=== PATIENT | female | born 1975 | race Caucasian/White ===

== ENCOUNTER 2016-06-13 19:23 | Emergency (ER) | payer MEDICAID ==
[~2016-06-13] VITALS: Ht 170.2 cm; Wt 127.0 kg
[~2016-06-13 19:23] MED LIST: ADIPEX-P37.5 M1 PO; ALBUTEROL-200 PUFFS/ IH; AMOXICILLIN 50500 MG PO; BENADRYL 25MG C25 MG PO; BENZONATATE100 M1 PO; BENZONATATE200 MG PO; CIPRO 500MG TA500 MG PO; CYMBALTA30 MG PO; DICYCLOMINE HCL20 MG PO; DILAUDID2 MG PO; ELAVIL GENERIC10 MG PO; ESTRADIOL2 MG PO; FLEXERIL10 MG PO; HYCODAN 1.5 MG480 ML PO; HYDROCODONE1 TABLET PO; KEFLEX 500MG.500 MG PO; LEVAQUIN250 M1 PO; LEVOFLOXACIN 5500 M1 PO; LISINOPRIL10 MG PO; LORTAB 5/500 501 TAB PO; LORTAB 500 MG-11 TAB PO; MEDROL 4MG. DOSE4 MG PO; METFORMIN500 MG PO; NAPROXEN500 MG PO; NOMEDS *; NORCO 325 MG-101 TAB PO; OMEPRAZOLE20 MG PO; PERCOCET1 TAB PO; PHENERGAN 25MG.25 M1 PO; PHENERGAN 25MG.25 MG PR; PREDNISONE50 MG PO; PRENATAL1 TA5 PO; PRILOSEC OTC20 MG PO; PROTONIX 40MG T40 MG PO; RANITIDINE HCL150 MG PO; SILVADENE CR 2020 GM EX; TESSALON PERLE100 M1 PO; TESSALON PERLE200 MG PO; TRIAMTERENE/HCT1 TA1 PO; VENTOLIN H0.09 MG/Ac IH; VICODIN 5/500 T1 TAB PO; VOLTAREN50 MG PO; VOLTAREN75 MG PO; ZANTAC 150150 MG PO; ZANTAC 300300 MG PO; ZESTRIL 10MG TA10 MG PO; ZITHROMAX Z PA250 MG PO; ZITHROMAX Z-PA250 M1 PO; ZITHROMAX Z-PA250 M2 PO; ZOFRAN4 MG PO
--- NOTE | 2016-06-13 20:08 | [facility] Report ---
History of Present Issue Date/Time Seen by Provider 06/13/162003 Visit Reason Pt arrived:Walked Presenting Problem:RIGHT EAR PAIN WITH SORE THROAT Location if Accident: Onset of symptoms date/time:/ or onset unknown for:MEDICAL HX UNKNOWN Have you (or family members/close friends) recently traveled outside the [place]? N If Yes, where/when: Have you had exposure to infectious disease within the past month? TB? Other? Specify: Patient states that she has been having sorethroat and pain in her right ear, states that she has not felt good for several days states that finally today she had to bring her son in to be seen so she registered to be seen also ALLERGIES Coded Allergies: Honey Bee (BEE,HONEY) (Mild, 12/28/14) milk (Mild, 05/03/15) Uncoded Allergies: CONTRAST MEDIA (Mild, 05/03/15) TAPE (S-BLISTERING WELTS 04/13/11) DISHWASHING LIQUID (STATES IT EATS THE SKIN OFF HER HANDS 08/19/12) Home Medications Active Scripts Ranitidine Hcl (Ranitidine 150MG) 150 MG PO DAILY #30 TAB Prov: 11/13/14 Reported Medications Metformin HCL (Metformin) 1,000 MG PO BID #60 TAB Albuterol Sulfate (Ventolin Hfa) 2 PUFFS IH PRN PRN SOA #18 LISINOPRIL (Lisinopril) 10 MG PO DAILY History Medical History General CAD? No Angina: No NE: No Hypertension? Yes Hyperlipidemia? No CHF? No DVT? No PE? No COPD? No Asthma? Yes Anemia? No GERD? Yes Gastric ulcers? No GI Bleed? No Hernia? Yes Thyroid Problems? No Hypothyroidism? No CVA? No Seizures? No Diabetes? Yes Insulin Dependent: No Insulin Pump: No Home FSBS? No Renal Insuffiency? No UTI? No Stones? No BPH? No GB Disease: Yes Nephritic Syndrome? No Asplenia? No Hepatitis? No Sickle Cell Disease? No Arthritis? No Migraines? No Cataracts? No Glaucoma? No MRSA? No HIV? No TB? No Anxiety? No Depression? No Cancer? No More? Yes Additional hx: NEUROPATHY Immunization HX DT/Tetanus UNKNOWN Flu NEVER Pneumonia NEVER Surgical Hx Previous Surgery?Y CHOLECYSTECTOMY 2007 ERCP STENT REPLACEMENT& D & C C- SECTION 06/18/08 D&E Family History Family HX Diabetes Yes CAD No Hypertension Yes Hyperlipidemia Yes Cancer No TB No Social History Smoking Hx Smoker: Current Every Day Smoker Tobacco: Yes Type Cigarettes Packs/day 1 1/2 - 2 Packs Alcohol Alcohol: No Review of Systems All Other Systems Reviewed and Negative ENT ear pain, throat pain. Comment Patient complaining of sorethroat, and pain in her right ear Physical Exam Vital Signs Vital Signs Date Time Temp Pulse Resp B/P Pulse O2 O2 Flow FiO2 Ox Delivery Rate 06/13 2028 98.2 111 16 98 06/13 1945 98.2 111 16 98 General Appearance normal appearance, WD/WN, no apparent distress Ear, Nose, Throat Throat red swollen, irritated, right ear mildly red, TM landmarks easily seen Respiratory Status Yes: trachea midline, chest symmetrical, non tender chest. No: respiratory distress. 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 No Departure Departure Time of Disposition 2027 Disposition DC Home or Self Care(routine) Clinical Impression Primary Impression: Upper respiratory infection Qualifiers: URI type: unspecified URI Qualified Code: J06.9 - Acute upper respiratory infection, unspecified Condition STABLE Patient Instructions DI for Ear Pain-Adult, Sore Throat Additional Instructions * Monitor Temp. Tylenol and/or Ibuprofen as needed. ER if fever is no less than 101 despite alternating Tylenol and Ibuprofen * Encourage fluids, water, Gatorade, powerade, pedialyte if /toddler/or child * Warm salt water gargles for throat irritation *Warm fluids *Sore throat lozenges *Sleep elevated *humidifier or vaporizer Follow up with family doctor Return if needed Discharge Counseling Counseled pt/family regarding diagnosis, medications/RX, home care, follow up needs Prescriptions Current Visit Scripts Azithromycin (Zithromycin (Z-AMANDA) 250MG Tab) 250 MG PO DAILY #6 TAB TAKE TWO (2) TABLETS ON DAY 1, THEN ONE (1) TABLET DAY #2 THRU #5 Methylprednisolone (Medrol Dose Amanda) 4 MG PO UD #1 AMANDA TAKE DIRECTED ON PACKAGING at 2031
[2016-06-13] MEDS ORDERED: MEDROL 4MG. DOSE4 MG PO (20:31)
[2016-06-13] MEDS ORDERED: ZITHROMAX Z PA250 MG PO (20:31)
--- OUTSIDE RECORDS SUMMARY | 2016-06-18 14:06 | External Medical Summary Rpt ---
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 48 20 20 08 WN YL 61 17 17 37 IN 0 64 PH E AR HC MA L CY 10 OF MG CY TA NT B HI AN A ME 68 03 04 30 30 00 HO Ac LO 38 -2 -1 .0 00 ME ti XI 20 3- 4- 00 06 TO ve CA 05 20 20 07 WN M 10 17 17 96 15 5 85 PH AR MG MA CY TA BL OF ET CY NT HI AN A ST 00 08 04 24 30 00 [place] Ac ER 40 -1 -0 .0 00 OF ti IL 97 1- 7- 00 06 ES ve E 99 20 20 25 SI WA 00 14 17 40 ON TE 9 73 AL R FO AR R TS IN JE PH CT AR IO MA N CY CE 68 03 04 40 10 00 HO Ac PH 18 -1 -0 .0 00 ME ti AL 00 6- 7- 00 06 TO ve EX 12 20 20 08 WN IN 20 17 17 33 2 62 PH 50 AR 0 MA MG CY CA OF PS UL CY E NT HI AN A [place] 00 03 04 [address] 71 -1 -0 .0 00 ME ti AT 30 6- 7- 00 06 TO ve IN 67 20 20 08 WN 83 17 17 33 10 1 61 PH 0, AR 00 MA 0 CY UN IT OF /G M CY CR NT EA HI M AN A LI 68 03 03 30 30 00 HO Ac SI 18 -0 -2 .0 00 ME ti NO 00 3- 4- 00 06 TO ve [place] 51 20 20 07 WN IL 40 17 17 84 3 60 PH 10 AR MA MG CY TA OF BL ET CY NT HI AN A RA 53 03 03 60 30 00 HO Ac NI 74 -0 -2 .0 00 ME ti TI 60 3- 4- 00 06 TO ve DI 25 20 20 07 WN NE 31 17 17 79 0 52 PH 15 AR 0 MA MG CY TA OF BL ET CY NT HI AN A FL 68 03 03 3. 3 00 HO Ac UC 46 -0 -2 00 00 ME ti ON 20 3- 4- 0 06 TO ve AZ 10 20 20 08 WN OL 34 17 17 25 E 0 83 PH 15 AR 0 MA MG CY TA OF BL ET CY NT HI AN A FE 00 03 03 30 30 00 HO Ac RR 90 -0 -2 .0 00 ME ti OU 47 3- 4- 00 06 TO ve S 59 20 20 07 WN BUENROSTRO 08 17 17 66 LF 0 31 PH AT AR E MA 32 CY 5 MG OF TA CY BL NT ET HI AN A ME 68 02 03 30 30 00 HO Ac LO 38 -2 -1 .0 00 ME ti XI 20 2- 7- 00 06 TO ve CA 05 20 20 07 WN M 10 17 17 96 15 5 85 PH AR MG MA CY TA BL OF ET CY NT HI AN A ME 68 02 03 60 30 00 HO Ac TF 38 -2 -1 .0 00 ME ti OR 20 2- 7- 00 06 TO ve OK 76 20 20 08 WN N 00 17 17 19 HC 5 32 PH L AR 1, MA 00 CY 0 MG OF TA CY BL NT ET HI AN A LE 68 02 03 10 10 00 HO Ac VO 18 -2 -1 .0 00 ME ti FL 00 2- 7- 00 06 TO ve OX 24 20 20 07 WN AC 10 17 17 92 IN 8 93 PH AR 50 MA 0 CY MG OF TA BL CY ET NT HI AN A FE 00 01 02 30 30 00 HO Ac RR 90 -2 -1 .0 00 ME ti OU 47 5- 7- 00 06 TO ve S 59 20 20 07 WN BUENROSTRO 08 17 17 66 LF 0 31 PH AT AR E MA 32 CY 5 MG OF TA CY BL NT ET HI AN A LI 68 01 02 30 30 00 HO Ac SI 18 -2 -1 .0 00 ME ti NO 00 5- 7- 00 06 TO ve [place] 51 20 20 07 WN IL 40 17 17 84 3 60 PH 10 AR MA MG CY TA OF BL ET CY NT HI AN A RA 53 01 02 60 30 00 HO Ac NI 74 -2 -1 .0 00 ME ti TI 60 5- 7- 00 06 TO ve DI 25 20 20 07 WN NE 31 17 17 79 0 52 PH 15 AR 0 MA MG CY TA OF BL ET CY NT HI AN A ME 68 01 02 30 30 00 HO Ac LO 38 -1 -1 .0 00 ME ti XI 20 7- 0- 00 06 TO ve CA 05 20 20 07 WN M 10 17 17 96 15 5 85 PH AR MG MA CY TA BL OF ET CY NT HI AN A ME 68 01 02 60 30 00 HO Ac TF 38 -1 -1 .0 00 ME ti OR 20 7- 0- 00 06 TO ve OK 76 20 20 07 WN N 00 17 17 34 HC 5 38 PH L AR 1, MA 00 CY 0 MG OF TA CY BL NT ET HI AN A FL 68 01 02 3. 3 00 HO Ac UC 46 -1 -1 00 00 ME ti ON 20 7- 0- 0 06 TO ve AZ 10 20 20 06 WN OL 34 17 17 75 E 0 10 PH 15 AR 0 MA MG CY TA OF BL ET CY NT HI AN A LE 68 01 02 10 10 00 HO Ac VO 18 -1 -1 .0 00 ME ti FL 00 1- 0- 00 06 TO ve OX 24 20 20 07 WN AC 10 17 17 92 IN 8 93 PH AR 50 MA 0 CY MG OF TA BL CY ET NT HI AN A TR 56 01 02 50 25 00 HO Ac UE 15 -1 -1 .0 00 ME ti 11 1- 0- 00 06 TO ve ME 46 20 20 07 WN TR 00 17 17 93 IX 1 03 PH AR GL MA UC CY OS E OF TE ST CY NT ST HI RI AN P A AM 00 01 02 20 10 00 HO Ac OX 78 -0 -0 .0 00 ME ti IC 12 6- 3- 00 06 TO ve IL 61 20 20 07 WN LI 30 17 17 90 N 5 84 PH 50 AR 0 MA MG CY CA OF PS UL CY E NT HI AN A LI 68 12 01 30 30 00 HO Ac SI 18 -2 -2 .0 00 ME ti NO 00 8- 0- 00 06 TO ve [place] 51 20 20 07 WN IL 40 16 17 84 3 60 PH 10 AR MA MG CY TA OF BL ET CY NT HI AN A FE 00 12 01 30 30 00 HO Ac RR 90 -2 -2 .0 00 ME ti OU 47 8- 0- 00 06 TO ve S 59 20 20 07 WN BUENROSTRO 08 16 17 66 LF 0 31 PH AT AR E MA 32 CY 5 MG OF TA CY BL NT ET HI AN A ME 68 12 01 30 30 00 HO Ac LO 38 -1 -1 .0 00 ME ti XI 20 4- 3- 00 06 TO ve CA 05 20 20 05 WN M 10 16 17 61 15 5 40 PH AR MG MA CY TA BL OF ET CY NT HI AN A RA 53 12 01 60 30 00 HO Ac NI 74 -2 -1 .0 00 ME ti TI 60 0- 3- 00 06 TO ve DI 25 20 20 07 WN NE 31 16 17 79 0 52 PH 15 AR 0 MA MG CY TA OF BL ET CY NT HI AN A ME 68 12 01 60 30 00 HO Ac TF 38 -1 -1 .0 00 ME ti OR 20 4- 3- 00 06 TO ve OK 76 20 20 07 WN N 00 16 17 34 HC 5 38 PH L AR 1, MA 00 CY 0 MG OF TA CY BL NT ET HI AN A LE 68 12 01 10 10 00 HO Ac VO 18 -1 -1 .0 00 ME ti FL 00 4- 3- 00 06 TO ve OX 24 20 20 07 WN AC 10 16 17 66 IN 8 28 PH AR 50 MA 0 CY MG OF TA BL CY ET NT HI AN A AM 00 12 01 30 30 00 HO Ac IT 78 -1 -1 .0 00 ME ti RI 11 4- 3- 00 06 TO ve PT 48 20 20 06 WN YL 61 16 17 05 IN 0 85 PH E AR HC MA L CY 10 OF MG CY TA NT B HI AN A Ib 62 12 0 No up 58 -1 ro 40 6- Lo fe 74 20 ng n 60 13 er 40 1 0M Ac G ti Ta ve bl et AC 00 12 0 No ET 40 -1 AM 60 6- Lo IN 48 20 ng OP 46 13 er HE 2 N- Ac CO ti D ve #3 TA BL ET Sa 63 06 0 No li 80 -3 ne 70 0- Lo 10 20 ng Fl 07 13 er us 5 h Ac 10 ti ML ve Sy ri ng e FL 00 10 10 5 2. 7 WA 71 AR Ac UC 17 -1 -1 00 L- 39 NO ti ON 25 5- 5- 0 MA 04 LD ve AZ 41 20 20 RT 5 OL 21 11 11 RI E 1 PH CH 15 AR AR 0 MA D MG CY W # TA BL 10 ET 05 91 00 09 10 0 60 30 WA 44 MA Ac 40 -2 -0 .0 L- 96 LI ti 60 8- 2- 00 MA 63 K ve 35 20 20 RT 2 ROSENBAUM 70 11 11 MM 5 PH AD AR U MA CY # 10 05 91 00 08 09 0 60 30 WA 44 MA Ac 40 -3 -0 .0 L- 96 LI ti 60 1- 2- 00 MA 00 K ve 35 20 20 RT 1 ROSENBAUM 70 11 11 MM 5 PH AD AR U MA CY # 10 05 91 ES 00 05 08 5 60 30 CL 23 CL Ac TR 55 -1 -1 .0 IN 85 AR ti AD 50 6- 7- 00 IC 52 KE ve IO 88 20 20 L 70 11 11 PH DE 2 2 AR RE MG MA K CY J TA BL LL ET C BUENROSTRO 53 07 08 1 20 10 WA 71 AR Ac LF 74 -2 -1 .0 L- 28 NO ti AM 60 8- 6- 00 MA 74 LD ve ET 27 20 20 RT 6 HO 20 11 11 RI XA 5 PH CH ZO AR AR LE MA D -T CY W MP # DS 10 05 TA 91 BL ET ME 00 06 08 99 60 30 WA 71 AR Ac TF 78 -0 -1 .0 L- 21 NO ti OR 15 3- 6- 00 MA 88 LD ve OK 05 20 20 RT 9 N 06 11 11 RI HC 1 PH CH L AR AR 50 MA D 0 CY W MG # TA 10 BL 05 ET 91 BUENROSTRO 53 07 07 1 20 10 WA 71 AR Ac LF 74 -2 -2 .0 L- 28 NO ti AM 60 8- 9- 00 MA 74 LD ve ET 27 20 20 RT 6 HO 20 11 11 RI XA 5 PH CH ZO AR AR LE MA D -T CY W MP # DS 10 05 TA 91 BL ET ES 00 05 07 5 60 30 CL 23 CL Ac TR 55 -1 -1 .0 IN 85 AR ti AD 50 6- 3- 00 IC 52 KE ve IO 88 20 20 L 70 11 11 PH DE 2 2 AR RE MG MA K CY J TA BL LL ET C TR 00 07 07 0 60 30 WA 44 MA Ac AM 37 -0 -0 .0 L- 94 LI ti AD 84 6- 6- 00 MA 79 K ve OL 15 20 20 RT 7 ROSENBAUM 10 11 11 MM HC 1 PH AD L AR U 50 MA CY MG # TA 10 BL 05 ET 91 ES 00 05 06 5 60 30 CL 23 CL Ac TR 55 -1 -1 .0 IN 85 AR ti AD 50 6- 5- 00 IC 52 KE ve IO 88 20 20 L 70 11 11 PH DE 2 2 AR RE MG MA K CY J TA BL LL ET C 00 06 06 0 53 28 WA 71 AR Ac 06 -0 -0 .0 L- 21 NO ti 90 3- 3- 00 MA 89 LD ve 47 20 20 RT 0 19 11 11 RI 7 PH CH AR AR MA D CY W # 10 05 91 ME 00 06 06 99 60 30 WA 71 AR Ac TF 78 -0 -0 .0 L- 21 NO ti OR 15 3- 3- 00 MA 88 LD ve OK 05 20 20 RT 9 N 06 11 11 RI HC 1 PH CH L AR AR 50 MA D 0 CY W MG # TA 10 BL 05 ET 91 BE 68 06 06 1 60 20 WA 71 AR Ac NZ 38 -0 -0 .0 L- 21 NO ti ON 20 3- 3- 00 MA 88 LD ve AT 24 20 20 RT 8 AT 80 11 11 RI E 1 PH CH 20 AR AR 0 MA D MG CY W # CA PS 10 UL 05 E 91 AZ 00 06 06 1 6. 5 WA 71 AR Ac IT 78 -0 -0 00 L- 21 NO ti HR 11 3- 3- 0 MA 88 LD ve OM 49 20 20 RT 7 YC 66 11 11 RI IN 8 PH CH AR AR 25 MA D 0 CY W MG # TA 10 BL 05 ET 91 [place] 00 05 05 0 25 5 CL 23 CH Ac ED 05 -2 -2 .0 IN ES ti NI 40 5- 5- 00 IC 42 TN ve SO 01 20 20 UT NE 72 11 11 PH 5 AR OK 10 MA CH CY AE MG L LL TA C BL ET CI 00 05 05 0 14 7 CL 23 CH Ac [place] 14 -2 -2 .0 IN ES ti OF 32 5- 5- 00 IC 41 TN ve LO 03 20 20 UT XA 70 11 11 PH CI 1 AR OK N MA CH HC CY AE L L 50 LL 0 C MG TA B ES 00 05 05 5 60 30 CL 23 CL Ac TR 55 -1 -1 .0 IN AR ti AD 50 6- 6- 00 IC 52 KE ve IO 88 20 20 L 70 11 11 PH DE 2 2 AR RE MG MA K CY J TA BL LL ET C 00 05 05 0 15 5 71 WE Ac 37 -0 -1 .0 L- 18 HR ti 80 9- 0- 00 MA 65 MA ve 75 20 20 RT 3 N 19 11 11 II 3 PH I AR WI MA LL CY IA # M E 10 05 91 ME 00 05 05 0 21 6 71 WE Ac TH 60 -0 -1 .0 L- 18 HR ti YL 34 9- 0- 00 MA 65 MA ve [place] 59 20 20 RT 2 N ED 31 11 11 II NI 5 PH I SO AR WI LO MA LL NE CY IA 4 # M E MG 10 05 DO 91 SE PK 00 05 05 0 10 2 44 WE Ac 40 -0 -1 .0 L- 93 HR ti 60 9- 0- 00 MA 61 MA ve 35 20 20 RT 1 N 70 11 11 II 5 PH I AR WI MA LL CY IA # M E 10 05 91 AM 00 03 05 1 30 10 71 AR Ac OX 78 -1 -0 .0 L- 10 NO ti IC 12 4- 8- 00 MA 88 LD ve IL 61 20 20 RT 5 LI 33 11 11 RI N 1 PH CH 50 AR AR 0 MA D MG CY W # CA PS 10 UL 05 E 91 FL 00 04 04 2 1. 1 71 CL Ac UC 17 -1 -1 00 L- 15 AR ti ON 25 5- 8- 0 MA 42 KE ve AZ 41 20 20 RT 4 OL 21 11 11 DE E 1 PH RE 15 AR K 0 MA J MG CY # TA BL 10 ET 05 91 ES 00 04 04 0 60 30 SD 71 CL Ac TR 55 -1 -1 .0 L- 15 AR ti AD 50 5- 5- 00 MA 42 KE ve IO 88 20 20 RT 5 L 70 11 11 DE 2 2 PH RE MG AR K MA J TA CY BL # ET 10 05 91 FL 00 04 04 2 1. 1 SD 71 CL Ac UC 17 -1 -1 00 L- 15 AR ti ON 25 5- 5- 0 MA 42 KE ve AZ 41 20 20 RT 4 OL 21 11 11 DE E 1 PH RE 15 AR K 0 MA J MG CY # TA BL 10 ET 91 00 04 04 0 20 3 SD 44 CL Ac 40 -0 -0 .0 L- 92 AR ti 60 1- 1- 00 MA 77 KE ve 35 20 20 RT 4 80 11 11 DE 1 PH RE AR K MA J CY # 10 05 AM 00 03 03 1 30 10 SD 71 AR Ac OX 78 -1 -1 .0 L- 10 NO ti IC 12 4- 4- 00 MA 88 LD ve IL 61 20 20 RT 5 LI 33 11 11 RI N 1 PH CH 50 AR AR 0 MA D MG CY W # CA PS 10 UL 05 E 91 AN 43 03 03 1 15 15 SD 71 AR Ac TI 19 -1 -1 .0 L- 10 NO ti PY 90 4- 4- 00 MA 88 LD ve RI 01 20 20 RT 4 NE 61 11 11 RI -B 5 PH CH EN AR AR ZO MA D CA CY W IN # E EA [address] 91 OP 00 02 02 0 16 5 SD 44 RU Ac 40 -2 -2 .0 L- 91 SH ti 60 1- 1- 00 MA 88 ve 35 20 20 RT 4 NE 70 11 11 IL 5 PH C AR MA CY # 10 05 91 00 02 02 0 16 4 SD 44 RU Ac 40 -1 -1 .0 L- 91 SH ti 60 6- 6- 00 MA 77 ve 35 20 20 RT 5 NE 70 11 11 IL 5 PH C AR MA CY # 10 05 91 AM 00 02 02 0 30 10 SD 71 RU Ac OX 78 -0 -0 .0 L- 05 SH ti IC 12 7- 7- 00 MA 87 ve IL 61 20 20 RT 4 NE LI 33 11 11 IL N 1 PH C 50 AR 0 MA MG CY # CA PS 10 UL 05 E 91 00 04 04 0 12 3 WA 44 WE Ac 40 -0 -0 .0 L- 84 HR ti 60 3- 3- 00 MA 65 MA ve 35 20 20 RT 8 N 70 10 10 II 5 PH I AR WI MA LL CY IA # M E 10 05 91 59 10 06 06 30 30 WA 69 CL Ac 63 -2 -1 .0 L- 92 AR ti 00 4- 8- 00 MA 61 KE ve 41 20 20 RT 1 43 08 09 DE 5 PH RE AR K MA J CY #5 91 00 06 06 00 14 2 WA 44 ROSENBAUM Ac 40 -0 -1 .0 L- 77 MO ti 60 8- 8- 00 MA 28 N ve 36 20 20 RT 3 AN [address] 1 PH EW AR R MA CY #5 91 NA 53 06 06 00 60 30 CL 19 CL Ac [place] 74 -0 -1 .0 IN 52 AR ti OX 60 9- 8- 00 IC 63 KE ve EN 19 20 20 00 09 09 PH DE 50 1 AR RE 0 MA K MG CY J TA BL ET BUENROSTRO 53 05 06 00 20 10 WA 70 CL Ac LF 74 -2 -0 .0 L- 22 AR ti AM 60 8- 4- 00 MA 29 KE ve ET 27 20 20 RT 4 HO 20 09 09 DE XA 5 PH RE ZO AR K LE MA J -T CY MP #5 DS 91 TA BL ET OX 00 05 05 00 30 5 RI 78 CL Ac YC 40 -0 -2 .0 TE 24 AR ti OD 60 1- 1- 00 67 KE ve ON 51 20 20 AI E- 20 09 09 D DE AC 1 PH RE ET AR K AM M J IN #3 OP 93 HE 8 N 5- 32 5 BUENROTSRO 53 05 05 00 14 7 WA 70 CL Ac LF 74 -0 -2 .0 L- 19 AR ti AM 60 8- 1- 00 MA 77 KE ve ET 27 20 20 RT 7 HO 20 09 09 DE XA 5 PH RE ZO AR K LE MA J -T CY MP #5 DS 91 TA BL ET 00 05 05 00 7. 7 WA 70 CL Ac 37 -0 -2 00 L- 19 AR ti 80 8- 1- 0 MA 77 KE ve 20 20 20 RT 8 89 09 09 DE 3 PH RE AR K MA J CY #5 91 IB 53 05 05 00 40 6 RI 78 CL Ac UP 74 -0 -2 .0 TE 24 AR ti RO 60 2- 1- 00 68 KE ve FE 46 20 20 AI N 40 09 09 D DE 40 5 PH RE 0 AR K MG M J #3 TA 93 BL 8 ET RA 00 10 05 04 60 30 WA 69 CL Ac NI 17 -2 -0 .0 L- 92 AR ti TI 24 4- 7- 00 MA 61 KE ve DI 35 20 20 RT 2 NE 77 08 09 DE 0 PH RE 15 AR K 0 MA J MG CY TA #5 BL 91 ET 00 04 05 00 30 2 WA 44 CL Ac 40 -2 -0 .0 L- 76 AR ti 60 1- 7- 00 MA 07 KE ve 35 20 20 RT 3 70 09 09 DE 5 PH RE AR K MA J CY #5 91 00 04 04 01 30 3 WA 44 CL Ac 40 -0 -2 .0 L- 75 AR ti 60 6- 3- 00 MA 69 KE ve 35 20 20 RT 4 70 09 09 DE 5 PH RE AR K MA J CY #5 91 00 04 04 00 30 3 WA 44 CL Ac 40 -0 -2 .0 L- 75 AR ti 60 6- 3- 00 MA 69 KE ve 35 20 20 RT 4 70 09 09 DE 5 PH RE AR K MA J CY #5 91 59 10 04 05 30 30 WA 69 CL Ac 63 -2 -2 .0 L- 92 AR ti 00 4- 3- 00 MA 61 KE ve 41 20 20 RT 1 43 08 09 DE 5 PH RE AR K MA J CY #5 91 59 10 03 04 30 30 WA 69 CL Ac 63 -2 -2 .0 L- 92 AR ti 00 4- 6- 00 MA 61 KE ve 41 20 20 RT 1 43 08 09 DE 5 PH RE AR K MA J CY #5 91 RA 00 10 03 03 60 30 WA 69 CL Ac NI 17 -2 -1 .0 L- 92 AR ti TI 24 4- 2- 00 MA 61 KE ve DI 35 20 20 RT 2 NE 77 08 09 DE 0 PH RE 15 AR K 0 MA J MG CY TA #5 BL 91 ET 59 10 02 03 30 30 WA 69 CL Ac 63 -2 -2 .0 L- 92 AR ti 00 4- 6- 00 MA 61 KE ve 41 20 20 RT 1 43 08 09 DE 5 PH RE AR K MA J CY #5 91 AZ 00 02 02 00 6. 5 WA 70 GA Ac IT 78 -0 -2 00 L- 07 IN ti HR 11 8- 6- 0 MA 21 EY ve OM 49 20 20 RT 7 YC 66 09 09 OK IN 8 PH CH AR AE 25 MA L 0 CY S MG #5 TA 91 BL ET ME 00 02 02 00 21 6 WA 70 GA Ac TH 60 -0 -2 .0 L- 07 IN ti YL 34 8- 6- 00 MA 21 EY ve [place] 59 20 20 RT 8 ED 31 09 09 OK NI 5 PH CH SO AR AE LO MA L NE CY S 4 #5 MG 91 DO SE PK RA 00 10 01 02 60 30 WA 69 CL Ac NI 17 -2 -3 .0 L- 92 AR ti TI 24 4- 0- 00 MA 61 KE ve DI 35 20 20 RT 2 NE 77 08 09 DE 0 PH RE 15 AR K 0 MA J MG CY TA #5 BL 91 ET TE 51 01 01 01 20 3 WA 70 CL Ac RC 67 -0 -3 .0 L- 03 AR ti ON 21 9- 0- 00 MA 17 KE ve AZ 30 20 20 RT 8 OL 20 09 09 DE E 0 PH RE 0. AR K 8% MA J CY CR EA #5 M 91 63 01 01 00 10 2 WA 44 GO Ac 30 -0 -1 .0 L- 73 BL ti 40 3- 5- 00 MA 33 E ve 56 20 20 RT 8 RO 00 09 09 ND 5 PH AL AR E MA CY #5 91 TE 51 01 01 00 20 3 WA 70 CL Ac RC 67 -0 -1 .0 L- 03 AR ti ON 21 9- 5- 00 MA 17 KE ve AZ 30 20 20 RT 8 OL 20 09 09 DE E 0 PH RE 0. AR K 8% MA J CY CR EA #5 M 91 ME 00 01 01 00 21 6 WA 70 GO Ac TH 60 -0 -1 .0 L- 02 BL ti YL 34 3- 5- 00 MA 39 E ve [place] 59 20 20 RT 1 RO ED 31 09 09 ND NI 5 PH AL SO AR E LO MA NE CY 4 #5 MG 91 DO SE PK FE 00 01 01 00 30 30 WA 88 CL Ac RR 67 -0 -1 .0 L- 13 AR ti OU 70 9- 5- 00 MA 33 KE ve S 07 20 20 RT 5 BUENROSTRO 01 09 09 DE LF 0 PH RE AT AR K E MA J 32 CY 5 MG #5 91 TA BL ET CE 00 12 01 00 20 10 WA 70 CA Ac FD 78 -2 -1 .0 L- 01 ST ti IN 12 9- 5- 00 MA 64 IL ve IR 17 20 20 RT 0 LO 66 08 09 30 0 PH JR 0 AR J MG MA V CY CA PS #5 UL 91 E NA 00 12 01 00 17 30 WA 70 CA Ac SO 08 -2 -1 .0 L- 01 ST ti NE 51 9- 5- 00 MA 64 IL ve X 28 20 20 RT 1 LO 50 80 08 09 1 PH JR MC AR J G MA V NA CY SA L #5 SP 91 RA Y LO 00 12 01 00 30 30 WA 88 CA Ac RA 78 -2 -1 .0 L- 13 ST ti TA 15 9- 5- 00 MA 27 IL ve DI 07 20 20 RT 8 LO NE 70 08 09 1 PH JR 10 AR J MA V MG CY TA #5 BL 91 ET 59 10 01 02 30 30 WA 69 CL Ac 63 -2 -1 .0 L- 92 AR ti 00 4- 5- 00 MA 61 KE ve 41 20 20 RT 1 43 08 09 DE 5 PH RE AR K MA J CY #5 91 ME 00 12 01 00 21 6 WA 69 GA Ac TH 60 -1 -0 .0 L- 99 IN ti YL 34 4- 1- 00 MA 82 EY ve [place] 59 20 20 RT 7 ED 31 08 09 OK NI 5 PH CH SO AR AE LO MA L NE CY S 4 #5 MG 91 DO SE PK 00 12 01 00 18 7 WA 88 GA Ac 03 -1 -0 0. L- 13 IN ti 18 4- 1- 00 MA 21 EY ve 68 20 20 0 RT 8 51 08 09 OK 2 PH CH AR AE MA L CY S #5 91 AZ 00 12 01 00 6. 5 WA 69 GA Ac IT 78 -1 -0 00 L- 99 IN ti HR 11 4- 1- 0 MA 82 EY ve OM 49 20 20 RT 8 YC 66 08 09 OK IN 8 PH CH AR AE 25 MA L 0 CY S MG #5 TA 91 BL ET 00 11 12 00 20 5 WA 69 CL Ac 40 -2 -0 .0 L- 97 AR ti 62 6- 4- 00 MA 34 KE ve 04 20 20 RT 8 10 08 08 DE 1 PH RE AR K MA J CY #5 91 RA 00 10 12 01 60 30 WA 69 CL Ac NI 17 -2 -0 .0 L- 92 AR ti TI 24 4- 4- 00 MA 61 KE ve DI 35 20 20 RT 2 NE 77 08 08 DE 0 PH RE 15 AR K 0 MA J MG CY TA #5 BL 91 ET 59 10 12 01 30 30 WA 69 CL Ac 63 -2 -0 .0 L- 92 AR ti 00 4- 4- 00 MA 61 KE ve 41 20 20 RT 1 43 08 08 DE 5 PH RE AR K MA J CY #5 91 59 10 11 00 30 30 WA 69 CL Ac 63 -2 -0 .0 L- 92 AR ti 00 4- 7- 00 MA 61 KE ve 41 20 20 RT 1 43 08 08 DE 5 PH RE AR K MA J CY #5 91 RA 00 10 11 00 60 30 WA 69 CL Ac NI 17 -2 -0 .0 L- 92 AR ti TI 24 4- 7- 00 MA 61 KE ve DI 35 20 20 RT 2 NE 77 08 08 DE 0 PH RE 15 AR K 0 MA J MG CY TA #5 BL 91 ET Vital Signs 02-04-2013 21:04 Name Value Interpretat Reference Comment ion Range BP 84 mm[Hg] Diastolic BP Systolic 118 mm[Hg] Heart 89 /min Rate/Pulse O2% 98 % Respiratory 18 /min Rate 02-04-2013 20:23 Name Value Interpretat Reference Comment ion Range Body 98.8 [degF] Temperature BP 99 mm[Hg] Diastolic BP Systolic 130 mm[Hg] Heart 88 /min Rate/Pulse O2% 98 % Respiratory 21 /min Rate 11-25-2012 23:44 Name Value Interpretat Reference Comment ion Range Body 98.3 [degF] Temperature BP 98 mm[Hg] Diastolic BP Systolic 150 mm[Hg] Heart 102 /min Rate/Pulse O2% 97 % Respiratory 17 /min Rate 11-25-2012 23:43 Name Value Interpretat Reference Comment ion Range Body 98.3 [degF] Temperature 11-25-2012 22:30 Name Value Interpretat Reference Comment ion Range BP 63 mm[Hg] Diastolic BP Systolic 160 mm[Hg] Heart 105 /min Rate/Pulse O2% 95 % Respiratory 18 /min Rate 08-19-2012 15:31 Name Value Interpretat Reference Comment ion Range BP 92 mm[Hg] Diastolic BP Systolic 139 mm[Hg] Heart 96 /min Rate/Pulse O2% 98 % Respiratory 18 /min Rate 08-19-2012 13:05 Name Value Interpretat Reference Comment ion Range Body 98.1 [degF] Temperature BP 97 mm[Hg] Diastolic BP Systolic 148 mm[Hg] Heart 92 /min Rate/Pulse O2% 98 % Respiratory 20 /min Rate Results Labs Lab Lab Date Result Refere Interp Status Commen Order Detail nces retati t Range on COMPREHENSIVE METABOLIC PANEL (11-25-2012 22:25) Glucose 217 74-106 complet 013 mg/dL ed Bld-mCn 22:25 c BUN 14 7-18 complet Bld-mCn 013 mg/dL ed c 22:25 Creat 1.1 0.6-1.0 complet SerPl-m 013 mg/dL ed Cnc 22:25 ESTIMAT 147 50-200 complet ED 013 ML/MIN ed CREATIN 22:25 INE CLEARAN CE GFR 56 59- complet (ESTIMA 013 ML/MIN ed ASUNCION) 22:25 Sodium 138 136-145 complet SerPl-s 013 mmoL/L ed Cnc 22:25 Potassi 3.1 3.5-5.1 complet um 013 mmoL/L ed SerPl-s 22:25 Cnc Chlorid 97 98-107 complet e 013 mmoL/L ed SerPl-s 22:25 Cnc CO2 30 21.0-32 complet SerPl-s 013 mmoL/L .0 ed Cnc 22:25 Calcium 9.6 8.5-10. complet 013 mg/dL 1 ed SerPl-m 22:25 Cnc Prot 7.6 6.4-8.2 complet SerPl-m 013 gm/dL ed Cnc 22:25 Albumin 3.6 3.4-5.0 complet 013 gm/dL ed SerPl-m 22:25 Cnc Globuli 4.0 1.3-3.2 complet n 013 gm/dL ed Ser-mCn 22:25 c Albumin 0.9 UNK 1.1-1.8 complet /Glob 013 ed SerPl-m 22:25 Rto Bilirub 0.3 0.2-1.0 complet 013 mg/dL ed SerPl-m 22:25 Cnc AST 20 U/L 15-37 complet SerPl-c 013 ed Cnc 22:25 ALT 49 U/L 30-65 complet SerPl-c 013 ed Cnc 22:25 ALP 91 U/L 50-136 complet SerPl-c 013 ed Cnc 22:25 Amylase SerPl-cCnc (11-25-2012 22:25) Amylase 57 U/L 25-115 complet 013 ed SerPl-c 22:25 Cnc LIPASE (11-25-2012 22:25) LIPASE 104 U/L 73-393 complet 013 ed 22:25 CBC with AUTO DIFF (11-25-2012 22:25) WBC # 06-2 10.7 4.8-10. complet Bld 013 K/MM3 8 ed Auto 22:25 RBC # 11-25-2 4.89 4.2-5.4 complet Bld 013 M/mm3 ed Auto 22:25 Hgb 11-25-2 14.9 12.2-16 complet Bld-mCn 013 g/dL .2 ed c 22:25 Hct Fr 43.1 % 37.0-47 complet Bld 013 .0 ed 22:25 MCV RBC 11-25- 88.1 fl 82.2-97 complet 013 .8 ed 22:25 MCH RBC 11-25- 30.4 pg 27-31.2 complet Qn 013 ed Auto 22:25 MEAN 11-25- 34.5 31.8-35 complet CORPUSC 013 g/dl .4 ed ULAR 22:25 HGB CONC RDW RBC 11-25-2 14.0 % 11.5-17 complet Auto 013 .5 ed 22:25 Platele 11-25-2 302 142-424 complet t Bld 013 K/mm3 ed Ql 22:25 Manual MEAN 11-25-2 8.0 fl 7.4-10. complet PLATELE 013 4 ed T 22:25 VOLUME Granulo 11-25- 67.1 % 37.0-80 complet cytes 013 .0 ed Fr Bld 22:25 Auto LYMPH % 06-2 25.8 % 10-50.0 complet 013 ed 22:25 Monocyt 10-06-2 4.5 % 1.7-9.3 complet es Fr 013 ed Bld 22:25 Auto Eosinop 10-06-2 2.1 % 0.1-12. complet hil Fr 013 0 ed Bld 22:25 Auto Basophi 10-06-2 0.4 % 0.1-2.0 complet ls Fr 013 ed Bld 22:25 Auto Granulo 10-06-2 7.2 1.8-7.8 complet cytes # 013 K/mm3 ed Bld 22:25 Auto Lymphoc 10-06-2 2.8 0.7-4.5 complet ytes Fr 013 K/mm3 ed Bld 22:25 Auto Monocyt 10-06-2 0.5 0.1-1.0 complet es # 013 K/mm3 ed Bld 22:25 Auto Eosinop 10-06-2 0.2 0.0-0.4 complet hil # 013 K/mm3 ed Bld 22:25 Auto Basophi 1006-2 0.1 0-0.2 complet ls # 013 K/MM3 ed Bld 22:25 Auto B-HCG Ur Ql (11-25-2012 22:00) B-HCG 2 NEGATIV NEG complet Ur Ql 013 E ed 22:00 URINALYSIS/COMPLETE (11-25-2012 22:00) URINE 11-25- YELLOW YELLOW complet COLOR 013 ed 22:00 URINE 11-25-2 CLEAR CLEAR complet APPEARA 013 ed NCE 22:00 URINE 2 2+ NEG complet GLUCOSE 013 ed - 22:00 DIPSTIC K URINE NEGATIV NEG complet BILIRUB 013 E ed IN - 22:00 DIPSTIC K URINE NEGATIV NEG complet KETONE 013 E mg/dL ed 22:00 URINE 11-25-2 1.020 1.005-1 complet SPECIFI 013 UNK .030 ed C 22:00 GRAVITY URINE 2 3+ NEG complet BLOOD 013 ed 22:00 URINE 11-25-2 5.5 UNK 5.0-8.5 complet PH 013 ed 22:00 URINE 11-25-2 NEGATIV NEG complet PROTEIN 013 E mg/dL ed - 22:00 DIPSTIC K URINE 2 0.2 NEG complet UROBILI 013 E.U./dL ed NOGEN - 22:00 DIPSTIC K URINE NEGATIV NEG complet NITRATE 013 E ed - 22:00 DIPSTIC K URINE NEGATIV NEG complet LEUK 013 E ed ESTERAS 22:00 E URINE 3-5 0 complet RBC 013 rbc/hpf ed 22:00 URINE 3-5 O complet WBC 013 wbc/hpf ed 22:00 URINE 20-50 0-5 complet SQUAMOU 013 #/hpf ed S CELLS 22:00 COMPREHENSIVE METABOLIC PANEL (08-19-2012 11:30) Glucose 08-19- 203 74-106 complet 013 mg/dL ed Bld-mCn 11:30 c BUN 6 mg/dL 7-18 complet Bld-mCn 013 ed c 11:30 Creat 0.9 0.6-1.0 complet SerPl-m 013 mg/dL ed Cnc 11:30 ESTIMAT 189 50-200 complet ED 013 ML/MIN ed CREATIN 11:30 INE CLEARAN CE GFR 71 59- complet (ESTIMA 013 ML/MIN ed ASUNCION) 11:30 Sodium 08-19- 137 136-145 complet SerPl-s 013 mmoL/L ed Cnc 11:30 Potassi 3.8 3.5-5.1 complet um 013 mmoL/L ed SerPl-s 11:30 Cnc Chlorid 100 98-107 complet e 013 mmoL/L ed SerPl-s 11:30 Cnc CO2 26 21.0-32 complet SerPl-s 013 mmoL/L .0 ed Cnc 11:30 Calcium 8.9 8.5-10. complet 013 mg/dL 1 ed SerPl-m 11:30 Cnc Prot 08-19- 7.6 6.4-8.2 complet SerPl-m 013 gm/dL ed Cnc 11:30 Albumin 08-19- 3.6 3.4-5.0 complet 013 gm/dL ed SerPl-m 11:30 Cnc Globuli 4.0 1.3-3.2 complet n 013 gm/dL ed Ser-mCn 11:30 c Albumin 30-2 0.9 UNK 1.1-1.8 complet /Glob 013 ed SerPl-m 11:30 Rto Bilirub 30-2 0.3 0.2-1.0 complet 013 mg/dL ed SerPl-m 11:30 Cnc AST 08-19-2 19 U/L 15-37 complet SerPl-c 013 ed Cnc 11:30 ALT 08-19-2 48 U/L 30-65 complet SerPl-c 013 ed Cnc 11:30 ALP 08-19-2 78 U/L 50-136 complet SerPl-c 013 ed Cnc 11:30 B-HCG SerPl EIA 3rd IS-aCnc (08-19-2012 11:30) B-HCG 08-19-2 2676.8 complet SerPl 013 mIU/ML ed EIA 3rd 11:30 IS-aCnc CBC with AUTO DIFF (08-19-2012 11:30) WBC # 30-2 9.2 4.8-10. complet Bld 013 K/MM3 8 ed Auto 11:30 RBC # 08-19-2 5.34 4.2-5.4 complet Bld 013 M/mm3 ed Auto 11:30 Hgb 08-19-2 15.5 12.2-16 complet Bld-mCn 013 g/dL .2 ed c 11:30 Hct Fr 08-19-2 47.0 % 37.0-47 complet Bld 013 .0 ed 11:30 MCV RBC 08-19-2 88.0 fl 82.2-97 complet 013 .8 ed 11:30 MCH RBC 08-19-2 29.0 pg 27-31.2 complet Qn 013 ed Auto 11:30 MEAN 30-2 33.0 31.8-35 complet CORPUSC 013 g/dl .4 ed ULAR 11:30 HGB CONC RDW RBC 08-19-2 14.1 % 11.5-17 complet Auto 013 .5 ed 11:30 Platele 30-2 310 142-424 complet t Bld 013 K/mm3 ed Ql 11:30 Manual MEAN 30-2 8.4 fl 7.4-10. complet PLATELE 013 4 ed T 11:30 VOLUME Granulo 30-2 73.2 % 37.0-80 complet cytes 013 .0 ed Fr Bld 11:30 Auto LYMPH % 06-30-2 20.1 % 10-50.0 complet 013 ed 11:30 Monocyt 06-30-2 4.9 % 1.7-9.3 complet es Fr 013 ed Bld 11:30 Auto Eosinop 06-30-2 1.2 % 0.1-12. complet hil Fr 013 0 ed Bld 11:30 Auto Basophi 06-30-2 0.6 % 0.1-2.0 complet ls Fr 013 ed Bld 11:30 Auto Granulo -30-2 6.7 1.8-7.8 complet cytes # 013 K/mm3 ed Bld 11:30 Auto Lymphoc -30-2 1.9 0.7-4.5 complet ytes Fr 013 K/mm3 ed Bld 11:30 Auto Monocyt -30-2 0.5 0.1-1.0 complet es # 013 K/mm3 ed Bld 11:30 Auto Eosinop -30-2 0.1 0.0-0.4 complet hil # 013 K/mm3 ed Bld 11:30 Auto Basophi -30-2 0.1 0-0.2 complet ls # 013 K/MM3 ed Bld 11:30 Auto B-HCG Ur Ql (08-19-2012 11:30) B-HCG 08-19-2 POSITIV NEG complet Ur Ql 013 E ed 11:30 URINALYSIS/COMPLETE (08-19-2012 11:30) URINE 30-2 DARK YELLOW complet COLOR 013 YELLOW ed 11:30 URINE 08-19-2 Cloudy CLEAR complet APPEARA 013 ed NCE 11:30 URINE 08-19-2 TRACE NEG complet GLUCOSE 013 ed - 11:30 DIPSTIC K URINE 08-19-2 1+ NEG complet BILIRUB 013 ed IN - 11:30 DIPSTIC K URINE 08-19-2 NEGATIV NEG complet KETONE 013 E mg/dL ed 11:30 URINE 08-19-2 Greater 1.005-1 complet SPECIFI 013 than .030 ed C 11:30 or GRAVITY equal to 1.030 URINE 08-19-2 3+ NEG complet BLOOD 013 ed 11:30 URINE 08-19-2 5.5 UNK 5.0-8.5 complet PH 013 ed 11:30 URINE 06-30-2 2+ NEG complet PROTEIN 013 mg/dL ed - 11:30 DIPSTIC K URINE 08-19-2 0.2 NEG complet UROBILI 013 E.U./dL ed NOGEN - 11:30 DIPSTIC K URINE 08-19-2 NEGATIV NEG complet NITRATE 013 E ed - 11:30 DIPSTIC K URINE 08-19-2 NEGATIV NEG complet LEUK 013 E ed ESTERAS 11:30 E URINE 2 50-100 0 complet RBC 013 rbc/hpf ed 11:30 URINE 08-19-2 5-10 O complet WBC 013 wbc/hpf ed 11:30 URINE 08-19-2 OCC 0-5 complet SQUAMOU 013 #/hpf ed S CELLS 11:30 URINE 2 1+ O complet BACTERI 013 ed A 11:30 Procedures Procedure DOS Code Location Performer Comment HEMOGLOBI 04374 MATEO COBIAN N 7 DIABETIC GLYCOSYLA [facility] A1C P CHIROPRAC 47144 JAQUELIN BAKARI TIC 7 N FAMILY MANIPULAT CHIROPRAC ROSS TX T SPINAL 3-4 REGIONS CHIROPRAC 93549 LEODANRoman LONG TIC 7 N FAMILY MANIPULAT CHIROPRAC ROSS [place] T SPINAL 3-4 REGIONS CHIROPRAC 75322 LEODANRoman VILLEGAS TIC 7 N FAMILY MANIPULAT CHIROPRAC ROSS [place] T SPINAL 3-4 REGIONS CHIROPRAC 53548 LEODANRoman BAKARI TIC 7 N FAMILY MANIPULAT CHIROPRAC ROSS [place] T SPINAL 3-4 REGIONS [facility]RAC [address] [facility] FAMILY MANIPULAT CHIROPRAC ROSS TX T SPINAL 3-4 REGIONS CHIROPRAC 77467 [facility] BAKARI TIC 7 N FAMILY MANIPULAT CHIROPRAC ROSS TX T SPINAL 3-4 REGIONS HEMOGLOBI 71774 MATEO COBIAN N 6 DIABETIC GLYCOSYLA [facility] A1C P COMPREHEN 65875 [facility] SIVE 6 [facility] METABOLIC INC INC PANEL BLOOD 14618 HY[facility]IN[facility] COUNT 6 [facility] COMPLETE INC INC AUTO&AUTO DIFRNTL WBC COLLECTIO 84645 HYACINTH HYACINTH N VENOUS 6 [facility] BLOOD INC INC VENIPUNCT URE LIPID 25027 HYACINTH HYACINTH PANEL 6 [facility] INC INC CHIROPRAC 23797 JAQUELIN VILLEGAS TIC 6 N FAMILY RANDY MANIPULAT CHIROPRAC ROSS TX T SPINAL 3-4 REGIONS CHIROPRAC 29798 JAQUELIN VILLEGAS TIC 6 N FAMILY RANDY MANIPULAT CHIROPRAC ROSS TX T SPINAL 3-4 REGIONS HEMOGLOBI 59488 MATEO COBIAN N 6 DIABETIC GLYCOSYLA CENTER, ASUNCION A1C P CHIROPRAC 59496 JAQUELIN VILLEGAS TIC 6 N FAMILY RANDY MANIPULAT CHIROPRAC ROSS TX T SPINAL 3-4 REGIONS CHIROPRAC 84451 JAQUELIN VILLEGAS TIC 6 N FAMILY RANDY MANIPULAT CHIROPRAC ROSS TX T SPINAL 3-4 REGIONS CHIROPRAC 06032 JAQUELIN LONG TIC 6 N FAMILY DARRON MANIPULAT CHIROPRAC ROSS TX T SPINAL 3-4 REGIONS CHIROPRAC 86311 JAQUELIN VILLEGAS TIC 6 N FAMILY RANDY MANIPULAT CHIROPRAC ROSS TX T SPINAL 3-4 REGIONS CHIROPRAC 53406 JAQUELIN LONG TIC 6 N FAMILY DARRON MANIPULAT CHIROPRAC ROSS TX T SPINAL 3-4 REGIONS CHIROPRAC 58789 JAQUELIN LONG TIC 6 N FAMILY DARRON MANIPULAT CHIROPRAC ROSS TX T SPINAL 3-4 REGIONS COMPREHEN 23421 [facility] CL[facility]OS SIVE 6 [facility] METABOLIC INC INC PANEL LIPID 76331 HYACINTH HYACINTH PANEL 6 [facility] INC INC COLLECTIO 82002 HYACINTH GARCIAON N VENOUS 6 [facility] [place] [address] HYACIN[facility] CL[facility] THYROID 6 [facility] STIMULATI INC INC NG HORMONE TSH CHIROPRAC 75165 JAQUELIN VILLEGAS TIC 6 N FAMILY RANDY MANIPULAT CHIROPRAC ROSS TX T SPINAL 3-4 REGIONS CHIROPRAC 27072 JAQUELIN VILLEGAS TIC 6 N FAMILY RANDY MANIPULAT CHIROPRAC ROSS TX T SPINAL 3-4 REGIONS HEMOGLOBI 28302 [place] AMJAD SOB N 6 DIABETIC GLYCOSYLA CENTER, ASUNCION A1C P CHIROPRAC 33841 JAQUELIN VILLEGAS TIC 6 N FAMILY RANDY MANIPULAT CHIROPRAC ROSS TX T SPINAL 3-4 REGIONS CHIROPRAC 96860 JAQUELIN VILLEGAS TIC 6 N FAMILY RANDY MANIPULAT CHIROPRAC ROSS TX T SPINAL 3-4 REGIONS CHIROPRAC 49718 JAQUELIN VILLEGAS TIC 6 N FAMILY RANDY MANIPULAT CHIROPRAC ROSS TX T SPINAL 3-4 REGIONS CHIROPRAC 56989 JAQUELIN LONG TIC 6 N FAMILY DARRON MANIPULAT CHIROPRAC ROSS TX T SPINAL 3-4 REGIONS HEMOGLOBI 44782 [place] AMJAD SOB N 6 DIABETIC GLYCOS[facility]LA CENTER, ASUNCION A1C P CHIROPRAC 18515 JAQUELIN VILLEGAS TIC 6 N FAMILY RANDY MANIPULAT CHIROPRAC ROSS TX T SPINAL 3-4 REGIONS CHIROPRAC 98871 JAQUELIN VILLEGAS TIC 6 N FAMILY RANDY MANIPULAT CHIROPRAC ROSS TX T SPINAL 3-4 REGIONS CHIROPRAC 60089 JAQUELIN VILLEGAS TIC 6 N FAMILY RANDY MANIPULAT CHIROPRAC ROSS TX T SPINAL 3-4 REGIONS CHIROPRAC 56954 JAQUELIN VILLEGAS TIC 6 N FAMILY RANDY MANIPULAT CHIROPRAC ROSS TX T SPINAL 3-4 REGIONS 94145 [facility] LARA TRANSVAGI 6 PHYSICIAN DANIKA NAL S GROUP CHIROPRAC 67110 JAQUELIN LONG TIC 6 N FAMILY DARRON MANIPULAT CHIROPRAC ROSS TX T SPINAL 3-4 REGIONS CHIROPRAC 70163 JAQUELIN VILLEGAS TIC 6 N FAMILY RANDY MANIPULAT CHIROPRAC ROSS TX T SPINAL 3-4 REGIONS CHIROPRAC 08484 JAQUELIN LONG TIC 6 N FAMILY DARRON MANIPULAT CHIROPRAC ROSS TX T SPINAL 3-4 REGIONS CHIROPRAC 27729 JAQUELIN VILLEGAS TIC 6 N FAMILY RANDY MANIPULAT CHIROPRAC ROSS TX T SPINAL 3-4 REGIONS CHIROPRAC 80675 JAQUELIN VILLEGAS TIC 6 N FAMILY RANDY MANIPULAT CHIROPRAC ROSS [place] T SPINAL 3-[place] [address] [facility] LARA TRANSVAGI 6 PHYSICIAN DANIKA NAL S GROUP RADIOLOGI 52850 [place] [facility] EXAM 6 MEDICAL EDIS CHEST 2 IMAGING VIEWS ASS FRONTAL&L ATERAL ECG 12882 HYACINTH MARTINEZ ROUTINE 6 [facility] W/LEAST P 12 LDS I&R ONLY URNLS DIP 92857 [facility] LARA 6 PHYSICIAN DANIKA STICK/TAB S GROUP LET RGNT NON-AUTO W/O MICRSCP HEMOGLOBI 04190 [place] AMJAD SOB N 6 DIABETIC GLYCOSYLA [place], ASUNCION A1C P RADEX 79391 [place] [facility] FOOT 5 MEDICAL ROCIO COMPLETE IMAGING MINIMUM 3 ASS VIEWS SURGICAL L3260 ADV[facility]ED ADVANCED BOOT/SHOE 5 TECHNOLOG TECHNOLOG EACH IES INC IES INC CHIROPRAC 74898 JAQUELIN VILLEGAS TIC 5 N FAMILY RANDY MANIPULAT CHIROPRAC ROSS TX T SPINAL 1-2 REGIONS HEMOGLOBI 33085 [place] AMJAD SOB N 5 DIAB[facility]IC GL[facility] CENTER, ASUNCION A1C P INJECTION J2405 [facility] 5 [facility] ONDANSETR INC INC ON HCL PER 1 MG GLUC BLD 66682 HYAC[facility] GLUC MNTR 5 [facility] DEV INC INC CLEARED FDA SPEC HOME USE ECG 89648 HYACINTH JAVIER JR ROUTINE 5 [facility] W/LEAST P 12 LDS I&[place] [address] [facility], [place] SURG 5 [facility] PATHOLOGY GROSS&ANNA ROSCOPIC EXAM TX MISSED 48202 HYACINTH CLAROS 5 [facility] FIRST INC INC TRIMESTER SURGICAL ANESTHESI 06058 [facility] FERRO MAKENZIE A 5 ANESTH INCOMPLET OF THE E/[place] [address] HYACINTH CLAROS INFUSION 5 [facility] THERAPY INC [place] [address] HYACINTH HYACINTH INFUSION 5 [facility] THERAPY/P INC INC ROPHYLAXI S /DX 1ST TO 1 HR THERAPEUT 52146 HYACINTH CLAROS IC 5 [facility] INJECTION INC INC IV PUSH EACH NEW DRUG ECG 64038 HYACINTH CLAROS ROUTINE 5 [facility] ECG INC INC W/LEAST 12 LDS TRCG ONLY W/O I&R US PREG 10590 [facility] MILES UTERUS 5 MEDICAL EDIS REAL TIME IMAGING W/IMAGE ASS DCMTN TRANSVAG DETERMINA 09731 [facility] 5 GRE GRE REFRACTIV E STATE OPHTH 81496 [facility] 5 GRE GRE XM&EVAL COMPRHNSV ESTAB PT 1/> URNLS DIP 29832 HYACINTH HYACINTH 5 [facility] STICK/TAB INC INC LET REAGENT AUTO MICROSCOP Y BLOOD 40190 HYACIN[facility] CL[facility]OS COUNT 5 [facility] COMPLETE INC INC AUTO&AUTO DIFRNTL WBC COMPREHEN 20460 HYACIN[facility] CLAROS SIVE 5 [facility] METABOLIC INC INC PANEL OBSTETRIC 69854 HYACINTH CLAROS PANEL 5 [facility] INC INC INF AGT G0432 HYACINTH CLAROS AB DETECT 5 [facility] EIA TECH INC INC HIV-1&/HI V-2 SCR COLLECTIO 49406 HYACINTH CLAROS N VENOUS 5 [facility] BLOOD INC INC VENIPUNCT URE US PREG 48670 [facility] LARA UTERUS 5 PHYSICIAN DANIKA REAL TIME S GROUP W/IMAGE DCMTN TRANSVAG IADNA 48226 HYACINTH CLAROS NEISSERIA 5 [facility] INC INC GONORRHOE AE AMPLIFIED PROBE TQ IADNA 44413 HY[facility] CHLAMYDIA 5 [facility] INC INC TRACHOMAT IS AMPLIFIED PROBE TQ RADEX 21446 MATEO HAZELSO FOOT 5 FOOT & N SHABNAM COMPLETE ANKLE CE MINIMUM 3 VIEWS HEMOGLOBI 25363 MATEO CRUZTSINGE N 5 DIABETIC R TAR GLYCOSYLA CENTER ASUNCION A1C RADEX 54328 [facility] MEDICAL ROCIO COMPLETE IMAGING MINIMUM [place] [address] [facility], PICKLESIM SURG 5 LLC ER JR SUMIT PATHOLOGY GROSS&ANNA ROSCOPIC EXAM COLSC FLX 68745 [facility] MIKAYLA 5 PHYSICIAN CAM W/REMOVAL S GROUP LESION BY HOT BX FORCEPS CHIROPRAC 27779 JAQUELIN VILLEGAS TIC 5 N FAMILY RANDY MANIPULAT CHIROPRAC ROSS TX T SPINAL 1-[address] [place] [address] [facility] ABDOMEN & 5 MEDICAL ROCIO PELVIS IMAGING W/O ASS CONTRAST MATERIAL URNLS DIP 47693 [facility] LYNETTE 5 PHYSICIAN MARGOTH STICK/TAB S GROUP LET RGNT NON-AUTO W/O MICRSCP CYTP C/V 54192 [facility], [facility] AUTO THIN 5 LLC ER JR SUMIT LYR PREPJ SCR MNL RESCR PHYS IADNA 73728 [facility], [facility] NEISSERIA 5 LLC ER JR SUMIT GONORRHOE AE AMPLIFIED PROBE TQ IADNA 77408 [facility], [facility] CHLAMYDIA 5 LLC ER JR SUMIT TRACHOMAT IS AMPLIFIED PROBE TQ COLLECTIO 73472 HYACIN[facility] CLAROS N VENOUS 5 [facility] BLOOD INC INC VENIPUNCT URE GONADOTRO 58634 HYACINTH CLAROS PIN 5 [facility] [place] [address] [facility] ABDOMEN & 5 MEDICAL ROCIO PELVIS IMAGING W/O ASS CONTRAST MATERIAL CHIROPRAC 87660 JAQUELIN VILLEGAS TIC 5 N FAMILY RANDY MANIPULAT CHIROPRAC ROSS TX T SPINAL 1-2 REGIONS COLLECTIO 10711 HYACINTH CLAROS N VENOUS 5 [facility] BLOOD INC INC VENIPUNCT URE LIPID 18075 HYACINTH CLAROS PANEL 5 [facility] INC INC FOR DIAB A5512 MATEO AMJAD SOB ONLY MX 5 DIABETIC DNSITY CENTER, INSRT DIR P FORMD PRFAB EA HEMOGLOBI 87504 MATEO AMJAD SOB N 5 DIABETIC GL[facility]COS[facility]LA CENTER, ASUNCION A1C P DIAB ONLY A5500 MATEO COBIAN SOB FIT CSTM 5 DIABETIC PREP&SPL CENTER, SHOE MX P DNSITY INSRT INJECTION J1040 [facility] JEANINE 5 PHYSICIAN ANNA METHYLPRE S GROUP DNISOLONE ACETATE 80 MG THERAPEUT 64957 [facility] JEANINE IC 5 PHYSICIAN ANNA PROPHYLAC S GROUP TIC/DX INJECTION SUBQ/IM COLLECTIO 26254 MATEO COBIAN SOB N VENOUS 5 DIABETIC BLOOD CENTER VENIPUNCT URE CHIROPRAC 32249 JAQUELIN VILLEGAS TIC 5 N FAMILY RANDY MANIPULAT CHIROPRAC ROSS TX T SPINAL 1-2 REGIONS THERAPEUT 10362 JAQUELIN VILLEGAS IC PX 1/> 5 N FAMILY RANDY AREAS CHIROPRAC EACH 15 T MIN EXERCISES CHIROPRAC 00061 JAQUELIN VILLEGAS TIC 5 N FAMILY RANDY MANIPULAT CHIROPRAC ROSS TX T SPINAL 1-2 REGIONS APPL 19875 JAQUELIN VILLEGAS MODALITY 5 N FAMILY RANDY 1/> AREAS CHIROPRAC TRACTION T MECHANICA L CHIROPRAC 95763 JAQUELIN VILLEGAS TIC 5 N FAMILY RANDY MANIPULAT CHIROPRAC RSOS TX T SPINAL 1-2 REGIONS THERAPEUT 65431 JAQUELIN VILLEGAS IC PX 1/> 5 N FAMILY RANDY AREAS CHIROPRAC EACH 15 T MIN EXERCISES COMPUTER- 95853 HYACINTH CL[facility]OS AIDED 5 [facility] DETECTION INC INC SCREENING MAMMOGRAP HY SCREENING G0202 [facility]OS 5 [facility] MAMMOGRAP INC INC HY CHIRAG INCL CAD WHEN PERFORMD APPL 71791 JAQUELIN VILLEGAS MODALITY 5 N FAMILY RANDY 1/> AREAS CHIROPRAC ELEC T STIMJ EA 15 MIN THERAPEUT 22093 JAQUELIN VILLEGAS IC PX 1/> 5 N FAMILY RANDY AREAS CHIROPRAC EACH 15 T MIN EXERCISES CHIROPRAC 48955 JAQUELIN VILLEGAS TIC 5 N FAMILY RANDY MANIPULAT CHIROPRAC ROSS TX T SPINAL 1-2 REGIONS HEMOGLOBI 87826 [facility] N 5 [facility] ASUNCION A1C COMPREHEN 73080 [facility] SIVE 5 [facility] PANEL CHIROPRAC 48222 JAQUELIN VILLEGAS TIC 5 N FAMILY RANDY MANIPULAT CHIROPRAC ROSS TX T SPINAL 1-2 REGIONS THERAPEUT 04282 JAQUELIN VILLEGAS IC PX 1/> 5 N FAMILY RANDY AREAS CHIROPRAC EACH 15 [place] [address] [facility] MARCO TRANSVAGI 4 PHYSICIAN DANIKA [facility] S GROUP NERVE 86698 [facility] CONDUCTIO 4 NEUROLOGY AYAD N STUDIES 11-12 CONSULTAN STUDIES T NEEDLE 08559 [facility] EMG EA 4 NEUROLOGY AYAD EXTREMTY W/PARASPI CONSULTAN NL AREA T COMPLETE SMR PRIM 13251 [facility] MARCO SRC WET [address] [facility] S GROUP NFCT AGT MRI 26218 CENTRAL JONES TRA SPINAL 4 [place] CANAL ORTHOPAED LUMBAR ICS PLC W/O CONTRAST MATERIAL RADIOLOGI 51067 [facility] C EXAM 4 MEDICAL ROCIO CHEST 2 IMAGING VIEWS ASS FRONTAL&L ATERAL RADEX 44048 JONES TRA JONES TRA SPINE 4 LUMBOSACR AL 2/3 VIEWS CHIROPRAC 83099 BAKARI BAKARI TIC 4 RANDY RANDY MANIPULAT ROSS TX SPINAL 3-4 REGIONS THERAPEUT 80028 BAKARI BAKARI IC PX 1/> 4 RANDY RANDY AREAS EACH 15 MIN EXERCISES CHIROPRAC 95923 BAKARI BAKARI TIC 4 RANDY RANDY MANIPULAT ROSS TX SPINAL 3-4 REGIONS APPL 44227 BAKARI BAKARI MODALITY 4 RANDY RANDY 1/> AREAS TRACTION MECHANICA L THERAPEUT 72219 BAKARI BAKARI IC PX 1/> 4 RANDY RANDY AREAS EACH 15 MIN EXERCISES THERAPEUT 86365 BAKARI BAKARI IC PX 1/> 4 RANDY RANDY AREAS EACH 15 MIN EXERCISES CHIROPRAC 57737 BAKARI BAKARI TIC 4 RANDY RANDY MANIPULAT ROSS TX SPINAL 3-4 REGIONS CHIROPRAC 25136 BAKARI BAKARI TIC 4 RANDY RANDY MANIPULAT ROSS TX SPINAL 3-4 REGIONS THERAPEUT 68349 BAKARI BAKARI IC PX 1/> 4 RANDY RANDY AREAS EACH 15 MIN EXERCISES RADEX 48944 [place] RICHARDSO FOOT 4 FOOT & N SHABNAM COMPLETE ANKLE CE MINIMUM 3 VIEWS CHIROPRAC 26307 BAKARI BAKARI TIC 4 RANDY RANDY MANIPULAT ROSS TX SPINAL 3-4 REGIONS THERAPEUT 42029 BAKARI BAKARI IC PX 1/> 4 RANDY RANDY AREAS EACH 15 MIN EXERCISES THERAPEUT 97392 BAKARI BAKARI IC PX 1/> 4 RANDY RANDY AREAS EACH 15 MIN EXERCISES CHIROPRAC 40454 BAKARI BAKRAI TIC 4 RANDY RANDY MANIPULAT ROSS TX SPINAL 3-4 REGIONS CHIROPRAC 41109 BAKARI BAKARI TIC 4 RANDY RANDY MANIPULAT ROSS TX SPINAL 3-4 REGIONS THERAPEUT 71861 BAKARI BAKARI IC PX 1/> 4 RANDY RANDY ARE[place] [address] [place] [address] [facility] ABDOMEN & 4 MEDICAL EDIS PELVIS IMAGING W/O ASS CONTRAST MATERIAL CHIROPRAC 33233 BAKARI BAKARI TIC 4 RANDY RANDY MANIPULAT ROSS TX SPINAL 3-4 REGIONS THERAPEUT 24147 [place]I [place]AK[place] P[place] 1/> 4 RANDY RANDY AREAS EACH 15 MIN EXERCISES THERAPEUT 06808 BAKARI BAKARI IC PX 1/> 4 RANDY RANDY AREAS EACH 15 MIN EXERCISES CHIROPRAC 30561 BAKARI BAKARI TIC 4 RANDY RANDY MANIPULAT ROSS TX SPINAL 3-4 REGIONS CHIROPRAC 86236 BAKARI BAKARI TIC 4 RANDY RANDY MANIPULAT ROSS TX SPINAL 3-4 REGIONS THERAPEUT 24894 BAKARI [place]AKARI [place] PX 1/> 4 RANDY RANDY AREAS EACH 15 MIN EXERCISES THERAPEUT 21893 [place]AKARI [place] P[place] 1/> 4 RANDY RANDY AREAS EACH 15 MIN EXERCISES CHIROPRAC 27646 BAKARI BAKARI TIC 4 RANDY RANDY MANIPULAT ROSS TX SPINAL 3-4 REGIONS CHIROPRAC 39293 BAKARI BAKARI TIC 4 RANDY RANDY MANIPULAT ROSS TX SPINAL 3-4 REGIONS THERAPEUT 60883 BAKARI BAKARI IC PX 1/> 4 RANDY RANDY AREAS EACH 15 MIN EXERCISES THERAPEUT 73701 BAKARI BAKARI [place] PX 1/> 4 RANDY RANDY AREAS EACH 15 MIN EXERCISES CHIROPRAC 64088 BAKARI BAKARI TIC 4 RANDY RANDY MANIPULAT ROSS TX SPINAL 3-4 REGIONS THERAPEUT 10154 BAKARI BAKARI IC PX 1/> 4 RANDY RANDY AREAS EACH 15 MIN EXERCISES CHIROPRAC 99411 BAKARI BAKARI TIC 4 RANDY RANDY MANIPULAT ROSS TX SPINAL 3-4 REGIONS CHIROPRAC 13209 BAKARI BAKARI TIC 4 RANDY RANDY MANIPULAT ROSS TX SPINAL 3-4 REGIONS THERAPEUT 69253 BAKARI BAKARI IC PX 1/> 4 RANDY RANDY AREAS EACH 15 MIN EXERCISES 19086 [facility] TRANSVAGI 4 DANIKA DANIKA NAL THERAPEUT 43181 BAKARI BAKARI [place] PX 1/> 4 RANDY RANDY AREAS EACH 15 MIN EXERCISES CHIROPRAC 62442 BAKARI BAKARI TIC 4 RANDY RANDY MANIPULAT ROSS TX SPINAL 3-4 REGIONS CHIROPRAC 54766 BAKARI BAKARI TIC 4 RANDY RANDY MANIPULAT ROSS TX SPINAL 3-4 REGIONS THERAPEUT 40187 BAKARI BAKARI [place] PX 1/> 4 RANDY RANDY AREAS EACH 15 MIN EXERCISES THERAPEUT 23190 BAKARI BAKARI [place] PX 1/> 4 RANDY RANDY AREAS EACH 15 MIN EXERCISES CHIROPRAC 61120 BAKARI BAKARI TIC 4 RANDY RANDY MANIPULAT ROSS TX SPINAL 3-4 REGIONS APPL 61608 BAKARI BAKARI MODALITY 4 RANDY RANDY 1/> AREAS TRACTION MECHANICA L APPL 43311 BAKARI BAKARI MODALITY 4 RANDY RANDY 1/> AREAS TRACTION MECHANICA L URINE 47275 [facility] LARA 4 DANIKA DANIKA TEST VISUAL COLOR CMPRSN METHS CHIROPRAC 22084 BAKARI BAKARI TIC 4 RANDY RANDY MANIPULAT ROSS [place] SPINAL 3-4 REGIONS GONADOTRO 30335 [facility] PIN 4 [facility] INC QUALITATI VE THERAPEUT 13713 BAKARI BAKARI IC PX 1/> 4 RANDY RANDY AREAS EACH 15 MIN EXERCISES APPL 00017 BAKARI BAKARI MODALITY 4 RANDY RANDY 1/> AREAS TRACTION MECHANICA L THERAPEUT 25917 BAKARI BAKARI IC PX 1/> 4 RANDY RANDY AREAS EACH 15 MIN EXERCISES CHIROPRAC 52286 BAKARI VILLEGAS TIC 4 RANDY RANDY MANIPULAT ROSS TX SPINAL 3-4 REGIONS CHIROPRAC 33110 BAKARI VILLEGAS TIC 4 RANDY RANDY MANIPULAT ROSS [place] SPINAL 3-4 REGIONS APPL 68434 BAKARI VILLEGAS MODALITY 4 RANDY RANDY 1/> AREAS TRACTION MECHANICA L THERAPEUT 81175 BAKARI VILLEGAS IC PX 1/> 4 RANDY RANDY AREAS EACH 15 MIN EXERCISES APPL 51988 BAKARI VILLEGAS MODALITY 4 RANDY RANDY 1/> AREAS TRACTION MECHANICA L CHIROPRAC 88389 BAKARI VILLEGAS TIC 4 RANDY RANDY MANIPULAT ROSS [place] SPINAL 3-4 REGIONS CYANOCOBA 00444 COMBINED COMBINED SCOOTER 4 PHYSICIAN PHYSICIAN VITAMIN S LA S LA B-12 25 37178 COMBINED COMBINED HYDROXY 4 PHYSICIAN PHYSICIAN INCLUDES S LA S LA FRACTIONS IF PERFORMED IRON 03771 COMBINED COMBINED BINDING 4 PHYSICIAN [place] [address] COMBINED COMBINED FREE 4 PHYSICIAN PHYSICIAN THYROXINE S LA S LA BLOOD 52618 COMBINED COMBINED COUNT 4 PHYSICIAN PHYSICIAN RETICULOC S LA S LA YTE AUTOMATED SEDIMENTA 24594 COMBINED COMBINED TION RATE 4 PHYSICIAN PHYSICIAN RBC S LA S LA NON-AUTOM ATED LIPID 30262 COMBINED COMBINED PANEL 4 PHYSICIAN PHYSICIAN S LA S LA GENERAL 95355 COMBINED COMBINED HEALTH 4 PHYSICIAN PHYSICIAN PANEL S LA S LA DETERMINA 83188 SHAUN DUNN TION 4 GRE GRE REFRACTIV E STATE OPHTH 17076 SHAUN SHAUN MEDICAL 4 GRE GRE XM&EVAL COMPRHNSV ESTAB PT 1/> IADNA 94275 PICKLESIM PICKLESIM NEISSERIA 4 ER JR SUMIT ER JR SUMIT GONORRHOE AE AMPLIFIED PROBE TQ IADNA 30870 PICKLESIM PICKLESIM CHLAMYDIA 4 ER JR SUMIT ER JR SUMIT TRACHOMAT IS AMPLIFIED PROBE TQ CYTP C/V 53811 PICKLESIM PICKLESIM AUTO THIN 4 ER JR SUMIT ER JR SUMIT LYR PREPJ SCR MNL RESCR PHYS ADMINISTR G0008 [facility] DOBSON ATION OF 4 [facility] INFLUENZA VIRUS VACCINE INFLUENZA Q2038 [facility] VACC 4 [facility] SPLIT VIRUS 3 YRS & > IM FLUZONE RADEX 55529 GINGER GINGER HAND 3 EDIS EDIS MINIMUM 3 VIEWS WRIST L3908 [facility] HAND 3 [place] [address] GINGER GINGER ABDOMEN & 3 EDIS ED[place]EL[place] [address] [facility] ABDOMINAL 3 [facility] REAL INC INC TIME W/[place] [address] MARCO LARA TRANSVAGI 3 DANIK[place] PREG 91891 [facility] ALRA UTERUS 3 DANIKA DANIKA REAL TIME W/IMAGE DCMTN TRANSVAG URINE 13143 MARCO LARA 3 DANIKA DANIKA TEST VISUAL COLOR CMPRSN METHS GONADOTRO 55299 [facility] PIN 3 [facility] CHORIONIC INC INC QUANTITAT ROSS GONADOTRO 16065 [facility] PIN 3 [facility] CHORIONIC INC INC QUANTITAT ROSS URNLS DIP 84970 [facility] 3 [facility] STICK/TAB INC INC LET REAGENT AUTO MICROSCOP Y BLOOD 02086 [facility] COUNT 3 [facility] COMPLETE INC INC AUTO&AUTO DIFRNTL WBC CULTURE 54961 [facility] RAM BACTERIAL 3 [facility] LIS INC QUANTTATI VE COLONY COUNT URINE URINE 13330 [facility] 3 [facility] TEST INC INC VISUAL COLOR CMPRSN METHS COMPREHEN 78022 [facility] SIVE 3 [facility] METABOLIC INC INC PANEL US PREG 15386 GINGER GINGER UTERUS 3 EDIS EDIS REAL TIME W/IMAGE DCMTN TRANSVAG COMPREHEN 55305 [facility] SIVE 3 [facility] METABOLIC INC INC PANEL HEMOGLOBI 37669 [facility] N 3 [facility] GLYCOSYLA INC INC ASUNCION A1C DETERMINA 09044 SHAUN RAO 3 GRE GRE REFRACTIV E STATE OPHTH 09051 [facility] 3 GRE GRE XM&EVAL COMPRHNSV ESTAB PT 1/> URNLS DIP 56880 [facility] 3 [facility] STICK/TAB INC INC LET REAGENT AUTO MICROSCOP Y URINE 29512 [facility] 3 [facility] TEST INC INC VISUAL COLOR CMPRSN METHS URNLS DIP 74972 LARA LARA 2 DANIKA DANIKA STICK/TAB LET RGNT NON-AUTO W/O MICRSCP CYTP C/V 14923 PICKLESIM PICKLESIM AUTO THIN 2 ER JR SUMIT ER JR SUMIT LYR PREPJ SCR MNL RESCR PHYS APPLICATI 98955 [facility] ON 2 [facility] MODALITY INC INC 1/> AREAS HOT/COLD PACKS THERAPEUT 00307 [facility] IC PX 1/> 2 [facility] AREAS INC INC EACH 15 MIN EXERCISES APPL 50147 [facility] MODALITY 2 [facility] 1/> AREAS INC INC ELEC STIMJ UNATTENDE D APPL 28452 [facility] MODALITY 2 [facility] 1/> AREAS INC INC ELEC STIMJ UNATTENDE D THERAPEUT 59527 [facility] IC PX 1/> 2 [facility] AREAS INC INC EACH 15 MIN EXERCISES APPLICATI 68496 [facility] ON 2 [facility] MODALITY INC INC 1/> AREAS HOT/COLD PACKS APPL 70647 [facility] MODALITY 2 [facility] 1/> AREAS INC INC ELEC STIMJ EA 15 MIN APPLICATI 75446 [facility] ON 2 [facility] MODALITY INC INC 1/> AREAS HOT/COLD PACKS THERAPEUT 55474 [facility] IC PX 1/> 2 [facility] AREAS INC INC EACH 15 MIN EXERCISES APPL 21716 [facility] MODALITY 2 [facility] 1/> AREAS INC INC ELEC STIMJ UNATTENDE D GENERAL 42737 COMBINED COMBINED HEALTH 2 PHYSICIAN PHYSICIAN PANEL S LA S LA LIPID 69450 COMBINED COMBINED PANEL 2 PHYSICIAN PHYSICIAN S LA S LA SEDIMENTA 64038 COMBINED COMBINED TION RATE 2 PHYSICIAN PHYSICIAN RBC S LA S LA [place] [address] COMBINED COMBINED THYROXINE 2 PHYSICIAN PHYSICIAN TOTAL S LA S LA THYROID 13932 COMBINED COMBINED HORM 2 PHYSICIAN PHYSICIAN UPTK/THYR S LA S LA OID HORMONE BINDING RATIO PHYSICAL 44489 [facility] THERAPY 2 [facility] EVALUAT[facility] INC INC N 59841 [place] TRANSVAGI 2 DANIKA DANIKA NAL COLLECTIO 12719 [facility] VENOUS 2 [facility] BLOOD [facility] VENIPUNCT URE GENERAL [address] HEMOGLOBI [address] [facility] 2 [facility] ASUNCION A1C ORGANIC 65881 [facility] ACID 1 2 [facility] ROSS CYANOCOBA 84649 [facility] SCOOTER 2 [facility] B-[place] [address] [facility] HOMOCYSTE [address] [facility] NRV CND 07097 GUILLEN ANTONINO GUILLEN ANTONINO AMPLT&LAT 2 ENCY EA NRV MOTOR W/F-WAVE STD NRV D 60877 GUILLEN ANTONINO GUILLEN ANTONINO AMPLITUDE 2 & LATENCY EACH NERVE SENSORY REMOVAL 13562 [facility] NON-BIODE 2 DANIKA DANIKA GRADABLE DRUG DELIVERY IMPLANT NRV CNDJ 14667 JONES TRA JONES TRA AMPLITUDE 2 & LATENCY EACH NERVE SENSORY NRV CNDJ 27886 JONES TRA JONES TRA AMPLT&LAT 2 ENCY EA NRV MOTOR W/F-WAVE STD NEEDLE 11407 JONES TRA JONES TRA EMG EA 2 EXTREMTY W/PARASPI NL AREA COMPLETE MRI 19030 JONES TRA JONES TRA SPINAL 2 CANAL CERVICAL W/O CONTRAST MATRL RADEX 90739 JONES TRA JONES TRA SPINE 2 CERVICAL 2 OR 3 VIEWS RADEX 17976 JONES TRA JONES TRA SPINE 2 THORACIC 2 VIEWS CUL BACT 68121 [facility] STOOL 2 [facility] AEROBIC INC INC ISOL SALMONELL A&SHIGELL OVA&THUAN 67579 [facility] ITES 2 [facility] DIRECT INC INC SMEARS CONCENTRA TION & [place] [address] [facility] CLOSTRIDI 2 [facility] [place] [address] [facility] GIARDIA 2 [facility] INC INC DRUG SCR G0434 [facility] NOT 2 CHROMATOG RAPHIC; ANY NUMBER PT ENC URNLS DIP 28888 [facility] 2 [facility] STICK/TAB INC INC LET REAGENT AUTO MICROSCOP Y COMPREHEN 09331 [facility] SIVE 2 [facility] METABOLIC INC INC PANEL CUL 71854 [facility] PRSMPTV 2 [facility] PTHGNC INC INC ORGANISMS SCR DNS CHART BLOOD 96947 [facility] COUNT 2 [facility] COMPLETE INC INC AUTO&[place] [address] PATHOLOGY WILFRID PAT SURG 2 & PATHOLOGY CYTOLOGY LAB GROSS&ANNA ROSCOPIC EXAM SPECIAL 54397 PATHOLOGY WILFR[facility] PAT STAIN 2 & GROUP 1 CYTOLOGY MICROORGA LAB NISMT I&R SPCL STN 94673 PATHOLOGY WILFRID PAT 2 I&R 2 & EXCPT CYTOLOGY MICROORG/ LAB ENZYME/[place] [address] [facility] INFUSION 2 [facility] THERAPY/P INC INC ROPHYLAXI S /DX 1ST TO 1 HR COLONOSCO 66411 ADEOLA ANT ADEOLA ANT PY 2 W/BIOPSY SINGLE/MU LTIPLE COLSC FLX 54692 ADEOLA ANT ADEOLA ANT W/RMVL 2 OF [place] [address] [facility] LIPASE 2 [place] [address] [facility] INFUSION 2 [facility] THERAPY INC INC PROPHYLAX IS/DX EA HOUR ANES 51769 [facility] LOWER 2 ANESTH INTESTINE OF THE [place] [address] [facility] AMYLASE 2 [facility] INC INC URINE 03168 [facility] 2 [facility] TEST INC INC VISUAL COLOR CMPRSN METHS EGD 13704 [facility] TRANSORAL 2 [facility] BIOPSY INC INC SINGLE/[place] [address] [facility] ABDOMEN & 2 [facility] PELVIS INC INC W/[place] [address] [facility] ABDOMEN & 2 [facility] PELVIS INC INC W/O CONTRAST MATERIAL URNLS DIP 42850 OAKES OAKES 2 LC LC STICK/TAB LET RGNT NON-AUTO W/O MICRSCP DRUG SCR G0434 [facility] ABDI NOT 1 CHROMATOG RAPHIC; ANY NUMBER PT ENC RADIOLOGI 68886 [facility] C EXAM 1 [facility] CHEST 2 INC INC VIEWS FRONTAL&L ATERAL PRESSURIZ 88209 [facility] ED/NONPRE 1 [facility] SSURIZED INC INC INHALATIO N TREATMENT INJECTION 05958 [facility] BRAVO HAM 1 SINGLE/ML T TRIGGER POINT 3/> MUSCLES FLUOR 54297 [facility] NEEDLE/CA 1 TH SPINE/PAR ASPINAL DX/THER ADDON NJX 17865 [facility] BRAVO HAM DX/THER 1 SBST EPIDURAL/ SUBARACH LUMBAR/SA CRAL OPHTH 22411 JIMMIE SCIFRES MEDICAL 1 VISION ANG XM&EVAL COMPRE NEW PT 1/> VST MRI 64379 NEURODIAG TALANOW SPINAL 1 NOSTICPSC ROL CANAL LUMBAR W/O CONTRAST MATERIAL RADEX 03772 CENTRAL JARVIS SPINE 1 [place] LC LUMBOSACR ORTHOPAED AL 2/3 [facility] VIEWS PRESSURIZ 62149 [facility] ED/NONPRE 1 [facility] SSURIZED INC INC INHALATIO N TREATMENT US BREAST 74882 PAYAL MILES REAL 1 MEDICAL EDIS TIME IMAGING W/[place] [address] [facility] INFUSION 1 [facility] THERAPY INC INC PROPHYLAX IS/DX EA HOUR ANES 25256 [facility] HYSTEROSC 1 ANESTH ADRIANA OPY&/HYST OF THE EROSALPIN BLUE GOGRAP[place] W/[place] [address] CHIPPS KIRK ANNA SURG 1 KIAH & PATHOLOGY DUBILIER GROSS&ANNA ROSCOPIC EXAM HYSTEROSC 01479 [facility] OPY BX 1 [facility]ALTH [facility] ENDOMETRI CLINIC OF UM&/POLYP [place] C W/WO D&C HYSTEROSC 6812 [facility] OPY 1 [facility] INC INC OTHER 6909 [facility] DILATION 1 [facility] AND INC INC CURETTAGE OF UTERUS GONADOTRO 19682 [facility] PIN 1 [facility] CHORIONIC INC INC QUALITATI VE BLOOD 61641 [facility] COUNT 1 [facility] COMPLETE INC INC AUTO&[place] [address] [facility] TRANSVAGI 1 HEALTH D[facility]IKA NAL CLINIC OF [place] IADNA 54688 PATHOLOGY PATHOLOGY NEISSERIA 0 & & CYTOLOGY CYTOLOGY GONORRHOE LAB LAB AE AMPLIFIED PROBE TQ CYTP C/V 51583 PATHOLOGY PATHOLOGY AUTO THIN 0 & & LYR CYTOLOGY CYTOLOGY PREPJ SCR LAB LAB MNL RESCR PHYS IADNA 34889 PATHOLOGY PATHOLOGY CHLAMYDIA 0 & & CYTOLOGY CYTOLOGY TRACHOMAT LAB LAB IS AMPLIFIED PROBE TQ ETONOGEST J7307 [facility] REL 0 [facility] CNTRACPT CLINIC OF IMPL SYS [place] INCL IMPL & SPL INSERTION 37180 [facility] 0 [facility]ALTH DAINKA IMPLANTAB CLINIC OF LE [place] CONTRACEP TIVE CAPSULES URINE 32232 [facility] 0 [facility] TEST CLINIC OF VISUAL [place] COLOR CMPRSN METHS URINE 96307 [facility] 0 [facility] TEST INC INC VISUAL COLOR CMPRSN METHS RADIOLOGI 93164 [facility] C EXAM 0 [facility] CHEST 2 INC INC VIEWS FRONTAL&L ATERAL LEVONORGE J7302 [facility], STREL-RLS 9 [facility] E CLINIC OF INTRAUTER N HÉCTOR CNTRACPT PLLC 52 MG INSERTION 11735 [facility], 9 [facility] INTRAUTER CLINIC OF INE DEVICE [place] IUD PLLC URINE 84615 [facility], 9 [facility] TEST CLINIC OF VISUAL COLOR [place] CMPRSN PLLC METHS COMPREHEN 04969 HYACINTH HYACINTH SIVE 9 MEM [facility] HOSP METABOLIC INC INC PANEL CYTP C/V 37271 PATHOLOGY PATHOLOGY AUTO THIN 9 & & LYR CYTOLOGY CYTOLOGY PREPJ SCR LAB LAB MNL RESCR PHYS BLOOD 86611 HYACINTH HYACINTH COUNT 9 [facility] HOSP COMPLETE INC INC AUTO&AUTO DIFRNTL [facility] 90810 [facility], DISCHARGE 9 [facility] MANAGEMEN S T 30 MIN/< SUBQ [address] PER ASSOCIATE DAY E/M S NORMAL CIRCUMCIS 09243 [facility] 9 [facility] W/CLAMP/O [facility] DEV S W/BLOCK SUBQ [address] PER ASSOCIATE DAY E/M S NORMAL LOW 741 [facility] CERVICAL 9 [facility] HOSP INC INC SECTION 1ST 32646 [facility]JIMBO 9 [facility] [place] [address] KING CARIAS, DELIVERY 9 ARETHA HERNANDEZ ANESTHESI 61328 [facility] MCDANIEL, A 9 ANESTH ABELINO F OF THE DELIVERY [place] ONLY 69438 [facility], DELIVERY 9 [facility] CL[facility] OF W/POSTPAR IVAN CARE [place] [facility] 70163 [facility], BIOPHYSIC 9 [facility] AL CLINIC OF PROFILE W/[place] [address] [facility], 9 [facility] J UTERUS CLINIC OF LIMITED 1/> [place] FETUSES [facility] DOPPLER 01019 [facility], VELOCIMET 9 [facility] J RY CLINIC OF UMBILICAL ARTERY [place] [facility] DOPPLER 19332 [facility], VELOCIMET 9 [facility] UMBILICAL ARTERY [place] PLL[facility] 73113 [facility], BIOPHYSIC 9 [facility] J AL CLINIC OF PROFILE W/O [place] NON-STRES [place] PREG 75561 [facility], UTERUS 9 [facility] J REAL TIME CLINIC OF F/U TRNSABDL [place] PER FETUS PLLC 00174 [facility], BIOPHYSIC 9 [facility] J AL CLINIC OF PROFILE W/[place] [address] [facility], 9 [facility] J UTERUS CLINIC OF LIMITED 1/> [place] FETUSES PLL[facility] DOPPLER 01261 [facility], VELOCIMET 9 [facility] R[facility] OF UMBILICAL ARTERY [place] PLL[facility] DOPPLER 57630 [facility], VELOCIMET 9 [facility] UMBILICAL ARTERY [place] PLLC 20498 [facility], BIOPHYSIC 9 [facility] J AL CLINIC OF PROFILE W/O [place] NON-STRES [place] 57508 [facility], UTERUS 9 [facility] J REAL TIME CLINIC OF F/U TRNSABDL [place] PER FETUS PLLC FIBRIN 01455 [facility] DGRADJ 9 [facility] PRODUCTS INC INC D-DIMER QUAL/SEMI LACI FIBRINOGE 01062 [facility] N 9 [facility] ACTIVITY INC INC PROTHROMB 17014 [facility] IN TIME 9 [facility] INC INC BASIC 81878 [facility] METABOLIC 9 [facility] PANEL INC INC CALCIUM TOTAL BLOOD 36041 [facility] COUNT 9 [facility] COMPLETE INC INC AUTO&[place] [address] [facility] BLOOD/URI 9 [facility] C ACID INC INC THROMBOPL 54847 [facility] ASTIN 9 [facility] TIME INC INC PARTIAL PLASMA/WH OLE BLOOD TRANSFERA 00110 [facility] SE 9 [facility] ASPARTATE INC INC AMINO AST SGOT TRANSFERA 03885 [facility] SE 9 [facility] ALANINE INC INC AMINO ALT SGPT 14886 [facility] NONSTRESS 9 [facility] TEST INC INC URNLS DIP 00422 [facility] 9 [facility] STICK/TAB INC INC LET REAGENT AUTO MICROSCOP Y OBSERVATI 25046 KING CARIAS, ON/INPATI 9 ARETHA [facility] 55 MINUTES BLD GLU A4253 [facility] TEST/REAG 9 PHARMACY PHARMACY T STRIPS #591 #591 HOME BLD GLU MON-50 DOPPLER 02019 [facility], VELOCIMET 9 [facility] J RY CLINIC OF UMBILICAL ARTERY [place] [facility] 02410 [facility], BIOPHYSIC 9 [facility] Lott [place] CLINIC OF PROFILE W/O [place] NON-STRES [facility] [place] P[place] 27563 [facility], UTERUS 9 [facility] J REAL TIME CLINIC OF F/U TRNSABDL [place] PER FETUS [facility] US PREG 97655 [facility], UTERUS 9 [facility] J REAL TIME CLINIC OF F/U TRNSABDL [place] PER FETUS [facility] 11949 [facility], BIOPHYSIC 9 [facility] J AL CLINIC OF PROFILE W/O [place] NON-STRES [facility] S TESTING CUL BACT 73884 COMBINED COMBINED XCPT 9 PHYSICIAN PHYSICIAN URINE S LAB S LAB BLOOD/STO OL AEROBIC ISOL DOPPLER 43397 [facility], VELOCIMET 9 [facility] J R[facility] OF UMBILICAL ARTERY [place] [facility] DOPPLER 43839 [facility], VELOCIMET 9 [facility] J R[facility] OF UMBILICAL ARTERY [place] [facility] US PREG 78620 [facility], UTERUS 9 [facility] J REAL TIME CLINIC OF F/U TRNSABDL [place] PER FETUS [facility] 03649 [facility], BIOPHYSIC 9 [facility] J AL CLINIC OF PROFILE W/O [place] NON-STRES [facility] [place] 25864 KRAFT, UTERUS 9 FADI R REAL TIME DIAGNOSTI F/U CCENTER TRNSABDL PER FETUS CUL BACT 25616 COMBINED COMBINED XCPT 9 PHYSICIAN PHYSICIAN URINE S LAB S LAB BLOOD/STO OL AEROBIC ISOL ANTIBODY 23706 COMBINED COMBINED CHLAMYDIA 9 PHYSICIAN PHYSICIAN S LAB S LAB US PREG 07428 CENTRAL CENTRAL UTERUS 9 EVANGELICAL EVANGELICAL REAL TIME HOSP HOSP F/U TRNSABDL PER FETUS RADIOLOGI 76366 Imer GARNER 9 NATIONAL DANIEL S EXAMINATI CORPORATI ON CHEST ON SINGLE VIEW FRONTAL 99629 [facility], NONSTRESS 9 [facility] J TEST CLINIC OF [place] [facility] 70983 [facility], NONSTRESS 9 [facility] J TEST CLINIC OF [place] [facility] URNLS DIP 68279 [facility] 9 [facility] STICK/TAB INC INC LET REAGENT [place]CROSCOP [place] PREG 26545 CENTRAL CENTRAL UTERUS 9 EVANGELICAL EVANGELICAL REAL TIME HOSP HOSP F/U TRNSABDL PER FETUS BLD GLU A4253 [facility] TEST/REAG 8 PHARMACY PHARMACY T STRIPS #591 #591 HOME BLD GLU MON-50 US PREG 91393 MEET, UTERUS 8 SHANELLE W/DETAIL DIAGNOSTI A CCENTER ANISH 1ST GESTATION DIAB G0109 CENTRAL CENTRAL SELF-MGMT 8 EVANGELICAL EVANGELICAL TRN [facility] HOSP GROUP SESSION PER 30 [place] [address] [facility] OF [facility] OF ESTRIOL 8 [facility] GONADOTRO 51956 [facility] LABONE OF PIN 8 [facility] INC CHORIONIC QUANTITAT ROSS URNLS DIP 21651 DHS/CO HYACIN[facility] [address] [place] [address] HEALTH STICK/TAB CENTRAL CENTER LET RGNT BANK ACCT NON-AUTO W/O MICRSCP ALPHA-FET 96865 LAB[facility] OF LABONE OF OPROTEIN 8 [facility] INC SERUM URNLS DIP 77148 DHS/CO HYAC[facility] [address] [place] [address] STICK/TAB CENTRAL CENTER LET RGNT BANK ACCT NON-AUTO W/O MICRSCP GLUC BLD 95706 [facility] GLUC MNTR [address] [place] [address] DEV [facility] CLEARED BANK ACCT FDA SPEC HOME USE CYTP 49490 DHS/[facility] CERV/VAG [address] [place] [address] AUTO THIN LOWNDES CENTER LAYER BANK ACCT PREP MNL SCREEN ANTIBODY 90684 [facility]ONE OF SCREEN 8 [facility] [place] INC RBC EACH SERUM TECHNIQUE BLOOD 44145 [facility] OF TYPING 8 [facility] INC SEROLOGIC ABO BLOOD 42965 [facility] OF TYPING 8 [facility] INC SEROLOGIC RH (D) ANTIBODY 87054 DHS/LA HY[facility]TH RUBELLA [address] [place] [address] CENTER BANK ACCT IADNA 94146 [facility] NEISSERIA [address] [place] [address] GONORRHOE BANK ACCT AE AMPLIFIED PROBE TQ SYPHILIS 14485 [facility]/LA HYACINTH TEST [address] [place] [address] NON-TREPO [facility] NEMAL BANK ACCT ANTIBODY QUAL COLLECTIO 06448 [facility] N VENOUS [address] [place] [address] BLOOD [facility] [place] B[place] [address] DHS/[facility] HEPATITIS [address] [place] [address] B [facility] SURFACE BANK ACCT ANTIGEN IADNA 67752 [facility] CHLAMYDIA [address] [place] [address] TRACHOMAT BANK ACCT IS AMPLIFIED PROBE TQ GONADOTRO 94294 [facility] PIN 8 [facility] CHORIONIC INC INC QUANTITAT ROSS URNLS DIP 17712 [facility] 8 [facility] STICK/TAB INC INC LET REAGENT AUTO MICROSCOP Y BLOOD 67337 [facility] COUNT 8 [facility] COMPLETE INC INC AUTO&AUTO DIFRNTL WBC CULTURE 85583 [facility] BACTERIAL 8 [facility] INC INC QUANTTATI VE COLONY COUNT URINE US PREG 98259 [facility] UTERUS 8 [facility] REAL TIME INC INC W/IMAGE DCMTN TRANSVAG US PREG 70016 [facility] UTERUS 8 [facility] REAL TIME INC INC W/IMAGE DCMTN TRANSVAG CULTURE 99485 [facility] BACTERIAL 8 [facility] INC INC QUANTTATI VE COLONY COUNT URINE BLOOD 44951 [facility] COUNT 8 [facility] COMPLETE INC INC AUTO&AUTO DIFRNTL WBC URNLS DIP 39659 [facility] 8 [facility] STICK/TAB INC INC LET REAGENT AUTO MICROSCOP Y COMPREHEN 49440 [facility] SIVE 8 [facility] METABOLIC INC INC PANEL URINE 50696 [facility] 8 [facility] TEST INC INC [place] [address] [facility] AMYLASE 8 [place] [address] [facility] LIPASE 8 [facility] INC INC APPLICATI 93.54 Camilla Martin MD SPLINT Encounters Encounter Start End Date Code Location Performer Type Date OFFICE 95099 [facility] CO[facility]PAT[facility] 7 7 DIABETIC T VISIT CENTER, 25 P MINUTES OFFICE 29089 JAQUELIN VILLEGAS OUTPATIEN 7 7 N FAMILY T VISIT CHIROPRAC 10 T MINUTES OFFICE 05328 [facility]PATI[facility] 6 6 DIABETIC T VISIT CENTER, 15 P MINUTES HOSPITAL [facility] - 6 6 [facility] OUTPATIEN INC T OFFICE 65628 [facility]A DOBSON [facility]PATIEN 6 6 [facility] 15 MINUTES OFFICE 22707 [facility] JEANINE OUTPATIEN 6 6 PHYSICIAN T VISIT S GROUP 25 MINUTES OFFICE 10102 OLYA DOBSON OUTPATIEN 6 6 [facility] T VISIT 15 MINUTES OFFICE 26239 MATEO MUHAMMADLeticia OUTPATIEN 6 6 DIABETIC T VISIT CENTER, 25 P MINUTES OFFICE 03782 OLYA DOBSON OUTPATIEN 6 6 [facility] T VISIT 15 MINUTES OFFICE 75349 OLYA DOBSON OUTPATIEN 6 6 [facility] T VISIT 15 MIN[facility]ES HOSPITAL HYACINTH - 6 6 [facility] OUTPATIEN INC T OFFICE 83109 OLYA DOBSON OUTPATIEN 6 6 [facility] T VISIT 15 MINUTES OFFICE 75408 MATEO AMJAD SOB OUTPATIEN 6 6 DIABETIC T VISIT CENTER, 25 P MINUTES OFFICE 54690 MATEO AMJAD SOB OUTPATIEN 6 6 DIABETIC T VISIT 5 CENTER, MINUTES P OFFICE 14733 LEODANSAMRARoman VILLEGAS OUTPATIEN 6 6 N FAMILY RANDY T VISIT CHIROPRAC 10 T MINUTES OFFICE 35798 OLYA DOBSON OUTPATIEN 6 6 [facility] T VISIT 15 MINUTES OFFICE 07814 [facility] LARA OUTPATIEN 6 6 PHYSICIAN DANIKA T VISIT S GROUP 15 MINUTES OFFICE 66504 OLYA DOBSON OUTPATIEN 6 6 [facility] T VISIT 15 MINUTES OFFICE 21591 MATEO AMJAD SOB OUTPATIEN 6 6 DIABETIC T VISIT CENTER, 15 P MINUTES EMERGENCY 60259 JUSTINA SANCHEZ 5 5 PHYSICIAN DEPARTMEN S, PLLC T VISIT HIGH/URGE NT SEVERITY OFFICE 52655 OLYA DOBSON OUTPATIEN 5 5 [facility] T VISIT 15 MINUTES OFFICE 65424 JAQUELIN VILLEGAS OUTPATIEN 5 5 N FAMILY RANDY T VISIT CHIROPRAC 10 T MINUTES OFFICE 22743 MATEO WOLF OUTPATIEN 5 5 DIABETIC T VISIT CENTER, 25 P MINUTES OFFICE 43232 [facility] MARCO OUTPATIEN 5 5 PHYSICIAN DANIKA T VISIT S GROUP 15 MINUTES EMERGENCY 77442 JUSTINA [facility] 5 5 PHYSICIAN [facility]ELA [facility] T VISIT MODERATE SEVERITY HOSPITAL HYACIN[facility] - 5 5 [facility] OUTPATIEN INC T EMERGENCY 42297 [facility] 5 5 [facility] V[facility]/M [facility] HAYCINTH - 5 5 [facility] OUTPATIEN INC T HOSPITAL HYACIN[facility] - 5 5 [facility] OUTPATIEN INC T HOSPITAL HYACINTH - 5 5 [facility] OUTPATIEN INC T EMERGENCY 88429 JUSTINA BOWMAN 5 5 PHYSICIAN ANNA [facility] T VISIT HIGH/URGE NT SEVERITY EMERGENCY 70356 [facility] 5 5 [facility] MODERATE SEVERITY [facility] - 5 5 [facility] OUTPATIEN INC T HOSPITAL HYACINTH - 5 5 [facility] OUTPATIEN INC T OFFICE 84317 MATEO PEDROZA OUTPATIEN 5 5 FOOT & N SHABNAM T VISIT ANKLE CE 15 MINUTES OFFICE 40255 OLYA DOBSON OUTPATIEN 5 5 [facility] T VISIT 15 MINUTES OFFICE 07610 MATEO FOY OUTPATIEN 5 5 DIABETIC R TAR T VISIT CENTER 25 MINUTES EMERGENCY 86663 JUSTINA JEANINE 5 5 PHYSICIAN ANNA DEPARTMEN S, PLLC T VISIT MODERATE SEVERITY OFFICE 89298 [facility] SCHULSTAD OUTPATIEN 5 5 PHYSICIAN CAM T VISIT S GROUP 10 MINUTES HOSPITAL HYACINTH - 5 5 [facility] OUTPATIEN INC T OFFICE 27773 [facility] OJEDA OUTPATIEN 5 5 PHYSICIAN MARGOTH T VISIT S GROUP 15 MINUTES OFFICE 39280 [facility] SCHULSTAD OUTPATIEN 5 5 PHYSICIAN CAM T VISIT S GROUP 15 MINUTES EMERGENCY 01730 JUSTINA JEANINE 5 5 PHYSICIAN ANNA DEPARTMEN S, PLLC T VISIT HIGH/URGE NT SEVERITY OFFICE 49971 [facility] OJEDA OUTPATIEN 5 5 PHYSICIAN MARGOTH T VISIT S GROUP 15 MINUTES OFFICE 29542 [facility] OJEDA OUTPATIEN 5 5 PHYSICIAN MARGOTH T NEW 20 S GROUP MINUTES HOSPITAL [facility]ACINTH - 5 5 [facility] T EMERGENCY 80085 JUSTINA MARKSN 5 5 PHYSICIAN LINARES DEPARTMEN S, PLLC T VISIT HIGH/URGE NT SEVERITY HOSPITAL [facility]ACIN[facility] - 5 5 [facility] T OFFICE 91813 OLYA DOBSON OUTPATIEN 5 5 [facility] T V[facility] 15 MINUTES OFFICE 28488 MATEO MUHAMMADD SOB OUTPATIEN 5 5 DIABETIC T VISIT BRADFORD, 25 P MINUTES OFFICE 49858 [facility] FRYMAN OUTPATIEN 5 5 PHYSICIAN EUG T VISIT S GROUP 10 MINUTES OFFICE 96123 [facility] JEANINE OUTPATIEN 5 5 PHYSICIAN ANNA T VISIT S GROUP 15 MINUTES OFFICE 23231 HYACIN[facility] PAIZ OUTPATIEN 5 5 [facility] 15 MINUTES OFFICE 79525 MATEO WOLF OUTPATIEN 5 5 DIABETIC T VISIT CENTER [address]ES [address] PEDROZA OUTPATIEN 5 5 DANIEL Willams N SHABNAM T VISIT MIRTA 15 DPM PSC MINUTES OFFICE 27871 OLYA DOBSON OUTPATIEN 5 5 [facility]UTES [facility]OSP[facility] HYACINTH - 5 5 [facility] INC T OFFICE 55015 [facility] OUTPATIEN 5 5 HEALTH AYAD T VISIT MEDICAL 40 GROUP MINUTES HOSPITAL CENTRAL - 5 5 [facility] OUTPATIEN HOSP T OFFICE 83956 LEODANRoman BAKARI OUTPATIEN 5 5 N FAMILY RANDY T VISIT CHIROPRAC 10 T MINUTES OFFICE 24881 [facility] LARA OUTPATIEN 4 4 PHYSICIAN DANIKA T VISIT S GROUP 15 MINUTES OFFICE 01736 OLYA PAL 4 4 [facility] T VISIT 15 MINUTES OFFICE 65510 [facility]ENTRAL JONES TRA OUTPATIEN 4 4 [place] T VISIT ORTHOPAED 15 [facility]CS PLC MINUTES OFFICE 31170 [facility] CONSULTAT 4 4 NEUROLOGY AYAD ION NEW/ESTAB CONSULTAN PATIENT T 60 MIN OFFICE 96958 [facility] OUTPATIEN 4 4 PHYSICIAN T VISIT S GROUP 25 MINUTES OFFICE 74581 OLYA PAL 4 4 [facility] T VISIT 15 MINUTES OFFICE 78616 [facility]ENTR[facility] JONES TRA OUTPATIEN 4 4 [place] T VISIT ORTHOPAED 15 [facility] MINUTES OFFICE 04264 OLYA PAL 4 4 [facility] T VISIT 15 MINUTES EMERGENCY 68800 [facility] 4 4 TRUDI DEPARTMEN EMERGENCY T VISIT PHYS HIGH/URGE NT SEVERITY OFFICE 39168 MATEO PEDROZA OUTPATIEN 4 4 FOOT & N SHABNAM T VISIT ANKLE CE 15 MINUTES OFFICE 88013 JONES TRA JONES TRA OUTPATIEN 4 4 T VISIT 15 MINUTES OFFICE 60000 MATEO PEDROZA OUTPATIEN 4 4 FOOT & N SHABNAM T NEW 30 ANKLE CE MINUTES OFFICE 28003 OLYA PAL 4 4 [facility] T VISIT 15 MINUTES OFFICE 62126 BAKARI PAL 4 4 RANDY RANDY T VISIT 10 MINUTES EMERGENCY 12997 JEANINE BOWMAN 4 4 ANNA ANNA DEPARTMEN T VISIT HIGH/URGE NT SEVERITY OFFICE 85498 OLYA PAL 4 4 [facility] T VISIT 15 MINUTES OFFICE 18387 BAKARI PAL 4 4 RANDY RANDY T VISIT 10 MINUTES OFFICE 58985 BAKARI PAL 4 4 RANDY RANDY T VISIT 10 MINUTES OFFICE 37986 MARCO PAL 4 4 DANIKA DANIKA T VISIT 15 MINUTES HOSPITAL HYACINTH - 4 4 [facility] OUTPATIEN INC T OFFICE 94602 BAKARI PAL 4 4 RANDY RANDY T NEW 30 MINUTES OFFICE 12831 OLYA PAL 4 4 [facility] T VISIT 15 MINUTES OFFICE 68593 OLYA PAL 4 4 [facility] T VISIT 15 MINUTES OFFICE 74227 OLYA PAL 4 4 [facility] T VISIT 15 MINUTES PERIODIC 72409 MARCO LARA PREVENTIV 4 4 DANIKA DANIKA E MED EST PATIENT 18-39 YRS OFFICE 80637 OLYA PAL 3 3 [facility] T VISIT 15 MINUTES Emergency LILY Brooks MD (ER) 3 19:56 3 21:05 [facility] EMERGENCY 73249 [facility] NESBITT 3 3 DEPARTMEN T VISIT MODERATE SEVERITY OFFICE 53796 ADEOLA ANT ADEOLA ANT OUTPATIEN 3 3 T VISIT 15 MINUTES OFFICE 41007 OLYA DOBSON OUTPATIEN 3 3 [facility] T VISIT 15 MINUTES Emergency LILY Bowman MD (ER) 3 21:55 3 23:44 [facility] EMERGENCY 48904 JEANINE BOWMAN 3 3 ANNA NANA DEPARTMEN T VISIT HIGH/URGE NT SEVERITY HOSPITAL HYACINTH - 3 3 [facility] T OFFICE 30819 ADEOLA ANT ADEOLA ANT OUTPATIEN 3 3 T VISIT 25 MINUTES OFFICE 08056 WILMER MUÑIZ OUTPATIEN 3 3 T VISIT 25 MINUTES HOSPITAL HYACINTH - 3 3 [facility] OUTPATIEN INC T Emergency LILY Escobar (ER) 3 11:33 3 15:32 [facility] EMERGENCY 59096 LUZ ESCOBAR DEPT 3 3 [facility] FIDE VISIT HIGH SEVERITY& THREAT [facility] HYACINTH - 3 3 [facility] OUTPATIEN INC T EMERGENCY 96196 HYACINTH 3 3 [facility] DEPARTMEN INC T VISIT MODERATE SEVERITY OFFICE 75219 OLYA DOBSON OUTPATIEN 3 3 [facility] T VISIT 15 MINUTES OFFICE 28882 [facility] DOBSON [facility]PATIEN 3 3 [facility] 15 MINUTES OFFICE 02054 WILMER MUÑIZ OUTPATIEN 3 3 T VISIT 15 MINUTES [facility] T OFFICE 52160 [facility] ANT ADEOLA ANT OUTPATIEN 3 3 T VISIT 25 MINUTES [facility] T EMERGENCY 58414 SHAUN RASHID DEPT 3 3 EMERGENCY FIDE VISIT SERVICES HIGH SEVERITY& THREAT FUN EMERGENCY 43874 [facility] 3 3 [facility] T VISIT LOW/MODER SEVERITY OFFICE 10905 [facility] GUILLEN ANTONINO OUTPATIEN 2 2 T VISIT 15 MINUTES OFFICE 42845 [facility]LY[facility] DOBSON OUTPATIEN 2 2 [facility] 15 MINUTES OFFICE 16985 OLYA DOBSON OUTPATIEN 2 2 [facility] T [facility]ISIT 15 MINUTES OFFICE 37614 [facility]DE[facility] MIR ANT OUTPATIEN 2 2 T VISIT 15 MINUTES PERIODIC 70658 [facility] PREVENTIV 2 2 DANIKA DANIKA E MED EST PATIENT 18-39 YRS OFFICE 95196 [facility] 2 2 LTH SLEEP T VISIT AND REHA 10 MINUTES [facility] T OFFICE 18491 OLYA DOBSON OUTPATIEN 2 2 [facility]IS[facility] 15 MINUTES OFFICE 53303 [facility] GUILLEN ANTONINO OUTPATIEN 2 2 T VISIT 25 MINUTES [facility] - [facility] 2 [facility] T OFFICE 59274 [facility]ARA OUTPATIEN 2 2 DANIKA DANIKA T VISIT 15 MINUTES OFFICE 78872 OLYA DOBSON OUTPATIEN 2 2 [facility] T [facility] 15 MINUTES OFFICE 55023 [facility] HILARIO II OUTPATIEN 2 2 LT SLEEP VINCENT T NEW 30 AND REHA MINUTES OFFICE 42894 OLYA DOBSON OUTPATIEN 2 2 [facility] 15 MINUTES OFFICE 03144 [facility] LARA OUTPATIEN 2 2 DANIKA DANIKA T VISIT 25 MINUTES OFFICE 19386 [facility] MUÑIZ OUTPATIEN 2 2 T NEW 45 MINUTES [facility]OSP[facility] - 2 2 [facility] T OFFICE 74729 ADEOLA ANT ADEOLA ANT OUTPATIEN 2 2 T VISIT 25 MINUTES OFFICE 77750 [facility]PATI[facility] 2 2 T NEW [address] [facility] LANI CONSULTAT 2 2 ION NEW/ESTAB PATIENT 40 MIN OFFICE 21738 JONES TRA JONES TRA OUTPATIEN 2 2 T VISIT 15 MINUTES OFFICE 30531 JONES TRA JONES TRA OUTPATIEN 2 2 T VISIT 10 MINUTES OFFICE 03150 JONES TRA JONES TRA OUTPATIEN 2 2 T VISIT 15 MINUTES OFFICE 41190 OLYA DOBSON OUTPATIEN 2 2 [facility] - 2 2 [facility] INC T OFFICE 39779 ADE[facility]A ANT ADEOLA ANT OUTPATIEN 2 2 T VISIT 25 MINUTES OFFICE 21385 [facility] OUTPATIEN 2 2 T VISIT 15 MINUTES OFFICE 79033 [facility] OUTPATIEN 2 2 T VISIT 15 MINUTES EMERGENCY 32468 SHUAN HOLLAND DEPT 2 2 EMERGENCY VISIT SERVICES HIGH SEVERITY& THREAT FUN EMERGENCY 28014 [facility] 2 2 [facility] DE[facility] T VISIT MODERATE SEVERITY [facility]OSP[facility] - 2 2 [facility] T OFFICE 44966 [facility] ANT ADEOLA ANT OUTPATIEN 2 2 T NEW 45 MINUTES OFFICE 56446 JEANINE BOWMAN OUTPATIEN 2 2 ANNA ANNA T NEW 20 MINUTES OFFICE 00391 [facility] ABDI OUTPATIEN 2 2 T VISIT 15 MINUTES [facility]OSP[facility] - [facility] 2 [facility] T OFFICE 98699 [facility] OUTPATIEN [address] [facility] 10 HOSPITAL MINUTES P OFFICE 45934 OLYA DOBSON OUTPATIEN 1 1 [facility] T VISIT 15 MINUTES OFFICE 25985 [facility] OUTPATIEN 1 1 T VISIT 15 MINUTES OFFICE 24323 [facility] OUTPATIEN 1 1 T VISIT 15 MINUTES EMERGENCY 41491 LIANG MARGOTH LIANG MARGOTH 1 1 DEPARTMEN T VISIT HIGH/URGE NT SEVERITY EMERGENCY 25737 [facility] 1 1 [facility] T VISIT MODERATE SEVERITY [facility]OSPITAL [facility] - 1 1 [facility] OUTPAT[facility] INC T OFFICE 22995 [facility] OUTPATIEN 1 1 T VISIT 15 MINUTES OFFICE 54367 [facility] OUTPATIEN 1 1 T VISIT 15 MINUTES OFFICE 88826 [facility] OUTPATIEN 1 1 T VISIT 15 MINUTES OFFICE 85137 [facility] OUTPATIEN 1 1 T VISIT 15 MINUTES OFFICE 06641 OLYA DOBSON OUTPATIEN 1 1 [facility] T VISIT 15 MINUTES OFFICE 87751 [facility] OUTPATI[facility] 1 1 [place] [facility] T VISIT [facility]THOPAED 15 [facility] MINUTES OFFICE 46469 [facility] CONSULTAT 1 1 [place] [facility] ION ORTHOPAED NEW/ESTAB [facility] PATIENT 40 MIN [facility]OSPITAL [facility] - 1 1 [facility] OUTPATIEN [facility] T EMERGENCY 19458 [facility] MODERATE SEVERITY EMERGENCY 81656 SHAUN PEREYRA 1 1 EMERGENCY ANNA DEPARTMEN SERVICES T VISIT HIGH/URGE NT SEVERITY OFFICE 64355 [facility] 1 1 [facility] T VISIT CLINIC OF 15 [facility] MINUTES [facility]OSPITAL [facility] - 1 1 [facility]PAT[facility] HYACINTH [facility] 1 1 [facility] OUTPATIEN [facility] EMERGENCY 00970 [facility] 1 1 [facility] T VISIT LOW/MODER SEVERITY EMERGENCY 74170 SHAUN ESCOBAR 1 1 [facility] HIGH/URGE NT SEVERITY OFFICE 96093 [facility] 1 1 HEALTH DANIKA T VISIT CLINIC OF 15 [place] MINUTES [facility] HYACINTH - 1 1 [facility] HYACINTH - 1 1 [facility] OUTPATIEN [facility] T OFFICE 80882 OLYA DOBSON OUTPATIEN 1 1 [facility] T NEW 30 MINUTES OFFICE 84456 [facility] 1 1 [facility] T VISIT CLINIC OF 15 [place] MINUTES [facility] 40643 [facility] PREVENTIV 0 0 HEALTH DANIKA E MED EST CLINIC OF PATIENT ROLAND 18-39 YRS EMERGENCY 24438 SHAUN ESCOBAR 0 0 EMERGENCY III, DEPARTMEN SERVICES ABELINO T VISIT HIGH/URGE ASSOCIATE NT S SEVERITY EMERGENCY 66751 [facility] 0 0 [facility] T VISIT LOW/MODER SEVERITY HOSPITAL [facility] - 0 0 [facility] OUTPATIEN [facility] T OFFICE 20273 [facility], OUTPATIEN 9 9 HEALTH TASHA J T VISIT CLINIC OF 15 MINUTES [facility] EMERGENCY 23710 SHAUN HERNANDEZ, 9 9 EMERGENCY [facility] T VISIT HIGH/URGE ASSOCIATE NT S [facility]ACINTH - 9 9 [facility] EMERGENCY 45823 [facility] 9 9 [facility] T VISIT LIMITED/M INOR [facility] HYACINTH - 9 9 [facility] OFFICE 88109 [facility] 9 9 [facility] J T VISIT CLINIC OF 25 MINUTES [facility] OFFICE 94112 [facility], OUTPATIEN 9 9 [facility] J T VISIT CLINIC OF 15 MINUTES [facility] HYACINTH - 9 9 [facility] HYACIN[facility] - 9 9 [facility] - 9 9 [facility] - 9 9 [facility] T OFFICE 88832 [facility] OUTPATI[facility] 9 9 [facility] J T VISIT CLINIC OF 15 MINUTES [facility] OFFICE 98630 [facility], OUTPATIEN 9 9 [facility] J T VISIT CLINIC OF 15 MINUTES [facility] OFFICE 47991 MEET, CONSULTAT 9 9 SHANELLE ION DIAGNOSTI A NEW/ESTAB CCENTER PATIENT 15 MIN [facility] - 9 9 [facility] T OFFICE 96260 ARIADNA ROSENTHAL OUTPATIEN 9 9 JR, Kaylie Mariscal JR, Kaylie Mariscal T VISIT 15 MINUTES [facility]OSP[facility] - 9 9 [facility] INC T EMERGENCY 29655 ANGELA BOWMAN, 9 9 [facility]ATIONAL DANIEL S [facility] T VISIT ON MODERATE SEVERITY OFFICE 75735 [facility], OUTPATIEN 9 9 [facility]ALTH [facility]HA Lott T VISIT CLINIC OF 15 MINUTES [facility] HYACIN[facility] - 9 9 [facility] INC T OFFICE 38000 [facility], OUTPATIEN 9 9 [facility] Lott T VISIT CLINIC OF 15 MINUTES [facility] HYACINTH - 9 9 [facility] OUTPATIEN INC T OFFICE 48951 WOMENCoyS MARCO, OUTPATIEN 9 9 [facility] Lott T VISIT CLINIC OF 15 MINUTES [facility] - 9 9 [facility] OUTPATIEN INC T EMERGENCY 81782 [facility] 9 9 [facility] DEPARTMEN INC T VISIT LIMITED/M INOR PROB EMERGENCY 47290 ANGELA RESENDEZ, 9 9 [facility] JYOTI E [facility] T VISIT ON HIGH/URGE NT SEVERITY [facility] - 9 9 [facility] T OFFICE 78398 ARIADNA ROSENTHAL OUTPATIEN 8 8 JR, Kaylie V , J V T VISIT 15 MINUTES HOSPITAL [facility] - 8 8 [facility] T EMERGENCY 23618 [facility] 8 8 [facility] DEPARTMEN INC T VISIT LIMITED/M INOR [facility] - 8 8 [facility] T OFFICE 77508 [facility] OUT[facility] 8 8 [facility] T VISIT [facility] 10 BANK ACCT MINUTES OFFICE 91470 [facility] OUTPATIEN 8 8 [facility] T NEW 30 [facility] MINUTES BANK [facility] HY[facility] - 8 8 [facility] OUTPATIEN INC T EMERGENCY 72310 [facility] 8 8 [facility] DEPARTMEN INC T VISIT MODERATE SEVERITY EMERGENCY 94698 [facility] 8 8 [facility]URGE NT SEVERITY [facility] - 8 8 [facility] OUTPATI[facility] INC T
--- OUTSIDE RECORDS SUMMARY | 2016-06-18 14:06 | External Medical Summary Rpt ---
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 T SPINAL 3-4 REGIONS HEMOGLOBI 11273 [place] AMJAD SOB N 6 DIABETIC GLYCOSYLA CENTER, ASUNCION A1C P CHIROPRAC 90345 JAQUELIN VILLEGAS TIC 6 N FAMILY RANDY MANIPULAT CHIROPRAC ROSS TX T SPINAL 3-4 REGIONS CHIROPRAC 36263 JAQUELIN VILLEGAS TIC 6 N FAMILY RANDY MANIPULAT CHIROPRAC ROSS TX T SPINAL 3-4 REGIONS CHIROPRAC 32093 JAQUELIN VILLEGAS TIC 6 N FAMILY RANDY MANIPULAT CHIROPRAC ROSS TX T SPINAL 3-4 REGIONS CHIROPRAC 27090 JAQUELIN LONG TIC 6 N FAMILY DARRON MANIPULAT CHIROPRAC ROSS TX T SPINAL 3-4 REGIONS HEMOGLOBI 74845 [place] AMJAD SOB N 6 [facility] CENTER, ASUNCION A1C P CHIROPRAC 27762 JAQUELIN VILLEGAS TIC 6 N FAMILY RANDY MANIPULAT CHIROPRAC ROSS TX T SPINAL 3-4 REGIONS CHIROPRAC 95019 JAQUELIN VILLEGAS TIC 6 N FAMILY RANDY MANIPULAT CHIROPRAC ROSS TX T SPINAL 3-4 REGIONS CHIROPRAC 04370 JAQUELIN VILLEGAS TIC 6 N FAMILY RANDY MANIPULAT CHIROPRAC ROSS TX T SPINAL 3-4 REGIONS CHIROPRAC 95893 JAQUELIN VILLEGAS TIC 6 N FAMILY RANDY MANIPULAT CHIROPRAC ROSS TX T SPINAL 3-4 REGIONS 94745 [facility] LARA TRANSVAGI 6 PHYSICIAN DANIKA NAL S GROUP CHIROPRAC 12863 JAQUELIN LONG TIC 6 N FAMILY DARRON MANIPULAT CHIROPRAC ROSS TX T SPINAL 3-4 REGIONS CHIROPRAC 95579 JAQUELIN VILLEGAS TIC 6 N FAMILY RANDY MANIPULAT CHIROPRAC ROSS TX T SPINAL 3-4 REGIONS CHIROPRAC 88543 JAQUELIN LONG TIC 6 N FAMILY DARRON MANIPULAT CHIROPRAC ROSS TX T SPINAL 3-4 REGIONS CHIROPRAC 88121 JAQUELIN VILLEGAS TIC 6 N FAMILY RANDY MANIPULAT CHIROPRAC ROSS TX T SPINAL 3-4 REGIONS CHIROPRAC 08771 JAQUELIN VILLEGAS TIC 6 N FAMILY RANDY MANIPULAT CHIROPRAC ROSS [place] T SPINAL 3-4 [place] [address] [facility] LARA TRANSVAGI 6 PHYSICIAN DANIKA NAL S GROUP RADIOLOGI 64073 [place] [facility] EXAM 6 MEDICAL EDIS CHEST 2 IMAGING VIEWS ASS FRONTAL&L ATERAL ECG 11882 HYACINTH MARTINEZ ROUTINE 6 [facility] W/LEAST P 12 LDS I&R ONLY URNLS DIP 94413 [facility] LARA 6 PHYSICIAN DANIKA STICK/TAB S GROUP LET RGNT NON-AUTO W/O MICRSCP HEMOGLOBI 39030 [place] AMJAD SOB N 6 DIABETIC GLYCOSYLA [place], ASUNCION A1C P RADEX 98476 [place] BEINE[facility] FOOT 5 MEDICAL ROCIO COMPLETE IMAGING MINIMUM 3 ASS VIEWS SURGICAL L3260 ADVANCED ADVANCED BOOT/SHOE 5 TECHNOLOG TECHNOLOG EACH IES INC IES INC CHIROPRAC 67717 JAQUELIN VILLEGAS TIC 5 N FAMILY RANDY MANIPULAT CHIROPRAC ROSS TX T SPINAL 1-2 REGIONS HEMOGLOBI 01398 [place] AMJAD SOB N 5 DIABETIC GLYCOSYLA CENTER, ASUNCION A1C P INJECTION J2405 [facility] 5 [facility] ONDANSETR INC INC ON HCL PER 1 MG GLUC BLD 03793 HYACINTH CLAROS GLUC MNTR 5 [facility] DEV INC INC CLEARED FDA SPEC HOME USE ECG 88849 HYACINTH JAVIER JR ROUTINE 5 [facility] W/LEAST P 12 LDS I&[place] [address] [facility], [place] SURG 5 [facility] PATHOLOGY GROSS&ANNA ROSCOPIC EXAM [place] MISSED 95211 HYACINTH CLAROS 5 [facility] INC INC TRIMESTER SURGICAL ANESTHESI 03712 [facility] FERRO MAKENZIE A 5 ANESTH INCOMPLET OF THE E/[place] [address] HYACINTH CLAROS INFUSION 5 [facility] THERAPY INC [place] [address] HYACINTH HYACINTH INFUSION 5 [facility] THERAPY/P INC INC ROPHYLAXI S /DX 1ST TO 1 HR THERAPEUT 29996 HYACINTH CLAROS IC 5 [facility] INJECTION INC INC IV PUSH EACH NEW DRUG ECG 10317 HYACINTH CLAROS ROUTINE 5 [facility] ECG INC INC W/LEAST 12 LDS TRCG ONLY W/O I&R US PREG 88530 [facility] UTERUS 5 MEDICAL EDIS REAL TIME IMAGING W/IMAGE ASS DCMTN TRANSVAG DETERMINA 23764 SHAUN [facility] 5 GRE GRE REFRACTIV E STATE OPHTH 83191 [facility] 5 GRE GRE XM&EVAL COMPRHNSV ESTAB PT 1/> URNLS DIP 24647 HYACINTH HYACINTH 5 [facility] STICK/TAB INC INC LET REAGENT AUTO MICROSCOP Y BLOOD 94314 HYACINTH CL[facility]OS COUNT 5 [facility] COMPLETE INC INC AUTO&AUTO DIFRNTL WBC COMPREHEN 51595 HYACINTH CL[facility]OS SIVE 5 [facility] METABOLIC INC INC PANEL OBSTETRIC 44868 HYACINTH CLAROS PANEL 5 [facility] INC INC INF AGT G0432 HYACINTH CLAROS AB DETECT 5 [facility] EIA TECH INC INC HIV-1&/HI V-2 SCR COLLECTIO 70053 HYACINTH CLAROS N VENOUS 5 [facility] BLOOD INC INC VENIPUNCT URE US PREG 65479 [facility] LARA UTERUS 5 PHYSICIAN DANIKA REAL TIME S GROUP W/IMAGE DCMTN TRANSVAG IADNA 49920 HYACINTH CLAROS NEISSERIA 5 [facility] INC INC GONORRHOE AE AMPLIFIED PROBE TQ IADNA 23698 HYACINTH CLAROS CHLAMYDIA 5 [facility] INC INC TRACHOMAT IS AMPLIFIED PROBE TQ RADEX 57819 MATEO HAZELSO FOOT 5 FOOT & N SHABNAM COMPLETE ANKLE CE MINIMUM 3 VIEWS HEMOGLOBI 70044 MATEO CRUZTSINGE N 5 DIABETIC R TAR GLYCOSYLA CENTER ASUNCION A1C RADEX 97739 [place] [facility] 5 MEDICAL ROCIO COMPLETE IMAGING MINIMUM [place] [address] [facility], PICKLESIM SURG 5 LLC ER JR SUMIT PATHOLOGY GROSS&ANNA ROSCOPIC EXAM COLSC FLX 45670 [facility] MIKAYLA 5 PHYSICIAN CAM W/REMOVAL S GROUP LESION BY HOT BX FORCEPS CHIROPRAC 11231 JAQUELIN VILLEGAS TIC 5 N FAMILY RANDY MANIPULAT CHIROPRAC ROSS TX T SPINAL 1-[address] [place] [address] [facility] ABDOMEN & 5 MEDICAL ORCIO PELVIS IMAGING W/O ASS CONTRAST MATERIAL URNLS DIP 38243 [facility] LYNETTE 5 PHYSICIAN MARGOTH STICK/TAB S GROUP LET RGNT NON-AUTO W/O MICRSCP CYTP C/V 19368 [facility], [facility] AUTO THIN 5 LLC ER JR SUMIT LYR PREPJ SCR MNL RESCR PHYS IADNA 66712 [facility], [facility] NEISSERIA 5 LLC ER JR SUMIT GONORRHOE AE AMPLIFIED PROBE TQ IADNA 79879 [facility], [facility] CHLAMYDIA 5 LLC ER JR SUMIT TRACHOMAT IS AMPLIFIED PROBE TQ COLLECTIO 92165 HYACINTH CLAROS N VENOUS 5 [facility] BLOOD INC INC VENIPUNCT URE GONADOTRO 29202 HYACINTH CLAROS PIN 5 [facility] [place] [address] [facility] ABDOMEN & 5 MEDICAL ROCIO PELVIS IMAGING W/O ASS CONTRAST MATERIAL CHIROPRAC 27128 JAQUELIN VILLEGAS TIC 5 N FAMILY RANDY MANIPULAT CHIROPRAC ROSS TX T SPINAL 1-2 REGIONS COLLECTIO 94373 HYACINTH CLAROS N VENOUS 5 [facility] BLOOD INC INC VENIPUNCT URE LIPID 21695 HYACINTH CLAROS PANEL 5 [facility] INC INC FOR DIAB A5512 MATEO AMJAD SOB ONLY MX 5 DIABETIC DNSITY CENTER, INSRT DIR P FORMD PRFAB EA HEMOGLOBI 46384 MATEO AMJAD SOB N 5 DIABETIC GLYCOSYLA CENTER, ASUNCION A1C P DIAB ONLY A5500 MATEO COBIAN SOB FIT CSTM 5 DIABETIC PREP&SPL CENTER, SHOE MX P DNSITY INSRT INJECTION J1040 [facility] JEANINE 5 PHYSICIAN ANNA METHYLPRE S GROUP DNISOLONE ACETATE 80 MG THERAPEUT 52253 [facility] JEANINE IC 5 PHYSICIAN ANNA PROPHYLAC S GROUP TIC/DX INJECTION SUBQ/IM COLLECTIO 90914 MATEO COBIAN SOB N VENOUS 5 DIABETIC BLOOD CENTER VENIPUNCT URE CHIROPRAC 02821 JAQUELIN VILLEGAS TIC 5 N FAMILY RANDY MANIPULAT CHIROPRAC ROSS TX T SPINAL 1-2 REGIONS THERAPEUT 64259 JAQUELIN VILLEGAS IC PX 1/> 5 N FAMILY RANDY AREAS CHIROPRAC EACH 15 T MIN EXERCISES CHIROPRAC 99045 JAQUELIN VILLEGAS TIC 5 N FAMILY RANDY MANIPULAT CHIROPRAC ROSS TX T SPINAL 1-2 REGIONS APPL 73253 JAQUELIN VILLEGAS MODALITY 5 N FAMILY RANDY 1/> AREAS CHIROPRAC TRACTION T MECHANICA L CHIROPRAC 60434 JAQUELIN VILLEGAS TIC 5 N FAMILY RANDY MANIPULAT CHIROPRAC ROSS TX T SPINAL 1-2 REGIONS THERAPEUT 68355 JAQUELIN VILLEGAS IC PX 1/> 5 N FAMILY RANDY AREAS CHIROPRAC EACH 15 T MIN EXERCISES COMPUTER- 07334 HYACINTH CLAROS AIDED 5 [facility] DETECTION INC INC SCREENING MAMMOGRAP HY SCREENING G0202 [facility]IN[facility]OS 5 [facility] MAMMOGRAP INC INC HY CHIRAG INCL CAD WHEN PERFORMD APPL 32216 JAQUELIN VILLEGAS MODALITY 5 N FAMILY RANDY 1/> AREAS CHIROPRAC ELEC T STIMJ EA 15 MIN THERAPEUT 15163 JAQUELIN VILLEGAS IC PX 1/> 5 N FAMILY RANDY AREAS CHIROPRAC EACH 15 T MIN EXERCISES CHIROPRAC 61559 JAQUELIN VILLEGAS TIC 5 N FAMILY RANDY MANIPULAT CHIROPRAC ROSS TX T SPINAL 1-2 REGIONS HEMOGLOBI 22065 [facility] N 5 [facility] ASUNCION A1C COMPREHEN 28529 [facility] SIVE 5 [facility] PANEL CHIROPRAC 81167 JAQUELIN VILLEGAS TIC 5 N FAMILY RANDY MANIPULAT CHIROPRAC ROSS TX T SPINAL 1-2 REGIONS THERAPEUT 81574 JAQUELIN VILLEGAS IC PX 1/> 5 N FAMILY RANDY AREAS CHIROPRAC EACH 15 [place] [address] [facility] MARCO TRANSVAGI 4 PHYSICIAN DANIKA [facility] S GROUP NERVE 72687 [facility] CONDUCTIO 4 NEUROLOGY AYAD N STUDIES 11-12 CONSULTAN STUDIES T NEEDLE 33363 [facility] EMG EA 4 NEUROLOGY AYAD EXTREMTY W/PARASPI CONSULTAN NL AREA T COMPLETE SMR PRIM 73163 [facility] MARCO SRC WET 4 PHYSICIAN DANIKA [facility] S GROUP NFCT AGT MRI 96757 CENTR[facility] JONES TRA SPINAL 4 [place] CANAL ORTHOPAED LUMBAR ICS PLC W/O CONTRAST MATERIAL RADIOLOGI 33627 [facility] C EXAM 4 MEDICAL ROCIO CHEST 2 IMAGING VIEWS ASS FRONTAL&L ATERAL RADEX 68776 JONES TRA JONES TRA SPINE 4 LUMBOSACR AL 2/3 VIEWS CHIROPRAC 74098 BAKARI BAKARI TIC 4 RANDY RANDY MANIPULAT ROSS TX SPINAL 3-4 REGIONS THERAPEUT 58479 BAKARI BAKARI IC PX 1/> 4 RANDY RANDY AREAS EACH 15 MIN EXERCISES CHIROPRAC 20926 BAKARI BAKARI TIC 4 RANDY RANDY MANIPULAT ROSS TX SPINAL 3-4 REGIONS APPL 36028 BAKARI BAKARI MODALITY 4 RANDY RANDY 1/> AREAS TRACTION MECHANICA L THERAPEUT 59775 BAKARI BAKARI IC PX 1/> 4 RANDY RANDY AREAS EACH 15 MIN EXERCISES THERAPEUT 80296 BAKARI BAKARI IC PX 1/> 4 RANDY RANDY AREAS EACH 15 MIN EXERCISES CHIROPRAC 08612 BAKARI BAKARI TIC 4 RANDY RANDY MANIPULAT ROSS TX SPINAL 3-4 REGIONS CHIROPRAC 98713 BAKARI BAKARI TIC 4 RANDY RANDY MANIPULAT ROSS TX SPINAL 3-4 REGIONS THERAPEUT 82380 BAKARI BAKARI IC PX 1/> 4 RANDY RANDY AREAS EACH 15 MIN EXERCISES RADEX 97568 [place] [facility] FOOT 4 FOOT & N SHABNAM COMPLETE ANKLE CE MINIMUM 3 VIEWS CHIROPRAC 47835 BAKARI BAKARI TIC 4 RANDY RANDY MANIPULAT ROSS TX SPINAL 3-4 REGIONS THERAPEUT 05926 BAKARI BAKARI IC PX 1/> 4 RANDY RANDY AREAS EACH 15 MIN EXERCISES THERAPEUT 05164 BAKARI BAKARI IC PX 1/> 4 RANDY RANDY AREAS EACH 15 MIN EXERCISES CHIROPRAC 31876 BAKARI BAKARI TIC 4 RANDY RANDY MANIPULAT ROSS TX SPINAL 3-4 REGIONS CHIROPRAC 69025 BAKARI BAKARI TIC 4 RANDY RANDY MANIPULAT ROSS TX SPINAL 3-4 REGIONS THERAPEUT 03490 BAKARI BAKARI IC PX 1/> 4 RANDY RANDY [place] [address] [place] [address] [facility] ABDOMEN & 4 MEDICAL EDIS PELVIS IMAGING W/O ASS CONTRAST MATERIAL CHIROPRAC 89841 BAKARI BAKARI TIC 4 RANDY RANDY MANIPULAT ROSS TX SPINAL 3-4 REGIONS THERAPEUT 76362 BAKARI BAKARI IC PX 1/> 4 RANDY RANDY AREAS EACH 15 MIN EXERCISES THERAPEUT 82140 BAKARI BAKARI IC PX 1/> 4 RANDY RANDY AREAS EACH 15 MIN EXERCISES CHIROPRAC 13216 BAKARI BAKARI TIC 4 RANDY RANDY MANIPULAT ROSS TX SPINAL 3-4 REGIONS CHIROPRAC 13934 BAKARI BAKARI TIC 4 RANDY RANDY MANIPULAT ROSS TX SPINAL 3-4 REGIONS THERAPEUT 27735 BAKARI BAKARI IC PX 1/> 4 RNADY RANDY AREAS EACH 15 MIN EXERCISES THERAPEUT 38982 BAKARI BAKARI IC PX 1/> 4 RANDY RANDY AREAS EACH 15 MIN EXERCISES CHIROPRAC 69121 BAKARI BAKARI TIC 4 RANDY RANDY MANIPULAT ROSS TX SPINAL 3-4 REGIONS CHIROPRAC 47131 BAKARI BAKARI TIC 4 RANDY RANDY MANIPULAT ROSS TX SPINAL 3-4 REGIONS THERAPEUT 11849 BAKARI BAKARI IC PX 1/> 4 RANDY RANDY AREAS EACH 15 MIN EXERCISES THERAPEUT 68585 BAKARI BAKARI IC PX 1/> 4 RANDY RANDY AREAS EACH 15 MIN EXERCISES CHIROPRAC 29880 BAKARI BAKARI TIC 4 RANDY RANDY MANIPULAT ROSS TX SPINAL 3-4 REGIONS THERAPEUT 25661 BAKARI BAKARI IC PX 1/> 4 RANDY RANDY AREAS EACH 15 MIN EXERCISES CHIROPRAC 82026 BAKARI BAKARI TIC 4 RANDY RANDY MANIPULAT ROSS TX SPINAL 3-4 REGIONS CHIROPRAC 35923 BAKARI BAKARI TIC 4 RANDY RANDY MANIPULAT ROSS TX SPINAL 3-4 REGIONS THERAPEUT 65907 BAKARI BAKARI IC PX 1/> 4 RANDY RANDY AREAS EACH 15 MIN EXERCISES 84662 [facility] TRANSVAGI 4 DANIKA DANIKA NAL THERAPEUT 93235 BAKARI BAKARI IC PX 1/> 4 RANDY RANDY AREAS EACH 15 MIN EXERCISES CHIROPRAC 92223 BAKARI BAKARI TIC 4 RANDY RANDY MANIPULAT ROSS TX SPINAL 3-4 REGIONS CHIROPRAC 98092 BAKARI BAKARI TIC 4 RANDY RANDY MANIPULAT ROSS TX SPINAL 3-4 REGIONS THERAPEUT 37805 BAKARI BAKARI IC PX 1/> 4 RANDY RANDY AREAS EACH 15 MIN EXERCISES THERAPEUT 92146 BAKARI BAKARI IC PX 1/> 4 RANDY RANDY AREAS EACH 15 MIN EXERCISES CHIROPRAC 39138 BAKARI BAKARI TIC 4 RANDY RANDY MANIPULAT ROSS TX SPINAL 3-4 REGIONS APPL 69052 BAKARI BAKARI MODALITY 4 RANDY RANDY 1/> AREAS TRACTION MECHANICA L APPL 39037 BAKARI BAKARI MODALITY 4 RANDY RANDY 1/> AREAS TRACTION MECHANICA L URINE 52359 [facility] LARA 4 DANIKA DANIKA TEST VISUAL COLOR CMPRSN METHS CHIROPRAC 76932 BAKARI BAKARI TIC 4 RANDY RANDY MANIPULAT ROSS TX SPINAL 3-4 REGIONS GONADOTRO 01300 HYACINTH CLAROS PIN 4 [facility] CHORIONIC INC INC QUALITATI VE THERAPEUT 52745 BAKARI BAKARI IC PX 1/> 4 RANDY RANDY AREAS EACH 15 MIN EXERCISES APPL 87822 BAKARI BAKARI MODALITY 4 RANDY RANDY 1/> AREAS TRACTION MECHANICA L THERAPEUT 45922 [place]I [place]AKARI [place] PX 1/> 4 RANDY RANDY AREAS EACH 15 MIN EXERCISES CHIROPRAC 78497 BAKARI VILLEGAS TIC 4 RANDY RANDY MANIPULAT ROSS TX SPINAL 3-4 REGIONS CHIROPRAC 87449 BAKARI VILLEGAS TIC 4 RANDY RANDY MANIPULAT ROSS TX SPINAL 3-4 REGIONS APPL 15752 BAKARI VILLEGAS MODALITY 4 RANDY RANDY 1/> AREAS TRACTION MECHANICA L THERAPEUT 26449 BAKARI VILLEGAS IC PX 1/> 4 RANDY RANDY AREAS EACH 15 MIN EXERCISES APPL 77165 BAKARI VILLEGAS MODALITY 4 RANDY RANDY 1/> AREAS TRACTION MECHANICA L CHIROPRAC 53250 BAKARI VILLEGAS TIC 4 RANDY RANDY MANIPULAT ROSS TX SPINAL 3-4 REGIONS CYANOCOBA 31437 COMBINED COMBINED SCOOTER 4 PHYSICIAN PHYSICIAN VITAMIN S LA S LA B-12 25 29353 COMBINED COMBINED HYDROXY 4 PHYSICIAN PHYSICIAN INCLUDES S LA S LA FRACTIONS IF PERFORMED IRON 82169 COMBINED COMBINED BINDING 4 PHYSICIAN [place] [address] COMBINED COMBINED FREE 4 PHYSICIAN PHYSICIAN THYROXINE S LA S LA BLOOD 63333 COMBINED COMBINED COUNT 4 PHYSICIAN PHYSICIAN RETICULOC S LA S LA YTE AUTOMATED SEDIMENTA 80847 COMBINED COMBINED TION RATE 4 PHYSICIAN PHYSICIAN RBC S LA S LA NON-AUTOM ATED LIPID 39577 COMBINED COMBINED PANEL 4 PHYSICIAN PHYSICIAN S LA S LA GENERAL 93873 COMBINED COMBINED HEALTH 4 PHYSICIAN PHYSICIAN PANEL S LA S LA DETERMINA 93357 SHAUN DUNN TION 4 GRE GRE REFRACTIV E STATE OPHTH 08435 SHAUN SHAUN MEDICAL 4 GRE GRE XM&EVAL COMPRHNSV ESTAB PT 1/> IADNA 21346 PICKLESIM PICKLESIM NEISSERIA 4 ER JR SUMIT ER JR SUMIT GONORRHOE AE AMPLIFIED PROBE TQ IADNA 12224 PICKLESIM PICKLESIM CHLAMYDIA 4 ER JR SUMIT ER JR SUMIT TRACHOMAT IS AMPLIFIED PROBE TQ CYTP C/V 12019 PICKLESIM PICKLESIM AUTO THIN 4 ER JR SUMIT ER JR SUMIT LYR PREPJ SCR MNL RESCR PHYS ADMINISTR G0008 OLYA DOBSON ATION OF 4 [facility] INFLUENZA VIRUS VACCINE INFLUENZA Q2038 [facility] DOBSON VACC 4 [facility] SPLIT VIRUS 3 YRS & > IM FLUZONE RADEX 61292 GINGER GINGER HAND 3 EDIS EDIS MINIMUM 3 VIEWS WRIST L3908 [facility] HAND 3 OR[place] [address] GINGER GINGER ABDOMEN & 3 EDIS EDIS [place] [address] [facility]ACIN[facility] ABDOMINAL 3 [facility] REAL [place] TIME W/[place] [address] [facility] TRANSVAGI 3 DANIKA D[place]IK[place] PREG 99793 [facility] UTERUS 3 DANIKA DANIKA REAL TIME W/IMAGE DCMTN TRANSVAG URINE 16102 [facility] LAAR 3 DANIKA DANIKA TEST VISUAL COLOR CMPRSN METHS GONADOTRO 50628 HYACINTH CL[facility]OS PIN 3 [facility] CHORIONIC INC INC QUANTITAT ROSS GONADOTRO 38847 HYACIN[facility] CL[facility] PIN 3 [facility] CHORIONIC INC INC QUANTITAT ROSS URNLS DIP 39102 HYACIN[facility] CL[facility]OS 3 [facility] STICK/TAB INC INC LET REAGENT AUTO MICROSCOP Y BLOOD 56581 [facility] COUNT 3 [facility] COMPLETE INC INC AUTO&AUTO DIFRNTL WBC CULTURE 25455 HYACINTH RAM BACTERIAL 3 [facility] LIS INC QUANTTATI VE COLONY COUNT URINE URINE 73228 [facility] CL[facility]OS 3 [facility] TEST INC INC VISUAL COLOR CMPRSN METHS COMPREHEN 31167 [facility] SIVE 3 [facility] METABOLIC INC INC PANEL US PREG 20264 GINGER GINGER UTERUS 3 EDIS EDIS REAL TIME W/IMAGE DCMTN TRANSVAG COMPREHEN 64036 [facility] SIVE 3 [facility] METABOLIC INC INC PANEL HEMOGLOBI 69718 [facility] N [facility] GLYCOSYLA INC INC ASUNCION A1C DETERMINA 59569 SHAUN RAO 3 GRE GRE REFRACTIV E STATE OPHTH [address]4515 [facility] 3 GRE GRE XM&EVAL COMPRHNSV ESTAB PT 1/> URNLS DIP 71688 [facility] STICK/TAB INC INC LET REAGENT AUTO MICROSCOP Y URINE 10383 [facility] TEST INC INC VISUAL COLOR CMPRSN METHS URNLS DIP 30633 LARA LARA 2 DANIKA DANIKA STICK/TAB LET RGNT NON-AUTO W/O MICRSCP CYTP C/V 88101 PICKLESIM PICKLESIM AUTO THIN 2 ER JR SUMIT ER JR SUMIT LYR PREPJ SCR MNL RESCR PHYS APPLICATI 38496 [facility] ON [facility] MODALITY INC INC 1/> AREAS HOT/COLD PACKS THERAPEUT 46653 [facility] IC PX 1/> 2 [facility] AREAS INC INC EACH 15 MIN EXERCISES APPL 70655 [facility] MODALITY 2 [facility] 1/> AREAS INC INC ELEC STIMJ UNATTENDE D APPL 99923 [facility] MODALITY [facility] 1/> AREAS INC INC ELEC STIMJ UNATTENDE D THERAPEUT 94142 [facility] IC PX 1/> 2 [facility] AREAS INC INC EACH 15 MIN EXERCISES APPLICATI 79736 [facility] ON [facility] MODALITY INC INC 1/> AREAS HOT/COLD PACKS APPL 52693 [facility] MODALITY 2 [facility] 1/> AREAS INC INC ELEC STIMJ EA 15 MIN APPLICATI 92340 [facility] ON [facility] MODALITY INC INC 1/> AREAS HOT/COLD PACKS THERAPEUT 63806 [facility] IC PX 1/> 2 [facility] AREAS INC INC EACH 15 MIN EXERCISES APPL 92769 [facility] MODALITY 2 [facility] 1/> AREAS INC INC ELEC STIMJ UNATTENDE D GENERAL 22180 COMBINED COMBINED HEALTH 2 PHYSICIAN PHYSICIAN PANEL S LA S LA LIPID 86796 COMBINED COMBINED PANEL 2 PHYSICIAN PHYSICIAN S LA S LA SEDIMENTA 95059 COMBINED COMBINED TION RATE 2 PHYSICIAN PHYSICIAN [place] [address] COMBINED COMBINED THYROXINE 2 PHYSICIAN PHYSICIAN TOTAL S LA S LA THYROID 45916 COMBINED COMBINED HORM 2 PHYSICIAN PHYSICIAN UPTK/THYR S LA S LA OID HORMONE BINDING RATIO PHYSICAL 61977 [facility] THERAPY 2 [facility] [place]ALUATIO INC INC N 97080 [facility] TRANSVAGI 2 DANIKA DANIKA NAL COLLECTIO 42369 [facility] VENOUS 2 [facility] BLOOD [facility] VENIPUNCT URE GENERAL [address] HEMOGLOBI 29984 [facility] 2 [facility] ASUNCION A1C ORGANIC 65109 [facility] ACID 1 2 [facility] ROSS CYANOCOBA 81378 [facility] SCOOTER 2 [facility] [address] [place] [address] [facility] HOMOCYSTE 2 [facility] NRV CND 44456 GUILLEN ANTONINO GUILLEN ANTONINO AMPLT&LAT 2 ENCY EA NRV MOTOR W/F-WAVE STD NRV D 08059 GUILLEN ANTONINO GUILLEN ANTONINO AMPLITUDE 2 & LATENCY EACH NERVE SENSORY REMOVAL 30760 [facility] NON-BIODE 2 DANIKA DANIKA GRADABLE DRUG DELIVERY IMPLANT NRV CNDJ 15783 JONES TRA JONES TRA AMPLITUDE 2 & LATENCY EACH NERVE SENSORY NRV CNDJ 09189 JONES TRA JONES TRA AMPLT&LAT 2 ENCY EA NRV MOTOR W/F-WAVE STD NEEDLE 78471 JONES TRA JONES TRA EMG EA 2 EXTREMTY W/PARASPI NL AREA COMPLETE MRI 42127 JONES TRA JONES TRA SPINAL 2 CANAL CERVICAL W/O CONTRAST MATRL RADEX 30777 JONES TRA JONES TRA SPINE 2 CERVICAL 2 OR 3 VIEWS RADEX 90584 JONES TRA JONES TRA SPINE 2 THORACIC 2 VIEWS CUL BACT 74002 [facility] STOOL 2 [facility] AEROBIC INC INC ISOL SALMONELL A&SHIGELL OVA&THUAN 03490 [facility] ITES 2 [facility] DIRECT INC INC SMEARS CONCENTRA TION & [place] [address] [facility] CLOSTRIDI 2 [facility] [place] [address] [facility] GIARDIA [facility] INC INC DRUG SCR G0434 [facility] NOT 2 CHROMATOG RAPHIC; ANY NUMBER PT ENC URNLS DIP 72623 [facility] STICK/TAB INC INC LET REAGENT AUTO MICROSCOP Y COMPREHEN 02354 [facility] SIVE 2 [facility] METABOLIC INC INC PANEL CUL 96393 [facility] PRSMPTV 2 [facility] PTHGNC INC INC ORGANISMS SCR DNS CHART BLOOD 41542 [facility] COUNT 2 [facility] COMPLETE INC INC AUTO&[place] [address] PATHOLOGY WILFRID PAT SURG 2 & PATHOLOGY CYTOLOGY LAB GROSS&ANNA ROSCOPIC EXAM SPECIAL 56426 PATHOLOGY WIFLRID PAT STAIN 2 & GROUP 1 CYTOLOGY MICROORGA LAB NISNJ I&R SPCL STN 60581 PATHOLOGY WILFRID PAT 2 I&R 2 & EXCPT CYTOLOGY MICROORG/ LAB ENZYME/[place] [address] [facility] INFUSION 2 [facility] THERAPY/P INC INC ROPHYLAXI S /DX 1ST TO 1 HR COLONOSCO 99736 ADEOLA ANT ADEOLA ANT PY 2 W/BIOPSY SINGLE/[place] [address] ADEOLA ANT ADEOLA ANT W/RMVL 2 OF [place] [address] [facility] LIPASE 2 [place] [address] [facility] INFUSION 2 [facility] THERAPY INC INC PROPHYLAX IS/DX EA HOUR ANES 05149 [facility] LOWER 2 ANESTH INTESTINE OF THE [place] [address] HYACINTH CLAROS AMYLASE 2 [facility] INC INC URINE 70459 HYACINTH CLAROS 2 [facility] TEST INC INC VISUAL [place] CMPRSN [place] E[place] 90295 HYACINTH CLAROS TRANSORAL 2 [facility] BIOPSY [place] INC SINGLE/[place] [address] HYACINTH CLAROS ABDOMEN & 2 [facility] PELVIS INC INC W/[place] [address] HYACINTH CLAROS ABDOMEN & 2 [facility] PELVIS INC INC W/O CONTRAST MATERIAL URNLS DIP 19612 OAKES OAKES 2 LC LC STICK/TAB LET RGNT NON-AUTO W/O MICRSCP DRUG SCR G0434 [facility] ABDI NOT 1 CHROMATOG RAPHIC; ANY NUMBER PT ENC RADIOLOGI 25796 HYACINTH CLAROS C EXAM 1 [facility] CHEST 2 INC INC VIEWS FRONTAL&L ATERAL PRESSURIZ 70060 HYACINTH CLAROS ED/NONPRE 1 [facility] SSURIZED INC INC INHALATIO N TREATMENT INJECTION 03417 [facility] BRAVO HAM 1 SINGLE/ML T TRIGGER POINT 3/> MUSCLES FLUOR 84081 [facility] BRAVO HAM NEEDLE/CA 1 TH SPINE/PAR ASPINAL DX/THER ADDON NJX 03239 [facility] BRAVO HAM DX/THER 1 SBST EPIDURAL/ SUBARACH LUMBAR/SA CRAL OPHTH 97252 JIMMIE SCIFRES MEDICAL 1 VISION ANG XM&EVAL COMPRE NEW PT 1/> VST MRI 90372 NEURODIAG TALANOW SPINAL 1 NOSTICPSC ROL CANAL LUMBAR W/O CONTRAST MATERIAL RADEX 99144 CENTRAL JARVIS SPINE 1 [place] LC LUMBOSACR ORTHOPAED AL 2/3 ICS PLC VIEWS PRESSURIZ 67171 HYACINTH CLAROS ED/NONPRE 1 [facility] SSURIZED INC INC INHALATIO N TREATMENT US BREAST 00429 PAYAL MILES REAL 1 MEDICAL EDIS TIME IMAGING W/[place] [address] HYACINTH CLAROS INFUSION 1 [facility] THERAPY INC INC PROPHYLAX IS/DX EA HOUR ANES 53284 [facility] HYSTEROSC 1 ANESTH ADRIANA OPY&/HYST OF THE EROSALPIN BLUE [place] [address] CHIPPS KIRK ANNA SURG 1 KIAH & PATHOLOGY DUBILIER GROSS&ANNA ROSCOPIC EXAM HYSTEROSC 58072 [facility] OPY BX 1 [facility] ENDOM[facility]RI CLINIC OF UM&/POLYP [place] C W/WO D&C HYSTEROSC 6812 HYACINTH CLAROS OPY 1 [facility] INC INC OTHER 6909 HYACINTH CLAROS DILATION 1 [facility] AND INC INC CURETTAGE OF UTERUS GONADOTRO 55028 HYACINTH CLAROS PIN 1 [facility] CHORIONIC INC INC QUALITATI VE BLOOD 69632 HYACINTH CLAROS COUNT 1 [facility] COMPLETE INC INC AUTO&[place] [address] [facility] TRANSVAGI 1 [facility] NAL CLINIC OF [place] IADNA 04968 PATHOLOGY PATHOLOGY NEISSERIA 0 & & CYTOLOGY CYTOLOGY GONORRHOE LAB LAB AE AMPLIFIED PROBE TQ CYTP C/V 32593 PATHOLOGY PATHOLOGY AUTO THIN 0 & & LYR CYTOLOGY CYTOLOGY PREPJ SCR LAB LAB MNL RESCR PHYS IADNA 28997 PATHOLOGY PATHOLOGY CHLAMYDIA 0 & & CYTOLOGY CYTOLOGY TRACHOMAT LAB LAB IS AMPLIFIED PROBE TQ ETONOGEST J7307 [facility] REL 0 [facility] CNTRACPT CLINIC OF IMPL SYS [place] INCL IMPL & SPL INSERTION 40584 [facility] 0 [facility] IMPLANTAB CLINIC OF LE [place] CONTRACEP TIVE CAPSULES URINE 75406 [facility] 0 [facility] TEST CLINIC OF VISUAL [place] COLOR CMPRSN METHS URINE 46725 HYACINTH CLAROS 0 [facility] TEST INC INC VISUAL COLOR CMPRSN METHS RADIOLOGI 09616 HYACINTH CLAROS C EXAM 0 MEM [facility] HOSP CHEST 2 INC INC VIEWS FRONTAL&L ATERAL LEVONORGE J7302 [facility], STREL-RLS 9 [facility] E CLINIC OF INTRAUTER N HÉCTOR CNTRACPT PLLC 52 MG INSERTION 16855 [facility], 9 [facility] INTRAUTER CLINIC OF INE DEVICE [place] IUD PLLC URINE 71339 [facility], 9 [facility] TEST CLINIC OF VISUAL COLOR [place] CMPRSN PLLC METHS COMPREHEN 06605 HYACINTH HYACINTH SIVE 9 MEM [facility] HOSP METABOLIC INC INC PANEL CYTP C/V 55301 PATHOLOGY PATHOLOGY AUTO THIN 9 & & LYR CYTOLOGY CYTOLOGY PREPJ SCR LAB LAB MNL RESCR PHYS BLOOD 40732 HYACINTH HYACINTH COUNT 9 MEM [facility] HOSP COMPLETE INC INC AUTO&AUTO DIFRNTL WBC HOSPITAL 99612 [facility], DISCHARGE 9 [facility] MANAGEMEN S T 30 MIN/< SUBQ [address] PER ASSOCIATE DAY E/M S NORMAL CIRCUMCIS 61003 [facility] [place] 9 [facility] W/CLAMP/O [facility] DEV S W/BLOCK SUBQ [address] PER ASSOCIATE DAY E/M S NORMAL LOW 741 HYACINHT CLAROS CERVICAL 9 [facility] HOSP INC INC SECTION 1ST 36772 [facility]JIMBO 9 [facility] [place] [address] KING CARIAS, DELIVERY 9 ARETHA HERNANDEZ ANESTHESI 58174 [facility] MCDANIEL, A 9 ANESTH ABELINO F OF THE DELIVERY [place] ONLY 18995 [facility], DELIVERY 9 [facility] OF W/POSTPAR IVAN [facility]ARE [place] PLL[facility] 00536 [facility], BIOPHYSIC 9 [facility] AL CLINIC OF PROFILE W/[place] [address] [facility], 9 [facility] J UTERUS CLINIC OF LIMITED 1/> [place] FETUSES PLLC DOPPLER 48232 [facility], VELOCIMET 9 [facility] J RY CLINIC OF UMBILICAL ARTERY [place] PLLC DOPPLER 67450 [facility], VELOCIMET 9 [facility] UMBILICAL ARTERY [place] PLLC 92151 [facility], BIOPHYSIC 9 [facility] AL CLINIC OF PROFILE W/O [place] 60912 [facility], UTERUS 9 [facility] J REAL TIME CLINIC OF F/U TRNSABDL [place] PER FETUS PLLC 12530 [facility], BIOPHYSIC 9 [facility] J AL CLINIC OF PROFILE W/[place] [address] [facility], 9 [facility] J UTERUS CLINIC OF LIMITED 1/> [place] FETUSES PLLC DOPPLER 99859 [facility], VELOCIMET 9 [facility] UMBILICAL ARTERY [place] PLLC DOPPLER 04069 [facility], VELOCIMET 9 [facility]MBILICAL [facility] [place] PLLC 86148 [facility], BIOPHYSIC 9 [facility] J AL CLINIC OF PROFILE W/O [place] NON-STRES PLLC [place] P[place] 97563 [facility], UTERUS 9 [facility] J REAL TIME CLINIC OF F/U TRNSABDL [place] PER FETUS PLLC FIBRIN 46293 HYACINTH CLAROS DGRADJ 9 [facility] PRODUCTS INC INC D-DIMER QUAL/SEMI LACI FIBRINOGE 51113 HYACINTH CLAROS N 9 [facility] ACTIVITY INC INC PROTHROMB 52159 HYACINTH CLAROS IN TIME 9 [facility] INC INC BASIC 67343 HYACINTH CLAROS METABOLIC 9 [facility] PANEL INC INC CALCIUM TOTAL BLOOD 55403 HYACINTH CLAROS COUNT 9 [facility] COMPLETE INC INC AUTO&[place] [address] HYACINTH CLAROS BLOOD/URI 9 [facility] C ACID INC INC THROMBOPL 85198 HYACINTH CLAROS ASTIN 9 [facility] TIME INC INC PARTIAL PLASMA/WH OLE BLOOD TRANSFERA 53202 HYACINTH CLAROS SE 9 [facility] ASPARTATE INC INC AMINO AST SGOT TRANSFERA 88347 HYACINTH CLAROS SE 9 [facility] ALANINE INC INC AMINO ALT SGPT 88192 HYACINTH CLAROS NONSTRESS 9 [facility] TEST INC INC URNLS DIP 33209 HYACINTH CLAROS 9 [facility] STICK/TAB INC INC LET REAGENT AUTO MICROSCOP Y OBSERVATI 80615 KING CARIAS, ON/INPATI 9 ARETHA Andrade [facility] CARE 55 MINUTES BLD GLU A4253 [facility] TEST/REAG 9 PHARMACY PHARMACY T STRIPS #591 #591 HOME BLD GLU MON-50 DOPPLER 50950 [facility], VELOCIMET 9 [facility] J RY CL[facility] OF UMBILICAL ARTERY [place] [facility] 97760 [facility] [place], BIOPHYSIC 9 [facility] Lott [place] CLINIC OF PROFILE W/O [place] NON-STRES [facility] [place] [address]98 [facility], UTERUS 9 [facility] J REAL TIME CLINIC OF F/U TRNSABDL [place] PER FETUS [facility] US PREG 40640 [facility], UTERUS 9 [facility] J REAL TIME CLINIC OF F/U TRNSABDL [place] PER FETUS [facility] 69013 [facility], BIOPHYSIC 9 [facility] J AL CLINIC OF PROFILE W/O [place] NON-STRES [facility] S TESTING CUL BACT 30078 COMBINED COMBINED XCPT 9 PHYSICIAN PHYSICIAN URINE S LAB S LAB BLOOD/STO OL AEROBIC ISOL DOPPLER 34616 [facility], VELOCIMET 9 [facility] J [facility]MBILICAL [facility] [place] [facility] DOPPLER 27484 [facility], VELOCIMET 9 [facility] J RY [facility] OF UMBILICAL ARTERY [place] [facility] US PREG 25863 [facility], UTERUS 9 [facility] J REAL TIME CLINIC OF F/U TRNSABDL [place] PER FETUS [facility] 93139 [facility], BIOPHYSIC 9 [facility] J AL CLINIC OF PROFILE W/O [place] NON-STRES [facility] [place] [address]135 KRAFT, UTERUS 9 FADI R REAL TIME DIAGNOSTI F/U CCENTER TRNSABDL PER FETUS CUL BACT 35326 COMBINED COMBINED XCPT 9 PHYSICIAN PHYSICIAN URINE S LAB S LAB BLOOD/STO OL AEROBIC ISOL ANTIBODY 02634 COMBINED COMBINED CHLAMYDIA 9 PHYSICIAN PHYSICIAN S LAB S LAB [place] PREG 70712 [facility] UTERUS 9 [facility] REAL TIME [facility]OSP HOSP F/U TRNSABDL PER FETUS RADIOLOGI 19468 Imer GARNER 9 NATIONAL DANIEL S EXAMINATI CORPORATI ON CHEST ON SINGLE VIEW FRONTAL 96775 [facility], NONSTRESS 9 [facility] J TEST CLINIC OF [place] [facility] 48281 [facility], NONSTRESS 9 [facility] J TEST CLINIC OF [place] [facility] URNLS DIP 25914 HYACINTH CLAROS 9 [facility] STICK/TAB INC INC LET [place] P[place] 32140 [facility] UTERUS 9 [facility] REAL TIME HOSP HOSP F/U TRNSABDL PER FETUS BLD GLU A4253 [facility] TEST/REAG 8 PHARMACY PHARMACY T STRIPS #591 #591 HOME BLD GLU MON-50 [place] PREG 52492 MEET, UTERUS 8 SHANELLE W/DETAIL DIAGNOSTI A CCENTER ANISH 1ST GESTATION DIAB G0109 [facility] SELF-MGMT 8 [facility] GROUP SESSION PER [address] [place] [address] [facility] OF ESTRIOL 8 [facility] INC GONADOTRO 64091 [facility] OF PIN 8 [facility] INC CHORIONIC QUANTITAT ROSS URNLS DIP 45399 DHS/CO HYACINTH [address] [place] [address] HEALTH STICK/TAB [facility]AL CENTER LET RGNT BANK ACCT NON-AUTO W/O MICRSCP ALPHA-FET 53692 LABONE OF LABONE OF OPROTEIN 8 [facility] INC SERUM URNLS DIP 57005 DHS/CO HYACINTH [address] [place] [address] STICK/TAB [facility]ENTRAL CENTER LET RGNT BANK ACCT NON-AUTO W/O MICRSCP GLUC BLD 86950 [facility] GLUC MNTR [address] [place] [address] DEV [facility] CLEARED BANK ACCT FDA SPEC HOME USE CYTP 74936 [facility] CERV/VAG [address] [place] [address] AUTO THIN [facility] LAYER BANK ACCT PREP MNL SCREEN ANTIBODY 89068 [facility] OF SCREEN 8 [facility] [place] INC RBC EACH SERUM TECHNIQUE BLOOD 10944 [facility] TYPING 8 [facility] SEROLOGIC ABO BLOOD 49883 [facility] OF TYPING 8 [facility] INC SEROLOGIC RH (D) ANTIBODY 02804 DHS/AR HYACINTH RUBELLA [address] [place] [address] CENTER BANK ACCT IADNA 20232 [facility] NEISSERIA [address] [place] [address] GONORRHOE BANK ACCT AE AMPLIFIED PROBE TQ SYPHILIS 83508 [facility]/AR HYACINTH TEST [address] [place] [address] NON-TREPO [facility] NEMAL BANK ACCT ANTIBODY QUAL COLLECTIO 35663 [facility] N VENOUS [address] [place] [address] BLOOD [facility] [place] [address] DHS/[facility] HEPATITIS [address] [place] [address] B [facility] SURFACE BANK ACCT ANTIGEN IADNA 27673 [facility] CHLAMYDIA [address] [place] [address] TRACHOMAT BANK ACCT IS AMPLIFIED PROBE TQ GONADOTRO 00806 HYACINTH CLAROS PIN 8 [facility]OS[facility] CHORIONIC INC INC QUANTITAT ROSS URNLS DIP 75702 HYACINTH CLAROS 8 [facility] STICK/TAB INC INC LET REAGENT AUTO MICROSCOP Y BLOOD 34271 HYACINTH CLAROS COUNT 8 [facility] COMPLETE INC INC AUTO&AUTO DIFRNTL WBC CULTURE 67194 HYACINTH CLAROS BACTERIAL 8 [facility] INC INC QUANTTATI [place]ON[place] PREG 93252 HYACINTH CLAROS UTERUS 8 [facility] REAL TIME INC INC W/IMAGE DCMTN TRANSVAG [place] PREG 01320 HYACINTH CLAROS UTERUS 8 [facility] REAL TIME INC INC W/IMAGE DCMTN TRANSVAG CULTURE 43435 HYACINTH CLAROS BACTERIAL 8 [facility] INC INC QUANTTATI VE COLONY COUNT URINE BLOOD 23582 HYACINTH CLAROS COUNT 8 [facility] COMPLETE INC INC AUTO&AUTO DIFRNTL WBC URNLS DIP 79059 HYACINTH CLAROS 8 [facility] STICK/TAB INC INC LET REAGENT AUTO MICROSCOP Y COMPREHEN 11201 HYACINTH CLAROS SIVE 8 [facility] METABOLIC INC INC PANEL URINE 19531 HYACINTH CLAROS 8 [facility] TEST INC INC [place] [address] HYACINTH CLAROS AMYLASE 8 [place] [address] HYACINTH CLAROS LIPASE 8 [facility] INC INC APPLICATI 93.54 Camilla Martin MD SPLINT Encounters Encounter Start End Date Code Location Performer Type Date OFFICE 32045 M[facility] COBIAN OUTPATIEN 7 7 DIABETIC T VISIT CENTER, 25 P MINUTES OFFICE 70718 JAQUELIN VILLEGAS OUTPATIEN 7 7 N FAMILY T VISIT CHIROPRAC 10 T MINUTES OFFICE 03799 [facility] COBIAN OUTPATIEN 6 6 DIABETIC T VISIT CENTER, 15 P MINUTES HOSPITAL HYACINTH - 6 6 [facility] OUTPATIEN INC T OFFICE 96694 OLYA DOBSON OUTPATIEN 6 6 [facility] T VISIT 15 MINUTES OFFICE 44869 [facility] JEANINE OUTPATIEN 6 6 PHYSICIAN T VISIT S GROUP 25 MINUTES OFFICE 81589 OLYA DOBSON OUTPATIEN 6 6 [facility] T VISIT 15 MINUTES OFFICE 93779 MATEO MUHAMMADLeticia OUTPATIEN 6 6 DIABETIC T VISIT CENTER, 25 P MINUTES OFFICE 69489 OLYA DOBSON OUTPATIEN 6 6 [facility] T VISIT 15 MINUTES OFFICE 99088 OLYA DOBSON OUTPATIEN 6 6 [facility] T VISIT 15 MINUTES HOSPITAL HYACINTH - 6 6 [facility] OUTPATIEN INC T OFFICE 07334 OLYA DOBSON OUTPATIEN 6 6 [facility] T VISIT 15 MINUTES OFFICE 35555 MATEO AMJAD SOB OUTPATIEN 6 6 DIABETIC T VISIT CENTER, 25 P MINUTES OFFICE 19580 MATEO AMJAD SOB OUTPATIEN 6 6 DIABETIC T VISIT 5 CENTER, MINUTES P OFFICE 20740 LEODANSAMRARoman VILLEGAS OUTPATIEN 6 6 N FAMILY RANDY T VISIT CHIROPRAC 10 T MINUTES OFFICE 15537 OLYA DOBSON OUTPATIEN 6 6 [facility] T VISIT 15 MINUTES OFFICE 35385 [facility] LARA OUTPATIEN 6 6 PHYSICIAN DANIKA T VISIT S GROUP 15 MINUTES OFFICE 71177 OLYA DOBSON OUTPATIEN 6 6 [facility] T VISIT 15 MINUTES OFFICE 05394 MATEO AMJAD SOB OUTPATIEN 6 6 DIABETIC T VISIT CENTER, 15 P MINUTES EMERGENCY 71603 JUSTINA SANCHEZ 5 5 PHYSICIAN DEPARTMEN S, PLLC T VISIT HIGH/URGE NT SEVERITY OFFICE 35051 OLYA DOBSON OUTPATIEN 5 5 [facility] T VISIT 15 MINUTES OFFICE 77987 JAQUELIN VILLEGAS OUTPATIEN 5 5 N FAMILY RANDY T VISIT CHIROPRAC 10 T MINUTES OFFICE 45486 MATEO WOLF OUTPATIEN 5 5 DIABETIC T VISIT CENTER, 25 P MINUTES OFFICE 83989 [facility] MARCO OUTPATIEN 5 5 PHYSICIAN DANIKA T VISIT S GROUP 15 MINUTES EMERGENCY 43061 JUSTINA M[facility]RISON [facility] 5 5 PHYSICIAN PAMELA S [facility] T VISIT MODERATE SEVERITY HOSPITAL HYACINTH - 5 5 [facility] OUTPATIEN INC T EMERGENCY 62643 HYACINTH 5 5 [facility] V[facility]/M IN[facility]OB H[facility] HYACINTH - 5 5 [facility] OUTPATIEN INC T HOSPITAL HYACINTH - 5 5 [facility] OUTPATIEN INC T HOSPITAL HYACINTH - 5 5 [facility] OUTPATIEN INC T EMERGENCY 20066 JUSTINA BOWMAN 5 5 PHYSICIAN ANNA PAMELA S [facility] T VISIT HIGH/URGE NT SEVERITY EMERGENCY 25344 [facility] 5 5 [facility] MODERATE SEVERITY HOSP[facility] HYACINTH - 5 5 [facility] OUTPATIEN INC T HOSPITAL HYACINTH - 5 5 [facility] OUTPATIEN INC T OFFICE 28386 MATEO PEDROZA OUTPATIEN 5 5 FOOT & N SHABNAM T VISIT ANKLE CE 15 MINUTES OFFICE 49784 OLYA DOBSON OUTPATIEN 5 5 [facility] T VISIT 15 MINUTES OFFICE 97535 MATEO FOY OUTPATIEN 5 5 DIABETIC R TAR T VISIT CENTER 25 MINUTES EMERGENCY 37732 JUSTINA JEANINE 5 5 PHYSICIAN ANNA DEPARTMEN S, PLLC T VISIT MODERATE SEVERITY OFFICE 76599 [facility] SCHULSTAD OUTPATIEN 5 5 PHYSICIAN CAM T VISIT S GROUP 10 MINUTES HOSPITAL HYACINTH - 5 5 [facility] OUTPATIEN INC T OFFICE 40969 [facility] OJEDA OUTPATIEN 5 5 PHYSICIAN MARGOTH T VISIT S GROUP 15 MINUTES OFFICE 42408 [facility] SCHULSTAD OUTPATIEN 5 5 PHYSICIAN CAM T VISIT S GROUP 15 MINUTES EMERGENCY 86655 JUSTINA JEANINE 5 5 PHYSICIAN ANNA DEPARTMEN S, PLLC T VISIT HIGH/URGE NT SEVERITY OFFICE 37184 [facility] OJEDA OUTPATIEN 5 5 PHYSICIAN MARGOTH T VISIT S GROUP 15 MINUTES OFFICE 86383 [facility] OJEDA OUTPATIEN 5 5 PHYSICIAN MARGOTH T NEW 20 S GROUP MINUTES HOSPITAL HYACINTH - 5 5 [facility] OUTPATIEN INC T EMERGENCY 65769 JUSTINA MARKSN 5 5 PHYSICIAN LINARES DEPARTMEN S, PLLC T VISIT HIGH/URGE NT SEVERITY HOSPITAL HYACINTH - 5 5 [facility] OUTPATIEN INC T OFFICE 55013 OLYA DOBSON OUTPATIEN 5 5 [facility] T VISIT 15 MINUTES OFFICE 09605 MATEO MUHAMMADD SOB OUTPATIEN 5 5 DIABETIC T VISIT [place], 25 P MINUTES OFFICE 22007 [facility] FRYMAN OUTPATIEN 5 5 PHYSICIAN EUG T VISIT S GROUP 10 MINUTES OFFICE 49765 [facility] JEANINE OUTPATIEN 5 5 PHYSICIAN ANNA T VISIT S GROUP 15 MINUTES OFFICE 03177 HYACINTH PAIZ OUTPATIEN 5 5 [facility] ANNA T VISIT HOSPITAL 15 MINUTES OFFICE 93178 MATEO WOLF OUTPATIEN 5 5 DIABETIC T VISIT CENTER [address]ES [address] PEDROZA OUTPATIEN 5 5 DANIEL Willams N SHABNAM T VISIT MIRTA 15 DPM PSC MINUTES OFFICE 52273 OLYA DOBSON OUTPATIEN 5 5 [facility] T VISIT 15 MINUTES HOSPITAL HYACINTH - 5 5 [facility] OUTPATIEN INC T OFFICE 11008 [facility] OUT[facility] 5 5 HEALTH AYAD T VISIT MEDICAL 40 GROUP MINUTES HOSPITAL CENTRAL - 5 5 [facility]OSP T OFFICE 74125 LEODANRoman BAKARI OUTPATIEN 5 5 N FAMILY RANDY T VISIT CHIROPRAC 10 T MINUTES OFFICE 19752 [facility] LARA OUTPATIEN 4 4 PHYSICIAN DANIKA T VISIT S GROUP 15 MINUTES OFFICE 38741 OLYA PAL 4 4 [facility] T VISIT 15 MINUTES OFFICE 93724 [facility]ENTR[facility] JONES TRA OUTPATIEN 4 4 [place] T VISIT ORTHOPAED 15 [facility] MINUTES OFFICE 50368 [facility] CONSULTAT 4 4 NEUROLOGY AYAD ION NEW/ESTAB CONSULTAN PATIENT T 60 MIN OFFICE 25128 [facility] OUTPATIEN 4 4 PHYSICIAN T VISIT S GROUP 25 MINUTES OFFICE 72405 OLYA PAL 4 4 [facility] T VISIT 15 MINUTES OFFICE 98696 CENTRAL JONES TRA OUTPATIEN 4 4 [place] T VISIT ORTHOPAED 15 [facility] MINUTES OFFICE 71865 OLYA PAL 4 4 [facility] T VISIT 15 MINUTES EMERGENCY 15956 [facility] 4 4 TRUDI DEPARTMEN EMERGENCY T VISIT PHYS HIGH/URGE NT SEVERITY OFFICE 64942 MATEO PEDROZA OUTPATIEN 4 4 FOOT & N SHABNAM T VISIT ANKLE CE 15 MINUTES OFFICE 51833 JONES TRA JONES TRA OUTPATIEN 4 4 T VISIT 15 MINUTES OFFICE 69247 MATEO PEDROZA OUTPATIEN 4 4 FOOT & N SHABNAM T NEW 30 ANKLE CE MINUTES OFFICE 06559 OLYA PAL 4 4 [facility] T VISIT 15 MINUTES OFFICE 85007 BAKARI PAL 4 4 RANDY RANDY T VISIT 10 MINUTES EMERGENCY 59786 JEANINE BOWMAN 4 4 ANNA ANNA DEPARTMEN T VISIT HIGH/URGE NT SEVERITY OFFICE 60826 OLYA PAL 4 4 [facility] T VISIT 15 MINUTES OFFICE 09683 BAKARI PAL 4 4 RANDY RANDY T VISIT 10 MINUTES OFFICE 48056 BAKARI PAL 4 4 RANDY RANDY T VISIT 10 MINUTES OFFICE 19850 MAROC PAL 4 4 DANIKA DANIKA T VISIT 15 MINUTES HOSPITAL HYACINTH - 4 4 [facility] OUTPATIEN INC T OFFICE 74732 BAKARI PAL 4 4 RANDY RANDY T NEW 30 MINUTES OFFICE 37543 OLYA PAL 4 4 [facility] T VISIT 15 MINUTES OFFICE 02195 OLYA PAL 4 4 [facility] T VISIT 15 MINUTES OFFICE 97221 OLYA PAL 4 4 [facility] T VISIT 15 MINUTES PERIODIC 52112 [facility] LARA PREVENTIV 4 4 DANIKA DANIKA E MED EST PATIENT 18-39 YRS OFFICE 33785 OLYA PAL 3 3 [facility] T VISIT 15 MINUTES Emergency LILY Brooks MD (ER) 3 19:56 3 21:05 [place] EMERGENCY 17711 [facility] NESBITT 3 3 DEPARTMEN T VISIT MODERATE SEVERITY OFFICE 02727 ADEOLA ANT ADEOLA ANT OUTPATIEN 3 3 T VISIT 15 MINUTES OFFICE 89875 OLYA DOBSON OUTPATIEN 3 3 [facility] T VISIT 15 MINUTES Emergency LILY Bowman MD (ER) 3 21:55 3 23:44 [facility] EMERGENCY 27285 JEANINE BOWMAN 3 3 ANNA ANNA DEPARTMEN T VISIT HIGH/URGE NT SEVERITY [facility] - [facility] T OFFICE 12412 ADEOLA ANT ADEOLA ANT OUTPATIEN 3 3 T VISIT 25 MINUTES OFFICE 14887 WILMER MUÑIZ OUTPATIEN 3 3 T VISIT 25 MINUTES [facility]OSPITAL [facility] - 3 3 [facility] T Emergency LILY Escobar (ER) 3 11:33 3 15:32 [facility] EMERGENCY 52784 LUZ ESCOBAR DEPT 3 3 [facility] FIDE VISIT HIGH SEVERITY& THREAT [email or web address] - 3 3 [facility] T EMERGENCY 93947 [facility] 3 3 [facility] DEPARTMEN [facility] T VISIT MODERATE SEVERITY OFFICE 92788 OLYA DOBSON OUTPATIEN 3 3 [facility] T VISIT 15 MINUTES OFFICE 31839 OLYA DOBSON OUTPATIEN 3 3 [facility] T VISIT 15 MINUTES OFFICE 48696 WILMER MUÑIZ OUTPATIEN 3 3 T VISIT 15 MINUTES [facility]OSP[facility] - 3 3 [facility] T OFFICE 09215 ADE[facility]A ANT ADEOLA ANT OUTPATIEN 3 3 T VISIT 25 MINUTES HOSPITAL [facility] - 3 3 [facility] T EMERGENCY 11795 SHAUN RASHID DEPT 3 3 EMERGENCY FIDE VISIT SERVICES HIGH SEVERITY& THREAT FUN EMERGENCY 91303 [facility] 3 3 [facility] DEPARTMEN INC T VISIT LOW/MODER SEVERITY OFFICE 38872 [facility] GUILLEN ANTONINO OUTPATIEN 2 2 T VISIT 15 MINUTES OFFICE 47503 OLYA DOBSON OUTPATIEN 2 2 [facility] T VISIT 15 MINUTES OFFICE 20577 OLYA DOBSON OUTPATIEN 2 2 [facility] T VISIT 15 MINUTES OFFICE 41261 ADEOLA MIR ANT OUTPATIEN 2 2 T VISIT 15 MINUTES PERIODIC 45235 MARCO LARA PREVENTIV 2 2 DANIKA DANIKA E MED EST PATIENT 18-39 YRS OFFICE 32907 [facility] OUTPAT[facility] 2 2 LTH SLEEP T VISIT AND REHA 10 MINUTES [facility]OSP[facility] - 2 2 [facility] T OFFICE 10960 OLYA DOBSON OUTPATIEN 2 2 [facility] T VISIT 15 MINUTES OFFICE 91165 WILMER GUILLEN ANTONINO OUTPATIEN 2 2 T VISIT 25 MINUTES [facility]OSPITAL [facility] - 2 2 [facility] T OFFICE 02692 [facility] LARA OUTPATIEN 2 2 DANIKA DANIKA T VISIT 15 MINUTES OFFICE 14704 OLYA DOBSON OUTPATIEN 2 2 [facility] T VISIT 15 MINUTES OFFICE 58476 [facility] HILARIO II OUTPATIEN 2 2 LT SLEEP VINCENT T NEW 30 AND REHA MINUTES OFFICE 09356 OLYA DOBSON OUTPATIEN 2 2 [facility] T VISIT 15 MINUTES OFFICE 72959 [facility] OUTPATIEN 2 2 DANIKA DANIKA T VISIT 25 MINUTES OFFICE 61589 WILMER MUÑIZ OUTPATIEN 2 2 T NEW 45 MINUTES [facility]OSP[facility] - 2 2 [facility] [place] [place] T OFFICE 53766 ADEOLA ANT ADEOLA ANT OUTPATIEN 2 2 T VISIT 25 MINUTES OFFICE 06720 [facility] 2 T NEW 30 MINUTES OFFICE [address] [facility] LANI CONSULTAT 2 2 ION NEW/ESTAB PATIENT 40 MIN OFFICE 75125 JONES TRA JONES TRA OUTPATIEN 2 2 T VISIT 15 MINUTES OFFICE 13243 JONES TRA JONES TRA OUTPATIEN 2 2 T VISIT 10 MINUTES OFFICE 97312 JONES TRA JONES TRA OUTPATIEN 2 2 T VISIT 15 MINUTES OFFICE 81121 OLYA DOBSON OUTPATIEN 2 2 [facility] T [facility]UTES [facility] - 2 2 [facility] OUTPATIEN INC T OFFICE 22288 ADEOLA ANT ADEOLA ANT OUTPATIEN 2 2 T VISIT 25 MINUTES OFFICE 84996 [facility] OUTPATIEN 2 2 T VISIT 15 MINUTES OFFICE 40558 [facility] OUTPATIEN 2 2 T VISIT 15 MINUTES EMERGENCY 28532 SHAUN HOLLAND DEPT 2 2 EMERGENCY VISIT SERVICES HIGH SEVERITY& THREAT FUN EMERGENCY 39255 [facility] 2 2 [facility] DEPARTMEN INC T VISIT MODERATE SEVERITY [facility]OSPITAL [facility] - 2 2 [facility] T OFFICE 22466 ADEOLA ANT ADEOLA ANT OUTPATIEN 2 2 T NEW 45 MINUTES OFFICE 19520 JEANINE BOWMAN OUTPATIEN 2 2 ANNA ANNA T NEW 20 MINUTES OFFICE 20308 [facility] ABDI OUTPATIEN 2 2 T VISIT 15 MINUTES HOSPITAL [facility] - 2 2 [facility] T OFFICE 01488 [facility] OUTPATIEN 2 2 [facility] MINUTES P OFFICE 22227 OLYA DOBSON OUTPATIEN 1 1 [facility] T VISIT 15 MINUTES OFFICE 31781 [facility] OUTPATIEN 1 1 T VISIT 15 MINUTES OFFICE 16956 [facility]RAVO [facility] OUTPATIEN 1 1 T VISIT 15 MINUTES EMERGENCY 20244 LIANG MARGOTH LIANG MARGOTH 1 1 DEPARTMEN T VISIT HIGH/URGE NT SEVERITY EMERGENCY 56990 [facility] 1 1 [facility] T VISIT MODERATE [facility]VERITY [facility]OSPITAL [facility] - 1 1 [facility] OUT[facility] INC T OFFICE 57053 [facility] OUT[facility] 1 1 T VISIT 15 MINUTES OFFICE 56302 [facility] OUT[facility] 1 1 T VISIT 15 MINUTES OFFICE 44835 [facility] OUTPATI[facility] 1 1 T VISIT 15 MINUTES OFFICE 69614 [facility] 1 1 T VISIT 15 MINUTES OFFICE 37891 OLYA DOBSON OUTPATIEN 1 1 [facility]ES OFF[facility] 27731 [facility] OUT[facility] 1 1 [place] VIS[place] ORTHOPAED 15 [facility] MINUTES OFFICE 48743 [facility] CONSULTAT 1 1 [place] I[place] ORTHOPAED NEW/ESTAB [facility] PATIENT 40 MIN [facility]OSPITAL [facility] - 1 1 [facility] OUTPATIEN [facility] T EMERGENCY 38942 [facility] 1 [facility] MODERATE SEVERITY EMERGENCY 92678 SHAUN PEREYRA 1 1 EMERGENCY ANNA DEPARTMEN SERVICES T VISIT HIGH/URGE NT SEVERITY OFFICE 50433 [facility] 15 [facility] MINUTES HOSPITAL HYACIN[facility] - 1 [address] [facility] HYACINTH [facility] 1 [address] [facility] EMERGENCY 68212 HYACINTH 1 1 [facility] T VISIT LOW/MODER SEVERITY EMERGENCY 00794 SHAUN ESCOBAR 1 1 [facility]URGE NT SEVERITY OFFICE 04326 [facility] 1 1 [facility] T VIS[facility] OF 15 [facility] MINUTES [facility] HYACINTH - 1 [address] [facility] HYACIN[facility] 1 1 [facility] OUTPATIEN [facility] T OFFICE 25431 OLYA DOBSON [facility]PATIEN 1 1 [facility]ES OFFICE 47934 [facility] 1 1 [facility] T VISIT [facility]IN[facility] OF 15 [place] MINUTES [facility] 89712 [facility] L[facility] PREVENTIV 0 0 [facility] E MED EST CLINIC OF PATIENT ROLAND 18-39 YRS EMERGENCY 13549 SHAUN ESCOBAR 0 0 EMERGENCY III, DEPARTMEN SERVICES ABELINO T VISIT HIGH/URGE ASSOCIATE NT S SEVERITY EMERGENCY 83764 HYACINTH 0 0 [facility] T VISIT LOW/MODER SEVERITY HOSPITAL HY[facility] - 0 0 [facility] OUTPATIEN [facility] T OFFICE 68989 [facility], OUTPATIEN 9 9 [facility] J T VISIT CLINIC OF 15 MINUTES [facility] EMERGENC[facility] 35792 SHAUN HERNANDEZ, [address] [facility] T VISIT HIGH/URGE ASSOCIATE NT S [facility] HYACINTH - [address] [facility] EMERGENCY 39839 [facility] 9 9 [facility] T V[facility]IT LIMITED/M INOR [facility] HYACINTH - [address] [facility] OFFICE 68635 [facility] OUTPATI[facility] 9 9 [facility] J T VISIT CLINIC OF 25 MINUTES [facility] OFFICE 17165 [facility], OUTPATIEN 9 9 [facility] J T VISIT CLINIC OF [address] [facility] [place] [place] HYACINTH [facility] 9 9 [facility]IENT [facility] HYACIN[facility] - 9 9 [facility] HYACINTH - 9 9 [facility] 99546 [facility] OUTPATIEN 9 9 [facility] J T VISIT CLINIC OF 15 MINUTES [facility] OFF[facility] 41562 [facility], OUTPATIEN 9 9 [facility] J T VISIT CLINIC OF 15 MINUTES [facility] OFF[facility] 30243 MEET, CONSULTAT 9 9 SHANELEL ION DIAGNOSTI A NEW/ESTAB CCENTER PATIENT 15 MIN [facility] - 9 [facility] 86811 ARIADNA ROSENTHAL OUTPATIEN 9 9 JR, Kaylie Mariscal JR, Kaylie Mariscal T VISIT 15 MINUTES [facility]OSP[facility] - 9 9 [facility] T EMERGENCY 64092 ANGELA BOWMAN, 9 9 NATIONAL DANIEL S [facility] CORPORATI T VISIT ON MODERATE SEVERITY OFFICE 23677 [facility], OUTPATIEN 9 9 [facility] Lott T VISIT CLINIC OF [address] [facility] [place] [place] [facility]ACINTH - 9 9 [facility] OUT[facility]IEN INC T OFFICE 72933 [facility], OUTPATIEN 9 9 [facility] Lott T VISIT CLINIC OF [address] [facility] [place] [place] HYACINTH - 9 9 [facility] OUTPATIEN INC T OFFICE 81889 WOMENCoyS MARCO[facility] OUTPATIEN 9 9 [facility] Lott T VISIT CLINIC OF [address] [facility] [place] [place] [facility]ACINTH - 9 9 [facility] OUTPATIEN INC T EMERGENCY 76958 [facility]ACINTH 9 9 [facility] DEPARTMEN INC T VISIT LIMITED/M INOR PROB EMERGENCY 37619 ANGELA RESENDEZ, 9 9 [facility] JYOTI E [facility] CORPORATI T VISIT ON HIGH/URGE NT SEVERITY [facility]OSP[facility] - [facility] 75922 ARIADNA ROSENTHAL OUTPATIEN 8 8 JR, Kaylie V , J V T VISIT 15 MINUTES HOSPITAL [facility] - 8 8 [facility] T EMERGENCY 55558 [facility] 8 8 [facility] DEPARTMEN INC T VISIT LIMITED/M INOR [facility] 73622 [facility] OUTPATIEN 8 8 [facility] T VISIT [facility] [place] 10 BANK ACCT MINUTES OFFICE 85182 [facility] OUTPATIEN 8 8 [facility] T NEW 30 [facility] [place] MINUTES BANK ACCT HOSPITAL HYACINTH - 8 8 [facility] OUTPATIEN INC T EMERGENCY 44076 HYACINTH 8 8 [facility] DEPARTMEN INC T VISIT MODERATE SEVERITY EMERGENCY 13472 HY[facility]INTH 8 8 [facility]URGE NT SEVERITY [facility]OSPITAL [facility] - 8 8 [facility] OUTPATIEN INC T
--- OUTSIDE RECORDS SUMMARY | 2016-06-18 14:17 | External Medical Summary Rpt ---
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 WA 71 AR Ac LF 74 -2 -1 .0 L- 28 NO ti AM 60 8- 6- 00 MA 74 LD ve ET 27 20 20 RT 6 HO 20 11 11 RI XA 5 PH CH ZO AR AR LE MA D -T CY W MP # DS 10 05 TA 91 BL ET BUENROSTRO 53 07 07 1 20 10 [...] CY J TA BL LL ET C AZ 00 06 06 1 6. 5 71 AR Ac IT 78 -0 -0 [...] CA PS 10 UL 05 E 91 ME 00 06 06 99 60 30 WA 71 AR Ac TF 78 -0 -0 .0 L- 21 NO ti OR 15 3- 3- 00 MA 88 LD ve HI 05 20 20 RT 9 N 06 11 11 RI HC 1 PH CH L AR AR 50 MA D 0 CY W MG # TA 10 BL 05 ET 91 00 06 06 0 53 28 WA 71 AR Ac 06 -0 -0 .0 L- 21 NO ti 90 3- 3- 00 MA 89 LD ve 47 20 20 RT 0 19 11 11 RI 7 PH CH AR AR MA D CY W # 10 05 91 CI 00 05 05 0 14 7 CL 23 CH Ac NJ 14 -2 -2 .0 IN ES ti OF 32 5- 5- 00 IC 41 TN ve LO 03 20 20 UT XA 70 11 11 PH CI 1 AR HI N MA CH HC CY AE L L 50 LL 0 C MG TA B NJ 00 05 05 0 25 5 CL 23 CH Ac ED 05 -2 -2 .0 IN ES ti NI 40 5- 5- 00 IC 42 TN ve SO 01 20 20 UT NE 72 11 11 PH 5 AR HI 10 MA CH CY AE MG L LL TA C BL ET ES 00 05 05 5 60 30 CL 23 CL Ac TR 55 -1 -1 .0 IN AR ti AD 50 6- 6- 00 IC 52 KE ve IO 88 20 20 L 70 11 11 PH DE 2 2 AR RE MG MA K CY J TA BL LL ET C 00 05 05 0 10 2 44 [...] 9- 0- 00 MA 65 MA ve NJ 59 20 20 RT 2 N ED 31 11 11 II NI 5 PH I SO AR WI LO MA LL NE CY IA 4 # M E MG 10 05 DO 91 SE PK 00 05 05 0 15 5 71 [...] # TA BL 10 ET 05 91 FL 00 04 04 2 1. 1 WA 71 CL Ac UC 17 -1 -1 00 L- 15 AR ti ON 25 5- 5- 0 MA 42 KE ve AZ 41 20 20 RT 4 OL 21 11 11 DE E 1 PH RE 15 AR K 0 MA J MG CY # TA BL 10 ET 05 91 ES 00 04 04 0 60 30 WA 71 CL Ac TR 55 -1 -1 .0 L- 15 AR ti AD 50 5- 5- 00 MA 42 KE ve IO 88 20 20 RT 5 L 70 11 11 DE 2 2 PH RE MG AR K MA J TA CY BL # ET 10 05 91 00 04 04 0 20 3 WA 44 CL Ac 40 -0 -0 .0 L- 92 AR ti 60 1- 1- 00 MA 77 KE ve 35 20 20 RT 4 80 11 11 DE 1 PH RE AR K MA J CY # 10 05 91 AN 43 03 03 1 15 15 WA 71 AR Ac TI 19 -1 -1 .0 L- 10 NO ti PY 90 4- 4- 00 MA 88 LD ve RI 01 20 20 RT 4 NE 61 11 11 RI -B 5 PH CH EN AR AR ZO MA D CA CY W IN # E EA [address] 91 OP AM 00 03 03 1 30 10 MT 71 AR Ac OX 78 -1 -1 .0 L- 10 NO ti IC 12 4- 4- 00 MA 88 LD ve IL 61 20 20 RT 5 LI 33 11 11 RI N 1 PH CH 50 AR AR 0 MA D MG CY W # CA PS 10 UL 05 E 91 00 02 02 0 16 5 MT 44 RU Ac 40 -2 -2 .0 L- 91 SH ti 60 1- 1- 00 MA 88 ve 35 20 20 RT 4 NE 70 11 11 IL 5 PH C AR MA CY # 10 05 91 00 02 02 0 16 4 WA 44 RU Ac 40 -1 -1 .0 L- 91 SH ti 60 6- 6- 00 MA 77 ve 35 20 20 RT 5 NE 70 11 11 IL 5 PH C AR MA CY # 10 05 91 AM 00 02 02 0 30 10 WA 71 RU Ac OX 78 -0 -0 [...] IA # M E 10 05 91 00 06 06 00 14 2 MT 44 ROSENBAUM Ac 40 -0 -1 .0 L- 77 MO ti 60 8- 8- 00 MA 28 N ve 36 20 20 RT 3 AN [address] 1 PH EW AR R MA CY #5 91 59 10 06 06 30 30 WA 69 CL Ac 63 -2 -1 .0 L- 92 AR ti 00 4- 8- 00 MA 61 KE ve 41 20 20 RT 1 43 08 09 DE 5 PH RE AR K MA J CY #5 91 NA 53 06 06 00 60 30 CL 19 CL Ac NJ 74 -0 -1 .0 IN 52 AR [...] MP #5 DS 91 TA BL ET IB 53 05 05 00 40 6 RI 78 CL Ac UP 74 -0 -2 .0 TE 24 AR ti RO 60 2- 1- 00 68 KE ve FE 46 20 20 AI N 40 09 09 D DE 40 5 PH RE 0 AR K MG M J #3 TA 93 BL 8 ET 00 05 05 00 7. 7 WA 70 CL Ac 37 -0 -2 00 L- 19 AR ti 80 8- 1- 0 MA 77 KE ve 20 20 20 RT 8 89 09 09 DE 3 PH RE AR K MA J CY #5 91 OX 00 05 05 00 30 5 [...] MP #5 DS 91 TA BL ET RA 00 10 05 04 60 [...] MG CY TA #5 BL 91 ET ME 00 02 02 00 21 6 WA 70 GA Ac TH 60 -0 -2 .0 L- 07 IN ti YL 34 8- 6- 00 MA 21 EY ve NJ 59 20 20 RT 8 ED 31 09 09 HI NI 5 PH CH SO AR AE LO MA L NE CY S 4 #5 MG 91 DO SE PK 59 10 02 03 30 30 WA [...] 20 RT 7 YC 66 09 09 HI IN 8 PH CH AR AE 25 MA L 0 CY S MG #5 TA 91 BL ET RA 00 10 01 02 60 30 [...] J CY CR EA #5 M 91 FE 00 01 01 00 30 30 WA 88 CL Ac RR 67 -0 -1 .0 L- 13 AR ti OU 70 9- 5- 00 MA 33 KE ve S 07 20 20 RT 5 BUENROSTRO 01 09 09 DE LF 0 PH RE AT AR K E MA J 32 CY 5 MG #5 91 TA BL ET TE 51 01 01 00 20 3 [...] AL AR E MA CY #5 91 LO 00 12 01 00 30 30 WA 88 CA Ac RA 78 -2 -1 .0 L- 13 ST ti TA 15 9- 5- 00 MA 27 IL ve DI 07 20 20 RT 8 LO NE 70 08 09 1 PH JR 10 AR J MA V MG CY TA #5 BL 91 ET CE 00 12 01 00 20 10 WA 70 CA Ac FD 78 -2 -1 .0 L- 01 ST ti IN 12 9- 5- 00 MA 64 IL ve IR 17 20 20 RT 0 LO 66 08 09 30 0 PH JR 0 AR J MG MA V CY CA PS #5 UL 91 E 59 10 01 02 30 30 WA 69 CL Ac 63 -2 -1 .0 L- 92 AR ti 00 4- 5- 00 MA 61 KE ve 41 20 20 RT 1 43 08 09 DE 5 PH RE AR K MA J CY #5 91 NA 00 12 01 00 17 30 WA 70 CA Ac SO 08 -2 -1 .0 L- 01 ST ti NE 51 9- 5- 00 MA 64 IL ve X 28 20 20 RT 1 LO 50 80 08 09 1 PH JR MC AR J G MA V NA CY SA L #5 SP 91 RA Y ME 00 01 01 00 21 6 WA 70 GO Ac TH 60 -0 -1 .0 L- 02 BL ti YL 34 3- 5- 00 MA 39 E ve NJ 59 20 20 RT 1 RO ED 31 09 09 ND NI 5 PH AL SO AR E LO MA NE CY 4 #5 MG 91 DO SE PK AZ 00 12 01 00 6. 5 WA 69 GA Ac IT 78 -1 -0 00 L- 99 IN ti HR 11 4- 1- 0 MA 82 EY ve OM 49 20 20 RT 8 YC 66 08 09 HI IN 8 PH CH AR AE 25 MA L 0 CY S MG #5 TA 91 BL ET ME 00 12 01 00 21 6 WA 69 GA Ac TH 60 -1 -0 .0 L- 99 IN ti YL 34 4- 1- 00 MA 82 EY ve NJ 59 20 20 RT 7 ED 31 08 09 HI NI 5 PH CH SO AR AE LO MA L NE CY S 4 #5 MG 91 DO SE PK 00 12 01 00 18 7 WA 88 GA Ac 03 -1 -0 0. L- 13 IN ti 18 4- 1- 00 MA 21 EY ve 68 20 20 0 RT 8 51 08 09 HI 2 PH CH AR AE MA L CY S #5 91 59 10 12 01 30 30 WA 69 CL Ac 63 -2 -0 .0 L- 92 AR ti 00 4- 4- 00 MA 61 KE ve 41 20 20 RT 1 43 08 08 DE 5 PH RE AR K MA J CY #5 91 00 11 12 00 20 5 WA [...] TA #5 BL 91 ET 59 10 11 00 30 30 WA [...] MG CY TA #5 BL 91 ET Procedures Procedure DOS Code Location Performer Comment HEMOGLOBI 37499 [facility] [place] N 7 DIABETIC GLYCOSYLA RAPHINE, ASUNCION A1C P CHIROPRAC 83997 JAQUELIN BAKARI TIC 7 N FAMILY MANIPULAT CHIROPRAC ROSS TX T SPINAL 3-4 [facility] CHIROPRAC 50423 JAQUELIN LONG TIC 7 N FAMILY MANIPULAT CHIROPRAC ROSS TX T SPINAL 3-4 REGIONS CHIROPRAC 63414 LEODANRoman BAKARI TIC 7 N FAMILY MANIPULAT CHIROPRAC ROSS TX T SPINAL 3-4 REGIONS CHIROPRAC 22787 LEODANRoman BAKARI TIC 7 N FAMILY MANIPULAT CHIROPRAC ROSS TX T SPINAL 3-4 [facility] CHIROPRAC 42267 LEODANRoman BAKARI TIC 7 N FAMILY MANIPULAT CHIROPRAC ROSS TX T SPINAL 3-4 [facility] CHIROPRAC 99916 LEODANRoman BAKARI TIC 7 N FAMILY MANIPULAT CHIROPRAC ROSS TX T SPINAL 3-4 [facility] HEMOGLOBI 75915 [place] N 6 DIABETIC GLYCOSYLA RAPHINE, ASUNCION A1C P BLOOD 72480 [facility] COUNT 6 [facility] COMPLETE INC INC AUTO&AUTO DIFRNTL WBC COMPREHEN 88102 [facility] SIVE 6 [facility] METABOLIC INC INC PANEL COLLECTIO 35566 [facility] N VENOUS 6 [facility] BLOOD INC INC VENIPUNCT URE LIPID 52641 [facility] PANEL 6 [facility] INC INC CHIROPRAC 49796 JAQUELIN VILLEGAS TIC 6 N FAMILY RANDY MANIPULAT CHIROPRAC ROSS TX T SPINAL 3-4 REGIONS CHIROPRAC 78598 JAQUELIN VILLEGAS TIC 6 N FAMILY RANDY MANIPULAT CHIROPRAC ROSS TX T SPINAL 3-4 REGIONS HEMOGLOBI 75819 [facility]O [place] N 6 DIABETIC GLYCOSYLA CENTER, ASUNCION A1C P CHIROPRAC 01702 JAQUELIN VILLEGAS TIC 6 N FAMILY RANDY MANIPULAT CHIROPRAC ROSS TX T SPINAL 3-4 REGIONS CHIROPRAC 02901 JAQUELIN VILLEGAS TIC 6 N FAMILY RANDY MANIPULAT CHIROPRAC ROSS TX T SPINAL 3-4 REGIONS CHIROPRAC 08896 JAQUELIN LONG TIC 6 N FAMILY DARRON MANIPULAT CHIROPRAC ROSS TX T SPINAL 3-4 REGIONS CHIROPRAC 63919 JAQUELIN VILLEGAS TIC 6 N FAMILY RANDY MANIPULAT CHIROPRAC ROSS TX T SPINAL 3-4 REGIONS CHIROPRAC 41919 JAQUELIN LONG TIC 6 N FAMILY DARRON MANIPULAT CHIROPRAC ROSS TX T SPINAL 3-4 REGIONS CHIROPRAC 97665 JAQUELIN LONG TIC 6 N FAMILY DARRON MANIPULAT CHIROPRAC ROSS TX T SPINAL 3-4 REGIONS COLLECTIO 53436 [facility] N VENOUS 6 [facility] BLOOD INC INC VENIPUNCT URE COMPREHEN 25032 [facility] SIVE 6 [facility] METABOLIC INC INC PANEL LIPID 61893 [facility] PANEL 6 [place] [address] [facility] THYROID 6 [facility] STIMULATI INC INC NG HORMONE TSH CHIROPRAC 22133 JAQUELIN VILLEGAS TIC 6 N FAMILY RANDY MANIPULAT CHIROPRAC ROSS TX T SPINAL 3-4 REGIONS CHIROPRAC 87733 JAQUELIN VILLEGAS TIC 6 N FAMILY RANDY MANIPULAT CHIROPRAC ROSS TX T SPINAL 3-4 REGIONS HEMOGLOBI 15533 [place] AMJAD SOB N 6 DIABETIC GLYCOSYLA RAPHINE, ASUNCION A1C P CHIROPRAC 55180 JAQUELIN VILLEGAS TIC 6 N FAMILY RANDY MANIPULAT CHIROPRAC ROSS TX T SPINAL 3-4 REGIONS CHIROPRAC 99048 JAQUELIN VILLEGAS TIC 6 N FAMILY RANDY MANIPULAT CHIROPRAC ROSS TX T SPINAL 3-4 REGIONS CHIROPRAC 85671 JAQUELIN VILLEGAS TIC 6 N FAMILY RANDY MANIPULAT CHIROPRAC ROSS TX T SPINAL 3-4 REGIONS CHIROPRAC 36037 JAQUELIN LONG TIC 6 N FAMILY DARRON MANIPULAT CHIROPRAC ROSS TX T SPINAL 3-4 REGIONS HEMOGLOBI 42259 [place] AMJAD SOB N 6 DIABETIC GLYCOSYLA RAPHINE, ASUNCION A1C P CHIROPRAC 50101 JAQUELIN VILLEGAS TIC 6 N FAMILY RANDY MANIPULAT CHIROPRAC ROSS TX T SPINAL 3-4 REGIONS CHIROPRAC 35156 JAQUELIN VILLEGAS TIC 6 N FAMILY RANDY MANIPULAT CHIROPRAC ROSS TX T SPINAL 3-4 REGIONS CHIROPRAC 71935 JAQUELIN VILLEGAS TIC 6 N FAMILY RANDY MANIPULAT CHIROPRAC ROSS TX T SPINAL 3-4 REGIONS CHIROPRAC 46716 JAQUELIN VILLEGAS TIC 6 N FAMILY RANDY MANIPULAT CHIROPRAC ROS[place] T SPINAL 3-[address] [place] [address] [facility] TRANSVAGI 6 PHYSICIAN DANIKA NAL S GROUP CHIROPRAC 62268 JAQUELIN LONG TIC 6 N FAMILY DARRON MANIPULAT CHIROPRAC ROSS TX T SPINAL 3-4 REGIONS CHIROPRAC 29735 JAQUELIN VILLEGAS TIC 6 N FAMILY RANDY MANIPULAT CHIROPRAC ROSS TX T SPINAL 3-4 REGIONS CHIROPRAC 97681 JAQUELIN LONG TIC 6 N FAMILY DARRON MANIPULAT CHIROPRAC ROSS TX T SPINAL 3-4 REGIONS CHIROPRAC 17709 JAQUELIN VILLEGAS TIC 6 N FAMILY RANDY MANIPULAT CHIROPRAC ROSS TX T SPINAL 3-4 REGIONS CHIROPRAC 56750 JAQUELIN VILLEGAS TIC 6 N FAMILY RANDY MANIPULAT CHIROPRAC ROSS [place] T SPINAL 3-[address] [place] [address] [facility]CO TRANSVAGI 6 PHYSICIAN DANIKA NAL S GROUP ECG 55205 HYACINTH MARTINEZ ROUTINE 6 [facility] W/LEAST P 12 LDS I&R ONLY RADIOLOGI 80540 [place] GINGER C EXAM 6 MEDICAL EDIS CHEST 2 IMAGING VIEWS ASS FRONTAL&L ATERAL URNLS DIP 32609 [facility] MARCO 6 PHYSICIAN DANIKA STICK/TAB S GROUP LET RGNT NON-AUTO W/O MICRSCP HEMOGLOBI 85046 [place] AMJAD SOB N 6 DIABETIC GLYCOSYLA RAPHINE, ASUNCION A1C P SURGICAL L3260 [facility]ED ADVANCED BOOT/SHOE 5 TECHNOLOG TECHNOLOG EACH IES INC IES INC RADEX 18060 [place] BEINE FOOT 5 MEDICAL ROCIO COMPLETE IMAGING MINIMUM 3 ASS VIEWS CHIROPRA 30665 JAQUELIN VILLEGAS TIC 5 N FAMILY RANDY MANIPULAT CHIROPRAC ROSS TX T SPINAL 1-2 [facility] HEMOGLOBI 93934 [place] AMJAD SOB N 5 DIABETIC GLYCOSYLA RAPHINE, [facility] A1[place] [address] HY[facility]OS INFUSION 5 [facility] THERAPY/P INC INC ROPHYLAXI S /DX 1ST TO 1 HR THERAPEUT 54867 HYACINTH [facility]AROS IC 5 [facility] INJECTION INC INC [place] [address] [facility] [place] SURG [facility] PATHOLOGY GROSS&ANNA ROSCOPIC EXAM TX MISSED 91399 [facility] MARCO 5 PHYSICIAN DANIKA FIRST S GROUP TRIMESTER SURGICAL ECG 85260 HYACINTH JAVIER JR ROUTINE 5 [facility] W/LEAST P 12 LDS I&[place] [address] [facility] INFUSION 5 [facility] THERAPY INC INC PROPHYLAX IS/DX EA HOUR ECG 86666 [facility] ROUTINE 5 [facility] ECG INC INC W/LEAST 12 LDS TRCG ONLY W/O I&R GLUC BLD 45313 HYACIN[facility] GLUC MNTR 5 [facility] DEV INC INC CLEARED FDA SPEC HOME USE INJECTION J2405 [facility]OS 5 [facility] ONDANSETR INC INC ON HCL PER 1 MG ANESTHESI 06787 [facility] A 5 ANESTH INCOMPLET OF THE E/MISSED BLUE US PREG 67275 [facility] UTERUS 5 MEDICAL EDIS REAL TIME IMAGING W/IMAGE ASS DCMTN TRANSVAG OPHTH 22986 [facility] 5 GRE GRE XM&EVAL COMPRHNSV ESTAB PT 1/> DETERMINA 68626 [facility] TION 5 GRE GRE REFRACTIV E STATE BLOOD 61316 HYACIN[facility] CLAROS COUNT 5 [facility] COMPLETE INC INC AUTO&AUTO DIFRNTL WBC URNLS DIP 91139 HY[facility]TH HYACINTH 5 [facility] STICK/TAB INC INC LET REAGENT AUTO MICROSCOP Y COMPREHEN 82692 [facility] SIVE 5 [facility] METABOLIC INC INC PANEL OBSTETRIC 10571 HYACINTH [facility] PANEL 5 [facility] INC INC COLLECTIO 45660 HYACIN[facility] CLAROS N VENOUS 5 [facility] BLOOD INC INC VENIPUNCT URE INF AGT G0432 HYACINTH CLAROS AB DETECT 5 [facility] EIA TECH INC INC HIV-1&/HI V-2 SCR US PREG 65835 [facility] LARA UTERUS 5 PHYSICIAN DANIKA REAL TIME S GROUP W/IMAGE DCMTN TRANSVAG IADNA 44909 [facility] CL[facility]OS NEISSERIA 5 [facility] INC INC GONORRHOE AE AMPLIFIED PROBE TQ IADNA 70718 [facility] CL[facility] CHLAMYDIA 5 [facility] INC INC TRACHOMAT IS AMPLIFIED PROBE TQ RADEX 02459 MATE[facility] PEDROZA FOOT 5 FOOT & N SHABNAM COMPLETE ANKLE CE MINIMUM 3 VIEWS HEMOGLOBI 61587 MATEO CURTSINGE N 5 DIABETIC R TAR GLYCOSYLA CENTER ASUNCION A1C RADEX 96395 [facility] MIKEY FOOT 5 MEDICAL ROCIO COMPLETE IMAGING MINIMUM 3 [place] [address] [facility], PICKLESIM SURG 5 LLC ER JR SUMIT PATHOLOGY GROSS&ANNA ROSCOPIC EXAM COLSC FLX 21466 [facility] MIKAYLA 5 PHYSICIAN CAM W/REMOVAL S GROUP LESION BY HOT BX FORCEPS CHIROPRAC 60572 JAQUELIN VILLEGAS TIC 5 N FAMILY RANDY MANIPULAT CHIROPRAC ROSS TX T SPINAL 1-[address] [place] [address] [place] & 5 MEDICAL ROCIO PELVIS IMAGING W/O ASS CONTRAST MATERIAL IADNA 99050 [facility] PICKLESIM NEISSERIA 5 [facility] ER JR SUMIT GONORRHOE AE AMPLIFIED PROBE TQ CYTP C/V 70760 [facility], [facility]ICK[facility] AUTO THIN 5 LLC ER JR SUMIT LYR PREPJ SCR MNL RESCR PHYS URNLS DIP 03354 [facility] LYNETTE 5 PHYSICIAN MARGOTH STICK/TAB S GROUP LET RGNT NON-AUTO W/O MICRSCP IADNA 67102 [facility] PICKLESIM CHLAMYDIA 5 [facility] ER JR SUMIT TRACHOMAT IS AMPLIFIED PROBE TQ GONADOTRO 05312 [facility] PIN 5 [facility] CHORIONIC INC INC QUALITATI VE COLLECTIO 51286 HYACIN[facility] CLRAOS N VENOUS 5 [facility] [place] [address] [facility] [place] & 5 MEDICAL ROCIO PELVIS IMAGING W/O ASS CONTRAST MATERIAL CHIROPRAC 10782 JAQUELIN VILLEGAS TIC 5 N FAMILY RANDY MANIPULAT CHIROPRAC ROSS TX T SPINAL 1-2 REGIONS COLLECTIO 13949 HYACINTH CLAROS N VENOUS 5 [facility] BLOOD INC INC VENIPUNCT URE LIPID 30453 HYACIN[facility] CL[facility]OS PANEL 5 [facility] INC INC FOR DIAB A5512 MATEO AMJALeticia SOB ONLY MX 5 DIABETIC DNSITY CENTER, INSRT DIR P FORMD PRFAB EA DIAB ONLY A5500 [facility] COBI[place] SOB FIT CSTM 5 DIABETIC PREP&SPL CENTER, SHOE MX P DNSITY INSRT HEMOGLOBI 48253 [facility] [place] SOB N 5 DIABETIC GLYCOSYLA CENTER, ASUNCION A1C P INJECTION J1040 [facility] JEANINE 5 PHYSICIAN ANNA METHYLPRE S GROUP DNISOLONE ACETATE 80 MG THERAPEUT 18004 [facility] JEANINE IC 5 PHYSICIAN ANNA PROPHYLAC S GROUP TIC/DX INJECTION SUBQ/IM COLLECTIO 10699 [facility] COBIAN SOB N VENOUS 5 DIABETIC BLOOD CENTER VENIPUNCT URE CHIROPRAC 73081 JAQUELIN VILLEGAS TIC 5 N FAMILY RANDY MANIPULAT CHIROPRAC RSOS TX T SPINAL 1-2 REGIONS THERAPEUT 09677 JAQUELIN VILLEGAS IC PX 1/> 5 N FAMILY RANDY AREAS CHIROPRAC EACH 15 T MIN EXERCISES CHIROPRAC 15827 JAQUELIN VILLEGAS TIC 5 N FAMILY RANDY MANIPULAT CHIROPRAC ROSS TX T SPINAL 1-2 REGIONS APPL 92658 JAQUELIN VILLEGAS MODALITY 5 N FAMILY RANDY 1/> AREAS CHIROPRAC TRACTION T MECHANICA L CHIROPRAC 63523 JAQUELIN VILLEGAS TIC 5 N FAMILY RANDY MANIPULAT CHIROPRAC ROSS TX T SPINAL 1-2 REGIONS THERAPEUT 17933 JAQUELIN VILLEGAS IC PX 1/> 5 N FAMILY RANDY AREAS CHIROPRAC EACH 15 T MIN EXERCISES [facility]- 44292 HYACINTH CLAROS AIDED 5 [facility] DETECTION INC INC SCREENING MAMMOGRAP HY SCREENING G0202 [facility] 5 [facility] MAMMOGRAP INC INC HY CHIRAG INCL CAD WHEN PERFORMD APPL 46359 JAQUELIN VILLEGAS MODALITY 5 N FAMILY RANDY 1/> AREAS CHIROPRAC ELEC T STIMJ EA 15 MIN THERAPEUT 29211 JAQUELIN VILLEGAS IC PX 1/> 5 N FAMILY RANDY AREAS CHIROPRAC EACH 15 T MIN EXERCISES CHIROPRAC 69230 JAQUELIN VILLEGAS TIC 5 N FAMILY RANDY MANIPULAT CHIROPRAC ROSS TX T SPINAL 1-2 REGIONS COMPREHEN 50978 [facility] SIVE 5 [facility] PANEL HEMOGLOBI 03132 [facility] N 5 [facility] H[facility] ASUNCION A1C THERAPEUT 83055 JAQUELIN VILLEGAS IC PX 1/> 5 N FAMILY RANDY AREAS CHIROPRAC EACH 15 T MIN EXERCISES CHIROPRAC 62924 JAQUELIN VILLEGAS TIC 5 N FAMILY RANDY MANIPULAT CHIROPRAC ROSS TX T SPINAL 1-2 [place] [address] [facility] TRANSVAGI 4 PHYSICIAN DANIKA NAL S GROUP NERVE 96294 [facility] CONDUCTIO 4 NEUROLOGY AYAD N STUDIES -12 CONSULTAN STUDIES T NEEDLE 46852 [facility] EMG EA 4 NEUROLOGY AYAD EXTREMTY W/PARASPI CONSULTAN NL AREA T COMPLETE SMR PRIM 29671 [facility] SRC WET 4 PHYSICIAN DANIKA [facility] S GROUP NFCT AGT MRI 89610 CENTRAL JONES TRA SPINAL 4 [place] CANAL ORTHOPAED LUMBAR ICS PLC W/O CONTRAST MATERIAL RADIOLOGI 91120 [facility] C EXAM 4 MEDICAL ROCIO CHEST 2 IMAGING VIEWS ASS FRONTAL&L ATERAL RADEX 37330 JONES TRA JONES TRA SPINE 4 LUMBOSACR AL 2/3 VIEWS THERAPEUT 74760 BAKARI VILLEGAS IC PX 1/> 4 RANDY RANDY AREAS EACH 15 MIN EXERCISES CHIROPRAC 32838 BAKAIR BAKARI TIC 4 RANDY RANDY MANIPULAT ROSS TX SPINAL 3-4 REGIONS CHIROPRAC 31267 BAKARI BAKARI TIC 4 RANDY RANDY MANIPULAT ROSS TX SPINAL 3-4 REGIONS APPL 43613 BAKARI BAKARI MODALITY 4 RANDY RANDY 1/> AREAS TRACTION MECHANICA L THERAPEUT 78169 [place]AK[place] IC PX 1/> 4 RANDY RANDY AREAS EACH 15 MIN EXERCISES THERAPEUT 86425 BAKARI BAKARI IC PX 1/> 4 RANDY RANDY AREAS EACH 15 MIN EXERCISES CHIROPRAC 00826 BAKARI BAKARI TIC 4 RANDY RANDY MANIPULAT ROSS TX SPINAL 3-4 REGIONS CHIROPRAC 96515 BAKARI BAAKRI TIC 4 RANDY RANDY MANIPULAT ROSS [place] SPINAL 3-4 REGIONS THERAPEUT 57630 BAKARI BAKARI IC PX 1/> 4 RANDY RANDY AREAS EACH 15 MIN EXERCISES RADEX 57486 [place] RICHARDSO FOOT 4 FOOT & N SHABNAM COMPLETE ANKLE CE MINIMUM 3 VIEWS THERAPEUT 42358 BAKARI BAKARI IC PX 1/> 4 RANDY RANDY AREAS EACH 15 MIN EXERCISES CHIROPRAC 69724 BAKARI BAKARI TIC 4 RANDY RANDY MANIPULAT ROSS TX SPINAL 3-4 REGIONS CHIROPRAC 06640 BAKARI BAKARI TIC 4 RANDY RANDY MANIPULAT ROSS TX SPINAL 3-4 REGIONS THERAPEUT 50581 BAKARI BAKARI IC PX 1/> 4 RANDY RANDY AREAS EACH 15 MIN EXERCISES THERAPEUT 62710 BAKARI BAKARI IC PX 1/> 4 RANDY RANDY AREAS EACH 15 MIN EXERCISES CHIROPRAC 76886 BAKARI BAKARI TIC 4 RANDY RANDY MANIPULAT [place] SPINAL 3-[address] [place] [address] [facility] ABDOMEN & 4 MEDICAL EDIS PELVIS IMAGING W/O ASS CONTRAST MATERIAL THERAPEUT 68863 BAKARI BAKARI IC PX 1/> 4 RANDY RANDY AREAS EACH 15 MIN EXERCISES CHIROPRAC 25583 BAKARI BAKARI TIC 4 RANDY RANDY MANIPULAT ROSS TX SPINAL 3-4 REGIONS CHIROPRAC 73559 BAKARI BAKARI TIC 4 RANDY RANDY MANIPULAT ROSS TX SPINAL 3-4 REGIONS THERAPEUT 34613 BAKARI BAKARI IC PX 1/> 4 RANDY RANDY AREAS EACH 15 MIN EXERCISES THERAPEUT 49059 BAKARI BAKARI IC PX 1/> 4 RANDY RANDY AREAS EACH 15 MIN EXERCISES CHIROPRAC 08010 BAKARI BAKARI TIC 4 RANDY RANDY MANIPULAT ROSS [place] SPINAL 3-4 REGIONS CHIROPRAC 76886 BAKARI BAKARI TIC 4 RANDY RANDY MANIPULAT ROSS TX SPINAL 3-4 REGIONS THERAPEUT 82905 BAKARI BAKARI IC PX 1/> 4 RANDY RANDY AREAS EACH 15 MIN EXERCISES THERAPEUT 48638 BAKARI BAKARI IC PX 1/> 4 RANDY RANDY AREAS EACH 15 MIN EXERCISES CHIROPRAC 78967 BAKARI BAKARI TIC 4 RANDY RANDY MANIPULAT ROSS [place] SPINAL 3-4 REGIONS CHIROPRAC 48288 BAKARI BAKARI TIC 4 RANDY RANDY MANIPULAT ROSS TX SPINAL 3-4 REGIONS THERAPEUT 62808 BAKARI BAKARI IC PX 1/> 4 RANDY RANDY AREAS EACH 15 MIN EXERCISES THERAPEUT 14206 BAKARI BAKARI IC PX 1/> 4 RANDY RANDY AREAS EACH 15 MIN EXERCISES CHIROPRAC 20684 BAKARI BAKARI TIC 4 RANDY RANDY MANIPULAT ROSS TX SPINAL 3-4 REGIONS CHIROPRAC 02037 BAKARI BAKARI TIC 4 RANDY RANDY MANIPULAT ROSS TX SPINAL 3-4 REGIONS THERAPEUT 96529 BAKARI BAKARI IC PX 1/> 4 RANDY RANDY AREAS EACH 15 MIN EXERCISES 88682 [place] TRANSVAGI 4 DANIKA DANIKA NAL THERAPEUT 08533 BAKARI BAKARI IC PX 1/> 4 RANDY RANDY AREAS EACH 15 MIN EXERCISES CHIROPRAC 25732 BAKARI BAKARI TIC 4 RANDY RANDY MANIPULAT ROSS TX SPINAL 3-4 REGIONS CHIROPRAC 16637 BAKARI BAKARI TIC 4 RANDY RANDY MANIPULAT ROSS [place] SPINAL 3-4 REGIONS THERAPEUT 62847 BAKARI BAKARI IC PX 1/> 4 RANDY RANDY AREAS EACH 15 MIN EXERCISES THERAPEUT 70364 BAKARI BAKARI IC PX 1/> 4 RANDY RANDY AREAS EACH 15 MIN EXERCISES CHIROPRAC 53239 BAKARI BAKARI TIC 4 RANDY RANDY MANIPULAT ROSS [place] SPINAL 3-4 REGIONS APPL 77659 BAKARI BAKARI MODALITY 4 RANDY RANDY 1/> AREAS TRACTION MECHANICA L APPL 12366 BAKARI BAKARI MODALITY 4 RANDY RANDY 1/> AREAS TRACTION MECHANICA L CHIROPRAC 45910 BAKARI BAKARI TIC 4 RANDY RANDY MANIPULAT ROSS TX SPINAL 3-4 REGIONS URINE 28610 MARCO LARA 4 DANIKA DANIKA TEST VISUAL COLOR CMPRSN METHS THERAPEUT 21126 BAKARI BAKARI IC PX 1/> 4 RANDY RANDY AREAS EACH 15 MIN EXERCISES GONADOTRO 05555 HYACINTH CL[facility]OS PIN [facility] QUALITATI VE THERAPEUT 09617 BAKARI BAKARI IC PX 1/> 4 RANDY RANDY AREAS EACH 15 MIN EXERCISES CHIROPRAC 92034 BAKARI VILLEGAS TIC 4 RANDY RANDY MANIPULAT ROSS TX SPINAL 3-4 REGIONS APPL 79612 BAKARI VILLEGAS MODALITY 4 RANDY RANDY 1/> AREAS TRACTION MECHANICA L APPL 33131 BAKARI VILLEGAS MODALITY 4 RANDY RANDY 1/> AREAS TRACTION MECHANICA L CHIROPRAC 56855 BAKARI VILLEGAS TIC 4 RANDY RANDY MANIPULAT ROSS [place] SPINAL 3-4 REGIONS THERAPEUT 04594 BAKARI VILLEGAS IC PX 1/> 4 RANDY RANDY AREAS EACH 15 MIN EXERCISES CHIROPRAC 91552 BAKARI VILLEGAS TIC 4 RANDY RANDY MANIPULAT ROSS TX SPINAL 3-4 REGIONS APPL 50722 BAKARI VILLEGAS MODALITY 4 RANDY RANDY 1/> AREAS TRACTION MECHANICA L 25 47637 COMBINED COMBINED HYDROXY 4 PHYSICIAN PHYSICIAN INCLUDES S LA S LA FRACTIONS IF PERFORMED GENERAL 33043 COMBINED COMBINED HEALTH 4 PHYSICIAN PHYSICIAN PANEL S LA S LA CYANOCOBA 73599 COMBINED COMBINED SCOOTER 4 PHYSICIAN PHYSICIAN VITAMIN S LA S LA B-12 LIPID 55278 COMBINED COMBINED PANEL 4 [place] [address] COMBINED COMBINED FREE 4 PHYSICIAN PHYSICIAN THYROXINE S LA S LA SEDIMENTA 67643 COMBINED COMBINED TION RATE 4 PHYSICIAN PHYSICIAN RBC S LA S LA NON-AUTOM ATED BLOOD 10896 COMBINED COMBINED COUNT 4 PHYSICIAN PHYSICIAN RETICULOC S LA S LA YTE AUTOMATED IRON 92046 COMBINED COMBINED BINDING 4 PHYSICIAN PHYSICIAN CAPACITY S LA S LA DETERMINA 10111 SHAUN DUNN TION 4 GRE GRE REFRACTIV E STATE OPHTH 93198 SHAUN DUNN MEDICAL 4 GRE GRE XM&EVAL COMPRHNSV ESTAB PT 1/> IADNA 79808 PICKLESIM PICKLESIM NEISSERIA 4 ER JR SUMIT ER JR SUMIT GONORRHOE AE AMPLIFIED PROBE TQ CYTP C/V 63599 PICKLESIM PICKLESIM AUTO THIN 4 ER JR SUMIT ER JR SUMIT LYR PREPJ SCR MNL RESCR PHYS IADNA 71421 PICKLESIM PICKLESIM CHLAMYDIA 4 ER JR SUMIT ER JR SUMIT TRACHOMAT IS AMPLIFIED PROBE TQ INFLUENZA Q2038 [facility] VACC 4 [facility] SPLIT VIRUS 3 YRS & > IM FLUZONE ADMINISTR G0008 O[facility]A DOBSON ATION OF 4 [facility] INFLUENZA VIRUS VACCINE WRIST L3908 [facility] HAND 3 ORTHOSIS EXT CONTROL COCK-UP PREFAB RADEX 84387 GINGER GINGER HAND 3 EDIS ED[place] MINIM[place] [address] [place] [address] GINGER GINGER ABDOMEN & 3 EDIS EDIS [place]EL[place] [address] [facility] ABDOMINAL 3 [facility] REAL [place] TIME W/[place] [address] [facility] TRANSVAGI 3 DANIKA [place] PREG 56519 [facility] L[facility] UTERUS 3 DANIKA DANIKA REAL TIME W/IMAGE DCMTN TRANSVAG URINE 03490 [facility] LARA 3 DANIKA DANIKA TEST VISUAL COLOR CMPRSN METHS GONADOTRO 01088 [facility] PIN 3 [facility] CHORIONIC INC INC QUANTITAT ROSS GONADOTRO 23103 [facility] PIN 3 [facility] CHORIONIC INC [place]IT[place] PREG 71876 [facility] UTERUS 3 [facility] REAL TIME INC INC W/IMAGE DCMTN TRANSVAG URNLS DIP 50723 [facility] 3 [facility] STICK/TAB INC INC LET REAGENT AUTO MICROSCOP Y URINE 31266 [facility] 3 [facility] TEST INC INC VISUAL COLOR CMPRSN METHS COMPREHEN 67021 [facility] SIVE 3 [facility] METABOLIC INC INC PANEL CULTURE 85479 HYACINTH RAM BACTERIAL 3 [facility] LIS INC QUANTTATI VE COLONY COUNT URINE BLOOD 73468 [facility] COUNT 3 [facility] COMPLETE INC INC AUTO&AUTO DIFRNTL WBC COMPREHEN 47197 [facility] SIVE 3 [facility] METABOLIC INC INC PANEL HEMOGLOBI 05915 [facility] N 3 [facility] GLYCOSYLA INC INC ASUNCION A1C OPHTH 14205 [facility] 3 GRE GRE XM&EVAL COMPRHNSV ESTAB PT 1/> DETERMINA 89327 SHAUN DUNN TION 3 GRE GRE REFRACTIV E STATE URNLS DIP 47361 [facility] 3 [facility] STICK/TAB INC INC LET REAGENT AUTO MICROSCOP Y URINE 07733 [facility] 3 [facility] TEST INC INC VISUAL COLOR CMPRSN METHS URNLS DIP 42300 LARA LARA 2 DANIKA DANIKA STICK/TAB LET RGNT NON-AUTO W/O MICRSCP CYTP C/V 47908 PICKLESIM PICKLESIM AUTO THIN 2 ER JR SUMIT ER JR SUMIT LYR PREPJ SCR MNL RESCR PHYS THERAPEUT 33843 [facility] IC PX 1/> 2 [facility] AREAS INC INC EACH 15 MIN EXERCISES APPL 84448 [facility] MODALITY 2 [facility] 1/> AREAS INC INC ELEC STIMJ UNATTENDE D APPLICATI 41657 [facility] ON 2 [facility] MODALITY INC INC 1/> AREAS HOT/COLD PACKS APPLICATI 20169 [facility] ON 2 [facility] MODALITY INC INC 1/> AREAS HOT/COLD PACKS APPL 91178 [facility] MODALITY 2 [facility] 1/> AREAS INC INC ELEC STIMJ UNATTENDE D THERAPEUT 49105 [facility] IC PX 1/> 2 [facility] AREAS INC INC EACH 15 MIN EXERCISES APPL 87800 [facility] MODALITY 2 [facility] 1/> AREAS INC INC ELEC STIMJ EA 15 MIN THERAPEUT 34329 [facility] IC PX 1/> 2 [facility] AREAS INC INC EACH 15 MIN EXERCISES APPL 74584 [facility] MODALITY 2 [facility] 1/> AREAS INC INC ELEC STIMJ UNATTENDE D APPLICATI 32032 [facility] ON 2 [facility] MODALITY INC INC 1/> AREAS HOT/COLD PACKS GENERAL 20408 COMBINED COMBINED HEALTH 2 PHYSICIAN PHYSICIAN PANEL S LA S LA LIPID 30616 COMBINED COMBINED PANEL 2 PHYSICIAN PHYSICIAN S LA S LA SEDIMENTA 43820 COMBINED COMBINED TION RATE 2 PHYSICIAN PHYSICIAN [place] [address] COMBINED COMBINED THYROXINE 2 PHYSICIAN PHYSICIAN TOTAL S LA S LA THYROID 06352 COMBINED COMBINED HORM 2 PHYSICIAN PHYSICIAN UPTK/THYR S LA S LA OID HORMONE BINDING RATIO PHYSICAL 85137 HYACINTH HYACINTH THERAPY 2 [facility] HOSP EVALUATIO INC INC N 23912 [place] L[place] TRANSVAGI 2 DANIKA DANIKA NAL ORGANIC 04622 [facility] ACID 1 2 [facility] ROSS HEMOGLOBI 92063 [facility] 2 [facility] ASUNCION A1C GENERAL [address] [place] [address] [facility] HOMOCYSTE 2 [facility] NRV [facility] 80382 GUILLEN ANTONINO GUILLEN ANTONINO AMPLT&LAT 2 ENCY EA NRV MOTOR W/F-WAVE STD NRV [facility] 66215 GUILLEN ANTONINO GUILLEN ANTONINO AMPLITUDE 2 & LATENCY EACH NERVE SENSORY COLLECTIO 78209 [facility] VENOUS 2 [facility] VENIPUNCT URE CYANOCOBA 25954 [facility] SCOOTER [address] [place] [address] B-12 REMOVAL 59303 [facility] NON-BIODE 2 DANIKA DANIKA GRADABLE DRUG DELIVERY IMPLANT NEEDLE 69947 JONES TRA JONES TRA EMG EA 2 EXTREMTY W/PARASPI NL AREA COMPLETE NRV CNDJ 72652 JONES TRA JONES TRA AMPLT&LAT 2 ENCY EA NRV MOTOR W/F-WAVE STD NRV D 38284 JONES TRA JONES TRA AMPLITUDE 2 & LATENCY EACH NERVE SENSORY MRI 41706 JONES TRA JONES TRA SPINAL 2 CANAL CERVICAL W/O CONTRAST MATRL RADEX 45213 JONES TRA JONES TRA SPINE 2 CERVICAL 2 OR 3 VIEWS RADEX 13543 JONES TRA JONES TRA SPINE 2 THORACIC 2 VIEWS CUL BACT 41313 [facility] STOOL 2 [facility] AEROBIC INC INC ISOL SALMONELL A&[place] [address] [facility] CLOSTRIDI 2 [facility] [place] [address] [facility] GIARDIA 2 [facility] INC INC OVA&THUAN 38651 [facility] ITES 2 [facility] DIRECT INC INC SMEARS CONCENTRA TION & ID DRUG SCR G0434 [facility] NOT 2 CHROMATOG RAPHIC; ANY NUMBER PT ENC ANES 15277 [facility] LOWER 2 ANESTH INTESTINE OF THE [place] [address] PATHOLOGY WILFRID PAT SURG 2 & PATHOLOGY CYTOLOGY LAB GROSS&[place] [address] [facility] INFUSION 2 [facility] THERAPY/P INC INC ROPHYLAXI S /DX 1ST TO 1 HR BLOOD 64268 [facility] COUNT 2 [facility] COMPLETE INC INC AUTO&AUTO DIFRNTL WBC EGD 85205 ADEOLA ANT ADEOLA ANT TRANSORAL 2 BIOPSY SINGLE/MU LTIPLE CUL 39261 [facility] PRSMPTV 2 [facility] PTHGNC INC INC ORGANISMS SCR DNS CHART SPECIAL 41101 PATHOLOGY WILFRID PAT STAIN 2 & GROUP 1 CYTOLOGY MICROORGA LAB NISMS I&R SPCL STN 97190 PATHOLOGY WILFRID PAT 2 I&R 2 & EXCPT CYTOLOGY MICROORG/ LAB ENZYME/IM CYT COLONOSCO 46783 ADEOLA ANT ADEOLA ANT PY 2 W/BIOPSY SINGLE/MU LTIPLE COLSC FLX 94679 ADEOLA ANT ADEOLA ANT W/RMVL 2 [place] [address] [facility] ABDOMEN & 2 MEDICAL EDIS PELVIS IMAGING W/O ASS CONTRAST MATERIAL URNLS DIP 04037 [facility] 2 [facility] STICK/TAB INC INC LET [place] [address] [facility] LIPASE 2 [place] [address] [facility] AMYLASE 2 [facility] INC INC COMPREHEN 30058 [facility] SIVE 2 [facility] METABOLIC INC INC PANEL URINE 73661 [facility] 2 [facility] TEST INC [place] [address] [facility] INFUSION 2 [facility] THERAPY INC INC PROPHYLAX IS/[place] [address] [facility] ABDOMEN & 2 [facility] PELVIS INC INC W/O CONTRAST MATERIAL URNLS DIP 96000 OAKES OAKES 2 LC LC STICK/TAB LET RGNT NON-AUTO W/O MICRSCP DRUG SCR G0434 [facility] ABDI NOT 1 CHROMATOG RAPHIC; ANY NUMBER PT ENC PRESSURIZ 18771 [facility] ED/NONPRE 1 [facility] SSURIZED INC INC INHALATIO N TREATMENT RADIOLOGI 96971 [facility] C EXAM 1 MEDICAL EDIS CHEST 2 IMAGING VIEWS ASS FRONTAL&L ATERAL INJECTION 58105 [facility] BRAVO HAM 1 SINGLE/ML T TRIGGER POINT 3/> MUSCLES FLUOR 53207 [facility]ENCEKURT BRAVO HAM NEEDLE/CA 1 TH SPINE/PAR ASPINAL DX/THER ADDON NJX 29833 [facility] BRAVO HAM DX/THER 1 SBST EPIDURAL/ SUBARACH LUMBAR/SA CRAL OPHTH 96286 JIMMIE SCIFRES MEDICAL 1 VISION ANG XM&EVAL COMPRE NEW PT 1/> VST MRI 94402 NEURODIAG T[place]OW SPINAL 1 NOSTICPSC ROL CANAL LUMBAR W/O CONTRAST MATERIAL RADEX 40027 [facility] JARVIS SPINE 1 [place] LC LUMBOSACR ORTHOPAED AL 2/3 [facility]CS [facility] VIEWS PRESSURIZ 88222 [facility] ED/NONPRE 1 [facility] SSURIZED INC INC INHALATIO N TREATMENT US BREAST 71085 PAYAL MILES REAL 1 MEDICAL EDIS TIME IMAGING W/[place] [address] CHIPPS KIRK ANNA SURG 1 KIAH & PATHOLOGY DUBILIER GROSS&ANNA ROSCOPIC EXAM HYSTEROSC 35624 [facility] OPY BX 1 [facility] ENDOMETRI INC INC UM&/POLYP C W/WO D&C HYSTEROSC 6812 [facility] OPY 1 [facility] INC INC OTHER 6909 [facility] DILATION 1 [facility] AND INC INC CURETTAGE OF UTERUS ANES 11923 [facility] HYSTEROSC 1 ANESTH ADRIANA OPY&/HYST OF THE EROSALPIN BLUE GOGRAPHY W/[place] [address] [facility] INFUSION 1 [facility] THERAPY INC INC PROPHYLAX IS/DX EA HOUR GONADOTRO 36730 [facility] PIN 1 [facility] CHORIONIC INC INC QUALITATI VE BLOOD 65396 [facility] COUNT 1 [facility] COMPLETE INC INC AUTO&[place] [address] [facility] TRANSVAGI 1 [facility] NAL [facility] CYTP C/V 55581 PATHOLOGY PATHOLOGY AUTO THIN 0 & & LYR CYTOLOGY CYTOLOGY PREPJ SCR LAB LAB MNL RESCR PHYS IADNA 85780 PATHOLOGY PATHOLOGY NEISSERIA 0 & & CYTOLOGY CYTOLOGY GONORRHOE LAB LAB AE AMPLIFIED PROBE TQ IADNA 03821 PATHOLOGY PATHOLOGY CHLAMYDIA 0 & & CYTOLOGY CYTOLOGY TRACHOMAT LAB LAB IS AMPLIFIED PROBE TQ ETONOGEST J7307 [facility] REL 0 [facility] CNTRACPT CLINIC OF IMPL SYS [place] INCL IMPL & SPL INSERTION 18876 [facility] 0 [facility] IMPLANTAB [facility] [place] CONTRACEP TIVE CAPSULES URINE 49644 [facility] 0 [facility] TEST CLINIC OF VISUAL [place] COLOR CMPRSN METHS URINE 47419 [facility] 0 [facility] TEST INC INC VISUAL COLOR CMPRSN METHS RADIOLOGI 70101 Imer MONTAGUE EXAM 0 MEDICAL RANI Pierson CHEST 2 IMAGING VIEWS ASSOCIATE FRONTAL&L S ATERAL LEVONORGE J7302 [facility], STREL-RLS [facility] INTRA[facility]ER N [place] [facility] 52 MG INSERTION 37095 [facility], 9 [facility] J INTRAUTER CLINIC OF INE DEVICE [place] IUD PLLC URINE 57484 [facility], [facility] TEST [facility] OF VISUAL COLOR [place] CMPRSN PLLC METHS COMPREHEN 36809 [facility] SIVE 9 [facility] METABOLIC INC INC PANEL CYTP C/V 41296 PATHOLOGY PATHOLOGY AUTO THIN 9 & & LYR CYTOLOGY CYTOLOGY PREPJ SCR LAB LAB MNL RESCR PHYS BLOOD 08772 [facility] COUNT 9 [facility] COMPLETE INC INC AUTO&AUTO DIFRNTL WBC [facility]OSP[facility] 75686 [facility], DISCHARGE 9 CARE [facility] DAY ASSOCIATE MANAGEMEN S T 30 MIN/< CIRCUMCIS 34957 [facility] 9 [facility] W/CLAMP/O ASSOCIATE TH DEV S W/BLOCK SUBQ [address] PER ASSOCIATE DAY E/M S NORMAL SUBQ 80387 [facility] 9 [facility] CARE PER ASSOCIATE DAY E/M S NORMAL 57687 [facility], DELIVERY 9 [facility] CLINIC OF W/POSTPAR IVAN CARE [place] PLLC LOW 741 [facility] CERVICAL 9 [facility] INC INC SECTION 16159 KING CARIAS, DELIVERY 9 ARETHA HERNANDEZ ANESTHESI 64757 [facility] MCDANIEL 9 ANESTH LESLEY F OF THE DELIVERY [facility] ONLY 1ST 64701 FAMILY NIKITA, HOSP/JIMBO 9 CARE R CHRISTINE MILLARD [facility] [place] [place] [address] [facility], 9 [facility] J UTERUS CLINIC OF LIMITED 1/> [place] FETUSES [facility] DOPPLER 49084 [facility], VELOCIMET 9 [facility] J RY CLINIC OF UMBILICAL ARTERY [place] [facility] 15948 [facility], BIOPHYSIC 9 [facility] J AL CLINIC OF PROFILE W/O [place] NON-STRES [facility] S TESTING 56797 [facility], BIOPHYSIC 9 [facility] J AL CLINIC OF PROFILE W/O [place] NON-STRES [facility] S TESTING DOPPLER 46571 [facility], VELOCIMET 9 [facility] J RY [facility] OF UMBILICAL ARTERY [place] [facility] [place] PREG 81733 [facility], UTERUS 9 [facility] J REAL TIME CLINIC OF F/U TRNSABDL [place] [address] [facility], 9 [facility] J UTERUS CLINIC OF LIMITED 1/> [place] FETUSES [facility] DOPPLER 18085 [facility], VELOCIMET 9 [facility] J RY [facility] UMBILICAL ARTERY [place] [facility] 23099 [facility], BIOPHYSIC 9 [facility] J AL CLINIC OF PROFILE W/O [place] NON-STRES [facility] S TESTING 34029 [facility], BIOPHYSIC 9 [facility] J AL CLINIC OF PROFILE W/O [place] NON-STRES [facility] S TESTING BASIC 54314 [facility] SORIANO 9 [facility] PANEL INC INC CALCIUM TOTAL DOPPLER 84971 [facility], VELOCIMET 9 [facility] J RY CL[facility] OF UMBILICAL ARTERY [facility] [facility] TRANSFERA 06039 [facility] SE 9 [facility] ASPARTATE INC INC AMINO AST SGOT TRANSFERA 60374 [facility] SE 9 [facility] ALANINE INC INC AMINO ALT SGPT FIBRIN 19501 [facility] DGRADJ 9 [facility] PRODUCTS INC INC D-DIMER QUAL/SEMI LACI FIBRINOGE 66193 [facility] N 9 [facility] ACTIVITY INC INC PROTHROMB 46929 [facility] IN TIME 9 [place] [address] [facility] BLOOD/URI 9 [facility] C ACID INC INC THROMBOPL 03572 [facility] ASTIN 9 [facility] TIME INC INC PARTIAL PLASMA/[place] B[place] 07138 [facility], UTERUS 9 [facility] J REAL TIME CLINIC OF F/U TRNSABDL [place] PER FETUS [facility] BLOOD 02570 [facility] COUNT 9 [facility] COMPLETE INC INC AUTO&AUTO DIFRNTL WBC OBSERVATI 50106 KING CARIAS, ON/INPATI 9 ARETHA Andrade [facility] CARE 55 MINUTES 04859 [facility] NONSTRESS 9 [facility] TEST INC INC URNLS DIP 86009 [facility] 9 [facility] STICK/TAB INC INC LET REAGENT AUTO MICROSCOP Y DOPPLER 70032 [facility], VELOCIMET 9 [facility] J RY CLINIC OF UMBILICAL ARTERY [place] [facility] 19757 [facility], BIOPHYSIC 9 [facility] [place] CLINIC OF PROFILE W/O [place] NON-STRES [facility] S TESTING BLD GLU A4253 [facility] TEST/REAG 9 PHARMACY PHARMACY T STRIPS #591 #591 HOME BLD GLU MON-50 [place] PREG 00298 [facility], UTERUS 9 [facility] J REAL TIME CLINIC OF F/U TRNSABDL [place] PER FETUS [facility] US PREG 31332 [facility], UTERUS 9 [facility] J REAL TIME CLINIC OF F/U TRNSABDL [place] PER FETUS [facility] CUL BACT 94957 COMBINED COMBINED XCPT 9 PHYSICIAN PHYSICIAN URINE S LAB S LAB BLOOD/STO OL AEROBIC ISOL 38770 [facility], BIOPHYSIC 9 [facility] J AL CLINIC OF PROFILE W/O [place] NON-STRES [facility] S TESTING DOPPLER 62126 [facility], VELOCIMET 9 [facility] J RY CLINIC OF UMBILICAL ARTERY [place] [facility] DOPPLER 44969 [facility], VELOCIMET 9 [facility] J RY CLINIC OF UMBILICAL ARTERY [place] [facility] 75101 [facility], BIOPHYSIC 9 [facility] J AL CLINIC OF PROFILE W/O [place] NON-STRES [facility] S TEST[place] PREG 79681 [facility], UTERUS 9 [facility] J REAL TIME CLINIC OF F/U TRNSABDL [place] PER FETUS [facility] US PREG 04921 [facility]TRAL UTERUS 9 MUSLIM MUSLIM REAL TIME HOSP HOSP F/U TRNSABDL PER FETUS CUL BACT 22789 COMBINED COMBINED XCPT 9 PHYSICIAN PHYSICIAN URINE S LAB S LAB BLOOD/STO OL AEROBIC ISOL ANTIBODY 86219 COMBINED COMBINED CHLAMYDIA 9 PHYSICIAN PHYSICIAN S LAB [place] P[place] 63804 [facility] UTERUS 9 MUSLIM MUSLIM REAL TIME HOSP HOSP F/U TRNSABDL PER FETUS RADIOLOGI 67640 [place] Imer TRIPLETT 9 MEDICAL RANI Pierson EXAMINATI IMAGING ON CHEST ASSOCIATE SINGLE S VIEW FRONTAL 30458 [facility], NONSTRESS 9 [facility] J TEST CLINIC OF [place] [facility] 43621 [facility], NONSTRESS 9 [facility] J TEST CLINIC OF [place] [facility] URNLS DIP 83906 [facility] CLAROS 9 [facility] STICK/TAB INC INC LET REAGENT AUTO [place]CROSCOP [place] P[place] 93411 [facility] UTERUS 9 MUSLIM MUSLIM REAL TIME HOSP HOSP F/U TRNSABDL PER FETUS BLD GLU A4253 [facility] TEST/REAG 8 PHARMACY PHARMACY T STRIPS #591 #591 HOME BLD GLU MON-50 US PREG 28509 [facility] UTERUS 8 MUSLIM MUSLIM W/DETAIL HOSP HOSP ANISH 1ST GESTATION DIAB G0109 [facility]EN[facility]AL [facility]TRAL SELF-MGMT 8 MUSLIM MUSLIM TRN [facility]VC HOSP HOSP GROUP SESSION PER 30 MIN URNLS DIP 87103 [facility]/CO HYACINTH [address] [place] [address] HEALTH STICK/TAB [facility]EN[facility]AL CENTER LET RGNT BANK ACCT NON-AUTO W/O MICRSCP ALPHA-FET 13302 [facility] OPROTEIN 8 [facility] [place] [address] [facility] ESTRIOL 8 [facility] GONADOTRO 19560 [facility] OF PIN 8 [facility] CHORIONIC QUANTITAT ROSS GLUC BLD 29975 [facility] GLUC MNTR [address] [place] [address] DEV [facility] CLEARED BANK ACCT FDA SPEC HOME USE URNLS DIP 61181 [facility]/CO HYACINTH [address] [place] [address] HEALTH STICK/TAB [facility]EN[facility]AL CENTER LET RGNT BANK ACCT NON-AUTO W/O MICRSCP CYTP 57844 [facility] CERV/VAG [address] [place] [address] AUTO THIN [facility] LAYER BANK ACCT PREP MNL SCREEN BLOOD 23894 [facility] TYPING 8 [facility] INC SEROLOGIC RH (D) ANTIBODY 16219 [facility] OF SCREEN [address] [place] [address] RBC EACH SERUM TECHNIQUE BLOOD 83739 [facility] TYPING [address] [place] [address] INC SEROLOGIC ABO IADNA 26814 [facility] NEISSERIA [address] [place] [address] CENTER GONORRHOE BANK ACCT [place] AM[place] [address] [facility] HEPATITIS [address] [place] [address] B CENTRAL CENTER SURFACE BANK ACCT ANTIGEN SYPHILIS 03047 [facility] TEST [address] [place] [address] NON-TREPO [facility] NEMAL BANK ACCT ANTIBODY QUAL COLLECTIO 14254 [facility] N VENOUS [address] [place] [address] BLOOD [facility] VENIPUNCT BANK ACCT URE IADNA 27202 [facility] CHLAMYDIA 8 [facility] TRACHOMAT BANK ACCT IS AMPLIFIED PROBE TQ ANTIBODY 54216 [facility] HY[facility] RUBELLA 8 [facility] BANK ACCT BLOOD 38168 [facility] COUNT 8 [facility] COMPLETE INC INC AUTO&AUTO DIFRNTL WBC CULTURE 03302 [facility] BACTERIAL 8 [facility] INC INC QUANTTATI [place] P[place] 79578 PAYAL UZIEL, UTERUS 8 MEDICAL RANI P REAL TIME IMAGING W/IMAGE ASSOCIATE DCMTN S TRANSVAG GONADOTRO 57340 [facility] PIN 8 [facility] CHORIONIC INC INC QUANTITAT ROSS URNLS DIP 97422 [facility] CL[facility] 8 [facility] STICK/TAB INC INC LET REAGENT AUTO MICROSCOP Y URNLS DIP 87136 [facility]OS 8 [facility] STICK/TAB INC INC [place] [address] [facility] LIPASE 8 [facility] INC INC [place] PREG 92018 [facility] UTERUS 8 [facility] REAL TIME INC INC W/IMAGE DCMTN TRANSVAG COMPREHEN 40282 [facility] SIVE 8 [facility] [place] [address] [facility] AMYLASE 8 [facility] INC INC URINE 22499 HYACINTH CLAROS 8 [facility] TEST INC INC VISUAL COLOR CMPRSN METHS CULTURE 94227 [facility] GARCIA[facility] BACTERIAL 8 [facility] QUANTTATI VE COLONY COUNT URINE BLOOD 44192 [facility] COUNT 8 [facility] COMPLETE INC INC AUTO&AUTO DIFRNTL WBC Encounters Encounter Start End Date Code Location Performer Type Date OFFICE 00353 [facility], 25 P MINUTES OFFICE 50002 JAQUELIN VILLEGAS OUTPATIEN 7 7 N FAMILY T VISIT CHIROPRAC 10 T MINUTES OFFICE 48675 [facility], 15 P MINUTES [facility] - 6 6 [facility] T OFFICE 86364 [facility] 6 [facility]ES [facility] 52514 [facility] JEANINE OUTPATIEN 6 6 PHYSICIAN T VISIT S GROUP 25 MINUTES OFFICE 70588 [facility]PATIEN 6 6 [facility] OFFICE 92941 [facility] ARANZA OUTPATIEN 6 6 [facility], 25 P MINUTES OFFICE 81791 [facility] 6 6 [facility]ES OFFICE 82832 [facility] DOBS[facility]PATIEN 6 6 [facility] - 6 6 [facility] T OFFICE 65644 [facility] DO[facility]PATIEN 6 6 [facility] 15 [facility]ES OFFICE 32766 [facility] SOB OUTPATIEN 6 6 [facility], 25 P MINUTES OFFICE 88206 WILLIEGORDON ARANZA WOLF OUTPATIEN 6 6 DIABETIC T VISIT 5 CENTER, MINUTES P OFFICE 48799 JAQUELIN VILLEGAS OUTPATIEN 6 6 N FAMILY RANDY T VISIT CHIROPRAC 10 T MINUTES OFFICE 52757 [facility] DOBSON [facility]PATIEN 6 6 [facility] 15 MINUTES OFFICE 98967 [facility] MARCO OUTPATIEN 6 6 PHYSICIAN DANIKA T VISIT S GROUP 15 MINUTES OFFICE 52801 [facility] DOBSON OUTPATIEN 6 6 [facility] 15 MINUTES OFFICE 09053 [facility] SOB OUTPATIEN 6 6 [facility], 15 P MINUTES EMERGENCY 24450 JUSTINA SANCHEZ 5 5 [facility] DEPARTMEN [facility], PLLC T VISIT HIGH/URGE NT SEVERITY OFFICE 33138 [facility] DBOSON [facility] 5 5 [facility] 15 MINUTES OFFICE 41855 JAQUELIN VILLEGAS OUTPATIEN 5 5 N FAMILY RANDY T VISIT CHIROPRAC 10 T MINUTES OFFICE 27515 [facility] WOLF OUTPATIEN 5 5 DI[facility] T VISIT CENTER, 25 P MINUTES OFFICE 77693 [facility] LARA OUTPATIEN 5 5 PHYSICIAN DANIKA T VISIT S GROUP 15 MINUTES EMERGENCY 44014 JUSTINA TELLEZ 5 5 [facility] MODERATE SEVERITY EMERGENCY 58843 [facility] 5 5 [facility] DEPART[facility] INC T VISIT LIMITED/M [facility] - 5 5 [facility] T [facility] - 5 5 [facility] - 5 5 [facility] - 5 5 [facility] OUTPATIEN INC T EMERGENCY 43263 [facility] 5 5 [facility] DEPARTMEN INC T VISIT MODERATE SEVERITY EMERGENCY 13329 JUSTINA SOLORZANO 5 5 PHYSICIAN ANNA [facility]/URGE NT SEVERITY [facility]OSPITAL [facility] - 5 5 [facility] T [facility] - 5 5 [facility] OUT[facility] INC T OFFICE 39490 [facility] PEDROZA OUTPATIEN 5 5 FOOT & N SHABNAM T VISIT ANKLE CE 15 MINUTES OFFICE 54779 [facility] DOBSON [facility]PATIEN 5 5 [facility] T [facility] 15 [facility]UTES OFFICE 50013 [place] [facility] OUTPATIEN 5 5 DIABETIC R TAR T VISIT CENTER 25 MINUTES EMERGENCY 05023 JUSTINA SOLORZANO 5 5 PHYSICIAN ANNA DEPARTMEN S, PLLC T VISIT MODERATE SEVERITY OFFICE 66525 [facility] SCHULSTAD OUTPATIEN 5 5 PHYSICIAN CAM T VISIT S GROUP 10 MINUTES HOSPITAL HYACINTH - 5 5 [facility] OUTPATIEN INC T OFFICE 72198 [facility] OJEDA OUTPATIEN 5 5 PHYSICIAN MARGOTH T VISIT S GROUP 15 MINUTES OFFICE 65489 [facility] SCHULSTAD OUTPATIEN 5 5 PHYSICIAN CAM T VISIT S GROUP 15 MINUTES EMERGENCY 46613 JUSTINA SOLORZANO 5 5 PHYSICIAN ANNA DEPARTMEN S, PLLC T VISIT HIGH/URGE NT SEVERITY OFFICE 79875 [facility] OJEDA OUTPATIEN 5 5 PHYSICIAN MARGOTH T VISIT S GROUP 15 MINUTES OFFICE 80934 [facility] OJEDA OUTPATIEN 5 5 PHYSICIAN MARGOTH T NEW 20 S GROUP MINUTES HOSPITAL HYACIN[facility] - 5 5 [facility] OUTPATIEN INC T EMERGENCY 36291 JUSTINA ULLOA 5 5 PHYSICIAN LINARES DEPARTMEN S, PLLC T VISIT HIGH/URGE NT SEVERITY OFFICE 76761 [facility]PAT[facility]EN 5 5 [facility] - 5 5 [facility] OUTPATIEN INC T OFFICE 51835 [facility] SOB OUTPATIEN 5 5 DIABET[facility] T VISIT CENTER, 25 P MINUTES OFFICE 37151 [facility] YMAN OUTPATIEN 5 5 PHYSICIAN EUG T VISIT S GROUP 10 MINUTES OFFICE 41993 [facility] JEANINE OUTPATIEN 5 5 PHYSICIAN ANNA T VISIT S GROUP 15 MINUTES OFFICE 74409 [facility] PAIZ OUTPATIEN 5 5 [facility] 15 MINUTES OFFICE 05277 MATEO FRANCOSTUARTLeticia WOLF OUTPATIEN 5 5 [facility] [address]ES [address] PEDROZA OUTPATINICHOLAS 5 5 DANIEL Leon SHABNAM T VISIT MIRTA 15 DPM PSC MINUTES OFFICE 92834 OLYA DOBSON [facility]PATIEN 5 5 [facility] - 5 5 [facility] - 5 5 [facility] T OFFICE 28893 [facility] OUTPATIEN 5 5 HEALTH AYAD T VISIT MEDICAL 40 GROUP MINUTES OFFICE 90825 JAQUELIN VILLEGAS OUTPATIEN 5 5 N FAMILY RANDY T VISIT CHIROPRAC 10 T MINUTES OFFICE 03192 [facility] MARCO OUTPATIEN 4 4 PHYSICIAN DANIKA T VISIT S GROUP 15 MINUTES OFFICE 82744 OLYA DOBSON OUTPATIEN 4 4 [facility] T VISIT 15 MINUTES OFFICE 18528 [facility] JONES TRA OUTPATIEN 4 4 [place] V[facility]OP[facility]ED [facility] MINUTES OFFICE 73576 [facility] CONSULTAT 4 4 NEUROLOGY AYAD ION NEW/ESTAB CONSULTAN PATIENT T 60 MIN OFFICE 18456 [facility] SHANEPATIEN 4 4 PHYSICIAN T VISIT S GROUP 25 MINUTES OFFICE 35299 OLYA DOBSON OUTNATALIE 4 4 [facility] T VISIT 15 MINUTES OFFICE 25962 [facility] JONES TRA OUTPATIEN 4 4 [place] VISIT [facility]OP[facility]ED [facility] MINUTES OFFICE 79765 OLYA PAL 4 4 [facility] T VISIT 15 MINUTES EMERGENCY 46839 [facility] 4 4 TRUDI DEPARTMEN EMERGENCY T VISIT PHYS HIGH/URGE NT SEVERITY OFFICE 83995 MATEO PEDROZA OUTPATIEN 4 4 FOOT & N SHABNAM T VISIT ANKLE CE 15 MINUTES OFFICE 02007 JONES TRA JONES TRA OUTPATIEN 4 4 T VISIT 15 MINUTES OFFICE 46477 MATEO HAZELSO OUTPATIEN 4 4 FOOT & N SHABNAM T NEW 30 ANKLE CE MINUTES OFFICE 70770 OLYA LYNNPATIEN 4 4 [facility] T VISIT 15 MINUTES OFFICE 13390 BAKARI VILLEGAS OUTPATIEN 4 4 RANDY RANDY T VISIT 10 MINUTES EMERGENCY 09686 JEANINE SOLORZANO 4 4 ANNA ANNA DEPARTMEN T VISIT HIGH/URGE NT SEVERITY OFFICE 92907 OLYA DOBSON OUTPATIEN 4 4 [facility] T [facility]IS[facility] 15 MINUTES OFFICE 96241 BAKARI VILLEGAS OUTPATIEN 4 4 RANDY RANDY T VISIT 10 MINUTES OFFICE 06387 BAKARI VILLEGAS OUTPATIEN 4 4 RANDY RANDY T VISIT 10 MINUTES OFFICE 07368 [facility] OUTPATI[facility] 4 4 DANIKA DANIKA T VISIT 15 MINUTES HOSPITAL HYACINTH - 4 4 [facility] T OFFICE 40341 BAKARI VILLEGAS OUTPATIEN 4 4 RANDY RANDY T NEW 30 MINUTES OFFICE 65407 OLYA PAL 4 4 [facility] T VISIT 15 MINUTES OFFICE 59840 OLYA DOBSON OUTPATIEN 4 4 [facility] T VISIT 15 MINUTES OFFICE 60509 OLYA DOBSON OUTPATINICHOLAS 4 4 [facility] T VISIT 15 MINUTES PERIODIC 28398 [facility] PREVENTIV 4 4 DANIKA DANIKA E MED EST PATIENT 18-39 YRS OFFICE 54755 OLYA DOBSON OUTPATIEN 3 3 [facility] T VISIT 15 MINUTES EMERGENCY 25302 [facility] N[facility]T 3 3 DEPARTMEN T VISIT MODERATE SEVERITY OFFICE 11-27-201 11-27-201 00537 ADEOLA VILLALTA ADEOLA ANT OUTPATIEN 3 3 T VISIT 15 MINUTES OFFICE 16621 OLYA DOBSON OUTPATIEN 3 3 [facility] T VISIT 15 MINUTES EMERGENCY 35738 JEANINE SOLORZANO 3 3 ANNA ANNA DEPARTMEN T VISIT HIGH/URGE NT SEVERITY [facility]OSPITAL [facility] - 3 3 [facility] T OFFICE 80785 ADEOLA ANT ADEOLA ANT OUTPATIEN 3 3 T VISIT 25 MINUTES OFFICE 67141 WILMER MUÑIZ OUTPATIEN 3 3 T VISIT 25 MINUTES HOSPITAL HAYCINTH - 3 3 [facility] OUTPATIEN INC T EMERGENCY 79594 LUZ ESCOBAR DEPT 3 3 III FIDE III FIDE VISIT HIGH SEVERITY& THREAT [facility] EMERGENCY 64475 HYACINTH 3 3 [facility] DEPARTMEN INC T VISIT MODERATE SEVERITY HOSPITAL HYACINTH - 3 3 [facility] OUTPATIEN INC T OFFICE 81386 NITESHVICKEY OLYA REIDEN 3 3 [facility] T VISIT 15 MINUTES OFFICE 03599 NITESHVICKEY OLYA PAL 3 3 [facility] T VISIT 15 MINUTES OFFICE 81830 GUILLEN ANTONINO MUÑIZ OUTPATIEN 3 3 T VISIT 15 MINUTES HOSPITAL HYACINTH - 3 3 [facility]PATIEN INC T OFFICE 28622 ADEOLA ANT ADEOLA ANT OUTPATIEN 3 3 T VISIT 25 MINUTES EMERGENCY 30433 SHAUN RASHID DEPT 3 3 EMERGENCY FIDE VISIT SERVICES HIGH SEVERITY& THREAT [facility] HOSPITAL HYACINTH - 3 3 [facility] OUTPATIEN INC T EMERGENCY 67575 [facility]ACIN[facility] 3 3 [facility] DEPARTMEN INC T VISIT LOW/MODER SEVERITY OFFICE 68810 WILMER GUILLEN ANTONINO OUTPATIEN 2 2 T VISIT 15 MINUTES OFFICE 88340 OLYA DOBSON OUTPATIEN 2 2 [facility] T VISIT 15 MINUTES OFFICE 64204 OLYA DOBSON OUTPATIEN 2 2 [facility] T VISIT 15 MINUTES OFFICE 72827 ADEOLA ANT ADEOLA ANT OUTPATIEN 2 2 T VISIT 15 MINUTES PERIODIC 56010 [facility] PREVENTIV 2 2 DANIKA DANIKA E MED EST PATIENT 18-39 YRS OFFICE 34379 [facility] OUTPATIEN 2 2 [facility] SLEEP T VISIT AND REHA 10 MINUTES HOSPITAL HYACINTH - 2 2 [facility] T OFF[facility] 37873 WILMER MUÑIZ WILMER MUÑIZ OUTPATIEN 2 2 T VISIT 25 MINUTES OFFICE 95786 OLYA OLYA OUTPATIEN 2 2 [facility] T [facility]ES [facility] HYACINTH - 2 2 [facility] T OFF[facility] 94808 [facility] OUTPATIEN 2 2 DANIKA DANIKA T VISIT 15 MINUTES OFFICE 86309 OLYA DOBSON OUTPATIEN 2 2 [facility] T VISIT 15 MINUTES OFFICE 19445 COMMONWEA HILARIO II OUTPATIEN 2 2 [facility] SLEEP VINCENT T NEW 30 AND REHA MINUTES OFFICE 44319 OLYA DOBSON OUTPATIEN 2 2 [facility] T VISIT 15 MINUTES OFFICE 92417 [facility] OUTPATIEN 2 2 DANIKA DANIKA T VISIT 25 MINUTES HOSPITAL BOURBON - 2 2 [facility] T OFFICE 81072 GUILLEN ANTONINO MUÑIZ OUTPATIEN 2 2 T NEW 45 MINUTES OFFICE 34017 ADEOLA ANT ADEOLA ANT OUTPATIEN 2 2 T VISIT 25 MINUTES OFFICE 54492 SAMARIA MERA LANI OUTPATIEN 2 2 T NEW 30 MINUTES OFFICE 33173 SAMARIA MERA LANI CONSULTAT 2 2 ION NEW/ESTAB PATIENT 40 MIN OFFICE 55073 JONES TRA JONES TRA OUTPATIEN 2 2 T VISIT 15 MINUTES OFFICE 36855 JONES TRA JONES TRA OUTPATIEN 2 2 T VISIT 10 MINUTES OFFICE 01602 JONES TRA JONES TRA OUTPATIEN 2 2 T VISIT 15 MINUTES OFFICE 45250 OLYA DOBSON OUTPATIEN 2 2 [facility] T VISIT 15 MINUTES [facility] HYAC[facility] - 2 2 [facility] T OFFICE 40612 [facility] OUTPATIEN 2 2 T VISIT 15 MINUTES OFFICE 22496 ADEOLA ANT ADEOLA ANT OUTPATIEN 2 2 T VISIT 25 MINUTES OFFICE 70862 [facility] OUTPATIEN 2 2 T VISIT 15 MINUTES EMERGENCY 20882 [facility]AC[facility] 2 2 [facility] DEPARTMEN INC T VISIT MODERATE SEVERITY EMERGENCY 33844 SHAUN HOLLAND DEPT 2 2 EMERGENCY VISIT SERVICES HIGH SEVERITY& THREAT [facility] HYACINTH - 2 2 [facility] OUTPATIEN INC T OFFICE 92037 ADEOLA ANT ADEOLA ANT OUTPATIEN 2 2 T NEW 45 MINUTES OFFICE 49713 JEANINE SOLORZANO OUTPATIEN 2 2 ANNA ANNA T NEW 20 MINUTES OFFICE 24581 [facility] 2 2 T VISIT 15 MINUTES HOSPITAL [facility]ACIN[facility] - 2 2 [facility]PATI[facility] INC T OFFICE 00690 [facility]ACIN[facility] OUTPATIEN 2 2 [facility] 10 HOSPITAL MINUTES P OFFICE 25222 OLYA DOBSON OUTPATIEN 1 1 [facility] T VISIT 15 MINUTES OFFICE 53444 [facility] 1 1 T VISIT 15 MINUTES OFFICE 01944 [facility] OUTPAT[facility] 1 1 T VISIT 15 MINUTES EMERGENCY 30426 [facility] 1 1 [facility] DEPARTMEN INC T VISIT MODERATE SEVERITY EMERGENCY 64240 LIANG MARGOTH LIANG MARGOTH 1 1 DEPARTMEN T VISIT HIGH/URGE NT SEVERITY HOSPITAL HYACINTH - 1 1 [facility] T OFFICE 44455 [facility] 1 1 T VISIT 15 MINUTES OFFICE 40685 [facility] OUTPATI[facility] 1 1 T VISIT 15 MINUTES OFFICE 26915 [facility] OUTPATIEN 1 1 T VISIT 15 MINUTES OFFICE 19211 [facility] OUTPATIEN 1 1 T VISIT 15 MINUTES OFFICE 69690 OLYA DOBSON OUTPATIEN 1 1 [facility] T VISIT 15 MINUTES OFFICE 38336 [facility] J[facility]VIS OUTPATIEN 1 1 [place] T VISIT ORTHOPAED 15 [facility] MINUTES OFFICE 33462 [facility] CONSULTAT 1 1 [place] ION ORTHOPAED NEW/ESTAB [facility]CS PLC PATIENT 40 MIN EMERGENCY 97052 SHAUN PEREYRA 1 1 EMERGENCY [facility] DEPARTMEN SERVICES T VISIT HIGH/URGE NT SEVERITY EMERGENCY 43725 [facility] 1 1 [facility] DEPARTMEN INC T VISIT MODERATE SEVERITY HOSPITAL [facility]ACIN[facility] - 1 1 [facility]PAT[facility] T HOSPITAL HYACINTH - 1 1 [facility] 50173 [facility] OUTPAT[facility] 1 1 HEALTH DANIKA T VISIT CLINIC OF 15 ROLAND MINUTES EMERGENCY 33127 SHAUN ESCOBAR 1 1 EMERGENCY III FIDE [facility] SERVICES T VISIT HIGH/URGE NT SEVERITY EMERGENCY 46508 HYACINTH 1 1 [facility] T VISIT LOW/MODER SEVERITY HOSPITAL HYACINTH - 1 1 [facility] OFFICE 10256 [facility] OUT[facility] 1 1 HEALTH DANIKA T VISIT CLINIC OF 15 ROLAND MINUTES [facility] HY[facility] 1 1 [facility] - 1 1 [facility] OFFICE 14151 OLYA DOBSON OUTPATIEN 1 1 [facility] T NEW 30 MINUTES OFFICE 42508 [facility] OUTPATI[facility] 1 1 HEALTH DANIKA T VISIT CLINIC OF 15 ROLAND MINUTES [facility] 57374 W[facility] PREVENTIV 0 0 HEALTH DANIKA E MED EST CLINIC OF PATIENT ROLAND 18-39 YRS [facility] HYAC[facility] - 0 0 [facility] EMERGENCY 63166 SHAUN ESCOBAR 0 0 EMERGENCY III, DEPARTMEN SERVICES LESLEY T VISIT HIGH/URGE ASSOCIATE NT S SEVERITY EMERGENCY 33109 HYACIN[facility] 0 0 [facility] T VISIT LOW/MODER SEVERITY OFFICE 28714 [facility], OUTPATIEN 9 9 HEALTH TASHA J T VISIT CLINIC OF 15 MINUTES [facility] EMERGENCY 10743 HYACINTH 9 9 [facility] T VISIT LIMITED/M INOR PROB EMERGENCY 98036 SHAUN HERNANDEZ, 9 9 EMERGENCY GOSIA R DEPARTMEN SERVICES T VISIT HIGH/URGE ASSOCIATE NT S SEVERITY [facility] HY[facility] - 9 9 [facility] HYACIN[facility] - 9 9 [facility] OFFICE 20869 [facility] OUTPATIEN 9 9 HEALTH TASHA J T VISIT CLINIC OF 25 MINUTES [facility] OFFICE 34994 [facility], OUTPATIEN 9 9 HEALTH TASHA J T VISIT CLINIC OF 15 MINUTES [facility] HYACINTH - 9 9 [facility] INPATIENT [facility] HYACINTH [facility] 9 9 [facility] HY[facility] 9 9 [facility] C[facility]AL - 9 9 [facility] T OFFICE 11573 [facility] OUTPATIEN 9 9 HEALTH TASHA J T VISIT CLINIC OF 15 MINUTES [facility] OFFICE 40788 [facility], OUTPATIEN 9 9 [facility] J T VISIT CLINIC OF 15 MINUTES [facility] OFFICE 18947 MEET, CONSULTDONA 9 9 SHANELLE ION DIAGNOSTI A NEW/ESTAB CCENTER PATIENT 15 MIN [facility] CENTRAL - 9 9 [facility] T OFFICE 70337 ROSENTHAL ROSENTHAL OUTPATIEN 9 9 JR, J V JR, J V T VISIT 15 MINUTES EMERGENCY 81296 HYACINTH 9 9 [facility] T VISIT MODERATE SEVERITY [facility] HYAC[facility] - 9 9 [facility] OUTPATIEN [facility] T OFFICE 46950 [facility], OUTPATIEN 9 9 HEALTH [facility] J T VISIT CLINIC OF 15 MINUTES [facility] HYACINTH - 9 9 [facility] OUTPATIEN INC T OFFICE 67104 [facility] OUTPATIEN 9 9 HEALTH TASHA Lott T VISIT CLINIC OF 15 MINUTES [facility] OFFICE 44266 [facility] OUTPATIEN 9 9 [facility] TASHA Lott VISIT CLINIC OF 15 MINUTES [facility] HYACINTH - 9 9 [facility] OUTPATIEN INC T EMERGENCY 39453 [facility]ACINTH 9 9 [facility] DEPARTMEN INC T VISIT LIMITED/M INOR PROB EMERGENCY 89695 ANGELA RESENDEZ, 9 9 [facility] T VISIT ON HIGH/URGE NT SEVERITY HOSPITAL HYACINTH - 9 9 [facility] OUTPATIEN [facility] T HOSPITAL CENTRAL - 9 9 [facility] T OFFICE 45388 ARIADNA BAILEYILLO OUTPATIEN 8 8 JR, J V JR, J V T VISIT 15 MINUTES EMERGENCY 78358 HYACINTH 8 8 [facility] DEPARTMEN INC T VISIT LIMITED/M INOR PROB HOSPITAL HYACINTH - 8 8 [facility] T HOSPITAL CENTRAL - 8 8 [facility] T OFFICE 91073 [facility] 8 [facility] T [facility]ISIT [facility] 10 BANK ACCT MINUTES OFFICE 26862 [facility]PATIEN 8 8 [facility] T NEW 30 [facility] MINUTES BANK ACCT EMERGENCY 03863 HYACINTH 8 8 [facility] DEPARTMEN INC T VISIT MODERATE SEVERITY HOSPITAL HYACINTH - 8 8 [facility] OUT[facility]EN INC T EMERGENCY 38234 [facility]ACIN[facility] 8 8 [facility] DEPARTMEN INC T VISIT HIGH/URGE NT SEVERITY HOSPITAL HYACINTH - 8 8 [facility] T
--- OUTSIDE RECORDS SUMMARY | 2016-06-18 14:17 | External Medical Summary Rpt ---
Author Author , Organization [employer] Address Unknown Phone Unavailable Care Team Providers Care Director Of Agriculture Name Role Phone OAKES LC, OAKES Unavailable Unavailable LC [employer] Unavailable Unavailable INC, [employer] AMJAD, AMJAD Unavailable Unavailable AMJAD SOB, AMJAD SOB Unavailable Unavailable ARNOLD MERCY, ARNOLD Unavailable Unavailable MERCY ARNOLD MERCY, ARNOLD Unavailable Unavailable MERCY DELGADO LAURA, DELGADO LAURA Unavailable Unavailable [facility] Unavailable Unavailable MEDICAL GROUP, [facility] FADI KRAFT, Unavailable Unavailable FADI KRAFT, DEX Unavailable Unavailable ROCIO BESSON MELINDA, BESSON Unavailable Unavailable MELINDA ADEOLA ANT, ADEOLA ANT Unavailable Unavailable ADEOLA ANT, ADEOLA ANT Unavailable Unavailable [facility] Unavailable Unavailable [facility] Kaylie ROSENTHAL JR, V, Unavailable Unavailable Kaylie ROSENTHAL JR, V [facility], Unavailable Unavailable [facility] Unavailable [facility] RODDY ANNA, RODDY Unavailable Unavailable ANNA CHIPPS KIAH & Unavailable Unavailable DUBILIER, CHIPPS KIAH & DUBILIER MARCO DANIKA, LARA Unavailable Unavailable DANIKA LARA DANIKA, ALRA Unavailable Unavailable TASHA MARRERO, Unavailable Unavailable TASHA LARA [facility], Unavailable [facility]available [facility] Unavailable Unavailable [facility], [facility] Unavailable Unavailable [facility], [facility]available Unavailable LAB, [facility] Unavailable Unavailable AND REHA, [facility] OF Unavailable Unavailable THE BLUE, [facility] THE BLUE WILFRID PAT, [...] DANIEL S, Unavailable Unavailable JEANINE, DANIEL S [facility] Unavailable Unavailable CHIROP[facility]CT, [facility] MAL, RONDAL E, Unavailable Unavailable MAL, RONDAL E KIRK ANNA, KIRK ANNA Unavailable Unavailable LIANG MARGOTH, LIANG MARGOTH Unavailable Unavailable LIANG MARGOTH, LIANG MARGOTH Unavailable Unavailable KAITLIN ADRIANA, KAITLIN Unavailable Unavailable ADRIANA GOSIA HERNANDEZ, Unavailable Unavailable GOSIA HERNANDEZ GERALD R, Unavailable Unavailable [facility] Unavailable Unavailable CENTER, [facility] Unavailable Unavailable INC, [facility] Unavailable Unavailable HOSPITAL, [facility] Unavailable Unavailable HOSPITAL P, [facility], Unavailable Unavailable [facility] ETHAN LONG Unavailable Unavailable ETHAN DARRON, ETHAN Unavailable Unavailable DARRON JONES TRA, JONES TRA Unavailable Unavailable JONES TRA, JONES TRA Unavailable Unavailable HILARIO II VINCENT, HILARIO Unavailable Unavailable II VINCENT [facility] Unavailable Unavailable IMAGING [facility], [facility], Unavailable Unavailable [facility], Unavailable Unavailable [facility] CONCEPCION JR DWI, CONCEPCION Unavailable Unavailable JR DWI [facility] Unavailable Unavailable CENTER, [facility] Unavailable Unavailable CENTER, P, [facility], P [facility] Unavailable Unavailable [facility], [facility] SANABRIA MERCY, SANABRIA Unavailable Unavailable [facility] LAWRENCE HAM, LAWRENCE HAM Unavailable Unavailable LAWRENCE HAM, LAWRENCE HAM Unavailable Unavailable [facility], Unavailable Unavailable [facility] GRE [facility], Unavailable Unavailable [facility] Unavailable Unavailable SERVICES, [facility] RAM GRACE, RAM Unavailable Unavailable LIS SHANELLE DSOUZA, Unavailable Unavailable SHANELLE DSOUZA EMMETT P, Unavailable Unavailable RANI TRIPLETT FIDE, JONAS FIDE Unavailable Unavailable LESLEY MCDANIEL, Unavailable Unavailable LESLEY MCDANIEL [facility] Un[facility] Raymond SHELTON, Unavailable Unavailable Raymond SHELTON GUILLEN ANTONINO, GUILLEN ANTONINO Unavailable Unavailable GUILLEN [...] [facility]ACY [id number] # Unavailable Unavailable [id number], [facility] # [id number] WEHRMAN III FIDE, Unavailable Unavailable WEHRMAN III FIDE WEHRMAN IIILESLEY, Unavailable Unavailable WEHRMAN IIILESLEY, PARISH NESBITT Unavailable Unavailable PARISH NESBITT, PARISH NESBITT Unavailable Unavailable WHANG LANI, WHANG LANI Unavailable Unavailable WHANG LANI, WHANG LANI Unavailable Unavailable JARVIS PLATT, JARVIS Unavailable Unavailable [facility] Unavailable Unavailable OF [place], [facility] [place] Purpose Continuity of Care Document - 11-24-2007 through 2016 Problems Code Diagnosis DOS Provider Status E119 TYPE 2 05-06-2016 [facility], P WITHOUT COMPLICATIO NS E669 OBESITY 05-06-2016 [facility], P R000 TACHYCARDIA 05-06-2016 [facility], P M5117 INTERVERTEB 05-02-2016 [facility] RAL DISC FAMILY D/O CHIROPRACT W/RADICULOP ATHY LS RGN M5137 OTH 05-02-2016 [facility] INTERVERTEB FAMILY RAL DISC CHIROPRACT DEGEN LUMBOSACRAL REGION M5387 OTHER 05-02-2016 [facility] SPECIFIED FAMILY DORSOPATHIE CHIROPRACT S LUMBOSACRAL REGION C54648 MUSCLE 05-02-2016 [facility] SPASM OF FAMILY BACK CHIROPRACT M9902 SEGMENTAL & 05-02-2016 [facility] SOMATIC FAMILY DYSFUNCTION CHIROPRACT THORACIC REGION M9903 SEGMENTAL & 05-02-2016 [facility] SOMATIC FAMILY DYSFUNCTION CHIROPRACT OF LUMBAR REGION M9904 SEGMENTAL & 05-02-2016 [facility] SOMATIC FAMILY DYSFUNCTION CHIROPRACT OF SACRAL REGION J069 ACUTE UPPER 01-21-2016 ARNVICKEY MERCY RESPIRATORY INFECTION UNSPECIFIED M9901 SEGMENTAL & 01-11-2016 [facility] SOMATIC FAMILY DYSFUNCTION CHIROPRACT CERVICAL REGION B370 CANDIDAL 12-31-2015 [facility] STOMATITIS PHYSICIANS GROUP B3781 CANDIDAL 12-31-2015 [facility] ESOPHAGITIS PHYSICIANS GROUP B9789 OT VIRAL 12-31-2015 [facility] AGENT CAUSE PHYSICIANS DISEASES GROUP CLASSIFIED ELSW J0190 ACUTE 12-19-2015 [facility]OLD [facility] SINUSITIS UNSPECIFIED J209 ACUTE 10-31-2015 ARNOLD MRECY BRONCHITIS UNSPECIFIED H8109 MENIERES 08-04-2015 [facility] DISEASE UNSPECIFIED EAR N830 FOLLICULAR 06-10-2015 [facility] CYST OF PHYSICIANS OVARY GROUP R102 PELVIC AND 06-10-2015 [facility] PERINEAL PHYSICIANS PAIN GROUP Z6843 BODY MASS 06-10-2015 [facility] INDEX BMI PHYSICIANS 50-59.9 GROUP ADULT N926 IRREGULAR 05-11-2015 [facility] MENSTRUATIO PHYSICIANS N GROUP UNSPECIFIED G4700 INSOMNIA 2015 ARNOLD MER[facility] UNSPECIFIED E1121 TYPE 2 05-03-2015 [facility] P W/DIABETIC NEPHROPATHY E1165 TYPE 2 05-03-2015 [facility] [place] R0602 SHORTNESS 05-03-2015 [facility] Z720 TOBACCO USE 05-03-2015 [facility] P J329 CHRONIC 04-06-2015 ARNOLD MERCY SINUSITIS UNSPECIFIED S01658 PAIN IN 02-07-2015 [facility] LEFT ANKLE PHYSICIANS, [facility] D24552 PAIN IN 02-07-2015 [facility] LEFT FOOT MEDICAL IMAGING ASS X28791H UNSPECIFIED 02-07-2015 [facility] SPRAIN UNS PHYSICIANS, TOES PLL INITIAL ENCOUNTER B379 CANDIDIASIS 02-05-2015 [facility] MER[facility] UNSPECIFIED M9985 OTHER 01-08-2015 [facility] BIOMECHANIC FAMILY AL LESIONS CHIROPRACT OF PELVIC REGION Z09 ENC F/U 12-30-2014 [facility] EXAM AFTR PHYSICIANS CMPL TX OTH GROUP THAN IZABELLA NEOPLSM Z3009 ENCOUNTER 12-30-2014 [facility] OT GENERAL PHYSICIANS GROUP SCISSORS SHARPENER&ADV ICE CONTRACEPT Z6842 BODY MASS 12-30-2014 [facility] INDEX BMI PHYSICIANS 45.0-49.9 GROUP ADULT E089 DIABETES 12-28-2014 [facility] MELLITUS PHYSICIANS, D/T PLLC UNDERLYING COND W/O COMP U62392 UNSPECIFIED 12-28-2014 [facility] ASTHMA PHYSICIANS, WITH ACUTE PLLC EXACERBATIO N R05 COUGH 12-28-2014 [facility] INC O021 MISSED 12-16-2014 [facility] PHYSICIANS GROUP O034 INCOMPLETE 12-16-2014 [facility] SPONT[facility] W/O COMPLICATIO N Z3A00 WEEKS OF 12-16-2014 [facility] GESTATION ANESTH OF OF THE BLUE NOT SPECIFIED Z3A12 12 WEEKS 12-16-2014 [facility] GESTATION PHYSICIANS OF GROUP O200 THREATENED 12-15-2014 [facility] INC Z3A13 13 WEEKS 12-15-2014 [facility]ATION [facility] OF INC Z0100 ENCOUNTER 12-13-2014 [facility] EXAM EYES & GRE VISION W/O ABNORMAL FIND I10 ESSENTIAL 12-09-2014 [facility] PRIMARY [facility] HYPERTENSIO INC N O000 ABDOMINAL 12-09-2014 [facility] INC Q50375 OTHER SPEC 12-09-2014 [facility] PHYSICIANS, RELATED PLLC COND 1ST TRIMESTER Z3480 ENC 11-25-2014 [facility] SUPERVISION [facility] OT NORMAL INC PREG UNS TRIMESTER O0941 SUPERVISION 11-21-2014 [facility] PREG PHYSICIANS W/GRAND GROUP MULTIPARITY FIRST TRI M49190 SUPERVISION 11-21-2014 [facility] ELDERLY PHYSICIANS MULTIGRAVID GROUP A FIRST TRIMESTER O2611 LOW WEIGHT 11-21-2014 [facility] GAIN IN PHYSICIANS GROUP FIRST TRIMESTER 07628 DIAB 10-10-2014 [facility] W/NEURO FOOT & MANIFESTS ANKLE CE TYPE II/UNS TYPE UNCNTRL 7295 PAIN IN 10-10-2014 [facility] SOFT FOOT & TISSUES OF ANKLE CE LIMB 7823 EDEMA 10-10-2014 [place] [address] SPRAIN AND 10-10-2014 [place] STRAIN OF FOOT & UNSPECIFIED ANKLE CE SITE OF FOOT 4619 ACUTE 10-09-2014 O[facility]A [facility] SINUSITIS, UNSPECIFIED 4659 ACUTE URIS 10-09-2014 [facility]CY OF UNSPECIFIED SITE 4739 UNSPECIFIED 10-09-2014 ARNVICKEY MERCY SINUSITIS 48861 MORBID 10-03-2014 [facility] V7791 SCREENING 10-03-2014 [facility]IP[facility] DISORDERS [facility] 8260 CLOSED 09-24-2014 [facility] FRACTURE OF PHYSICIANS, ONE OR PLLC MORE PHALANGES OF FOOT 2113 BENIGN 09-18-2014 [facility] NEOPLASM OF PHYSICIANS COLON GROUP 73524 ABDOMINAL 09-11-2014 [facility] PAIN, LEFT PHYSICIANS LOWER GROUP QUADRANT 6259 UNSPEC 09-01-2014 [facility] SYMPTOM PHYSICIANS ASSOC GROUP W/FEMALE GENITAL ORGANS 38731 ABDOMINAL 09-01-2014 [facility] PAIN, PHYSICIANS UNSPECIFIED GROUP SITE 7202 SACROILIITI 08-28-2014 [facility] S NOT FAMILY ELSEWHERE CHIROPRACT CLASSIFIED 87700 DEGEN 08-28-2014 [facility] LUMBAR/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 CHIROPRACT INTERVERTEB RAL DISC 7243 SCIATICA 08-28-2014 [facility] CHIROPRACT 7393 NONALLOPATH 08-28-2014 [facility] IC LESION FAMILY OF LUMBAR CHIROPRACT REGION NEC 7394 NONALLOPATH 08-28-2014 [facility] IC LESION FAMILY OF SACRAL CHIROPRACT REGION NEC 50450 ABDOMINAL 08-26-2014 [facility] PAIN, PHYSICIANS GENERALIZED GROUP V7651 SPECIAL 08-26-2014 [facility] SCREENING PHYSICIANS FOR GROUP MALIGNANT NEOPLASMS COLON 60441 ABDOMINAL 08-23-2014 [facility] PAIN RIGHT PHYSICIANS, LOWER PLLC QUADRANT 4590 UNSPECIFIED 08-18-2014 [facility] HEMORRHAGE PHYSICIANS GROUP 63370 ABDOMINAL 08-18-2014 [facility] PAIN, PHYSICIANS EPIGASTRIC GROUP V7231 ROUTINE 08-13-2014 [facility] AL EXAMINATION V745 SCREENING 08-13-2014 [facility] EXAMINATION LLC FOR VENEREAL DISEASE V221 SUPERVISION 08-12-2014 [facility] OF OTHER [facility] NORMAL INC 5718 OTHER 08-10-2014 [facility] CHRONIC MEDICAL NONALCOHOLI IMAGING ASS C LIVER DISEASE 28894 ABDOMINAL 08-10-2014 [facility] PAIN OTHER PHYSICIANS, SPECIFIED PLLC SITE 57957 DIAB W/O 07-05-2014 [facility] COMP TYPE [facility] II/UNS NOT INC STATED UNCNTRL 4660 ACUTE 07-05-2014 [facility] MADRID BRONCHITIS 1120 CANDIDIASIS 05-22-2014 [facility] OF MOUTH PHYSICIANS GROUP 5278 OTHER 05-15-2014 [facility] SPECIFIED PHYSICIANS DISEASES OF GROUP THE SALIVARY GLANDS 4610 ACUTE 05-06-2014 [facility] 71882 DIAB 03-28-2014 DR DANIEL Owens/JOSE KIRBY DPM MANIFESTS PSC TYPE II/UNS NOT UNCNTRL 73321 DIAB W/O 03-27-2014 [facility] MENTION DIABETIC COMP TYPE CENTER II/UNS TYPE UNCNTRL 62479 OBESITY, 03-27-2014 [facility] U[facility]PECIFIED [facility]ETIC CENTER V770 SCREENING 03-27-2014 [facility] THY[facility]ID [facility] DISORDER [facility] 3829 UNSPECIFIED 03-07-2014 [facility] MADR[facility] OTITIS MEDIA V7612 OTHER 03-06-2014 [facility] SCREENING [facility] MAMMOGRAM INC 2774 DISORDERS 03-03-2014 [facility] BILIRUBIN [facility]OSP EXCRETION 79258 CAUSALGIA 03-03-2014 [facility] 3569 UNSPEC 03-03-2014 [facility] HEREDIT&IDI [facility] OPATHIC HOSP PERIPHERAL NEUROPATHY 7242 LUMBAGO 03-03-2014 [facility] 7820 DISTURBANCE 03-03-2014 [facility] SKIN [facility] SENSATION [facility]OSP 87500 OTHER 03-03-2014 [facility] ABNORMAL [facility] GLUCOSE HOSP 7906 OTHER 03-03-2014 [facility] ABNORMAL [facility] BLOOD HOSP CHEMISTRY 6101 DIFFUSE 02-19-2014 [facility] CYSTIC PHYSICIANS MASTOPATHY GROUP 29013 MASTODYNIA 02-19-2014 [facility] PHYSICIANS GROUP 3574 POLYNEUROPA 01-02-2014 [facility] [place] THY OTHER ORTHOPAEDIC DISEASES S PLC CLASSIFIED ELSW 8293 DYSMENORRHE 12-31-2013 [facility] A PHYSICIANS GROUP 85396 UNSPECIFIED 12-25-2013 [facility] VAGINITIS PHYSICIANS AND GROUP VULVOVAGINI TIS 7881 DYSURIA 12-25-2013 [facility] PHYSICIANS GROUP 5110 PLEURISY 11-28-2013 [facility] MADR[facility] WITHOUT MENTION EFFUS/CURRE NT TB 8460 SPRAIN AND 11-03-2013 [facility] OF N EMERGENCY LUMBOSACRAL PHYS E9288 OTHER 11-03-2013 [facility] ACCIDENT N EMERGENCY PHYS 7862 COUGH 11-02-2013 [facility] IMAGING ASS 7391 NONALLOPATH 10-14-2013 BAKARI WEBB LESION OF CERVICAL REGION NEC 7392 NONALLOPATH 10-14-2013 BAKARI RANDY IC LESION OF THORACIC REGION NEC 3559 MONONEURITI 09-19-2013 [facility] MADRID S OF UNSPECIFIED SITE 5789 UNSPECIFIED 09-10-2013 JEANINE ANNA HEMORRHAGE OF GASTROINTES TINAL TRACT 6202 OTHER AND 09-10-2013 [facility] UNSPECIF[facility] MEDICAL OVARIAN IMAGING ASS CYST 462 [...] 05-01-2013 [facility] OF EYES GRE AND VISION 15023 OTHER 04-23-2013 [facility] MADRID MALAISE AND FATIGUE V0481 NEED 03-18-2013 [facility] MADRID PROPHYLACTI C VACCINATION &INOCULATIO N FLU 9248 CONTUSION 02-05-2013 [facility] MADRID OF MULTIPLE SITES NEC 98723 SWELLING OF 02-04-2013 [facility] LIMB EDIS 31297 SPRAIN AND 02-04-2013 [facility] STRAIN OF UNSPECIFIED SITE OF WRIST 98363 CONTUSION 02-04-2013 [facility] LAZ OF HAND E9179 OTHER 02-04-2013 [facility] STRIKING EDIS AGAINST W/WO SUBSEQUENT FALL 5758 OTHER 01-16-2013 [facility] ANT SPECIFIED DISORDER OF GALLBLADDER 04094 ABDOMINAL 01-16-2013 [facility] ANT PAIN RIGHT UPPER QUADRANT 73878 UNS 11-29-2012 [facility] MADRID GASTRITIS&G ASTRODUODIT IS W/O MENTION HEMORR 5759 UNSPECIFIED 11-29-2012 [facility] MADRID DISORDER OF GALLBLADDER 632 MISSED 08-31-2012 LARA DANIKA 75424 NAUSEA 08-31-2012 GUILLEN ANTONINO ALONE 85674 UNSPEC 08-21-2012 [facility] HEMORRHAGE [facility] EARLY INC ANTEPARTUM 97048 OTH ABN 08-19-2012 [facility] SHAPE/POSIT EDIS ION GRAVID UTERUS ANTEPARTUM 7871 HEARTBURN 04-18-2012 [facility] ANT 78790 ASTHMA, 03-18-2012 [facility] UNSPECIFIED MEM HOS[facility] , INC UNSPECIFIED STATUS 38774 ABDOMINAL 03-18-2012 [facility] PAIN, LEFT [facility] UPPER INC QUADRANT 9195 OT 01-05-2012 [facility] MX&UNSPEC SITES INSECT BITE NONVENOMOUS INF 51544 DIARRHEA 12-21-2011 [facility] ANT 7213 LUMBOSACRAL 12-14-2011 [facility] SLEEP AND SPONDYLOSIS REHA WITHOUT MYELOPATHY 7231 CERVICALGIA 12-14-2011 [facility] SLEEP AND REHA 8472 LUMBAR 12-14-2011 [facility] SPRAIN AND H SLEEP AND STRAIN REHA 7831 ABNORMAL 11-02-2011 [facility] GARNICA WEIGHT GAIN V2509 OT GENERAL 10-04-2011 [facility] DANIKA CNSL&ADVICE CONTRACEPT MANAGEMENT V2543 SURVEILLANC 09-06-2011 [facility] GARNICA E PREV PRSC IMPL SUBDERMAL CONTRACEPT 40424 PAIN IN 08-09-2011 WHANG LANI JOINT, ANKLE AND FOOT 7234 BRACHIAL 07-08-2011 JONES TRA NEURITIS OR RADICULITIS NOS 7294 UNSPECIFIED 07-08-2011 JONES TRA FASCIITIS 84091 UNSPECIFIED 04-13-2011 [facility] ANT ESOPHAGITIS 21146 REFLUX 04-13-2011 PATHOLOGY & ESOPHAGITIS CYTOLOGY LAB 65297 ATROPHIC 04-13-2011 PATHOLOGY & GASTRITIS CYTOLOGY WITHOUT LAB MENTION OF HEMORRHAGE 51485 OTHER SPEC 04-13-2011 [facility] ANT GASTRITIS WITHOUT MENTION HEMORRHAGE 5559 REGIONAL 04-13-2011 [facility] ANT ENTERITIS OF UNSPECIFIED SITE 73819 ULCERATION 04-13-2011 [facility] OF [facility] INTESTINE INC 88205 OTHER 04-13-2011 PATHOLOGY & SPECIFIED CYTOLOGY DISORDER OF LAB INTESTINES 5781 BLOOD IN 04-13-2011 [facility] EMERGENC[facility] 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[facility] ANOMALIES MEDICAL OF SPLEEN IMAGING ASS 5693 HEMORRHAGE 03-30-2011 A[facility] ANT OF RECTUM AND ANUS 86615 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 33635 HEMATURIA 02-28-2011 [facility] UNSPECIFIED MEM HOS[facility] INC 95645 GROSS 02-22-2011 [facility] P 5060 BRONCHITIS& 12-24-2010 LIANG MARGOTH PNEUMONITIS DUE TO FUMES&VAPOR S 5082 RESPIRATORY 12-24-2010 [facility] CONDITIONS MEDICAL DUE TO IMAGING ASS SMOKE INHALATION 04826 SHORTNESS 12-24-2010 LIANG MARGOTH OF BREATH 75064 OTHER 12-24-2010 [facility] NONSPECIFIC MEDICAL ABNORMAL IMAGING ASS FINDING OF LUNG FIELD 54687 BLISTERS 12-24-2010 [facility] W/EPID [facility] LOSS-BURN-S INC SHRAVAN DIGIT NOT THUMB 73886 BLISTERS 12-24-2010 [facility] WITH [facility]OS[facility] EPIDERMAL [...] JIMMIE VISION 7226 DEGENERATIO 08-06-2010 NEURODIAGNO N [facility] INTERVERTEB RAL DISC SITE UNSPEC 49000 LUMP OR 07-05-2010 [facility] MASS IN MEDICAL BREAST IMAGING ASS 6210 [...] IMPLANTABLE [place] [address] CHEST PAIN 05-23-2009 [facility] UNSPECIFIED MEDICAL IMAGING ASSOCIATES 80577 PAINFUL 05-23-2009 [facility] 41740 SPRAIN AND 05-23-2009 [facility] STRAIN OF MEM HOS[facility] CHONDROSTER INC NAL 8489 UNSPECIFIED 05-23-2009 [facility] SITE OF EMERGENCY SPRAIN AND SERVICES STRAIN ASSOCIATES V251 ENCOUNTER 08-05-2008 [facility] INSERT/[facility] IU CLINIC OF CONTRACEPTI [place] VE DEVICE [facility] 26660 NON-HEALING 07-29-2008 [facility] SURGICAL HEALTH WOUND NEC CLINIC OF HÉCTOR [facility] 09576 CHRONIC 07-17-2008 [facility] FATIGUE [facility] HOS[facility] SYNDROME INC V242 ROUTINE 07-17-2008 [facility] FOLLOW-UP CLINIC OF HÉCTOR PLLC 605 REDUNDANT 06-18-2008 [facility] CARE PREPUCE AND ASSOCIATES PHIMOSIS 94521 ABNORMAL 06-18-2008 [facility] MATERNAL HEALTH GLUCOSE CLINIC OF [place] ANTEPARTUM PLLC 09659 HIGH 06-18-2008 [facility] HEAD AT ANESTH OF TERM, THE DELIVERED MANOHAR 37579 FETOPELVIC 06-18-2008 [facility] ON, CLINIC OF DELIVERED HÉCTOR [facility] V270 OUTCOME OF 06-18-2008 [facility]OMEN'S DELIVERY HEALTH SINGLE CLINIC OF LIVEBORN CYNANY [facility] V3001 SINGLE 06-18-2008 [facility] LIVEBORN [facility] [place] [address] ABNORMAL 06-17-2008 [facility] MATERNAL [facility] GLUCOSE INC [place] W/DELIVERY 84661 OBESITY 06-17-2008 [facility] COMP PG MEM HOS[facility] CHILDBIRTH/ INC THE PP DELIVERED 25955 EXCESS 06-13-2008 [facility] CLINIC OF AFFECT MGMT HÉCTOR MOTH PLLC ANTPRTM 32257 TRANSIENT 06-03-2008 [facility] HYPERTENSIO MEM HOS[facility] N OF INC ANTEPARTUM 36259 POLYHYDRAMN 06-03-2008 [facility] ANTEPARTUM CLINIC OF COMPLICATIO HÉCTOR N [facility] 52786 THREATENED 05-29-2008 [facility] PREMATURE [facility] LABOR INC ANTEPARTUM 59900 OTHER 05-29-2008 KING CARIAS MD LABOR, ANTEPARTUM V220 SUPERVISION 05-20-2008 [facility] OF NORMAL PHYSICIANS FIRST LAB 03333 ABN MAT 04-30-2008 GLUCOSE DIAGNOSTICC [place]ANCE ENTER COMPL PG CB/PP UNS EOC 07612 OBES COMP 04-30-2008 [facility] /THE HOS[facility] PP ANTEPARTUM COND/COMP 81178 MATERNAL 04-03-2008 DI[facility] DIAGNOSTICC MELLITUS ENTER ANTEPARTUM 490 BRONCHITIS 04-02-2008 ARIADNA STONE JR J V SPECIFIED ACUTE OR CHRONIC 93750 OTHER 03-29-2008 ANGELA SPECIFED NATIONAL COMPLICATIO Ondore N ANTEPARTUM V222 03-29-2008 [facility] STATE, [facility] INCIDENTAL INC 55635 LATE 03-17-2008 [facility] VOMITING OF MEM HOSP INC ANTEPARTUM 8483 SPRAIN AND 02-23-2008 ANGELA STRAIN OF [employer] 82542 OTH 02-22-2008 KNOWN/SUSPE DIAGNOSTICC CTED ENTER ABNORMALITY -NEC-APC/C 4720 CHRONIC 02-18-2008 ARIADNA RHINITIS , J V 7840 HEADACHE 02-18-2008 ARIADNA DOMINGUEZ J V 02014 OTH SPEC 01-24-2008 COMP DIAGNOSTICC ENTER UNSPEC EPISODE CARE 47792 POOR 01-24-2008 [facility] MGMT [facility] HOSP ANTPRTM COND/COMP 43352 THREATENED 11-30-2007 [facility] , MEDICAL ANTEPARTUM IMAGING ASSOC[facility]ATES 5990 URINARY 11-24-2007 [facility] INFECTION INC SITE NOT SPECIFIED 90720 INFECTIONS 11-24-2007 [facility] OF [facility] GENITOURINA INC RY TRACT ANTEPARTUM Medications [...] 20 3- 4- 00 06 TO ve AL 76 20 20 08 WN N 00 [...] ST 00 08 04 24 30 00 MA Ac ER 40 -1 -0 .0 00 [...] 00 3- 4- 00 06 TO ve MA 51 20 20 07 WN IL 40 [...] 20 2- 7- 00 06 TO ve AL 76 20 20 08 WN N 00 [...] 00 5- 7- 00 06 TO ve MA 51 20 20 07 WN IL 40 [...] 20 7- 0- 00 06 TO ve AL 76 20 20 07 WN N 00 [...] 00 8- 0- 00 06 TO ve MA 51 20 20 07 WN IL 40 [...] 20 4- 3- 00 06 TO ve AL 76 20 20 07 WN N 00 [...] 3- 6- 00 MA 88 LD ve AL 05 20 20 RT 9 N 06 [...] 3- 3- 00 MA 88 LD ve AL 05 20 20 RT 9 N 06 [...] 0 14 7 CL 23 CH Ac MA 14 -2 -2 .0 IN ES ti OF 32 5- 5- 00 IC 41 TN ve LO 03 20 20 UT XA 70 11 11 PH CI 1 AR AL N MA CH HC CY AE L L 50 LL 0 C MG TA B MA 00 05 05 0 25 5 CL 23 CH Ac ED 05 -2 -2 .0 IN ES ti NI 40 5- 5- 00 IC 42 TN ve SO 01 20 20 UT NE 72 11 11 PH 5 AR AL 10 MA CH CY AE MG L [...] 9- 0- 00 MA 65 MA ve MA 59 20 20 RT 2 N ED [...] AM 00 03 03 1 30 10 IN 71 AR Ac OX 78 -1 -1 .0 L- 10 NO ti IC 12 4- 4- 00 MA 88 LD ve IL 61 20 20 RT 5 LI 33 11 11 RI N 1 PH CH 50 AR AR 0 MA D MG CY W # CA PS 10 UL 05 E 91 00 02 02 0 16 5 IN 44 RU Ac 40 -2 -2 .0 [...] 91 00 06 06 00 14 2 IN 44 ROSENBAUM Ac 40 -0 -1 .0 [...] 00 60 30 CL 19 CL Ac MA 74 -0 -1 .0 IN 52 AR [...] 8- 6- 00 MA 21 EY ve MA 59 20 20 RT 8 ED 31 09 09 AL NI 5 PH CH SO AR AE [...] 20 RT 7 YC 66 09 09 AL IN 8 PH CH AR AE 25 [...] 3- 5- 00 MA 39 E ve MA 59 20 20 RT 1 RO ED [...] 20 RT 8 YC 66 08 09 AL IN 8 PH CH AR AE 25 MA L 0 CY S MG #5 TA 91 BL ET ME 00 12 01 00 21 6 WA 69 GA Ac TH 60 -1 -0 .0 L- 99 IN ti YL 34 4- 1- 00 MA 82 EY ve MA 59 20 20 RT 7 ED 31 08 09 AL NI 5 PH CH SO AR AE LO MA L NE CY S 4 #5 MG 91 DO SE PK 00 12 01 00 18 7 WA 88 GA Ac 03 -1 -0 0. L- 13 IN ti 18 4- 1- 00 MA 21 EY ve 68 20 20 0 RT 8 51 08 09 AL 2 PH CH AR AE MA L [...] Procedure DOS Code Location Performer Comment HEMOGLOBI 24790 MATEO COBIAN N 7 DIABETIC GLYCOSYLA CATHERINE, ASUNCION A1C P CHIROPRAC 58724 JAQUELIN BAKARI TIC 7 N FAMILY MANIPULAT CHIROPRAC ROSS TX T SPINAL 3-4 REGIONS CHIROPRAC 53223 JAQUELIN LONG TIC 7 N FAMILY MANIPULAT CHIROPRAC ROSS TX T SPINAL 3-4 REGIONS CHIROPRAC 38087 LEODANRoman BAKARI TIC 7 N FAMILY MANIPULAT CHIROPRAC ROSS TX T SPINAL 3-4 REGIONS CHIROPRAC 18981 LEODANRoman BAKARI TIC 7 N FAMILY MANIPULAT CHIROPRAC ROSS TX T SPINAL 3-4 REGIONS CHIROPRAC 63378 LEODANRoman BAKARI TIC 7 N FAMILY MANIPULAT CHIROPRAC ROSS TX T SPINAL 3-4 REGIONS CHIROPRAC 32036 LEODANRoman BAKARI TIC 7 N FAMILY MANIPULAT CHIROPRAC ROSS TX T SPINAL 3-4 REGIONS HEMOGLOBI 65398 MATEO COBIAN N 6 DIABETIC GLYCOSYLA CATHERINE, ASUNCION A1C P BLOOD 74510 [facility] COUNT 6 [facility] COMPLETE INC INC AUTO&AUTO DIFRNTL WBC COMPREHEN 10314 [facility] SIVE 6 [facility] METABOLIC INC INC PANEL COLLECTIO 98421 [facility] N VENOUS 6 [facility] BLOOD INC INC VENIPUNCT URE LIPID 84673 [facility]EL 6 [facility] INC CHIROPRAC 31501 JAQUELIN VILLEGAS TIC 6 N FAMILY RANDY MANIPULAT CHIROPRAC ROSS TX T SPINAL 3-4 REGIONS CHIROPRAC 11596 JAQUELIN VILLEGAS TIC 6 N FAMILY RANDY MANIPULAT CHIROPRAC ROSS TX T SPINAL 3-4 REGIONS HEMOGLOBI 04431 MATEO COBIAN N 6 DIABETIC GLYCOSYLA CENTER, ASUNCION A1C P CHIROPRAC 70223 JAQUELIN VILLEGAS TIC 6 N FAMILY RANDY MANIPULAT CHIROPRAC ROSS TX T SPINAL 3-4 REGIONS CHIROPRAC 85628 JAQUELIN VILLEGAS TIC 6 N FAMILY RANDY MANIPULAT CHIROPRAC ROSS TX T SPINAL 3-4 REGIONS CHIROPRAC 34650 JAQUELIN LONG TIC 6 N FAMILY DARRON MANIPULAT CHIROPRAC ROSS TX T SPINAL 3-4 REGIONS CHIROPRAC 26708 JAQUELIN VILLEGAS TIC 6 N FAMILY RANDY MANIPULAT CHIROPRAC ROSS TX T SPINAL 3-4 REGIONS CHIROPRAC 60665 JAQUELIN LONG TIC 6 N FAMILY DARRON MANIPULAT CHIROPRAC ROSS TX T SPINAL 3-4 REGIONS CHIROPRAC 71121 JAQUELIN LONG TIC 6 N FAMILY DARRON MANIPULAT CHIROPRAC ROSS TX T SPINAL 3-4 REGIONS COLLECTIO 74596 HYACINTH CLAROS N VENOUS 6 [facility] BLOOD INC INC VENIPUNCT URE COMPREHEN 65489 HYACIN[facility] SIVE 6 [facility] METABOLIC INC INC PANEL LIPID 23707 HYACINTH CL[facility]OS PANEL 6 [place] [address] HYACIN[facility] CL[facility] THYROID 6 [facility] STIMULATI INC INC NG HORMONE TSH CHIROPRAC 42789 JAQUELIN VILLEGAS TIC 6 N FAMILY RANDY MANIPULAT CHIROPRAC ROSS TX T SPINAL 3-4 REGIONS CHIROPRAC 41315 JAQUELIN VILLEGAS TIC 6 N FAMILY RANDY MANIPULAT CHIROPRAC ROSS TX T SPINAL 3-4 REGIONS HEMOGLOBI 49554 [place] AMJAD SOB N 6 DIABETIC GLYCOSYLA CATHERINE, ASUNCION A1C P CHIROPRAC 06087 JAQUELIN VILLEGAS TIC 6 N FAMILY RANDY MANIPULAT CHIROPRAC ROSS TX T SPINAL 3-4 REGIONS CHIROPRAC 92607 JAQUELIN VILLEGAS TIC 6 N FAMILY RANDY MANIPULAT CHIROPRAC ROSS TX T SPINAL 3-4 REGIONS CHIROPRAC 78963 JAQUELIN VILLEGAS TIC 6 N FAMILY RANDY MANIPULAT CHIROPRAC ROSS TX T SPINAL 3-4 REGIONS CHIROPRAC 31358 JAQUELIN LONG TIC 6 N FAMILY DARRON MANIPULAT CHIROPRAC ROSS TX T SPINAL 3-4 REGIONS HEMOGLOBI 03042 [place] AMJAD SOB N 6 DIABETIC GLYCOSYLA CATHERINE, ASUNCION A1C P CHIROPRAC 13469 JAQUELIN VILLEGAS TIC 6 N FAMILY RANDY MANIPULAT CHIROPRAC ROSS TX T SPINAL 3-4 REGIONS CHIROPRAC 85006 JAQUELIN VILLEGAS TIC 6 N FAMILY RANDY MANIPULAT CHIROPRAC ROSS TX T SPINAL 3-4 REGIONS CHIROPRAC 25479 JAQUELIN VILLEGAS TIC 6 N FAMILY RANDY MANIPULAT CHIROPRAC ROSS TX T SPINAL 3-4 REGIONS CHIROPRAC 32375 JAQUELIN VILLEGAS TIC 6 N FAMILY RANDY MANIPULAT CHIROPRAC ROSS [place] T SPINAL 3-4 [place] [address] [facility] TRANSVAGI 6 PHYSICIAN DANIKA NAL S GROUP CHIROPRAC 60851 JAQUELIN LONG TIC 6 N FAMILY DARRON MANIPULAT CHIROPRAC ROSS TX T SPINAL 3-4 REGIONS CHIROPRAC 15224 JAQUELIN VILLEGAS TIC 6 N FAMILY RANDY MANIPULAT CHIROPRAC ROSS TX T SPINAL 3-4 REGIONS CHIROPRAC 31565 JAQUELIN LONG TIC 6 N FAMILY DARRON MANIPULAT CHIROPRAC ROSS TX T SPINAL 3-4 REGIONS CHIROPRAC 91230 JAQUELIN VILLEGAS TIC 6 N FAMILY RANDY MANIPULAT CHIROPRAC ROSS TX T SPINAL 3-4 REGIONS CHIROPRAC 10524 JAQUELIN VILLEGAS TIC 6 N FAMILY RANDY MANIPULAT CHIROPRAC ROSS TX T SPINAL 3-4 [place] [address] [facility] TRANSVAGI 6 PHYSICIAN DANIKA NAL S GROUP ECG 19258 HYACINTH MARTINEZ ROUTINE 6 [facility] W/LEAST P 12 LDS I&R ONLY RADIOLOGI 17963 [place] [facility] C EXAM 6 MEDICAL EDIS CHEST 2 IMAGING VIEWS ASS FRONTAL&L ATERAL URNLS DIP 98586 [facility] MARCO 6 PHYSICIAN DANIKA STICK/TAB S GROUP LET RGNT NON-AUTO W/O MICRSCP HEMOGLOBI 55970 [place] AMJAD SOB N 6 DIABETIC GLYCOSYLA CATHERINE, ASUNCION A1C P SURGICAL L3260 ADVANCED ADVANCED BOOT/SHOE 5 TECHNOLOG TECHNOLOG EACH IES INC IES INC RADEX 89947 [place] [facility] FOOT 5 MEDICAL ROICO COMPLETE IMAGING MINIMUM 3 ASS VIEWS CHIROPRA 62374 JAQUELIN VILLEGAS TIC 5 N FAMILY RANDY MANIPULAT CHIROPRAC ROSS TX T SPINAL 1-2 REGIONS HEMOGLOBI 48378 [place] AMJAD SOB N 5 DIABETIC GLYCOSYLA CATHERINE, [facility] [place] A1[place] [address] HYACINTH CLAROS INFUSION 5 [facility] THERAPY/P INC INC ROPHYLAXI S /DX 1ST TO 1 HR THERAPEUT 61094 HYACINTH CLAROS IC 5 [facility] INJECTION INC [place] [address] [facility], [place]NA[place] SURG 5 [facility] PATHOLOGY GROSS&ANNA ROSCOPIC EXAM TX MISSED 95453 [facility] MARCO 5 PHYSICIAN DANIKA FIRST S GROUP TRIMESTER SURGICAL ECG 93393 HYACINTH JAVIER JR ROUTINE 5 [facility] W/LEAST P 12 LDS I&[place] [address] HYACIN[facility] CLAROS INFUSION 5 [facility] THERAPY INC INC PROPHYLAX IS/DX EA HOUR ECG 37031 HYACINTH CL[facility]OS ROUTINE 5 [facility] ECG INC INC W/LEAST 12 LDS TRCG ONLY W/O I&R GLUC BLD 82009 HYACINTH CLAROS GLUC MNTR 5 [facility] DEV INC INC CLEARED FDA SPEC HOME USE INJECTION J2405 HYACINTH CL[facility]OS 5 [facility] ONDANSETR INC INC ON HCL PER 1 MG ANESTHESI 03690 [facility] FERRO MAKENZIE A 5 ANESTH INCOMPLET OF THE E/MISSED BLUE US PREG 21249 [facility] UTERUS 5 MEDICAL EDIS REAL TIME IMAGING W/IMAGE ASS DCMTN TRANSVAG OPHTH 76058 [facility] 5 GRE GRE XM&EVAL COMPRHNSV ESTAB PT 1/> DETERMINA 46474 [facility] TION 5 GRE GRE REFRACTIV E STATE BLOOD 80132 HYACINTH CLAROS COUNT 5 [facility] COMPLETE INC INC AUTO&AUTO DIFRNTL WBC URNLS DIP 67742 HYACINTH HYACINTH 5 [facility] STICK/TAB INC INC LET REAGENT AUTO MICROSCOP Y COMPREHEN 05465 HYACINTH CLAROS SIVE 5 [facility] METABOLIC INC INC PANEL OBSTETRIC 64683 HYACINTH CLAROS PANEL 5 [facility] INC INC COLLECTIO 42632 HYACINTH CLAROS N VENOUS 5 [facility] BLOOD INC INC VENIPUNCT URE INF AGT G0432 HYACINTH CLAR[facility] AB DETECT 5 [facility] EIA TECH INC INC HIV-1&/HI V-2 SCR US PREG 79594 [facility] LARA UTERUS 5 PHYSICIAN DANIKA REAL TIME S GROUP W/IMAGE DCMTN TRANSVAG IADNA 61974 HYACINTH CLAROS NEISSERIA 5 [facility] INC INC GONORRHOE AE AMPLIFIED PROBE TQ IADNA 24146 HYACINTH CLAROS CHLAMYDIA 5 [facility] INC INC TRACHOMAT IS AMPLIFIED PROBE TQ RADEX 99533 MATEO PEDROZA FOOT 5 FOOT & N SHABNAM COMPLETE ANKLE CE MINIMUM 3 VIEWS HEMOGLOBI 89219 MATEO CURTSINGE N 5 DIABETIC R TAR GLYCOSYLA CENTER ASUNCION A1C RADEX 20280 [facility] MIKEY FOOT 5 MEDICAL ROCIO COMPLETE IMAGING MINIMUM 3 [place] [address] [facility], PICKLESIM SURG 5 [facility] ER JR SUMIT PATHOLOGY GROSS&ANNA ROSCOPIC EXAM COLSC FLX 23641 [facility] MIKAYLA 5 PHYSICIAN CAM W/REMOVAL S GROUP LESION BY HOT BX FORCEPS CHIROPRAC 13620 JAQUELIN VILLEGAS TIC 5 N FAMILY RANDY MANIPULAT CHIROPRAC ROSS TX T SPINAL 1-[address] [place] [address] [facility] ABDOMEN & 5 MEDICAL ROCIO PELVIS IMAGING W/O ASS CONTRAST MATERIAL IADNA 80214 [facility], [facility] NEISSERIA 5 [facility] ER JR SUMIT GONORRHOE AE AMPLIFIED PROBE TQ CYTP C/V 33170 [facility], [facility] AUTO THIN 5 LLC ER JR SUMIT LYR PREPJ SCR MNL RESCR PHYS URNLS DIP 68187 [facility] LYNETTE 5 PHYSICIAN MARGOTH STICK/TAB S GROUP LET RGNT NON-AUTO W/O MICRSCP IADNA 20366 [facility], PICK[facility] CHLAMYDIA 5 [facility] ER JR SUMIT TRACHOMAT IS AMPLIFIED PROBE TQ GONADOTRO 76529 HYACINTH CLAROS PIN 5 [facility] CHORIONIC INC INC QUALITATI VE COLLECTIO 61218 HYACINTH CLAROS N VENOUS 5 [facility] [place] [address] [facility] ABDOMEN & 5 MEDICAL ROCIO PELVIS IMAGING W/O ASS CONTRAST MATERIAL CHIROPRAC 09253 JAQUELIN VILLEGAS TIC 5 N FAMILY RANDY MANIPULAT CHIROPRAC ROSS TX T SPINAL 1-2 REGIONS COLLECTIO 74507 HYACINTH CLAROS N VENOUS 5 [facility] BLOOD INC INC VENIPUNCT URE LIPID 47677 HYACINTH CLAROS PANEL 5 [facility] INC INC FOR DIAB A5512 MATEO AMJALeticia SOB ONLY MX 5 DIABETIC DNSITY CENTER, INSRT DIR P FORMD PRFAB EA DIAB ONLY A5500 MATEO COBIAN SOB FIT CSTM 5 DIABETIC PREP&SPL CENTER, SHOE MX P DNSITY INSRT HEMOGLOBI 10183 MATEO COBIAN SOB N 5 DIABETIC GLYCOSYLA CENTER, ASUNCION A1C P INJECTION J1040 [facility] JEANINE 5 PHYSICIAN ANNA METHYLPRE S GROUP DNISOLONE ACETATE 80 MG THERAPEUT 96040 [facility] JEANINE IC 5 PHYSICIAN ANNA PROPHYLAC S GROUP TIC/DX INJECTION SUBQ/IM COLLECTIO 27636 MATEO COBIAN SOB N VENOUS 5 DIABETIC BLOOD CENTER VENIPUNCT URE CHIROPRAC 85773 JAQUELIN VILLEGAS TIC 5 N FAMILY RANDY MANIPULAT CHIROPRAC ROSS TX T SPINAL 1-2 REGIONS THERAPEUT 48671 JAQUELIN VILLEGAS IC PX 1/> 5 N FAMILY RANDY AREAS CHIROPRAC EACH 15 T MIN EXERCISES CHIROPRAC 00602 JAQUELIN VILLEGAS TIC 5 N FAMILY RANDY MANIPULAT CHIROPRAC ROSS TX T SPINAL 1-2 REGIONS APPL 12155 JAQUELIN VILLEGAS MODALITY 5 N FAMILY RANDY 1/> AREAS CHIROPRAC TRACTION T MECHANICA L CHIROPRAC 09303 JAQUELIN VILLEGAS TIC 5 N FAMILY RANDY MANIPULAT CHIROPRAC ROSS TX T SPINAL 1-2 REGIONS THERAPEUT 63180 JAQUELIN VILLEGAS IC PX 1/> 5 N FAMILY RANDY AREAS CHIROPRAC EACH 15 T MIN EXERCISES [facility]- 62192 HYACINTH CLAROS AIDED 5 [facility] DETECTION INC INC SCREENING MAMMOGRAP HY SCREENING G0202 HYACIN[facility] CLAROS 5 [facility] MAMMOGRAP INC INC HY CHIRAG INCL CAD WHEN PERFORMD APPL 02074 JAQUELIN VILLEGAS MODALITY 5 N FAMILY RANDY 1/> AREAS CHIROPRAC ELEC T STIMJ EA 15 MIN THERAPEUT 24881 JAQUELIN VILLEGAS IC PX 1/> 5 N FAMILY RANDY AREAS CHIROPRAC EACH 15 T MIN EXERCISES CHIROPRAC 34392 JAQUELIN VILLEGAS TIC 5 N FAMILY RANDY MANIPULAT CHIROPRAC ROSS TX T SPINAL 1-2 REGIONS COMPREHEN 51328 [facility] SIVE 5 [facility] PANEL HEMOGLOBI 31868 [facility]ENTRAL N 5 [facility] GLYCOSYLA H[facility]P HOSP ASUNCION A1C THERAPEUT 71134 JAQUELIN VILLEGAS IC PX 1/> 5 N FAMILY RANDY AREAS CHIROPRAC EACH 15 T MIN EXERCISES CHIROPRAC 80253 JAQUELIN VILLEGAS TIC 5 N FAMILY RANDY MANIPULAT CHIROPRAC ROSS TX T SPINAL 1-2 [place] [address] [facility] TRANSVAGI 4 PHYSICIAN DANIKA NAL S GROUP NERVE 74061 [facility] CONDUCTIO 4 NEUROLOGY AYAD N STUDIES -12 CONSULTAN STUDIES T NEEDLE 56059 [facility] EMG EA 4 NEUROLOGY AYAD EXTREMTY W/PARASPI CONSULTAN NL AREA T COMPLETE SMR PRIM 36189 [facility] SRC WET 4 PHYSICIAN DANIKA [facility] S GROUP NFCT AGT MRI 45757 CENTRAL JONES TRA SPINAL 4 [place] CANAL ORTHOPAED LUMBAR ICS PLC W/O CONTRAST MATERIAL RADIOLOGI 11835 [facility] C EXAM 4 MEDICAL ROCIO CHEST 2 IMAGING VIEWS ASS FRONTAL&L ATERAL RADEX 14628 JONES TRA JONES TRA SPINE 4 LUMBOSACR AL 2/3 VIEWS THERAPEUT 99771 BAKARI VILLEGAS IC PX 1/> 4 RANDY RANDY AREAS EACH 15 MIN EXERCISES CHIROPRAC 56155 BAKARI BAKARI TIC 4 RANDY RANDY MANIPULAT ROSS TX SPINAL 3-4 REGIONS CHIROPRAC 20681 BAKARI BAKARI TIC 4 RANDY RANDY MANIPULAT ROSS TX SPINAL 3-4 REGIONS APPL 23882 BAKARI BAKARI MODALITY 4 RANDY RANDY 1/> AREAS TRACTION MECHANICA L THERAPEUT 58591 BAKARI BAKARI IC PX 1/> 4 RANDY RANDY AREAS EACH 15 MIN EXERCISES THERAPEUT 00901 BAKARI BAKARI IC PX 1/> 4 RANDY RANDY AREAS EACH 15 MIN EXERCISES CHIROPRAC 55998 BAKARI BAKARI TIC 4 RANDY RANDY MANIPULAT ROSS TX SPINAL 3-4 REGIONS CHIROPRAC 29376 BAKARI BAKARI TIC 4 RANDY RANDY MANIPULAT ROSS TX SPINAL 3-4 REGIONS THERAPEUT 45849 BAKARI BAKARI IC PX 1/> 4 RANDY RANDY AREAS EACH 15 MIN EXERCISES RADEX 83699 [place] RICHARDSO FOOT 4 FOOT & N SHABNAM COMPLETE ANKLE CE MINIMUM 3 VIEWS THERAPEUT 80609 BAKARI BAKARI IC PX 1/> 4 RANDY RANDY AREAS EACH 15 MIN EXERCISES CHIROPRAC 89625 BAKARI BAKARI TIC 4 RANDY RANDY MANIPULAT ROSS TX SPINAL 3-4 REGIONS CHIROPRAC 82355 BAKARI BAKARI TIC 4 RANDY RANDY MANIPULAT ROSS TX SPINAL 3-4 REGIONS THERAPEUT 51131 BAKARI BAKARI IC PX 1/> 4 RANDY RANDY AREAS EACH 15 MIN EXERCISES THERAPEUT 93035 BAKARI ABKARI IC PX 1/> 4 RANDY RANDY AREAS EACH 15 MIN EXERCISES CHIROPRAC 77580 BAKARI BAKARI TIC 4 RANDY RANDY MANIPULAT ROSS [place] SPINAL 3-[address] [place] [address] [facility] ABDOMEN & 4 MEDICAL EDIS PELVIS IMAGING W/O ASS CONTRAST MATERIAL THERAPEUT 47691 BAKARI BAKARI IC PX 1/> 4 RANDY RANDY AREAS EACH 15 MIN EXERCISES CHIROPRAC 02807 BAKARI BAKARI TIC 4 RANDY RANDY MANIPULAT ROSS TX SPINAL 3-4 REGIONS CHIROPRAC 81952 BAKARI BAKARI TIC 4 RANDY RANDY MANIPULAT ROSS TX SPINAL 3-4 REGIONS THERAPEUT 27509 BAKARI BAKARI IC PX 1/> 4 RANDY RANDY AREAS EACH 15 MIN EXERCISES THERAPEUT 60320 BAKARI BAKARI IC PX 1/> 4 RANDY RANDY AREAS EACH 15 MIN EXERCISES CHIROPRAC 27962 BAKARI BAKARI TIC 4 RANDY RANDY MANIPULAT ROSS TX SPINAL 3-4 REGIONS CHIROPRAC 02138 BAKARI BAKARI TIC 4 RANDY RANDY MANIPULAT ROSS TX SPINAL 3-4 REGIONS THERAPEUT 72370 BAKARI BAKARI IC PX 1/> 4 RANDY RANDY AREAS EACH 15 MIN EXERCISES THERAPEUT 07327 BAKARI BAKARI IC PX 1/> 4 RANDY RANDY AREAS EACH 15 MIN EXERCISES CHIROPRAC 98765 BAKARI BAKARI TIC 4 RANDY RANDY MANIPULAT ROSS TX SPINAL 3-4 REGIONS CHIROPRAC 49938 BAKARI BAKARI TIC 4 RANDY RANDY MANIPULAT ROSS TX SPINAL 3-4 REGIONS THERAPEUT 46218 BAKARI BAKARI IC PX 1/> 4 RANDY RANDY AREAS EACH 15 MIN EXERCISES THERAPEUT 90635 BAKARI BAKARI IC PX 1/> 4 RANDY RANDY AREAS EACH 15 MIN EXERCISES CHIROPRAC 84174 BAKARI BAKARI TIC 4 RANDY RANDY MANIPULAT ROSS TX SPINAL 3-4 REGIONS CHIROPRAC 34837 BAKARI BAKARI TIC 4 RANDY RANDY MANIPULAT ROSS TX SPINAL 3-4 REGIONS THERAPEUT 30166 BAKARI BAKARI IC PX 1/> 4 RANDY RANDY AREAS EACH 15 MIN EXERCISES 40225 [facility] TRANSVAGI 4 DANIKA DANIKA NAL THERAPEUT 34711 BAKARI BAKARI IC PX 1/> 4 RANDY RANDY AREAS EACH 15 MIN EXERCISES CHIROPRAC 64864 BAKARI BAKARI TIC 4 RANDY RANDY MANIPULAT ROSS TX SPINAL 3-4 REGIONS CHIROPRAC 31983 BAKARI BAKARI TIC 4 RANDY RANDY MANIPULAT ROSS TX SPINAL 3-4 REGIONS THERAPEUT 49595 BAKARI BAKARI IC PX 1/> 4 RANDY RANDY AREAS EACH 15 MIN EXERCISES THERAPEUT 78597 BAKARI BAKARI IC PX 1/> 4 RANDY RANDY AREAS EACH 15 MIN EXERCISES CHIROPRAC 76288 BAKARI BAKARI TIC 4 RANDY RANDY MANIPULAT ROSS TX SPINAL 3-4 REGIONS APPL 12307 BAKARI BAKARI MODALITY 4 RANDY RANDY 1/> AREAS TRACTION MECHANICA L APPL 24047 BKAARI BAKARI MODALITY 4 RANDY RANDY 1/> AREAS TRACTION MECHANICA L CHIROPRAC 40011 BAKARI BAKARI TIC 4 RANDY RANDY MANIPULAT ROSS TX SPINAL 3-4 REGIONS URINE 05247 [facility]ARA 4 DANIKA DANIKA TEST VISUAL COLOR CMPRSN METHS THERAPEUT 67016 BAKARI BAKARI IC PX 1/> 4 RANDY RANDY AREAS EACH 15 MIN EXERCISES GONADOTRO 04638 HYACINTH CLAROS PIN 4 [facility] CHORIONIC INC INC QUALITATI VE THERAPEUT 63091 BAKARI BAKARI IC PX 1/> 4 RANDY RANDY AREAS EACH 15 MIN EXERCISES CHIROPRAC 55847 BAKARI VILLEGAS TIC 4 RANDY RANDY MANIPULAT ROSS TX SPINAL 3-4 REGIONS APPL 13198 BAKARI VILLEGAS MODALITY 4 RANDY RANDY 1/> AREAS TRACTION MECHANICA L APPL 47095 BAKARI VILLEGAS MODALITY 4 RANDY RANDY 1/> AREAS TRACTION MECHANICA L CHIROPRAC 94506 BAKARI VILLEGAS TIC 4 RANDY RANDY MANIPULAT ROSS TX SPINAL 3-4 REGIONS THERAPEUT 27376 BAKARI VILLEGAS IC PX 1/> 4 RANDY RANDY AREAS EACH 15 MIN EXERCISES CHIROPRAC 82796 BAKARI VILLEGAS TIC 4 RANDY RANDY MANIPULAT ROSS TX SPINAL 3-4 REGIONS APPL 45573 BAKARI VILLEGAS MODALITY 4 RANDY RANDY 1/> AREAS TRACTION MECHANICA L 25 15668 COMBINED COMBINED HYDROXY 4 PHYSICIAN PHYSICIAN INCLUDES S LA S LA FRACTIONS IF PERFORMED GENERAL 80266 COMBINED COMBINED HEALTH 4 PHYSICIAN PHYSICIAN PANEL S LA S LA CYANOCOBA 76952 COMBINED COMBINED SCOOTER 4 PHYSICIAN PHYSICIAN VITAMIN S LA S LA B-12 LIPID 44606 COMBINED COMBINED PANEL 4 PHYSIC[place] [address] COMBINED COMBINED FREE 4 PHYSICIAN PHYSICIAN THYROXINE S LA S LA SEDIMENTA 91276 COMBINED COMBINED TION RATE 4 PHYSICIAN PHYSICIAN RBC S LA S LA NON-AUTOM ATED BLOOD 77442 COMBINED COMBINED COUNT 4 PHYSICIAN PHYSICIAN RETICULOC S LA S LA YTE AUTOMATED IRON 98024 COMBINED COMBINED BINDING 4 PHYSICIAN PHYSICIAN CAPACITY S LA S LA DETERMINA 42675 [facility] TION 4 GRE GRE REFRACTIV E STATE OPHTH 02627 [facility] MEDICAL 4 GRE GRE XM&EVAL COMPRHNSV ESTAB PT 1/> IADNA 79025 PICKLESIM PICKLESIM NEISSERIA 4 ER JR SUMIT ER JR SUMIT GONORRHOE AE AMPLIFIED PROBE TQ CYTP C/V 43114 PICKLESIM PICKLESIM AUTO THIN 4 ER JR SUMIT ER JR SUMIT LYR PREPJ SCR MNL RESCR PHYS IADNA 83371 PICKLESIM PICKLESIM CHLAMYDIA 4 ER JR SUMIT ER JR SUMIT TRACHOMAT IS AMPLIFIED PROBE TQ INFLUENZA Q2038 [facility] VACC 4 [facility] SPLIT VIRUS 3 YRS & > IM FLUZONE ADMINISTR G0008 [facility] DOBSON ATION OF 4 [facility] INFLUENZA VIRUS VACCINE WRIST L3908 [facility] HAND 3 ORTHOSIS EXT CONTROL COCK-UP PREFAB RADEX 56814 [facility] HAND 3 EDIS ED[place] MIN[address] [address] [place] [address] [facility] ABDOMEN & 3 EDIS EDIS [place]EL[place] [address] HYACIN[facility] CL[facility]OS ABDOMINAL 3 [facility] REAL [place] TIME W/[place] [address] [facility] TRANSVAGI 3 DANIKA DANIKA NAL [place] PREG 67072 [facility] UTERUS 3 DANIKA DANIKA REAL TIME W/IMAGE DCMTN TRANSVAG URINE 88086 [facility] 3 DANIKA DANIKA TEST VISUAL COLOR CMPRSN METHS GONADOTRO 93790 HYACIN[facility] CL[facility]OS PIN 3 [facility] CHORIONIC INC INC QUANTITAT ROSS GONADOTRO 51254 HYACIN[facility] CLAROS PIN 3 [facility] CHORIONIC INC INC QUANTITAT ROSS US PREG 26535 HYACIN[facility]OS UTERUS 3 [facility] REAL TIME INC INC W/IMAGE DCMTN TRANSVAG URNLS DIP 28589 [facility] 3 [facility] STICK/TAB INC INC LET REAGENT AUTO MICROSCOP Y URINE 53852 [facility] CL[facility]OS 3 [facility] TEST INC INC VISUAL COLOR CMPRSN METHS COMPREHEN 28777 HYACIN[facility] CL[facility]OS SIVE 3 [facility] METABOLIC INC INC PANEL CULTURE 57254 HYACINTH RAM BACTERIAL 3 [facility] LIS INC QUANTTATI VE COLONY COUNT URINE BLOOD 86301 HYACINTH CLAROS COUNT 3 [facility] COMPLETE INC INC AUTO&AUTO DIFRNTL WBC COMPREHEN 39872 [facility] SIVE 3 [facility] METABOLIC INC INC PANEL HEMOGLOBI 71407 HYACINTH CLAROS N 3 [facility] HOSP GLYCOSYLA INC INC ASUNCION A1C OPHTH 45217 [facility] 3 GRE GRE XM&EVAL COMPRHNSV ESTAB PT 1/> DETERMINA 02860 [facility]UN DUNN TION 3 GRE GRE REFRACTIV E STATE URNLS DIP 16728 HYACIN[facility] CL[facility]OS 3 [facility] STICK/TAB INC INC LET REAGENT AUTO MICROSCOP Y URINE 52751 HY[facility]IN[facility] CL[facility]OS 3 [facility] TEST INC INC VISUAL COLOR CMPRSN METHS URNLS DIP 10414 L[facility] LARA 2 DANIKA DANIKA STICK/TAB LET RGNT NON-AUTO W/O MICRSCP CYTP C/V 43818 PICKLESIM PICKLESIM AUTO THIN 2 ER JR SUMIT ER JR SUMIT LYR PREPJ SCR MNL RESCR PHYS THERAPEUT 47412 HYACINTH CLAROS IC PX 1/> 2 [facility] AREAS INC INC EACH 15 MIN EXERCISES APPL 06239 [facility]ACIN[facility] MODALITY 2 [facility] 1/> AREAS INC INC ELEC STIMJ UNATTENDE D APPLICATI 52508 HYAC[facility] ON 2 [facility] MODALITY INC INC 1/> AREAS HOT/COLD PACKS APPLICATI 96417 HYAC[facility] CL[facility] ON 2 [facility]OS[facility] MODALITY INC INC 1/> AREAS HOT/COLD PACKS APPL 45032 HYACIN[facility] MODALITY 2 [facility]OSP 1/> AREAS INC INC ELEC STIMJ UNATTENDE D THERAPEUT 87467 HYACINTH CLAROS IC PX 1/> 2 [facility] AREAS INC INC EACH 15 MIN EXERCISES APPL 83018 HYAC[facility] MODALITY 2 [facility] 1/> AREAS INC INC ELEC STIMJ EA 15 MIN THERAPEUT 71522 HYACINTH CLAROS IC PX 1/> 2 [facility] AREAS INC INC EACH 15 MIN EXERCISES APPL 34923 [facility] MODALITY 2 [facility] 1/> AREAS INC INC ELEC STIMJ UNATTENDE D APPLICATI 28147 [facility] ON 2 [facility] MODALITY INC INC 1/> AREAS HOT/COLD PACKS GENERAL 76808 COMBINED COMBINED HEALTH 2 PHYSICIAN PHYSICIAN PANEL S LA S LA LIPID 89991 COMBINED COMBINED PANEL 2 PHYSICIAN PHYSICIAN S LA S LA SEDIMENTA 74084 COMBINED COMBINED TION RATE 2 PHYSICIAN PHYSICIAN [place] [address] COMBINED COMBINED THYROXINE 2 PHYSICIAN PHYSICIAN TOTAL S LA S LA THYROID 65309 COMBINED COMBINED HORM 2 PHYSICIAN PHYSICIAN UPTK/THYR S LA S LA OID HORMONE BINDING RATIO PHYSICAL 58499 [facility] THERAPY 2 [facility] [place] N [address] [place] TRANSVAGI 2 DANIKA DANIKA NAL ORGANIC 07421 [facility] ACID 1 2 [facility] ROSS HEMOGLOBI 14227 [facility] 2 [facility] ASUNCION A1C GENERAL [address] [place] [address] [facility] HOMOCYSTE 2 [facility] NRV [facility] 88409 GUILLEN ANTONINO GUILLEN ANTONINO AMPLT&LAT 2 ENCY EA NRV MOTOR W/F-WAVE STD NRV [facility] 11214 GUILLEN ANTONINO GUILLEN ANTONINO AMPLITUDE 2 & LATENCY EACH NERVE SENSORY COLLECTIO 74706 [facility] VENOUS [address] [facility] VENIPUNCT URE CYANOCOBA 17068 [facility] SCOOTER [address] [place] [address] B-12 REMOVAL 76958 [facility] NON-BIODE 2 DANIKA DANIKA GRADABLE DRUG DELIVERY IMPLANT NEEDLE 42446 JONES TRA JONES TRA EMG EA 2 EXTREMTY W/PARASPI NL AREA COMPLETE NRV CNDJ 12536 JONES TRA JONES TRA AMPLT&LAT 2 ENCY EA NRV MOTOR W/F-WAVE STD NRV D 39966 JONES TRA JONES TRA AMPLITUDE 2 & LATENCY EACH NERVE SENSORY MRI 40933 JONES TRA JONES TRA SPINAL 2 CANAL CERVICAL W/O CONTRAST MATRL RADEX 54585 JONES TRA JONES TRA SPINE 2 CERVICAL 2 OR 3 VIEWS RADEX 34368 JONES TRA JONES TRA SPINE 2 THORACIC 2 VIEWS CUL BACT 09323 [facility] STOOL 2 [facility] AEROBIC INC INC ISOL SALMONELL A&[place] [address] [facility] CLOSTRIDI 2 [facility] [place] [address] [facility] GIARDIA 2 [facility] INC INC OVA&THUAN 60059 [facility] ITES 2 [facility] DIRECT INC INC SMEARS CONCENTRA TION & ID DRUG SCR G0434 [facility] NOT 2 CHROMATOG RAPHIC; ANY NUMBER PT ENC ANES 95834 [facility] LOWER 2 ANESTH INTESTINE OF THE [place] [address] PATHOLOGY [facility] PAT SURG 2 & PATHOLOGY CYTOLOGY LAB GROSS&[place] [address] [facility] INFUSION 2 [facility] THERAPY/P INC INC ROPHYLAXI S /DX 1ST TO 1 HR BLOOD 64781 [facility] COUNT 2 [facility] COMPLETE INC INC AUTO&AUTO DIFRNTL WBC EGD 62000 [facility] ANT [facility] ANT TRANSORAL 2 BIOPSY SINGLE/MU LTIPLE CUL 17504 [facility] PRSMPTV 2 [facility] PTHGNC INC INC ORGANISMS SCR DNS CHART SPECIAL 41411 PATHOLOGY [facility] PAT STAIN 2 & GROUP 1 CYTOLOGY MICROORGA LAB NISMS I&R SPCL STN 90007 PATHOLOGY [facility] PAT 2 I&R 2 & EXCPT CYTOLOGY MICROORG/ LAB ENZYME/IM CYT COLONOSCO 48323 A[facility] ANT ADEOLA ANT PY 2 W/BIOPSY SINGLE/[place] FLX 57020 [facility] ANT ADEOLA ANT W/RMVL 2 [place] [address] [facility] ABDOMEN & 2 MEDICAL EDIS PELVIS IMAGING W/O ASS CONTRAST MATERIAL URNLS DIP 20665 [facility] 2 [facility] STICK/TAB INC INC [place] [address] [facility] LIPASE 2 [place] [address] [facility] AMYLASE 2 [facility] INC INC COMPREHEN 74810 [facility] SIVE 2 [facility] METABOLIC INC INC PANEL URINE 94392 [facility] 2 [facility] TEST INC [place] [address] [facility] INFUSION 2 [facility] THERAPY INC INC PROPHYLAX IS/[place] [address] [facility] ABDOMEN & 2 [facility] PELVIS INC INC W/O CONTRAST MATERIAL URNLS DIP 89792 OAKES OAKES 2 LC LC STICK/TAB LET RGNT NON-AUTO W/O MICRSCP DRUG SCR G0434 [facility]BDI NOT 1 CHROMATOG RAPHIC; ANY NUMBER PT ENC PRESSURIZ 03367 [facility] ED/NONPRE 1 [facility] SSURIZED INC INC INHALATIO N TREATMENT RADIOLOGI 14015 [facility] C EXAM 1 MEDICAL EDIS CHEST 2 IMAGING VIEWS ASS FRONTAL&L ATERAL INJECTION 28905 [facility] BRAVO [facility]AM 1 SINGLE/ML T TRIGGER POINT 3/> MUSCLES FLUOR 74590 [facility] NEEDLE/CA 1 TH SPINE/PAR ASPINAL DX/[place]X [address] [facility] B[facility]VO [facility] DX/THER 1 SBST EPIDURAL/ SUBARACH LUMBAR/SA CRAL OPHTH 15845 JIMMIE SCIFRES MEDICAL 1 VISION ANG XM&EVAL COMPRE NEW PT 1/> VST MRI 17155 [facility]UR[facility] [place] SPINAL 1 NOSTICPSC ROL CANAL LUMBAR W/O CONTRAST MATERIAL RADEX 53823 CENTRAL JARVIS SPINE 1 [place] LC LUMBOSACR ORTHOPAED AL 2/3 [facility] VIEWS PRESSURIZ 00742 [facility] ED/NONPRE 1 [facility] SSURIZED INC INC INHALATIO N TREATMENT US BREAST 34434 PAYAL MILES REAL 1 MEDICAL EDIS TIME IMAGING W/[place] L[place] [address] CHIPPS KIRK ANNA SURG 1 KIAH & PATHOLOGY DUBILIER GROSS&ANNA ROSCOPIC EXAM HYSTEROSC 03300 [facility]ACIN[facility] CL[facility]OS OPY BX 1 [facility] ENDOMETRI INC INC UM&/POLYP C W/WO D&C HYSTEROSC 6812 [facility] OPY 1 [facility] INC INC OTHER 6909 HYACINTH CLAROS DILATION 1 [facility] AND INC INC CURETTAGE OF UTERUS ANES 26485 [facility] HYSTEROSC 1 ANESTH ADRIANA OPY&/HYST OF THE EROSALPIN BLUE GOGRAPHY W/[place] [address] HYACIN[facility] INFUSION 1 [facility] THERAPY INC INC PROPHYLAX IS/DX EA HOUR GONADOTRO 08769 [facility] PIN 1 [facility] CHORIONIC INC INC QUALITATI VE BLOOD 02081 [facility] COUNT 1 [facility] COMPLETE INC INC AUTO&[place] [address] [facility] TRANSVAGI 1 [facility] CYTP C/V 96051 PATHOLOGY PATHOLOGY AUTO THIN 0 & & LYR CYTOLOGY CYTOLOGY PREPJ SCR LAB LAB MNL RESCR PHYS IADNA 48406 PATHOLOGY PATHOLOGY NEISSERIA 0 & & CYTOLOGY CYTOLOGY GONORRHOE LAB LAB AE AMPLIFIED PROBE TQ IADNA 55007 PATHOLOGY PATHOLOGY CHLAMYDIA 0 & & CYTOLOGY CYTOLOGY TRACHOMAT LAB LAB IS AMPLIFIED PROBE TQ ETONOGEST J7307 [facility] REL 0 [facility] ADNIKA CNTRACPT CLINIC OF IMPL SYS [place] INCL IMPL & SPL INSERTION 07228 [facility] 0 [facility] IMPLANTAB [facility] [place] CONTRACEP TIVE CAPSULES URINE 52600 [facility] 0 [facility] TEST [facility] VISUAL [place] COLOR CMPRSN METHS URINE 91301 [facility]ACIN[facility] CLAROS 0 [facility] TEST INC INC VISUAL COLOR CMPRSN METHS RADIOLOGI 07492 Imer MONTAGUE EXAM 0 MEDICAL RANI Pierson CHEST 2 IMAGING VIEWS ASSOCIATE FRONTAL&L S ATERAL LEVONORGE J7302 [facility], STREL-RLS 9 [facility] ACCESS HOSPITALK J E CLINIC OF INTRAUTER N [place] [facility] 52 MG INSERTION 39873 [facility], 9 [facility] J INTRAUTER CLINIC OF INE DEVICE [place] IUD PLLC URINE 25850 [facility], 9 [facility] HOSPIT[facility] J TEST CLINIC OF VISUAL COLOR [place] CMPRSN PLL[facility] METHS COMPREHEN 48850 [facility]IN[facility] SIVE 9 [facility] METABOLIC INC INC PANEL CYTP C/V 25974 PATHOLOGY PATHOLOGY AUTO THIN 9 & & LYR CYTOLOGY CYTOLOGY PREPJ SCR LAB LAB MNL RESCR PHYS BLOOD 06354 HYACIN[facility]OS COUNT 9 [facility] COMPLETE INC INC AUTO&AUTO DIFRNTL [facility]BC [facility] 56698 [facility], DISCHARGE 9 CARE [facility] DAY ASSOCIATE MANAGEMEN S T 30 MIN/< CIRCUMCIS 77821 [facility] 9 [facility] W/CLAMP/O ASSOCIATE TH DEV S W/BLOCK SUBQ [address] PER ASSOCIATE DAY E/M S NORMAL SUBQ 14518 [facility] 9 [facility] CARE PER ASSOCIATE DAY E/M S NORMAL 66481 [facility], DELIVERY 9 [facility] ONLY CLINIC OF W/POSTPAR IVAN CARE [place] PLL[facility] LOW 741 HYACINTH CLAROS CERVICAL 9 [facility] INC INC SECTION 43678 KING CARIAS, DELIVERY 9 ARETHA HERNANDEZ ANESTHESI 52043 [facility] Tato MCDANIEL 9 ANESTH LESLEY F OF THE DELIVERY [place] ONLY 1ST 42851 FAMILY NIKITA, HOSP/JIMBO 9 CARE R CHRISTINE MILLARD [facility] [place] [address] [facility], 9 [facility] J UTERUS CLINIC OF LIMITED 1/> [place] [facility] DOPPLER 33508 [facility], VELOCIMET 9 [facility] J RY CLINIC OF UMBILICAL ARTERY [place] [facility] 61651 [facility], BIOPHYSIC 9 [facility] J AL CLINIC OF PROFILE W/O [place] NON-STRES [facility] S TESTING 83656 [facility], BIOPHYSIC 9 [facility] J AL CLINIC OF PROFILE W/O [place] NON[facility] S TESTING DOPPLER 21237 [facility], VELOCIMET 9 [facility] J RY [facility] [place] [facility] [place] PREG 07150 [facility], UTERUS 9 [facility] J REAL TIME CLINIC OF F/U TRNSABDL [place] [facility] [place] [address] [facility], 9 [facility] J UTERUS CLINIC OF LIMITED 1/> [place] [facility] DOPPLER 84777 [facility], VELOCIMET 9 [facility] J RY [facility] [place] [facility] 53510 [facility], BIOPHYSIC 9 [facility] J AL CLINIC OF PROFILE W/O [place] NON[facility] S TESTING 34521 [facility], BIOPHYSIC 9 [facility] J AL CLINIC OF PROFILE W/O [place] NON[facility] S TESTING BASIC 94747 HYACINTH SORIANO 9 [facility] PANEL INC INC CALCIUM TOTAL DOPPLER 61455 [facility], VELOCIMET 9 [facility] J RY [facility] [place] [facility] TRANSFERA 12534 HYACINTH CLAROS SE 9 [facility] ASPARTATE INC INC AMINO AST SGOT TRANSFERA 40816 HYACINTH CLAROS SE 9 [facility] ALANINE INC INC AMINO ALT SGPT FIBRIN 94133 HYACINTH CLAROS DGRADJ 9 [facility] PRODUCTS INC INC D-DIMER QUAL/SEMI LACI FIBRINOGE 88561 [facility]IN[facility] N 9 [facility] ACTIVITY INC INC PROTHROMB 88645 HYACINTH CLAROS IN TIME 9 [place] [address] HYACINTH CLAROS BLOOD/URI 9 [facility] C ACID INC INC THROMBOPL 21847 [facility]IN[facility] CL[facility]OS ASTIN 9 [facility] TIME INC INC PARTIAL PLASMA/[place] PREG 96312 [facility], UTERUS 9 [facility] J REAL TIME CLINIC OF F/U TRNSABDL [place] [facility] BLOOD 31368 HYACINTH CLAROS COUNT 9 [facility] COMPLETE INC INC AUTO&AUTO DIFRNTL WBC OBSERVATI 37392 KING CARIAS, ON/INPATI 9 ARETHA [facility] HOSPITAL CARE 55 MINUTES 40414 HYACINTH CLAROS NONSTRESS 9 [facility] TEST INC INC URNLS DIP 82415 HYACINTH CLAROS 9 [facility] STICK/TAB INC INC LET REAGENT AUTO MICROSCOP Y DOPPLER 21895 [facility], VELOCIMET 9 [facility] J RY [facility] [place] [facility] 07488 [facility], BIOPHYSIC 9 [facility]ALTH [facility] Lott AL CLINIC OF PROFILE W/O [place] NON[facility] S TESTING BLD GLU A4253 [facility] TEST/REAG 9 PHARMACY PHARMACY T STRIPS #591 #591 HOME BLD GLU MON-50 [place] PREG 42752 [facility], UTERUS 9 [facility] J REAL TIME CLINIC OF F/U TRNSABDL [place] PER [facility] [place] 87207 [facility], UTERUS 9 [facility] J REAL TIME CLINIC OF F/U TRNSABDL [place] PER [facility] CUL BACT 16646 COMBINED COMBINED XCPT 9 PHYSICIAN PHYSICIAN URINE S LAB S LAB BLOOD/STO OL AEROBIC ISOL 31823 [facility], BIOPHYSIC 9 [facility] J AL CLINIC OF PROFILE W/O [place] NON[facility] S TESTING DOPPLER 13255 [facility], VELOCIMET 9 [facility] J RY [facility] [place] [facility] DOPPLER 31334 [facility], VELOCIMET 9 [facility] J RY [facility] [place] [facility] 16203 [facility], BIOPHYSIC 9 [facility]ALTH [facility] J AL CLINIC OF PROFILE W/O [place] NON[place] [place] 91782 [facility], UTERUS 9 [facility] J REAL TIME CLINIC OF F/U TRNSABDL [place] PER [facility] [place] 13824 [facility] UTERUS 9 [facility] REAL TIME HOSP HOSP F/U TRNSABDL PER FETUS CUL BACT 42281 COMBINED COMBINED XCPT 9 PHYSICIAN PHYSICIAN URINE S LAB S LAB BLOOD/STO OL AEROBIC ISOL ANTIBODY 97952 COMBINED COMBINED CHLAMYDIA 9 PHYSICIAN [place]YSIC[place] P[place] 47920 [facility] UTERUS 9 [facility] REAL TIME HOSP HOSP F/U TRNSABDL PER FETUS RADIOLOGI 65390 [place] Imer TRIPLETT 9 MEDICAL RANI Pierson EXAMINATI IMAGING ON CHEST ASSOCIATE SINGLE S VIEW FRONTAL 01547 [facility], NONSTRESS 9 [facility] J TEST CLIN[facility] OF [place] [facility] 80830 [facility], NONSTRESS 9 [facility] J TEST [facility] OF [place] [facility] URNLS DIP 89622 HYACINTH CLAROS 9 [facility] STICK/TAB INC INC LET [place]AG[place] P[place] 96125 [facility] UTERUS 9 [facility] REAL TIME HOSP HOSP F/U TRNSABDL PER FETUS BLD GLU A4253 [facility] TEST/REAG 8 PHARMACY PHARMACY T STRIPS #591 #591 HOME BLD GLU MON-50 US PREG 21939 [facility] UTERUS 8 [facility] W/DETAIL HOSP HOSP ANISH 1ST GESTATION DIAB G0109 [facility] SELF-MGMT 8 [facility] TRN [facility] HOSP GROUP SESSION PER 30 MIN URNLS DIP 11778 DHS/CO HYACINTH [address] [place] [address] HEALTH STICK/TAB [facility]AL CENTER LET RGNT BANK ACCT NON-AUTO W/O MICRSCP ALPHA-FET 30165 [facility] OF [facility] OF OPROTEIN 8 [facility] [place] [address] [facility] OF [facility] OF ESTRIOL 8 [facility] GONADOTRO 24524 [facility] OF [facility] OF PIN 8 [facility] CHORIONIC QUANTITAT ROSS GLUC BLD 36575 [facility] GLUC MNTR [address] [place] [address] DEV [facility] CLEARED BANK ACCT FDA SPEC HOME USE URNLS DIP 52827 [facility]/CO HYACINTH [address] [place] [address] HEALTH STICK/TAB [facility]ENTRAL CENTER LET RGNT BANK ACCT NON-AUTO W/O MICRSCP CYTP 48769 [facility] CERV/VAG [address] [place] [address] AUTO THIN [facility] LAYER BANK ACCT PREP MNL SCREEN BLOOD 89567 [facility] TYPING 8 [facility] INC SEROLOGIC RH (D) ANTIBODY 39314 [facility] OF [facility] OF SCREEN [address] [place] [address] RBC EACH SERUM TECHNIQUE BLOOD 57378 [facility] OF TYPING [address] [place] [address] INC SEROLOGIC ABO IADNA 36737 [facility] NEISSERIA [address] [place] [address] CENTER GONORRHOE BANK AC[place] AM[place] [address] [facility] HEPATITIS [address] [place] [address] B CENTRAL CENTER SURFACE BANK ACCT ANTIGEN SYPHILIS 34167 [facility] TEST [address] [place] [address] NON-TREPO [facility] NEMAL BANK ACCT ANTIBODY QUAL COLLECTIO 76342 [facility] N VENOUS [address] [place] [address] BLOOD [facility] VENIPUNCT BANK ACCT URE IADNA 42440 [facility] CHLAMYDIA [address] [facility] TRACHOMAT BANK ACCT IS AMPLIFIED PROBE TQ ANTIBODY 99376 [facility]/CO HYACINTH RUBELLA [address] [facility] BANK ACCT BLOOD 45825 HYACINTH CLAROS COUNT 8 [facility] COMPLETE INC INC AUTO&AUTO DIFRNTL WBC CULTURE 89128 HYACINTH CLAROS BACTERIAL 8 [facility] INC INC QUANTTATI [place] [address]2798 PAYAL UZIEL, UTERUS 8 MEDICAL RANI P REAL TIME IMAGING W/IMAGE ASSOCIATE DCMTN S TRANSVAG GONADOTRO 61937 HYACINTH CLAROS PIN 8 [facility] CHORIONIC INC INC QUANTITAT ROSS URNLS DIP 02753 HYACINTH CLAROS 8 [facility] STICK/TAB INC INC LET REAGENT AUTO MICROSCOP Y URNLS DIP 58361 HYACINTH CLAROS 8 [facility] STICK/TAB INC INC [place] [address] HYACINTH CLAROS LIPASE 8 [facility] INC INC [place] P[place] 73944 HYACINTH CLAROS UTERUS 8 [facility] REAL TIME INC INC W/IMAGE DCMTN TRANSVAG COMPREHEN 45064 HYACINTH CLAROS SIVE 8 [facility] [place] [address] HYACINTH CLAROS AMYLASE 8 [facility] INC INC URINE 91808 HYACINTH CLAROS 8 [facility] TEST INC INC VISUAL COLOR CMPRSN METHS CULTURE 54320 HYACINTH GARCIAON BACTERIAL 8 [facility] INC INC QUANTTATI VE COLONY COUNT URINE BLOOD 43584 HYACINTH GARCIAON COUNT 8 [facility] COMPLETE INC INC AUTO&AUTO DIFRNTL WBC Encounters Encounter Start End Date Code Location Performer Type Date OFFICE 21104 M[facility] COBIAN OUTPATIEN 7 7 DIABETIC T VISIT CENTER, 25 P MINUTES OFFICE 83959 JAQUELIN VILLEGAS OUTPATIEN 7 7 N FAMILY T VISIT CHIROPRAC 10 T MINUTES OFFICE 18757 [facility] COBIAN OUTPATIEN 6 6 DIABETIC T VISIT CENTER, 15 P MINUTES HOSPITAL HYACINTH - 6 6 [facility] OUTPATIEN INC T OFFICE 74926 OLYA DOBSON OUTPATIEN 6 6 [facility] E[facility] T VISIT 15 MINUTES OFFICE 54933 [facility] JEANINE OUTPATIEN 6 6 PHYSICIAN T VISIT S GROUP 25 MINUTES OFFICE 29558 OLYA DOBSON OUTPATIEN 6 6 [facility] T VISIT 15 MINUTES OFFICE 71522 MATE[facility] ARANZA OUTPATIEN 6 6 DIABETIC T VISIT CENTER, 25 P MINUTES OFFICE 05426 OLYA DOBSON OUTPATIEN 6 6 [facility] T VISIT 15 MINUTES OFFICE 85243 OLYA DOBSON OUTPATIEN 6 6 [facility] T VISIT 15 MINUTES HOSPITAL HYACINTH - 6 6 [facility] OUTPATIEN INC T OFFICE 19416 OLYA DOBSON OUTPATIEN 6 6 [facility] T VISIT 15 MINUTES OFFICE 91493 MATEO COBIAN SOB OUTPATIEN 6 6 DIABETIC T VISIT CENTER, 25 P MINUTES OFFICE 64493 WILLIEGORDON ARANZA WOLF OUTPATIEN 6 6 DIABETIC T VISIT 5 CENTER, MINUTES P OFFICE 26646 JAQUELIN VILLEGAS OUTPATIEN 6 6 N FAMILY RANDY T VISIT CHIROPRAC 10 T MINUTES OFFICE 25099 OLYA DOBSON OUTPATIEN 6 6 [facility] T VISIT 15 MINUTES OFFICE 22219 [facility] MARCO OUTPATIEN 6 6 PHYSICIAN DANIKA T VISIT S GROUP 15 MINUTES OFFICE 00917 OLYA DOBSON OUTPATIEN 6 6 [facility] T VISIT 15 MINUTES OFFICE 36171 MATEO COBIAN SOB OUTPATIEN 6 6 DIABETIC T VISIT CENTER, 15 P MINUTES EMERGENCY 10400 JUSTINA SANCHEZ 5 5 PHYSICIAN DEPARTMEN S, PLLC T VISIT HIGH/URGE NT SEVERITY OFFICE 18580 OLYA DOBSON OUTPATIEN 5 5 [facility] T VISIT 15 MINUTES OFFICE 60262 JAQUELIN VILLEGAS OUTPATIEN 5 5 N FAMILY RANDY T VISIT CHIROPRAC 10 T MINUTES OFFICE 88786 MATEO WOLF OUTPATIEN 5 5 DIABETIC T VISIT CENTER, 25 P MINUTES OFFICE 77000 [facility] LARA OUTPATIEN 5 5 PHYSICIAN DANIKA T VISIT S GROUP 15 MINUTES EMERGENCY 94943 JUSTINA TELLEZ 5 5 PHYSICIAN DEPARTMEN S, [facility] T VISIT MODERATE SEVERITY EMERGENCY 95766 [facility] 5 5 [facility] DEPARTMEN INC T VISIT LIMITED/M INOR PROB HOSPITAL HYACINTH - 5 5 [facility] OUTPATIEN INC T HOSPITAL HYACINTH - 5 5 [facility] OUTPATIEN INC T HOSPITAL HYACINTH - 5 5 [facility] OUTPATIEN INC T HOSPITAL HYACINTH - 5 5 [facility] OUTPATIEN INC T EMERGENCY 07327 [facility] 5 5 [facility] DEPARTMEN INC T VISIT MODERATE SEVERITY EMERGENCY 13879 JUSTINA SOLORZANO 5 5 PHYSICIAN ANNA DEPARTMEN S, [facility] T VISIT HIGH/URGE NT SEVERITY HOSPITAL HYACINTH - 5 5 [facility] OUTPATIEN INC T HOSPITAL HYACINTH - 5 5 [facility] OUTPATIEN INC T OFFICE 36492 MATEO PEDROZA OUTPATIEN 5 5 FOOT & N SHABNAM T VISIT ANKLE CE 15 MINUTES OFFICE 85937 OLYA DOBSON OUTPATIEN 5 5 [facility] T VISIT 15 MINUTES OFFICE 15179 [place] [facility]TS[facility]E OUTPATIEN 5 5 DIABETIC R TAR T VISIT CENTER 25 MINUTES EMERGENCY 61610 JUSTINA SOLORZANO 5 5 PHYSICIAN ANNA DEPARTMEN S, PLLC T VISIT MODERATE SEVERITY OFFICE 00301 [facility] SCHULSTAD OUTPATIEN 5 5 PHYSICIAN CAM T VISIT S GROUP 10 MINUTES HOSPITAL HYACINTH - 5 5 [facility] OUTPATIEN INC T OFFICE 31935 [facility] OJEDA OUTPATIEN 5 5 PHYSICIAN MARGOTH T VISIT S GROUP 15 MINUTES OFFICE 57172 [facility] SCHULSTAD OUTPATIEN 5 5 PHYSICIAN CAM T VISIT S GROUP 15 MINUTES EMERGENCY 84205 JUSTINA SOLORZANO 5 5 PHYSICIAN ANNA DEPARTMEN S, PLLC T VISIT HIGH/URGE NT SEVERITY OFFICE 33847 [facility] OJEDA OUTPATIEN 5 5 PHYSICIAN MARGOTH T VISIT S GROUP 15 MINUTES OFFICE 54457 [facility] OJEDA OUTPATIEN 5 5 PHYSICIAN MARGOTH T NEW 20 S GROUP MINUTES HOSPITAL HYACINTH - 5 5 [facility] OUTPATIEN INC T EMERGENCY 36907 JUSTINA ULLOA 5 5 PHYSICIAN LINARES DEPARTMEN S, PLLC T VISIT HIGH/URGE NT SEVERITY OFFICE 20867 OLYA DOBSON OUTPATIEN 5 5 [facility] T VISIT 15 MINUTES HOSPITAL HYACINTH - 5 5 [facility] OUTPATIEN INC T OFFICE 91469 MATEO COBIAN SOB OUTPATIEN 5 5 DIABETIC T VISIT CENTER, 25 P MINUTES OFFICE 34631 [facility] YMAN OUTPATIEN 5 5 PHYSICIAN EUG T VISIT S GROUP 10 MINUTES OFFICE 96215 [facility] JEANINE OUTPATIEN 5 5 PHYSICIAN ANNA T VISIT S GROUP 15 MINUTES OFFICE 72954 HYACINTH PAIZ OUTPATIEN 5 5 [facility]IAL ANNA T VISIT HOSPITAL 15 MINUTES OFFICE 34927 MATEO FRANCOSTURATLeticia WOLF OUTPATIEN 5 5 DIABETIC T VISIT CENTER [address] PEDROZA OUTPATINICHOLAS 5 5 DANIEL Leon SHABNAM T VISIT MIRTA 15 DPM PSC MINUTES OFFICE 59109 OLYA DOBSON OUTPATIEN 5 5 [facility] T VISIT 15 MINUTES HOSPITAL HYACINTH - 5 5 [facility] OUTPATIEN INC T HOSPITAL CENTRAL - 5 5 [facility] OUTPATIEN HOSP T OFFICE 09504 [facility] OUTPATIEN 5 5 HEALTH AYAD T VISIT MEDICAL 40 GROUP MINUTES OFFICE 60406 JAQUELIN VILLEGAS OUTPATIEN 5 5 N FAMILY RANDY T VISIT CHIROPRAC 10 T MINUTES OFFICE 95849 [facility] MARCO OUTPATIEN 4 4 PHYSICIAN DANIKA T VISIT S GROUP 15 MINUTES OFFICE 64237 OLYA DOBSON OUTPATIEN 4 4 [facility] T VISIT 15 MINUTES OFFICE 65629 CENTRAL JONES TRA OUTPATIEN 4 4 [place] T VISIT ORTHOPAED 15 [facility] MINUTES OFFICE 36619 [facility] CONSULTAT 4 4 NEUROLOGY AYAD ION NEW/ESTAB CONSULTAN PATIENT T 60 MIN OFFICE 86428 [facility] SHANEPATIEN 4 4 PHYSICIAN T VISIT S GROUP 25 MINUTES OFFICE 58030 OLYA DOBSON OUTNATALIE 4 4 MECRY [facility] T VISIT 15 MINUTES OFFICE 77105 CENTRAL JONES TRA OUTPATIEN 4 4 [place] T VISIT ORTHOPAED 15 [facility] MINUTES OFFICE 83683 OLYA PAL 4 4 [facility] T VISIT 15 MINUTES EMERGENCY 54504 [facility] 4 4 TRUDI DEPARTMEN EMERGENCY T VISIT PHYS HIGH/URGE NT SEVERITY OFFICE 89337 MATEO PEDROZA OUTPATIEN 4 4 FOOT & N SHABNAM T VISIT ANKLE CE 15 MINUTES OFFICE 75378 JONES TRA JONES TRA OUTPATIEN 4 4 T VISIT 15 MINUTES OFFICE 04670 MATEO HAZELSO OUTPATIEN 4 4 FOOT & N SHABNAM T NEW 30 ANKLE CE MINUTES OFFICE 64699 OLYA LYNNPATIEN 4 4 [facility] T VISIT 15 MINUTES OFFICE 10113 BAKARI VILLEGAS OUTPATIEN 4 4 RANDY RANDY T VISIT 10 MINUTES EMERGENCY 22158 JEANINE SOLORZANO 4 4 ANNA ANNA DEPARTMEN T VISIT HIGH/URGE NT SEVERITY OFFICE 89530 OLYA DOBSON OUTPATIEN 4 4 [facility] T VISIT 15 MINUTES OFFICE 90001 BAKARI VILLEGAS OUTPATIEN 4 4 RANDY RANDY T VISIT 10 MINUTES OFFICE 09412 BAKARI VILLEGAS OUTPATIEN 4 4 RANDY RANDY T VISIT 10 MINUTES OFFICE 86820 [facility] OUTPATIEN 4 4 DANIKA DANIKA T VISIT 15 MINUTES HOSPITAL HYACINTH - 4 4 [facility] OUTPATIEN INC T OFFICE 52201 BAKARI VILLEGAS OUTPATIEN 4 4 RANDY RANDY T NEW 30 MINUTES OFFICE 48989 OLYA PAL 4 4 [facility] T VISIT 15 MINUTES OFFICE 58341 OLYA DOBSON OUTPATIEN 4 4 [facility] T VISIT 15 MINUTES OFFICE 37258 OLYA DOBSON OUTPATINICHOLAS 4 4 [facility] T VISIT 15 MINUTES PERIODIC 71910 [facility] PREVENTIV 4 4 DANIKA DANIKA E MED EST PATIENT 18-39 YRS OFFICE 60681 OLYA DOBSON OUTPATIEN 3 3 [facility] T VISIT 15 MINUTES EMERGENCY 26250 [facility] N[facility] 3 3 DEPARTMEN T VISIT MODERATE SEVERITY OFFICE 11-27-201 11-27-201 09614 ADEOLA VILLALTA ADEOLA ANT OUTPATIEN 3 3 T VISIT 15 MINUTES OFFICE 70708 OLYA DOBSON OUTPATIEN 3 3 [facility] T VISIT 15 MINUTES EMERGENCY 04569 JEANINE SOLORZANO 3 3 ANNA ANNA DEPARTMEN T VISIT HIGH/URGE NT SEVERITY HOSPITAL HYACINTH - 3 3 [facility] OUTPATIEN INC T OFFICE 23704 ADEOLA ANT ADEOLA ANT OUTPATIEN 3 3 T VISIT 25 MINUTES OFFICE 85613 WILMER MUÑIZ OUTPATIEN 3 3 T VISIT 25 MINUTES HOSPITAL HYACINTH - 3 3 [facility] OUTPATIEN INC T EMERGENCY 56198 LUZ ESCOBAR DEPT 3 3 III FIDE III FIDE VISIT HIGH SEVERITY& THREAT [facility] EMERGENCY 81431 HYACINTH 3 3 [facility] DEPARTMEN INC T VISIT MODERATE SEVERITY HOSPITAL HYACINTH - 3 3 [facility] OUTPATIEN INC T OFFICE 52806 NITESHVICKEY OLYA REIDEN 3 3 [facility] T VISIT 15 MINUTES OFFICE 84827 NITESHVICKEY OLYA PAL 3 3 [facility] T VISIT 15 MINUTES OFFICE 31450 GUILLEN ANTONINO MUÑIZ OUTPATIEN 3 3 T VISIT 15 MINUTES HOSP[facility] - 3 3 [facility] T OFFICE 30188 ADEOLA ANT ADEOLA ANT OUTPATIEN 3 3 T VISIT 25 MINUTES EMERGENCY 51467 SHAUN RASHID DEPT 3 3 EMERGENCY FIDE VISIT SERVICES HIGH SEVERITY& THREAT [facility]ACIN[facility] - 3 3 [facility] T EMERGENCY 00139 [facility] 3 3 [facility] T VISIT LOW/MODER SEVERITY OFFICE 41634 WILMER GUILLEN ANTONINO OUTPATIEN 2 2 T VISIT 15 MINUTES OFFICE 95185 OLYA DOBSON OUTPATIEN 2 2 [facility] 15 MINUTES OFFICE 19085 OLYA DOBSON OUTPATIEN 2 2 [facility] T VISIT 15 MINUTES OFFICE 43147 ADEOLA ANT ADEOLA ANT OUTPATIEN 2 2 T VISIT 15 MINUTES PERIODIC 88949 [facility] PREVENTIV 2 2 DANIKA DANIKA E MED EST PATIENT 18-39 YRS OFFICE 70943 [facility] OUTPATIEN 2 2 [facility] SLEEP T VISIT AND [facility]HA 10 MINUTES HOSPITAL [facility]ACIN[facility] 2 2 [facility] 73983 WILMER MUÑIZ WILMER MUÑIZ OUTPATIEN 2 2 T VISIT 25 MINUTES OFFICE 14205 OLYA OLYA OUTPATIEN 2 2 [facility] - 2 2 [facility] 19662 [facility] OUTPATIEN 2 2 DANIKA DANIKA T VISIT 15 MINUTES OFFICE 42108 OLYA DOBSON OUTPATIEN 2 2 [facility] T VISIT 15 MINUTES OFFICE 04445 [facility] HILARIO II OUTPATIEN 2 2 [facility] SLEEP VINCENT T NEW 30 AND REHA MINUTES OFFICE 83507 OLYA DOBSON OUTPATIEN 2 2 [facility] T VISIT 15 MINUTES OFFICE 77040 [facility] OUTPATIEN 2 2 DANIKA DANIKA T VISIT 25 MINUTES HOSPITAL [facility] - 2 2 [facility] T OFFICE 03472 GUILLEN ANTONINO MUÑIZ OUTPATIEN 2 2 T NEW 45 MINUTES OFFICE 72540 ADEOLA ANT ADEOLA ANT OUTPATIEN 2 2 T VISIT 25 MINUTES OFFICE 42032 SAMARIA MERA LANI OUTPATIEN 2 2 T NEW 30 MINUTES OFFICE 07165 SAMARIA MERA LANI CONSULTAT 2 2 ION NEW/ESTAB PATIENT 40 MIN OFFICE 75353 JONES TRA JONES TRA OUTPATIEN 2 2 T VISIT 15 MINUTES OFFICE 12357 JONES TRA JONES TRA OUTPATIEN 2 2 T VISIT 10 MINUTES OFFICE 76304 JONES TRA JONES TRA OUTPATIEN 2 2 T VISIT 15 MINUTES OFFICE 88421 OLYA DOBSON OUTPATIEN 2 2 [facility] T VISIT 15 MINUTES [facility] - 2 2 [facility] T OFFICE 28767 [facility] 2 2 T VISIT 15 MINUTES OFFICE 97435 ADEOLA ANT ADEOLA ANT OUTPATIEN 2 2 T VISIT 25 MINUTES OFFICE 79517 [facility] 2 2 T VISIT 15 MINUTES EMERGENCY 32451 [facility] 2 2 [facility] T VISIT MODERATE SEVERITY EMERGENCY 20514 SHAUN HOLLAND DEPT 2 2 EMERGENCY VISIT SERVICES HIGH SEVERITY& THREAT [facility]AC[facility] - 2 2 [facility] T OFFICE 39186 ADEOLA ANT ADEOLA ANT OUTPATIEN 2 2 T NEW 45 MINUTES OFFICE 32131 JEANINE SOLORZANO OUTPATIEN 2 2 ANNA ANNA T NEW 20 MINUTES OFFICE 20680 [facility] 2 2 T VISIT 15 MINUTES [facility] - 2 2 [facility] T OFFICE 46753 [facility] OUTPATIEN 2 2 [facility] 10 HOSPITAL MINUTES P OFFICE 80267 OLYA DOBSON OUTPATIEN 1 1 [facility] T VISIT 15 MINUTES OFFICE 63512 [facility] 1 1 T VISIT 15 MINUTES OFFICE 70674 [facility] 1 1 T VISIT 15 MINUTES EMERGENCY 01550 [facility] 1 1 [facility] T VISIT MODERATE SEVERITY EMERGENCY 51618 LIANG MARGOTH LIANG MARGOTH 1 1 DEPARTMEN T VISIT HIGH/URGE NT SEVERITY HOSPITAL [facility] - 1 1 [facility] INC T OFFICE 45814 [facility] 1 1 T VISIT 15 MINUTES OFFICE 11463 [facility] 1 1 T VISIT 15 MINUTES OFFICE 10969 [facility] 1 1 T VISIT 15 MINUTES OFFICE 28880 [facility] 1 1 T VISIT 15 MINUTES OFFICE 60386 OLYA DOBSON OUTPATIEN 1 1 [facility] T [facility]ISIT 15 MINUTES OFFICE 98328 [facility] OUTPATIEN 1 1 [place] [facility] 15 [facility] MINUTES OFFICE 49427 [facility] CONSULTAT 1 1 [place] [facility] NEW/ESTAB [facility] PATIENT 40 MIN EMERGENCY 02431 SHAUN PEREYRA 1 1 [facility] T VISIT HIGH/URGE NT SEVERITY EMERGENCY 11527 [facility] 1 1 [facility] T VISIT MODERATE SEVERITY [facility] - 1 1 [facility] T [facility] - 1 1 [facility] [facility] OFF[facility] [id number] [facility] OUT[facility] 1 1 [facility] T VISIT CLINIC OF 15 [place] MINUTES EMERGENCY 23589 SHAUN ESCOBAR 1 1 EMERGENCY III [facility] SERVICES T VISIT HIGH/URGE NT SEVERITY EMERGENCY 78327 HYACINTH 1 1 [facility] T VISIT LOW/MODER SEVERITY HOSPITAL HYACINTH - 1 1 [facility] [id number] [facility] 1 1 [facility] T VISIT CLIN[facility] OF 15 [place] MINUTES [facility] HYACINTH - 1 1 [facility] 1 1 [facility] OFF[facility] 33652 OLYA DOBSON OUTPATIEN 1 1 [facility]ES OFFICE 78829 [facility]PATIEN 1 1 [facility] T VISIT CLINIC OF 15 [place] MINUTES [facility] 12529 [facility] PREVENTIV 0 0 [facility] E MED EST CLINIC OF PATIENT ROLAND 18-39 YRS [facility] HYACINTH - 0 0 [facility] EMERGENCY 62967 SHAUN ESCOBAR 0 0 EMERGENCY III, DEPARTMEN SERVICES [facility]LEY T VISIT HIGH/URGE ASSOCIATE NT S SEVERITY EMERGENCY 56879 HYACINTH 0 0 [facility] T VISIT LOW/MODER SEVERITY OFFICE 69118 [facility], OUTPATIEN 9 9 [facility] J T VISIT CLINIC OF [address] [facility] EMERGENCY 33817 HYACINTH 9 9 [facility] T VISIT LIMITED/M INOR PROB EMERGENCY 46370 SHAUN HERNANDEZ, 9 9 EMERGENCY GOSIA R DEPARTMEN SERVICES T VISIT HIGH/URGE ASSOCIATE NT S SEVERITY [facility] HYACINTH - 9 9 [facility] HYACINTH [facility] 9 9 [facility] OFFICE 62728 [facility] OUTPATIEN 9 9 [facility] J T VISIT CLINIC OF 25 MINUTES [facility] OFFICE 84682 [facility] OUTPATIEN 9 9 [facility] J T VISIT CLINIC OF 15 MINUTES [facility] HYACINTH - 9 9 [facility] INPATIENT [facility] HYACINTH [facility] 9 9 [facility] 9 [facility] 9 [facility] T OFFICE [address]85 [facility] OUTPATIEN 9 9 [facility] J T VISIT CLINIC OF 15 MINUTES [facility] OFFICE 23231 [facility], OUTPATIEN 9 9 [facility] J T VISIT CLINIC OF 15 MINUTES [facility] OFFICE 17457 MEET, CONSULTDONA 9 9 SHANELLE ION DIAGNOSTI A NEW/ESTAB CCENTER PATIENT 15 MIN [facility] - 9 9 [facility] OUTPATIEN [facility] T OFFICE 99541 ROSENTHAL ROSENTHAL OUTPATIEN 9 9 JR, J V JR, J V T VISIT 15 MINUTES EMERGENCY 81259 HYACINTH 9 9 [facility] T VISIT MODERATE SEVERITY [facility] HYACINTH - 9 9 [facility] OUTPATIEN [facility] T OFFICE 97974 [facility] OUTPATIEN 9 9 [facility]ALTH [facility] J T VISIT CLINIC OF 15 MINUTES [facility] HYACINTH - 9 9 [facility] OUT[facility] INC T OFFICE 49725 [facility] OUTPATIEN 9 9 HEALTH T[facility] Lott T VISIT CLINIC OF 15 MINUTES [facility] OFFICE 81456 [facility] OUTPATIEN 9 9 [facility] T[facility] VISIT CLINIC OF 15 MINUTES [facility] HYACINTH - 9 9 [facility] OUTPATIEN INC T EMERGENCY 55286 HYACINTH 9 9 [facility] DEPARTMEN INC T VISIT LIMITED/M INOR PROB EMERGENCY 79212 ANGELA RESENDEZ, 9 9 [facility] T VISIT ON HIGH/URGE NT SEVERITY HOSPITAL HYACINTH - 9 9 [facility] OUTPATIEN [facility] - 9 9 [facility] T OFFICE 96827 ARIADNA BAILEYILLO OUTPATIEN 8 8 JR, J V JR, J V T VISIT 15 MINUTES EMERGENCY 82339 HYACINTH 8 8 [facility] DEPARTMEN INC T VISIT LIMITED/M INOR PROB HOSPITAL HYACINTH - 8 8 [facility] T [facility] CENTRAL - 8 8 [facility] T OFFICE 96388 [facility] OUTPATIEN 8 8 [facility] T [facility] 10 BANK ACCT MINUTES OFFICE 49897 [facility] OUTPATIEN 8 8 [facility] T NEW 30 [facility] MINUTES BANK ACCT EMERGENCY 81674 HYACINTH 8 8 [facility] DEPARTMEN INC T VISIT MODERATE SEVERITY HOSPITAL HYACINTH - 8 8 [facility] OUTPATIEN INC T EMERGENCY 95240 HYACINTH 8 8 [facility] DEPARTMEN INC T VISIT HIGH/URGE NT SEVERITY HOSPITAL HYACINTH - 8 8 [facility]
--- OUTSIDE RECORDS SUMMARY | 2016-06-18 14:19 | External Medical Summary Rpt ---
Demographics Preferred Language Burkinan Marital Status Unknown Episcopalian Affiliation Unknown Race Unknown Ethnic Group Unknown Author Author , Organization [employer] Address Unknown Phone Unavailable Purpose Continuity of Care Document - through 2016 Immunization No patient found.
--- OUTSIDE RECORDS SUMMARY | 2016-06-18 14:19 | External Medical Summary Rpt ---
Demographics Preferred Language Burkinan Marital Status Unknown Yarsani Affiliation Unknown Race Unknown Ethnic Group Unknown Author Author , Organization [employer] Address Unknown Phone Unavailable Purpose Continuity of Care Document - through 2016 Immunization No patient found.
--- OUTSIDE RECORDS SUMMARY | 2016-06-18 14:19 | External Medical Summary Rpt ---
Author Author [employer] Organization [employer] Address Unknown Phone Unavailable
--- OUTSIDE RECORDS SUMMARY | 2016-06-18 14:28 | External Medical Summary Rpt ---
Author Author , Organization [employer] Address Unknown Phone Unavailable Care Team Providers Care Rattan Worker Name Role Phone [facility], OAKES Unavailable Unavailable LC [employer] Unavailable Unavailable INC, [employer] AMJAD, AMJAD Unavailable Unavailable AMJAD SOB, AMJAD SOB Unavailable Unavailable ARNOLD MERCY, ARNOLD Unavailable Unavailable MERCY ARNOLD MERCY, ARNOLD Unavailable Unavailable MERCY DELGADO LAURA, DELGADO LAURA Unavailable Unavailable [facility] Unavailable Unavailable MEDICAL GROUP, [facility] FADI KRAFT, Unavailable Unavailable FADI KRAFT, DEX Unavailable Unavailable ROCIO BESSON MELINDA, BESSON Unavailable Unavailable MELINDA ADEOLA ANT, ADEOLA ANT Unavailable Unavailable ADEOLA ANT, ADEOLA ANT Unavailable Unavailable [facility] Unavailable Unavailable [facility], [facility] Kaylie ROSENTHAL JR, V, Unavailable Unavailable Kaylie ROSENTHAL JR, V [facility], Unavailable Unavailable [facility] [place] Unavailable Unavailable [facility] [...] PHYSICIANS Unavailable Unavailable LAB, [facility]EP Unavailable Unavailable AND REHA, [facility] SLEEP AND REHA COMMUNITY ANESTH OF Unavailable Unavailable THE BLUE, [facility] ANESTH OF THE BLUE WILFRID PAT, [...] DANIEL S, Unavailable Unavailable JEANINE, DANIEL S [facility] Unavailable Unavailable [facility], [facility] MAL, RONDAL E, Unavailable Unavailable MAL, RONDAL E KIRK ANNA, KIRK ANNA Unavailable Unavailable LIANG MARGOTH, LIANG MARGOTH Unavailable Unavailable LIANG MARGOTH, LIANG MARGOTH Unavailable Unavailable KAITLIN ADRIANA, KAITLIN Unavailable Unavailable ADRIANA GOSIA HERNANDEZ, Unavailable Unavailable GOSIA HERNANDEZ GERALD R, Unavailable Unavailable [facility] Unavailable Unavailable CENTER, [facility] Unavailable Unavailable INC, [facility] Unavailable Unavailable HOSPITAL, [facility] Unavailable Unavailable HOSPITAL P, [facility] P [facility], Unavailable Unavailable [facility] ETHAN LONG Unavailable Unavailable ETHAN DARRON, ETHAN Unavailable Unavailable DARRON JONES TRA, JONES TRA Unavailable Unavailable JONES TRA, JONES TRA Unavailable Unavailable HILARIO II VINCENT, HILARIO Unavailable Unavailable II VINCENT [facility] Unavailable Unavailable IM[facility]ING [facility], [facility], Unavailable Unavailable [facility], Unavailable Unavailable [facility] CONCEPCION JR DWI, CONCEPCION Unavailable Unavailable JR DWI [facility] Unavailable Unavailable CENTER, [facility] Unavailable Unavailable CENTER, P, [facility], [facility] Unavailable [facility]available [facility], [facility] SANABRIA MERCY, SANABRIA Unavailable Unavailable MERCY LAWRENCE HAM, LAWRENCE HAM Unavailable Unavailable LAWRENCE HAM, LAWRENCE HAM Unavailable Unavailable [facility], Unavailable Unavailable [facility], Unavailable Unavailable [facility] Unavailable Unavailable SERVICES, [facility] RAM GRACE, RAM Unavailable Unavailable [...] Unavailable Unavailable GAY FIDE, GAY Unavailable Unavailable FDIE [facility]UL[facility] CAM, Unavailable Unavailable [facility] SCIFRES ANG, SCIFRES Unavailable Unavailable ANG SOKAN BAB, SOKAN BAB Unavailable Unavailable [facility] TALANOW ROL, TALANOW Unavailable Unavailable ROL BAKARI, BAKARI Unavailable Unavailable ABKARI RANDY, BAKARI Unavailable Unavailable RANDY BAKARI PADILLA, BAKARI Unavailable Unavailable RANDY [facility] Unavailable Unavailable #591, [facility] Unavailable [facility]available [facility], [facility] # Unavailable Unavailable [id number], [facility] # [id number] WEHRMAN III FIDE, Unavailable Unavailable WEHRMAN III FIDE WEHRMAN IIILESLEY, Unavailable Unavailable WEHRMAN IIILESLEY, PARISH NESBITT Unavailable Unavailable PARISH NESBITT, PARISH NESBITT Unavailable Unavailable WHANG LANI, WHANG LANI Unavailable Unavailable WHANG LANI, WHANG LANI Unavailable Unavailable JARVIS PLATT, JARVIS Unavailable Unavailable LC [facility] Unavailable Unavailable OF [place], [facility] [place] Purpose Continuity of Care Document - 11-24-2007 through 2016 Problems Code Diagnosis DOS Provider Status E119 TYPE 2 05-06-2016 [facility], P WITHOUT COMPLICATIO NS E669 OBESITY 05-06-2016 [facility], P R000 TACHYCARDIA 05-06-2016 [facility] UNS[facility], P M5117 INTERVERTEB 05-02-2016 [place] RAL DISC FAMILY D/O CHIROPRACT W/RADICULOP ATHY LS RGN M5137 OTH 05-02-2016 [place] INTERVERTEB FAMILY RAL DISC CHIROPRACT DEGEN LUMBOSACRAL REGION M5387 OTHER 05-02-2016 [place] SPECIFIED FAMILY DORSOPATHIE CHIROPRACT S LUMBOSACRAL REGION D37388 MUSCLE 05-02-2016 [place] SPASM OF FAMILY BACK CHIROPRACT M9902 SEGMENTAL & 05-02-2016 [place] SOMATIC FAMILY DYSFUNCTION CHIROPRACT THORACIC REGION M9903 SEGMENTAL & 05-02-2016 [place] SOMATIC FAMILY DYSFUNCTION CHIROPRACT OF LUMBAR REGION M9904 SEGMENTAL & 05-02-2016 [place] SOMATIC FAMILY DYSFUNCTION CHIROPRACT OF SACRAL REGION J069 ACUTE UPPER 01-21-2016 ARNVICKEY MERCY RESPIRATORY INFECTION UNSPECIFIED M9901 SEGMENTAL & 01-11-2016 [place] SOMATIC FAMILY DYSFUNCTION CHIROPRACT CERVICAL REGION B370 CANDIDAL 12-31-2015 [facility] STOMATITIS PHYSICIANS GROUP B3781 CANDIDAL 12-31-2015 [facility] ESOPHAGITIS PHYSICIANS GROUP B9789 OT VIRAL 12-31-2015 [facility] AGENT CAUSE PHYSICIANS DISEASES GROUP CLASSIFIED ELSW J0190 ACUTE 12-19-2015 [facility]NOLD MERCY SINUSITIS UNSPECIFIED J209 ACUTE 10-31-2015 [facility] BRONCHITIS UNSPECIFIED H8109 MENIERES 08-04-2015 [facility] MER[facility] DISEASE UNSPECIFIED EAR N830 FOLLICULAR 06-10-2015 [facility] CYST OF PHYSICIANS OVARY GROUP R102 PELVIC AND 06-10-2015 [facility] PERINEAL PHYSICIANS PAIN GROUP Z6843 BODY MASS 06-10-2015 [facility] INDEX BMI PHYSICIANS 50-59.9 GROUP ADULT N926 IRREGULAR 05-11-2015 [facility] MENSTRUATIO PHYSICIANS N GROUP UNSPECIFIED G4700 INSOMNIA 2015 ARNOLD MERCY UNSPECIFIED E1121 TYPE 2 05-03-2015 [facility] P W/DIABETIC NEPHROPATHY E1165 TYPE 2 05-03-2015 [facility] [place] R0602 SHORTNESS 05-03-2015 [facility] [facility] MEDICAL IMAGING ASS Z720 TOBACCO USE 05-03-2015 [facility] P J329 CHRONIC 04-06-2015 ARNOLD MERCY SINUSITIS UNSPECIFIED P39361 PAIN IN 02-07-2015 [facility] LEFT ANKLE [facility]IC[facility], [facility] R52739 PAIN IN 02-07-2015 [facility] LEFT FOOT MEDICAL IMAGING ASS N08324K UNSPECIFIED 02-07-2015 [facility] SPRAIN UNS PHYSICIANS, TOES PLL INITIAL ENCOUNTER B379 CANDIDIASIS 02-05-2015 ARNOLD MERCY UNSPECIFIED M9985 OTHER 01-08-2015 [place] BIOMECHANIC FAMILY AL LESIONS CHIROPRACT OF PELVIC REGION Z09 ENC F/U 12-30-2014 [facility] EXAM AFTR PHYSICIANS CMPL TX OTH GROUP THAN IZABELLA NEOPLSM Z3009 ENCOUNTER 12-30-2014 [facility] OT GENERAL PHYSICIANS GROUP MANAGER SUPPORT SERVICES&ADV ICE CONTRACEPT Z6842 BODY MASS 12-30-2014 [facility] INDEX BMI PHYSICIANS 45.0-49.9 GROUP ADULT E089 DIABETES 12-28-2014 [facility] MELLITUS PHYSICIANS, D/T PLLC UNDERLYING COND W/O COMP F84090 UNSPECIFIED 12-28-2014 [facility] ASTHMA PHYSICIANS, WITH ACUTE PLLC EXACERBATIO N R05 COUGH 12-28-2014 [facility] INC O021 MISSED 12-16-2014 [facility] PHYSICIANS GROUP O034 INCOMPLETE 12-16-2014 [facility] SPONT[facility]OUS [facility] W/O COMPLICATIO N Z3A00 WEEKS OF 12-16-2014 [facility] GESTATION ANESTH OF OF THE BLUE NOT SPECIFIED Z3A12 12 WEEKS 12-16-2014 [facility] GESTATION PHYSICIANS OF GROUP O200 THREATENED 12-15-2014 [facility] INC Z3A13 13 WEEKS 12-15-2014 [facility]ATION [facility] OF INC Z0100 ENCOUNTER 12-13-2014 [facility] EXAM EYES & GRE VISION W/O ABNORMAL FIND I10 ESSENTIAL 12-09-2014 [facility]IMARY [facility] HYPERTENSIO INC N O000 ABDOMINAL 12-09-2014 [facility] INC A55896 OTHER SPEC 12-09-2014 [facility] PHYSICIANS, RELATED PLLC COND 1ST TRIMESTER Z3480 ENC 11-25-2014 [facility] SUPERVISION [facility] OT NORMAL INC PREG UNS TRIMESTER O0941 SUPERVISION 11-21-2014 [facility] PREG PHYSICIANS W/GRAND GROUP MULTIPARITY FIRST TRI V40098 SUPERVISION 11-21-2014 [facility] ELDERLY PHYSICIANS MULTIGRAVID GROUP A FIRST TRIMESTER O2611 LOW WEIGHT 11-21-2014 [facility] GAIN IN PHYSICIANS GROUP FIRST TRIMESTER 79714 DIAB 10-10-2014 [facility] W/NEURO FOOT & MANIFESTS ANKLE CE TYPE II/UNS TYPE UNCNTRL 7295 PAIN IN 10-10-2014 [facility] SOFT FOOT & TISSUES OF ANKLE CE LIMB 7823 EDEMA 10-10-2014 [place] [address] SPRAIN AND 10-10-2014 [facility] STRAIN OF FOOT & UNSPECIFIED ANKLE CE SITE OF FOOT 4619 ACUTE 10-09-2014 OLYA MERCY SINUSITIS, UNSPECIFIED 4659 ACUTE URIS 10-09-2014 ARNOLD MERCY OF UNSPECIFIED SITE 4739 UNSPECIFIED 10-09-2014 ARNVICKEY MERCY SINUSITIS 66466 MORBID 10-03-2014 [facility] V7791 SCREENING 10-03-2014 [facility] FOR LIPOID [facility]ABETIC DISORDERS CENTER 8260 CLOSED 09-24-2014 [facility] FRACTURE OF PHYSICIANS, ONE OR PLLC MORE PHALANGES OF FOOT 2113 BENIGN 09-18-2014 [facility] NEOPLASM OF PHYSICIANS COLON GROUP 22194 ABDOMINAL 09-11-2014 [facility] PAIN, LEFT PHYSICIANS LOWER GROUP QUADRANT 6259 UNSPEC 09-01-2014 [facility] SYMPTOM PHYSICIANS ASSOC GROUP W/FEMALE GENITAL ORGANS 34721 ABDOMINAL 09-01-2014 [facility] PAIN, PHYSICIANS UNSPECIFIED GROUP SITE 7202 SACROILIITI 08-28-2014 [place] S NOT FAMILY ELSEWHERE CHIROPRACT CLASSIFIED 85116 DEGEN 08-28-2014 [place] LUMBAR/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 CHIROPRACT INTERVERTEB RAL DISC 7243 SCIATICA 08-28-2014 [facility] CHIROPRACT 7393 NONALLOPATH 08-28-2014 [place] IC LESION FAMILY OF LUMBAR CHIROPRACT REGION NEC 7394 NONALLOPATH 08-28-2014 [place] IC LESION FAMILY OF SACRAL CHIROPRACT REGION NEC 67391 ABDOMINAL 08-26-2014 [facility] PAIN, PHYSICIANS GENERALIZED GROUP V7651 SPECIAL 08-26-2014 [facility] SCREENING PHYSICIANS FOR GROUP MALIGNANT NEOPLASMS COLON 36461 ABDOMINAL 08-23-2014 [facility] PAIN RIGHT PHYSICIANS, LOWER PLLC QUADRANT 4590 UNSPECIFIED 08-18-2014 [facility] HEMORRHAGE PHYSICIANS GROUP 83164 ABDOMINAL 08-18-2014 [facility] PAIN, PHYSICIANS EPIGASTRIC GROUP V7231 ROUTINE 08-13-2014 [facility] GYNECOLOGIC [facility] AL EXAMINATION V745 SCREENING 08-13-2014 [facility] EXAMINATION LLC FOR VENEREAL DISEASE V221 SUPERVISION 08-12-2014 [facility] OF OTHER [facility] NORMAL INC 5718 OTHER 08-10-2014 [place] CHRONIC MEDICAL NONALCOHOLI IMAGING ASS C LIVER DISEASE 77952 ABDOMINAL 08-10-2014 [facility] PAIN OTHER PHYSICIANS, SPECIFIED PLLC SITE 17030 DIAB W/O 07-05-2014 [facility] COMP TYPE [facility] II/UNS NOT INC STATED UNCNTRL 4660 ACUTE 07-05-2014 O[facility] MADRID BRONCHITIS 1120 CANDIDIASIS 05-22-2014 [facility] OF MOUTH PHYSICIANS GROUP 5278 OTHER 05-15-2014 [facility] SPECIFIED PHYSICIANS DISEASES OF GROUP THE SALIVARY GLANDS 4610 ACUTE 05-06-2014 [facility] 15502 DIAB 03-28-2014 DR DANIEL Owens/JOSE KIRBY DPM MANIFESTS PSC TYPE II/UNS NOT UNCNTRL 88155 DIAB W/O 03-27-2014 [facility] M[facility] DIABETIC COMP TYPE CENTER II/UNS TYPE UNCNTRL 44489 OBESITY, 03-27-2014 [facility]PECIFIED [facility]IC CENTER V770 SCREENING 03-27-2014 [facility] FOR THYROID DIABETIC DISORDER CENTER 3829 UNSPECIFIED 03-07-2014 [facility] MADRID OTITIS MEDIA V7612 OTHER 03-06-2014 [facility] SCREENING [facility] HOSP MAMMOGRAM INC 2774 DISORDERS 03-03-2014 [facility] BILIRUBIN HOSP EXCRETION 00924 CAUSALGIA 03-03-2014 [facility] GROUP 3569 UNSPEC 03-03-2014 [facility] HEREDIT&IDI [facility] OPATHIC HOSP PERIPHERAL NEUROPATHY 7242 LUMBAGO 03-03-2014 [facility] 7820 DISTURBANCE 03-03-2014 [facility] OF SKIN [facility] SENSATION HOSP 93076 OTHER 03-03-2014 [facility] ABNORMAL [facility] GLUCOSE HOSP 7906 OTHER 03-03-2014 [facility] ABNORMAL [facility] BLOOD HOSP CHEMISTRY 6101 DIFFUSE 02-19-2014 [facility] CYSTIC PHYSICIANS MASTOPATHY GROUP 40178 MASTODYNIA 02-19-2014 [facility] PHYSICIANS GROUP 3574 POLYNEUROPA 01-02-2014 [facility] [place] THY OTHER ORTHOPAEDIC DISEASES S PLC CLASSIFIED ELSW 0463 DYSMENORRHE 12-31-2013 [facility] A PHYSICIANS GROUP 66490 UNSPECIFIED 12-25-2013 [facility] VAGINITIS PHYSICIANS AND GROUP VULVOVAGINI TIS 7881 DYSURIA 12-25-2013 [facility] PHYSICIANS GROUP 5110 PLEURISY 11-28-2013 [facility] MADRID WITHOUT MENTION EFFUS/CURRE NT TB 8460 SPRAIN AND 11-03-2013 [facility] OF N EMERGENCY LUMBOSACRAL PHYS E9288 OTHER 11-03-2013 [facility] ACCIDENT N EMERGENCY PHYS 7862 COUGH 11-02-2013 [facility] IMAGING ASS 7391 NONALLOPATH 10-14-2013 BAKARI WEBB LESION OF CERVICAL REGION NEC 7392 NONALLOPATH 10-14-2013 BAKARI RANDY IC LESION OF THORACIC REGION NEC 3559 MONONEURITI 09-19-2013 [facility] MADRID S OF UNSPECIFIED SITE 5789 UNSPECIFIED 09-10-2013 JEANINE ANNA HEMORRHAGE OF GASTROINTES TINAL TRACT 6202 OTHER AND 09-10-2013 [facility] UNSPECIFIED MEDICAL OVARIAN IMAGING ASS CYST 462 [...] 05-01-2013 [facility] OF EYES GRE AND VISION 14606 OTHER 04-23-2013 [facility] MADRID MALAISE AND FATIGUE V0481 NEED 03-18-2013 [facility] MADRID PROPHYLACTI C VACCINATION &INOCULATIO N FLU 9248 CONTUSION 02-05-2013 [facility] MADRID OF MULTIPLE SITES NEC 81372 SWELLING OF 02-04-2013 [facility] LIMB EDIS 58291 SPRAIN AND 02-04-2013 [facility] STRAIN OF UNSPECIFIED SITE OF WRIST 58986 CONTUSION 02-04-2013 [facility] LAZ OF HAND E9179 OTHER 02-04-2013 [facility] STRIKING EDIS AGAINST W/WO SUBSEQUENT FALL 5758 OTHER 01-16-2013 [facility] ANT SPECIFIED DISORDER OF GALLBLADDER 29787 ABDOMINAL 01-16-2013 [facility] ANT PAIN RIGHT UPPER QUADRANT 08188 UNS 11-29-2012 [facility] MADRID GASTRITIS&G ASTRODUODIT IS W/O MENTION HEMORR 5759 UNSPECIFIED 11-29-2012 [facility] MADRID DISORDER OF GALLBLADDER 632 MISSED 08-31-2012 LARA DANIKA 16661 NAUSEA 08-31-2012 GUILLEN ANTONINO ALONE 67455 UNSPEC 08-21-2012 [facility] HEMORRHAGE [facility] EARLY INC ANTEPARTUM 16341 OTH ABN 08-19-2012 [facility] SHAPE/POSIT EDIS ION GRAVID UTERUS ANTEPARTUM 7871 HEARTBURN 04-18-2012 [facility] ANT 04413 ASTHMA, 03-18-2012 [facility] UNSPECIFIED [facility] , INC UNSPECIFIED STATUS 44962 ABDOMINAL 03-18-2012 [facility] PAIN, LEFT [facility] UPPER INC QUADRANT 9195 OT 01-05-2012 [facility] EMRCY MX&UNSPEC SITES INSECT BITE NONVENOMOUS INF 07868 DIARRHEA 12-21-2011 [facility] ANT 7213 LUMBOSACRAL 12-14-2011 [facility] SLEEP AND SPONDYLOSIS REHA WITHOUT MYELOPATHY 7231 CERVICALGIA 12-14-2011 [facility] SLEEP AND REHA 8472 LUMBAR 12-14-2011 [facility] SPRAIN AND H SLEEP AND STRAIN REHA 7831 ABNORMAL 11-02-2011 [facility] GARNICA WEIGHT GAIN V2509 OT GENERAL 10-04-2011 [facility] DANIKA CNSL&ADVICE CONTRACEPT MANAGEMENT V2543 SURVEILLANC 09-06-2011 [facility] GARNICA E PREV PRSC IMPL SUBDERMAL CONTRACEPT 43661 PAIN IN 08-09-2011 WHANG LANI JOINT, ANKLE AND FOOT 7234 BRACHIAL 07-08-2011 JONES TRA NEURITIS OR RADICULITIS NOS 7294 UNSPECIFIED 07-08-2011 JONES TRA FASCIITIS 39951 UNSPECIFIED 04-13-2011 [facility] ANT ESOPHAGITIS 34868 REFLUX 04-13-2011 PATHOLOGY & ESOPHAGITIS CYTOLOGY LAB 19123 ATROPHIC 04-13-2011 PATHOLOGY & GASTRITIS CYTOLOGY WITHOUT LAB MENTION OF HEMORRHAGE 41101 OTHER SPEC 04-13-2011 [facility] ANT GASTRITIS WITHOUT MENTION HEMORRHAGE 5559 REGIONAL 04-13-2011 A[facility]A ANT ENTERITIS OF UNSPECIFIED SITE 98078 ULCERATION 04-13-2011 [facility] HOSP INTESTINE INC 13842 OTHER 04-13-2011 PATHOLOGY & SPECIFIED CYTOLOGY DISORDER OF LAB INTESTINES 5781 BLOOD IN 04-13-2011 [facility] 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[place] ANOMALIES MEDICAL OF SPLEEN IMAGING ASS 5693 HEMORRHAGE 03-30-2011 A[facility] ANT OF RECTUM AND ANUS 97312 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 00704 HEMATURIA 02-28-2011 [facility] UNSPECIFIED [facility] HOS[facility] INC 18068 GROSS 02-22-2011 [facility] P 5060 BRONCHITIS& 12-24-2010 LIANG MARGOTH PNEUMONITIS DUE TO FUMES&VAPOR S 5082 RESPIRATORY 12-24-2010 [place] CONDITIONS MEDICAL DUE TO IMAGING ASS SMOKE INHALATION 58148 SHORTNESS 12-24-2010 LIANG MARGOTH OF BREATH 14494 OTHER 12-24-2010 [place] NONSPECIFIC MEDICAL ABNORMAL IMAGING ASS FINDING OF LUNG FIELD 27053 BLISTERS 12-24-2010 [facility] W/EPID [facility] LOSS-BURN-S INC SHRAVAN DIGIT NOT THUMB 12803 BLISTERS 12-24-2010 [facility] WITH MEM [facility] EPIDERMAL [...] JIMMIE VISION 7226 DEGENERATIO 08-06-2010 NEURODIAGNO N [facility] INTERVERTEB RAL DISC SITE UNSPEC 55119 LUMP OR 07-05-2010 [place] MASS IN MEDICAL BREAST IMAGING ASS 6210 [...] IMPLANTABLE [place] [address] CHEST PAIN 05-23-2009 [place] UNSPECIFIED MEDICAL IMAGING ASSOCIATES 34745 PAINFUL 05-23-2009 [place] [facility] SERVICES [facility]OC[facility]ATES 79135 SPRAIN AND 05-23-2009 [facility] STRAIN OF MEM HOS[facility] CHONDROSTER INC NAL 8489 UNSPECIFIED 05-23-2009 [place] SITE OF EMERGENCY SPRAIN AND SERVICES STRAIN ASSOCIATES V251 ENCOUNTER 08-05-2008 [facility] INSERT/[facility] IU CLINIC OF CONTRACEPTI [place] VE DEVICE [facility] 40816 NON-HEALING 07-29-2008 [facility] SURGICAL HEALTH WOUND NEC CLINIC OF HÉCTOR [facility] 93352 CHRONIC 07-17-2008 [facility] FATIGUE [facility] SYNDROME INC V242 ROUTINE 07-17-2008 [facility] HE[facility] FOLLOW-UP CLINIC OF HÉCTOR PLLC 605 REDUNDANT 06-18-2008 [facility] CARE PREPUCE AND ASSOCIATES PHIMOSIS 19054 ABNORMAL 06-18-2008 WOMEN'S MATERNAL HEALTH GLUCOSE CLINIC OF [place] ANTEPARTUM PLLC 46916 HIGH 06-18-2008 [facility] HEAD AT ANESTH OF TERM, THE DELIVERED MANOHAR 88389 FETOPELVIC 06-18-2008 [facility] ON, CLINIC OF DELIVERED HÉCTOR [facility] V270 OUTCOME OF 06-18-2008 WOMEN'S DELIVERY HEALTH SINGLE CLINIC OF LIVEBORN [place] [facility] V3001 SINGLE 06-18-2008 [facility] [place] [address] ABNORMAL 06-17-2008 [facility] MATERNAL [facility] GLUCOSE INC TOLERANCE W/DELIVERY 66455 OBESITY 06-17-2008 [facility] COMP PG MEM HOS[facility] CHILDBIRTH/ INC THE PP DELIVERED 98071 EXCESS 06-13-2008 [facility] GR[facility] CLINIC OF AFFECT MGMT HÉCTOR MOTH PLLC ANTPRTM 73554 TRANSIENT 06-03-2008 [facility] HYPERTENSIO MEM HOSP N OF INC ANTEPARTUM 01930 POLYHYDRAMN 06-03-2008 [facility] ANTEPARTUM CLINIC OF COMPLICATIO HÉCTOR N [facility] 43845 THREATENED 05-29-2008 [facility] PREMATURE [facility] LABOR INC ANTEPARTUM 69690 OTHER 05-29-2008 KING CARIAS MD LABOR, ANTEPARTUM V220 SUPERVISION 05-20-2008 [facility] OF NORMAL PHYSICIANS FIRST LAB 73291 ABN MAT 04-30-2008 GLUCOSE DIAGNOSTICC T[place]ANCE ENTER COMPL PG CB/PP UNS EOC 50798 OBES COMP 04-30-2008 [facility] PG [facility] /THE HOSP PP ANTEPARTUM COND/COMP 13030 MATERNAL 04-03-2008 DI[facility] DIAGNOSTICC MELLITUS ENTER ANTEPARTUM 490 BRONCHITIS 04-02-2008 ARIADNA STONE JR J V SPECIFIED ACUTE OR CHRONIC 32654 OTHER 03-29-2008 ANGELA SPECIFED NATIONAL COMPLICATIO eGym N ANTEPARTUM V222 03-29-2008 [facility] STATE, [facility] INCIDENTAL INC 67695 LATE 03-17-2008 [facility] VOMITING OF MEM HOSP INC ANTEPARTUM 8483 SPRAIN AND 02-23-2008 ANGELA STRAIN OF Proposify 30567 OTH 02-22-2008 KNOWN/SUSPE DIAGNOSTICC CTED ENTER ABNORMALITY -NEC-APC/C 4720 CHRONIC 02-18-2008 ARIADNA RHINITIS , J V 7840 HEADACHE 02-18-2008 [place] [address] OTH SPEC 01-24-2008 COMP DIAGNOSTICC ENTER UNSPEC EPISODE CARE 65046 POOR 01-24-2008 [facility] MGMT [facility] HOSP ANTPRTM COND/COMP 95591 THREATENED 11-30-2007 [place] , MEDICAL ANTEPARTUM IMAGING ASSOC[facility]ATES 5990 URINARY 11-24-2007 [facility] TRACT [facility] HOSP INFECTION INC SITE NOT SPECIFIED 59053 INFECTIONS 11-24-2007 [facility] OF [facility] [place] GENITOURINA INC RY TRACT ANTEPARTUM Medications [...] 20 3- 4- 00 06 TO ve IN 76 20 20 08 WN N 00 [...] ST 00 08 04 24 30 00 NE Ac ER 40 -1 -0 .0 00 [...] 00 3- 4- 00 06 TO ve NE 51 20 20 07 WN IL 40 [...] 20 2- 7- 00 06 TO ve IN 76 20 20 08 WN N 00 [...] 00 5- 7- 00 06 TO ve NE 51 20 20 07 WN IL 40 [...] 20 7- 0- 00 06 TO ve IN 76 20 20 07 WN N 00 [...] 00 8- 0- 00 06 TO ve NE 51 20 20 07 WN IL 40 [...] 20 4- 3- 00 06 TO ve IN 76 20 20 07 WN N 00 [...] 3- 6- 00 MA 88 LD ve IN 05 20 20 RT 9 N 06 [...] 3- 3- 00 MA 88 LD ve IN 05 20 20 RT 9 N 06 [...] 0 14 7 CL 23 CH Ac NE 14 -2 -2 .0 IN ES ti OF 32 5- 5- 00 IC 41 TN ve LO 03 20 20 UT XA 70 11 11 PH CI 1 AR IN N MA CH HC CY AE L L 50 LL 0 C MG TA B NE 00 05 05 0 25 5 CL 23 CH Ac ED 05 -2 -2 .0 IN ES ti NI 40 5- 5- 00 IC 42 TN ve SO 01 20 20 UT NE 72 11 11 PH 5 AR IN 10 MA CH CY AE MG L [...] 9- 0- 00 MA 65 MA ve NE 59 20 20 RT 2 N ED [...] AM 00 03 03 1 30 10 AK 71 AR Ac OX 78 -1 -1 .0 L- 10 NO ti IC 12 4- 4- 00 MA 88 LD ve IL 61 20 20 RT 5 LI 33 11 11 RI N 1 PH CH 50 AR AR 0 MA D MG CY W # CA PS 10 UL 05 E 91 00 02 02 0 16 5 AK 44 RU Ac 40 -2 -2 .0 [...] 91 00 06 06 00 14 2 AK 44 ROSENBAUM Ac 40 -0 -1 .0 [...] 00 60 30 CL 19 CL Ac NE 74 -0 -1 .0 IN 52 AR [...] 8- 6- 00 MA 21 EY ve NE 59 20 20 RT 8 ED 31 09 09 IN NI 5 PH CH SO AR AE [...] 20 RT 7 YC 66 09 09 IN IN 8 PH CH AR AE 25 [...] 3- 5- 00 MA 39 E ve NE 59 20 20 RT 1 RO ED [...] 20 RT 8 YC 66 08 09 IN IN 8 PH CH AR AE 25 MA L 0 CY S MG #5 TA 91 BL ET ME 00 12 01 00 21 6 WA 69 GA Ac TH 60 -1 -0 .0 L- 99 IN ti YL 34 4- 1- 00 MA 82 EY ve NE 59 20 20 RT 7 ED 31 08 09 IN NI 5 PH CH SO AR AE LO MA L NE CY S 4 #5 MG 91 DO SE PK 00 12 01 00 18 7 WA 88 GA Ac 03 -1 -0 0. L- 13 IN ti 18 4- 1- 00 MA 21 EY ve 68 20 20 0 RT 8 51 08 09 IN 2 PH CH AR AE MA L [...] Procedure DOS Code Location Performer Comment HEMOGLOBI 85265 MATEO COBIAN N 7 DIABETIC GLYCOSYLA FRANKLIN, ASUNCION A1C P CHIROPRAC 33598 JAQUELIN BAKARI TIC 7 N FAMILY MANIPULAT CHIROPRAC ROSS TX T SPINAL 3-4 REGIONS CHIROPRAC 56901 JAQUELIN LONG TIC 7 N FAMILY MANIPULAT CHIROPRAC ROSS TX T SPINAL 3-4 REGIONS CHIROPRAC 15379 LEODANRoman BAKARI TIC 7 N FAMILY MANIPULAT CHIROPRAC ROSS TX T SPINAL 3-4 REGIONS CHIROPRAC 81037 JAQUELIN BAKARI TIC 7 N FAMILY MANIPULAT CHIROPRAC ROSS TX T SPINAL 3-4 REGIONS CHIROPRAC 75332 LEODANRoman BAKARI TIC 7 N FAMILY MANIPULAT CHIROPRAC ROSS TX T SPINAL 3-4 REGIONS CHIROPRAC 31125 LEODANRoman BAKARI TIC 7 N FAMILY MANIPULAT CHIROPRAC ROSS TX T SPINAL 3-4 REGIONS HEMOGLOBI 50448 MATEO COBIAN N 6 DIABETIC GLYCOSYLA FRANKLIN, ASUNCION A1C P BLOOD 11314 HYACINTH [facility] COUNT 6 [facility] COMPLETE INC INC AUTO&AUTO DIFRNTL WBC LIPID 08310 [facility]EL 6 [facility] INC INC COLLECTIO 77157 [facility] N VENOUS 6 [facility] BLOOD INC INC VENIPUNCT URE COMPREHEN 02959 [facility] SIVE 6 [facility] METABOLIC INC INC PANEL CHIROPRAC 42689 JAQUELIN VILLEGAS TIC 6 N FAMILY RANDY MANIPULAT CHIROPRAC ROSS TX T SPINAL 3-4 REGIONS CHIROPRAC 57647 JAQUELIN VILLEGAS TIC 6 N FAMILY RANDY MANIPULAT CHIROPRAC ROSS TX T SPINAL 3-4 REGIONS HEMOGLOBI 28108 MATEO COBIAN N 6 [facility] GL[facility]LA C[facility], ASUNCION A1C P CHIROPRAC 30544 JAQUELIN VILLEGAS TIC 6 N FAMILY RANDY MANIPULAT CHIROPRAC ROSS TX T SPINAL 3-4 REGIONS CHIROPRAC 99525 JAQUELIN VILLEGAS TIC 6 N FAMILY RANDY MANIPULAT CHIROPRAC ROSS TX T SPINAL 3-4 REGIONS CHIROPRAC 56157 JAQUELIN LONG TIC 6 N FAMILY DARRON MANIPULAT CHIROPRAC ROSS TX T SPINAL 3-4 REGIONS CHIROPRAC 43145 JAQUELIN VILLEGAS TIC 6 N FAMILY RANDY MANIPULAT CHIROPRAC ROSS TX T SPINAL 3-4 REGIONS CHIROPRAC 89911 JAQUELIN LONG TIC 6 N FAMILY DARRON MANIPULAT CHIROPRAC ROSS TX T SPINAL 3-4 REGIONS CHIROPRAC 73002 JAQUELIN LONG TIC 6 N FAMILY DARRON MANIPULAT CHIROPRAC ROSS TX T SPINAL 3-4 REGIONS LIPID 00188 [facility] PANEL 6 [facility] INC COMPREHEN 32939 [facility] SIVE 6 [facility] [address] [facility] THYROID 6 [facility] STIMULATI INC INC NG HORMONE TSH COLLECTIO 56737 [facility] N VENOUS 6 [facility] BLOOD INC INC VENIPUNCT URE CHIROPRAC 84419 JAQUELIN VILLEGAS TIC 6 N FAMILY RANDY MANIPULAT CHIROPRAC ROSS TX T SPINAL 3-4 REGIONS CHIROPRAC 55470 JAQUELIN VILLEGAS TIC 6 N FAMILY RANDY MANIPULAT CHIROPRAC ROSS TX T SPINAL 3-4 REGIONS HEMOGLOBI 46682 [place] AMJAD SOB N 6 DIABETIC GLYCOSYLA [place]ANK[place], ASUNCION A1C P CHIROPRAC 10725 JAQUELIN VILLEGAS TIC 6 N FAMILY RANDY MANIPULAT CHIROPRAC ROSS TX T SPINAL 3-4 REGIONS CHIROPRAC 63602 JAQUELIN VILLEGAS TIC 6 N FAMILY RANDY MANIPULAT CHIROPRAC ROSS TX T SPINAL 3-4 REGIONS CHIROPRAC 50335 JAQUELIN VILLEGAS TIC 6 N FAMILY RANDY MANIPULAT CHIROPRAC ROSS TX T SPINAL 3-4 REGIONS CHIROPRAC 72901 JAQUELIN LONG TIC 6 N FAMILY DARRON MANIPULAT CHIROPRAC ROSS TX T SPINAL 3-4 REGIONS HEMOGLOBI 56708 [place] AMJAD SOB N 6 DIABETIC GLYCOSYLA [place], ASUNCION A1C P CHIROPRAC 04070 JAQUELIN VILLEGAS TIC 6 N FAMILY RANDY MANIPULAT CHIROPRAC ROSS TX T SPINAL 3-4 REGIONS CHIROPRAC 24344 JAQUELIN VILLEGAS TIC 6 N FAMILY RANDY MANIPULAT CHIROPRAC ROSS TX T SPINAL 3-4 REGIONS CHIROPRAC 44900 JAQUELIN VILLEGAS TIC 6 N FAMILY RANDY MANIPULAT CHIROPRAC ROSS TX T SPINAL 3-4 REGIONS CHIROPRAC 94418 JAQUELIN VILLEGAS TIC 6 N FAMILY RANDY MANIPULAT CHIROPRAC ROSS [place] T SPINAL 3-4 [place] [address] [facility] TRANSVAGI 6 PHYSICIAN DANIKA NAL S GROUP CHIROPRAC 18554 JAQUELIN LONG TIC 6 N FAMILY DARRON MANIPULAT CHIROPRAC ROSS TX T SPINAL 3-4 REGIONS CHIROPRAC 70296 JAQUELIN VILLEGAS TIC 6 N FAMILY RANDY MANIPULAT CHIROPRAC ROSS TX T SPINAL 3-4 REGIONS CHIROPRAC 90988 JAQUELIN LONG TIC 6 N FAMILY DARRON MANIPULAT CHIROPRAC ROSS TX T SPINAL 3-4 REGIONS CHIROPRAC 25746 JAQUELIN VILLEGAS TIC 6 N FAMILY RANDY MANIPULAT CHIROPRAC ROSS TX T SPINAL 3-4 REGIONS CHIROPRAC 07750 JAQUELIN VILLEGAS TIC 6 N FAMILY RANDY MANIPULAT CHIROPRAC ROSS [place] T SPINAL 3-4 [place] [address] [facility] MARCO TRANSVAGI 6 PHYSICIAN DANIKA NAL S GROUP RADIOLOGI 26481 [place] GINGER C EXAM 6 MEDICAL EDIS CHEST 2 IMAGING VIEWS ASS FRONTAL&L ATERAL ECG 54118 HYACINTH MARTINEZ ROUTINE 6 [facility] W/LEAST P 12 LDS I&R ONLY URNLS DIP 13372 [facility] MARCO 6 PHYSICIAN DANIKA STICK/TAB S GROUP LET RGNT NON-AUTO W/O MICRSCP HEMOGLOBI 94774 [place] AMJAD SOB N 6 DIABETIC GLYCOSYLA [place], ASUNCION A1C P SURGICAL L3260 ADVANCED ADVANCED BOOT/SHOE 5 TECHNOLOG TECHNOLOG EACH IES Blooie IES INC RADEX 16110 [place] BEINE FOOT 5 MEDICAL ROCIO COMPLETE IMAGING MINIMUM 3 ASS VIEWS CHIROPRA 75921 JAQUELIN VILELGAS TIC 5 N FAMILY RANDY MANIPULAT CHIROPRAC ROSS TX T SPINAL 1-2 REGIONS HEMOGLOBI 41453 [place] AMJAD SOB N 5 DIABETIC GLYCOSYLA [place], [facility] A1C P GLUC BLD 16783 HYACIN[facility]OS GLUC MNTR 5 [facility] DEV INC INC CLEARED FDA SPEC HOME USE ECG 79255 HYACINTH JAVIER JR ROUTINE 5 [facility] W/LEAST P 12 LDS I&R ONLY INJECTION J2405 [facility] 5 [facility] ONDANSETR INC INC ON HCL PER 1 MG TX MISSED 92147 [facility] MARCO 5 PHYSICIAN DANIKA FIRST S GROUP TRIMESTER SURGICAL ECG 25036 HYACINTH [facility] ROUTINE 5 [facility] ECG INC INC W/LEAST 12 LDS TRCG ONLY W/O [place] [address] [facility], SANABRIA SURG 5 [facility] PATHOLOGY GROSS&ANNA ROSCOPIC EXAM ANESTHESI 92075 [facility] FERRO MAKENZIE A 5 ANESTH INCOMPLET [place] E/[place] [address] [facility] INFUSION 5 [facility] THERAPY/P INC INC ROPHYLAXI S /DX 1ST TO 1 HR THERAPEUT 24828 HYACINTH HYACINTH IC 5 [facility] INJECTION [place] [address] [facility] INFUSION 5 [facility] THERAPY INC INC PROPHYLAX IS/DX EA HOUR US PREG 02033 [facility] UTERUS 5 MEDICAL EDIS REAL TIME IMAGING W/IMAGE ASS DCMTN TRANSVAG DETERMINA 55258 [facility] 5 GRE GRE REFRACTIV E STATE OPHTH 24376 [facility] 5 GRE GRE XM&EVAL COMPRHNSV ESTAB PT 1/> COMPREHEN 77537 [facility] SIVE 5 [facility] METABOLIC INC INC PANEL BLOOD 61633 [facility]IN[facility] COUNT 5 [facility] COMPLETE INC INC AUTO&AUTO DIFRNTL WBC URNLS DIP 62090 [facility] 5 [facility] STICK/TAB INC INC LET REAGENT AUTO MICROSCOP Y OBSTETRIC 52144 [facility] PANEL 5 [facility] INC INC INF AGT G0432 [facility]IN[facility] AB DETECT 5 [facility] EIA TECH INC INC HIV-1&/HI V-2 SCR COLLECTIO 75086 HYCAIN[facility] N VENOUS 5 [facility] BLOOD INC INC VENIPUNCT URE US PREG 54517 [facility] LARA UTERUS 5 PHYSICIAN DANIKA REAL TIME S GROUP W/IMAGE DCMTN TRANSVAG IADNA 79742 [facility] NEISSERIA 5 [facility] INC INC GONORRHOE AE AMPLIFIED PROBE TQ IADNA 24502 [facility] CHLAMYDIA 5 [facility] INC INC TRACHOMAT IS AMPLIFIED PROBE TQ RADEX 90695 MATEO PEDROZA FOOT 5 FOOT & N SHABNAM COMPLETE ANKLE CE MINIMUM 3 VIEWS HEMOGLOBI 25695 MTAEO ANTHONYTSINGE N 5 DIABETIC R TAR GLYCOSYLA CENTER ASUNCION A1C RADEX 24492 [facility] JENSEN FOOT 5 MEDICAL ROCIO COMPLETE IMAGING MINIMUM 3 [place] [address] [facility], PICKLESIM SURG 5 LLC ER JR SUMIT PATHOLOGY GROSS&ANNA ROSCOPIC EXAM COLSC FLX 80006 [facility] MIKAYLA 5 PHYSICIAN CAM W/REMOVAL S GROUP LESION BY HOT BX FORCEPS CHIROPRAC 07933 JAQUELIN VILLEGAS TIC 5 N FAMILY RANDY MANIPULAT CHIROPRAC ROSS TX T SPINAL 1-[address] [place] [address] [facility] ABDOMEN & 5 MEDICAL ROCIO PELVIS IMAGING W/O ASS CONTRAST MATERIAL URNLS DIP 59076 [facility] LYNETTE 5 PHYSICIAN MARGOTH STICK/TAB S GROUP LET RGNT NON-AUTO W/O MICRSCP CYTP C/V 87029 [facility], PICKLESIM AUTO THIN 5 LLC ER JR SUMIT LYR PREPJ SCR MNL RESCR PHYS IADNA 95110 [facility], PICKLESIM NEISSERIA 5 LLC ER JR SUMIT GONORRHOE AE AMPLIFIED PROBE TQ IADNA 14644 [facility], PICKLESIM CHLAMYDIA 5 [facility] ER JR SUMIT TRACHOMAT IS AMPLIFIED PROBE TQ COLLECTIO 83953 [facility]IN[facility] N VENOUS 5 [facility] BLOOD INC INC VENIPUNCT URE GONADOTRO 89825 [facility]IN[facility] PIN 5 [facility] [place] [address] [place] [facility] ABDOM[facility] & 5 MEDICAL ROCIO PELVIS IMAGING W/O ASS CONTRAST MATERIAL CHIROPRAC 28467 JAQUELIN VILLEGAS TIC 5 N FAMILY RANDY MANIPULAT CHIROPRAC ROSS TX T SPINAL 1-2 REGIONS LIPID 72786 HYACIN[facility] PANEL 5 [facility] INC INC COLLECTIO 17778 [facility]IN[facility] N VENOUS 5 [facility] BLOOD INC INC VENIPUNCT URE HEMOGLOBI 22279 MATEO FRANCOJAD SOB N 5 DIABETIC GLYCOSYLA CENTER, ASUNCION A1C P FOR DIAB A5512 MATEO COBIAN SOB ONLY MX 5 DIABETIC DNSITY CENTER, INSRT DIR P FORMD PRFAB EA DIAB ONLY A5500 MATEO COBIAN SOB FIT CSTM 5 DIABETIC PREP&SPL CENTER, SHOE MX P DNSITY INSRT INJECTION J1040 [facility] JEANINE 5 PHYSICIAN ANNA METHYLPRE S GROUP DNISOLONE ACETATE 80 MG THERAPEUT 94294 [facility] JEANINE IC 5 PHYSICIAN ANNA PROPHYLAC S GROUP TIC/DX INJECTION SUBQ/IM COLLECTIO 27016 MATEO COBIAN SOB N VENOUS 5 DIABETIC BLOOD CENTER VENIPUNCT URE THERAPEUT 73953 JAQUELIN VILLEGAS IC PX 1/> 5 N FAMILY RANDY AREAS CHIROPRAC EACH 15 T MIN EXERCISES CHIROPRAC 26950 JAQUELIN VILLEGAS TIC 5 N FAMILY RANDY MANIPULAT CHIROPRAC ROSS TX T SPINAL 1-2 REGIONS CHIROPRAC 36634 JAQUELIN VILLEGAS TIC 5 N FAMILY RANDY MANIPULAT CHIROPRAC ROSS TX T SPINAL 1-2 REGIONS APPL 90586 JAQUELIN VILLEGAS MODALITY 5 N FAMILY RANDY 1/> AREAS CHIROPRAC TRACTION T MECHANICA L CHIROPRAC 55437 JAQUELIN VILLEGAS TIC 5 N FAMILY RANDY MANIPULAT CHIROPRAC ROSS TX T SPINAL 1-2 REGIONS THERAPEUT 04322 JAQUELIN VILLEGAS IC PX 1/> 5 N FAMILY RANDY AREAS CHIROPRAC EACH 15 T MIN EXERCISES [facility] [address] HYACINTH CL[facility] AIDED 5 [facility] DETECTION INC INC SCREENING MAMMOGRAP HY SCREENING G0202 [facility]IN[facility]OS 5 [facility] MAMMOGRAP INC INC HY CHIRAG INCL CAD WHEN PERFORMD THERAPEUT 12696 JAQUELIN VILLEGAS IC PX 1/> 5 N FAMILY RANDY AREAS CHIROPRAC EACH 15 T MIN EXERCISES CHIROPRAC 79950 JAQUELIN VILLEGAS TIC 5 N FAMILY RANDY MANIPULAT CHIROPRAC ROSS TX T SPINAL 1-2 REGIONS APPL 21585 JAQUELIN VILLEGAS MODALITY 5 N FAMILY RANDY 1/> AREAS CHIROPRAC ELEC T STIMJ EA 15 MIN HEMOGLOBI 62014 [facility]EN[facility]AL N 5 [facility] HOSP ASUNCION A1C COMPREHEN 38792 [facility]AL SIVE 5 [facility]ONDOISM [facility] HOSP PANEL THERAPEUT 62726 JAQUELIN VILLEGAS IC PX 1/> 5 N FAMILY RANDY AREAS CHIROPRAC EACH 15 T MIN EXERCISES CHIROPRAC 42886 JAQUELIN VILLEGAS TIC 5 N FAMILY RANDY MANIPULAT CHIROPRAC ROSS TX T SPINAL 1-2 [place] [address] [facility] MARCO TRANSVAGI 4 PHYSICIAN DANIKA [facility] S GROUP NEEDLE 41466 [facility] EA 4 NEUROLOGY AYAD EXTREMTY W/PARASPI CONSULTAN NL AREA T COMPLETE NERVE 06990 [facility] CONDUCTIO 4 NEUROLOGY AYAD N STUDIES 01-01 CONSULTAN STUDIES T SMR PRIM 97993 [facility] MARCO SRC WET 4 PHYSICIAN DANIKA [facility] S GROUP NFCT AGT MRI 00162 CENTRAL JONES TRA SPINAL 4 [place] CANAL ORTHOPAED LUMBAR ICS PLC W/O CONTRAST MATERIAL RADIOLOGI 44375 [facility] C EXAM 4 MEDICAL ROCIO CHEST 2 IMAGING VIEWS ASS FRONTAL&L ATERAL RADEX 75958 JONES TRA JONES TRA SPINE 4 LUMBOSACR AL 2/3 VIEWS THERAPEUT 74710 BAKARI VILLEGAS IC PX 1/> 4 RANDY RANDY AREAS EACH 15 MIN EXERCISES CHIROPRAC 96380 BAKARI VILLEGAS TIC 4 RANDY RANDY MANIPULAT ROSS TX SPINAL 3-4 REGIONS CHIROPRAC 94424 BAKARI BAKARI TIC 4 RANDY RANDY MANIPULAT ROSS TX SPINAL 3-4 REGIONS THERAPEUT 58583 BAKARI BAKARI IC PX 1/> 4 RANDY RANDY AREAS EACH 15 MIN EXERCISES APPL 13459 BAKARI BAKARI MODALITY 4 RANDY RANDY 1/> AREAS TRACTION MECHANICA L THERAPEUT 05337 BAKARI BAKARI IC PX 1/> 4 RANDY RANDY AREAS EACH 15 MIN EXERCISES CHIROPRAC 69324 BAKARI BAKARI TIC 4 RANDY RANDY MANIPULAT ROSS TX SPINAL 3-4 REGIONS CHIROPRAC 26619 BAKARI VILLEGAS TIC 4 RANDY RANDY MANIPULAT ROSS TX SPINAL 3-4 REGIONS THERAPEUT 89597 BAKARI BAKARI IC PX 1/> 4 RANDY RANDY AREAS EACH 15 MIN EXERCISES RADEX 44860 [place] RICHARDSO FOOT 4 FOOT & N SHABNAM COMPLETE ANKLE CE MINIMUM 3 VIEWS THERAPEUT 98710 BAKARI BAKARI IC PX 1/> 4 RANDY RANDY AREAS EACH 15 MIN EXERCISES CHIROPRAC 15730 BAKARI BAKARI TIC 4 RANDY RANDY MANIPULAT ROSS TX SPINAL 3-4 REGIONS CHIROPRAC 52369 BAKARI BAKARI TIC 4 RANDY RANDY MANIPULAT ROSS TX SPINAL 3-4 REGIONS THERAPEUT 82670 BAKARI BAKARI IC PX 1/> 4 RANDY RANDY AREAS EACH 15 MIN EXERCISES THERAPEUT 68579 BAKARI BAKARI IC PX 1/> 4 RANDY RANDY AREAS EACH 15 MIN EXERCISES CHIROPRAC 09014 BAKARI BAKARI TIC 4 RANDY RANDY MANIPULAT ROS[place] SPINAL 3-[address] [place] [address] [facility] ABDOMEN & 4 MEDICAL EDIS PELVIS IMAGING W/O ASS CONTRAST MATERIAL THERAPEUT 32329 BAKARI BAKARI IC PX 1/> 4 RANDY RANDY AREAS EACH 15 MIN EXERCISES CHIROPRAC 04617 BAKARI BAKARI TIC 4 RANDY RANDY MANIPULAT ROSS TX SPINAL 3-4 REGIONS CHIROPRAC 40888 BAKARI BAKARI TIC 4 RANDY RANDY MANIPULAT ROSS TX SPINAL 3-4 REGIONS THERAPEUT 70121 BAKARI BAKARI IC PX 1/> 4 RANDY RANDY AREAS EACH 15 MIN EXERCISES THERAPEUT 59376 BAKARI BAKARI IC PX 1/> 4 RANDY RANDY AREAS EACH 15 MIN EXERCISES CHIROPRAC 18017 BAKARI BAKARI TIC 4 RANDY RANDY MANIPULAT ROSS TX SPINAL 3-4 REGIONS CHIROPRAC 45486 BAKARI BAKARI TIC 4 RANDY RANDY MANIPULAT ROSS TX SPINAL 3-4 REGIONS THERAPEUT 89740 BAKARI BAKARI IC PX 1/> 4 RANDY RANDY AREAS EACH 15 MIN EXERCISES THERAPEUT 47475 BAKARI BAKARI IC PX 1/> 4 RANDY RANDY AREAS EACH 15 MIN EXERCISES CHIROPRAC 30025 BAKARI BAKARI TIC 4 RANDY RANDY MANIPULAT ROSS TX SPINAL 3-4 REGIONS CHIROPRAC 95531 BAKARI BAKARI TIC 4 RANDY RANDY MANIPULAT ROSS TX SPINAL 3-4 REGIONS THERAPEUT 39778 BAKARI BAKARI IC PX 1/> 4 RANDY RANDY AREAS EACH 15 MIN EXERCISES THERAPEUT 22062 BAKARI BAKARI IC PX 1/> 4 RANDY RANDY AREAS EACH 15 MIN EXERCISES CHIROPRAC 99288 BAKARI BAKARI TIC 4 RANDY RANDY MANIPULAT ROSS TX SPINAL 3-4 REGIONS CHIROPRAC 01365 BAKARI BAKARI TIC 4 RANDY RANDY MANIPULAT ROSS TX SPINAL 3-4 REGIONS THERAPEUT 47319 BAKARI BAKARI IC PX 1/> 4 RANDY RANDY AREAS EACH 15 MIN EXERCISES 52253 [facility] TRANSVAGI 4 DANIKA DANIKA NAL THERAPEUT 45178 BAKARI BAKARI IC PX 1/> 4 RANDY RANDY AREAS EACH 15 MIN EXERCISES CHIROPRA 40132 BAKARI BAKARI TIC 4 RANDY RANDY MANIPULAT ROSS TX SPINAL 3-4 REGIONS CHIROPRAC 81958 BAKARI BAKARI TIC 4 RANDY RANDY MANIPULAT ROSS TX SPINAL 3-4 REGIONS THERAPEUT 16050 BAKARI BAKARI IC PX 1/> 4 RANDY RANDY AREAS EACH 15 MIN EXERCISES THERAPEUT 32637 BAKARI BAKARI IC PX 1/> 4 RANDY RANDY AREAS EACH 15 MIN EXERCISES APPL 72091 BAKARI BAKARI MODALITY 4 RANDY RANDY 1/> AREAS TRACTION MECHANICA L CHIROPRAC 28432 BAKARI BAKARI TIC 4 RANDY RANDY MANIPULAT ROSS TX SPINAL 3-4 REGIONS CHIROPRAC 79851 BAKARI BAKARI TIC 4 RANDY RANDY MANIPULAT ROSS TX SPINAL 3-4 REGIONS URINE 15954 [facility] COSTAE 4 DANIKA DANIKA TEST VISUAL COLOR CMPRSN METHS APPL 48195 BAKARI BAKARI MODALITY 4 RANDY RANDY 1/> AREAS TRACTION MECHANICA L THERAPEUT 15110 BAKARI BAKARI IC PX 1/> 4 RANDY RANDY AREAS EACH 15 MIN EXERCISES GONADOTRO 29886 HYACINTH CLAROS PIN 4 [facility] CHORIONIC INC INC QUALITATI VE APPL 22056 BAKARI BAKARI MODALITY 4 RANDY RANDY 1/> AREAS TRACTION MECHANICA L THERAPEUT 33832 BAKARI VILLEGAS IC PX 1/> 4 RANDY RANDY AREAS EACH 15 MIN EXERCISES CHIROPRAC 17029 BAKARI VILLEGAS TIC 4 RANDY RANDY MANIPULAT ROSS TX SPINAL 3-4 REGIONS CHIROPRAC 03152 BAKARI VILLEGAS TIC 4 RANDY RANDY MANIPULAT ROSS TX SPINAL 3-4 REGIONS THERAPEUT 08979 BAKARI VILLEGAS IC PX 1/> 4 RANDY RANDY AREAS EACH 15 MIN EXERCISES APPL 53225 BAKARI VILLEGAS MODALITY 4 RANDY RANDY 1/> AREAS TRACTION MECHANICA L APPL 29588 BAKARI VILLEGAS MODALITY 4 RANDY RANDY 1/> AREAS TRACTION MECHANICA L CHIROPRAC 26752 BAKARI VILLEGAS TIC 4 RANDY RANDY MANIPULAT ROSS TX SPINAL 3-4 REGIONS GENERAL 09226 COMBINED COMBINED HEALTH 4 PHYSICIAN PHYSICIAN PANEL S LA S LA IRON 15756 COMBINED COMBINED BINDING 4 PHYSICIAN PHYSICIAN CAPACITY S LA S LA LIPID 58325 COMBINED COMBINED PANEL 4 PHYSICIAN PHYSICIAN S LA S LA 25 45520 COMBINED COMBINED HYDROXY 4 PHYSICIAN PHYSICIAN INCLUDES S LA S LA FRACTIONS IF PERFORMED CYANOCOBA 14071 COMBINED COMBINED SCOOTER 4 PHYSICIAN PHYSICIAN VITAMIN S LA S LA B-12 SEDIMENTA 59002 COMBINED COMBINED TION RATE 4 PHYSICIAN PHYSICIAN RBC S LA S LA NON-AUTOM ATED BLOOD 20128 COMBINED COMBINED COUNT 4 PHYSICIAN PHYSICIAN [place] [address] COMBINED COMBINED FREE 4 PHYSICIAN PHYSICIAN THYROXINE S LA S LA OPHTH 77189 [facility] 4 GRE GRE XM&EVAL COMPRHNSV ESTAB PT 1/> DETERMINA 33622 SHAUN DUNN TION 4 GRE GRE REFRACTIV E STATE IADNA 97877 PICKLESIM PICKLESIM NEISSERIA 4 ER JR SUMIT ER JR SUMIT GONORRHOE AE AMPLIFIED PROBE TQ IADNA 18356 PICKLESIM PICKLESIM CHLAMYDIA 4 ER JR SUMIT ER JR SUMIT TRACHOMAT IS AMPLIFIED PROBE TQ CYTP C/V 65013 PICKLESIM PICKLESIM AUTO THIN 4 ER JR SUMIT ER JR SUMIT LYR PREPJ SCR MNL RESCR PHYS ADMINISTR G0008 [facility] DOBSON ATION OF 4 [facility] INFLUENZA VIRUS VACCINE INFLUENZA Q2038 [facility] DBOSON VACC 4 [facility] SPLIT VIRUS 3 YRS & > IM FLUZONE WRIST L3908 [facility] HAND 3 ORTHOSIS EXT CONTROL COCK-UP PREFAB RADEX 46018 GINGER GINGER HAND 3 EDIS ED[place] MIN[place] [address] [place] [address] GINGER GINGER ABDOMEN & 3 EDIS [place] [address] HYACIN[facility]OS ABDOMINAL 3 [facility] REAL [place] TIME W/[place] [address] [facility] TRANSVAGI 3 DANIKA DANIKA NAL [place] PREG 75712 [facility] UTERUS 3 DANIKA DANIKA REAL TIME W/IMAGE DCMTN TRANSVAG URINE 19084 [facility] LARA 3 DANIKA DANIKA TEST VISUAL COLOR CMPRSN METHS GONADOTRO 41921 HYACINTH CL[facility]OS PIN 3 [facility] CHORIONIC INC INC QUANTITAT ROSS GONADOTRO 04229 HYACIN[facility] PIN 3 [facility] CHORIONIC INC INC QUANTITAT ROSS COMPREHEN 06265 [facility] SIVE 3 [facility] METABOLIC INC INC PANEL CULTURE 89567 HYACINTH RAM BACTERIAL 3 [facility] LIS INC QUANTTATI VE COLONY COUNT URINE US PREG 37644 [facility] UTERUS 3 [facility] REAL TIME INC INC W/IMAGE DCMTN TRANSVAG BLOOD 48134 [facility] COUNT 3 [facility] COMPLETE INC INC AUTO&AUTO DIFRNTL WBC URNLS DIP 85362 [facility] 3 [facility] STICK/TAB INC INC LET REAGENT AUTO MICROSCOP Y URINE 31770 [facility] 3 [facility] TEST INC INC VISUAL COLOR CMPRSN METHS HEMOGLOBI 57416 HY[facility] N 3 [facility] MEM HOS[facility] GLYCOSYLA INC INC ASUNCION A1C COMPREHEN 27119 [facility] SIVE 3 [facility]OS[facility] METABOLIC INC INC PANEL OPHTH 02226 [facility] GRE GRE XM&EVAL COMPRHNSV ESTAB PT 1/> DETERMINA 77529 SHAUN DUNN TION 3 GRE GRE REFRACTIV E STATE URNLS DIP 62881 HY[facility]OS 3 [facility] STICK/TAB INC INC LET REAGENT AUTO MICROSCOP Y URINE 81707 [facility] 3 [facility] TEST INC INC VISUAL COLOR CMPRSN METHS URNLS DIP 08600 LARA LARA 2 DANIKA DANIKA STICK/TAB LET RGNT NON-AUTO W/O MICRSCP CYTP C/V 47551 PICKLESIM PICKLESIM AUTO THIN 2 ER JR SUMIT ER JR SUMIT LYR PREPJ SCR MNL RESCR PHYS THERAPEUT 33013 HYACINTH CLAROS IC PX 1/> 2 [facility] AREAS INC INC EACH 15 MIN EXERCISES APPL 24954 [facility] MODALITY 2 [facility]OSP 1/> AREAS INC INC ELEC STIMJ UNATTENDE D APPLICATI 84500 HY[facility] ON 2 [facility] MODALITY INC INC 1/> AREAS HOT/COLD PACKS APPLICATI 13788 [facility] ON 2 [facility] MODALITY INC INC 1/> AREAS HOT/COLD PACKS APPL 32273 [facility] MODALITY 2 [facility] 1/> AREAS INC INC ELEC STIMJ UNATTENDE D THERAPEUT 20722 HYACINTH CL[facility] IC PX 1/> 2 [facility] ARE[facility] INC INC EACH 15 MIN EXERCISES APPL 64364 [facility]/> AREAS INC INC ELEC STIMJ EA 15 MIN APPLICATI 33039 [facility] 1/> AREAS HOT/COLD PACKS THERAPEUT 75319 [facility] IC PX 1/> 2 [facility] AREAS INC INC EACH 15 MIN EXERCISES APPL 05722 [facility] 1/> AREAS INC INC ELEC STIMJ UNATTENDE D THYROID 71836 COMBINED COMBINED HORM 2 PHYSICIAN PHYSICIAN UPTK/THYR S LA S LA OID HORMONE BINDING RATIO LIPID 82488 COMBINED COMBINED PANEL 2 PHYSICIAN PHYSICIAN S LA S LA SEDIMENTA 71594 COMBINED COMBINED TION RATE 2 PHYSICIAN PHYSICIAN [place] [address] COMBINED COMBINED THYROXINE 2 PHYSICIAN PHYSICIAN TOTAL S LA S LA GENERAL 22166 COMBINED COMBINED HEALTH 2 PHYSICIAN PHYSICIAN PANEL S LA S LA PHYSICAL 71352 [facility] THERAPY 2 [facility] [place] N [address] [facility] TRANSVAGI 2 DANIKA DANIKA NAL NRV CNDJ 38007 GUILLEN ANTONINO GUILLEN ANTONINO AMPLT&LAT 2 ENCY EA NRV MOTOR W/F-WAVE STD NRV CNDJ 17801 GUILLEN ANTONINO GUILLEN ANTONINO AMPLITUDE 2 & LATENCY EACH NERVE SENSORY HEMOGLOBI 93926 [facility] 2 [facility] ASUNCION A1C GENERAL [address] [facility] COLLECTIO [address]71 [facility] VENOUS 2 [facility] VENIPUNCT URE CYANOCOBA 17705 [facility] SCOOTER 2 [facility] B-12 ORGANIC 35777 [facility] ACID 1 2 [facility] [place] [address] [facility] HOMOCYSTE 2 [facility] REMOVAL 44331 [facility] NON-BIODE 2 DANIKA DANIKA GRADABLE DRUG DELIVERY IMPLANT NRV CNDJ 16152 JONES TRA JONES TRA AMPLT&LAT 2 ENCY EA NRV MOTOR W/F-WAVE STD NRV CNDJ 43919 JONES TRA JONES TRA AMPLITUDE 2 & LATENCY EACH NERVE SENSORY NEEDLE 06896 JONES TRA JONES TRA EMG EA 2 EXTREMTY W/PARASPI NL AREA COMPLETE MRI 47864 JONES TRA JONES TRA SPINAL 2 CANAL CERVICAL W/O CONTRAST MATRL RADEX 87477 JONES TRA JONES TRA SPINE 2 THORACIC 2 VIEWS RADEX 47288 JONES TRA JONES TRA SPINE 2 CERVICAL 2 OR 3 [place] [address] [facility] CLOSTRIDI 2 [facility] [place] [address] [facility] GIARDIA 2 [facility] INC INC CUL BACT 54470 [facility] STOOL 2 [facility] AEROBIC INC INC ISOL SALMONELL A&SHIGELL OVA&THUAN 25543 [facility] ITES 2 [facility] DIRECT INC INC SMEARS CONCENTRA TION & ID DRUG SCR G0434 [facility] NOT 2 CHROMATOG RAPHIC; ANY NUMBER PT ENC ANES 76396 [facility] LOWER 2 ANESTH INTESTINE OF THE BLUE ENDOSCOPY DISTAL DUODENUM CUL 71005 [facility] PRSMPTV 2 [facility] PTHGNC INC INC ORGANISMS SCR DNS CHART SPECIAL 79239 PATHOLOGY [facility] PAT STAIN 2 & GROUP 1 CYTOLOGY MICROORGA LAB NISMS I&R SPCL STN 56571 PATHOLOGY [place] PAT 2 I&R 2 & EXCPT CYTOLOGY MICROORG/ LAB ENZYME/IM CYT COLONOSCO 92093 [facility] ANT ADEOLA ANT PY 2 W/BIOPSY SINGLE/[place] FLX [address]44 [facility] ANT ADEOLA ANT W/RMVL 2 [place] [address] [facility]INGER ABDOMEN & 2 MEDICAL EDIS PELVIS IMAGING W/[place] [address] [facility] LIPASE 2 [facility] [place] [place] [address] PATHOLOGY [facility] PAT SURG 2 & PATHOLOGY CYTOLOGY LAB GROSS&ANNA ROSCOPIC EXAM COMPREHEN 59245 [facility] SIVE 2 [facility] METABOLIC INC INC PANEL BLOOD 94655 [facility] COUNT 2 [facility] COMPLETE INC INC AUTO&[place] [address] [facility] AMYLASE 2 [facility] INC INC URNLS DIP 36260 [facility] STICK/TAB INC [place] [address] [facility] INFUSION 2 [facility] THERAPY/P INC INC ROPHYLAXI S /DX 1ST TO 1 HR EGD 92692 A[facility] ANT ADEOLA ANT TRANSORAL 2 BIOPSY SINGLE/MU LTIPLE URINE 23779 [facility] TEST INC [place] [address] [facility] INFUSION 2 [facility] THERAPY INC INC PROPHYLAX IS/[place] [address] [facility] ABDOMEN & 2 [facility] PELVIS INC INC W/O CONTRAST MATERIAL URNLS DIP 98545 [place] OAKES 2 LC LC STICK/TAB LET RGNT NON-AUTO W/O MICRSCP DRUG SCR G0434 [facility] NOT 1 CHROMATOG RAPHIC; ANY NUMBER PT ENC RADIOLOGI 24374 [place] GINGER C EXAM 1 MEDICAL EDIS CHEST 2 IMAGING VIEWS ASS FRONTAL&L ATERAL PRESSURIZ 49569 [facility] ED/NONPRE 1 [facility] SSURIZED INC INC INHALATIO N TREATMENT INJECTION 58397 [facility] 1 SINGLE/ML T TRIGGER POINT 3/> [place] NJX [address] [facility] DX/THER 1 SBST EPIDURAL/ SUBARACH LUMBAR/SA CRAL FLUOR 70712 [facility] NEEDLE/CA 1 TH SPINE/PAR ASPINAL DX/THER ADDON OPHTH 44115 JIMMIE SCIFR MEDICAL 1 VISION ANG XM&EVAL COMPRE NEW PT 1/> VST MRI 43306 NEURODIAG TALANOW SPINAL 1 NOSTICPSC ROL CANAL LUMBAR W/O CONTRAST MATERIAL RADEX 60735 CENTRAL JARVIS SPINE 1 [place] LC LUMBOSACR ORTHOPAED AL 2/3 ICS PLC VIEWS PRESSURIZ 95708 HYACINTH GARCIAON ED/NONPRE 1 [facility] SSURIZED INC INC INHALATIO N TREATMENT US BREAST 32561 PAYAL MILES REAL 1 MEDICAL EDIS TIME IMAGING W/[place] [address] HYACIN[facility] CL[facility]OS INFUSION 1 [facility] THERAPY INC INC PROPHYLAX IS/DX EA HOUR HYSTEROSC 6812 HYACINTH HYACINTH OPY 1 [facility] INC INC OTHER 6909 HYACINTH CLAROS DILATION 1 [facility] AND INC INC CURETTAGE OF UTERUS ANES 97906 [facility] KAITLIN HYSTEROSC 1 ANESTH ADRIANA OPY&/HYST OF THE EROSALPIN BLUE GOGR[place]HY [place] L[place] [address] CHIPPS KIRK ANNA SURG 1 KIAH & PATHOLOGY DUBILIER GROSS&ANNA ROSCOPIC EXAM HYSTEROSC 68211 HYACINTH HYACINTH OPY BX 1 [facility] ENDOMETRI INC INC UM&/POLYP C W/WO D&C GONADOTRO 18880 HYACINTH CL[facility]OS PIN 1 [facility] CHORIONIC INC INC QUALITATI VE BLOOD 63306 [facility]ACINTH [facility]ACINTH COUNT 1 [facility] COMPLETE INC INC AUTO&[place] [address] [facility] TRANSVAGI 1 [facility] NAL [facility] IADNA 74262 PATHOLOGY PATHOLOGY NEISSERIA 0 & & CYTOLOGY CYTOLOGY GONORRHOE LAB LAB AE AMPLIFIED PROBE TQ IADNA 40637 PATHOLOGY PATHOLOGY CHLAMYDIA 0 & & CYTOLOGY CYTOLOGY TRACHOMAT LAB LAB IS AMPLIFIED PROBE TQ CYTP C/V 04256 PATHOLOGY PATHOLOGY AUTO THIN 0 & & LYR CYTOLOGY CYTOLOGY PREPJ SCR LAB LAB MNL RESCR PHYS INSERTION 30674 [facility] 0 [facility] IMPLANTAB [facility] [place] CONTRACEP TIVE CAPSULES URINE 43466 [facility] 0 [facility] TEST CLINIC OF VISUAL [place] COLOR CMPRSN METHS ETONOGEST J7307 [facility] REL 0 [facility] CNTRACPT CLINIC OF IMPL SYS [place] INCL IMPL & SPL URINE 07141 HYACINTH CLAROS 0 [facility] TEST INC INC VISUAL COLOR CMPRSN METHS RADIOLOGI 30783 Imer MONTAGUE EXAM 0 MEDICAL RANI Pierson CHEST 2 IMAGING VIEWS ASSOCIATE FRONTAL&L S ATERAL INSERTION 77166 [facility], 9 [facility] J INTRAUTER CLINIC OF INE DEVICE [place] IUD PLL[facility] LEVONORGE J7302 [facility], STREL-RLS 9 [facility] J E CLINIC OF INTRAUTER N [place] CNTRACPT PLLC 52 MG URINE 32221 [facility], 9 [facility] J TEST CLINIC OF VISUAL COLOR [place] CMPRSN PLLC METHS CYTP C/V 82638 PATHOLOGY PATHOLOGY AUTO THIN 9 & & LYR CYTOLOGY CYTOLOGY PREPJ SCR LAB LAB MNL RESCR PHYS COMPREHEN 76197 HYACINTH CL[facility]OS SIVE 9 [facility] METABOLIC INC INC PANEL BLOOD 00173 HYACINTH CL[facility]OS COUNT 9 [facility] COMPLETE INC INC AUTO&AUTO DIFRNTL [facility] 66730 [facility] 9 [facility] MANAGEMEN S T 30 MIN/< SUBQ [address] PER [facility] DAY E/M S NORMAL CIRCUMCIS [address] W/CLAMP/O [facility] DEV S W/BLOCK SUBQ [address] PER ASSOCIATE DAY E/M S NORMAL 1ST 83346 [facility] 9 [facility] S CARE PER DAY NML NB LOW 741 HYACINTH CLAROS CERVICAL 9 [facility] INC INC SECTION ANESTHESI 23717 [facility] MCDANIEL, Tato 9 ANESTH LESLEY F OF THE DELIVERY [place] ONLY 23663 KING CARIAS, DELIVERY 9 ARETHA Andrade ONLY 68161 [facility], DELIVERY 9 [facility] J ONLY CLINIC OF W/POSTPAR IVAN CARE [place] PLL DOPPLER 87195 [facility], VELOCIMET 9 [facility] J RY CLINIC OF UMBILICAL ARTERY [place] PLLC 82213 [facility], BIOPHYSIC 9 [facility] J AL CLINIC OF PROFILE W/[place] [address] [facility], 9 [facility] J UTERUS CLINIC OF LIMITED 1/> [place] [facility] [place] PREG 90521 [facility], UTERUS 9 [facility] J REAL TIME CLINIC OF F/U TRNSABDL [place] PER FETUS PLLC 39750 [facility], BIOPHYSIC 9 [facility] J AL CLINIC OF PROFILE W/O [place] NON-STRES [facility] S TESTING DOPPLER 36817 [facility], VELOCIMET 9 [facility] J RY [facility] UMBILICAL ARTERY [place] [facility] DOPPLER 39469 [facility], VELOCIMET 9 [facility] J RY [facility] UMBILICAL [facility]ERY [place] PLLC 02757 [facility], BIOPHYSIC 9 [facility] J AL CLINIC OF PROFILE W/[place] [address] [facility], 9 [facility] J UTERUS CLINIC OF LIMITED 1/> [place] [facility] [place] 14917 [facility], UTERUS 9 [facility] J REAL TIME CLINIC OF F/U TRNSABDL [place] PER FETUS PLLC 22103 [facility], BIOPHYSIC 9 [facility] J AL CLINIC OF PROFILE W/O [place] NON-STRES PLLC S TESTING DOPPLER 60860 [facility], VELOCIMET 9 [facility] J RY [facility] UMBILICAL ARTERY [place] [facility] BLOOD 17143 HYACINTH GARCIAON COUNT 9 [facility] COMPLETE INC INC AUTO&AUTO DIFRNTL WBC FIBRIN 52958 HYACINTH CL[facility]OS DGRADJ 9 [facility] PRODUCTS INC INC D-DIMER QUAL/SEMI LACI FIBRINOGE 34027 HY[facility]INTH CL[facility]OS N 9 [facility] ACTIVITY INC INC PROTHROMB 09760 HYACINTH CLAROS IN TIME 9 [place] [address] HYACINTH CLAROS BLOOD/URI 9 [facility] C ACID INC INC THROMBOPL 71871 HYACINTH CL[facility]OS ASTIN 9 [facility] TIME INC INC PARTIAL PLASMA/WH OLE BLOOD BASIC 84265 HYACINTH CLAROS METABOLIC 9 [facility] PANEL INC INC CALCIUM TOTAL TRANSFERA 26829 HYACINTH CLAROS SE 9 [facility] ASPARTATE INC INC AMINO AST SGOT TRANSFERA 54114 HYACINTH CLAROS SE 9 [facility] ALANINE INC INC AMINO ALT SGPT 73467 HYACINTH CL[facility] NONSTRESS 9 [facility] TEST INC INC URNLS DIP 04642 HYACINTH CLAROS 9 [facility] STICK/TAB INC INC LET REAGENT AUTO MICROSCOP Y OBSERVATI 14689 KING CARIAS, ON/INPATI 9 ARETHA Andrade [facility] HOSPITAL CARE 55 MINUTES [place] PREG 40956 [facility], UTERUS 9 [facility] J REAL TIME CLINIC OF F/U TRNSABDL [place] PER FETUS [facility] BLD GLU A4253 [facility] TEST/REAG 9 PHARMACY PHARMACY T STRIPS #591 #591 HOME BLD GLU MON-50 DOPPLER 04762 [facility], VELOCIMET 9 [facility] J RY CLINIC OF UMBILICAL ARTERY [place] [facility] 61131 [facility] BIOPHYSIC 9 [facility]ALTH T[facility] Lott AL CLINIC OF PROFILE W/O [place] NON-STRES [facility] S TESTING 73493 W[facility] BIOPHYSIC 9 [facility] J AL CLINIC OF PROFILE W/O [place] NON-STRES [facility] S TESTING DOPPLER 92603 [facility], VELOCIMET 9 [facility] J RY CL[facility]IC OF UMBILICAL ARTERY [place] [facility] CUL BACT 03108 COMBINED COMBINED XCPT 9 PHYSICIAN PHYSICIAN URINE S LAB S LAB BLOOD/[place] 52351 [facility], UTERUS 9 [facility] J REAL TIME CLINIC OF F/U TRNSABDL [place] PER [facility] [place] 85450 [facility], UTERUS 9 [facility] J REAL TIME CLINIC OF F/U TRNSABDL [place] PER [facility] DOPPLER 18228 [facility], VELOCIMET 9 [facility] J RY [facility] OF UMBILICAL ARTERY [place] [facility] 18600 [facility], BIOPHYSIC 9 [facility] J AL CLINIC OF PROFILE W/O [place] NON-STRES [facility] [place] P[place] 37936 [facility] UTERUS 9 [facility] REAL TIME HOSP HOSP F/U TRNSABDL PER FETUS CUL BACT 52036 COMBINED COMBINED XCPT 9 PHYSICIAN PHYSICIAN URINE S LAB S LAB BLOOD/STO OL AEROBIC ISOL ANTIBODY 87173 COMBINED COMBINED CHLAMYDIA 9 PHYSICIAN [place]YSIC[place] P[place] [address]20 [facility] UTERUS 9 [facility] REAL TIME HOSP HOSP F/U TRNSABDL PER FETUS RADIOLOGI 78217 [place] Imer TRIPLETT 9 MEDICAL RANI Pierson EXAMINATI IMAGING ON CHEST ASSOCIATE SINGLE S VIEW FRONTAL 23086 [facility], NONSTRESS 9 [facility] J TEST CLINIC OF [place] [facility] 57827 [facility], NONSTRESS 9 [facility] J TEST CLINIC OF [place] [facility] URNLS DIP 22219 HYACINTH CLAROS 9 [facility] STICK/TAB INC INC LET REAGENT AUTO [place]CROSCOP [place] P[place] 90660 [facility] UTERUS 9 [facility] REAL TIME HOSP HOSP F/U TRNSABDL PER FETUS BLD GLU A4253 [facility] TEST/REAG 8 PHARMACY PHARMACY T STRIPS #591 #591 HOME BLD GLU MON-50 [place] PREG 28207 [facility] UTERUS 8 [facility] W/DETAIL HOSP HOSP ANISH 1ST GESTATION DIAB G0109 [facility] SELF-MGMT 8 [facility] TRN [facility] HOSP GROUP SESSION PER 30 MIN GONADOTRO 15469 [facility] OF PIN 8 [employer] CHORIONIC QUANTITAT ROSS URNLS DIP 14444 DHS/CO HYACINTH [address] [place] [address] HEALTH STICK/TAB [facility] LET RGNT BANK ACCT NON-AUTO W/O MICRSCP ALPHA-FET 94219 [facility] OF [facility] OF OPROTEIN 8 [employer] [facility] [employer] [facility] [place] [place] [address] LAB[facility] OF [facility]ONE OF ESTRIOL 8 [facility] INC GLUC BLD 26539 [facility] GLUC MNTR [address] [place] [address] DEV [facility] CLEARED BANK ACCT FDA SPEC HOME USE URNLS DIP 39862 DHS/CO HYACINTH [address] [place] [address] HEALTH STICK/TAB [facility] LET RGNT BANK ACCT NON-AUTO W/O MICRSCP CYTP 31885 [facility] CERV/VAG [address] [place] [address] AUTO THIN [facility] LAYER BANK ACCT PREP MNL SCREEN ANTIBODY 01467 [facility] OF SCREEN 8 [employer] [facility] [employer] INC RBC EACH SERUM TECHNIQUE BLOOD 10161 [facility] TYPING 8 [employer] [facility] [place] INC SEROLOGIC ABO BLOOD 03859 [facility] OF TYPING 8 [employer] [facility] [employer] INC SEROLOGIC RH (D) COLLECTIO 92280 [facility] HYACIN[facility] N VENOUS [address] [place] [address] BLOOD [facility] VENIPUNCT BANK ACCT URE IADNA 84328 [facility] NEISSERIA [address] [place] [address] GONORRHOE BANK ACCT AE AMPLIFIED PROBE TQ SYPHILIS 13037 [facility] TEST [address] [place] [address] NON-TREPO [facility] NEMAL BANK ACCT ANTIBODY QUAL IADNA 75245 [facility] CHLAMYDIA [address] [place] [address] TRACHOMAT BANK [place] [address] DHS/CO HYACINTH HEPATITIS 8 [facility] SURFACE BANK ACCT ANTIGEN ANTIBODY 92058 DHS/CO HYACINTH RUBELLA 8 [facility] BANK ACCT BLOOD 30482 HYACINTH CLAROS COUNT 8 [facility] COMPLETE INC INC AUTO&AUTO DIFRNTL WBC URNLS DIP 72005 HYACINTH GARCIAON 8 [facility] STICK/TAB INC INC LET REAGENT AUTO [place]CROSCOP [place] P[place] 90870 PAYAL UZIEL, UTERUS 8 MEDICAL RANI P REAL TIME IMAGING W/IMAGE ASSOCIATE DCMTN S TRANSVAG GONADOTRO 51787 HYACINTH CLAROS PIN 8 [facility] CHORIONIC INC INC QUANTITAT ROSS CULTURE 86446 HYACINTH CLAROS BACTERIAL 8 [facility] INC INC QUANTTATI VE COLONY COUNT URINE CULTURE 77996 HYACINTH CLAROS BACTERIAL 8 [facility] INC INC QUANTTATI VE COLONY COUNT URINE COMPREHEN 41404 HYACINTH CLAROS SIVE 8 [facility] METABOLIC INC [place] PREG 51653 HYACINTH CLAROS UTERUS 8 [facility] REAL TIME INC INC W/[place] [address] HYACINTH CLAROS LIPASE 8 [facility] INC INC URNLS DIP 40194 HYACINTH CLAROS 8 [facility] STICK/TAB INC INC LET REAGENT AUTO MICROSCOP Y BLOOD 14687 HYACINTH CLAROS COUNT 8 [facility] COMPLETE INC INC AUTO&[place] [address] HYACINTH CLAROS AMYLASE 8 [facility] INC INC URINE 88364 HYACINTH CLAROS 8 [facility] TEST INC INC VISUAL COLOR CMPRSN METHS Encounters Encounter Start End Date Code Location Performer Type Date OFFICE 50442 [facility] COBIAN OUTPATIEN 7 7 DIABETIC T VISIT CENTER, 25 P MINUTES OFFICE 59722 JAQUELIN VILLEGAS OUTPATIEN 7 7 N FAMILY T VISIT CHIROPRAC 10 T MINUTES OFFICE 39534 [facility] CO[facility]AN OUTPATIEN 6 6 DIABETIC T VISIT CENTER, 15 P MINUTES HOSPITAL HYACINTH - 6 6 [facility] OUTPATIEN INC T OFFICE 99715 OLYA DOBSON OUTPATIEN 6 6 [facility] 15 MINUTES OFFICE 51196 [facility] JEANINE OUTPATIEN 6 6 PHYSICIAN T VISIT S GROUP 25 MINUTES OFFICE 45968 OLYA DOBSON OUTPATIEN 6 6 [facility] T VISIT 15 MINUTES OFFICE 24343 [facility] ARANZA OUTPATIEN 6 6 DIABETIC T VISIT CENTER, 25 P MINUTES OFFICE 80261 OLYA DOBSON OUTPATIEN 6 6 [facility] T VISIT 15 MINUTES OFFICE 42816 OLYA DOBSON OUTPATIEN 6 6 [facility] T VISIT 15 MINUTES HOSPITAL HYACINTH - 6 6 [facility] OUTPATIEN INC T OFFICE 18745 OLYA DOBSON OUTPATIEN 6 6 [facility] T VISIT 15 MINUTES OFFICE 76147 MATE[facility] COBIAN SOB OUTPATIEN 6 6 DIABETIC T VISIT CENTER, 25 P MINUTES OFFICE 76338 WILLIEGORDON ARANZA WOLF OUTPATIEN 6 6 DIABETIC T VISIT 5 CENTER, MINUTES P OFFICE 64011 JAQUELIN VILLEGAS OUTPATIEN 6 6 N FAMILY RANDY T VISIT CHIROPRAC 10 T MINUTES OFFICE 27287 OLYA DOBSON OUTPATIEN 6 6 [facility] T VISIT 15 MINUTES OFFICE 27886 [facility] MARCO OUTPATIEN 6 6 PHYSICIAN DANIKA T VISIT S GROUP 15 MINUTES OFFICE 85119 OLYA DOBSON OUTPATIEN 6 6 [facility] T VISIT 15 MINUTES OFFICE 83533 MATEO COBIAN SOB OUTPATIEN 6 6 DIABETIC T VISIT CENTER, 15 P MINUTES EMERGENCY 11070 JUSTINA SANCHEZ 5 5 PHYSICIAN DEPARTMEN S, PLLC T VISIT HIGH/URGE NT SEVERITY OFFICE 75778 OLYA DOBSON OUTPATIEN 5 5 [facility] T VISIT 15 MINUTES OFFICE 56964 LEODANSARAI VILLEGAS OUTPATIEN 5 5 N FAMILY RANDY T VISIT CHIROPRAC 10 T MINUTES OFFICE 06974 MATEO WOLF OUTPATIEN 5 5 DIABETIC T VISIT CENTER, 25 P MINUTES OFFICE 07329 [facility] LARA OUTPATIEN 5 5 PHYSICIAN DANIKA T VISIT S GROUP 15 MINUTES EMERGENCY 05030 HYACINTH 5 5 [facility] DEPARTMEN INC T VISIT LIMITED/M INOR PROB HOSPITAL HYACINTH - 5 5 [facility] OUTPATIEN INC T EMERGENCY 88066 JUSTINA TELLEZ 5 5 PHYSICIAN DEPARTMEN S, PLLC T VISIT MODERATE SEVERITY HOSPITAL HYACINTH - 5 5 [facility] OUTPATIEN INC T HOSPITAL HYACINTH - 5 5 [facility] OUTPATIEN INC T HOSPITAL HYACINTH - 5 5 [facility] OUTPATIEN INC T EMERGENCY 60707 [facility] 5 5 [facility] DEPARTMEN INC T VISIT MODERATE SEVERITY EMERGENCY 75384 JUSTINA SOLORZANO 5 5 PHYSICIAN ANNA DEPARTMEN S, PLLC T VISIT HIGH/URGE NT SEVERITY HOSPITAL HYACINTH - 5 5 [facility] OUTPATIEN INC T HOSPITAL HYACINTH - 5 5 [facility] OUTPATIEN INC T OFFICE 33267 MATEO PEDROZA OUTPATIEN 5 5 FOOT & N SHABNAM T VISIT ANKLE CE 15 MINUTES OFFICE 53762 OLYA DOBSON OUTPATIEN 5 5 [facility] T VISIT 15 MINUTES OFFICE 01276 [place] [facility] OUTPATIEN 5 5 DIABETIC R TAR T VISIT CENTER 25 MINUTES EMERGENCY 14305 JUSTINA SOLORZANO 5 5 PHYSICIAN ANNA DEPARTMEN S, PLLC T VISIT MODERATE SEVERITY OFFICE 71138 [facility] SCHULSTAD OUTPATIEN 5 5 PHYSICIAN CAM T VISIT S GROUP 10 MINUTES HOSPITAL HYACINTH - 5 5 [facility] OUTPATIEN INC T OFFICE 88664 [facility] OJEDA OUTPATIEN 5 5 PHYSICIAN MARGOTH T VISIT S GROUP 15 MINUTES OFFICE 37040 [facility] SCHULSTAD OUTPATIEN 5 5 PHYSICIAN CAM T VISIT S GROUP 15 MINUTES EMERGENCY 35373 JUSTINA SOLORZANO 5 5 PHYSICIAN ANNA DEPARTMEN S, PLLC T VISIT HIGH/URGE NT SEVERITY OFFICE 65531 [facility] OJEDA OUTPATIEN 5 5 PHYSICIAN MARGOTH T VISIT S GROUP 15 MINUTES OFFICE 07599 [facility] OJEDA OUTPATIEN 5 5 PHYSICIAN MARGOTH T NEW 20 S GROUP MINUTES HOSPITAL HYACINTH - 5 5 [facility] OUTPATIEN INC T EMERGENCY 49599 JUSTINA ULLOA 5 5 PHYSICIAN LINARES DEPARTMEN S, PLLC T VISIT HIGH/URGE NT SEVERITY OFFICE 64342 OLYA DOBSON OUTPATIEN 5 5 [facility] T VISIT 15 MINUTES HOSPITAL HYACINTH - 5 5 [facility] OUTPATIEN INC T OFFICE 38188 MATEO COBIAN SOB OUTPATIEN 5 5 DIABETIC T VISIT CENTER, 25 P MINUTES OFFICE 68435 [facility] YMAN OUTPATIEN 5 5 PHYSICIAN EUG T VISIT S GROUP 10 MINUTES OFFICE 98139 [facility] JEANINE OUTPATIEN 5 5 PHYSICIAN ANNA T VISIT S GROUP 15 MINUTES OFFICE 82625 HYACINTH PAIZ OUTPATIEN 5 5 [facility]IAL ANNA T VISIT HOSPITAL 15 MINUTES OFFICE 58521 MATEO FRANCOSTUARTLeticia WOLF OUTPATIEN 5 5 DIABETIC T VISIT CENTER [address] PEDROZA OUTPATINICHOLAS 5 5 DANIEL Leon SHABNAM T VISIT MIRTA 15 DPM PSC MINUTES OFFICE 58475 OLYA DOBSON OUTPATIEN 5 5 [facility] T VISIT 15 MINUTES HOSPITAL HYACINTH - 5 5 [facility] OUTPATIEN INC T HOSPITAL CENTRAL - 5 5 [facility] OUTPATIEN HOSP T OFFICE 86042 [facility] 5 5 HEALTH AYAD T VISIT MEDICAL 40 GROUP MINUTES OFFICE 44028 JAQUELIN VILLEGAS OUTPATIEN 5 5 N FAMILY RANDY T VISIT CHIROPRAC 10 T MINUTES OFFICE 24876 [facility] MARCO OUTPATIEN 4 4 PHYSICIAN DANIKA T VISIT S GROUP 15 MINUTES OFFICE 78970 OLYA DOBSON OUTPATIEN 4 4 [facility] T VISIT 15 MINUTES OFFICE 20570 [facility] JONES TRA OUTPATIEN 4 4 [place] T VISIT ORTHOPAED 15 I[facility] MINUTES OFFICE 69508 [facility] CONSULTAT 4 4 NEUROLOGY AYAD ION NEW/ESTAB CONSULTAN PATIENT T 60 MIN OFFICE 83743 [facility] SHANEPATIEN 4 4 PHYSICIAN T VISIT S GROUP 25 MINUTES OFFICE 34294 OLYA DOBSON OUTNATALIE 4 4 [facility] T VISIT 15 MINUTES OFFICE 88320 [facility] JONES TRA OUTPATIEN 4 4 [place] T VISIT ORTHOPAED 15 [facility] MINUTES OFFICE 48237 OLYA PAL 4 4 [facility] T VISIT 15 MINUTES EMERGENCY 81410 [facility] 4 4 TRUDI DEPARTMEN EMERGENCY T VISIT PHYS HIGH/URGE NT SEVERITY OFFICE 97694 MATEO PEDROZA OUTPATIEN 4 4 FOOT & N SHABNAM T VISIT ANKLE CE 15 MINUTES OFFICE 61812 JONES TRA JONES TRA OUTPATIEN 4 4 T VISIT 15 MINUTES OFFICE 46218 MATEO HAZELSO OUTPATIEN 4 4 FOOT & N SHABNAM T NEW 30 ANKLE CE MINUTES OFFICE 73814 OLYA LYNNPATIEN 4 4 [facility] T VISIT 15 MINUTES OFFICE 29991 BAKARI VILLEGAS OUTPATIEN 4 4 RANDY RANDY T VISIT 10 MINUTES EMERGENCY 91922 JEANINE SOLORZANO 4 4 ANNA ANNA DEPARTMEN T VISIT HIGH/URGE NT SEVERITY OFFICE 76663 OLYA DOBSON OUTPATIEN 4 4 [facility] T VISIT 15 MINUTES OFFICE 63137 BAKARI VILLEGAS OUTPATIEN 4 4 RANDY RANDY T VISIT 10 MINUTES OFFICE 50986 BAKARI VILLEGAS OUTPATIEN 4 4 RANDY RANDY T VISIT 10 MINUTES OFFICE 13798 [facility] OUTPATIEN 4 4 DANIKA DANIKA T VISIT 15 MINUTES HOSPITAL HYACINTH - 4 4 [facility] OUTPATIEN INC T OFFICE 95409 BAKARI VILLEGAS OUTPATIEN 4 4 RANDY RANDY T NEW 30 MINUTES OFFICE 90263 OLYA PAL 4 4 [facility] T VISIT 15 MINUTES OFFICE 90150 OLYA DOBSON OUTPATIEN 4 4 [facility] T VISIT 15 MINUTES OFFICE 64947 OLYA DOBSON OUTPATINICHOLAS 4 4 [facility] T VISIT 15 MINUTES PERIODIC 62616 [facility] PREVENTIV 4 4 DANIKA DANIKA E MED EST PATIENT 18-39 YRS OFFICE 55229 OLYA DOBSON OUTPATIEN 3 3 [facility] T VISIT 15 MINUTES EMERGENCY 54470 [facility] NES[facility]T 3 3 DEPARTMEN T VISIT MODERATE SEVERITY OFFICE 11-27-201 11-27-201 65243 ADEOLA VILLALTA ADEOLA ANT OUTPATIEN 3 3 T VISIT 15 MINUTES OFFICE 50343 OLYA DOBSON OUTPATIEN 3 3 [facility] T VISIT 15 MINUTES EMERGENCY 54494 JEANINE SOLORZANO 3 3 ANNA [facility] DEPARTMEN T VISIT HIGH/URGE NT SEVERITY HOSPITAL HYACINTH - 3 3 [facility] OUTPATIEN INC T OFFICE 77232 ADEOLA ANT ADEOLA ANT OUTPATIEN 3 3 T VISIT 25 MINUTES OFFICE 88517 WILMER MUÑIZ OUTPATIEN 3 3 T VISIT 25 MINUTES HOSPITAL HYACINTH - 3 3 [facility] OUTPATIEN INC T EMERGENCY 91925 LUZ ESCOBAR DEPT 3 3 III FIDE III FIDE VISIT HIGH SEVERITY& THREAT [facility] HYACINTH - 3 3 [facility] OUTPATIEN INC T EMERGENCY 42528 HYACINTH 3 3 [facility] DEPARTMEN INC T VISIT MODERATE SEVERITY OFFICE 84396 OLYA OLYA OUTPATIEN 3 3 [facility] T VISIT 15 MINUTES OFFICE 51253 NITESHVICKEY OLYA LYNNPATIEN 3 3 [facility] T VISIT 15 MINUTES OFFICE 70865 GUILLEN ANTONINO MUÑIZ OUTPATIEN 3 3 T VISIT 15 MINUTES HOSPITAL HYACINTH - 3 3 [facility] OUTPATIEN INC T OFFICE 92922 ADEOLA ANT ADEOLA ANT OUTPATIEN 3 3 T VISIT 25 MINUTES [facility]OSP[facility] - [facility] 3 [facility] T EMERGENCY 98606 SHAUN RASHID DEPT 3 3 EMERGENCY FIDE VISIT SERVICES HIGH SEVERITY& THREAT [facility] EMERGENCY 06873 [facility]ACIN[facility] 3 3 [facility] DEPART[facility] T VISIT LOW/MODER SEVERITY OFFICE 77154 WILMER GUILLEN ANTONINO OUTPATIEN 2 2 T VISIT 15 MINUTES OFFICE 72392 OLYA DOBSON OUTPATIEN 2 2 [facility] 15 MINUTES OFFICE 78713 OLYA DOBSON OUTPATIEN 2 2 [facility] T VISIT 15 MINUTES OFFICE 52112 ADEOLA ANT ADEOLA ANT OUTPATIEN 2 2 T VISIT 15 MINUTES PERIODIC 85453 [facility]CO LARA PREVENTIV 2 2 DANIKA DANIKA E MED EST PATIENT 18-39 YRS OFFICE 91324 COMMONWEA OUTPATIEN 2 2 [facility] SLEEP T VISIT AND REHA 10 MINUTES [facility]OSPITAL [facility]ACIN[facility] - 2 2 [facility] T OFFICE 13677 OLYA OLYA OUTPATIEN 2 2 [facility] T VISIT 15 MINUTES OFFICE 51695 WILMER GUILLEN ANTONINO OUTPATIEN 2 2 T VISIT 25 MINUTES HOSPITAL [facility]ACIN[facility] - 2 2 [facility] 49497 MARCO LARA OUTPATIEN 2 2 DANIKA DANIKA T VISIT 15 MINUTES OFFICE 14291 OLYA DOBSON OUTPATIEN 2 2 [facility] 15 MINUTES OFFICE 95567 COMMONWE[facility] HILARIO II OUTPATIEN 2 2 [facility] SLEEP VINCENT T NEW 30 AND REHA MINUTES OFFICE 39854 OLYA DOBSON OUTPATIEN 2 2 [facility] T VISIT 15 MINUTES OFFICE 02296 [facility]CO LARA OUTPATIEN 2 2 DANIKA DANIKA T VISIT 25 MINUTES OFFICE 34851 WILMER GUILLEN ANTONINO OUTPATIEN 2 2 T NEW 45 MINUTES HOSPITAL ANTHONYON - 2 2 [facility] T OFFICE 62405 ADEOLA ANT ADEOLA ANT OUTPATIEN 2 2 T VISIT 25 MINUTES OFFICE 28510 SAMARIA GARIBAY OUTPATIEN 2 2 T NEW 30 MINUTES OFFICE 78675 SAMARIA GARIBAY CONSULTAT 2 2 ION NEW/ESTAB PATIENT 40 MIN OFFICE 66622 JONES TRA JONES TRA OUTPATIEN 2 2 T VISIT 15 MINUTES OFFICE 32487 JONES TRA JONES TRA OUTPATIEN 2 2 T VISIT 10 MINUTES OFFICE 40897 JONES TRA JONES TRA OUTPATIEN 2 2 T VISIT 15 MINUTES OFFICE 04775 OLYA DOBSON OUTPATIEN 2 2 [facility] T VISIT 15 MINUTES [facility] - 2 2 [facility] OUTPATIEN INC T OFFICE 16393 [facility] 2 2 T VISIT 15 MINUTES OFFICE 44508 ADEOLA ANT ADEOLA ANT OUTPATIEN 2 2 T VISIT 25 MINUTES OFFICE 70060 [facility] 2 2 T VISIT 15 MINUTES EMERGENCY 87489 SHAUN HOLLAND DEPT 2 2 EMERGENCY VISIT SERVICES HIGH SEVERITY& THREAT [facility] HYACIN[facility] - 2 2 [facility] OUTPATI[facility] INC T EMERGENCY 05670 [facility]ACIN[facility] 2 2 [facility] T VISIT MODERATE SEVERITY OFFICE 69453 ADEOLA ANT ADEOLA ANT OUTPATIEN 2 2 T NEW 45 MINUTES OFFICE 41241 JEANINE SOLORZANO OUTPATIEN 2 2 ANNA ANNA T NEW 20 MINUTES OFFICE 62258 [facility] 2 2 T VISIT 15 MINUTES [facility] - 2 2 [facility] T OFFICE 25858 [facility] OUTPATIEN [address] [facility] 10 HOSPITAL MINUTES P OFFICE 80709 OLYA DOBSON OUTPATIEN 1 1 [facility] T VISIT 15 MINUTES OFFICE 59686 [facility] 1 1 T VISIT 15 MINUTES OFFICE 51223 [facility] 1 1 T VISIT 15 MINUTES EMERGENCY 67282 [facility]ACINTH 1 1 [facility] DEPARTMEN INC T VISIT MODERATE SEVERITY EMERGENCY 12200 LIANG MARGOTH LIANG MARGOTH 1 1 DEPARTMEN T VISIT HIGH/URGE NT SEVERITY [facility]OSP[facility] - 1 1 [facility] OUTPATIEN INC T OFFICE 01237 [facility] 1 1 T VISIT 15 MINUTES OFFICE 05713 [facility] 1 1 T VISIT 15 MINUTES OFFICE 60060 [facility] 1 1 T VISIT 15 MINUTES OFFICE 34681 [facility] 1 1 T VISIT 15 MINUTES OFFICE 42911 OLYA DOBSON OUTPATIEN 1 1 [facility] T VISIT 15 MINUTES OFFICE 60409 CENTRAL JARVIS OUTPATIEN 1 1 [place] [facility] T VISIT [facility]THOPAED 15 [facility] MINUTES OFFICE [id number] [facility] JARVIS CONSULTAT 1 1 [place] [facility] NEW/ESTAB [facility] PATIENT 40 MIN EMERGENCY 25769 HYACINTH 1 1 [facility] DEPARTMEN INC T VISIT MODERATE SEVERITY EMERGENCY 96550 SHAUN PEREYRA 1 1 EMERGENCY ANNA DEPARTMEN SERVICES T VISIT HIGH/URGE NT SEVERITY HOSPITAL HYACINTH - 1 1 [facility] OUTPATIEN INC HOSPITAL HYACINTH [facility] 1 1 [facility] OUTPATIEN [facility] OFFICE 23362 [facility] 1 1 [facility]IN[facility] OF 15 ROLAND MINUTES EMERGENCY 77782 HYACINTH 1 1 [facility] T VISIT LOW/MODER SEVERITY HOSPITAL HYACINTH - 1 1 [facility] 45495 SHAUN ESCOBAR 1 1 EMERGENCY III [facility] T VISIT HIGH/URGE NT SEVERITY OFFICE 42003 [facility] 1 1 [facility] T [facility]IT [facility] OF 15 ROLAND MINUTES HOSPITAL HYACINTH [facility] 1 1 [facility] HYACINTH [facility] 1 1 [facility] OFF[facility] 57574 OLYA DOBSON OUTPATIEN 1 1 [facility] NEW 30 MINUT[facility] OFFICE 27069 [facility] 1 1 [facility] T VISIT CLINIC OF 15 ROLAND MINUTES [facility] 37004 [facility] PREVENTIV 0 0 [facility] E MED EST CLINIC OF PATIENT ROLAND 18-39 YRS EMERGENCY 02584 SHAUN ESCOBAR 0 0 EMERGENCY III, [facility] T VISIT HIGH/URGE ASSOCIATE NT S SEVERITY EMERGENCY 26051 HYACINTH 0 0 [facility] T VISIT LOW/MODER SEVERITY HOSPITAL HYACINTH - 0 0 [facility] OFF[facility] 14451 [facility] OUTPATIEN 9 9 [facility] T VISIT CLINIC OF 15 MINUTES [facility] EMERGENCY 75953 HYACINTH 9 9 [facility] T VISIT LIMITED/M [facility] HOSPITAL HYACINTH - 9 9 [facility] 37621 SHAUN HERNANDEZ, 9 9 EMERGENCY GOSIA R [facility] T VISIT HIGH/URGE ASSOCIATE NT S SEVERITY HOSPITAL HYACINTH - 9 9 [facility] OFFICE 58792 [facility] OUT[facility]IEN 9 9 [facility] T VISIT CLINIC OF 25 MINUTES [facility] OFFICE 24877 [facility], OUTPATIEN 9 9 [facility] T VISIT CLINIC OF 15 MINUTES [facility] HYACINTH - 9 9 [facility] HYACINTH - 9 9 [facility] HYACINTH [facility] 9 9 [facility] C[facility]TRAL - 9 9 [facility] OFFICE 63712 [facility] OUTPATIEN 9 9 [facility] T VISIT CLINIC OF 15 MINUTES [facility] OFFICE 31223 [facility], OUTPATIEN 9 9 [facility] J T VISIT CLINIC OF 15 MINUTES [facility] C[facility]AL - 9 9 [facility] T OFFICE 35138 MEET, JORDON 9 9 SHANELLE ION DIAGNOSTI A NEW/ESTAB [facility] PATIENT 15 MIN OFFICE 67826 ROSENTHAL ROSENTHAL OUTPATIEN 9 9 JR, J V JR, J V T VISIT 15 MINUTES HOSPITAL HYACINTH - 9 9 [facility] EMERGENCY 71230 HYACINTH 9 9 [facility] VISIT MODERATE SEVERITY OFFICE 44395 [facility], OUTPATIEN 9 9 [facility] J T VISIT CLINIC OF 15 MINUTES [facility] HYACINTH - 9 9 [facility] INC T OFFICE 95446 [facility] OUTPATI[facility] 9 9 [facility] T VISIT CLINIC OF 15 MINUTES [facility] OFFICE 70113 [facility], OUTPATIEN 9 9 [facility] T VISIT CLINIC OF 15 MINUTES [facility] HYACINTH - 9 9 [facility] OUTPAT[facility] INC T EMERGENCY 30473 HYACINTH 9 9 [facility] DEPARTMEN INC T VISIT LIMITED/M [facility] HYACINTH - 9 9 [facility] OUT[facility] INC T EMERGENCY 22669 ANGELA RESENDEZ, 9 9 [facility] T VISIT ON HIGH/URGE NT SEVERITY HOSPITAL C[facility]TRAL - 9 9 [facility] OFF[facility] 44604 ROSENTHALQUINCY BAILEYILLO OUTPATIEN 8 8 JR, J V JR, J V T VISIT 15 MINUTES EMERGENCY 18521 HYACINTH 8 8 [facility] DEPARTMEN [facility] T VISIT LIMITED/M [facility] HYACINTH - 8 8 [facility] T [facility] C[facility]AL - 8 8 [facility] OFF[facility] 73160 [facility] 10 [facility] MINUT[facility] OFFICE 37263 [facility] OUTPATIEN 8 8 [facility] T NEW 30 [facility] MINUTES [facility]PITAL HYACINTH - 8 8 [facility] OUTPATIEN INC T EMERGENCY 68774 HYACINTH 8 8 [facility] DEPARTMEN INC T VISIT MODERATE SEVERITY EMERGENCY 42464 HYACINTH 8 8 [facility] DEPARTMEN INC T VISIT HIGH/URGE NT SEVERITY HOSPITAL HYACINTH [facility] 8 8 [facility]
--- OUTSIDE RECORDS SUMMARY | 2016-06-18 14:28 | External Medical Summary Rpt ---
Author Author , Organization [employer] Address Unknown Phone Unavailable Care Team Providers Care Lens Polisher Hand Name Role Phone [facility]AKES LC, OAKES Unavailable Unavailable LC [employer] Unavailable Unavailable INC, [employer] AMJAD, AMJAD Unavailable Unavailable AMJAD SOB, AMJAD SOB Unavailable Unavailable ARNOLD MERCY, ARNOLD Unavailable Unavailable MERCY ARNOLD MERCY, ARNOLD Unavailable Unavailable MERCY DELGADO LAURA, DELGADO LAURA Unavailable Unavailable [facility] Unavailable Unavailable [facility], [facility] FADI KRAFT, Unavailable Unavailable FADI KRAFT, DEX Unavailable Unavailable ROCIO BESSON MELINDA, BESSON Unavailable Unavailable MELINDA ADEOLA ANT, ADEOLA ANT Unavailable Unavailable ADEOLA ANT, ADEOLA ANT Unavailable Unavailable [facility] Kaylie ROSENTHAL JR, V, Unavailable Unavailable Kaylie ROSENTHAL JR, V [facility], Unavailable Unavailable [facility] Unavailable Unavailable [facility] [...] Unavailable LAB, [facility] Unavailable Unavailable AND REHA, [facility] OF Unavailable Unavailable THE BLUE, [facility] THE BLUE WILFRID PAT, [...] DANIEL S, Unavailable Unavailable JEANINE, DANIEL S [facility] Unavailable Unavailable CHIROP[facility]CT, [facility] MAL, RONDAL E, Unavailable Unavailable MAL, RONDAL E KIRK ANNA, KIRK ANNA Unavailable Unavailable LIANG MARGOTH, LIANG MARGOTH Unavailable Unavailable LIANG MARGOTH, LIANG MARGOTH Unavailable Unavailable KAITLIN ADRIANA, KAITLIN Unavailable Unavailable ADRIANA GOSIA HERNANDEZ, Unavailable Unavailable GOSIA HERNANDEZ GERALD R, Unavailable Unavailable [facility] Unavailable Unavailable CENTER, [facility] Unavailable Unavailable INC, [facility] Unavailable Unavailable HOSPITAL, [facility] Unavailable Unavailable HOSPITAL P, [facility] P [facility], Unavailable Unavailable [facility] ETHAN LONG Unavailable Unavailable ETHAN DARRON, ETHAN Unavailable Unavailable DARRON JONES TRA, JONES TRA Unavailable Unavailable JONES TRA, JONES TRA Unavailable Unavailable HILARIO II VINCENT, HILARIO Unavailable Unavailable II VINCENT [facility] Unavailable Unavailable IM[facility]ING [facility], [facility], Unavailable Unavailable [facility], Unavailable Unavailable [facility] CONCEPCION JR DWI, CONCEPCION Unavailable Unavailable JR DWI [facility] Unavailable Unavailable CENTER, [facility] Unavailable Unavailable CENTER, P, [facility], P [facility] Unavailable Unavailable [facility], [facility] SANABRIA MERCY, SANABRIA Unavailable Unavailable [facility] LAWRENCE HAM, LAWRENCE HAM Unavailable Unavailable LAWRENCE HAM, LAWRENCE HAM Unavailable Unavailable [facility], Unavailable Unavailable [facility], Unavailable Unavailable [facility] Unavailable Unavailable SERVICES, [facility] RAM GRACE, RAM Unavailable Unavailable [...] [facility]ACY [id number] # Unavailable Unavailable [id number], [facility] # [id number] WEHRMAN III FIDE, Unavailable Unavailable WEHRMAN III FIDE WEHRMAN IIILESLEY, Unavailable Unavailable WEHRMAN IIILESLEY, PARISH NESBITT Unavailable Unavailable PARISH NESBITT, PARISH NESBITT Unavailable Unavailable WHANG LANI, WHANG LANI Unavailable Unavailable WHANG LANI, WHANG LANI Unavailable Unavailable JARVIS PLATT, JARVIS Unavailable Unavailable LC [facility] Unavailable Unavailable OF [place], [facility] [place] Purpose Continuity of Care Document - 11-24-2007 through 2016 Problems Code Diagnosis DOS Provider Status E119 TYPE 2 05-06-2016 [facility], P WITHOUT COMPLICATIO NS E669 OBESITY 05-06-2016 [facility], P R000 TACHYCARDIA 05-06-2016 [facility], P M5117 INTERVERTEB 05-02-2016 [place] RAL DISC FAMILY D/O CHIROPRACT W/RADICULOP ATHY LS RGN M5137 OTH 05-02-2016 [facility] INTERVERTEB FAMILY RAL DISC CHIROPRACT DEGEN LUMBOSACRAL REGION M5387 OTHER 05-02-2016 [facility] SPECIFIED FAMILY DORSOPATHIE CHIROPRACT S LUMBOSACRAL REGION K54810 MUSCLE 05-02-2016 [facility] SPASM OF FAMILY BACK CHIROPRACT M9902 SEGMENTAL & 05-02-2016 [place] SOMATIC FAMILY DYSFUNCTION CHIROPRACT THORACIC REGION M9903 SEGMENTAL & 05-02-2016 [place] SOMATIC FAMILY DYSFUNCTION CHIROPRACT OF LUMBAR REGION M9904 SEGMENTAL & 05-02-2016 [place] SOMATIC FAMILY DYSFUNCTION CHIROPRACT OF SACRAL REGION J069 ACUTE UPPER 01-21-2016 ARNVICKEY [facility] RESPIRATORY INFECTION UNSPECIFIED M9901 SEGMENTAL & 01-11-2016 [place] SOMATIC FAMILY DYSFUNCTION CHIROPRACT CERVICAL REGION B370 CANDIDAL 12-31-2015 [facility] STOMATITIS PHYSICIANS GROUP B3781 CANDIDAL 12-31-2015 [facility] ESOPHAGITIS PHYSICIANS GROUP B9789 OT VIRAL 12-31-2015 [facility] AGENT CAUSE PHYSICIANS DISEASES GROUP CLASSIFIED ELSW J0190 ACUTE 12-19-2015 [facility] SINUSITIS UNSPECIFIED J209 ACUTE 10-31-2015 [facility] BRONCHITIS UNSPECIFIED H8109 MENIERES 08-04-2015 [facility] DISEASE UNSPECIFIED EAR N830 FOLLICULAR 06-10-2015 [facility] CYST OF PHYSICIANS OVARY GROUP R102 PELVIC AND 06-10-2015 [facility] PERINEAL PHYSICIANS PAIN GROUP Z6843 BODY MASS 06-10-2015 [facility] INDEX BMI PHYSICIANS 50-59.9 GROUP ADULT N926 IRREGULAR 05-11-2015 [facility] MENSTRUATIO PHYSICIANS N GROUP UNSPECIFIED G4700 INSOMNIA 2015 [facility]OLD [facility] UNSPECIFIED E1121 TYPE 2 05-03-2015 [facility] P W/DIABETIC NEPHROPATHY E1165 TYPE 2 05-03-2015 [facility] [place]YCEM [place] R0602 SHORTNESS 05-03-2015 [facility] Z720 TOBACCO USE 05-03-2015 [facility] P J329 CHRONIC 04-06-2015 [facility] SINUSITIS UNSPECIFIED D73796 PAIN IN 02-07-2015 [facility] LEFT ANKLE PHYSICIANS, [facility] N10319 PAIN IN 02-07-2015 [facility] ASS T13985B UNSPECIFIED 02-07-2015 [facility] SPRAIN UNS PHYSICIANS, TOES PLL INITIAL ENCOUNTER B379 CANDIDIASIS 02-05-2015 [facility] UNSPECIFIED M9985 OTHER 01-08-2015 [place] BIOMECHANIC FAMILY AL LESIONS CHIROPRACT OF [place] REGION Z09 ENC F/U 12-30-2014 [facility] EXAM AFTR PHYSICIANS CMPL TX OTH GROUP THAN IZABELLA NEOPLSM Z3009 ENCOUNTER 12-30-2014 [facility] OT GENERAL PHYSICIANS GROUP ELECTRIC DISTRIBUTION CHECKER&ADV ICE CONTRACEPT Z6842 BODY MASS 12-30-2014 [facility] INDEX BMI PHYSICIANS 45.0-49.9 GROUP ADULT E089 DIABETES 12-28-2014 [facility] MELLITUS PHYSICIANS, D/T PLLC UNDERLYING COND W/O COMP X61568 UNSPECIFIED 12-28-2014 [facility] ASTHMA PHYSICIANS, WITH ACUTE PLLC EXACERBATIO N R05 COUGH 12-28-2014 [facility] INC O021 MISSED 12-16-2014 [facility] PHYSICIANS GROUP O034 INCOMPLETE 12-16-2014 [facility] SPONT[facility] W/O COMPLICATIO N Z3A00 WEEKS OF 12-16-2014 [facility] GESTATION ANESTH OF OF THE BLUE NOT SPECIFIED Z3A12 12 WEEKS 12-16-2014 [facility] GESTATION PHYSICIANS OF GROUP O200 THREATENED 12-15-2014 [facility] INC Z3A13 13 WEEKS 12-15-2014 [place] GE[facility]ATION [facility] OF INC Z0100 ENCOUNTER 12-13-2014 [facility] EXAM EYES & GRE VISION W/O ABNORMAL FIND I10 ESSENTIAL 12-09-2014 [facility] [facility]IMARY [facility] HYPERTENSIO INC N O000 ABDOMINAL 12-09-2014 [facility] INC U85781 OTHER SPEC 12-09-2014 [facility] PHYSICIANS, RELATED PLLC COND 1ST TRIMESTER Z3480 ENC 11-25-2014 [facility] SUPERVISION [facility] OT NORMAL INC PREG UNS TRIMESTER O0941 SUPERVISION 11-21-2014 [facility] PREG PHYSICIANS W/GRAND GROUP MULTIPARITY FIRST TRI L73871 SUPERVISION 11-21-2014 [facility] ELDERLY PHYSICIANS MULTIGRAVID GROUP A FIRST TRIMESTER O2611 LOW WEIGHT 11-21-2014 [facility] GAIN IN PHYSICIANS GROUP FIRST TRIMESTER 46987 DIAB 10-10-2014 [facility] W/NEURO FOOT & MANIFESTS ANKLE CE TYPE II/UNS TYPE UNCNTRL 7295 PAIN IN 10-10-2014 [facility] SOFT FOOT & TISSUES OF ANKLE CE LIMB 7823 EDEMA 10-10-2014 [place] [address] SPRAIN AND 10-10-2014 [facility] STRAIN OF FOOT & UNSPECIFIED ANKLE CE SITE OF FOOT 4619 ACUTE 10-09-2014 O[facility] SINUSITIS, UNSPECIFIED 4659 ACUTE URIS 10-09-2014 [facility] OF UNSPECIFIED SITE 4739 UNSPECIFIED 10-09-2014 ARNVICKEY [facility] SINUSITIS 85510 MORBID 10-03-2014 [facility] V7791 SCREENING 10-03-2014 [facility] LIPOID [facility] DISORDERS [facility]ENTER 8260 CLOSED 09-24-2014 [facility] FRACTURE OF PHYSICIANS, ONE OR PLLC MORE PHALANGES OF FOOT 2113 BENIGN 09-18-2014 [facility] NEOPLASM OF PHYSICIANS COLON GROUP 86523 ABDOMINAL 09-11-2014 [facility] PAIN, LEFT PHYSICIANS LOWER GROUP QUADRANT 6259 UNSPEC 09-01-2014 [facility] SYMPTOM PHYSICIANS ASSOC GROUP W/FEMALE GENITAL ORGANS 38169 ABDOMINAL 09-01-2014 [facility] PAIN, PHYSICIANS UNSPECIFIED GROUP SITE 7202 SACROILIITI 08-28-2014 [place] S NOT FAMILY ELSEWHERE CHIROPRACT CLASSIFIED 90708 DEGEN 08-28-2014 [place] LUMBAR/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 CHIROPRACT INTERVERTEB RAL DISC 7243 SCIATICA 08-28-2014 [facility] CHIROPRACT 7393 NONALLOPATH 08-28-2014 [place] IC LESION FAMILY OF LUMBAR CHIROPRACT REGION NEC 7394 NONALLOPATH 08-28-2014 [place] IC LESION FAMILY OF SACRAL CHIROPRACT REGION NEC 17174 ABDOMINAL 08-26-2014 [facility] PAIN, PHYSICIANS GENERALIZED GROUP V7651 SPECIAL 08-26-2014 [facility] SCREENING PHYSICIANS FOR GROUP MALIGNANT NEOPLASMS COLON 09414 ABDOMINAL 08-23-2014 [facility] PAIN RIGHT PHYSICIANS, LOWER PLLC QUADRANT 4590 UNSPECIFIED 08-18-2014 [facility] HEMORRHAGE PHYSICIANS GROUP 71167 ABDOMINAL 08-18-2014 [facility] PAIN, PHYSICIANS EPIGASTRIC GROUP V7231 ROUTINE 08-13-2014 [facility] AL EXAMINATION V745 SCREENING 08-13-2014 [facility] EXAMINATION LLC FOR VENEREAL DISEASE V221 SUPERVISION 08-12-2014 [facility] OF OTHER [facility] NORMAL INC 5718 OTHER 08-10-2014 [facility]IC MEDICAL NONALCOHOLI IMAGING ASS C LIVER DISEASE 89847 ABDOMINAL 08-10-2014 [facility] PAIN OTHER PHYSICIANS, SPECIFIED PLLC SITE 57563 DIAB W/O 07-05-2014 [facility] COMP TYPE [facility] II/UNS NOT INC STATED UNCNTRL 4660 ACUTE 07-05-2014 O[facility] MADRID BRONCHITIS 1120 CANDIDIASIS 05-22-2014 [facility] OF MOUTH PHYSICIANS GROUP 5278 OTHER 05-15-2014 [facility] SPECIFIED PHYSICIANS DISEASES OF GROUP THE SALIVARY GLANDS 4610 ACUTE 05-06-2014 [facility] 88873 DIAB 03-28-2014 DR DANIEL Owens/JOSE KIRBY DPM MANIFESTS PSC TYPE II/UNS NOT UNCNTRL 87596 DIAB W/O 03-27-2014 [facility] MENTION DIABETIC COMP TYPE CENTER II/UNS TYPE UNCNTRL 07511 OBESITY, 03-27-2014 [facility]PECIFIED [facility]IC CENTER V770 SCREENING 03-27-2014 [facility] FOR THYROID [facility] DISORDER CENTER 3829 UNSPECIFIED 03-07-2014 [facility] MADR[facility] OTITIS MEDIA V7612 OTHER 03-06-2014 [place] [facility]ING [facility] 2774 DISORDERS 03-03-2014 [facility]IR[facility]IN [facility] EXCRETION 72603 CAUSALGIA 03-03-2014 [facility] 3569 UNSPEC 03-03-2014 [facility] HEREDIT&IDI [facility] OPATHIC HOSP PERIPHERAL NEUROPATHY 7242 LUMBAGO 03-03-2014 [facility] 7820 DISTURBANCE 03-03-2014 [facility] OF SKIN [facility] SENSATION [facility] 91918 OTHER 03-03-2014 [facility] ABNORMAL [facility] GLUCOSE [facility] 7906 OTHER 03-03-2014 [facility] ABNORMAL [facility] B[facility]OD [facility]OS[facility] CHEMISTRY 6101 DIFFUSE 02-19-2014 [facility] CYSTIC PHYSICIANS MASTOPATHY GROUP 90987 MASTODYNIA 02-19-2014 [facility] PHYSICIANS GROUP 3574 POLYNEUROPA 01-02-2014 [facility] [place] THY OTHER ORTHOPAEDIC DISEASES S PLC CLASSIFIED ELSW 7893 DYSMENORRHE 12-31-2013 [facility] A PHYSICIANS GROUP 69932 UNSPECIFIED 12-25-2013 [facility] VAGINITIS PHYSICIANS AND GROUP VULVOVAGINI TIS 7881 DYSURIA 12-25-2013 [facility] PHYSICIANS GROUP 5110 PLEURISY 11-28-2013 [facility] MADRID WITHOUT MENTION EFFUS/CURRE NT TB 8460 SPRAIN AND 11-03-2013 [facility] OF N EMERGENCY LUMBOSACRAL PHYS E9288 OTHER 11-03-2013 [facility] ACCIDENT N EMERGENCY PHYS 7862 COUGH 11-02-2013 [facility] IMAGING ASS 7391 NONALLOPATH 10-14-2013 BAKARI WEBB LESION OF CERVICAL REGION NEC 7392 NONALLOPATH 10-14-2013 BAK[facility]I RANDY IC LESION OF THORACIC REGION NEC 3559 MONONEURITI 09-19-2013 [facility] MADRID S OF UNSPECIFIED SITE 5789 UNSPECIFIED 09-10-2013 JEANINE ANNA HEMORRHAGE OF GASTROINTES TINAL TRACT 6202 OTHER AND 09-10-2013 [facility]ICAL OVARIAN IMAGING ASS CYST [...] 05-01-2013 [facility] OF EYES GRE AND VISION 53087 OTHER 04-23-2013 [facility] MADRID MALAISE AND FATIGUE V0481 NEED 03-18-2013 [facility] MADRID PROPHYLACTI C VACCINATION &INOCULATIO N FLU 9248 CONTUSION 02-05-2013 O[facility] MADRID OF MULTIPLE SITES NEC 11203 SWELLING OF 02-04-2013 [facility] LIMB EDIS 89283 SPRAIN AND 02-04-2013 [facility] STRAIN OF UNSPECIFIED SITE OF WRIST 97254 CONTUSION 02-04-2013 [facility] LAZ OF HAND E9179 OTHER 02-04-2013 [facility] STRIKING EDIS AGAINST W/WO SUBSEQUENT FALL 5758 OTHER 01-16-2013 [facility] AN[facility] SPECIFIED DISORDER OF GALLBLADDER 22599 ABDOMINAL 01-16-2013 [facility] ANT PAIN RIGHT UPPER QUADRANT 11962 UNS 11-29-2012 [facility] MADRID GASTRITIS&G ASTRODUODIT IS W/O MENTION HEMORR 5759 UNSPECIFIED 11-29-2012 [facility] MADRID DISORDER OF GALLBLADDER 632 MISSED 08-31-2012 LARA DANIKA 00755 NAUSEA 08-31-2012 GUILLEN ANTONINO ALONE 74686 UNSPEC 08-21-2012 [facility] HEMORRHAGE [facility] EARLY INC ANTEPARTUM 30483 OTH ABN 08-19-2012 [facility] SHAPE/POSIT EDIS ION GRAVID UTERUS ANTEPARTUM 7871 HEARTBURN 04-18-2012 [facility] ANT 48945 ASTHMA, 03-18-2012 [facility] UNSPECIFIED MEM [facility]OS[facility] , INC UNSPECIFIED STATUS 53455 ABDOMINAL 03-18-2012 [facility] PAIN, LEFT MEM H[facility] UPPER INC QUADRANT 9195 OT 01-05-2012 [facility] MX&UNSPEC SITES INSECT BITE NONVENOMOUS INF 50959 DIARRHEA 12-21-2011 [facility] ANT 7213 LUMBOSACRAL 12-14-2011 [facility] SLEEP AND SPONDYLOSIS [facility] WITHOUT MYELOPATHY 7231 CERVICALGIA 12-14-2011 [facility] SLEEP AND REHA 8472 LUMBAR 12-14-2011 [facility] SPRAIN AND H SLEEP AND STRAIN REHA 7831 ABNORMAL 11-02-2011 [facility] GARNICA WEIGHT GAIN V2509 OT GENERAL 10-04-2011 [facility] DANIKA CNSL&ADVICE CONTRACEPT MANAGEMENT V2543 SURVEILLANC 09-06-2011 [facility] GARNICA E PREV PRSC IMPL SUBDERMAL CONTRACEPT 84771 PAIN IN 08-09-2011 WHANG LANI JOINT, ANKLE AND FOOT 7234 BRACHIAL 07-08-2011 JONES TRA NEURITIS OR RADICULITIS NOS 7294 UNSPECIFIED 07-08-2011 JONES TRA FASCIITIS 75699 UNSPECIFIED 04-13-2011 [facility] ANT ESOPHAGITIS 23699 REFLUX 04-13-2011 PATHOLOGY & ESOPHAGITIS CYTOLOGY LAB 18846 ATROPHIC 04-13-2011 PATHOLOGY & GASTRITIS CYTOLOGY WITHOUT LAB MENTION OF HEMORRHAGE 65031 OTHER SPEC 04-13-2011 [facility] ANT GASTRITIS WITHOUT MENTION HEMORRHAGE 5559 REGIONAL 04-13-2011 A[facility]A ANT ENTERITIS OF UNSPECIFIED SITE 68167 ULCERATION 04-13-2011 [facility] INTESTINE INC 29649 OTHER 04-13-2011 PATHOLOGY & SPECIFIED CYTOLOGY DISORDER OF LAB INTESTINES 5781 BLOOD IN 04-13-2011 [facility] 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[facility] ANOMALIES MEDICAL OF SPLEEN IMAGING ASS 5693 HEMORRHAGE 03-30-2011 [facility] ANT OF RECTUM AND ANUS 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 55127 HEMATURIA 02-28-2011 [facility] UNSPECIFIED [facility] HOS[facility] INC 03768 GROSS 02-22-2011 [facility] P 5060 BRONCHITIS& 12-24-2010 LIANG MARGOTH PNEUMONITIS DUE TO FUMES&VAPOR S 5082 RESPIRATORY 12-24-2010 [facility] CONDITIONS MEDICAL DUE TO IMAGING ASS SMOKE INHALATION 28000 SHORTNESS 12-24-2010 LIANG MARGOTH OF BREATH 00156 OTHER 12-24-2010 [facility] NONSPECIFIC MEDICAL ABNORMAL IMAGING ASS FINDING OF LUNG FIELD 79969 BLISTERS 12-24-2010 [facility] W/EPID [facility] LOSS-BURN-S INC SHRAVAN DIGIT NOT THUMB 84329 BLISTERS 12-24-2010 [facility] WITH [facility]OS[facility] EPIDERMAL [...] JIMMIE VISION 7226 DEGENERATIO 08-06-2010 NEURODIAGNO N [facility] INTERVERTEB RAL DISC SITE UNSPEC 56585 LUMP OR 07-05-2010 [facility] MASS IN MEDICAL BREAST IMAGING ASS 6210 [...] IMPLANTABLE [place] [address] CHEST PAIN 05-23-2009 [facility] UNSPECIFIED MEDICAL IMAGING ASSOCIATES 05577 PAINFUL 05-23-2009 [facility] 72057 SPRAIN AND 05-23-2009 [facility] STRAIN OF MEM HOS[facility] CHONDROSTER INC NAL 8489 UNSPECIFIED 05-23-2009 [facility] SITE OF EMERGENCY SPRAIN AND SERVICES STRAIN ASSOCIATES V251 ENCOUNTER 08-05-2008 [facility] INSERT/[facility] IU CLINIC OF CONTRACEPTI [place] VE DEVICE [facility] 16858 NON-HEALING 07-29-2008 [facility] SURGICAL HEALTH WOUND NEC CLINIC OF HÉCTOR [facility] 84909 CHRONIC 07-17-2008 [facility] FATIGUE [facility] SYNDROME INC V242 ROUTINE 07-17-2008 [facility] FOLLOW-UP CLINIC OF HÉCTOR PLLC 605 REDUNDANT 06-18-2008 [facility] CARE PREPUCE AND ASSOCIATES PHIMOSIS 92631 ABNORMAL 06-18-2008 [facility] MATERNAL HEALTH GLUCOSE CLINIC OF [place]OL[place]ANCE [place] ANTEPARTUM PLLC 26741 HIGH 06-18-2008 [facility] AT ANESTH OF TERM, THE DELIVERED MANOHAR 46338 FETOPELVIC 06-18-2008 [facility] ON, CLINIC OF DELIVERED HÉCTOR [facility] V270 OUTCOME OF 06-18-2008 [facility] DELIVERY HEALTH SINGLE CLINIC OF LIVEBORN CY[place]NY [facility] V3001 SINGLE 06-18-2008 [facility] [place] [address] ABNORMAL 06-17-2008 [facility] MATERNAL [facility] GLUCOSE INC TOLERANCE W/DELIVERY 31634 OBESITY 06-17-2008 [facility] COMP PG MEM HOSP CHILDBIRTH/ INC THE PP DELIVERED 73396 EXCESS 06-13-2008 [facility] CLINIC OF AFFECT MGMT HÉCTOR MOTH PLLC ANTPRTM 60989 TRANSIENT 06-03-2008 [facility] HYPERTENSIO MEM HOSP N OF INC ANTEPARTUM 77425 POLYHYDRAMN 06-03-2008 [facility] ANTEPARTUM CLINIC OF COMPLICATIO HÉCTOR N [facility] 26576 THREATENED 05-29-2008 [facility] PREMATURE [facility] LABOR INC ANTEPARTUM 97655 OTHER 05-29-2008 KING CARIAS MD LABOR, ANTEPARTUM V220 SUPERVISION 05-20-2008 [facility] OF NORMAL PHYSICIANS FIRST LAB 09491 ABN MAT 04-30-2008 GLUCOSE DIAGNOSTICC TOLERANCE ENTER COMPL PG CB/PP UNS EOC 95201 OBES COMP 04-30-2008 [facility] PG [facility] /THE HOSP PP ANTEPARTUM COND/COMP 95740 MATERNAL 04-03-2008 DIAB[facility]ES DIAGNOSTICC MELLITUS ENTER ANTEPARTUM 490 BRONCHITIS 04-02-2008 ARIADNA STONE JR J V SPECIFIED ACUTE OR CHRONIC 37346 OTHER 03-29-2008 ANGELA SPECIFED NATIONAL COMPLICATIO Vive Nano N ANTEPARTUM V222 03-29-2008 [facility] STATE, [facility] INCIDENTAL INC 79351 LATE 03-17-2008 [facility] VOMITING OF MEM HOSP INC ANTEPARTUM 8483 SPRAIN AND 02-23-2008 ANGELA STRAIN OF [employer] 67006 OTH 02-22-2008 KNOWN/SUSPE DIAGNOSTICC CTED ENTER ABNORMALITY -NEC-APC/C 4720 CHRONIC 02-18-2008 ARIADNA RHINITIS , J V 7840 HEADACHE 02-18-2008 [place] [address] OTH SPEC 01-24-2008 COMP DIAGNOSTICC ENTER UNSPEC EPISODE CARE 76877 POOR 01-24-2008 [facility] MGMT QUAKER [facility] HOSP ANTPRTM COND/COMP 23845 THREATENED 11-30-2007 [facility] , MEDICAL ANTEPARTUM [facility] 5990 URINARY 11-24-2007 [facility] TRACT [facility] INFECTION INC SITE NOT SPECIFIED 74877 INFECTIONS 11-24-2007 [facility] GENITOURINA INC RY TRACT ANTEPARTUM Medications [...] 20 3- 4- 00 06 TO ve NM 76 20 20 08 WN N 00 [...] ST 00 08 04 24 30 00 TN Ac ER 40 -1 -0 .0 00 [...] 00 3- 4- 00 06 TO ve TN 51 20 20 07 WN IL 40 [...] 20 2- 7- 00 06 TO ve NM 76 20 20 08 WN N 00 [...] 00 5- 7- 00 06 TO ve TN 51 20 20 07 WN IL 40 [...] 20 7- 0- 00 06 TO ve NM 76 20 20 07 WN N 00 [...] 00 8- 0- 00 06 TO ve TN 51 20 20 07 WN IL 40 [...] 20 4- 3- 00 06 TO ve NM 76 20 20 07 WN N 00 [...] 3- 6- 00 MA 88 LD ve NM 05 20 20 RT 9 N 06 [...] 3- 3- 00 MA 88 LD ve NM 05 20 20 RT 9 N 06 [...] 0 14 7 CL 23 CH Ac TN 14 -2 -2 .0 IN ES ti OF 32 5- 5- 00 IC 41 TN ve LO 03 20 20 UT XA 70 11 11 PH CI 1 AR NM N MA CH HC CY AE L L 50 LL 0 C MG TA B TN 00 05 05 0 25 5 CL 23 CH Ac ED 05 -2 -2 .0 IN ES ti NI 40 5- 5- 00 IC 42 TN ve SO 01 20 20 UT NE 72 11 11 PH 5 AR NM 10 MA CH CY AE MG L [...] 9- 0- 00 MA 65 MA ve TN 59 20 20 RT 2 N ED [...] AM 00 03 03 1 30 10 IA 71 AR Ac OX 78 -1 -1 .0 L- 10 NO ti IC 12 4- 4- 00 MA 88 LD ve IL 61 20 20 RT 5 LI 33 11 11 RI N 1 PH CH 50 AR AR 0 MA D MG CY W # CA PS 10 UL 05 E 91 00 02 02 0 16 5 IA 44 RU Ac 40 -2 -2 .0 [...] 91 00 06 06 00 14 2 IA 44 ROSENBAUM Ac 40 -0 -1 .0 [...] 00 60 30 CL 19 CL Ac TN 74 -0 -1 .0 IN 52 AR [...] 8- 6- 00 MA 21 EY ve TN 59 20 20 RT 8 ED 31 09 09 NM NI 5 PH CH SO AR AE [...] 20 RT 7 YC 66 09 09 NM IN 8 PH CH AR AE 25 [...] 3- 5- 00 MA 39 E ve TN 59 20 20 RT 1 RO ED [...] 20 RT 8 YC 66 08 09 NM IN 8 PH CH AR AE 25 MA L 0 CY S MG #5 TA 91 BL ET ME 00 12 01 00 21 6 WA 69 GA Ac TH 60 -1 -0 .0 L- 99 IN ti YL 34 4- 1- 00 MA 82 EY ve TN 59 20 20 RT 7 ED 31 08 09 NM NI 5 PH CH SO AR AE LO MA L NE CY S 4 #5 MG 91 DO SE PK 00 12 01 00 18 7 WA 88 GA Ac 03 -1 -0 0. L- 13 IN ti 18 4- 1- 00 MA 21 EY ve 68 20 20 0 RT 8 51 08 09 NM 2 PH CH AR AE MA L [...] Procedure DOS Code Location Performer Comment HEMOGLO[facility] 63096 MATEO COBIAN N 7 DIABETIC GLYCOSYLA [facility], ASUNCION A1C P CHIROPRAC 34977 JAQUELIN BAKARI TIC 7 N FAMILY MANIPULAT CHIROPRAC ROSS TX T SPINAL 3-4 REGIONS CHIROPRAC 06611 JAQUELIN LONG TIC 7 N FAMILY MANIPULAT CHIROPRAC ROSS TX T SPINAL 3-4 REGIONS CHIROPRAC 96610 LEODANRoman BAKARI TIC 7 N FAMILY MANIPULAT CHIROPRAC ROSS TX T SPINAL 3-4 REGIONS CHIROPRAC 03145 JAQUELIN BAKARI TIC 7 N FAMILY MANIPULAT CHIROPRAC ROSS TX T SPINAL 3-4 REGIONS CHIROPRAC 43418 LEODANRoman BAKARI TIC 7 N FAMILY MANIPULAT CHIROPRAC ROSS TX T SPINAL 3-4 REGIONS CHIROPRAC 55310 LEODANRoman BAKARI TIC 7 N FAMILY MANIPULAT CHIROPRAC ROSS TX T SPINAL 3-4 REGIONS HEMOGLOBI 39960 MATEO COBIAN N 6 DIABETIC GLYCOSYLA [facility], ASUNCION A1C P BLOOD 05337 [facility] COUNT 6 [facility] COMPLETE INC INC AUTO&AUTO DIFRNTL WBC LIPID 11568 [facility] PANEL 6 [facility] INC INC COLLECTIO 30554 [facility] N VENOUS 6 [facility] BLOOD INC INC VENIPUNCT URE COMPREHEN 04798 [facility] SIVE 6 [facility] METABOLIC INC INC PANEL CHIROPRAC 75214 JAQUELIN VILLEGAS TIC 6 N FAMILY RANDY MANIPULAT CHIROPRAC ROSS TX T SPINAL 3-4 REGIONS CHIROPRAC 65006 JAQUELIN VILLEGAS TIC 6 N FAMILY RANDY MANIPULAT CHIROPRAC ROSS TX T SPINAL 3-4 REGIONS HEMOGLOBI 86634 MATEO COBIAN N 6 DIABETIC GL[facility]COSYLA [facility], ASUNCION A1C P CHIROPRAC 40092 JAQUELIN VILLEGAS TIC 6 N FAMILY RANDY MANIPULAT CHIROPRAC ROSS TX T SPINAL 3-4 REGIONS CHIROPRAC 55667 JAQUELIN VILLEGAS TIC 6 N FAMILY RANDY MANIPULAT CHIROPRAC ROSS TX T SPINAL 3-4 REGIONS CHIROPRAC 05539 JAQUELIN LOGN TIC 6 N FAMILY DARRON MANIPULAT CHIROPRAC ROSS TX T SPINAL 3-4 REGIONS CHIROPRAC 47774 JAQUELIN VILLEGAS TIC 6 N FAMILY RANDY MANIPULAT CHIROPRAC RSOS TX T SPINAL 3-4 REGIONS CHIROPRAC 81726 JAQUELIN LONG TIC 6 N FAMILY DARRON MANIPULAT CHIROPRAC ROSS TX T SPINAL 3-4 REGIONS CHIROPRAC 32856 JAQUELIN LONG TIC 6 N FAMILY DARRON MANIPULAT CHIROPRAC ROSS TX T SPINAL 3-4 REGIONS LIPID 53513 HYACINTH [facility] PANEL 6 [facility] INC INC COMPREHEN 40164 [facility] [place] [address] [facility] THYROID 6 [facility] STIMULATI INC INC NG HORMONE TSH COLLECTIO 39611 [facility] N VENOUS 6 [facility] BLOOD INC INC VENIPUNCT URE CHIROPRAC 85222 JAQUELIN VILLEGAS TIC 6 N FAMILY RANDY MANIPULAT CHIROPRAC ROSS TX T SPINAL 3-4 REGIONS CHIROPRAC 40750 JAQUELIN VILLEGAS TIC 6 N FAMILY RANDY MANIPULAT CHIROPRAC ROSS TX T SPINAL 3-4 REGIONS HEMOGLOBI 21589 [place] AMJAD SOB N 6 DIABETIC GLYCOSYLA [place], ASUNCION A1C P CHIROPRAC 92559 JAQUELIN VILLEGAS TIC 6 N FAMILY RANDY MANIPULAT CHIROPRAC ROSS TX T SPINAL 3-4 REGIONS CHIROPRAC 25768 JAQUELIN VILLEGAS TIC 6 N FAMILY RANDY MANIPULAT CHIROPRAC ROSS TX T SPINAL 3-4 REGIONS CHIROPRAC 27707 JAQUELIN VILLEGAS TIC 6 N FAMILY RANDY MANIPULAT CHIROPRAC ROSS TX T SPINAL 3-4 REGIONS CHIROPRAC 36481 JAQUELIN LONG TIC 6 N FAMILY DARRON MANIPULAT CHIROPRAC ROSS TX T SPINAL 3-4 REGIONS HEMOGLOBI 53788 [place] AMJAD SOB N 6 DIABETIC GLYCOSYLA [place], ASUNCION A1C P CHIROPRAC 02606 JAQUELIN VILLEGAS TIC 6 N FAMILY RANDY MANIPULAT CHIROPRAC ROSS TX T SPINAL 3-4 REGIONS CHIROPRAC 13142 JAQUELIN VILLEGAS TIC 6 N FAMILY RANDY MANIPULAT CHIROPRAC ROSS TX T SPINAL 3-4 REGIONS CHIROPRAC 37952 JAQUELIN VILLEGAS TIC 6 N FAMILY RANDY MANIPULAT CHIROPRAC ROSS TX T SPINAL 3-4 REGIONS CHIROPRAC 52918 JAQUELIN VILLEGAS TIC 6 N FAMILY RANDY MANIPULAT CHIROPRAC ROSS [place] SPINAL 3-[place] [address] [facility] TRANSVAGI 6 PHYSICIAN DANIKA NAL S GROUP CHIROPRAC 28010 JAQUELIN LONG TIC 6 N FAMILY DARRON MANIPULAT CHIROPRAC ROSS TX T SPINAL 3-4 REGIONS CHIROPRAC 54504 JAQUELIN VILLEGAS TIC 6 N FAMILY RANDY MANIPULAT CHIROPRAC ROSS TX T SPINAL 3-4 REGIONS CHIROPRAC 62507 JAQUELIN LONG TIC 6 N FAMILY DARRON MANIPULAT CHIROPRAC ROSS TX T SPINAL 3-4 REGIONS CHIROPRAC 76181 JAQUELIN VILLEGAS TIC 6 N FAMILY RANDY MANIPULAT CHIROPRAC ROSS TX T SPINAL 3-4 REGIONS CHIROPRAC 46466 JAQUELIN VILLEGAS TIC 6 N FAMILY RANDY MANIPULAT CHIROPRAC ROSS [place] T SPINAL 3-[place] [address] [facility] MARCO TRANSVAGI 6 PHYSICIAN DANIKA NAL S GROUP RADIOLOGI 25888 [place] GING[facility] C EXAM 6 MEDICAL EDIS CHEST 2 IMAGING VIEWS ASS FRONTAL&L ATERAL ECG 31648 HYACINTH MARTINEZ ROUTINE 6 [facility] W/LEAST P 12 LDS I&R ONLY URNLS DIP 34001 [facility] MARCO 6 PHYSICIAN DANIKA STICK/TAB S GROUP LET RGNT NON-AUTO W/O MICRSCP HEMOGLOBI 55411 [place] AMJAD SOB N 6 DIABETIC GLYCOSYLA [place], ASUNCION A1C P SURGICAL L3260 ADVANCED ADVANCED BOOT/SHOE 5 TECHNOLOG TECHNOLOG EACH [employer] IES INC RADEX 98860 [place] BEINE FOOT 5 MEDICAL ROCIO COMPLETE IMAGING MINIMUM 3 ASS VIEWS CHIROPRA 07675 JAQUELIN VILLEGAS TIC 5 N FAMILY RANDY MANIPULAT CHIROPRAC ROSS TX T SPINAL 1-2 REGIONS HEMOGLOBI 94579 [place] AMJAD SOB N 5 DIABETIC GLYCOSYLA [place], [facility] A1C P GLUC BLD 69277 [facility]IN[facility] GLUC MNTR 5 [facility] DEV INC INC CLEARED FDA SPEC HOME USE ECG 05115 HYACINTH JAVIER JR ROUTINE 5 [facility] W/LEAST P 12 LDS I&R ONLY INJECTION J2405 [facility] 5 [facility] ONDANSETR INC INC ON HCL PER 1 MG TX MISSED 71438 [facility] MARCO 5 PHYSICIAN DANIKA FIRST S GROUP TRIMESTER SURGICAL ECG 16878 HYACIN[facility] ROUTINE 5 [facility] ECG INC INC W/LEAST 12 LDS TRCG ONLY W/O [place] [address] [facility] [place] SURG 5 [facility] PATHOLOGY GROSS&ANNA ROSCOPIC EXAM ANESTHESI 48271 [facility] FERRO MAKENZIE A 5 ANESTH INCOMPLET OF THE E/[place] [address] [facility] INFUSION 5 [facility] THERAPY/P INC INC ROPHYLAXI S /DX 1ST TO 1 HR THERAPEUT 71318 HYACINTH HYACINTH IC 5 [facility] INJECTION [place] [address] [facility] INFUSION 5 [facility] THERAPY INC INC PROPHYLAX IS/DX EA HOUR US PREG 59691 [facility] [place] UTERUS 5 MEDICAL EDIS REAL TIME IMAGING W/IMAGE ASS DCMTN TRANSVAG DETERMINA 08026 [facility] 5 GRE GRE REFRACTIV E STATE OPHTH 63167 [facility] 5 GRE GRE XM&EVAL COMPRHNSV ESTAB PT 1/> COMPREHEN 69445 [facility] SIVE 5 [facility] METABOLIC INC INC PANEL BLOOD 56077 [facility] COUNT 5 [facility] COMPLETE INC INC AUTO&AUTO DIFRNTL WBC URNLS DIP 85885 [facility] 5 [facility] STICK/TAB INC INC LET REAGENT AUTO MICROSCOP Y OBSTETRIC 65103 [facility]IN[facility] PANEL 5 [facility] INC INC INF AGT G0432 HYACINTH [facility] AB DETECT 5 [facility] EIA TECH INC INC HIV-1&/HI V-2 SCR COLLECTIO 28916 [facility]IN[facility] N VENOUS 5 [facility] BLOOD INC INC VENIPUNCT URE US PREG 52115 [facility] LARA UTERUS 5 PHYSICIAN DANIKA REAL TIME S GROUP W/IMAGE DCMTN TRANSVAG IADNA 47170 [facility] NEISSERIA 5 [facility] INC INC GONORRHOE AE AMPLIFIED PROBE TQ IADNA 61350 [facility] CHLAMYDIA 5 [facility] INC INC TRACHOMAT IS AMPLIFIED PROBE TQ RADEX 35018 MATEO PEDROZA FOOT 5 FOOT & N SHABNAM COMPLETE ANKLE CE MINIMUM 3 VIEWS HEMOGLOBI 24651 MATEO ANTHONYTSINGE N 5 DIABETIC R TAR GLYCOSYLA CENTER ASUNCION A1C RADEX 17574 [facility] [place] JENSEN FOOT 5 MEDICAL ROCIO COMPLETE IMAGING MINIMUM 3 [place] [address] [facility], PICKLESIM SURG 5 LLC ER JR SUMIT PATHOLOGY GROSS&ANNA ROSCOPIC EXAM COLSC FLX 80248 [facility] MIKAYLA 5 PHYSICIAN CAM W/REMOVAL S GROUP LESION BY HOT BX FORCEPS CHIROPRAC 55805 JAQUELIN VILLEGAS TIC 5 N FAMILY RANDY MANIPULAT CHIROPRAC ROSS TX T SPINAL 1-[address] [place] [address] [facility] & 5 MEDICAL ROCIO PELVIS IMAGING W/O ASS CONTRAST MATERIAL URNLS DIP 22262 [facility] LYNETTE 5 PHYSICIAN MARGOTH STICK/TAB S GROUP LET RGNT NON-AUTO W/O MICRSCP CYTP C/V 73199 [facility] AUTO THIN 5 LLC ER JR SUMIT LYR PREPJ SCR MNL RESCR PHYS IADNA 90672 [facility] NEISSERIA 5 LLC ER JR SUMIT GONORRHOE AE AMPLIFIED PROBE TQ IADNA 94967 [facility], [facility] CHLAMYDIA 5 [facility] ER JR SUMIT TRACHOMAT IS AMPLIFIED PROBE TQ COLLECTIO 03092 [facility] N VENOUS 5 [facility] BLOOD INC INC VENIPUNCT URE GONADOTRO 12053 [facility]IN[facility] PIN 5 [facility] [place] [address] [place] [facility] & 5 MEDICAL ROCIO PELVIS IMAGING W/O ASS CONTRAST MATERIAL CHIROPRAC 70227 JAQUELIN VILLEGAS TIC 5 N FAMILY RANDY MANIPULAT CHIROPRAC ROSS TX T SPINAL 1-2 REGIONS LIPID 31807 [facility] PANEL 5 [facility] INC INC COLLECTIO 18179 [facility] N VENOUS 5 [facility] BLOOD INC INC VENIPUNCT URE HEMOGLOBI 37295 M[facility] FRANCOJAD SOB N 5 DIABETIC GL[facility]OS[facility]LA CENTER, ASUNCION A1C P FOR DIAB A5512 [facility] CO[facility]AN SOB ONLY MX 5 DIABETIC DNSITY CENTER, INSRT DIR P FORMD PRFAB EA DIAB ONLY A5500 [facility] SOB FIT CSTM 5 DIABETIC PREP&SPL CENTER, SHOE MX P DNSITY INSRT INJECTION J1040 [facility] JEANINE 5 PHYSICIAN ANNA METHYLPRE S GROUP DNISOLONE ACETATE 80 MG THERAPEUT 35825 [facility] JEANINE IC 5 PHYSICIAN ANNA PROPHYLAC S GROUP TIC/DX INJECTION SUBQ/IM COLLECTIO 96639 [facility] SOB N VENOUS 5 DIABETIC BLOOD CENTER VENIPUNCT URE THERAPEUT 82012 JAQUELIN VILLEGAS IC PX 1/> 5 N FAMILY RANDY AREAS CHIROPRAC EACH 15 T MIN EXERCISES CHIROPRAC 06095 JAQUELIN VILLEGAS TIC 5 N FAMILY RANDY MANIPULAT CHIROPRAC ROSS TX T SPINAL 1-2 REGIONS CHIROPRAC 39746 JAQUELIN VILLEGAS TIC 5 N FAMILY RANDY MANIPULAT CHIROPRAC ROSS TX T SPINAL 1-2 REGIONS APPL 16734 JAQUELIN VILLEGAS MODALITY 5 N FAMILY RANDY 1/> AREAS CHIROPRAC TRACTION T MECHANICA L CHIROPRAC 29776 JAQUELIN VILLEGAS TIC 5 N FAMILY RANDY MANIPULAT CHIROPRAC ROSS TX T SPINAL 1-2 REGIONS THERAPEUT 72627 JAQUELIN VILLEGAS IC PX 1/> 5 N FAMILY RANDY AREAS CHIROPRAC EACH 15 T MIN EXERCISES [facility]- [address]284 HY[facility]IN[facility] AIDED 5 [facility] DETECTION INC INC SCREENING MAMMOGRAP HY SCREENING G0202 [facility] 5 [facility] MAMMOGRAP INC INC HY CHIRAG INCL CAD WHEN PERFORMD THERAPEUT 55064 JAQUELIN VILLEGAS IC PX 1/> 5 N FAMILY RANDY AREAS CHIROPRAC EACH 15 T MIN EXERCISES CHIROPRAC 02688 JAQUELIN VILLEGAS TIC 5 N FAMILY RANDY MANIPULAT CHIROPRAC ROSS TX T SPINAL 1-2 REGIONS APPL 56402 JAQUELIN VILLEGAS MODALITY 5 N FAMILY RANDY 1/> AREAS CHIROPRAC ELEC T STIMJ EA 15 MIN HEMOGLOBI 05690 [facility]AL N 5 QUAKER QU[facility]ER [facility]OS[facility] HOSP ASUNCION A1C COMPREHEN 88656 [facility] C[facility]TRAL SIVE 5 QUAKER [facility] HOSP PANEL THERAPEUT 72185 JAQUELIN VILLEGAS IC PX 1/> 5 N FAMILY RANDY AREAS CHIROPRAC EACH 15 T MIN EXERCISES CHIROPRAC 07969 JAQUELIN VILLEGAS TIC 5 N FAMILY RANDY MANIPULAT CHIROPRAC ROSS TX T SPINAL 1-2 [place] [address] [facility] MARCO TRANSVAGI 4 PHYSICIAN DANIKA [facility] S GROUP NEEDLE 56554 QUAKER [facility] EMG EA 4 NEUROLOGY AYAD EXTREMTY W/PARASPI CONSULTAN NL AREA T COMPLETE NERVE 07952 QUAKER [facility] CONDUCTIO 4 NEUROLOGY AYAD N STUDIES 01-01 CONSULTAN STUDIES T SMR PRIM 24230 [facility] MARCO SRC WET 4 PHYSICIAN DANIKA [facility] S GROUP NFCT AGT MRI 37474 CENTRAL JONES TRA SPINAL 4 [place] CANAL ORTHOPAED LUMBAR ICS PLC W/O CONTRAST MATERIAL RADIOLOGI 49195 [facility] C EXAM 4 MEDICAL ROCIO CHEST 2 IMAGING VIEWS ASS FRONTAL&L ATERAL RADEX 23158 JONES TRA JONES TRA SPINE 4 LUMBOSACR AL 2/3 VIEWS THERAPEUT 43968 BAKARI VILLEGAS IC PX 1/> 4 RANDY RANDY AREAS EACH 15 MIN EXERCISES CHIROPRAC 39852 BAKARI VILLEGAS TIC 4 RANDY RANDY MANIPULAT ROSS TX SPINAL 3-4 REGIONS CHIROPRAC 42880 BAKARI BAKARI TIC 4 RANDY RANDY MANIPULAT ROSS TX SPINAL 3-4 REGIONS THERAPEUT 61620 BAKARI BAKARI IC PX 1/> 4 RANDY RANDY AREAS EACH 15 MIN EXERCISES APPL 96249 BAKARI BAKARI MODALITY 4 RANDY RANDY 1/> AREAS TRACTION MECHANICA L THERAPEUT 39141 BAKARI BAKARI IC PX 1/> 4 RANDY RANDY AREAS EACH 15 MIN EXERCISES CHIROPRAC 15567 BAKARI BAKARI TIC 4 RANDY RANDY MANIPULAT ROSS TX SPINAL 3-4 REGIONS CHIROPRAC 75717 BAKARI VILLEGAS TIC 4 RANDY RANDY MANIPULAT ROSS TX SPINAL 3-4 REGIONS THERAPEUT 49758 BAKARI BAKARI IC PX 1/> 4 RANDY RANDY AREAS EACH 15 MIN EXERCISES RADEX 85554 [place] RICHARDSO FOOT 4 FOOT & N SHABNAM COMPLETE ANKLE CE MINIMUM 3 VIEWS THERAPEUT 77085 BAKARI BAKARI IC PX 1/> 4 RANDY RANDY AREAS EACH 15 MIN EXERCISES CHIROPRAC 76207 BAKARI BAKARI TIC 4 RANDY RANDY MANIPULAT ROSS TX SPINAL 3-4 REGIONS CHIROPRAC 78457 BAKARI BAKARI TIC 4 RANDY RANDY MANIPULAT ROSS TX SPINAL 3-4 REGIONS THERAPEUT 66647 BAKARI BAKARI IC PX 1/> 4 RANDY RANDY AREAS EACH 15 MIN EXERCISES THERAPEUT 51398 BAKARI BAKARI IC PX 1/> 4 RANDY RANDY AREAS EACH 15 MIN EXERCISES CHIROPRAC 59526 BAKARI BAKARI TIC 4 RANDY RANDY MANIPULAT ROS[place] SPINAL 3-[address] [place] [address] [facility] ABDOMEN & 4 MEDICAL EDIS PELVIS IMAGING W/O ASS CONTRAST MATERIAL THERAPEUT 79759 BAKARI BAKARI IC PX 1/> 4 RANDY RANDY AREAS EACH 15 MIN EXERCISES CHIROPRAC 99791 BAKARI BAKARI TIC 4 RANDY RANDY MANIPULAT ROSS TX SPINAL 3-4 REGIONS CHIROPRAC 39210 BAKARI BAKARI TIC 4 RANDY RANDY MANIPULAT ROSS TX SPINAL 3-4 REGIONS THERAPEUT 98966 BAKARI BAKARI IC PX 1/> 4 RANDY RANDY AREAS EACH 15 MIN EXERCISES THERAPEUT 81334 BAKARI BAKARI IC PX 1/> 4 RANDY RANDY AREAS EACH 15 MIN EXERCISES CHIROPRAC 35781 BAKARI BAKARI TIC 4 RANDY RANDY MANIPULAT ROSS TX SPINAL 3-4 REGIONS CHIROPRAC 67410 BAKARI BAKARI TIC 4 RANDY RANDY MANIPULAT ROSS TX SPINAL 3-4 REGIONS THERAPEUT 67236 BAKARI BAKARI IC PX 1/> 4 RANDY RANDY AREAS EACH 15 MIN EXERCISES THERAPEUT 48024 BAKARI BAKARI IC PX 1/> 4 RANDY RANDY AREAS EACH 15 MIN EXERCISES CHIROPRAC 26692 BAKARI BAKARI TIC 4 RANDY RANDY MANIPULAT ROSS TX SPINAL 3-4 REGIONS CHIROPRAC 58734 BAKARI BAKARI TIC 4 RANDY RANDY MANIPULAT ROSS TX SPINAL 3-4 REGIONS THERAPEUT 95690 BAKARI BAKARI IC PX 1/> 4 RANDY RANDY AREAS EACH 15 MIN EXERCISES THERAPEUT 84303 BAKARI BAKARI IC PX 1/> 4 RANDY RANDY AREAS EACH 15 MIN EXERCISES CHIROPRAC 08530 BAKARI BAKARI TIC 4 RANDY RANDY MANIPULAT ROSS TX SPINAL 3-4 REGIONS CHIROPRAC 98033 BAKARI BAKARI TIC 4 RANDY RANDY MANIPULAT ROSS TX SPINAL 3-4 REGIONS THERAPEUT 70687 BAKARI BAKARI IC PX 1/> 4 RANDY RANDY AREAS EACH 15 MIN EXERCISES 64849 [facility] TRANSVAGI 4 DANIKA DANIKA NAL THERAPEUT 72850 BAKARI BAKARI IC PX 1/> 4 RANDY RANDY AREAS EACH 15 MIN EXERCISES CHIROPRA 02786 BAKARI BAKARI TIC 4 RANDY RANDY MANIPULAT ROSS TX SPINAL 3-4 REGIONS CHIROPRAC 88427 BAKARI BAKARI TIC 4 RANDY RANDY MANIPULAT ROSS TX SPINAL 3-4 REGIONS THERAPEUT 34010 BAKARI BAKARI IC PX 1/> 4 RANDY RANDY AREAS EACH 15 MIN EXERCISES THERAPEUT 49945 BAKARI BAKARI IC PX 1/> 4 RANDY RANDY AREAS EACH 15 MIN EXERCISES APPL 21472 BAKARI BAKARI MODALITY 4 RANDY RANDY 1/> AREAS TRACTION MECHANICA L CHIROPRAC 55911 BAKARI BAKARI TIC 4 RANDY RANDY MANIPULAT ROSS TX SPINAL 3-4 REGIONS CHIROPRAC 49692 BAKARI BAKARI TIC 4 RANDY RANDY MANIPULAT ROSS TX SPINAL 3-4 REGIONS URINE 84398 [facility] COSTAE 4 DANIKA DANIKA TEST VISUAL COLOR CMPRSN METHS APPL 06349 BAKARI BAKARI MODALITY 4 RANDY RANDY 1/> AREAS TRACTION MECHANICA L THERAPEUT 74940 BAKARI BAKARI IC PX 1/> 4 RANDY RANDY AREAS EACH 15 MIN EXERCISES GONADOTRO 85398 HYACINTH CL[facility]OS PIN 4 [facility] CHORIONIC INC INC QUALITATI VE APPL 94436 BAKARI BAKARI MODALITY 4 RANDY RANDY 1/> AREAS TRACTION MECHANICA L THERAPEUT 90235 BAKARI VILLEGAS IC PX 1/> 4 RANDY RANDY AREAS EACH 15 MIN EXERCISES CHIROPRAC 44536 BAKARI VILLEGAS TIC 4 RANDY RANDY MANIPULAT ROSS TX SPINAL 3-4 REGIONS CHIROPRAC 46634 BAKARI VILLEGAS TIC 4 RANDY RANDY MANIPULAT ROSS TX SPINAL 3-4 REGIONS THERAPEUT 17141 BAKARI VILLEGAS IC PX 1/> 4 RANDY RANDY AREAS EACH 15 MIN EXERCISES APPL 92032 BAKARI VILLEGAS MODALITY 4 RANDY RANDY 1/> AREAS TRACTION MECHANICA L APPL 54540 BAKARI VILLEGAS MODALITY 4 RANDY RANDY 1/> AREAS TRACTION MECHANICA L CHIROPRAC 39115 BAKARI VILLEGAS TIC 4 RANDY RANDY MANIPULAT ROSS TX SPINAL 3-4 REGIONS GENERAL 43539 COMBINED COMBINED HEALTH 4 PHYSICIAN PHYSICIAN PANEL S LA S LA IRON 87012 COMBINED COMBINED BINDING 4 PHYSICIAN PHYSICIAN CAPACITY S LA S LA LIPID 51894 COMBINED COMBINED PANEL 4 PHYSICIAN PHYSICIAN S LA S LA 25 37209 COMBINED COMBINED HYDROXY 4 PHYSICIAN PHYSICIAN INCLUDES S LA S LA FRACTIONS IF PERFORMED CYANOCOBA 68185 COMBINED COMBINED SCOOTER 4 PHYSICIAN PHYSICIAN VITAMIN S LA S LA B-12 SEDIMENTA 43456 COMBINED COMBINED TION RATE 4 PHYSICIAN PHYSICIAN RBC S LA S LA NON-AUTOM ATED BLOOD 35601 COMBINED COMBINED COUNT 4 PHYSICIAN PHYSICIAN [place] [address] COMBINED COMBINED FREE 4 PHYSICIAN PHYSICIAN THYROXINE S LA S LA OPHTH 68034 [facility] 4 GRE GRE XM&EVAL COMPRHNSV ESTAB PT 1/> DETERMINA 27430 SHAUN DUNN TION 4 GRE GRE REFRACTIV E STATE IADNA 18663 PICKLESIM PICKLESIM NEISSERIA 4 ER JR SUMIT ER JR SUMIT GONORRHOE AE AMPLIFIED PROBE TQ IADNA 49061 PICKLESIM PICKLESIM CHLAMYDIA 4 ER JR SUMIT ER JR SUMIT TRACHOMAT IS AMPLIFIED PROBE TQ CYTP C/V 65644 PICKLESIM PICKLESIM AUTO THIN 4 ER JR SUMIT ER JR SUMIT LYR PREPJ SCR MNL RESCR PHYS ADMINISTR G0008 OLYA DOBSON ATION OF 4 [facility] INFLUENZA VIRUS VACCINE INFLUENZA Q2038 [facility] DOBSON VACC 4 [facility] SPLIT VIRUS 3 YRS & > IM FLUZONE WRIST L3908 [facility] HAND 3 ORTHOSIS EXT CONTROL COCK-UP PREFAB RADEX 85264 GINGER GINGER HAND 3 EDIS ED[place] [address] [place] [address] GINGER GINGER ABDOMEN & 3 EDIS ED[place] [address] [facility] ABDOMINAL 3 [facility] REAL [place] TIME W/[place] [address] [facility] TRANSVAGI 3 DANIKA DANIKA NAL [place] PREG 41727 [facility] UTERUS 3 DANIKA DANIKA REAL TIME W/IMAGE DCMTN TRANSVAG URINE 67918 [facility] LARA 3 DANIKA DANIKA TEST VISUAL COLOR CMPRSN METHS GONADOTRO 98236 HYACIN[facility] PIN 3 [facility] CHORIONIC INC INC QUANTITAT ROSS GONADOTRO 42538 HY[facility]IN[facility] PIN 3 [facility] CHORIONIC INC INC QUANTITAT ROSS COMPREHEN 94259 [facility] SIVE 3 [facility] METABOLIC INC INC PANEL CULTURE 18796 HYACINTH RAM BACTERIAL 3 [facility] LIS INC QUANTTATI VE COLONY COUNT URINE US PREG 56946 [facility] UTERUS 3 [facility] REAL TIME INC INC W/IMAGE DCMTN TRANSVAG BLOOD 34329 [facility] COUNT 3 [facility] COMPLETE INC INC AUTO&AUTO DIFRNTL WBC URNLS DIP 04731 [facility] 3 [facility] STICK/TAB INC INC LET REAGENT AUTO MICROSCOP Y URINE 89220 [facility] 3 [facility] TEST INC INC VISUAL COLOR CMPRSN METHS HEMOGLOBI 35210 [facility] N 3 [facility] GLYCOSYLA INC INC ASUNCION A1C COMPREHEN 75075 [facility] SIVE 3 [facility]OS[facility] METABOLIC INC INC PANEL OPHTH 72635 [facility] 3 GRE GRE XM&EVAL COMPRHNSV ESTAB PT 1/> DETERMINA 27811 [facility]UN DUNN TION 3 GRE GRE REFRACTIV E STATE URNLS DIP 47251 [facility] 3 [facility] STICK/TAB INC INC LET REAGENT AUTO MICROSCOP Y URINE 85710 HY[facility] 3 [facility] TEST INC INC VISUAL COLOR CMPRSN METHS URNLS DIP 38227 LARA LARA 2 DANIKA DANIKA STICK/TAB LET RGNT NON-AUTO W/O MICRSCP CYTP C/V 06647 PICKLESIM PICKLESIM AUTO THIN 2 ER JR SUMIT ER JR SUMIT LYR PREPJ SCR MNL RESCR PHYS THERAPEUT 57018 HYACINTH CLAROS IC PX 1/> 2 [facility] AREAS INC INC EACH 15 MIN EXERCISES APPL 04027 [facility] MODALITY 2 [facility] 1/> AREAS INC INC ELEC STIMJ UNATTENDE D APPLICATI 70888 [facility] ON 2 [facility] MODALITY INC INC 1/> AREAS HOT/COLD PACKS APPLICATI 72438 HY[facility] ON 2 [facility] MODALITY INC INC 1/> AREAS HOT/COLD PACKS APPL 30314 [facility] MODALITY 2 [facility] 1/> AREAS INC INC ELEC STIMJ UNATTENDE D THERAPEUT 49722 HYACINTH [facility]OS IC PX 1/> 2 [facility] AREAS INC INC EACH 15 MIN EXERCISES APPL 23970 [facility] MODALITY 2 [facility]OS[facility] 1/> AREAS INC INC ELEC STIMJ EA 15 MIN APPLICATI 24997 HYACIN[facility] ON 2 [facility] MODALITY INC INC 1/> AREAS HOT/COLD PACKS THERAPEUT 80063 HYACINTH CL[facility]OS IC PX 1/> 2 [facility] AREAS INC INC EACH 15 MIN EXERCISES APPL 82197 [facility] MODALITY 2 [facility]OS[facility] 1/> AREAS INC INC ELEC STIMJ UNATTENDE D THYROID 57251 COMBINED COMBINED HORM 2 PHYSICIAN PHYSICIAN UPTK/THYR S LA S LA OID HORMONE BINDING RATIO LIPID 76339 COMBINED COMBINED PANEL 2 PHYSICIAN PHYSICIAN S LA S LA SEDIMENTA 24739 COMBINED COMBINED TION RATE 2 PHYSICIAN PHYSICIAN RBC [place] [address] COMBINED COMBINED THYROXINE 2 PHYSICIAN PHYSICIAN TOTAL S LA S LA GENERAL 72061 COMBINED COMBINED HEALTH 2 PHYSICIAN PHYSICIAN PANEL S LA S LA PHYSICAL 52680 [facility] THERAPY 2 [facility]OS[facility] EVALUATIO INC INC N 98671 [facility] L[facility] TRANSVAGI 2 DANIKA DANIKA NAL NRV CNDJ 37608 GUILLEN ANTONINO GUILLEN ANTONINO AMPLT&LAT 2 ENCY EA NRV MOTOR W/F-WAVE STD NRV CNDJ 81487 GUILLEN ANTONINO GUILLEN ANTONINO AMPLITUDE 2 & LATENCY EACH NERVE SENSORY HEMOGLOBI 44340 [facility] 2 [facility] ASUNCION A1C GENERAL [id number] [facility] COLLECTIO [address]3452 [facility] VENOUS 2 [facility] VENIPUNCT URE CYANOCOBA 18657 [facility] SCOOTER 2 [facility] B-12 ORGANIC 08605 [facility] ACID 1 2 [facility] [place] [address] [facility] HOMOCYSTE 2 [facility] REMOVAL 35036 [facility] NON-BIODE 2 DANIKA DANIKA GRADABLE DRUG DELIVERY IMPLANT NRV CNDJ 87072 JONES TRA JONES TRA AMPLT&LAT 2 ENCY EA NRV MOTOR W/F-WAVE STD NRV CNDJ 63022 JONES TRA JONES TRA AMPLITUDE 2 & LATENCY EACH NERVE SENSORY NEEDLE 01005 JONES TRA JONES TRA EMG EA 2 EXTREMTY W/PARASPI NL AREA COMPLETE MRI 71218 JONES TRA JONES TRA SPINAL 2 CANAL CERVICAL W/O CONTRAST MATRL RADEX 90545 JONES TRA JONES TRA SPINE 2 THORACIC 2 VIEWS RADEX 35765 JONES TRA JONES TRA SPINE 2 CERVICAL 2 OR 3 [place] [address] [facility] CLOSTRIDI 2 [facility] [place] [address] [facility]IN[facility]SEFERINO [facility] GIARDIA 2 [facility] INC INC CUL BACT 54073 [facility] STOOL 2 [facility] AEROBIC INC INC ISOL SALMONELL A&SHIGELL OVA&THUAN 22531 [facility]IA[facility] ITES 2 [facility] DIRECT INC INC SMEARS CONCENTRA TION & ID DRUG SCR G0434 [facility] NOT 2 CHROMATOG RAPHIC; ANY NUMBER PT ENC ANES 41413 [facility] LOWER 2 ANESTH INTESTINE OF THE BLUE ENDOSCOPY DISTAL DUODENUM CUL 97429 [facility]IA[facility] PRSMPTV 2 [facility] PTHGNC INC INC ORGANISMS SCR DNS CHART SPECIAL 65314 PATHOLOGY [facility] PAT STAIN 2 & GROUP 1 CYTOLOGY MICROORGA LAB NISMS I&R SPCL STN 86611 PATHOLOGY [place] PAT 2 I&R 2 & EXCPT CYTOLOGY MICROORG/ LAB ENZYME/IM CYT COLONOSCO 10716 A[facility] ANT ADEOLA ANT PY 2 W/BIOPSY SINGLE/[place] FLX 09059 A[facility] ANT ADEOLA ANT W/RMVL 2 [place] [address] [facility] [place] [facility] & 2 MEDICAL EDIS PELVIS IMAGING W/[place] [address] [facility] LIPASE 2 [facility] [place] [address] PATHOLOGY [place] PAT SURG 2 & PATHOLOGY CYTOLOGY LAB GROSS&ANNA ROSCOPIC EXAM COMPREHEN 52663 [facility] SIVE 2 [facility] METABOLIC INC INC PANEL BLOOD 36275 [facility] COUNT 2 [facility] COMPLETE INC INC AUTO&[place] [address] [facility] AMYLASE 2 [facility] INC INC URNLS DIP 51536 [facility] 2 [facility] STICK/TAB INC [place] [address] [facility] INFUSION 2 [facility] THERAPY/P INC INC ROPHYLAXI S /DX 1ST TO 1 HR EGD 43495 A[facility] ANT ADEOLA ANT TRANSORAL 2 BIOPSY SINGLE/MU LTIPLE URINE 99991 [facility] 2 [facility] TEST INC [place] [address] [facility] INFUSION 2 [facility] THERAPY INC INC PROPHYLAX IS/[place] [address] [facility] ABDOMEN & 2 [facility] PELVIS INC INC W/O CONTRAST MATERIAL URNLS DIP 98141 OAKES OAKES 2 LC LC STICK/TAB LET RGNT NON-AUTO W/O MICRSCP DRUG SCR G0434 [facility] NOT 1 CHROMATOG RAPHIC; ANY NUMBER PT ENC RADIOLOGI 99209 [place] [facility] C EXAM 1 MEDICAL EDIS CHEST 2 IMAGING VIEWS ASS FRONTAL&L ATERAL PRESSURIZ 80954 [facility] ED/NONPRE 1 [facility] SSURIZED INC INC INHALATIO N TREATMENT INJECTION 97212 [facility] 1 SINGLE/ML T TRIGGER POINT 3/> [place] NJX [address] [facility] DX/THER 1 SBST EPIDURAL/ SUBARACH LUMBAR/SA CRAL FLUOR 56284 [facility] NEEDLE/CA 1 TH SPINE/PAR ASPINAL DX/THER ADDON OPHTH 62721 JIMMIE SCIFR MEDICAL 1 VISION ANG XM&EVAL COMPRE NEW PT 1/> VST MRI 93071 NEURODIAG [place] SPINAL 1 NOSTICPSC ROL CANAL LUMBAR W/O CONTRAST MATERIAL RADEX 15866 [facility]ENTRAL JARVIS SPINE 1 [place] LC LUMBOSACR ORTHOPAED AL 2/3 ICS PLC VIEWS PRESSURIZ 81815 HYACIN[facility] GARCIAON ED/NONPRE 1 [facility] SSURIZED INC INC INHALATIO N TREATMENT US BREAST 75754 PAYAL MILES REAL 1 MEDICAL EDIS TIME IMAGING W/[place] [address] [facility] INFUSION 1 [facility] THERAPY INC INC PROPHYLAX IS/DX EA HOUR HYSTEROSC 6812 HYACINTH HYACINTH OPY 1 [facility] INC INC OTHER 6909 HAYCIN[facility] CL[facility] DILATION 1 [facility] AND INC INC CURETTAGE OF UTERUS ANES 41136 [facility] KAITLIN HYSTEROSC 1 ANESTH ADRIANA OPY&/HYST OF THE EROSALPIN BLUE GOGRAPHY W/[place] [address] CHIPPS KIRK ANNA SURG 1 KIAH & PATHOLOGY DUBILIER GROSS&ANNA ROSCOPIC EXAM HYSTEROSC 55094 HYACINTH HYACINTH OPY BX 1 [facility] ENDOMETRI INC INC UM&/POLYP C W/WO D&C GONADOTRO 79141 [facility] PIN 1 [facility] CHORIONIC INC INC QUALITATI VE BLOOD 71300 HY[facility]TH HYACINTH COUNT 1 [facility] COMPLETE INC INC AUTO&[place] [address] [facility]SV[facility] 1 [facility] [address]791 PATHOLOGY PATHOLOGY NEISSERIA 0 & & CYTOLOGY CYTOLOGY [facility] LAB AE AMPLIFIED PROBE TQ IADNA 21346 PATHOLOGY PATHOLOGY CHLAMYDIA 0 & & CYTOLOGY CYTOLOGY TRACHOMAT LAB LAB IS AMPLIFIED PROBE TQ CYTP C/V 23850 PATHOLOGY PATHOLOGY AUTO THIN 0 & & LYR CYTOLOGY CYTOLOGY PREPJ SCR LAB LAB MNL RESCR PHYS INSERTION 28909 [facility] IMPLANTAB [facility] [place] CONTRACEP TIVE CAPSULES URINE 55071 [facility] 0 [facility] TEST CLINIC OF VISUAL [place] COLOR CMPRSN METHS ETONOGEST J7307 [facility] REL 0 [facility] CNTRACPT CLINIC OF IMPL SYS [place] INCL IMPL & SPL URINE 47520 [facility] 0 [facility] TEST INC INC VISUAL COLOR CMPRSN METHS RADIOLOGI 43548 Imer MONTAGUE EXAM 0 MEDICAL RANI Pierson CHEST 2 IMAGING VIEWS ASSOCIATE FRONTAL&L S ATERAL INSERTION 91330 [facility], 9 [facility] J INTRAUTER CLINIC OF INE DEVICE [place] IUD PLL[facility] LEVONORGE J7302 [facility], STREL-RLS 9 [facility] J E CLINIC OF INTRAUTER N [place] CNTRACPT PLLC 52 MG URINE 98110 [facility], 9 [facility] J TEST CLINIC OF VISUAL COLOR [place] CMPRSN PLLC METHS CYTP C/V 58434 PATHOLOGY PATHOLOGY AUTO THIN 9 & & LYR CYTOLOGY CYTOLOGY PREPJ SCR LAB LAB MNL RESCR PHYS COMPREHEN 37188 [facility]IN[facility] SIVE 9 [facility] METABOLIC INC INC PANEL BLOOD 86973 [facility] COUNT 9 [facility] COMPLETE INC INC AUTO&AUTO DIFRNTL [facility] 26173 [facility] 9 [facility] MANA[facility] S T 30 MIN/< SUBQ [address] PER [facility] DAY E/M S NORMAL CIRCUMCIS [address] W/CLAMP/O [facility] DEV S W/BLOCK SUBQ [address] PER ASSOCIATE DAY E/M S NORMAL 1ST 97075 [facility]/JIMBO 9 [facility] S CARE PER DAY NML NB LOW 741 HYACINTH [facility] CERVICAL 9 [facility] INC SECTION ANESTHESI 03545 [facility] MCDANIEL, Tato 9 ANESTH LESLEY F OF THE DELIVERY [place] ONLY 64602 KING CARIAS, DELIVERY 9 ARETHA Andrade ONLY 14919 [facility], DELIVERY 9 [facility] J ONLY CLINIC OF W/POSTPAR IVAN CARE [place] PLL DOPPLER 27047 [facility], VELOCIMET 9 [facility] J RY CLINIC OF UMBILICAL ARTERY [place] PLL[facility] 53955 [facility], BIOPHYSIC 9 [facility] J AL CLINIC OF PROFILE W/[place] [address] [facility], 9 [facility] J UTERUS CLINIC OF LIMITED 1/> [place] FETUSES [facility] US PREG 17997 [facility], UTERUS 9 [facility] J REAL TIME CLINIC OF F/U TRNSABDL [place] PER FETUS PLLC 27829 [facility], BIOPHYSIC 9 [facility] J AL CLINIC OF PROFILE W/O [place] NON-STRES [facility] S TESTING DOPPLER 99978 [facility], VELOCIMET 9 [facility] J RY [facility] UMBILICAL ARTERY [place] [facility] DOPPLER 44086 [facility], VELOCIMET 9 [facility] J RY [facility] UMBILICAL ARTERY [place] PLLC 16751 [facility], BIOPHYSIC 9 [facility] J AL CLINIC OF PROFILE W/[place] [address] [facility], 9 [facility] J UTERUS CLINIC OF LIMITED 1/> [place] [place] 15351 [facility], UTERUS 9 [facility] J REAL TIME CLINIC OF F/U TRNSABDL [place] PER FETUS PLLC 04944 [facility], BIOPHYSIC 9 [facility] J AL CLINIC OF PROFILE W/O [place] NON-STRES PLLC S TESTING DOPPLER 27414 [facility], VELOCIMET 9 [facility] J RY [facility] UMBILICAL [facility]ERY [place] [facility] BLOOD 73217 HYACINTH GARCIAON COUNT 9 [facility] COMPLETE INC INC AUTO&AUTO DIFRNTL WBC FIBRIN 92576 HYACINTH CLAR[facility] DGRADJ 9 [facility] PRODUCTS INC INC D-DIMER QUAL/SEMI LACI FIBRINOGE 94369 HYACIN[facility] CLAROS N 9 [facility] ACTIVITY INC INC PROTHROMB 43748 HYACINTH CLAROS IN TIME 9 [place] [address] HYACIN[facility] BLOOD/URI 9 [facility] C ACID INC INC THROMBOPL 44209 [facility] ASTIN 9 [facility] TIME INC INC PARTIAL PLASMA/WH OLE BLOOD BASIC 80406 HYACIN[facility] CL[facility] METABOLIC 9 [facility] PANEL INC INC CALCIUM TOTAL TRANSFERA 19761 HYACIN[facility] SE 9 [facility] ASPARTATE INC INC AMINO AST SGOT TRANSFERA 10668 [facility]IN[facility] SE 9 [facility] ALANINE INC INC AMINO ALT SGPT 79761 [facility] NONSTRESS 9 [facility] TEST INC INC URNLS DIP 79293 HYACIN[facility] CLAROS 9 [facility] STICK/TAB INC INC LET REAGENT AUTO MICROSCOP Y OBSERVATI 61841 KING CARIAS, ON/INPATI 9 ARETHA Andrade [facility]ARE 55 MINUTES [place] PREG 39042 [facility], UTERUS 9 [facility]ALTH T[facility]HA J REAL TIME CLINIC OF F/U TRNSABDL [place] PER [facility] BLD GLU A4253 [facility] TEST/REAG 9 PHARMACY PHARMACY T STRIPS #591 #591 HOME BLD GLU MON-50 DOPPLER 60393 [facility], VELOCIMET 9 [facility] J RY [facility] UMBILICAL [facility]ERY [place] [facility] 55296 W[facility] BIOPHYSIC 9 [facility]ALTH T[facility]HA Lott AL CLINIC OF PROFILE W/O [place] NON-STRES [facility] S TESTING 34685 W[facility] BIOPHYSIC 9 HEALTH TASHA J AL CLINIC OF PROFILE W/O [place] NON-STRES [facility] S TESTING DOPPLER 99855 [facility], VELOCIMET 9 [facility] J RY [facility] UMBILICAL [facility] [place] [facility] CUL BACT 16142 COMBINED COMBINED XCPT 9 PHYSICIAN PHYSICIAN URINE S LAB S LAB BLOOD/[place] 31606 [facility], UTERUS 9 [facility]ALTH T[facility]HA J REAL TIME CLINIC OF F/U TRNSABDL [place] PER [facility] US PREG 07366 [facility], UTERUS 9 [facility] J REAL TIME CLINIC OF F/U TRNSABDL [place] PER [facility] DOPPLER 92498 [facility], VELOCIMET 9 [facility] T[facility] J RY CLINIC OF UMBILICAL ARTERY [place] [facility] 21834 [facility], BIOPHYSIC 9 [facility]ALTH T[facility]HA J AL CLINIC OF PROFILE W/O [place] NON-STRES [facility] [place] P[place] 04214 [facility] UTERUS 9 QUAKER QUAKER REAL TIME HOSP HOSP F/U TRNSABDL PER FETUS CUL BACT 56244 COMBINED COMBINED XCPT 9 PHYSICIAN PHYSICIAN URINE S LAB S LAB BLOOD/STO OL AEROBIC ISOL ANTIBODY 72795 COMBINED COMBINED CHLAMYDIA 9 PHYSICIAN PHYSICIAN S LAB S LAB [place] PREG 92434 [facility] UTERUS 9 QUAKER QUAKER REAL TIME HOSP HOSP F/U TRNSABDL PER FETUS RADIOLOGI 24291 [place] Imer TRIPLETT 9 MEDICAL RANI Pierson EXAMINATI IMAGING ON CHEST ASSOCIATE SINGLE S VIEW FRONTAL 59601 [facility], NONSTRESS 9 [facility] J TEST CLINIC OF [place] [facility] 26140 [facility], NONSTRESS 9 [facility] J TEST CLINIC OF [place] [facility] URNLS DIP 49942 HYACINTH CLAROS 9 [facility] STICK/TAB INC INC LET REAGENT [place] P[place] 26311 [facility] UTERUS 9 QUAKER QUAKER REAL TIME HOSP HOSP F/U TRNSABDL PER FETUS BLD GLU A4253 [facility] TEST/REAG 8 PHARMACY PHARMACY T STRIPS #591 #591 HOME BLD GLU MON-50 [place] PREG 92790 [facility] UTERUS 8 QU[facility]ER QUAKER W/DETAIL HOSP HOSP ANISH 1ST GESTATION DIAB G0109 [facility] SELF-MGMT 8 [facility] TRN [facility] GROUP SESSION PER 30 MIN GONADOTRO 18401 [facility] OF PIN 8 [facility] INC CHORIONIC QUANTITAT ROSS URNLS DIP 15754 DHS/CO HYACINTH [address] [place] [address] HEALTH STICK/TAB [facility] LET RGNT BANK ACCT NON-AUTO W/O MICRSCP ALPHA-FET 89339 [facility] OF OPROTEIN 8 [facility] No[employer] [facility] [place] [address] LAB[facility] OF [facility]ONE OF ESTRIOL 8 [facility] INC GLUC BLD 73224 [facility] GLUC MNTR [address] [place] [address] DEV [facility] CLEARED BANK ACCT FDA SPEC HOME USE URNLS DIP 17827 DHS/CO HYACINTH [address] [place] [address] HEALTH STICK/TAB [facility] LET RGNT BANK ACCT NON-AUTO W/O MICRSCP CYTP 44445 [facility] CERV/VAG [address] [place] [address] AUTO THIN [facility] LAYER BANK ACCT PREP MNL SCREEN ANTIBODY 88629 [facility] OF SCREEN 8 [employer] [facility] [employer] INC RBC EACH SERUM TECHNIQUE BLOOD 87334 [facility] OF TYPING 8 [employer] [facility] [place] INC SEROLOGIC ABO BLOOD 06575 [facility] OF TYPING 8 [employer] [facility] [employer] INC SEROLOGIC RH (D) COLLECTIO 87490 [facility] HYACINTH N VENOUS [address] [place] [address] BLOOD [facility] VENIPUNCT BANK ACCT URE IADNA 90225 [facility] [place] [address] [place] [address] GONORRHOE BANK ACCT AE AMPLIFIED PROBE TQ SYPHILIS 20198 [facility] TEST [address] [place] [address] NON-TREPO [facility] NEMAL BANK ACCT ANTIBODY QUAL IADNA 26625 [facility] CHLAMYDIA [address] [place] [address] TRACHOMAT BANK [place] [address] DHS/CO HYACINTH HEPATITIS 8 [facility] SURFACE BANK ACCT ANTIGEN ANTIBODY 46149 DHS/CO HYACINTH RUBELLA 8 [facility] BANK ACCT BLOOD 30258 HYACINTH CLAROS COUNT 8 [facility] COMPLETE INC INC AUTO&AUTO DIFRNTL WBC URNLS DIP 75054 HYACINTH GARCIAON 8 [facility] STICK/TAB INC INC LET REAGENT AUTO [place]CROSCOP [place] PREG 90896 PAYAL UZIEL, UTERUS 8 MEDICAL RANI P REAL TIME IMAGING W/IMAGE ASSOCIATE DCMTN S TRANSVAG GONADOTRO 19688 HYACINTH CLAROS PIN 8 [facility] CHORIONIC INC INC QUANTITAT ROSS CULTURE 06404 HYACINTH CLAROS BACTERIAL 8 [facility] INC INC QUANTTATI VE COLONY COUNT URINE CULTURE 12506 HYACINTH CLRAOS BACTERIAL 8 [facility] INC INC QUANTTATI VE COLONY COUNT URINE COMPREHEN 90199 HYACINTH CL[facility]OS SIVE 8 [facility] METABOLIC INC INC PANEL US PREG 77379 HYACINTH CLAROS UTERUS 8 [facility] REAL TIME INC INC W/[place] [address] HYACINTH CLAROS LIPASE 8 [facility] INC INC URNLS DIP 97372 HYACINTH CLAROS 8 [facility] STICK/TAB INC INC LET REAGENT AUTO MICROSCOP Y BLOOD 71064 HYACINTH CLAROS COUNT 8 [facility] COMPLETE INC INC AUTO&[place] [address] HYACINTH CLAROS AMYLASE 8 [facility] INC INC URINE 60817 HYACINTH CLAROS 8 [facility] TEST INC INC VISUAL COLOR CMPRSN METHS Encounters Encounter Start End Date Code Location Performer Type Date OFFICE 80029 [facility] COBIAN OUTPATIEN 7 7 [facility]ABETIC T VISIT CENTER, 25 P MINUTES OFFICE 81748 JAQUELIN VILLEGAS OUTPATIEN 7 7 N FAMILY T VISIT CHIROPRAC 10 T MINUTES OFFICE 54412 [facility] CO[facility]AN OUTPATIEN 6 6 DIABETIC T VISIT CENTER, 15 P MINUTES HOSPITAL HYACINTH - 6 6 [facility] OUTPATIEN INC T OFFICE 61322 OLYA DOBSON [facility]PATIEN 6 6 [facility] 15 MINUTES OFFICE 22903 [facility] JEANINE OUTPATIEN 6 6 PHYSICIAN T VISIT S GROUP 25 MINUTES OFFICE 21991 OLYA DOBSON OUTPATIEN 6 6 [facility] T VISIT 15 MINUTES OFFICE 63927 M[facility] ARANZA OUTPATIEN 6 6 DIABETIC T VISIT CENTER, 25 P MINUTES OFFICE 25653 O[facility]A DOBSON OUTPATIEN 6 6 [facility] T VISIT 15 MINUTES OFFICE 24492 OLYA DOBSON OUTPATIEN 6 6 [facility] T VISIT 15 MINUTES HOSPITAL HYACINTH - 6 6 [facility] OUTPATIEN INC T OFFICE 30962 OLYA DOBSON OUTPATIEN 6 6 [facility] T VISIT 15 MINUTES OFFICE 62112 M[facility] COBIAN SOB OUTPATIEN 6 6 DIABETIC T VISIT CENTER, 25 P MINUTES OFFICE 00201 WILLIEGORDON ARANZA WOLF OUTPATIEN 6 6 DIABETIC T VISIT 5 CENTER, MINUTES P OFFICE 10578 JAQUELIN VILLEGAS OUTPATIEN 6 6 N FAMILY RANDY T VISIT CHIROPRAC 10 T MINUTES OFFICE 59649 OLYA DOBSON OUTPATIEN 6 6 [facility] T VISIT 15 MINUTES OFFICE 19343 [facility] MARCO OUTPATIEN 6 6 PHYSICIAN DANIKA T VISIT S GROUP 15 MINUTES OFFICE 40605 OLYA DOBSON OUTPATIEN 6 6 [facility] T VISIT 15 MINUTES OFFICE 17123 MATEO COBIAN SOB OUTPATIEN 6 6 DIABETIC T VISIT CENTER, 15 P MINUTES EMERGENCY 76433 JUSTINA SANCHEZ 5 5 PHYSICIAN DEPARTMEN S, PLLC T VISIT HIGH/URGE NT SEVERITY OFFICE 80794 OLYA DOBSON OUTPATIEN 5 5 [facility] T VISIT 15 MINUTES OFFICE 99669 LEODANSARAI VILLEGAS OUTPATIEN 5 5 N FAMILY RANDY T VISIT CHIROPRAC 10 T MINUTES OFFICE 60696 MATEO WOLF OUTPATIEN 5 5 DIABETIC T VISIT CENTER, 25 P MINUTES OFFICE 10692 [facility] LARA OUTPATIEN 5 5 PHYSICIAN DANIKA T VISIT S GROUP 15 MINUTES EMERGENCY 04020 HYACINTH 5 5 [facility] DEPARTMEN INC T VISIT LIMITED/M INOR PROB HOSPITAL HYACINTH - 5 5 [facility] OUTPATIEN INC T EMERGENCY 85706 JUSTINA TELLEZ 5 5 PHYSICIAN DEPARTMEN S, PLLC T VISIT MODERATE SEVERITY HOSPITAL HYACINTH - 5 5 [facility] OUTPATIEN INC T HOSPITAL HYACINTH - 5 5 [facility] OUTPATIEN INC T HOSPITAL HYACINTH - 5 5 [facility] OUTPATIEN INC T EMERGENCY 25942 HYACINTH 5 5 [facility] DEPARTMEN INC T VISIT MODERATE SEVERITY EMERGENCY 08448 JUSTINA SOLORZANO 5 5 PHYSICIAN ANNA DEPARTMEN S, PLLC T VISIT HIGH/URGE NT SEVERITY HOSPITAL HYACINTH - 5 5 [facility] OUTPATIEN INC T HOSPITAL HYACINTH - 5 5 [facility] OUTPATIEN INC T OFFICE 31863 MATEO PEDROZA OUTPATIEN 5 5 FOOT & N SHABNAM T VISIT ANKLE CE 15 MINUTES OFFICE 29408 OLYA DOBSON OUTPATIEN 5 5 [facility] T VISIT 15 MINUTES OFFICE 17197 [place] [facility] OUTPATIEN 5 5 DIABETIC R TAR T VISIT CENTER 25 MINUTES EMERGENCY 75806 JUSTINA SOLORZANO 5 5 PHYSICIAN ANNA DEPARTMEN S, PLLC T VISIT MODERATE SEVERITY OFFICE 37719 [facility] SCHULSTAD OUTPATIEN 5 5 PHYSICIAN CAM T VISIT S GROUP 10 MINUTES HOSPITAL HYACINTH - 5 5 [facility] OUTPATIEN INC T OFFICE 69123 [facility] OJEDA OUTPATIEN 5 5 PHYSICIAN MARGOTH T VISIT S GROUP 15 MINUTES OFFICE 73187 [facility] SCHULSTAD OUTPATIEN 5 5 PHYSICIAN CAM T VISIT S GROUP 15 MINUTES EMERGENCY 68246 JUSTINA SOLORZANO 5 5 PHYSICIAN ANNA DEPARTMEN S, PLLC T VISIT HIGH/URGE NT SEVERITY OFFICE 41031 [facility] OJEDA OUTPATIEN 5 5 PHYSICIAN MARGOTH T VISIT S GROUP 15 MINUTES OFFICE 97203 [facility] OJEDA OUTPATIEN 5 5 PHYSICIAN MARGOTH T NEW 20 S GROUP MINUTES HOSPITAL HYACINTH - 5 5 [facility] OUTPATIEN INC T EMERGENCY 94655 JUSTINA ULLOA 5 5 PHYSICIAN LINARES DEPARTMEN S, PLLC T VISIT HIGH/URGE NT SEVERITY OFFICE 93609 OLYA DOBSON OUTPATIEN 5 5 [facility] T VISIT 15 MINUTES HOSPITAL HYACNITH - 5 5 [facility] OUTPATIEN INC T OFFICE 80922 MATEO COBIAN SOB OUTPATIEN 5 5 DIABETIC T VISIT CENTER, 25 P MINUTES OFFICE 07570 [facility] YMAN OUTPATIEN 5 5 PHYSICIAN EUG T VISIT S GROUP 10 MINUTES OFFICE 50392 [facility] JEANINE OUTPATIEN 5 5 PHYSICIAN ANNA T VISIT S GROUP 15 MINUTES OFFICE 31647 HYACINTH PAIZ OUTPATIEN 5 5 [facility] ANNA T VISIT HOSPITAL 15 MINUTES OFFICE 05561 MATEO FRANCOSTUARTLeticia WOLF OUTPATIEN 5 5 DIABETIC T VISIT CENTER [address] PEDROZA OUTPATINICHOLAS 5 5 DANIEL Leon SHABNAM T VISIT MIRTA 15 DPM PSC MINUTES OFFICE 74181 OLYA DOBSON OUTPATIEN 5 5 [facility] T VISIT 15 MINUTES HOSPITAL HYACINTH - 5 5 [facility] OUTPATIEN INC T HOSPITAL CENTRAL - 5 5 [facility]ER OUTPATIEN HOSP T OFFICE 33593 QUAKER [facility] OUTPATIEN 5 5 HEALTH AYAD T VISIT MEDICAL 40 GROUP MINUTES OFFICE 23945 JAQUELIN VILLEGAS OUTPATIEN 5 5 N FAMILY RANDY T VISIT CHIROPRAC 10 T MINUTES OFFICE 95984 [facility] MARCO OUTPATIEN 4 4 PHYSICIAN DANIKA T VISIT S GROUP 15 MINUTES OFFICE 71907 OLYA DOBSON OUTPATIEN 4 4 [facility] T VISIT 15 MINUTES OFFICE 91814 [facility] JONES TRA OUTPATIEN 4 4 [place] T VISIT ORTHOPAED 15 [facility] MINUTES OFFICE 92391 [facility] CONSULTAT 4 4 NEUROLOGY AYAD ION NEW/ESTAB CONSULTAN PATIENT T 60 MIN OFFICE 01146 [facility] SHANEPATIEN 4 4 PHYSICIAN T VISIT S GROUP 25 MINUTES OFFICE 17519 OLYA DOBSON OUTNATALIE 4 4 [facility] T VISIT 15 MINUTES OFFICE 82274 [facility] JONES TRA OUTPATIEN 4 4 [place] T VISIT ORTHOPAED 15 [facility] MINUTES OFFICE 51269 OLYA PAL 4 4 [facility] T VISIT 15 MINUTES EMERGENCY 35418 [facility] 4 4 TRUDI DEPARTMEN EMERGENCY T VISIT PHYS HIGH/URGE NT SEVERITY OFFICE 16319 MATEO PEDROZA OUTPATIEN 4 4 FOOT & N SHABNAM T VISIT ANKLE CE 15 MINUTES OFFICE 87700 JONES TRA JONES TRA OUTPATIEN 4 4 T VISIT 15 MINUTES OFFICE 62790 MATEO HAZELSO OUTPATIEN 4 4 FOOT & N SHABNAM T NEW 30 ANKLE CE MINUTES OFFICE 58884 OLYA LYNNPATIEN 4 4 [facility] T VISIT 15 MINUTES OFFICE 98299 BAKARI VILLEGAS OUTPATIEN 4 4 RANDY RANDY T VISIT 10 MINUTES EMERGENCY 14769 JEANINE SOLORZANO 4 4 ANNA ANNA DEPARTMEN T VISIT HIGH/URGE NT SEVERITY OFFICE 79683 OLYA DOBSON OUTPATIEN 4 4 [facility] T VISIT 15 MINUTES OFFICE 79174 BAKARI VILLEGAS OUTPATIEN 4 4 RANDY RANDY T VISIT 10 MINUTES OFFICE 69907 BAKARI VILLEGAS OUTPATIEN 4 4 RANDY RANDY T VISIT 10 MINUTES OFFICE 64608 [facility] ALRA OUTPATIEN 4 4 DANIKA DANIKA T VISIT 15 MINUTES HOSPITAL HYACINTH - 4 4 [facility] OUTPATIEN INC T OFFICE 25519 BAKARI VILLEGAS OUTPATIEN 4 4 RANDY RANDY T NEW 30 MINUTES OFFICE 38808 OLYA PAL 4 4 [facility] T VISIT 15 MINUTES OFFICE 17642 OLYA DOBSON OUTPATIEN 4 4 [facility] T VISIT 15 MINUTES OFFICE 48278 OLYA DOBSON OUTPATINICHOLAS 4 4 [facility] T VISIT 15 MINUTES PERIODIC 18375 [facility] PREVENTIV 4 4 DANIKA DANIKA E MED EST PATIENT 18-39 YRS OFFICE 05482 OLYA DOBSON OUTPATIEN 3 3 [facility] T VISIT 15 MINUTES EMERGENCY 21156 [facility] 3 3 DEPARTMEN T VISIT MODERATE SEVERITY OFFICE 11-27-201 11-27-201 70088 ADEOLA VILLALTA ADEOLA ANT OUTPATIEN 3 3 T VISIT 15 MINUTES OFFICE 33027 OLYA DOBSON OUTPATIEN 3 3 [facility] T VISIT 15 MINUTES EMERGENCY 54189 JEANINE SOLORZANO 3 3 ANNA [facility] DEPARTMEN T VISIT HIGH/URGE NT SEVERITY HOSPITAL HYACINTH - 3 3 [facility] OUTPATIEN INC T OFFICE 02284 ADEOLA ANT ADEOLA ANT OUTPATIEN 3 3 T VISIT 25 MINUTES OFFICE 20918 WILMER MUÑIZ OUTPATIEN 3 3 T VISIT 25 MINUTES HOSPITAL HYACINTH - 3 3 [facility] OUTPATIEN INC T EMERGENCY 15494 LUZ ESCOBAR DEPT 3 3 III FIDE III FIDE VISIT HIGH SEVERITY& THREAT [facility] HYACINTH - 3 3 [facility] OUTPATIEN INC T EMERGENCY 60040 [facility]ACINTH 3 3 [facility] DEPART[facility] INC T VISIT MODERATE SEVERITY OFFICE 10175 OLYA OLYA OUTPATIEN 3 3 [facility] T VISIT 15 MINUTES OFFICE 32316 NITESHVICKEY OLYA LYNNPATIEN 3 3 [facility] T VISIT 15 MINUTES OFFICE 13831 GUILLEN ANTONINO MUÑIZ OUTPATIEN 3 3 T VISIT 15 MINUTES HOSPITAL HYACINTH - 3 3 [facility] OUTPATIEN INC T OFFICE 33311 ADEOLA ANT ADEOLA ANT OUTPATIEN 3 3 T VISIT 25 MINUTES HOSPITAL HYACINTH - 3 3 [facility] OUTPATIEN INC T EMERGENCY 98726 SHAUN RASHID DEPT 3 3 EMERGENCY FIDE VISIT SERVICES HIGH SEVERITY& THREAT [facility] EMERGENCY 83656 HYACINTH 3 3 [facility] DEPARTMEN INC T VISIT LOW/MODER SEVERITY OFFICE 00064 WILMER GUILLEN ANTONINO OUTPATIEN 2 2 T VISIT 15 MINUTES OFFICE 20349 OLYA DOBSON OUTPATIEN 2 2 [facility] T VISIT 15 MINUTES OFFICE 70619 OLYA DOBSON OUTPATIEN 2 2 [facility] T VISIT 15 MINUTES OFFICE 37767 ADEOLA ANT ADEOLA ANT OUTPATIEN 2 2 T VISIT 15 MINUTES PERIODIC 60178 [facility] PREVENTIV 2 2 DANIKA DANIKA E MED EST PATIENT 18-39 YRS OFFICE 61697 [facility] OUTPATIEN 2 2 [facility] SLEEP T VISIT AND REHA 10 MINUTES HOSPITAL HYACINTH - 2 [address] [facility] T OFFICE 14065 OLYA OLYA OUTPATIEN 2 2 [facility] T VISIT 15 MINUTES OFFICE 98877 WILMER GUILLEN ANTONINO OUTPATIEN 2 2 T VISIT 25 MINUTES HOSPITAL HYACINTH - 2 2 [facility] 06378 [facility] OUTPATIEN 2 2 DANIKA DANIKA T VISIT 15 MINUTES OFFICE 41395 OLYA DOBSON OUTPATIEN 2 2 [facility] T VISIT 15 MINUTES OFFICE 74572 [facility] HILARIO II OUTPATIEN 2 2 [facility] SLEEP VINCENT T NEW 30 AND REHA MINUTES OFFICE 17984 OLYA DOBSON OUTPATIEN 2 2 [facility] T VISIT 15 MINUTES OFFICE 97799 [facility] OUTPATIEN 2 2 DANIKA DANIKA T VISIT 25 MINUTES OFFICE 91733 WILMER GUILLEN ANTONINO OUTPATIEN 2 2 T NEW 45 MINUTES HOSPITAL ANTHONYON - 2 2 [facility] T OFFICE 78272 ADEOLA ANT ADEOLA ANT OUTPATIEN 2 2 T VISIT 25 MINUTES OFFICE 60632 SAMARIA GARIBAY OUTPATIEN 2 2 T NEW 30 MINUTES OFFICE 22943 SAMARIA GARIBAY CONSULTAT 2 2 ION NEW/ESTAB PATIENT 40 MIN OFFICE 86468 JONES TRA JONES TRA OUTPATIEN 2 2 T VISIT 15 MINUTES OFFICE 32155 JONES TRA JONES TRA OUTPATIEN 2 2 T VISIT 10 MINUTES OFFICE 56697 JONES TRA JONES TRA OUTPATIEN 2 2 T VISIT 15 MINUTES OFFICE 53885 OLYA DOBSON OUTPATIEN 2 2 [facility] T OFFICE 17105 [facility] 2 2 T VISIT 15 MINUTES OFFICE 36601 ADEOLA ANT ADEOLA ANT OUTPATIEN 2 2 T VISIT 25 MINUTES OFFICE 64982 [facility] 2 2 T VISIT 15 MINUTES EMERGENCY 82911 SHAUN HOLLAND DEPT 2 2 EMERGENCY VISIT SERVICES HIGH SEVERITY& THREAT [facility] HYACIN[facility] - 2 2 [facility] T EMERGENCY 77009 HYACINTH 2 2 [facility] T VISIT MODERATE SEVERITY OFFICE 15836 ADEOLA ANT ADEOLA ANT OUTPATIEN 2 2 T NEW 45 MINUTES OFFICE 66999 JEANINE SOLORZANO OUTPATIEN 2 2 ANNA ANNA T NEW 20 MINUTES OFFICE 01030 [facility] 2 T VISIT 15 MINUTES [facility]OSP[facility] - 2 2 [facility] T OFFICE 38547 [facility] OUTPATIEN [address] [facility] 10 HOSPITAL MINUTES P OFFICE 66203 OLYA DOBSON OUTPATIEN 1 1 [facility] T [facility]IS[facility] 15 MINUTES OFFICE 62038 [facility] 1 1 T VISIT 15 MINUTES OFFICE 43405 [facility] 1 1 T VISIT 15 MINUTES EMERGENCY 21666 [facility]ACIN[facility] 1 1 [facility] DEPARTMEN INC T VISIT MODERATE SEVERITY EMERGENCY 75245 LIANG MARGOTH LIANG MARGOTH 1 1 DEPARTMEN T VISIT HIGH/URGE NT SEVERITY HOSPITAL [facility] - 1 1 [facility] T OFFICE 56357 [facility] 1 1 T VISIT 15 MINUTES OFFICE 44218 [facility] 1 1 T VISIT 15 MINUTES OFFICE 69343 [facility] 1 1 T VISIT 15 MINUTES OFFICE 56884 [facility] 1 1 T VISIT 15 MINUTES OFFICE 16815 OLYA DOBSON OUTPATIEN 1 1 [facility] T [facility]IS[facility] 15 MINUTES OFFICE 75181 [facility] OUTPATI[facility] 1 1 [place] [facility] VIS[facility]OPAED 15 [facility] MINUTES OFFICE 69201 [facility] CONSULTAT 1 1 [place] [facility] I[facility] ORTHOPAED NEW/ESTAB [facility] PATIENT 40 MIN EMERGENCY 87211 HYACINTH 1 1 [facility] DEPARTMEN INC T VISIT MODERATE SEVERITY EMERGENCY 78152 SHAUN PEREYRA 1 1 EMERGENCY ANNA DEPARTMEN SERVICES T VISIT HIGH/URGE NT SEVERITY HOSPITAL [facility] - 1 1 [facility] INC HOSPITAL HYACINTH [facility] 1 1 [facility] OUTPATIEN [facility] OFFICE 61007 [facility] 1 1 [facility] T VISIT CLINIC OF 15 [place] MINUTES EMERGENCY 77527 HYACINTH [address] [facility] T VISIT LOW/MODER SEVERITY HOSPITAL HYACINTH - 1 1 [facility] 40075 SHAUN ESCOBAR 1 1 EMERGENCY III [facility] T VISIT HIGH/URGE NT SEVERITY OFFICE 16562 [facility] 1 1 [facility] T VISIT CLINIC OF 15 [place] MINUTES HOSPITAL HYACIN[facility] - 1 1 [facility] HYACIN[facility] - 1 1 [facility] OFF[facility] 27771 OLYA DOBSON OUTPATIEN 1 1 [facility] T NEW 30 MINUTES OFFICE 80870 [facility] OUTPATI[facility] 1 1 [facility] T VISIT [facility]IN[facility] OF 15 [place] MINUTES [facility] 84340 [facility] PREVENTIV 0 0 [facility] E MED EST CLINIC OF PATIENT ROLAND 18-39 YRS EMERGENCY 23751 SHAUN ESCOBAR 0 0 EMERGENCY III, [facility] SERVICES [place] T VISIT HIGH/URGE ASSOCIATE NT S SEVERITY EMERGENCY 78667 HYACINTH [address] [facility] T VISIT LOW/MODER SEVERITY HOSPITAL HYACINTH - 0 0 [facility] OFF[facility] 03457 [facility] OUTPATIEN 9 9 [facility] T VISIT CLINIC OF 15 MINUTES [facility] [address] HYACINTH [address] [facility] [place] [facility] VISIT LIMITED/M [facility] - 9 9 [facility] EMERGENCY [id number] SHAUN HERNANDEZ, 9 9 EMERGENCY GOSIA R [facility] SERVICES T VISIT HIGH/URGE ASSOCIATE NT S SEVERITY HOSPITAL [facility] 9 9 [facility] OFFICE 21413 [facility], OUTPATIEN 9 9 [facility] J T VISIT CLINIC OF 25 MINUTES [facility] OFFICE 01270 [facility], OUTPATIEN 9 9 [facility] J T VISIT CLINIC OF 15 MINUTES [facility] - 9 9 [facility] INPATIENT [facility] - 9 9 [facility] - 9 9 [facility] - 9 9 [facility] OFF[facility] 63759 [facility], OUTPATIEN 9 9 [facility] J T VISIT CLINIC OF 15 MINUTES [facility] OFFICE 55961 [facility], OUTPATIEN 9 9 [facility] J T VISIT CLINIC OF 15 MINUTES [facility] C[facility]TRAL - 9 9 [facility] OFF[facility] 11306 EMET, JORDON 9 9 SHANELLE ION DIAGNOSTI A NEW/ESTAB CCENTER PATIENT 15 MIN OFFICE 05271 ROSENTHAL ROSENTHAL OUTPATIEN 9 9 JR, J V JR, J V T VISIT 15 MINUTES [facility]OSP[facility] - 9 9 [facility] 21063 [facility]INTH 9 9 [facility] VISIT MODERATE SEVERITY OFFICE 16515 [facility], OUTPATIEN 9 9 [facility] J T VISIT CLINIC OF 15 MINUTES [facility] - 9 9 [facility] INC T OFFICE 71245 [facility] OUTPATIEN 9 9 [facility] Lott T VISIT CLINIC OF 15 MINUTES [facility] OFFICE 59170 [facility], OUTPATIEN 9 9 [facility] Lott T VISIT CLINIC OF 15 MINUTES [facility] - 9 9 [facility] OUTPAT[facility] INC T EMERGENCY 26387 [facility]ACINTH 9 9 [facility] DEPART[facility] INC T VISIT LIMITED/[facility] - 9 9 [facility] OUTPATI[facility] INC T EMERGENCY 76518 ANGELA RESENDEZ, 9 9 [facility] T VISIT ON HIGH/URGE NT SEVERITY HOSPITAL CENTRAL - 9 9 [facility] OFFICE 27431 ROSENTHALQUINCY BAILEYILLO OUTPATIEN 8 8 JR, J V JR, J V T VISIT 15 MINUTES EMERGENCY 80426 [facility]ACINTH 8 8 [facility] T VISIT LIMITED/M [facility] - 8 8 [facility] OUT[facility] T HOSPITAL CENTRAL - 8 8 [facility] OFF[facility] 00824 [facility] OUT[facility] 8 8 [facility] T VISIT [facility] 10 [facility] MINUTES OFFICE 45522 [facility] OUTPATIEN 8 8 [facility] T NEW 30 [facility] MINUTES [facility]PITAL HYACIN[facility] - 8 8 [facility] OUTPATIEN INC T EMERGENCY 79092 [facility]ACIN[facility] 8 8 [facility] DEPARTMEN INC T VISIT MODERATE SEVERITY EMERGENCY 46508 [facility] 8 8 [facility] T VISIT HIGH/URGE NT SEVERITY [facility]OSPITAL [facility] - 8 8 [facility] T
--- OUTSIDE RECORDS SUMMARY | 2016-06-18 14:30 | External Medical Summary Rpt ---
Demographics Preferred Language Moroccan Marital Status Unknown Lutheran Affiliation Unknown Race Unknown Ethnic Group Unknown Author Author , Organization [employer] Address Unknown Phone Unavailable Purpose Continuity of Care Document - through 2016 Immunization No patient found.
--- OUTSIDE RECORDS SUMMARY | 2016-06-18 14:30 | External Medical Summary Rpt ---
Demographics Preferred Language Haitian Marital Status Unknown Faith Affiliation Unknown Race Unknown Ethnic Group Unknown Author Author , Organization [employer] Address Unknown Phone Unavailable Purpose Continuity of Care Document - through 2016 Immunization No patient found.
== END 2016-06-13 20:36 | disposition home or self-care (01) ==
LOC: UTC 19:23
DX: J06.9 Acute upper respiratory infection, unspecified (principal)

== ENCOUNTER 2016-08-24 20:41 | Emergency (ER) | payer MEDICAID ==
[~2016-08-24] VITALS: Ht 170.2 cm; Wt 132.9 kg
[~2016-08-24 20:41] MED LIST changes: +AMITRIPTYLINE10 MG PO; +AUGMENTIN 875-1 EACH PO; +FLONASE 50 MCG16 GM; +MELOXICAM15 MG PO
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
[2016-08-24 20:59] VITALS: BP 130/85
--- OUTSIDE RECORDS SUMMARY | 2016-08-24 21:02 | External Medical Summary Rpt ---
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 SE PK 00 05 05 0 15 5 OK 71 WE Ac 37 -0 -1 .0 L- 18 HR ti 80 9- 0- 00 MA 65 MA ve 75 20 20 RT 3 N 19 11 11 II 3 PH I AR WI MA LL CY IA # M E 10 05 91 AM 00 03 05 1 30 10 OK 71 AR Ac OX 78 -1 -0 .0 L- 10 NO ti IC 12 4- 8- 00 MA 88 LD ve IL 61 20 20 RT 5 LI 33 11 11 RI N 1 PH CH 50 AR AR 0 MA D MG CY W # CA PS 10 UL 05 E 91 FL 00 04 04 2 1. 1 OK 71 CL Ac UC 17 -1 -1 00 L- 15 AR ti ON 25 5- 8- 0 MA 42 KE ve AZ 41 20 20 RT 4 OL 21 11 11 DE E 1 PH RE 15 AR K 0 MA J MG CY # TA BL 10 ET 05 91 FL 00 04 04 2 1. 1 OK 71 CL Ac UC 17 -1 -1 00 L- 15 AR ti ON 25 5- 5- 0 MA 42 KE ve AZ 41 20 20 RT 4 OL 21 11 11 DE E 1 PH RE 15 AR K 0 MA J MG CY # TA BL 10 ET 05 91 ES 00 04 04 0 60 30 OK 71 CL Ac TR 55 -1 -1 .0 L- 15 AR ti AD 50 5- 5- 00 MA 42 KE ve IO 88 20 20 RT 5 L 70 11 11 DE 2 2 PH RE MG AR K MA J TA CY BL # ET 10 05 91 00 04 04 0 20 3 OK 44 CL Ac 40 -0 -0 .0 L- 92 AR ti 60 1- 1- 00 MA 77 KE ve 35 20 20 RT 4 80 11 11 DE 1 PH RE AR K MA J CY # 10 05 91 AN 43 03 03 1 15 15 OK 71 AR Ac TI 19 -1 -1 .0 L- 10 NO ti PY 90 4- 4- 00 MA 88 LD ve RI 01 20 20 RT 4 NE 61 11 11 RI -B 5 PH CH EN AR AR ZO MA D CA CY W IN # E EA [address] 91 OP AM 00 03 03 1 30 10 OK 71 AR Ac OX 78 -1 -1 [...] IA # M E 10 05 91 NA 53 06 06 00 60 30 CL 19 CL Ac SD 74 -0 -1 .0 IN 52 AR ti OX 60 9- 8- 00 IC 63 KE ve EN 19 20 20 00 09 09 PH DE 50 1 AR RE 0 MA K MG CY J TA BL ET 00 06 06 00 14 2 WA [...] AR K MA J CY #5 91 BUENROSTRO 53 05 06 00 20 10 [...] MA J CY #5 91 ME 00 02 02 00 21 6 WA 70 GA Ac TH 60 -0 -2 .0 L- 07 IN ti YL 34 8- 6- 00 MA 21 EY ve SD 59 20 20 RT 8 ED 31 09 09 ID NI 5 PH CH SO AR AE LO MA L NE CY S 4 #5 MG 91 DO SE PK AZ 00 02 02 00 6. 5 WA 70 GA Ac IT 78 -0 -2 00 L- 07 IN ti HR 11 8- 6- 0 MA 21 EY ve OM 49 20 20 RT 7 YC 66 09 09 ID IN 8 PH CH AR AE 25 MA L 0 CY S MG #5 TA 91 BL ET TE 51 01 01 01 20 3 WA 70 CL Ac RC 67 -0 -3 .0 L- 03 AR ti ON 21 9- 0- 00 MA 17 KE ve AZ 30 20 20 RT 8 OL 20 09 09 DE E 0 PH RE 0. AR K 8% MA J CY CR EA #5 M 91 RA 00 10 01 02 60 30 WA 69 CL Ac NI 17 -2 -3 .0 L- 92 AR ti TI 24 4- 0- 00 MA 61 KE ve DI 35 20 20 RT 2 NE 77 08 09 DE 0 PH RE 15 AR K 0 MA J MG CY TA #5 BL 91 ET TE 51 01 01 00 20 3 WA 70 CL Ac RC 67 -0 -1 .0 L- 03 AR ti ON 21 9- 5- 00 MA 17 KE ve AZ 30 20 20 RT 8 OL 20 09 09 DE E 0 PH RE 0. AR K 8% MA J CY CR EA #5 M 91 59 10 01 02 30 30 WA 69 CL Ac 63 -2 -1 .0 L- 92 AR ti 00 4- 5- 00 MA 61 KE ve 41 20 20 RT 1 43 08 09 DE 5 PH RE AR K MA J CY #5 91 FE 00 01 00 30 30 WA 88 CL Ac RR 67 -0 -1 .0 L- 13 AR ti OU 70 9- 5- 00 MA 33 KE ve S 07 20 20 RT 5 BUENROSTRO 01 09 09 DE LF 0 PH RE AT AR K E MA J 32 CY 5 MG #5 91 TA BL ET LO 00 12 00 30 30 WA 88 CA Ac RA 78 -2 -1 .0 L- 13 ST ti TA 15 9- 5- 00 MA 27 IL ve DI 07 20 20 RT 8 LO NE 70 08 09 1 PH JR 10 AR J MA V MG CY TA #5 BL 91 ET NA 00 12 00 17 30 WA 70 CA Ac SO 08 -2 -1 .0 L- 01 ST ti NE 51 9- 5- 00 MA 64 IL ve X 28 20 20 RT 1 LO 50 80 08 09 1 PH JR MC AR J G MA V NA CY SA L #5 SP 91 RA Y CE 00 12 00 20 10 WA 70 CA Ac FD 78 -2 -1 .0 L- 01 ST ti IN 12 9 5- 00 MA 64 IL ve IR 17 20 20 RT 0 LO 66 08 09 30 0 PH JR 0 AR J MG MA V CY CA PS #5 UL 91 E 63 01 01 00 10 2 WA 44 GO Ac 30 -0 -1 .0 L- 73 BL ti 40 3- 5- 00 MA 33 E ve 56 20 20 RT 8 RO 00 09 09 ND 5 PH AL AR E MA CY #5 91 ME 00 02 20 00 21 6 WA 70 GO Ac TH 60 -0 -1 .0 L- 02 BL ti YL 34 3- 5- 00 MA 39 E ve SD 59 20 20 RT 1 RO ED 31 09 09 ND NI 5 PH AL SO AR E LO MA NE CY 4 #5 MG 91 DO SE PK ME 00 12 00 21 6 WA 69 GA Ac TH 60 -1 -0 .0 L- 99 IN ti YL 34 4- 1- 00 MA 82 EY ve SD 59 20 20 RT 7 ED 31 08 09 ID NI 5 PH CH SO AR AE LO MA L NE CY S 4 #5 MG 91 DO SE PK 00 12 01 00 18 7 WA 88 GA Ac 03 -1 -0 0. L- 13 IN ti 18 4- 1- 00 MA 21 EY ve 68 20 20 0 RT 8 51 08 09 ID 2 PH CH AR AE MA L CY S #5 91 AZ 00 12 01 00 6. 5 WA 69 GA Ac IT 78 -1 -0 00 L- 99 IN ti HR 11 4- 1- 0 MA 82 EY ve OM 49 20 20 RT 8 YC 66 08 09 ID IN 8 PH CH AR AE 25 MA L 0 CY S MG #5 TA 91 BL ET 59 10 12 01 30 30 [...] CY TA #5 BL 91 ET 00 11 12 00 20 5 [...] AR K MA J CY #5 91 Procedures Procedure DOS Code Location Performer Comment CHIROPRAC 31865 [facility] TIC 7 N FAMILY MANIPULAT CHIROPRAC ROSS TX T SPINAL 3-4 REGIONS CHIROPRAC 30340 [facility] TIC 7 N FAMILY MANIPULAT CHIROPRAC ROSS TX T SPINAL 3-4 REGIONS CHIROPRAC 70373 [facility] TIC 7 N FAMILY MANIPULAT CHIROPRAC ROSS TX T SPINAL 3-4 REGIONS HEMOGLOBI 34564 [facility] MU[facility]AMM[facility] N 7 DIABETIC GLYCOSYLA [facility] A1C P CHIROPRAC 41327 [facility] TIC 7 N FAMILY MANIPULAT CHIROPRAC ROSS TX T SPINAL 3-4 REGIONS CHIROPRAC 81709 [facility] 7 N FAMILY MANIPULAT CHIROPRAC ROSS TX T SPINAL 3-4 REGIONS CHIROPRAC 38683 [facility] TIC 7 N FAMILY MANIPULAT CHIROPRAC ROSS TX T SPINAL 3-4 REGIONS CHIROPRAC 33933 [facility] TIC 7 N FAMILY MANIPULAT CHIROPRAC ROSS TX T SPINAL 3-4 REGIONS CHIROPRAC 64060 [facility] TIC 7 N FAMILY MANIPULAT CHIROPRAC ROSS TX T SPINAL 3-4 REGIONS CHIROPRAC 17326 [facility] TIC 7 N FAMILY MANIPULAT CHIROPRAC ROSS TX T SPINAL 3-4 REGIONS HEMOGLOBI 41691 [facility] MUHAMMADD N 6 DIABETIC GLYCOSYLA [facility], [facility] A1C P BLOOD 35209 [facility] COUNT 6 [facility] COMPLETE INC INC AUTO&AUTO DIFRNTL WBC LIPID 71141 [facility] PANEL 6 [facility] INC INC COLLECTIO 53367 [facility] N VENOUS 6 [facility] BLOOD INC INC VENIPUNCT URE COMPREHEN 90376 [facility] SIVE 6 [facility] METABOLIC INC INC PANEL CHIROPRAC 47454 [facility] TIC 6 N FAMILY RANDY MANIPULAT CHIROPRAC ROSS TX T SPINAL 3-4 REGIONS CHIROPRAC 67211 [facility] TIC 6 N FAMILY RANDY MANIPULAT CHIROPRAC ROSS TX T SPINAL 3-4 REGIONS HEMOGLOBI 18528 MATEO FRANCOJAD N 6 DIABETIC GLYCOSYLA [facility], [facility] A1C P CHIROPRAC 98492 [facility] TIC 6 N FAMILY RANDY MANIPULAT CHIROPRAC ROSS TX T SPINAL 3-4 REGIONS CHIROPRAC 21727 [facility] TIC 6 N FAMILY RANDY MANIPULAT CHIROPRAC ROSS TX T SPINAL 3-4 REGIONS CHIROPRAC 10765 [facility] [place] TIC 6 N FAMILY [place] MANIPULAT CHIROPRAC ROSS TX T SPINAL 3-4 REGIONS CHIROPRAC 21675 [facility] TIC 6 N FAMILY RANDY MANIPULAT CHIROPRAC ROSS TX T SPINAL 3-4 REGIONS CHIROPRAC 74627 [facility] [place] TIC 6 N FAMILY DARRON MANIPULAT CHIROPRAC ROSS TX T SPINAL 3-4 REGIONS CHIROPRAC 81927 [facility] [place] TIC 6 N FAMILY [place] MANIPULAT CHIROPRAC ROSS TX T SPINAL 3-4 REGIONS COMPREHEN 66058 [facility] SIVE 6 [facility] METABOLIC INC INC PANEL COLLECTIO 50328 [facility] N VENOUS 6 [facility] BLOOD INC INC VENIPUNCT URE LIPID 07554 [facility] PANEL 6 [place] [address] [facility] THYROID 6 [facility] STIMULATI INC INC NG HORMONE TSH CHIROPRAC 84634 [facility] TIC 6 N FAMILY RANDY MANIPULAT CHIROPRAC ROSS TX T SPINAL 3-4 REGIONS CHIROPRAC 17128 [facility] TIC 6 N FAMILY RANDY MANIPULAT CHIROPRAC ROSS TX T SPINAL 3-4 REGIONS HEMOGLOBI 37022 M[facility] COBIAN SOB N 6 DIABETIC GLYCOSYLA CENTER, ASUNCION A1C P CHIROPRAC 76290 [facility]IN VILELGAS TIC 6 N FAMILY RANDY MANIPULAT CHIROPRAC ROSS TX T SPINAL 3-4 REGIONS CHIROPRAC 58605 [facility] TIC 6 N FAMILY RANDY MANIPULAT CHIROPRAC ROSS TX T SPINAL 3-4 REGIONS CHIROPRAC 63641 [facility] TIC 6 N FAMILY RANDY MANIPULAT CHIROPRAC ROSS TX T SPINAL 3-4 REGIONS CHIROPRAC 33241 [facility]QUEL[facility] LONG TIC 6 N FAMILY DARRON MANIPULAT CHIROPRAC ROSS TX T SPINAL 3-4 REGIONS HEMOGLOBI 07175 [place] AMJAD SOB N 6 DI[facility]IC GLYCOSYLA CENTER, ASUNCION A1C P CHIROPRAC 67375 [facility] TIC 6 N FAMILY RANDY MANIPULAT CHIROPRAC ROSS TX T SPINAL 3-4 REGIONS CHIROPRAC 20296 [facility] TIC 6 N FAMILY RANDY MANIPULAT CHIROPRAC ROSS TX T SPINAL 3-4 REGIONS CHIROPRAC 91210 [facility] TIC 6 N FAMILY RANDY MANIPULAT CHIROPRAC ROSS TX T SPINAL 3-4 REGIONS CHIROPRAC 70039 [facility] TIC 6 N FAMILY RANDY MANIPULAT CHIROPRAC ROSS [place] T SPINAL 3-4 [place] [address] [facility] TRANSVAGI 6 PHYSICIAN DANIKA NAL S GROUP CHIROPRAC 86230 JAQUELIN TONYLEY TIC 6 N FAMILY [place] MANIPULAT CHIROPRAC ROSS TX T SPINAL 3-4 REGIONS CHIROPRAC 77418 [facility] TIC 6 N FAMILY RANDY MANIPULAT CHIROPRAC ROSS TX T SPINAL 3-4 REGIONS CHIROPRAC 88473 JAQUELIN LONG TIC 6 N FAMILY DARRON MANIPULAT CHIROPRAC ROSS TX T SPINAL 3-4 REGIONS CHIROPRAC 11985 [facility] TIC 6 N FAMILY RANDY MANIPULAT CHIROPRAC ROSS TX T SPINAL 3-4 REGIONS CHIROPRAC 88739 [facility] [place] TIC 6 N FAMILY RANDY MANIPULAT CHIROPRAC ROSS TX T SPINAL 3-[place] [address] [facility] TRANSVAGI 6 PHYSICIAN DANIKA NAL S GROUP ECG 03487 HYACINTH MARTINEZ ROUTINE 6 [facility] W/LEAST P 12 LDS I&R ONLY RADIOLOGI 98632 [place] GINGER C EXAM 6 MEDICAL EDIS CHEST 2 IMAGING VIEWS ASS FRONTAL&L ATERAL URNLS DIP 76187 [facility] MARCO 6 PHYSICIAN DANIKA STICK/TAB S GROUP LET RGNT NON-AUTO W/O MICRSCP HEMOGLOBI 07211 [place] AMJAD SOB N 6 [facility] GL[facility]LA CENTER, ASUNCION A1C P RADEX 39212 PAYAL BEINEKE FOOT 5 MEDICAL ROCIO COMPLETE IMAGING MINIMUM 3 ASS VIEWS SURGICAL L3260 [facility] BOOT/SHOE 5 TECHNOLOG TECHNOLOG EACH IES INC IES INC CHIROPRAC 68064 [facility] TIC 5 N FAMILY RANDY MANIPULAT CHIROPRAC ROSS TX T SPINAL 1-2 REGIONS HEMOGLOBI 69571 [place] AMJAD SOB N 5 DIABETIC GLYCOSYLA [place], ASUNCION A1C P GLUC BLD 49291 HYACIN[facility] GLUC MNTR 5 [facility] DEV INC INC CLEARED FDA SPEC HOME USE ANESTHESI 13311 [facility] FERRO MAKENZIE A 5 ANESTH INCOMPLET OF THE E/[place] [address] [facility], [place] SURG 5 [facility] PATHOLOGY GROSS&ANNA ROSCOPIC EXAM INJECTION J2405 [facility] 5 [facility] ONDANSETR INC INC ON HCL PER 1 [place] [address] [facility] INFUSION 5 [facility] THERAPY INC INC PROPHYLAX IS/DX EA HOUR ECG 42366 HYACINTH JAVIER JR ROUTINE 5 [facility] W/LEAST P 12 LDS I&[place] [address] [facility] INFUSION 5 [facility] THERAPY/P INC INC ROPHYLAXI S /DX 1ST TO 1 HR THERAPEUT 11220 [facility] IC 5 [facility] INJECTION INC INC IV PUSH EACH NEW DRUG TX MISSED 83592 [facility] LARA 5 PHYSICIAN DANIKA FIRST S GROUP TRIMESTER SURGICAL ECG 06930 [facility] ROUTINE 5 [facility] ECG INC INC W/LEAST 12 LDS TRCG ONLY W/O I&R US PREG 47819 [facility] UTERUS 5 [facility] REAL TIME INC INC W/IMAGE DCMTN TRANSVAG DETERMINA 49314 SHAUN DUNN [facility] 5 GRE GRE REFRACTIV E STATE OPHTH 95996 [facility] 5 GRE GRE XM&EVAL COMPRHNSV ESTAB PT 1/> COMPREHEN 25412 [facility] SIVE 5 [facility] METABOLIC INC INC PANEL URNLS DIP 05337 [facility] 5 [facility] STICK/TAB INC INC LET REAGENT AUTO MICROSCOP Y BLOOD 11608 [facility] COUNT 5 [facility] COMPLETE INC INC AUTO&AUTO DIFRNTL WBC OBSTETRIC 31169 [facility] PANEL 5 [facility] INC INC COLLECTIO 51294 HY[facility] N VENOUS 5 [facility] BLOOD INC INC VENIPUNCT URE INF AGT G0432 [facility]IN[facility] AB DETECT 5 [facility] EIA TECH INC INC HIV-1&/HI V-2 SCR US PREG 68268 [facility] LARA UTERUS 5 PHYSICIAN DANIKA REAL TIME S GROUP W/IMAGE DCMTN TRANSVAG IADNA 54048 [facility] CHLAMYDIA 5 [facility] INC INC TRACHOMAT IS AMPLIFIED PROBE TQ IADNA 06253 [facility] NEISSERIA 5 [facility] INC INC GONORRHOE AE AMPLIFIED PROBE TQ RADEX 66520 [facility] FOOT 5 FOOT & N SHABNAM COMPLETE ANKLE CE MINIMUM 3 VIEWS HEMOGLOBI 41935 [place] [facility] N 5 DIABETIC R TAR [facility]OSYLA CENTER ASUNCION A1C RADEX 32521 [facility] FOOT 5 MEDICAL ROCIO COMPLETE IMAGING MINIMUM 3 ASS VIEWS COLSC FLX 00764 [facility] MIKAYLA 5 PHYSICIAN CAM W/REMOVAL S GROUP [place] [address] [facility], [facility]ICK[facility] SURG 5 [facility] ER JR SUMIT PATHOLOGY GROSS&ANNA ROSCOPIC EXAM CHIROPRAC 40122 [facility] TIC 5 N FAMILY RANDY MANIPULAT CHIROPRAC ROSS TX T SPINAL 1-[address] [place] [address] [facility] ABDOMEN & 5 MEDICAL ROCIO PELVIS IMAGING W/O ASS CONTRAST MATERIAL IADNA 66629 [facility], [facility]ICK[facility] CHLAMYDIA 5 LLC ER JR USMIT TRACHOMAT IS AMPLIFIED PROBE TQ URNLS DIP 45728 [facility] OJEDA 5 PHYSICIAN MARGOTH STICK/TAB S GROUP LET RGNT NON-AUTO W/O MICRSCP IADNA 21206 [facility], [facility] NEISSERIA 5 LLC ER JR SUMIT GONORRHOE AE AMPLIFIED PROBE TQ CYTP C/V 02658 [facility], [facility] AUTO THIN 5 LLC ER JR SUMIT LYR PREPJ SCR MNL RESCR PHYS GONADOTRO 72282 [facility] PIN 5 [facility] CHORIONIC INC INC QUALITATI VE COLLECTIO 77968 [facility] N VENOUS 5 [facility] [address] [facility] ABDOMEN & 5 MEDICAL ROCIO PELVIS IMAGING W/O ASS CONTRAST MATERIAL CHIROPRA 27065 [facility] TIC 5 N FAMILY RANDY MANIPULAT CHIROPRAC ROSS TX T SPINAL 1-2 REGIONS COLLECTIO 85572 [facility] N VENOUS 5 [facility] BLOOD INC INC VENIPUNCT URE LIPID 03056 [facility] PANEL 5 [facility] INC INC FOR DIAB A5512 [facility] AMJAD SOB ONLY MX 5 DIABETIC DNSITY CENTER, INSRT DIR P FORMD PRFAB EA HEMOGLOBI 04549 [facility] AMJAD SOB N 5 [facility]IC GLYCOSYLA CENTER, ASUNCION A1C P DIAB ONLY A5500 [facility] AMJAD SOB FIT CSTM 5 DIABETIC PREP&SPL CENTER, SHOE MX P DNSITY INSRT INJECTION J1040 [facility] JEANINE 5 PHYSICIAN ANNA METHYLPRE S GROUP DNISOLONE ACETATE 80 MG THERAPEUT 33077 [facility] JEANINE IC 5 PHYSICIAN ANNA PROPHYLAC S GROUP TIC/DX INJECTION SUBQ/IM COLLECTIO 09634 [facility] AMJAD SOB N VENOUS 5 DIABETIC BLOOD CENTER VENIPUNCT URE CHIROPRAC 64404 [facility] TIC 5 N FAMILY RANDY MANIPULAT CHIROPRAC ROSS TX T SPINAL 1-2 REGIONS THERAPEUT 82751 JAQUELIN [facility]LEGAS IC PX 1/> 5 N FAMILY RANDY AREAS CHIROPRAC EACH 15 T MIN EXERCISES CHIROPRAC 62558 [facility] TIC 5 N FAMILY RANDY MANIPULAT CHIROPRAC ROSS TX T SPINAL 1-2 REGIONS APPL 78514 [facility] MODALITY 5 N FAMILY RANDY 1/> AREAS CHIROPRAC TRACTION T MECHANICA L CHIROPRAC 40125 [facility] TIC 5 N FAMILY RANDY MANIPULAT CHIROPRAC ROSS TX T SPINAL 1-2 REGIONS THERAPEUT 88990 JAQUELIN VILLEGAS IC PX 1/> 5 N FAMILY RANDY AREAS CHIROPRAC EACH 15 T MIN EXERCISES COMPUTER- 73801 HYACINTH [facility] AIDED 5 [facility] DETECTION INC INC SCREENING MAMMOGRAP HY SCREENING G0202 [facility] 5 [facility] MAMMOGRAP INC INC HY CHIRAG INCL CAD WHEN PERFORMD APPL 97100 [facility] MODALITY 5 N FAMILY RANDY 1/> AREAS CHIROPRAC ELEC T STIMJ EA 15 MIN CHIROPRAC 79749 [facility] [place] TIC 5 N FAMILY RANDY MANIPULAT CHIROPRAC ROSS TX T SPINAL 1-2 REGIONS THERAPEUT 90774 JAQUELIN V[place]LEGAS IC PX 1/> 5 N FAMILY RANDY AREAS CHIROPRAC EACH 15 T MIN EXERCISES HEMOGLOBI 37963 [facility] N 5 [facility]DANISM [facility] HOSP ASUNCION A1C COMPREHEN 07832 [facility] SIVE 5 [facility] HOSP PANEL CHIROPRAC 96994 [facility] [place] TIC 5 N FAMILY RANDY MANIPULAT CHIROPRAC ROSS TX T SPINAL 1-2 REGIONS THERAPEUT 08913 JAQUELIN [facility]LEGAS IC PX 1/> 5 N FAMILY RANDY AREAS CHIROPRAC EACH 15 [place] [address] [facility] TRANSVAGI 4 PHYSICIAN DANIKA NAL S GROUP NEEDLE 76108 YAZDANISM [facility] EMG EA 4 NEUROLOGY AYAD EXTREMTY W/PARASPI CONSULTAN NL AREA T COMPLETE NERVE 08543 [facility]ISM [facility] CONDUCTIO 4 NEUROLOGY AYAD N STUDIES 11-12 CONSULTAN STUDIES T SMR PRIM 50175 [facility] SRC WET 4 PHYSICIAN DANIKA [place] [facility] NFCT AGT MRI 14805 [facility] JONES TRA SPINAL 4 [place] CANAL ORTHOPAED LUMBAR ICS PLC W/O CONTRAST MATERIAL RADIOLOGI 82369 PAYAL JENSEN C EXAM 4 MEDICAL ROCIO CHEST 2 IMAGING VIEWS ASS FRONTAL&L ATERAL RADEX 23673 JONES TRA JONES TRA SPINE 4 LUMBOSACR AL 2/3 VIEWS THERAPEUT 77787 BAKARI BAKARI IC PX 1/> 4 RANDY RANDY AREAS EACH 15 MIN EXERCISES CHIROPRAC 28841 BAKARI BAKARI TIC 4 RANDY RADNY MANIPULAT ROSS TX SPINAL 3-4 REGIONS CHIROPRAC 24998 BAKARI BAKARI TIC 4 RANDY RANDY MANIPULAT ROSS TX SPINAL 3-4 REGIONS THERAPEUT 86634 BAKARI BAKARI IC PX 1/> 4 RANDY RANDY AREAS EACH 15 MIN EXERCISES APPL 14214 BAKARI BAKARI MODALITY 4 RANDY RANDY 1/> AREAS TRACTION MECHANICA L THERAPEUT 05254 [place] 1/> 4 RANDY RANDY AREAS EACH 15 MIN EXERCISES CHIROPRAC 05040 [facility]I BAKARI TIC 4 RANDY RANDY MANIPULAT ROSS TX SPINAL 3-4 REGIONS CHIROPRAC 32901 B[facility]I BAKARI TIC 4 RANDY RANDY MANIPULAT ROSS TX SPINAL 3-4 REGIONS THERAPEUT 39659 [facility] [place] IC PX 1/> 4 RANDY RANDY AREAS EACH 15 MIN EXERCISES RADEX 38424 [place] [facility] FOOT 4 FOOT & N SHABNAM COMPLETE ANKLE CE MINIMUM 3 VIEWS THERAPEUT 20960 [place] [place] PX 1/> 4 RANDY RANDY AREAS EACH 15 MIN EXERCISES CHIROPRAC 33295 B[facility]I BAK[facility]I TIC 4 RANDY RANDY MANIPULAT ROSS TX SPINAL 3-4 REGIONS CHIROPRAC 02421 BAK[facility] BAKARI TIC 4 RANDY RANDY MANIPULAT ROSS TX SPINAL 3-4 REGIONS THERAPEUT 44203 [place] [place] PX 1/> 4 RANDY RANDY AREAS EACH 15 MIN EXERCISES THERAPEUT 17651 [facility] [place]AK[place] IC PX 1/> 4 RANDY RANDY AREAS EACH 15 MIN EXERCISES CHIROPRAC 56204 BAKARI BAKRAI TIC 4 RANDY RANDY MANIP[place] SPINAL 3-[address] [place] [address] [facility] & 4 MEDICAL EDIS PELVIS IMAGING W/O ASS CONTRAST MATERIAL CHIROPRA 98187 BAKARI BAKARI TIC 4 RANDY RANDY MANIPULAT ROSS [place] SPINAL 3-4 REGIONS THERAPEUT 86011 BAKARI BAKARI IC PX 1/> 4 RANDY RANDY AREAS EACH 15 MIN EXERCISES THERAPEUT 55425 BAKARI BAKARI IC PX 1/> 4 RANDY RANDY AREAS EACH 15 MIN EXERCISES CHIROPRA 37262 BAKARI BAKARI TIC 4 RANDY RANDY MANIPULAT ROSS TX SPINAL 3-4 REGIONS THERAPEUT 86118 BAKARI BAKARI IC PX 1/> 4 RANDY RANDY AREAS EACH 15 MIN EXERCISES CHIROPRA 69401 BAKARI BAKARI TIC 4 RANDY RANDY MANIPULAT ROSS [place] SPINAL 3-4 REGIONS THERAPEUT 46415 BAKARI BAKARI IC PX 1/> 4 RANDY RANDY AREAS EACH 15 MIN EXERCISES CHIROPRA 34839 BAKARI BAKARI TIC 4 RANDY RANDY MANIPULAT ROSS [place] SPINAL 3-4 REGIONS CHIROPRA 32202 BAKARI BAKARI TIC 4 RANDY RANDY MANIPULAT ROSS [place] SPINAL 3-4 REGIONS THERAPEUT 34183 BAKARI BAKARI IC PX 1/> 4 RANDY RANDY AREAS EACH 15 MIN EXERCISES THERAPEUT 71374 BAKARI BAKARI IC PX 1/> 4 RANDY RANDY AREAS EACH 15 MIN EXERCISES CHIROPRA 21186 BAKARI BAKARI TIC 4 RANDY RANDY MANIPULAT ROSS TX SPINAL 3-4 REGIONS CHIROPRA 57487 BAKARI BAKARI TIC 4 RANDY RANDY MANIPULAT ROSS TX SPINAL 3-4 REGIONS THERAPEUT 95917 BAKARI BAKARI IC PX 1/> 4 RANDY RANDY AREAS EACH 15 MIN EXERCISES THERAPEUT 90385 BAKARI BAKARI IC PX 1/> 4 RANDY RANDY AREAS EACH 15 MIN EXERCISES CHIROPRA 69496 BAKARI BAKARI TIC 4 RANDY RANDY MANIPULAT ROSS [place] SPINAL 3-4 REGIONS 23710 MARCO LARA TRANSVAGI 4 DANIKA DANIKA NAL CHIROPRAC 97563 BAKARI BAKARI TIC 4 RANDY RANDY MANIPULAT ROSS [place] SPINAL 3-4 REGIONS THERAPEUT 35145 BAKARI BAKARI IC PX 1/> 4 RANDY RANDY AREAS EACH 15 MIN EXERCISES THERAPEUT 83985 BAKARI BAKARI IC PX 1/> 4 RANDY RANDY AREAS EACH 15 MIN EXERCISES CHIROPRAC 00122 BAKARI BAKARI TIC 4 RANDY RANDY MANIPULAT ROSS [place] SPINAL 3-4 REGIONS CHIROPRAC 46721 BAKARI BAKARI TIC 4 RANDY RANDY MANIPULAT ROSS [place] SPINAL 3-4 REGIONS THERAPEUT 11338 BAKARI BAKARI IC PX 1/> 4 RANDY RANDY AREAS EACH 15 MIN EXERCISES APPL 10058 BAKARI BAKARI MODALITY 4 RANDY RANDY 1/> AREAS TRACTION MECHANICA L URINE 00358 MARCO LARA 4 DANIKA DANIKA TEST VISUAL COLOR CMPRSN METHS APPL 08265 BAKARI BAKARI MODALITY 4 RANDY RANDY 1/> AREAS TRACTION MECHANICA L GONADOTRO 35580 HYACINTH CL[facility]OS PIN [facility] QUALITATI VE THERAPEUT 05651 BAKARI BAKARI IC PX 1/> 4 RANDY RANDY AREAS EACH 15 MIN EXERCISES CHIROPRAC 41430 BAKARI BAKARI TIC 4 RANDY RANDY MANIPULAT ROSS [place] SPINAL 3-4 REGIONS CHIROPRAC 89716 BAKARI BAKARI TIC 4 RANDY RANDY MANIPULAT ROSS [place] SPINAL 3-4 REGIONS THERAPEUT 32635 BAKARI BAKARI IC PX 1/> 4 RANDY RANDY AREAS EACH 15 MIN EXERCISES APPL 86091 BAKARI BAKARI MODALITY 4 RANDY RANDY 1/> AREAS TRACTION MECHANICA L APPL 36305 BAKARI BAKARI MODALITY 4 RANDY RANDY 1/> AREAS TRACTION MECHANICA L CHIROPRAC 38027 BAKARI BAKARI TIC 4 RANDY RANDY MANIPULAT ROSS [place] SPINAL 3-4 REGIONS THERAPEUT 54945 BAKARI BAKARI IC PX 1/> 4 RANDY RANDY AREAS EACH 15 MIN EXERCISES CHIROPRAC 62753 BAKARI BAKARI TIC 4 RANDY RANDY MANIPULAT ROSS [place] SPINAL 3-4 REGIONS APPL 29950 BAKARI BAKARI MODALITY 4 RANDY RANDY 1/> AREAS TRACTION MECHANICA L GENERAL 47674 COMBINED COMBINED HEALTH 4 PHYSICIAN PHYSICIAN PANEL S [place] S [place] BLOOD 38876 COMBINED COMBINED COUNT 4 PHYSICIAN PHYSICIAN RETICULOC S LA S LA YTE AUTOMATED IRON 99330 COMBINED COMBINED BINDING 4 PHYSICIAN PHYSICIAN CAPACITY S LA S LA LIPID 98223 COMBINED COMBINED PANEL 4 [place] [address] COMBINED COMBINED FREE 4 PHYSICIAN PHYSICIAN THYROXINE S LA S LA SEDIMENTA 18365 COMBINED COMBINED TION RATE 4 PHYSICIAN PHYSICIAN RBC S LA S LA NON-AUTOM ATED 25 21363 COMBINED COMBINED HYDROXY 4 PHYSICIAN PHYSICIAN INCLUDES S LA S LA FRACTIONS IF PERFORMED CYANOCOBA 29483 COMBINED COMBINED SCOOTER 4 PHYSICIAN PHYSICIAN VITAMIN S LA S LA B-12 OPHTH 59427 SHAUN DUNN MEDICAL 4 GRE GRE XM&EVAL COMPRHNSV ESTAB PT 1/> DETERMINA 63370 SHAUN DUNN TION 4 GRE GRE REFRACTIV E STATE IADNA 43608 PICKLESIM PICKLESIM CHLAMYDIA 4 ER JR SUMIT ER JR SUMIT TRACHOMAT IS AMPLIFIED PROBE TQ IADNA 12395 PICKLESIM PICKLESIM NEISSERIA 4 ER JR SUMIT ER JR SUMIT GONORRHOE AE AMPLIFIED PROBE TQ CYTP C/V 49299 PICKLESIM PICKLESIM AUTO THIN 4 ER JR SUMIT ER JR SUMIT LYR PREPJ SCR MNL RESCR PHYS ADMINISTR G0008 OLYA DOBSON ATION OF 4 [facility] INFLUENZA VIRUS VACCINE INFLUENZA Q2038 OLYA DOBSON VACC 4 [facility] SPLIT VIRUS 3 YRS & > IM FLUZONE RADEX 45400 GINGER GINGER HAND 3 EDIS EDIS MINIMUM 3 VIEWS WRIST L3908 [employer] HAND 3 [place] [address] GINGER GINGER ABDOMEN & 3 EDIS EDIS [place]EL[place] [address] GINGER GINGER ABDOMINAL 3 EDIS EDIS REAL TIME W/[place] [address] [facility] TRANSVAGI 3 DANIKA DANIKA NAL [place] PREG 59288 [facility] [facility] UTERUS 3 DANIKA DANIKA REAL TIME W/IMAGE DCMTN TRANSVAG URINE 56089 [facility] LARA 3 DANIKA DANIKA TEST VISUAL COLOR CMPRSN METHS GONADOTRO 38182 HYAC[facility] PIN 3 [facility] CHORIONIC INC INC QUANTITAT ROSS GONADOTRO 37598 [facility] PIN 3 [facility] CHORIONIC INC INC QUANTITAT ROSS URINE 71918 [facility] 3 [facility] TEST INC INC VISUAL COLOR CMPRSN METHS [place] PREG 28966 GINGER GINGER UTERUS 3 EDIS EDIS REAL TIME W/IMAGE DCMTN TRANSVAG URNLS DIP 74427 [facility] 3 [facility] STICK/TAB INC INC LET REAGENT AUTO MICROSCOP Y BLOOD 30387 [facility] COUNT 3 [facility] COMPLETE INC INC AUTO&AUTO DIFRNTL WBC CULTURE 02435 HYACIN[facility] RAM BACTERIAL 3 [facility] LIS INC QUANTTATI VE COLONY COUNT URINE COMPREHEN 88663 HY[facility]INTH HYACINTH SIVE 3 [facility] METABOLIC INC INC PANEL COMPREHEN 17445 [facility] SIVE 3 [facility] METABOLIC INC INC PANEL HEMOGLOBI 03237 HYACINTHSEFERINO CL[facility]OS N 3 [facility] GLYCOSYLA INC INC ASUNCION A1C DETERMINA 60675 [facility] 3 GRE GRE REFRACTIV E STATE OPHTH 18520 [facility] 3 GRE GRE XM&EVAL COMPRHNSV ESTAB PT 1/> URINE 90764 [facility] 3 [facility] TEST INC INC VISUAL COLOR CMPRSN METHS URNLS DIP 04598 [facility] 3 [facility] STICK/TAB INC INC LET REAGENT AUTO MICROSCOP Y URNLS DIP 94429 [facility] [facility] 2 DANIKA DANIKA STICK/TAB LET RGNT NON-AUTO W/O MICRSCP CYTP C/V 86649 PICKLESIM PICKLESIM AUTO THIN 2 ER JR SUMIT ER JR SUMIT LYR PREPJ SCR MNL RESCR PHYS THERAPEUT 98124 HY[facility] CLAROS IC PX 1/> 2 [facility] AREAS INC INC EACH 15 MIN EXERCISES APPLICATI 10-08-201 66963 [facility]AC[facility]TH ON 2 [facility] MODALITY INC INC 1/> AREAS HOT/COLD PACKS APPL 01339 HYACINTH [facility]ACINTH MODALITY 2 [facility] 1/> AREAS INC INC ELEC STIMJ UNATTENDE D APPLICATI 53706 [facility] ON 2 [facility] MODALITY INC INC 1/> AREAS HOT/COLD PACKS APPL 31806 [facility] MODALITY 2 [facility] 1/> AREAS INC INC ELEC STIMJ UNATTENDE D THERAPEUT 16081 HY[facility]IN[facility]AR[facility] IC PX 1/> 2 [facility] AREAS INC INC EACH 15 MIN EXERCISES APPL 85556 [facility] MODALITY 2 [facility] 1/> AREAS INC INC ELEC STIMJ EA 15 MIN APPL 45895 HYACINTH HYACINTH MODALITY 2 [facility] 1/> AREAS INC INC ELEC STIMJ UNATTENDE D APPLICATI 75951 HYACINTH HYACINTH ON 2 [facility] MODALITY INC INC 1/> AREAS HOT/COLD PACKS THERAPEUT 20583 HYACINTH HYACINTH IC PX 1/> 2 [facility] AREAS INC INC EACH 15 MIN EXERCISES SEDIMENTA 50047 COMBINED COMBINED TION RATE 2 PHYSICIAN PHYSICIAN RBC S LA S LA NON-AUTOM ATED GENERAL 16218 COMBINED COMBINED HEALTH 2 PHYSICIAN [place] [address] COMBINED COMBINED THYROXINE 2 PHYSICIAN PHYSICIAN TOTAL S LA S LA LIPID 39454 COMBINED COMBINED PANEL 2 PHYSICIAN PHYSICIAN S LA S LA THYROID 36144 COMBINED COMBINED HORM 2 PHYSICIAN PHYSICIAN UPTK/THYR S LA S LA OID HORMONE BINDING RATIO PHYSICAL 54574 [facility] THERAPY 2 [facility] [place] 396[address] [place] TRANSVAGI 2 DANIKA DANIKA NAL NRV CNDJ 45200 WILMER RUIZS AMPLT&LAT 2 ENCY EA NRV MOTOR [place] [address] [facility] 2 [facility] GENERAL 64896 [facility] HEALTH 2 [facility] NRV [facility] 59117 GUILLEN ANTONINO GUILLEN ANTONINO AMPLITUDE 2 & LATENCY EACH NERVE SENSORY HEMOGLOBI 11935 [facility] N 2 [facility] ASUNCION A1C COLLECTIO 50280 [facility] N VENOUS 2 [facility] VENIPUNCT URE ORGANIC 76134 [facility] ACID 1 2 [facility] ROSS CYANOCOBA 53974 [facility] SCOOTER 2 [facility] B-12 REMOVAL 31998 [facility] NON-BIODE 2 DANIKA DANIKA GRADABLE DRUG DELIVERY IMPLANT NRV CNDJ 31309 JONES TRA JONES TRA AMPLITUDE 2 & LATENCY EACH NERVE SENSORY NRV CND 34495 JONES TRA JONES TRA AMPLT&LAT 2 ENCY EA NRV MOTOR W/F-WAVE STD NEEDLE 35451 JONES TRA JONES TRA EMG EA 2 EXTREMTY W/PARASPI NL AREA COMPLETE MRI 26534 JONES TRA JONES TRA SPINAL 2 CANAL CERVICAL W/O CONTRAST MATRL RADEX 85358 JONES TRA JONES TRA SPINE 2 CERVICAL 2 OR 3 VIEWS RADEX 66379 JONES TRA JONES TRA SPINE 2 THORACIC 2 [place] [address] [facility] CLOSTRIDI 2 [facility] [place] [address] [facility] GIARDIA 2 [facility] INC INC CUL BACT 19846 [facility] STOOL 2 [facility] AEROBIC INC INC ISOL SALMONELL A&SHIGELL OVA&THUAN 55299 [facility] ITES 2 [facility] DIRECT INC INC SMEARS CONCENTRA TION & ID DRUG SCR G0434 [facility] NOT 2 CHROMATOG RAPHIC; ANY NUMBER PT ENC CUL 25924 [facility] PRSMPTV 2 [facility] PTHGNC [place] [address] [facility] ABDOMEN & 2 [facility] PELVIS [place] [address] [facility] INFUSION 2 [facility] THERAPY/P INC INC ROPHYLAXI S /DX 1ST TO 1 HR COLONOSCO 47775 ADEOLA ANT ADEOLA ANT PY 2 W/BIOPSY SINGLE/[place] COLSC FLX 25012 ADEOLA ANT ADEOLA ANT W/RMVL 2 OF TUMOR POLYP LESION SNARE TQ URINE 61240 [facility] 2 [facility] TEST INC [place] [address] [facility] INFUSION 2 [facility] THERAPY INC INC PROPHYLAX IS/DX EA HOUR EGD 38145 ADEOLA ANT ADEOLA ANT TRANSORAL 2 BIOPSY SINGLE/[place] [address] PATHOLOGY WILFRID PAT SURG 2 & PATHOLOGY CYTOLOGY LAB GROSS&ANNA ROSCOPIC EXAM BLOOD 43738 [facility] COUNT 2 [facility] COMPLETE INC INC AUTO&AUTO DIFRNTL WBC URNLS DIP 17404 [facility] 2 [facility] STICK/TAB INC INC LET [place] [address] [facility] AMYLASE 2 [facility] INC INC COMPREHEN 52869 HYACINTH CL[facility] SIVE 2 [facility] [address] [facility] LIPASE 2 [facility] INC INC SPECIAL 50915 PATHOLOGY WILFRID PAT STAIN 2 & GROUP 1 CYTOLOGY MICROORGA LAB NISMS I&R SPCL STN 66334 PATHOLOGY WILFRID PAT 2 I&R 2 & EXCPT CYTOLOGY MICROORG/ LAB ENZYME/IM CYT ANES 14808 [facility] LOWER 2 ANESTH INTESTINE OF THE [place] [address] HYACIN[facility]OS ABDOMEN & 2 [facility] PELVIS INC INC W/O CONTRAST MATERIAL URNLS DIP 32483 OAKES OAKES 2 LC LC STICK/TAB LET RGNT NON-AUTO W/O MICRSCP DRUG SCR G0434 [facility] ABDI NOT 1 CHROMATOG RAPHIC; ANY NUMBER PT ENC PRESSURIZ 03732 [facility] ED/NONPRE 1 [facility] SSURIZED INC INC INHALATIO N TREATMENT RADIOLOGI 63641 HY[facility] C EXAM 1 [facility] CHEST 2 INC INC VIEWS FRONTAL&L ATERAL INJECTION 98988 [facility] ABDI 1 SINGLE/ML T TRIGGER POINT 3/> MUSCLES FLUOR 42004 [facility] NEEDLE/CA 1 TH SPINE/PAR ASPINAL DX/[place] NJX 52915 [facility] ABDI DX/THER 1 SBST EPIDURAL/ SUBARACH LUMBAR/SA CRAL OPHTH 36570 JIMMIE [employer] MEDICAL 1 VISION ANG XM&EVAL COMPRE NEW PT 1/> VST MRI 81518 NEURODIAG TALANOW SPINAL 1 NOSTICPSC ROL CANAL LUMBAR W/O CONTRAST MATERIAL RADEX 55208 [facility]TRAL JARVIS SPINE 1 [place] LC LUMBOSACR ORTHOPAED AL 2/3 [employer]CS PLC VIEWS PRESSURIZ 32854 HYACINTH CLAROS ED/NONPRE 1 [facility] HOSP SSURIZED INC [place] BREAST 50103 HYACINTH CLAROS REAL 1 [facility] TIME INC INC W/[place] L[place] [address] CHIPPS KIRK ANNA SURG 1 KIAH & PATHOLOGY DUBILIER GROSS&ANNA ROSCOPIC EXAM HYSTEROSC 68572 [facility] OPY BX 1 [facility]ALTH [facility] ENDOMETRI CLINIC OF &/POLYP [place] C W/WO D&[place] [address] HY[facility]IN[facility]OS INFUSION 1 [facility] THERAPY INC INC PROPHYLAX IS/DX EA HOUR ANES 09340 [facility] K[facility] HYSTEROSC 1 ANESTH ADRIANA OPY&/HYST OF THE EROSALPIN BLUE GOGRAPHY W/BX HYSTEROSC 6812 [facility] OPY 1 [facility] INC INC OTHER 8422 [facility]ACIN[facility] CL[facility]OS DILATION 1 [facility] AND INC INC CURETTAGE OF UTERUS BLOOD 59347 HYACINTH HYACINTH COUNT 1 [facility] COMPLETE INC INC AUTO&AUTO DIFRNTL WBC GONADOTRO 95080 HYACINTH HYACINTH PIN 1 [facility] [place] [address] [facility] TRANSVAGI 1 HEALTH DANIKA NAL CLINIC OF [place] IADNA 42197 PATHOLOGY PATHOLOGY CHLAMYDIA 0 & & CYTOLOGY CYTOLOGY TRACHOMAT LAB LAB IS AMPLIFIED PROBE TQ IADNA 74827 PATHOLOGY PATHOLOGY NEISSERIA 0 & & CYTOLOGY CYTOLOGY GONORRHOE LAB LAB AE AMPLIFIED PROBE TQ CYTP C/V 12505 PATHOLOGY PATHOLOGY AUTO THIN 0 & & LYR CYTOLOGY CYTOLOGY PREPJ SCR LAB LAB MNL RESCR PHYS INSERTION 44310 [facility] 0 [facility] IMPLANTAB CLINIC OF LE [place] CONTRACEP TIVE CAPSULES ETONOGEST J7307 [facility] REL 0 [facility] CNTRACPT CLINIC OF IMPL SYS [place] INCL IMPL & SPL URINE 07996 [facility] 0 [facility]A TEST CLINIC OF VISUAL [place] COLOR CMPRSN METHS URINE 40114 [facility] 0 [facility] TEST INC INC VISUAL COLOR CMPRSN METHS RADIOLOGI 94189 HYACIN[facility] CLAROS C EXAM 0 [facility] CHEST 2 INC INC VIEWS FRONTAL&L ATERAL URINE 16973 [facility], 9 [facility] J TEST CLINIC OF VISUAL COLOR [place] CMPRSN PLLC METHS INSERTION 87775 [facility], 9 [facility] J INTRAUTER CLINIC OF INE DEVICE [place] IUD PLLC LEVONORGE J7302 [facility], STREL-RLS 9 [facility] J E CLINIC OF INTRAUTER N [place] CNTRACPT PLLC 52 MG BLOOD 61812 [facility] COUNT 9 [facility] COMPLETE INC INC AUTO&AUTO DIFRNTL WBC COMPREHEN 56570 [facility] SIVE 9 [facility] METABOLIC INC INC PANEL CYTP C/V 64320 PATHOLOGY PATHOLOGY AUTO THIN 9 & & LYR CYTOLOGY CYTOLOGY PREPJ SCR LAB LAB MNL RESCR [facility] 54785 [facility] NIKITA, DISCHARGE 9 CARE R [facility] ASSOCIATE MANAGEMEN S T 30 MIN/< SUBQ 15896 [facility] 9 CARE R NEBO CARE PER ASSOCIATE DAY E/M S NORMAL CIRCUMCIS 94725 [facility] 9 CARE R NEBO W/CLAMP/O [facility] DEV S W/BLOCK SUBQ 55811 [facility] 9 CARE R NEBO CARE PER ASSOCIATE DAY E/M S NORMAL ANESTHESI 27170 [facility], A 9 ANESTH LESLYE F OF THE DELIVERY [place] ONLY 1ST 91100 [facility] NIKITA, HOSP/JIMBO 9 CARE R [facility] [place] [address] KING CARIAS, DELIVERY 9 ARETHA Andrade ONLY 55523 [facility], DELIVERY 9 [facility] J ONLY CLINIC OF W/POSTPAR IVAN CARE [place] PLLC LOW 741 [facility] CERVICAL 9 [place] [address] [facility], 9 [facility] J UTERUS CLINIC OF LIMITED 1/> [place] FETUSES PLLC 65526 [facility], BIOPHYSIC 9 [facility] J AL CLINIC OF PROFILE W/O [place] NON-STRES PLLC S TESTING DOPPLER 32882 [facility], VELOCIMET 9 HEALTH [facility] J RY CLINIC OF UMBILICAL ARTERY [place] PLL[facility] DOPPLER 35635 [facility], VELOCIMET 9 [facility] J RY [facility] UMBILICAL ARTERY [place] PLLC 99120 [facility], BIOPHYSIC 9 [facility] J AL CLINIC OF PROFILE W/O [place] NON-STRES [place] 80133 [facility], UTERUS 9 [facility] J REAL TIME CLINIC OF F/U TRNSABDL [place] PER FETUS PLLC 65272 [facility], BIOPHYSIC 9 [facility]ALTH [facility] J AL CLINIC OF PROFILE W/[place] [address] [facility], 9 [facility] J UTERUS CLINIC OF LIMITED 1/> [place] FETUSES [facility] DOPPLER 90809 [facility], VELOCIMET 9 [facility]ALTH [facility] J RY [facility]IC OF UMBILICAL ARTERY [place] [facility] DOPPLER 55167 [facility], VELOCIMET 9 HEALTH [facility] J RY [facility] UMBILICAL ARTERY [place] [facility] [place] [address] HY[facility] BLOOD/URI 9 [facility] C ACID INC INC THROMBOPL 27366 [facility] ASTIN 9 [facility] TIME INC INC PARTIAL PLASMA/WH OLE BLOOD BASIC 73259 [facility] METABOLIC 9 [facility] PANEL INC INC CALCIUM TOTAL TRANSFERA 60803 [facility] SE 9 [facility] ASPARTATE INC INC AMINO AST SGOT TRANSFERA 77622 [facility] SE 9 [facility] ALANINE INC INC AMINO ALT SGPT 98164 [facility], BIOPHYSIC 9 [facility]ALTH [facility] AL CLINIC OF PROFILE W/O [place] NON-STRES PLLC S TESTING BLOOD 96077 [facility] COUNT 9 [facility] COMPLETE INC INC AUTO&[place] [address]183 [facility], UTERUS 9 [facility] TASHA J REAL TIME CLINIC OF F/U TRNSABDL [place] PER FETUS [facility] FIBRIN 27297 HY[facility] DGRADJ 9 [facility] PRODUCTS INC INC D-DIMER QUAL/SEMI LACI FIBRINOGE 93000 [facility] N 9 [facility] ACTIVITY INC INC PROTHROMB 43784 [facility] IN TIME 9 [facility] INC INC 46049 [facility] NONSTRESS 9 [facility] TEST INC INC URNLS DIP 15857 [facility] 9 [facility] STICK/TAB INC INC LET REAGENT AUTO MICROSCOP Y OBSERVATI 81010 KING CARIAS, ON/INPATI 9 ARETHA Andrade [facility] CARE 55 MINUTES DOPPLER 07615 [facility], VELOCIMET 9 HEALTH [facility]HA J RY CLINIC OF UMBILICAL ARTERY [place] [facility] BLD GLU A4253 [facility] TEST/REAG 9 PHARMACY PHARMACY T STRIPS #591 #591 HOME BLD GLU MON-50 [place] PREG 79359 [facility], UTERUS 9 HEALTH [facility]HA J REAL TIME CLINIC OF F/U TRNSABDL [place] PER FETUS PLLC 64805 [facility], BIOPHYSIC 9 HEALTH [facility] J AL CLINIC OF PROFILE W/O [place] NON-STRES [facility] S TESTING 71722 [facility], BIOPHYSIC 9 HEALTH [facility]HA J AL CLINIC OF PROFILE W/O [place] NON-STRES [facility] [place] P[place] [address]26 [facility], UTERUS 9 HEALTH [facility] J REAL TIME CLINIC OF F/U TRNSABDL [place] PER FETUS PLLC CUL BACT 65070 COMBINED COMBINED XCPT 9 PHYSICIAN PHYSICIAN URINE S LAB S LAB BLOOD/STO OL AEROBIC ISOL DOPPLER 43096 [facility], VELOCIMET 9 HEALTH [facility] J RY CLINIC OF UMBILICAL ARTERY [place] [facility] DOPPLER 36765 [facility], VELOCIMET 9 HEALTH [facility] J RY CLINIC OF UMBILICAL ARTERY [place] [facility] US PREG 05582 [facility], UTERUS 9 HEALTH [facility]HA J REAL TIME CLINIC OF F/U TRNSABDL [place] PER FETUS PLLC 48164 [facility], BIOPHYSIC 9 HEALTH [facility]HA J AL CLINIC OF PROFILE W/O [place] NON-STRES [facility] [place] 38183 KRAFT, UTERUS 9 FADI R REAL TIME DIAGNOSTI F/U CCENTER TRNSABDL PER FETUS CUL BACT 23990 COMBINED COMBINED XCPT 9 PHYSICIAN PHYSICIAN URINE S LAB S LAB BLOOD/STO OL AEROBIC ISOL ANTIBODY 29211 COMBINED COMBINED CHLAMYDIA 9 PHYSICIAN PHYSICIAN S LAB S LAB [place] PREG 89105 [facility] UTERUS 9 YAZDANISM YAZDANISM REAL TIME HOSP HOSP F/U TRNSABDL PER FETUS RADIOLOGI 57839 HYACINTH Willams 9 [facility] EXAMINATI INC INC ON CHEST SINGLE VIEW FRONTAL 80771 [facility], NONSTRESS 9 HEALTH TASHA J TEST CLINIC OF [facility] 75535 [facility], NONSTRESS 9 HEALTH [facility]HA J TEST CLINIC OF [facility] URNLS DIP 91366 HYACINTH HYACINTH 9 [facility] STICK/TAB INC INC LET REAGENT AUTO MICROSCOP Y [place] PREG 78871 [facility] UTERUS 9 YAZDANISM YAZDANISM REAL TIME HOSP HOSP F/U TRNSABDL PER FETUS BLD GLU A4253 [facility] TEST/REAG 8 PHARMACY PHARMACY T STRIPS #591 #591 HOME BLD GLU MON-50 DIAB G0109 [facility] SELF-MGMT 8 YAZDANISM YAZDANISM TRN [facility] HOSP GROUP SESSION PER 30 MIN US PREG 34338 [facility] UTERUS 8 YAZDANISM YAZDANISM W/DETAIL HOSP HOSP [place] 1[address] [place] [address] [facility] ESTRIOL 8 Equigerminal [facility] INC ALPHA-FET 88552 [facility] OF OPROTEIN 8 [facility] SERUM URNLS DIP 69852 DHS/CO HY[facility] HEALTH CO HEALTH STICK/TAB [facility]AL CENTER LET RGNT BANK ACCT NON-AUTO W/O MICRSCP GONADOTRO 60046 [facility] OF PIN 8 [facility] CHORIONIC QUANTITAT ROSS URNLS DIP 91322 DHS/CO HYACINTH 8 HEALTH CO HEALTH STICK/TAB [facility]ENTRAL CENTER LET RGNT BANK ACCT NON-AUTO W/O MICRSCP GLUC BLD 58153 DHS/CO HY[facility]TH GLUC MNTR 8 [facility] DEV [facility] CLEARED BANK ACCT FDA SPEC HOME USE CYTP 01299 DHS/CO HY[facility] CERV/VAG 8 [facility] AUTO THIN [facility] LAYER BANK ACCT PREP MNL SCREEN ANTIBODY 70537 [facility] SCREEN [address] [place] [address] RBC EACH SERUM TECHNIQUE BLOOD 61920 [facility] TYPING 8 [facility] SEROLOGIC ABO BLOOD 92072 [facility] TYPING [address] [place] [address] SEROLOGIC RH (D) SYPHILIS 52257 [facility]/CO [facility] TEST [address] [place] [address] NON-TREPO [facility] NEMAL BANK ACCT ANTIBODY QUAL COLLECTIO 71056 DHS/CO HY[facility] N VENOUS [address] [place] [address] BLOOD [facility] VENIPUNCT BANK ACCT URE IADNA 48707 [facility]/CO HYACINTH NEISSERIA [address] [place] [address] GONORRHOE BANK ACCT AE AMPLIFIED PROBE TQ ANTIBODY 15774 [facility]/CO HYACINTH RUBELLA [address] [place] [address] BANK ACCT IADNA 77704 [facility] HY[facility]TH CHLAMYDIA [address] [place] [address] TRACHOMAT BANK [place] [address] [facility]/CO HYACINTH HEPATITIS [address] [place] [address] B [facility] SURFACE BANK ACCT ANTIGEN GONADOTRO 87312 HYACINTH [facility] PIN 8 [facility] CHORIONIC INC [place] PREG 81836 [facility] UTERUS 8 [facility] REAL TIME INC INC W/IMAGE DCMTN TRANSVAG BLOOD 03819 [facility] COUNT 8 [facility] COMPLETE INC INC AUTO&AUTO DIFRNTL WBC CULTURE 63546 HYACINTH GARCIAON BACTERIAL 8 [facility] INC INC QUANTTATI VE COLONY COUNT URINE URNLS DIP 76663 [facility] 8 [facility] STICK/TAB INC INC LET REAGENT AUTO MICROSCOP Y URNLS DIP 55590 HY[facility]TH HYACINTH 8 [facility] STICK/TAB INC INC [place] [address] HYACINTH GARCIAON AMYLASE 8 [facility] INC INC CULTURE 93135 HYACINTH CL[facility]SO BACTERIAL 8 [facility] INC INC QUANTTATI VE COLONY COUNT URINE COMPREHEN 93499 [facility] SIVE 8 [facility] METABOLIC INC INC PANEL BLOOD 68509 [facility] COUNT 8 [facility] COMPLETE INC INC AUTO&[place] 76691 ROOSEVELTY GINGER, UTERUS 8 MEDICAL SHANELLE REAL TIME IMAGING W/IMAGE ASSOCIATE DCMTN S TRANSVAG URINE 87866 [facility] 8 [facility] TEST INC INC [place] [address] [facility] LIPASE 8 [facility] H[facility] INC INC Encounters Encounter Start End Date Code Location Performer Type Date OFFICE 76230 [facility] 7 7 [facility] T [facility]IS[facility], 25 P MINUTES OFFICE 32941 JAQUELIN VILLEGAS OUTPATIEN 7 7 N FAMILY T VISIT CHIROPRAC 10 T MINUTES OFFICE 23675 [place] [facility] OUTPATIEN 6 6 DIABETIC T VISIT CENTER, 15 P MINUTES HOSPITAL [facility] - 6 6 [facility] OUTPATIEN INC T OFFICE 66337 [facility] JEANINE OUTPATIEN 6 6 PHYSICIAN T VISIT S GROUP 25 MINUTES OFFICE 16209 [place] [facility] OUTPATIEN 6 6 DIABETIC T VISIT CENTER, 25 P MINUTES OFFICE 34582 [facility]LYA DOBSON OUTPATIEN 6 6 [facility] - 6 6 [facility] OUTPATIEN INC T OFFICE 82638 [place] [facility] OUTPATIEN 6 6 [facility] T VISIT CENTER, 25 P MINUTES OFFICE 94986 [place] [facility] OUTPATIEN 6 6 DIABETIC T VISIT 5 CENTER, MINUTES P OFFICE 62352 JAQUELIN VILLEGAS OUTPATIEN 6 6 N FAMILY RANDY T VISIT CHIROPRAC 10 T MINUTES OFFICE 38165 [facility] DOBSON OUTPATIEN 6 6 [facility] 15 MINUTES OFFICE 30095 [facility] LARA OUTPATIEN 6 6 PHYSICIAN DANIKA T VISIT S GROUP 15 MINUTES OFFICE 50911 [facility] DOBSON OUTPATIEN 6 6 [facility] 15 MINUTES OFFICE 38953 [facility] [facility] OUTPATIEN 6 6 DIABETIC T VISIT CENTER, 15 P MINUTES EMERGENCY 37570 JUSTINA SANCHEZ 5 5 [facility]YSIC[facility] DEPARTMEN S, PLLC T VISIT HIGH/URGE NT SEVERITY OFFICE 86392 [facility] DOBSON OUTPATIEN 5 5 [facility] 15 MINUTES OFFICE 26311 LEODANSARAI VILLEGAS OUTPATIEN 5 5 N FAMILY RANDY T VISIT CHIROPRAC 10 T MINUTES OFFICE 14708 [place] [facility] OUTPATIEN 5 5 DIABETIC T VISIT CENTER, 25 P MINUTES OFFICE 86304 [facility] LARA OUTPATIEN 5 5 PHYSICIAN DANIKA T VISIT S GROUP 15 MINUTES EMERGENCY 92911 [facility] 5 5 [facility] DEPARTMEN INC T VISIT LIMITED/M INOR PROB EMERGENCY 87660 JUSTINA TELLEZ 5 5 PHYSICIAN DEPARTMEN S, PLLC T VISIT MODERATE SEVERITY [facility]OSP[facility] - 5 5 [facility] - 5 5 [facility] - 5 5 [facility] OUT[facility] INC T EMERGENCY 21731 JUSTINA SOLORZANO 5 5 PHYSICIAN ANNA DEPARTMEN S, PLLC T VISIT HIGH/URGE NT SEVERITY EMERGENCY 68321 [facility] 5 5 [facility] DEPARTMEN INC T VISIT MODERATE SEVERITY [facility]OSP[facility] - 5 5 [facility] T [facility] - 5 5 [facility] - 5 5 [facility] INC T OFFICE 30836 [facility] PEDROZA OUTPATIEN 5 5 FOOT & N SHABNAM T VISIT ANKLE CE 15 MINUTES OFFICE 40503 [facility]A DOBSON OUTPATIEN 5 5 [facility] T [facility] 15 MINUTES OFFICE 73028 [facility] FOY OUTPATIEN 5 5 DIABETIC R TAR T VISIT CENTER 25 MINUTES EMERGENCY 93893 JUSTINA SOLORZANO 5 5 PHYSICIAN ANNA DEPARTMEN S, PLLC T VISIT MODERATE SEVERITY OFFICE 77649 [facility] SCHULSTAD OUTPATIEN 5 5 PHYSICIAN CAM T VISIT S GROUP 10 MINUTES HOSPITAL HYACINTH - 5 5 [facility] OUTPATIEN INC T OFFICE 55298 [facility] OJEDA OUTPATIEN 5 5 PHYSICIAN MARGOTH T VISIT S GROUP 15 MINUTES OFFICE 89738 [facility] SCHULSTAD OUTPATIEN 5 5 PHYSICIAN CAM T VISIT S GROUP 15 MINUTES EMERGENCY 27411 JUSTINA SOLORZANO 5 5 PHYSICIAN ANNA DEPARTMEN S, PLLC T VISIT HIGH/URGE NT SEVERITY OFFICE 09574 [facility] OJEDA OUTPATIEN 5 5 PHYSICIAN MARGOTH T VISIT S GROUP 15 MINUTES OFFICE 48965 [facility] OJEDA OUTPATIEN 5 5 PHYSICIAN MARGOTH T NEW 20 S GROUP MINUTES HOSPITAL HYACINTH - 5 5 [facility] OUTPATIEN INC T EMERGENCY 60181 JUSTINA ULLOA 5 5 PHYSICIAN LINARES DEPARTMEN S, PLLC T VISIT HIGH/URGE NT SEVERITY OFFICE 97552 [facility] DOBSON OUTPATIEN 5 5 [facility] - 5 5 [facility] INC T OFFICE 83225 [facility] COBIAN SOB OUTPATIEN 5 5 DIABETIC T VISIT CENTER, 25 P MINUTES OFFICE 98215 [facility] YMAN OUTPATIEN 5 5 PHYSICIAN EUG T VISIT S GROUP 10 MINUTES OFFICE 40637 [facility] JEANINE OUTPATIEN 5 5 PHYSICIAN ANNA T VISIT S GROUP 15 MINUTES OFFICE 49883 [facility] JIMENEZRON OUTPATIEN 5 5 [facility] T VISIT HOSPITAL 15 MINUTES OFFICE 49082 [facility] COBIAN SOB OUTPATIEN 5 5 DIABETIC T VISIT CENTER [address] PEDROZA OUTPATIEN 5 5 DANIEL Leon SHABNAM T VISIT MIRTA 15 DPM PSC MINUTES OFFICE 24964 [facility]A DOBSON OUTPATIEN 5 5 [facility]ACIN[facility] - 5 5 [facility]PATI[facility] T HOSPITAL CENTRAL - 5 5 [facility] T OFFICE 21628 [facility] OUTPATIEN 5 5 HEALTH AYAD T VISIT MEDICAL 40 GROUP MINUTES OFFICE 18792 JAQUELIN VILLEGAS OUTPATIEN 5 5 N FAMILY RANDY T VISIT CHIROPRAC 10 T MINUTES OFFICE 34342 [facility] LARA OUTPATIEN 4 4 PHYSICIAN DANIKA T VISIT S GROUP 15 MINUTES OFFICE 92439 OLYA DOBSON OUTPATIEN 4 4 [facility] T [facility] 15 MINUTES OFFICE 28081 [facility] J[facility] TRA OUTPATIEN 4 4 [place] T VISIT ORTHOPAED 15 [facility] MINUTES OFFICE 90775 [facility] CONSULTAT 4 4 NEUROLOGY AYAD ION NEW/ESTAB CONSULTAN PATIENT T 60 MIN OFFICE 92410 [facility] OUTPATIEN 4 4 PHYSICIAN T VISIT S GROUP 25 MINUTES OFFICE 60693 OLYA DOBSON [facility]PATIEN 4 4 [facility] 15 MINUTES OFFICE 92339 [facility]ON[facility] TRA OUTPATIEN 4 4 [place] T VISIT [facility]OPAED [facility] MINUTES OFFICE 97281 OLYA DOBSON OUTPATIEN 4 4 [facility] T VISIT 15 MINUTES EMERGENCY 56318 [facility] 4 4 TRUDI DEPARTMEN EMERGENCY T VISIT PHYS HIGH/URGE NT SEVERITY OFFICE 81414 [place] RICHARDSO OUTPATIEN 4 4 FOOT & N SHABNAM T VISIT ANKLE CE 15 MINUTES OFFICE 77727 JONES TRA JONES TRA OUTPATIEN 4 4 T VISIT 15 MINUTES OFFICE 69003 [place] [facility] OUTPATIEN 4 4 FOOT & N SHABNAM T NEW 30 ANKLE CE MINUTES OFFICE 08614 OLYA LYNNPATIEN 4 4 [facility] T [facility]IT 15 MINUTES OFFICE 03040 BAKARI PAL 4 4 RANDY RANDY T VISIT 10 MINUTES EMERGENCY 15570 JEANINE RICHARDSONEY 4 4 ANNA ANNA DEPARTMEN T VISIT HIGH/URGE NT SEVERITY OFFICE 16537 OLYA PAL 4 4 [facility] T VISIT 15 MINUTES OFFICE 79604 BAKARI PAL 4 4 RANDY RANDY T VISIT 10 MINUTES OFFICE 35858 BAKARI PAL 4 4 RANDY RANDY T VISIT 10 MINUTES OFFICE 41679 [facility] PAL 4 4 DANKIA DANIKA T VISIT 15 MINUTES [facility]OSP[facility] - 4 4 [facility] T OFFICE 32647 BAKARI LYNNPATINICHOLAS 4 4 RANDY RANDY T NEW 30 MINUTES OFFICE 37739 OLYA PAL 4 4 [facility] T VISIT 15 MINUTES OFFICE 95041 OLYA DOBSON OUTPATIINCHOLAS 4 4 [facility] T VISIT 15 MINUTES OFFICE 74256 OLYA OLYA OUTPATIEN 4 4 [facility] T VISIT 15 MINUTES PERIODIC 49951 [facility] PREVENTIV 4 4 DANIKA DANIKA E MED EST PATIENT 18-39 YRS OFFICE 82170 OLYA DOBSON OUTPATIEN 3 3 [facility] T VISIT 15 MINUTES EMERGENCY 12899 PARISH NESBITT 3 3 DEPARTMEN T VISIT MODERATE SEVERITY OFFICE 88142 ADEOLA ANT ADEOLA ANT OUTPATIEN 3 3 T VISIT 15 MINUTES OFFICE 57608 OLYA DOBSON OUTPATINICHOLAS 3 3 [facility] T VISIT 15 MINUTES EMERGENCY 03521 JEANINE SOLORZANO 3 3 ANNA ANNA DEPARTMEN T VISIT HIGH/URGE NT SEVERITY [facility] 3 3 [facility] T OFFICE 17696 ADEOLA ANT ADEOLA ANT OUTPATIEN 3 3 T VISIT 25 MINUTES OFFICE 24967 WILMER MUÑIZ OUTPATIEN 3 3 T VISIT 25 MINUTES [facility]OSP[facility] - 3 3 [facility] T EMERGENCY 14837 [facility] 3 3 [facility] DEPARTMEN INC T VISIT MODERATE SEVERITY EMERGENCY 35887 LUZ ESCOBAR DEPT 3 3 III FIDE III FIDE VISIT HIGH SEVERITY& THREAT FUN [facility]OSPITAL [facility] - 3 3 [facility] T OFFICE 85157 OLYA PAL 3 3 [facility] T VISIT 15 MINUTES OFFICE 75338 OLYA PAL 3 3 [facility] T VISIT 15 MINUTES OFFICE 31871 WILMER MUÑIZ OUTPATIEN 3 3 T VISIT 15 MINUTES HOSPITAL [facility] - 3 3 [facility] T OFFICE 88061 ADEOLA VILLALTA ADEOLA ANT OUTPATIEN 3 3 T VISIT 25 MINUTES EMERGENCY 12154 SHAUN RASHID DEPT 3 3 EMERGENCY FIDE VISIT SERVICES HIGH SEVERITY& THREAT FUNCJ EMERGENCY 13176 [facility]IN[facility] 3 3 [facility] DEPARTMEN INC T VISIT LOW/MODER SEVERITY [facility] - 3 3 [facility] T OFFICE 56301 WILMER MUÑIZ OUTPATIEN 2 2 T VISIT 15 MINUTES OFFICE 03334 OLYA DOBSON OUTPATIEN 2 2 [facility] T VISIT 15 MINUTES OFFICE 09192 OLYA DOBSON OUTPATIEN 2 2 [facility] T VISIT 15 MINUTES OFFICE 70086 ADEOLA AMBAR ADEOLA ANT OUTPATIEN 2 2 T VISIT 15 MINUTES [facility] 73687 MARCO LARA PREVENTIV 2 2 DANIKA DANIKA E MED EST PATIENT 18-39 YRS OFFICE 95297 [facility] 2 2 [facility] 10 MINUTES [facility] - 2 2 [facility] T OFFICE 96407 OLYA DOBSON OUTPATIEN 2 2 [facility] T VISIT 15 MINUTES OFFICE 21604 WILMER MUÑIZ OUTPATIEN 2 2 T VISIT 25 MINUTES OFFICE 08641 [facility]ARA OUTPATIEN 2 2 DANIKA DANIKA T VISIT 15 MINUTES HOSPITAL [facility] - 2 2 [facility] T OFFICE 99911 OLYA DOBSON OUTPATIEN 2 2 [facility] T VISIT 15 MINUTES OFFICE 09454 COMMONMARCELINA RICH II OUTPATIEN 2 2 [facility] NEW 30 AND REHA MINUTES OFFICE 54554 OLYA DOBSON OUTPATIEN 2 2 [facility] T VISIT 15 MINUTES OFFICE 32963 [facility] OUTPATIEN 2 2 DANIKA DANIKA T VISIT 25 MINUTES HOSP[facility] - 2 2 [facility] T OFFICE 70481 WILMER GUILLEN ANTONINO OUTPATIEN 2 2 T NEW 45 MINUTES OFFICE 43804 ADEOLA ANT ADEOLA ANT OUTPATIEN 2 2 T VISIT 25 MINUTES OFFICE 32830 SAMARIA MERA LANI OUTPATIEN 2 2 T NEW 30 MINUTES OFFICE 41833 WHDYLAN LANI WHANG LANI CONSULTAT 2 2 ION NEW/ESTAB PATIENT 40 MIN OFFICE 86826 JONES TRA JONES TRA OUTPATIEN 2 2 T VISIT 15 MINUTES OFFICE 50002 JONES TRA JONES TRA OUTPATIEN 2 2 T VISIT 10 MINUTES OFFICE 52260 JONES TRA JONES TRA OUTPATIEN 2 2 T VISIT 15 MINUTES OFFICE 60753 OLYA DOBSON OUTPATIEN 2 2 [facility]ES [facility] - 2 2 [facility] T OFFICE 41089 [facility] OUTPATIEN 2 2 T VISIT 15 MINUTES OFFICE 77199 ADEOLA ANT ADEOLA ANT OUTPATIEN 2 2 T VISIT 25 MINUTES OFFICE 37623 [facility] OUTPATIEN 2 2 T VISIT 15 MINUTES EMERGENCY 41543 [facility]ACINTH 2 2 [facility] DEPARTMEN INC T VISIT MODERATE SEVERITY EMERGENCY 95696 SHAUN CORLEY BAB DEPT 2 2 EMERGENCY VISIT SERVICES HIGH SEVERITY& THREAT [facility] HYACINTH - 2 2 [facility] OUTPATI[facility] INC T OFFICE 31897 ADEOLA ANT ADEOLA ANT OUTPATIEN 2 2 T NEW 45 MINUTES OFFICE 85763 JEANINE SOLORZANO OUTPATIEN 2 2 ANNA ANNA T NEW 20 MINUTES OFFICE 31640 [facility] 2 2 T VISIT 15 MINUTES HOSPITAL [facility] - 2 2 [facility] T OFFICE 71940 [facility] OUTPATIEN 2 2 [facility]ITAL MINUTES P OFFICE 07491 OLYA DOBSON OUTPATIEN 1 1 [facility] T VISIT 15 MINUTES OFFICE 74254 [facility] OUTPATI[facility] 1 1 T VISIT 15 MINUTES OFFICE 57992 [facility] OUTPATIEN 1 1 T VISIT 15 MINUTES EMERGENCY 01971 [facility]ACIN[facility] 1 1 [facility] DEPARTMEN INC T VISIT MODERATE SEVERITY HOSPITAL [facility]AC[facility] - 1 1 [facility] T EMERGENCY 08663 LIANG MARGOTH LIANG MARGOTH 1 1 DEPARTMEN T VISIT HIGH/URGE NT SEVERITY OFFICE 73577 [facility] OUTPATIEN 1 1 T VISIT 15 MINUTES OFFICE 18934 [facility] OUTPATIEN 1 1 T VISIT 15 MINUTES OFFICE 69647 [facility] OUTPATIEN 1 1 T VISIT 15 MINUTES OFFICE 97765 [facility] OUTPATIEN 1 1 T VISIT 15 MINUTES OFFICE 05825 OLYA LYNNPATIEN 1 1 [facility] T VISIT 15 MINUTES OFFICE 21638 [facility] JARVIS OUTPATIEN 1 1 [place] [facility] T VISIT ORTHOPAED [facility] MINUTES OFFICE 90844 [facility]TR[facility] JARVIS CONSULTAT 1 1 [place] ION ORTHOPAED NEW/ESTAB [facility] PATIENT 40 MIN HOSPITAL [facility] - 1 1 [facility] OUTPATIEN [facility] T EMERGENCY 31712 SHAUN PEREYRA 1 1 EMERGENCY [facility] SERVICES T VISIT HIGH/URGE NT SEVERITY EMERGENCY 23887 HYACINTH 1 1 [facility] T VISIT MODERATE [facility]VERITY HOSPITAL HYACINTH - 1 1 [facility] OFF[facility] 28728 [facility]PAT[facility] 1 1 HEALTH DANIKA T VISIT CLINIC OF 15 ROLAND MINUTES EMERGENCY 26107 SHAUN ESCOBAR 1 1 EMERGENCY III [facility] T VISIT HIGH/URGE NT SEVERITY EMERGENCY 02939 HYACINTH 1 1 [facility] INC T VISIT LOW/MODER SEVERITY HOSPITAL HYACINTH - 1 1 [facility] OFF[facility] 22958 [facility] 1 1 [facility]ALTH DANIKA T VISIT CLINIC OF 15 ROLAND MINUTES HOSPITAL HYACINTH [facility] 1 1 [facility] OUTPATIEN [facility] HOSPITAL HYACINTH [facility] 1 1 [facility] OUTPATIEN [facility] T OFFICE 31170 OLYA DOBSON OUTPATIEN 1 1 [facility] T NEW 30 MINUTES OFFICE 61010 [facility] OUTPATI[facility] 1 1 HEALTH DANIKA T VISIT CLINIC OF 15 [place] MINUTES [facility] 18479 [facility] PREVENTIV 0 0 HEALTH DANIKA E MED EST CLINIC OF PATIENT ROLAND 18-39 YRS EMERGENCY 43229 [facility] LOW/MODER SEVERITY [facility]ACINTH - 0 0 [facility] OUTPATIEN [facility] EMERGENCY 67114 SHAUN MARCO ANTONIONETTIE 0 0 EMERGENCY III, DEPARTMEN SERVICES LESLEY T VISIT HIGH/URGE ASSOCIATE NT S SEVERITY OFFICE 76214 [facility], OUTPATIEN 9 9 [facility]ALTH T[facility]HA J T VISIT CLINIC OF 15 MINUTES [facility] EMERGENCY 68539 HYACINTH 9 9 [facility] T VISIT LIMITED/M INOR PROB EMERGENCY 39359 SHAUN MARY, 9 9 EMERGENCY GOSIA R DEPARTMEN SERVICES T VISIT HIGH/URGE ASSOCIATE NT S [facility] HYACINTH - 9 9 [facility] OFF[facility] 98274 [facility], OUTPATIEN 9 9 [facility] J T VISIT CLINIC OF 25 MINUTES [facility] HYACINTH - 9 9 [facility] OFF[facility] 72059 [facility] OUTPATIEN 9 9 [facility] J T VISIT CLINIC OF 15 MINUTES [facility] HYACINTH - 9 9 [facility] HYACINTH [facility] 9 9 [facility] 9 9 [facility] HOSPITAL CENTRAL - 9 9 [facility]ISM OUTPATIEN [facility] T OFFICE 72039 [facility] OUTPATIEN 9 9 [facility] J T VISIT CLINIC OF 15 MINUTES [facility] OFFICE 53987 [facility], OUTPATIEN 9 9 [facility] J T VISIT CLINIC OF 15 MINUTES [facility] CENTRAL - 9 9 YAZDANISM OUTPATIEN [facility] T OFFICE 16561 MEET, CONSULTAT 9 9 SHANELLE ION DIAGNOSTI A NEW/ESTAB CCENTER PATIENT 15 MIN OFFICE 55744 ARIADNA ROSENTHAL OUTPATIEN 9 9 Kaylie DOMINGUEZ JR, J V T VISIT 15 MINUTES HOSPITAL HYACINTH - 9 9 [facility] OUT[facility] INC T EMERGENCY 32311 MILLERCRISTINA SOLORZANO, 9 9 [facility] T VISIT ON MODERATE SEVERITY OFFICE 35977 [facility], OUTPATIEN 9 9 [facility] J T VISIT CLINIC OF 15 MINUTES [facility] HYACINTH - 9 9 [facility] OUTPATIEN [facility] T OFFICE 62199 [facility] OUTPATIEN 9 9 [facility] J T VISIT CLINIC OF 15 MINUTES [facility] OFFICE 67110 [facility], OUTPATIEN 9 9 [facility] J T VISIT CLINIC OF 15 MINUTES [facility] HYACINTH - 9 9 [facility] OUTPATIEN [facility] T EMERGENCY 16080 HYACINTH 9 9 [facility] T VISIT LIMITED/M INOR PROB EMERGENCY 42437 ANGELA MAL, 9 9 [facility] T VISIT ON HIGH/URGE NT SEVERITY HOSPITAL HYACINTH - 9 9 [facility] OUTPATIEN INC T HOSPITAL CENTRAL - 9 9 [facility] OUTPATIEN HOSP T OFFICE 58215 ARIADNA ROSENTHAL OUTPATIEN 8 8 Kaylie DOMINGUEZ JR, J V T VISIT 15 MINUTES HOSPITAL HYACINTH - 8 8 [facility] INC T EMERGENCY 38301 HYACINTH 8 8 [facility] DEPARTMEN INC T VISIT LIMITED/M INOR PROB HOSPITAL CENTRAL - 8 8 [facility] OUTPATIEN HOSP T OFFICE 92365 [facility] OUT[facility] 8 8 [facility] T VISIT [facility] 10 BANK ACCT MINUTES OFFICE 35280 [facility]PATIEN 8 8 [facility] T NEW 30 [facility] MINUTES [facility] ACCT EMERGENCY 08271 HYACINTH 8 8 [facility] DEPARTMEN INC T VISIT MODERATE SEVERITY [facility]OSPITAL HYACIN[facility] - 8 8 [facility] INC T [facility]OSPITAL HYACINTH - 8 8 [facility] OUT[facility]IEN INC T EMERGENCY 12355 [facility]IN[facility] 8 8 [facility] DEPARTMEN INC T VISIT HIGH/URGE NT SEVERITY
--- OUTSIDE RECORDS SUMMARY | 2016-08-24 21:02 | External Medical Summary Rpt ---
Author Author , Organization [employer] Address Unknown Phone Unavailable Care Team Providers Care Pyridine Recovery Operator Name Role Phone OAKES LC, OAKES Unavailable Unavailable LC [employer] Unavailable Unavailable INC, [employer] AMJAD, AMJAD Unavailable Unavailable AMJAD SOB, AMJAD SOB Unavailable Unavailable ARNOLD, ARNOLD Unavailable Unavailable ARNOLD MERCY, ARNOLD Unavailable Unavailable MERCY ARNOLD MERCY, ARNOLD Unavailable Unavailable [facility] DELGADO LAURA, DELGADO LAURA Unavailable Unavailable [facility] Unavailable Unavailable MEDICAL GROUP, [facility] FADI KRAFT, Unavailable Unavailable FADI KRAFT, BEJYOTSNA Unavailable Unavailable ROCIO BESSON MELINDA, BESSON Unavailable Unavailable MELINDA ADEOLA ANT, ADEOLA ANT Unavailable Unavailable ADEOLA ANT, ADEOLA ANT Unavailable Unavailable [facility] Unavailable Unavailable [facility] Kaylie ROSENTHAL JR, V, Unavailable Unavailable Kaylie ROSENTHAL JR, V [facility], Unavailable Unavailable [facility] [place] Unavailable Unavailable [facility] [...] PHYSICIANS Unavailable Unavailable LAB, [facility] Unavailable Unavailable AND REHA, [facility] ANESTH OF Unavailable Unavailable THE BLUE, [facility] ANESTH OF THE BLUE WILFRID PAT, [...] DANIEL S, Unavailable Unavailable JEANINE, DANIEL S [facility] Unavailable Unavailable CHIROPRACT, [facility] MAL, RONDAL E, Unavailable Unavailable MAL, RONDAL E KIRK ANNA, KIRK ANNA Unavailable Unavailable LAING MARGOTH, LIANG MARGOTH Unavailable Unavailable LIANG MARGOTH, LIANG MARGOTH Unavailable Unavailable KAITLIN ADRIANA, KAITLIN Unavailable Unavailable GOSIA FLOREZ, Unavailable Unavailable GOSIA HERNANDEZ GERALD R, Unavailable Unavailable [facility] Unavailable Unavailable [place], [facility] Unavailable Unavailable INC, [facility] Unavailable [facility]available HOSPITAL, [facility] Unavailable Unavailable HOSPITAL P, [facility] P [facility], Unavailable Unavailable [facility] ETHAN ETHAN Unavailable Unavailable ETHAN DARRON, ETHAN Unavailable Unavailable DARRON JONES TRA, JONES TRA Unavailable Unavailable JONES TRA, JONES TRA Unavailable Unavailable HILARIO II VINCENT, HILARIO Unavailable Unavailable II VINCENT [facility] Unavailable Unavailable IM[facility]ING [facility], [facility], Unavailable Unavailable [facility], [facility]available Unavailable [facility] CONCEPCION JR DWI, CONCEPCION Unavailable Unavailable JR DWI [facility] Unavailable Unavailable CENTER, [facility] Unavailable Unavailable CENTER, P, [facility], P [facility] Unavailable Unavailable [facility], [facility] SANABRIA MERCY, SANABRIA Unavailable Unavailable [facility] LAWRENCE HAM, LAWRENCE HAM Unavailable Unavailable [facility]WRENCE HAM, LAWRECNE HAM Unavailable Unavailable [facility], Unavailable Unavailable [facility], Unavailable Unavailable [facility] Unavailable Unavailable SERVICES, [facility] RAM GRACE, RAM Unavailable Unavailable [...] ROL BAKARI, BAKARI Unavailable Unavailable BAKARI PADILLA, BAKARI Unavailable Unavailable RANDY PADILLA, BAKARI Unavailable Unavailable RANDY [facility] Unavailable Unavailable #591, [facility] Unavailable Unavailable #591, [facility] # Unavailable Unavailable [id number], [facility] # [id number] WEHRMAN III FIDE, Unavailable Unavailable WEHRMAN III [...] Diagnosis DOS Provider Status [id number] INTERVERTEB 06-27-2016 [facility] RAL DISC FAMILY D/O CHIROPRACT W/RADICULOP ATHY LS RGN M5137 OTH 06-27-2016 [facility] INTERVERTEB FAMILY RAL DISC CHIROPRACT DEGEN LUMBOSACRAL REGION M5387 OTHER 06-27-2016 [facility] SPECIFIED FAMILY DORSOPATHIE CHIROPRACT S LUMBOSACRAL REGION U00927 MUSCLE 06-27-2016 [facility] SPASM OF FAMILY BACK CHIROPRACT M9902 SEGMENTAL & 06-27-2016 [facility] SOMATIC FAMILY DYSFUNCTION [facility] THORACIC REGION M9903 SEGMENTAL & 06-27-2016 [facility] SOMATIC FAMILY DYSFUNCTION [facility]IR[facility]CT OF LUMBAR REGION M9904 SEGMENTAL & 06-27-2016 [facility] SOMATIC FAMILY DYSFUNCTION CHIROPRACT OF SACRAL REGION E119 TYPE 2 05-06-2016 [facility], P WITHOUT COMPLICATIO NS E669 OBESITY 05-06-2016 [facility], P R000 TACHYCARDIA 05-06-2016 [facility], P J029 ACUTE 01-21-2016 [facility] PHARYNGITIS UNSPECIFIED J069 ACUTE UPPER 01-21-2016 [facility] RESPIRATORY INFECTION UNSPECIFIED J329 CHRONIC 01-21-2016 [facility] SINUSITIS UNSPECIFIED Z862 PERSONAL HX 01-21-2016 OLYA DZ BLOOD&BLOOD FORM ORGN IMMUNE [facility] M9901 SEGMENTAL & 01-11-2016 [facility] SOMATIC FAMILY DYSFUNCTION [facility]IR[facility]CT CERVICAL REGION B370 CANDIDAL 12-31-2015 [facility] STOMATITIS PHYSICIANS GROUP B3781 CANDIDAL 12-31-2015 [facility] ESOPHAGITIS PHYSICIANS GROUP B9789 OT VIRAL 12-31-2015 [facility] AGENT CAUSE PHYSICIANS DISEASES GROUP CLASSIFIED ELSW J0190 ACUTE 12-19-2015 [facility] SINUSITIS UNSPECIFIED H109 UNSPECIFIED 10-31-2015 [facility] CONJUNCTIVI TIS J209 ACUTE 10-31-2015 [facility] BRONCHITIS UNSPECIFIED H8109 MENIERES 08-04-2015 [facility] DISEASE UNSPECIFIED EAR N830 FOLLICULAR 06-10-2015 [facility] CYST OF PHYSICIANS OVARY GROUP R102 PELVIC AND 06-10-2015 [facility] PERINEAL PHYSICIANS PAIN GROUP Z6843 BODY MASS 06-10-2015 [facility] INDEX BMI PHYSICIANS 50-59.9 GROUP ADULT N926 IRREGULAR 05-11-2015 [facility] MENSTRUATIO PHYSICIANS N GROUP UNSPECIFIED G4700 INSOMNIA 2015 [facility] UNSPECIFIED E1121 TYPE 2 05-03-2015 [facility] P W/DIABETIC NEPHROPATHY E1165 TYPE 2 05-03-2015 [facility] [place]CEM [place] R0602 SHORTNESS 05-03-2015 [facility] Z720 TOBACCO USE 05-03-2015 [facility] P H34284 PAIN IN 02-07-2015 [facility] LEFT ANKLE PHYSICIANS, PLLC B42467 PAIN IN 02-07-2015 [place] [facility] [id number] UNSPECIFIED 02-07-2015 [facility] SPRAIN UNS PHYSICIANS, TOES PLLC INITIAL ENCOUNTER B379 CANDIDIASIS 02-05-2015 OLYA MADRID UNSPECIFIED M9985 OTHER 01-08-2015 [facility] BIOMECHANIC FAMILY AL LESIONS CHIROPRACT OF PELVIC REGION Z09 ENC F/U 12-30-2014 [facility] EXAM AFTR PHYSICIANS CMPL TX OTH GROUP THAN IZABELLA NEOPLSM Z3009 ENCOUNTER 12-30-2014 [facility] 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 Z6842 BODY MASS 12-30-2014 [facility] INDEX BMI PHYSICIANS 45.0-49.9 GROUP ADULT E089 DIABETES 12-28-2014 [facility] MELLITUS PHYSICIANS, D/T PLLC UNDERLYING COND W/O COMP R70285 UNSPECIFIED 12-28-2014 [facility] ASTHMA PHYSICIANS, WITH ACUTE PLLC EXACERBATIO N R05 COUGH 12-28-2014 [facility] O021 MISSED 12-16-2014 [facility] PHYSICIANS GROUP O034 INCOMPLETE 12-16-2014 [facility] SPONT[facility] W/O COMPLICATIO N Z3A00 WEEKS OF 12-16-2014 [facility] GESTATION ANESTH OF OF THE BLUE NOT SPECIFIED Z3A12 12 WEEKS 12-16-2014 [facility] GESTATION PHYSICIANS OF GROUP O200 THREATENED 12-15-2014 [facility] Z3A13 13 WEEKS 12-15-2014 [facility] GESTATION [facility] OF INC Z0100 ENCOUNTER 12-13-2014 [facility] EXAM EYES & GRE VISION W/O ABNORMAL FIND I10 ESSENTIAL 12-09-2014 [facility] HYPERTENSIO INC N O000 ABDOMINAL 12-09-2014 [facility] P14851 OTHER SPEC 12-09-2014 [facility] PHYSICIANS, RELATED PLLC COND 1ST TRIMESTER Z3480 ENC 11-25-2014 [facility]PER[facility]ION [facility] OT NORMAL INC PREG UNS TRIMESTER O0941 SUPERVISION 11-21-2014 [facility] PREG PHYSICIANS W/GRAND GROUP MULTIPARITY FIRST TRI C51121 SUPERVISION 11-21-2014 [facility] ELDERLY PHYSICIANS MULTIGRAVID GROUP A FIRST TRIMESTER O2611 LOW WEIGHT 11-21-2014 [facility] GAIN IN PHYSICIANS GROUP FIRST TRIMESTER 11072 DIAB 10-10-2014 [place] W/NEURO FOOT & MANIFESTS ANKLE CE TYPE II/UNS TYPE UNCNTRL 7295 PAIN IN 10-10-2014 [place] SOFT FOOT & TISSUES OF ANKLE CE LIMB 7823 EDEMA 10-10-2014 [place] [address] SPRAIN AND 10-10-2014 [place] STRAIN OF FOOT & UNSPECIFIED ANKLE CE SITE OF FOOT 4619 ACUTE 10-09-2014 ARNVICKEY [facility] SINUSITIS, UNSPECIFIED 4659 ACUTE URIS 10-09-2014 [facility] OF UNSPECIFIED SITE 4739 UNSPECIFIED 10-09-2014 [facility] SINUSITIS 49101 MORBID 10-03-2014 [place] [facility] V7791 SCREENING 10-03-2014 [place] [facility]IP[facility] DISORDERS [facility] 8260 CLOSED 09-24-2014 [facility] FRACTURE OF PHYSICIANS, ONE OR PLLC MORE PHALANGES OF FOOT 2113 BENIGN 09-18-2014 [facility] NEOPLASM OF PHYSICIANS COLON GROUP 52259 ABDOMINAL 09-11-2014 [facility] PAIN, LEFT PHYSICIANS LOWER GROUP QUADRANT 6259 UNSPEC 09-01-2014 [facility] SYMPTOM PHYSICIANS ASSOC GROUP W/FEMALE GENITAL ORGANS 18699 ABDOMINAL 09-01-2014 [facility] PAIN, PHYSICIANS UNSPECIFIED GROUP SITE 7202 SACROILIITI 08-28-2014 [facility] S NOT FAMILY ELSEWHERE CHIROPRACT CLASSIFIED 35608 DEGEN 08-28-2014 [facility] LUMBAR/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 CHIROPRACT INTERVERTEB RAL DISC 7243 SCIATICA 08-28-2014 [facility] CHIROPRACT 7393 NONALLOPATH 08-28-2014 [facility] IC LESION FAMILY OF LUMBAR CHIROPRACT REGION NEC 7394 NONALLOPATH 08-28-2014 [facility] IC LESION FAMILY OF SACRAL CHIROPRACT REGION NEC 49521 ABDOMINAL 08-26-2014 [facility] PAIN, PHYSICIANS GENERALIZED GROUP V7651 SPECIAL 08-26-2014 [facility] SCREENING PHYSICIANS FOR GROUP MALIGNANT NEOPLASMS COLON 14368 ABDOMINAL 08-23-2014 [facility] PAIN RIGHT PHYSICIANS, LOWER PLLC QUADRANT 4590 UNSPECIFIED 08-18-2014 [facility] HEMORRHAGE PHYSICIANS GROUP 44224 ABDOMINAL 08-18-2014 [facility] PAIN, PHYSICIANS EPIGASTRIC GROUP V7231 ROUTINE 08-13-2014 [facility]YN[facility] AL EXAMINATION V745 SCREENING 08-13-2014 [facility] EXAMINATION LLC FOR VENEREAL DISEASE V221 SUPERVISION 08-12-2014 [facility] OF OTHER [facility] NORMAL INC 5718 OTHER 08-10-2014 [place] [facility] NONALCOHOLI IMAGING ASS C LIVER DISEASE 87561 ABDOMINAL 08-10-2014 [facility] PAIN OTHER PHYSICIANS, SPECIFIED [facility] SITE 88973 DIAB W/O 07-05-2014 [facility] COMP TYPE [facility] II/UNS NOT INC STATED UNCNTRL 4660 ACUTE 07-05-2014 OLYA MADRID BRONCHITIS 1120 CANDIDIASIS 05-22-2014 [facility] OF MOUTH PHYSICIANS GROUP 5278 OTHER 05-15-2014 [facility] SPECIFIED PHYSICIANS DISEASES OF GROUP THE SALIVARY GLANDS 4610 ACUTE 05-06-2014 [facility] 50018 DIAB 03-28-2014 DR SANCHEZ W/JOSE KIRBY DPM MANIFESTS PSC TYPE II/UNS NOT UNCNTRL 02547 DIAB W/O 03-27-2014 [place] [facility] COMP TYPE CENTER II/UNS TYPE UNCNTRL 93147 OBESITY, 03-27-2014 [place] UNSPECIFIED DIABETIC CENTER V770 SCREENING 03-27-2014 [place] [facility] THYROID [facility] DISORDER [facility] 3829 UNSPECIFIED 03-07-2014 O[facility] MADRID OTITIS MEDIA V7612 OTHER 03-06-2014 [facility] SCREENING [facility] MAMMOGRAM INC 2774 DISORDERS 03-03-2014 [facility] BILIR[facility]IN [facility]OS[facility] EXCRETION 30169 CAUSALGIA 03-03-2014 [facility] 3569 UNSPEC 03-03-2014 [facility] HEREDIT&IDI [facility] OPATHIC HOSP PERIPHERAL NEUROPATHY 7242 LUMBAGO 03-03-2014 [facility] 7820 DISTURBANCE 03-03-2014 [facility] SKIN [facility] SENSATION HOS[facility] 00541 OTHER 03-03-2014 [facility] ABNORMAL [facility] GLUCOSE [facility]OSP 7906 OTHER 03-03-2014 [facility] ABNORMAL [facility] BLOOD [facility]OSP CHEMISTRY 6101 DIFFUSE 02-19-2014 [facility] CYSTIC PHYSICIANS MASTOPATHY GROUP 28815 MASTODYNIA 02-19-2014 [facility] PHYSICIANS GROUP 3574 POLYNEUROPA 01-02-2014 [facility] [place] THY OTHER ORTHOPAEDIC DISEASES S PLC CLASSIFIED ELSW 0803 DYSMENORRHE 12-31-2013 [facility] A PHYSICIANS GROUP 89843 UNSPECIFIED 12-25-2013 [facility] VAGINITIS PHYSICIANS AND GROUP VULVOVAGINI TIS 7881 DYSURIA 12-25-2013 [facility] PHYSICIANS GROUP 5110 PLEURISY 11-28-2013 OLYA MADRID WITHOUT MENTION EFFUS/CURRE NT TB 8460 SPRAIN AND 11-03-2013 [facility] STR[facility] OF N EMERGENCY LUMBOSACRAL PHYS E9288 OTHER 11-03-2013 [facility] ACCIDENT N EMERGENCY PHYS 7862 COUGH 11-02-2013 [facility] 7391 NONALLOPATH 10-14-2013 BAKARI RANDY IC LESION OF CERVICAL REGION NEC 7392 NONALLOPATH 10-14-2013 BAKARI RANDY IC LESION OF THORACIC REGION NEC 3559 MONONEURITI 09-19-2013 OLYA MADRID S OF UNSPECIFIED SITE 5789 UNSPECIFIED 09-10-2013 [facility] HEMORRHAGE OF GASTROINTES TINAL TRACT 6202 OTHER AND 09-10-2013 [place] UNSPECIFIED MEDICAL OVARIAN IMAGING ASS CYST 462 [...] 05-01-2013 [facility] OF EYES GRE AND VISION 07467 OTHER 04-23-2013 OLYA MADRID MALAISE AND FATIGUE V0481 NEED 03-18-2013 OLYA MADRID PROPHYLACTI C VACCINATION &INOCULATIO N FLU 9248 CONTUSION 02-05-2013 OLYA MADRID OF MULTIPLE SITES NEC 93862 SWELLING OF 02-04-2013 [facility] EDIS 61461 SPRAIN AND 02-04-2013 [facility] STRAIN OF UNSPECIFIED SITE OF WRIST 26899 CONTUSION 02-04-2013 [facility] LAZ OF HAND E9179 OTHER 02-04-2013 [facility] STRIKING EDIS AGAINST W/WO SUBSEQUENT FALL 5758 OTHER 01-16-2013 [facility] ANT SPECIFIED DISORDER OF GALLBLADDER 45539 ABDOMINAL 01-16-2013 [facility] ANT PAIN RIGHT UPPER QUADRANT 72719 UNS 11-29-2012 OLYA MADRID GASTRITIS&G ASTRODUODIT IS W/O MENTION HEMORR 5759 UNSPECIFIED 11-29-2012 OLYA MADRID DISORDER OF GALLBLADDER 632 MISSED 08-31-2012 LARA DANIKA 99648 NAUSEA 08-31-2012 GUILLEN ANTONINO ALONE 53920 UNSPEC 08-21-2012 [facility] HEMORRHAGE [facility] EARLY INC ANTEPARTUM 53423 OT ABN 08-19-2012 [facility] SHAPE/POSIT EDIS ION GRAVID UTERUS ANTEPARTUM 7871 HEARTBURN 04-18-2012 [facility] ANT 97440 ASTHMA, 03-18-2012 [facility] UNSPECIFIED MEM HOS[facility] , INC UNSPECIFIED STATUS 01306 ABDOMINAL 03-18-2012 [facility] PAIN, LEFT [facility] UPPER INC QUADRANT 9195 OT 01-05-2012 [facility] MX&UNSPEC SITES INSECT BITE NONVENOMOUS INF 13680 DIARRHEA 12-21-2011 [facility] ANT 7213 LUMBOSACRAL 12-14-2011 [facility] SLEEP AND SPONDYLOSIS REHA WITHOUT MYELOPATHY 7231 CERVICALGIA 12-14-2011 [facility] SLEEP AND REHA 8472 LUMBAR 12-14-2011 [facility] SPRAIN AND H SLEEP AND STRAIN REHA 7831 ABNORMAL 11-02-2011 [facility] GARNICA WEIGHT GAIN V2509 OT GENERAL 10-04-2011 [facility] DANIKA CNSL&ADVICE CONTRACEPT MANAGEMENT V2543 SURVEILLANC 09-06-2011 [facility]CO DANIKA E PREV PRSC IMPL SUBDERMAL CONTRACEPT 80713 PAIN IN 08-09-2011 WHANG LANI JOINT, ANKLE AND FOOT 7234 BRACHIAL 07-08-2011 JONES TRA NEURITIS OR RADICULITIS NOS 7294 UNSPECIFIED 07-08-2011 JONES TRA FASCIITIS 39150 UNSPECIFIED 04-13-2011 [facility] ANT ESOPHAGITIS 73454 REFLUX 04-13-2011 PATHOLOGY & ESOPHAGITIS CYTOLOGY LAB 43740 ATROPHIC 04-13-2011 PATHOLOGY & GASTRITIS CYTOLOGY WITHOUT LAB MENTION OF HEMORRHAGE 74424 OTHER SPEC 04-13-2011 [facility] ANT GASTRITIS WITHOUT MENTION HEMORRHAGE 5559 REGIONAL 04-13-2011 [facility] ANT ENTERITIS OF UNSPECIFIED SITE 45463 ULCERATION 04-13-2011 [facility] OF [facility]OS[facility] INTESTINE INC 42689 OTHER 04-13-2011 PATHOLOGY & SPECIFIED CYTOLOGY DISORDER OF LAB INTESTINES 5781 BLOOD IN 04-13-2011 [facility] 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[facility] SPLEEN [facility] 5693 HEMORRHAGE 03-30-2011 A[facility] ANT OF RECTUM AND ANUS 10962 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.] JIMMIE VISION 7226 DEGENERATIO 08-06-2010 NEURODIAGNO N [facility] INTERVERTEB RAL DISC SITE UNSPEC 56857 LUMP OR 07-05-2010 [place] MASS IN MEDICAL BREAST IMAGING ASS 6210 [...] IMPLANTABLE [place] [address] CHEST PAIN 05-23-2009 [place] UNSPECIFIED [facility]ICAL IMAGING ASSOCIATES 25971 PAINFUL 05-23-2009 [facility] 77359 SPRAIN AND 05-23-2009 [facility] STRAIN OF MEM HOS[facility] CHONDROSTER INC NAL 8489 UNSPECIFIED 05-23-2009 [facility] SITE OF EMERGENCY SPRAIN AND SERVICES STRAIN ASSOCIATES V251 ENCOUNTER 08-05-2008 [facility] INSERT/[facility] IU CLINIC OF CONTRACEPTI [place] VE DEVICE [facility] 28835 NON-HEALING 07-29-2008 [facility]EN'[facility] SURGICAL HEALTH WOUND NEC CLINIC OF HÉCTOR [facility] 90011 CHRONIC 07-17-2008 [facility] FATIGUE [facility] SYNDROME INC V242 ROUTINE 07-17-2008 WOMEN'S HEALTH FOLLOW-UP CLINIC OF HÉCTOR [facility] 605 REDUNDANT 06-18-2008 [facility] PHIMOSIS 78311 ABNORMAL 06-18-2008 WOMEN'S MATERNAL HEALTH GLUCOSE CLINIC OF TOLERANCE CY[place] ANTEPARTUM [facility] 70990 HIGH 06-18-2008 COMM[facility] HEAD AT ANESTH OF TERM, THE DELIVERED MANOHAR 72673 FETOPELVIC 06-18-[address] ON, CLINIC OF DELIVERED HÉCTOR [facility] V270 OUTCOME OF 06-18-2008 WOMEN'S DELIVERY HEALTH SINGLE CLINIC OF LIVEBORN HÉCTOR [facility] V3001 SINGLE 06-18-2008 [place] [address] ABNORMAL 06-17-2008 [facility] MATERNAL [facility] GLUCOSE INC TOLERANCE W/DELIVERY 57050 OBESITY 06-17-2008 [facility] COMP PG MEM HOSP CHILDBIRTH/ INC THE PP DELIVERED 07892 EXCESS 06-13-2008 [facility] HEALTH GROWTH CLINIC OF AFFECT MGMT HÉCTOR MOTH [facility] ANTPRTM 97411 TRANSIENT 06-03-2008 [facility] HYPERTENSIO MEM HOSP N OF INC ANTEPARTUM 53664 POLYHYDRAMN 06-03-2008 [facility] ANTEPARTUM CLINIC OF COMPLCARTERTIMatthew ANAYA N [facility] 07521 THREATENED 05-29-2008 [facility] PREMATURE [facility] LABOR INC ANTEPARTUM 66191 OTHER 05-29-2008 KING CARIAS MD LABOR, ANTEPARTUM V220 SUPERVISION 05-20-2008 [facility] NORMAL PHYSICIANS FIRST LAB 39106 ABN MAT 04-30-2008 GLUCOSE DIAGNOSTICC TOLERANCE ENTER COMPL PG CB/PP UNS EOC 45229 OBES COMP 04-30-2008 [facility]THE HOS[facility] PP ANTEPARTUM COND/COMP 75367 MATERNAL 04-03-2008 DI[facility] DIAGNOSTICC MELLITUS ENTER ANTEPARTUM 490 BRONCHITIS 04-02-2008 Kayile SOUSA JR V SPECIFIED ACUTE OR CHRONIC 13380 OTHER 03-29-2008 ANGELA SPECIFED [employer] N ANTEPARTUM V222 03-29-2008 [facility] STATE, MEM [facility]OS[facility] INCIDENTAL INC 47887 LATE 03-17-2008 [facility] VOMITING OF [facility] INC ANTEPARTUM 8483 SPRAIN AND 02-23-2008 ANGELA STRAIN OF [employer] 88940 OTH 02-22-2008 KNOWN/SUSPE DIAGNOSTICC CTED ENTER ABNORMALITY -NEC-APC/C 4720 CHRONIC 02-18-2008 Kaylie SHULTZ JR V 7840 HEADACHE 02-18-[address] [place] [address] OTH SPEC 01-24-2008 COMP DIAGNOSTICC ENTER UNSPEC EPISODE CARE 93707 POOR 01-24-2008 [facility] MGMT [facility] H[facility] ANTPRTM COND/COMP 85752 THREATENED 11-30-2007 [place] , MEDICAL ANTEPARTUM [facility] 5990 URINARY 11-24-2007 [facility] TRACT [facility] INFECTION INC SITE NOT SPECIFIED 46561 INFECTIONS 11-24-2007 [facility] OF [facility] GENITOURINA INC RY TRACT ANTEPARTUM Medications [...] 20 4- 3- 00 06 TO ve MT 76 20 20 08 WN N 00 17 17 37 HC 5 79 PH L AR 1, MA 00 CY 0 MG OF TA CY BL NT ET HI AN A LI 68 05 06 30 30 00 HO Ac SI 00 -1 -0 .0 00 ME ti NO 10 8- 9- 00 06 TO ve CA 26 20 20 08 WN IL 80 [...] 10 5- 9- 00 06 TO ve CA 00 20 20 08 WN ED 50 17 17 57 NI 1 14 PH SO AR LO MA NE CY 4 OF MG CY DO NT SE HI PK AN A ME 68 04 05 60 30 00 HO Ac TF 38 -2 -1 .0 00 ME ti OR 20 4- 9- 00 06 TO ve MT 76 20 20 08 WN N 00 [...] 10 1- 5- 00 06 TO ve CA 26 20 20 08 WN IL 80 [...] 20 3- 4- 00 06 TO ve MT 76 20 20 08 WN N 00 [...] ST 00 08 04 24 30 00 CA Ac ER 40 -1 -0 .0 00 [...] 00 3- 4- 00 06 TO ve CA 51 20 20 07 WN IL 40 [...] 20 2- 7- 00 06 TO ve MT 76 20 20 08 WN N 00 17 17 19 HC 5 32 PH L AR 1, MA 00 CY 0 MG OF TA CY BL NT ET HI AN A LI 68 01 02 30 30 00 HO Ac SI 18 -2 -1 .0 00 ME ti NO 00 5- 7- 00 06 TO ve CA 51 20 20 07 WN IL 40 [...] 20 7- 0- 00 06 TO ve MT 76 20 20 07 WN N 00 [...] 00 8- 0- 00 06 TO ve CA 51 20 20 07 WN IL 40 [...] 20 4- 3- 00 06 TO ve MT 76 20 20 07 WN N 00 [...] 3- 6- 00 MA 88 LD ve MT 05 20 20 RT 9 N 06 [...] 3- 3- 00 MA 88 LD ve MT 05 20 20 RT 9 N 06 [...] 0 14 7 CL 23 CH Ac CA 14 -2 -2 .0 IN 92 ES ti OF 32 5- 5- 00 IC 41 TN ve LO 03 20 20 UT XA 70 11 11 PH CI 1 AR MT N MA CH HC CY AE L L 50 LL 0 C MG TA B CA 00 05 05 0 25 5 CL 23 CH Ac ED 05 -2 -2 .0 IN 92 ES ti NI 40 5- 5- 00 IC 42 TN ve SO 01 20 20 UT NE 72 11 11 PH 5 AR MT 10 MA CH CY AE MG L [...] 9- 0- 00 MA 65 MA ve CA 59 20 20 RT 2 N ED 31 11 11 II NI 5 PH I SO AR WI LO MA LL NE CY IA 4 # M E MG 10 05 DO 91 SE PK 00 05 05 0 15 5 GA 71 WE Ac 37 -0 -1 .0 L- 18 HR ti 80 9- 0- 00 MA 65 MA ve 75 20 20 RT 3 N 19 11 11 II 3 PH I AR WI MA LL CY IA # M E 10 05 91 AM 00 03 05 1 30 10 GA 71 AR Ac OX 78 -1 -0 .0 L- 10 NO ti IC 12 4- 8- 00 MA 88 LD ve IL 61 20 20 RT 5 LI 33 11 11 RI N 1 PH CH 50 AR AR 0 MA D MG CY W # CA PS 10 UL 05 E 91 FL 00 04 04 2 1. 1 GA 71 CL Ac UC 17 -1 -1 00 L- 15 AR ti ON 25 5- 8- 0 MA 42 KE ve AZ 41 20 20 RT 4 OL 21 11 11 DE E 1 PH RE 15 AR K 0 MA J MG CY # TA BL 10 ET 05 91 FL 00 04 04 2 1. 1 GA 71 CL Ac UC 17 -1 -1 00 L- 15 AR ti ON 25 5- 5- 0 MA 42 KE ve AZ 41 20 20 RT 4 OL 21 11 11 DE E 1 PH RE 15 AR K 0 MA J MG CY # TA BL 10 ET 05 91 ES 00 04 04 0 60 30 GA 71 CL Ac TR 55 -1 -1 .0 L- 15 AR ti AD 50 5- 5- 00 MA 42 KE ve IO 88 20 20 RT 5 L 70 11 11 DE 2 2 PH RE MG AR K MA J TA CY BL # ET 10 05 91 00 04 04 0 20 3 GA 44 CL Ac 40 -0 -0 .0 L- 92 AR ti 60 1- 1- 00 MA 77 KE ve 35 20 20 RT 4 80 11 11 DE 1 PH RE AR K MA J CY # 10 05 91 AN 43 03 03 1 15 15 GA 71 AR Ac TI 19 -1 -1 .0 L- 10 NO ti PY 90 4- 4- 00 MA 88 LD ve RI 01 20 20 RT 4 NE 61 11 11 RI -B 5 PH CH EN AR AR ZO MA D CA CY W IN # E EA [address] 91 OP AM 00 03 03 1 30 10 GA 71 AR Ac OX 78 -1 -1 [...] 00 60 30 CL 19 CL Ac CA 74 -0 -1 .0 IN 52 AR [...] 8- 6- 00 MA 21 EY ve CA 59 20 20 RT 8 ED 31 09 09 MT NI 5 PH CH SO AR AE LO MA L NE CY S 4 #5 MG 91 DO SE PK AZ 00 02 02 00 6. 5 WA 70 GA Ac IT 78 -0 -2 00 L- 07 IN ti HR 11 8- 6- 0 MA 21 EY ve OM 49 20 20 RT 7 YC 66 09 09 MT IN 8 PH CH AR AE 25 [...] 3- 5- 00 MA 39 E ve CA 59 20 20 RT 1 RO ED 31 09 09 ND NI 5 PH AL SO AR E LO MA NE CY 4 #5 MG 91 DO SE PK ME 00 12 00 21 6 WA 69 GA Ac TH 60 -1 -0 .0 L- 99 IN ti YL 34 4- 1- 00 MA 82 EY ve CA 59 20 20 RT 7 ED 31 08 09 MT NI 5 PH CH SO AR AE LO MA L NE CY S 4 #5 MG 91 DO SE PK 00 12 01 00 18 7 WA 88 GA Ac 03 -1 -0 0. L- 13 IN ti 18 4- 1- 00 MA 21 EY ve 68 20 20 0 RT 8 51 08 09 MT 2 PH CH AR AE MA L CY S #5 91 AZ 00 12 01 00 6. 5 WA 69 GA Ac IT 78 -1 -0 00 L- 99 IN ti HR 11 4- 1- 0 MA 82 EY ve OM 49 20 20 RT 8 YC 66 08 09 MT IN 8 PH CH AR AE 25 [...] Procedure DOS Code Location Performer Comment CHIROPRAC [address] [facility] TIC 7 N FAMILY MANIPULAT CHIROPRAC ROSS TX T SPINAL 3-4 REGIONS CHIROPRAC 93837 [facility] TIC 7 N FAMILY MANIPULAT CHIROPRAC ROSS TX T SPINAL 3-4 REGIONS CHIROPRAC 42950 [facility] TIC 7 N FAMILY MANIPULAT CHIROPRAC ROSS TX T SPINAL 3-4 REGIONS HEMOGLOBI 47391 MATEO MUHAMMADD N 7 DIABETIC GLYCOSYLA [facility] A1C P CHIROPRAC 24715 JAQUELIN VILLEGAS TIC 7 N FAMILY MANIPULAT CHIROPRAC ROSS TX T SPINAL 3-4 REGIONS CHIROPRAC 50499 LEOD[facility] LONG TIC 7 N FAMILY MANIPULAT CHIROPRAC ROSS TX T SPINAL 3-4 REGIONS CHIROPRAC 25761 JAQUELIN VILLEGAS TIC 7 N FAMILY MANIPULAT CHIROPRAC ROSS TX T SPINAL 3-4 REGIONS CHIROPRAC 04293 LEODANSARAI VILLEGAS TIC 7 N FAMILY MANIPULAT CHIROPRAC ROSS TX T SPINAL 3-4 REGIONS CHIROPRAC 42056 LEODANSARAI VILLEGAS TIC 7 N FAMILY MANIPULAT CHIROPRAC ROSS TX T SPINAL 3-4 REGIONS CHIROPRAC 17961 JAQUELIN VILLEGAS TIC 7 N FAMILY MANIPULAT CHIROPRAC ROSS TX T SPINAL 3-4 REGIONS HEMOGLOBI 28478 MATEO MUHAMMADD N 6 DIABETIC GLYCOSYLA [place], [facility] A1C P BLOOD 01486 [facility] COUNT 6 [facility] COMPLETE INC INC AUTO&AUTO DIFRNTL WBC LIPID 99782 [facility] PANEL 6 [facility] INC INC COLLECTIO 57360 [facility] N VENOUS 6 [facility] BLOOD INC INC VENIPUNCT URE COMPREHEN 25169 HYACIN[facility] SIVE 6 [facility] METABOLIC INC INC PANEL CHIROPRAC 79145 JAQUELIN VILLEGAS TIC 6 N FAMILY RANDY MANIPULAT CHIROPRAC ROSS TX T SPINAL 3-4 REGIONS CHIROPRAC 81799 JAQUELIN VILLEGAS TIC 6 N FAMILY RANDY MANIPULAT CHIROPRAC ROSS TX T SPINAL 3-4 REGIONS HEMOGLOBI 99234 MATEO FRANCOJAD N 6 DIABETIC GLYCOSYLA [place], [facility] A1C P CHIROPRAC 14469 JAQUELIN VILLEGAS TIC 6 N FAMILY RANDY MANIPULAT CHIROPRAC ROSS TX T SPINAL 3-4 REGIONS CHIROPRAC 55057 JAQUELIN VILLEGAS TIC 6 N FAMILY RANDY MANIPULAT CHIROPRAC ROSS TX T SPINAL 3-4 REGIONS CHIROPRAC 63464 JAQUELIN LONG TIC 6 N FAMILY [place] MANIPULAT CHIROPRAC ROSS TX T SPINAL 3-4 REGIONS CHIROPRAC 42754 JAQUELIN VILLEGAS TIC 6 N FAMILY RANDY MANIPULAT CHIROPRAC ROSS TX T SPINAL 3-4 REGIONS CHIROPRAC 33497 JAQUELIN LONG TIC 6 N FAMILY DARR[place] MANIPULAT CHIROPRAC ROSS TX T SPINAL 3-4 REGIONS CHIROPRAC 11665 JAQUELIN LONG TIC 6 N FAMILY [place] MANIPULAT CHIROPRAC ROSS TX T SPINAL 3-4 REGIONS COMPREHEN 02527 HYACIN[facility]OS SIVE 6 [facility] METABOLIC INC INC PANEL COLLECTIO 43650 HYACIN[facility] N VENOUS 6 [facility] BLOOD INC INC VENIPUNCT URE LIPID 13143 HYACINTH CL[facility] PANEL 6 [place] [address] HYACIN[facility] CL[facility] THYROID 6 [facility] STIMULATI INC INC NG HORMONE TSH CHIROPRAC 58128 JAQUELIN VILLEGAS TIC 6 N FAMILY RANDY MANIPULAT CHIROPRAC ROSS TX T SPINAL 3-4 REGIONS CHIROPRAC 78356 JAQUELIN VILLEGAS TIC 6 N FAMILY RANDY MANIPULAT CHIROPRAC ROSS TX T SPINAL 3-4 REGIONS HEMOGLOBI 43240 MATEO COBIAN SOB N 6 DIABETIC GLYCOSYLA CENTER, ASUNCION A1C P CHIROPRAC 28513 JAQUELIN VILLEGAS TIC 6 N FAMILY RANDY MANIPULAT CHIROPRAC ROSS TX T SPINAL 3-4 REGIONS CHIROPRAC 07960 JAQUELIN VILLEGAS TIC 6 N FAMILY RANDY MANIPULAT CHIROPRAC ROSS TX T SPINAL 3-4 REGIONS CHIROPRAC 72803 JAQUELIN VILLEGAS TIC 6 N FAMILY RANDY MANIPULAT CHIROPRAC ROSS TX T SPINAL 3-4 REGIONS CHIROPRAC 16088 JAQUELIN LONG TIC 6 N FAMILY DARRON MANIPULAT CHIROPRAC ROSS TX T SPINAL 3-4 REGIONS HEMOGLOBI 97033 [place] AMJAD SOB N 6 DIABETIC GLYCOSYLA CENTER, ASUNCION A1C P CHIROPRAC 75263 JAQUELIN VILLEGAS TIC 6 N FAMILY RANDY MANIPULAT CHIROPRAC ROSS TX T SPINAL 3-4 REGIONS CHIROPRAC 80121 JAQUELIN VILLEGAS TIC 6 N FAMILY RANDY MANIPULAT CHIROPRAC ROSS TX T SPINAL 3-4 REGIONS CHIROPRAC 69820 JAQUELIN VILLEGAS TIC 6 N FAMILY RANDY MANIPULAT CHIROPRAC ROSS TX T SPINAL 3-4 REGIONS CHIROPRAC 97418 JAQUELIN VILLEGAS TIC 6 N FAMILY RANDY MANIPULAT CHIROPRAC ROSS [place] T SPINAL 3-4 [place] [address] [facility] MARCO TRANSVAGI 6 PHYSICIAN DANIKA NAL S GROUP CHIROPRAC 05810 JAQUELIN TONYLEY TIC 6 N FAMILY [place] MANIPULAT CHIROPRAC ROSS TX T SPINAL 3-4 REGIONS CHIROPRAC 16432 JAQUELIN VILLEGAS TIC 6 N FAMILY RANDY MANIPULAT CHIROPRAC ROSS TX T SPINAL 3-4 REGIONS CHIROPRAC 76496 JAQUELIN LONG TIC 6 N FAMILY DARRON MANIPULAT CHIROPRAC ROSS TX T SPINAL 3-4 REGIONS CHIROPRAC 56995 JAQUELIN VILLEGAS TIC 6 N FAMILY RANDY MANIPULAT CHIROPRAC ROSS TX T SPINAL 3-4 REGIONS CHIROPRAC 97199 JAQUELIN VILLEGAS TIC 6 N FAMILY RANDY MANIPULAT CHIROPRAC ROSS TX T SPINAL 3-[place] [address] [facility] MARCO TRANSVAGI 6 PHYSICIAN DANIKA NAL S GROUP ECG 56295 HYACINTH MARTINEZ ROUTINE 6 [facility] W/LEAST P 12 LDS I&R ONLY RADIOLOGI 57597 [place] GINGER C EXAM 6 MEDICAL EDIS CHEST 2 IMAGING VIEWS ASS FRONTAL&L ATERAL URNLS DIP 39499 [facility] MARCO 6 PHYSICIAN DANIKA STICK/TAB S GROUP LET RGNT NON-AUTO W/O MICRSCP HEMOGLOBI 71616 [place] AMJAD SOB N 6 DIABETIC GLYCOSYLA CENTER, ASUNCION A1C P RADEX 08150 PAYAL BEINEKE FOOT 5 MEDICAL ROCIO COMPLETE IMAGING MINIMUM 3 ASS VIEWS SURGICAL L3260 ADVANCED ADVANCED BOOT/SHOE 5 TECHNOLOG TECHNOLOG EACH IES INC IES INC CHIROPRAC 69036 JAQUELIN VILLEGAS TIC 5 N FAMILY RANDY MANIPULAT CHIROPRAC ROSS TX T SPINAL 1-2 REGIONS HEMOGLOBI 50197 [place] AMJAD SOB N 5 DIABETIC GLYCOSYLA [place], ASUNCION A1C P GLUC BLD 68893 HYACINTH CLAROS GLUC MNTR 5 [facility] DEV INC INC CLEARED FDA SPEC HOME USE ANESTHESI 46590 [facility] FERRO MAKENZIE A 5 ANESTH INCOMPLET OF THE E/[place] [address] [facility], [place] SURG 5 [facility] PATHOLOGY GROSS&ANNA ROSCOPIC EXAM INJECTION J2405 [facility]OS 5 [facility] ONDANSETR INC INC ON HCL PER 1 [place] [address] [facility]IN[facility]OS INFUSION 5 [facility] THERAPY INC INC PROPHYLAX IS/DX EA HOUR ECG 04674 HYACINTH JAVIER JR ROUTINE 5 [facility] W/LEAST P 12 LDS I&[place] [address] HYACIN[facility]OS INFUSION 5 [facility] THERAPY/P INC INC ROPHYLAXI S /DX 1ST TO 1 HR THERAPEUT 31021 HYACIN[facility] IC 5 [facility] INJECTION INC INC IV PUSH EACH NEW DRUG TX MISSED 14559 [facility] LARA 5 PHYSICIAN DANIKA FIRST S GROUP TRIMESTER SURGICAL ECG 97603 HYACINTH CLAROS ROUTINE 5 [facility] ECG INC INC W/LEAST 12 LDS TRCG ONLY W/O I&R US PREG 72188 HYACIN[facility] CL[facility]OS UTERUS 5 [facility] REAL TIME INC INC W/IMAGE DCMTN TRANSVAG DETERMINA 84435 SHAUN DUNN [facility] 5 GRE GRE REFRACTIV E STATE OPHTH 37841 [facility] 5 GRE GRE XM&EVAL COMPRHNSV ESTAB PT 1/> COMPREHEN 78025 HYACINTH CLAROS SIVE 5 [facility] METABOLIC INC INC PANEL URNLS DIP 66323 HYACIN[facility] CL[facility]OS 5 [facility] STICK/TAB INC INC LET REAGENT AUTO MICROSCOP Y BLOOD 75350 HYACINTH CLAROS COUNT 5 [facility] COMPLETE INC INC AUTO&AUTO DIFRNTL WBC OBSTETRIC 95426 [facility]IN[facility] PANEL 5 [facility] INC INC COLLECTIO 26116 HYACINTH CLAROS N VENOUS 5 [facility] BLOOD INC INC VENIPUNCT URE INF AGT G0432 HYACINTH CLAROS AB DETECT 5 [facility] EIA TECH INC INC HIV-1&/HI V-2 SCR US PREG 02807 [facility] LARA UTERUS 5 PHYSICIAN DANIKA REAL TIME S GROUP W/IMAGE DCMTN TRANSVAG IADNA 04583 [facility] CHLAMYDIA 5 [facility] INC INC TRACHOMAT IS AMPLIFIED PROBE TQ IADNA 36530 [facility]ACIN[facility] CLAROS NEISSERIA 5 [facility] INC INC GONORRHOE AE AMPLIFIED PROBE TQ RADEX 05133 [facility] FOOT 5 FOOT & N SHABNAM COMPLETE ANKLE CE MINIMUM 3 VIEWS HEMOGLOBI 40981 [place] CUR[place] N 5 DIABETIC R TAR GLYCOSYLA CENTER ASUNCION A1C RADEX 04560 [facility] FOOT 5 MEDICAL ROCIO COMPLETE IMAGING MINIMUM 3 [place] VIEWS [place] FLX [address]1784 [facility] MIKAYLA 5 PHYSICIAN CAM W/REMOVAL S GROUP [place] [address] [facility], [facility]G 5 [facility] ER JR SUMIT PATHOLOGY GROSS&ANNA ROSCOPIC EXAM CHIROPRAC 21008 JAQUELIN VILLEGAS TIC 5 N FAMILY RANDY MANIPULAT CHIROPRAC ROSS TX T SPINAL 1-[address] [place] [address] [facility] ABDOMEN & 5 MEDICAL ROCIO PELVIS IMAGING W/O ASS CONTRAST MATERIAL IADNA 29619 [facility], [facility] CHLAMYDIA 5 LLC ER JR SUMIT TRACHOMAT IS AMPLIFIED PROBE TQ URNLS DIP 67755 [facility] OJEDA 5 PHYSICIAN MARGOTH STICK/TAB S GROUP LET RGNT NON-AUTO W/O MICRSCP IADNA 93413 [facility], [facility] NEISSERIA 5 LLC ER JR SUMIT GONORRHOE AE AMPLIFIED PROBE TQ CYTP C/V 47472 [facility], [facility] AUTO THIN 5 LLC ER JR SUMIT LYR PREPJ SCR MNL RESCR PHYS GONADOTRO 26918 HY[facility]IN[facility] PIN 5 [facility] CHORIONIC INC INC QUALITATI VE COLLECTIO 62081 HYACIN[facility] CLAROS N VENOUS 5 [facility] [place] [address] [facility] ABDOMEN & 5 MEDICAL ROCIO PELVIS IMAGING W/O ASS CONTRAST MATERIAL CHIROPRA 50727 JAQUELIN VILLEGAS TIC 5 N FAMILY RANDY MANIPULAT CHIROPRAC ROSS TX T SPINAL 1-2 REGIONS COLLECTIO 73467 HYACINTH CLAROS N VENOUS 5 [facility] BLOOD INC INC VENIPUNCT URE LIPID 86831 HYACINTH CLAROS PANEL 5 [facility] INC INC FOR DIAB A5512 MATEO AMJAD SOB ONLY MX 5 DIABETIC DNSITY CENTER, INSRT DIR P FORMD PRFAB EA HEMOGLOBI 14377 MATE[facility] AMJAD SOB N 5 DIABETIC GLYCOSYLA CENTER, ASUNCION A1C P DIAB ONLY A5500 MATEO AMJAD SOB FIT CSTM 5 DIABETIC PREP&SPL CENTER, SHOE MX P DNSITY INSRT INJECTION J1040 [facility] JEANINE 5 PHYSICIAN ANNA METHYLPRE S GROUP DNISOLONE ACETATE 80 MG THERAPEUT 70713 [facility] JEANINE IC 5 PHYSICIAN ANNA PROPHYLAC S GROUP TIC/DX INJECTION SUBQ/IM COLLECTIO 06253 MATEO AMJAD SOB N VENOUS 5 DIABETIC BLOOD CENTER VENIPUNCT URE CHIROPRAC 54372 JAQUELIN VILLEGAS TIC 5 N FAMILY RANDY MANIPULAT CHIROPRAC ROSS TX T SPINAL 1-2 REGIONS THERAPEUT 40320 JAQUELIN VILLEGAS IC PX 1/> 5 N FAMILY RANDY AREAS CHIROPRAC EACH 15 T MIN EXERCISES CHIROPRAC 56955 JAQUELIN VILLEGAS TIC 5 N FAMILY RANDY MANIPULAT CHIROPRAC ROSS TX T SPINAL 1-2 REGIONS APPL 32650 JAQUELIN VILLEGAS MODALITY 5 N FAMILY RANDY 1/> AREAS CHIROPRAC TRACTION T MECHANICA L CHIROPRAC 36712 JAQUELIN VILLEGAS TIC 5 N FAMILY RANDY MANIPULAT CHIROPRAC ROSS TX T SPINAL 1-2 REGIONS THERAPEUT 56180 JAQUELIN VILLEGAS IC PX 1/> 5 N FAMILY RANDY AREAS CHIROPRAC EACH 15 T MIN EXERCISES COMPUTER- 61162 HYACINTH CL[facility]OS AIDED 5 [facility] DETECTION INC INC SCREENING MAMMOGRAP HY SCREENING G0202 [facility]OS 5 [facility] MAMMOGRAP INC INC HY CHIRAG INCL CAD WHEN PERFORMD APPL 85417 JAQUELIN VILLEGAS MODALITY 5 N FAMILY RANDY 1/> AREAS CHIROPRAC ELEC T STIMJ EA 15 MIN CHIROPRAC 26292 JAQUELIN VILLEGAS TIC 5 N FAMILY RANDY MANIPULAT CHIROPRAC ROSS TX T SPINAL 1-2 REGIONS THERAPEUT 93028 JAQUELIN VILLEGAS IC PX 1/> 5 N FAMILY RANDY AREAS CHIROPRAC EACH 15 T MIN EXERCISES HEMOGLOBI 56019 [facility] N 5 ANABAPTISM ANABAPTISM GLYCOSYLA HOSP HOSP ASUNCION A1C COMPREHEN 09023 [facility] SIVE 5 ANABAPTISM ANABAPTISM METABOLIC HOSP HOSP PANEL CHIROPRAC 99515 JAQUELIN VILLEGAS TIC 5 N FAMILY RANDY MANIPULAT CHIROPRAC ROSS TX T SPINAL 1-2 REGIONS THERAPEUT 78876 JAQUELIN VILLEGAS IC PX 1/> 5 N FAMILY RANDY AREAS CHIROPRAC EACH 15 [place] [address] [facility] MARCO TRANSVAGI 4 PHYSICIAN DANIKA NAL S GROUP NEEDLE 79884 [facility]BAPTISM [facility] EMG EA 4 NEUROLOGY AYAD EXTREMTY W/PARASPI CONSULTAN NL AREA T COMPLETE NERVE 00775 ANABAPTISM [facility] CONDUCTIO 4 NEUROLOGY AYAD N STUDIES 11-12 CONSULTAN STUDIES T SMR PRIM 41605 [facility] MARCO SRC WET 4 PHYSICIAN DANIKA [place] GROUP NFCT AGT MRI 78055 CENTRAL JONES TRA SPINAL 4 [place] CANAL ORTHOPAED LUMBAR ICS PLC W/O CONTRAST MATERIAL RADIOLOGI 31333 PAYAL JENSEN C EXAM 4 MEDICAL ROCIO CHEST 2 IMAGING VIEWS ASS FRONTAL&L ATERAL RADEX 23683 JONES TRA JONES TRA SPINE 4 LUMBOSACR AL 2/3 VIEWS THERAPEUT 48580 BAKARI BAKARI IC PX 1/> 4 RANDY RANDY AREAS EACH 15 MIN EXERCISES CHIROPRAC 83721 BAKARI BAKARI TIC 4 RANDY RANDY MANIPULAT ROSS TX SPINAL 3-4 REGIONS CHIROPRAC 95334 BAKARI BAKARI TIC 4 RANDY RANDY MANIPULAT ROSS TX SPINAL 3-4 REGIONS THERAPEUT 31511 [place]I [place]AKARI IC PX 1/> 4 RANDY RANDY AREAS EACH 15 MIN EXERCISES APPL 76691 BAKARI BAKARI MODALITY 4 RANDY RANDY 1/> AREAS TRACTION MECHANICA L THERAPEUT 28301 [place]AK[place]I BAKARI IC PX 1/> 4 RANDY RANDY AREAS EACH 15 MIN EXERCISES CHIROPRAC 95891 BAKARI BAKARI TIC 4 RANDY RANDY MANIPULAT ROSS TX SPINAL 3-4 REGIONS CHIROPRAC 96891 BAKARI BAKARI TIC 4 RANDY RANDY MANIPULAT ROSS TX SPINAL 3-4 REGIONS THERAPEUT 20407 BAKARI BAKARI IC PX 1/> 4 RANDY RANDY AREAS EACH 15 MIN EXERCISES RADEX 23543 [place] [facility] FOOT 4 FOOT & N SHABNAM COMPLETE ANKLE CE MINIMUM 3 VIEWS THERAPEUT 33796 BAKARI BAKARI IC PX 1/> 4 RANDY RANDY AREAS EACH 15 MIN EXERCISES CHIROPRAC 99191 BAKARI BAKARI TIC 4 RANDY RANDY MANIPULAT ROSS TX SPINAL 3-4 REGIONS CHIROPRAC 36780 BAKARI BAKARI TIC 4 RANDY RANDY MANIPULAT ROSS TX SPINAL 3-4 REGIONS THERAPEUT 22337 [place]AKARI BAKARI IC PX 1/> 4 RANDY RANDY AREAS EACH 15 MIN EXERCISES THERAPEUT 50548 BAKARI BAKARI IC PX 1/> 4 RANDY RANDY AREAS EACH 15 MIN EXERCISES CHIROPRAC 57816 BAKARI BAKARI TIC 4 RANDY RANDY MANIPULAT ROSS TX SPINAL 3-[address] [place] [address] [facility] ABDOMEN & 4 MEDICAL EDIS PELVIS IMAGING W/O ASS CONTRAST MATERIAL CHIROPRA 05773 BAKARI BAKARI TIC 4 RANDY RANDY MANIPULAT ROSS TX SPINAL 3-4 REGIONS THERAPEUT 12652 BAKARI BAKARI IC PX 1/> 4 RANDY RANDY AREAS EACH 15 MIN EXERCISES THERAPEUT 62290 BAKARI BAKARI IC PX 1/> 4 RANDY RANDY AREAS EACH 15 MIN EXERCISES CHIROPRA 24792 BAKARI BAKARI TIC 4 RANDY RANDY MANIPULAT ROSS TX SPINAL 3-4 REGIONS THERAPEUT 46283 BAKARI BAKARI IC PX 1/> 4 RANDY RANDY AREAS EACH 15 MIN EXERCISES CHIROPRA 19717 BAKARI BAKARI TIC 4 RANDY RANDY MANIPULAT ROSS TX SPINAL 3-4 REGIONS THERAPEUT 59708 BAKARI BAKARI IC PX 1/> 4 RANDY RANDY AREAS EACH 15 MIN EXERCISES CHIROPRA 22965 BAKARI BAKARI TIC 4 RANDY RANDY MANIPULAT ROSS TX SPINAL 3-4 REGIONS CHIROPRA 06297 BAKARI BAKARI TIC 4 RANDY RANDY MANIPULAT ROSS TX SPINAL 3-4 REGIONS THERAPEUT 12463 BAKARI BAKARI IC PX 1/> 4 RANDY RANDY AREAS EACH 15 MIN EXERCISES THERAPEUT 90666 BAKARI BAKARI IC PX 1/> 4 RANDY RANDY AREAS EACH 15 MIN EXERCISES CHIROPRA 59918 BAKARI BAKARI TIC 4 RANDY RANDY MANIPULAT ROSS TX SPINAL 3-4 REGIONS CHIROPRA 45441 BAKARI BAKARI TIC 4 RANDY RANDY MANIPULAT ROSS TX SPINAL 3-4 REGIONS THERAPEUT 57140 BAKARI BAKARI IC PX 1/> 4 RANDY RANDY AREAS EACH 15 MIN EXERCISES THERAPEUT 53797 BAKARI BAKARI IC PX 1/> 4 RANDY RANDY AREAS EACH 15 MIN EXERCISES CHIROPRA 83111 BAKARI BAKARI TIC 4 RANDY RANDY MANIPULAT ROSS TX SPINAL 3-4 REGIONS 62999 [facility] TRANSVAGI 4 DANIKA DANIKA NAL CHIROPRAC 16023 BAKARI BAKARI TIC 4 RANDY RANDY MANIPULAT ROSS TX SPINAL 3-4 REGIONS THERAPEUT 03197 BAKARI BAKARI IC PX 1/> 4 RANDY RANDY AREAS EACH 15 MIN EXERCISES THERAPEUT 70560 BAKARI BAKARI IC PX 1/> 4 RANDY RANDY AREAS EACH 15 MIN EXERCISES CHIROPRAC 99965 BAKARI BAKARI TIC 4 RANDY RANDY MANIPULAT ROSS TX SPINAL 3-4 REGIONS CHIROPRAC 88172 BAKARI BAKARI TIC 4 RANDY RANDY MANIPULAT ROSS TX SPINAL 3-4 REGIONS THERAPEUT 34021 BAKARI BAKARI IC PX 1/> 4 RANDY RANDY AREAS EACH 15 MIN EXERCISES APPL 99177 BAKARI BAKARI MODALITY 4 RANDY RANDY 1/> AREAS TRACTION MECHANICA L URINE 35309 [facility] LARA 4 DANIKA DANIKA TEST VISUAL COLOR CMPRSN METHS APPL 71030 BAKARI BAKARI MODALITY 4 RANDY RANDY 1/> AREAS TRACTION MECHANICA L GONADOTRO 87716 HYACINTH CLAROS PIN 4 [facility]OS[facility] CHORIONIC INC INC QUALITATI VE THERAPEUT 76004 BAKARI BAKARI IC PX 1/> 4 RANDY RANDY AREAS EACH 15 MIN EXERCISES CHIROPRAC 33923 BAKARI BAKARI TIC 4 RANDY RANDY MANIPULAT ROSS TX SPINAL 3-4 REGIONS CHIROPRAC 74005 BAKARI BAKARI TIC 4 RANDY RANDY MANIPULAT ROSS TX SPINAL 3-4 REGIONS THERAPEUT 66378 BAKARI BAKARI IC PX 1/> 4 RANDY RANDY AREAS EACH 15 MIN EXERCISES APPL 67808 BAKARI BAKARI MODALITY 4 RANDY RANDY 1/> AREAS TRACTION MECHANICA L APPL 58655 BAKARI BAKARI MODALITY 4 RANDY RANDY 1/> AREAS TRACTION MECHANICA L CHIROPRAC 91860 BAKARI BAKARI TIC 4 RANDY RANDY MANIPULAT ROSS TX SPINAL 3-4 REGIONS THERAPEUT 82474 BAKARI BAKARI IC PX 1/> 4 RANDY RANDY AREAS EACH 15 MIN EXERCISES CHIROPRAC 81389 BAKARI BAKARI TIC 4 RANDY RANDY MANIPULAT ROSS TX SPINAL 3-4 REGIONS APPL 16620 BAKARI BAKARI MODALITY 4 RANDY RANDY 1/> AREAS TRACTION MECHANICA L GENERAL 09057 COMBINED COMBINED HEALTH 4 PHYSICIAN PHYSICIAN PANEL S LA S LA BLOOD 56310 COMBINED COMBINED COUNT 4 PHYSICIAN PHYSICIAN RETICULOC S LA S LA YTE AUTOMATED IRON 81608 COMBINED COMBINED BINDING 4 PHYSICIAN PHYSICIAN CAPACITY S LA S LA LIPID 79300 COMBINED COMBINED PANEL 4 [place] [address] COMBINED COMBINED FREE 4 PHYSICIAN PHYSICIAN THYROXINE S LA S LA SEDIMENTA 36496 COMBINED COMBINED TION RATE 4 PHYSICIAN PHYSICIAN RBC S LA S LA NON-AUTOM ATED 25 87649 COMBINED COMBINED HYDROXY 4 PHYSICIAN PHYSICIAN INCLUDES S LA S LA FRACTIONS IF PERFORMED CYANOCOBA 11298 COMBINED COMBINED SCOOTER 4 PHYSICIAN PHYSICIAN VITAMIN S LA S LA B-12 OPHTH 72179 SHAUN DUNN MEDICAL 4 GRE GRE XM&EVAL COMPRHNSV ESTAB PT 1/> DETERMINA 09117 SHAUN DUNN TION 4 GRE GRE REFRACTIV E STATE IADNA 57043 PICKLESIM PICKLESIM CHLAMYDIA 4 ER JR SUMIT ER JR SUMIT TRACHOMAT IS AMPLIFIED PROBE TQ IADNA 57667 PICKLESIM PICKLESIM NEISSERIA 4 ER JR SUMIT ER JR SUMIT GONORRHOE AE AMPLIFIED PROBE TQ CYTP C/V 39148 PICKLESIM PICKLESIM AUTO THIN 4 ER JR SUMIT ER JR SUMIT LYR PREPJ SCR MNL RESCR PHYS ADMINISTR G0008 OLYA DOBSON ATION OF 4 [facility] INFLUENZA VIRUS VACCINE INFLUENZA Q2038 OLYA DOBSON VACC 4 [facility] SPLIT VIRUS 3 YRS & > IM FLUZONE RADEX 59885 GINGER GINGER HAND 3 EDIS EDIS MINIMUM 3 VIEWS WRIST L3908 [facility] HAND 3 ORTHOS[place] [address] GINGER GINGER ABDOMEN & 3 EDIS EDIS [place] [address] GINGER GINGER ABDOMINAL 3 EDIS [place] W/[place] [address] [facility] TRANSVAGI 3 DANIKA DANIKA NAL [place] PREG 10571 [facility] UTERUS 3 DANIKA DANIKA REAL TIME W/IMAGE DCMTN TRANSVAG URINE 82823 [facility]ARA 3 DANIKA DANIKA TEST VISUAL COLOR CMPRSN METHS GONADOTRO 18385 HYACINTH CLAROS PIN 3 [facility] CHORIONIC INC INC QUANTITAT ROSS GONADOTRO 99425 HYACINTH CLAROS PIN 3 [facility] CHORIONIC INC INC QUANTITAT ROSS URINE 41128 HYACINTH CLAROS 3 [facility] TEST INC INC VISUAL COLOR CMPRSN METHS [place] PREG 48946 GINGER GINGER UTERUS 3 EDIS EDIS REAL TIME W/IMAGE DCMTN TRANSVAG URNLS DIP 27984 HYACINTH CL[facility]OS 3 [facility] STICK/TAB INC INC LET REAGENT AUTO MICROSCOP Y BLOOD 87878 HYACINTH CL[facility]OS COUNT 3 [facility] COMPLETE INC INC AUTO&AUTO DIFRNTL WBC CULTURE 12665 HYACINTH RAM BACTERIAL 3 [facility]OS[facility] LIS INC QUANTTATI VE COLONY COUNT URINE COMPREHEN 68417 HYACINTH HYACINTH SIVE 3 [facility] METABOLIC INC INC PANEL COMPREHEN 16153 HYACINTH CLAROS SIVE 3 [facility]OS[facility] METABOLIC INC INC PANEL HEMOGLOBI 70432 HYACINTHSEFERINO [facility] N 3 [facility] GLYCOSYLA INC INC ASUNCION A1C DETERMINA 36273 [facility] 3 GRE GRE REFRACTIV E STATE OPHTH 94537 [facility] 3 GRE GRE XM&EVAL COMPRHNSV ESTAB PT 1/> URINE 62461 [facility] TEST INC INC VISUAL COLOR CMPRSN METHS URNLS DIP 71183 [facility] STICK/TAB INC INC LET REAGENT AUTO MICROSCOP Y URNLS DIP 62535 [facility] 2 DANIKA DANIKA STICK/TAB LET RGNT NON-AUTO W/O MICRSCP CYTP C/V 28767 PICKLESIM PICKLESIM AUTO THIN 2 ER JR SUMIT ER JR SUMIT LYR PREPJ SCR MNL RESCR PHYS THERAPEUT 02364 [facility] IC PX 1/> 2 [facility] AREAS INC INC EACH 15 MIN EXERCISES APPLICATI 10-08-201 97843 [facility] ON 2 [facility] MODALITY INC INC 1/> AREAS HOT/COLD PACKS APPL 89313 [facility] MODALITY 2 [facility] 1/> AREAS INC INC ELEC STIMJ UNATTENDE D APPLICATI 30788 [facility] ON 2 [facility] MODALITY INC INC 1/> AREAS HOT/COLD PACKS APPL 38361 [facility] MODALITY 2 [facility] 1/> AREAS INC INC ELEC STIMJ UNATTENDE D THERAPEUT 35242 [facility] IC PX 1/> 2 [facility] AREAS INC INC EACH 15 MIN EXERCISES APPL 35334 [facility] MODALITY 2 [facility] 1/> AREAS INC INC ELEC STIMJ EA 15 MIN APPL 27191 [facility] MODALITY 2 [facility] 1/> AREAS INC INC ELEC STIMJ UNATTENDE D APPLICATI 96077 [facility] ON 2 [facility] MODALITY INC INC 1/> AREAS HOT/COLD PACKS THERAPEUT 54800 HYAC[facility] HYACINTH IC PX 1/> 2 [facility] AREAS INC INC EACH 15 MIN EXERCISES SEDIMENTA 33086 COMBINED COMBINED TION RATE 2 PHYSICIAN PHYSICIAN RBC S LA S LA NON-AUTOM ATED GENERAL 05113 COMBINED COMBINED HEALTH 2 PHYSICIAN [place] [address] COMBINED COMBINED THYROXINE 2 PHYSICIAN PHYSICIAN TOTAL S LA S LA LIPID 54045 COMBINED COMBINED PANEL 2 PHYSICIAN PHYSICIAN S LA S LA THYROID 50553 COMBINED COMBINED HORM 2 PHYSICIAN PHYSICIAN UPTK/THYR S LA S LA OID HORMONE BINDING RATIO PHYSICAL 41144 [facility] THERAPY 2 [facility] [place]UAT[place] [address] [place] TRANSVAGI 2 DANIKA DANIKA NAL NRV CNDJ 68987 WILMER RUIZS AMPLT&LAT 2 ENCY EA NRV MOTOR [place] [address] [facility] 2 [facility] GENERAL 91454 [facility] HEALTH 2 [facility] NRV [facility] 69057 GUILLEN ANTONINO GUILLEN ANTONINO AMPLITUDE 2 & LATENCY EACH NERVE SENSORY HEMOGLOBI 08807 [facility] N 2 [facility] ASUNCION A1C COLLECTIO 36546 [facility] N VENOUS 2 [facility] VENIPUNCT URE ORGANIC 04703 [facility] ACID 1 2 [facility] ROSS CYANOCOBA 69378 [facility] SCOOTER [address] [facility] B-12 REMOVAL 32873 [facility] NON-BIODE 2 DANIKA DANIKA GRADABLE DRUG DELIVERY IMPLANT NRV CNDJ 30753 JONES TRA JONES TRA AMPLITUDE 2 & LATENCY EACH NERVE SENSORY NRV CND 09392 JONES TRA JONES TRA AMPLT&LAT 2 ENCY EA NRV MOTOR W/F-WAVE STD NEEDLE 06258 JONES TRA JONES TRA EMG EA 2 EXTREMTY W/PARASPI NL AREA COMPLETE MRI 18901 JONES TRA JONES TRA SPINAL 2 CANAL CERVICAL W/O CONTRAST MATRL RADEX 87525 JONES TRA JONES TRA SPINE 2 CERVICAL 2 OR 3 VIEWS RADEX 84693 JONES TRA JONES TRA SPINE 2 THORACIC 2 [place] [address] [facility] CLOSTRIDI 2 [facility] [place] [address] [facility] GIARDIA 2 [facility] INC INC CUL BACT 76285 [facility] STOOL 2 [facility] AEROBIC INC INC ISOL SALMONELL A&SHIGELL OVA&THUAN 00639 [facility] ITES 2 [facility] DIRECT INC INC SMEARS CONCENTRA TION & ID DRUG SCR G0434 [facility] NOT 2 CHROMATOG RAPHIC; ANY NUMBER PT ENC CUL 45101 [facility] PRSMPTV 2 [facility] PTHGNC [place] [address] [facility] ABDOMEN & 2 [facility] PELVIS INC [place] W/[place] [address] [facility] INFUSION 2 [facility] THERAPY/P INC INC ROPHYLAXI S /DX 1ST TO 1 HR COLONOSCO 09463 ADEOLA ANT ADEOLA ANT PY 2 W/BIOPSY SINGLE/[place] FLX [address] ADEOLA ANT ADEOLA ANT W/RMVL 2 OF TUMOR POLYP LESION SNARE TQ URINE 78795 [facility] TEST INC [place] [address] [facility] INFUSION 2 [facility] THERAPY INC INC PROPHYLAX IS/DX EA HOUR EGD 52156 ADEOLA ANT ADEOLA ANT TRANSORAL 2 BIOPSY SINGLE/[place] [address] PATHOLOGY WILFRID PAT SURG 2 & PATHOLOGY CYTOLOGY LAB GROSS&ANNA ROSCOPIC EXAM BLOOD 58500 [facility] COUNT 2 [facility] COMPLETE INC INC AUTO&AUTO DIFRNTL WBC URNLS DIP 79274 [facility] 2 [facility] STICK/TAB INC INC LET [place] [address] [facility] AMYLASE 2 [facility] INC INC COMPREHEN 09472 [facility] SIVE 2 [facility] [place] [address] [facility] LIPASE 2 [facility] INC INC SPECIAL 30002 PATHOLOGY WILFRID PAT STAIN 2 & GROUP 1 CYTOLOGY MICROORGA LAB NISMS I&R SPCL STN 20022 PATHOLOGY WILFRID PAT 2 I&R 2 & EXCPT CYTOLOGY MICROORG/ LAB ENZYME/IM CYT ANES 19172 [facility] LOWER 2 ANESTH INTESTINE OF [place] [address] HYACINTH CLAROS ABDOMEN & 2 [facility] PELVIS INC INC W/O CONTRAST MATERIAL URNLS DIP 95042 OAKES OAKES 2 LC LC STICK/TAB LET RGNT NON-AUTO W/O MICRSCP DRUG SCR G0434 [facility] ABDI NOT 1 CHROMATOG RAPHIC; ANY NUMBER PT ENC PRESSURIZ 65363 HYACINTH CLAROS ED/NONPRE 1 [facility] SSURIZED INC INC INHALATIO N TREATMENT RADIOLOGI 39462 HYACINTH CLAROS C EXAM 1 [facility] CHEST 2 INC INC VIEWS FRONTAL&L ATERAL INJECTION 77657 [facility] ABDI 1 SINGLE/ML T TRIGGER POINT 3/> MUSCLES FLUOR 55934 [facility] ABDI NEEDLE/CA 1 TH SPINE/PAR ASPINAL DX/THER ADDON NJX 34530 [facility] ABDI DX/THER 1 SBST EPIDURAL/ SUBARACH LUMBAR/SA CRAL OPHTH 89983 JIMMIE BearTailEmbedded Chat MEDICAL 1 VISION ANG XM&EVAL COMPRE NEW PT 1/> VST MRI 10024 NEURODIAG TALANOW SPINAL 1 NOSTICPSC ROL CANAL LUMBAR W/O CONTRAST MATERIAL RADEX 47684 CENTRAL JARVIS SPINE 1 [place] LC LUMBOSACR ORTHOPAED AL 2/3 ICS PLC VIEWS PRESSURIZ 50327 HYACINTH CLAROS ED/NONPRE 1 [facility] SSURIZED INC INC INHALATIO N TREATMENT US BREAST 09699 HYACINTH CLAROS REAL 1 [facility] TIME INC INC W/[place] L[place] [address] CHIPPS KIRK ANNA SURG 1 KIAH & PATHOLOGY DUBILIER GROSS&ANNA ROSCOPIC EXAM HYSTEROSC 42410 [facility] OPY BX 1 [facility] ENDOMETRI CLINIC OF &/POLYP [place] C W/[place] D&[place] [address] HYACINTH CLAROS INFUSION 1 [facility] THERAPY INC INC PROPHYLAX IS/DX EA HOUR ANES 94576 [facility] KAITLIN HYSTEROSC 1 ANESTH ADRIANA OPY&/HYST OF THE EROSALPIN BLUE GOGRAPHY W/BX HYSTEROSC 6812 HYACINTH CLAROS OPY 1 [facility] INC INC OTHER 4697 HYACINTH CLAROS DILATION 1 [facility] AND INC INC CURETTAGE OF UTERUS BLOOD 64045 HYACINTH HYACINTH COUNT 1 [facility] COMPLETE INC INC AUTO&AUTO DIFRNTL WBC GONADOTRO 15111 HYACINTH HYACINTH PIN 1 [facility] [place] [address] [facility] TRANSVAGI 1 [facility] NAL CLINIC OF [place] IADNA 20869 PATHOLOGY PATHOLOGY CHLAMYDIA 0 & & CYTOLOGY CYTOLOGY TRACHOMAT LAB LAB IS AMPLIFIED PROBE TQ IADNA 37712 PATHOLOGY PATHOLOGY NEISSERIA 0 & & CYTOLOGY CYTOLOGY GONORRHOE LAB LAB AE AMPLIFIED PROBE TQ CYTP C/V 04377 PATHOLOGY PATHOLOGY AUTO THIN 0 & & LYR CYTOLOGY CYTOLOGY PREPJ SCR LAB LAB MNL RESCR PHYS INSERTION 72412 [facility] IMPLANTAB CLINIC OF LE [place] CONTRACEP TIVE CAPSULES ETONOGEST J7307 [facility] REL 0 [facility] CNTRACPT CLINIC OF IMPL SYS [place] INCL IMPL & SPL URINE 86833 [facility] 0 [facility] TEST CLINIC OF VISUAL [place] COLOR CMPRSN METHS URINE 45836 HYACINTH CLAROS 0 [facility] TEST INC INC VISUAL COLOR CMPRSN METHS RADIOLOGI 87250 HYACINTH CLAROS C EXAM 0 [facility] CHEST 2 INC INC VIEWS FRONTAL&L ATERAL URINE 78473 [facility], 9 [facility] J TEST CLINIC OF VISUAL COLOR [place] CMPRSN PLLC METHS INSERTION 82307 [facility], 9 [facility] J INTRAUTER CLINIC OF INE DEVICE [place] IUD PLLC LEVONORGE J7302 [facility], STREL-RLS 9 [facility] J E CLINIC OF INTRAUTER N [place] CNTRACPT PLLC 52 MG BLOOD 65830 HYACINTH CLAROS COUNT 9 [facility] COMPLETE INC INC AUTO&AUTO DIFRNTL WBC COMPREHEN 32442 HYACINTH CL[facility]OS SIVE 9 [facility] METABOLIC INC INC PANEL CYTP C/V 98209 PATHOLOGY PATHOLOGY AUTO THIN 9 & & LYR CYTOLOGY CYTOLOGY PREPJ SCR LAB LAB MNL RESCR [facility] 98705 [facility] NIKITA, DISCHARGE 9 CARE R [facility] ALMA ASSOCIATE MANAGEMEN S T 30 MIN/< SUBQ 76518 [facility] 9 CARE R [place] CARE PER ASSOCIATE DAY E/M S NORMAL CIRCUMCIS 17852 [facility] 9 CARE R [place] W/CLAMP/O [facility] DEV S W/BLOCK SUBQ 57368 [facility] 9 CARE R [place] CARE PER ASSOCIATE DAY E/M S NORMAL ANESTHESI 93129 [facility] [place] [place], A 9 ANESTH LESLEY F OF THE DELIVERY [place] ONLY 1ST 90721 [facility] NIKITA, HOSP/JIMBO 9 CARE R [facility] [place] [address] KING CARIAS, DELIVERY 9 ARETHA Andrade ONLY 43794 [facility], DELIVERY 9 [facility] J ONLY CLINIC OF W/POSTPAR IVAN CARE [place] PLL[facility] LOW 741 HYACINTH CLAROS CERVICAL 9 [place] [address] [facility], [facility] J UTERUS CLINIC OF LIMITED 1/> [place] FETUSES [facility] 15872 [facility], BIOPHYSIC 9 [facility] J AL CLINIC OF PROFILE W/O [place] NON-STRES PLLC S TESTING DOPPLER 34786 [facility], VELOCIMET 9 [facility] J RY CLINIC OF UMBILICAL ARTERY [place] [facility] DOPPLER 00278 [facility], VELOCIMET 9 [facility] J RY [facility] UMBILICAL ARTERY [place] PLL[facility] 50842 [facility], BIOPHYSIC 9 [facility] J AL CLINIC OF PROFILE W/O [place] NON-STRES [place] P[place] 48073 [facility], UTERUS 9 [facility] J REAL TIME CLINIC OF F/U TRNSABDL [place] PER FETUS PLLC 66893 [facility], BIOPHYSIC 9 [facility] J AL CLINIC OF PROFILE W/[place] [address] [facility], 9 [facility] J UTERUS CLINIC OF LIMITED 1/> [place] FETUSES [facility] DOPPLER 68479 [facility], VELOCIMET 9 [facility] J RY [facility] UMBILICAL ARTERY [place] [facility] DOPPLER 29549 [facility], VELOCIMET 9 [facility] J RY [facility]MBILICAL ARTERY [place] [address] HYACINTH CLAROS BLOOD/URI 9 [facility] C ACID INC INC THROMBOPL 67195 [facility]IN[facility] CL[facility]OS ASTIN 9 [facility] TIME INC INC PARTIAL PLASMA/WH OLE BLOOD BASIC 95244 HYACINTH CL[facility] METABOLIC 9 [facility] PANEL INC INC CALCIUM TOTAL TRANSFERA 59652 HYACINTH CLAROS SE 9 [facility] ASPARTATE INC INC AMINO AST SGOT TRANSFERA 44669 HYACINTH CLAROS SE 9 [facility] ALANINE INC INC AMINO ALT SGPT 26883 [facility], BIOPHYSIC 9 [facility] AL CLINIC OF PROFILE W/O [place] NON-STRES PLLC S TESTING BLOOD 23859 HYACINTH CLAROS COUNT 9 [facility] COMPLETE INC INC AUTO&[place] [address]76 [facility], UTERUS 9 [facility] TASHA J REAL TIME CLINIC OF F/U TRNSABDL [place] PER FETUS [facility] FIBRIN 90573 HYACINTH CLAROS DGRADJ 9 [facility] PRODUCTS INC INC D-DIMER QUAL/SEMI LACI FIBRINOGE 88900 HYACINTH CLAROS N 9 [facility] ACTIVITY INC INC PROTHROMB 07097 HYACINTH CLAROS IN TIME 9 [facility] INC INC 09550 HYACINTH CLAROS NONSTRESS 9 [facility] TEST INC INC URNLS DIP 51642 HYACINTH CLAROS 9 [facility] STICK/TAB INC INC LET REAGENT AUTO MICROSCOP Y OBSERVATI 82741 KING CARIAS, ON/INPATI 9 ARETHA Andrade [facility] CARE 55 MINUTES DOPPLER 01028 [facility], VELOCIMET 9 [facility] J RY CLINIC OF UMBILICAL ARTERY [place] [facility] BLD GLU A4253 [facility] TEST/REAG 9 PHARMACY PHARMACY T STRIPS #591 #591 HOME BLD GLU MON-50 [place] PREG 74356 [facility], UTERUS 9 [facility] J REAL TIME CLINIC OF F/U TRNSABDL [place] PER FETUS PLLC 54533 [facility], BIOPHYSIC 9 [facility] J AL CLINIC OF PROFILE W/O [place] [facility]ES [facility] 29867 [facility], BIOPHYSIC 9 [facility] J AL CLINIC OF PROFILE W/O [place] NON-STRES [facility] [place] 02793 [facility], UTERUS 9 [facility] J REAL TIME CLINIC OF F/U TRNSABDL [place] PER FETUS PLLC CUL BACT 80299 COMBINED COMBINED XCPT 9 PHYSICIAN PHYSICIAN URINE S LAB S LAB BLOOD/STO OL AEROBIC ISOL DOPPLER 19344 [facility], VELOCIMET 9 [facility] J RY CLINIC OF UMBILICAL ARTERY [place] [facility] DOPPLER 66703 [facility], VELOCIMET 9 [facility] J RY CLINIC OF UMBILICAL ARTERY [place] [facility] US PREG 32910 [facility], UTERUS 9 [facility] J REAL TIME CLINIC OF F/U TRNSABDL [place] PER FETUS PLLC 15907 [facility], BIOPHYSIC 9 [facility] J AL CLINIC OF PROFILE W/O [place] NON-STRES [facility] [place] [address]255 KRAFT, UTERUS 9 FADI R REAL TIME DIAGNOSTI F/U CCENTER TRNSABDL PER FETUS CUL BACT 90224 COMBINED COMBINED XCPT 9 PHYSICIAN PHYSICIAN URINE S LAB S LAB BLOOD/STO OL AEROBIC ISOL ANTIBODY 05676 COMBINED COMBINED CHLAMYDIA 9 PHYSICIAN PHYSICIAN S LAB S LAB US PREG 52100 [facility] UTERUS 9 [facility] REAL TIME HOSP HOSP F/U TRNSABDL PER FETUS RADIOLOGI 82166 HYACINTH Willams 9 [facility] EXAMINATI INC INC ON CHEST SINGLE VIEW FRONTAL 94428 [facility], NONSTRESS 9 [facility] J TEST CLINIC OF [facility] 71594 [facility], NONSTRESS 9 [facility] J TEST CLINIC OF [facility] URNLS DIP 11247 HYACINTH HYACINTH 9 [facility] STICK/TAB INC INC LET REAGENT AUTO MICROSCOP Y US PREG 19402 [facility] UTERUS 9 [facility] REAL TIME HOSP HOSP F/U TRNSABDL PER FETUS BLD GLU A4253 [facility] TEST/REAG 8 PHARMACY PHARMACY T STRIPS #591 #591 HOME BLD GLU MON-50 DIAB G0109 [facility] SELF-MGMT 8 [facility] TRN [facility] HOSP GROUP SESSION PER 30 MIN US PREG 87953 [facility] UTERUS 8 [facility] W/DETAIL HOSP [place]OSP [place] [address] [place] [address] LABONE OF LABONE OF ESTRIOL 8 Curalate [facility] INC ALPHA-FET 80351 [facility] OF LABONE OF OPROTEIN 8 [facility] SERUM URNLS DIP 35330 DHS/CO [facility] HEALTH CO HEALTH STICK/TAB [facility] LET RGNT BANK ACCT NON-AUTO W/O MICRSCP GONADOTRO 00698 [facility] PIN 8 [facility] CHORIONIC QUANTITAT ROSS URNLS DIP 59590 DHS/CO HYACINTH 8 HEALTH CO HEALTH STICK/TAB [facility] LET RGNT BANK ACCT NON-AUTO W/O MICRSCP GLUC BLD 47496 DHS/CO [facility] GLUC MNTR 8 [facility] DEV [facility] CLEARED BANK ACCT FDA SPEC HOME USE CYTP 75077 DHS/CO [facility] CERV/VAG 8 [facility] AUTO THIN [facility] LAYER BANK ACCT PREP MNL SCREEN ANTIBODY 18096 [facility]ONE OF SCREEN [address] [place] [address] RBC EACH SERUM TECHNIQUE BLOOD 77309 [facility] TYPING 8 [facility] SEROLOGIC ABO BLOOD 45609 [facility] TYPING [address] [place] [address] SEROLOGIC RH (D) SYPHILIS 85750 DHS/CO HY[facility] TEST [address] [place] [address] NON-TREPO [facility] NEMAL BANK ACCT ANTIBODY QUAL COLLECTIO 61789 DHS/CO HYACINTH N VENOUS [address] [place] [address] BLOOD [facility] VENIPUNCT BANK ACCT URE IADNA 24519 [facility] HY[facility]INTH NEISSERIA [address] [place] [address] GONORRHOE BANK ACCT AE AMPLIFIED PROBE TQ ANTIBODY 73539 [facility] RUBELLA [address] [place] [address] BANK ACCT IADNA 15510 [facility] HY[facility] CHLAMYDIA [address] [place] [address] TRACHOMAT BANK [place] [address] [facility] HYACIN[facility] HEPATITIS [address] [place] [address] B [facility] SURFACE BANK ACCT ANTIGEN GONADOTRO 44867 HYACINTH CLAROS PIN 8 [facility] CHORIONIC INC [place] PREG 29166 HYACINTH CLAROS UTERUS 8 [facility] REAL TIME INC INC W/IMAGE DCMTN TRANSVAG BLOOD 03230 [facility] COUNT 8 [facility] COMPLETE INC INC AUTO&AUTO DIFRNTL WBC CULTURE 52240 HYACINTH GARCIAON BACTERIAL 8 [facility] INC INC QUANTTATI VE COLONY COUNT URINE URNLS DIP 63516 HYACINTH CLAROS 8 [facility] STICK/TAB INC INC LET REAGENT AUTO MICROSCOP Y URNLS DIP 70360 HYACINTH HYACINTH 8 [facility] STICK/TAB INC INC [place] [address] HYACINTH GARCIAON AMYLASE 8 [facility] INC INC CULTURE 35993 HYACINTH CLAROS BACTERIAL 8 [facility] INC INC QUANTTATI VE COLONY COUNT URINE COMPREHEN 44454 HYACINTH CLAROS SIVE 8 [facility] METABOLIC INC INC PANEL BLOOD 61127 HY[facility]IN[facility] CL[facility]OS COUNT 8 [facility] COMPLETE INC INC AUTO&[place] P[place] 56195 ROOSEVELTY GINGER, UTERUS 8 MEDICAL SHANELLE REAL TIME IMAGING W/IMAGE ASSOCIATE DCMTN S TRANSVAG URINE 56406 HYACIN[facility] CLAROS 8 [facility] TEST INC INC [place] [address] HYACINTH CLAROS LIPASE 8 [facility] INC INC Encounters Encounter Start End Date Code Location Performer Type Date OFFICE 47171 [facility] OUTPATIEN 7 7 DIABETIC T VISIT CENTER, 25 P MINUTES OFFICE 01350 JAQUELIN VILLEGAS OUTPATIEN 7 7 N FAMILY T VISIT CHIROPRAC 10 T MINUTES OFFICE 35553 [place] AM[facility]AD OUTPATIEN 6 6 DIABETIC T VISIT CENTER, 15 P MINUTES HOSPITAL HYACIN[facility] - 6 6 [facility] OUTPATIEN INC T OFFICE 55356 [facility] JEANINE OUTPATIEN 6 6 PHYSICIAN T VISIT S GROUP 25 MINUTES OFFICE 69555 [place] AM[facility]AD OUTPATIEN 6 6 DIABETIC T VISIT CENTER, 25 P MINUTES OFFICE 80397 OLYA DOBSON OUTPATIEN 6 6 [facility]ES [facility] HYAC[facility] - 6 6 [facility] OUTPATIEN INC T OFFICE 88136 [place] [facility] SOB OUTPATIEN 6 6 DIABETIC T VISIT CENTER, 25 P MINUTES OFFICE 88856 [place] AMJAD SOB OUTPATIEN 6 6 DIABETIC T VISIT 5 CENTER, MINUTES P OFFICE 90070 JAQUELIN VILLEGAS OUTPATIEN 6 6 N FAMILY RANDY T VISIT CHIROPRAC 10 T MINUTES OFFICE 35555 OLYA DOBSON OUTPATIEN 6 6 [facility] T VISIT 15 MINUTES OFFICE 02846 [facility] LARA OUTPATIEN 6 6 PHYSICIAN DANIKA T VISIT S GROUP 15 MINUTES OFFICE 76567 OLYA DOBSON OUTPATIEN 6 6 [facility] T VISIT 15 MINUTES OFFICE 49573 [facility]ATE[facility] AMJAD SOB OUTPATIEN 6 6 DIABETIC T VISIT CENTER, 15 P MINUTES EMERGENCY 53269 JUSTINA SANCHEZ 5 5 PHYSICIAN DEPARTMEN S, PLLC T VISIT HIGH/URGE NT SEVERITY OFFICE 16702 OLYA DOBSON OUTPATIEN 5 5 [facility] T VISIT 15 MINUTES OFFICE 49275 LEODANSARAI VILLEGAS OUTPATIEN 5 5 N FAMILY RANDY T VISIT CHIROPRAC 10 T MINUTES OFFICE 59033 [place] JOANCASPER SOB OUTPATIEN 5 5 DIABETIC T VISIT CENTER, 25 P MINUTES OFFICE 16384 [facility] LARA OUTPATIEN 5 5 PHYSICIAN DANIKA T VISIT S GROUP 15 MINUTES EMERGENCY 46520 [facility] 5 5 [facility] DEPARTMEN INC T VISIT LIMITED/M INOR PROB EMERGENCY 73691 JUSTINA TELLEZ 5 5 PHYSICIAN DEPARTMEN S, PLLC T VISIT MODERATE SEVERITY HOSPITAL HYACINTH - 5 5 [facility] OUTPATIEN INC T HOSPITAL HYACIN[facility] - 5 5 [facility] OUTPATIEN INC T HOSPITAL HYACINTH - 5 5 [facility] OUTPATIEN INC T EMERGENCY 27773 JUSTINA SOLORZANO 5 5 PHYSICIAN ANNA DEPARTMEN S, PLLC T VISIT HIGH/URGE NT SEVERITY EMERGENCY 70150 [facility]INTH 5 5 [facility] DEPARTMEN INC T VISIT MODERATE SEVERITY HOSPITAL HYACINTH - 5 5 [facility] OUTPATIEN INC T HOSPITAL HYACINTH - 5 5 [facility] OUTPATIEN INC T HOSPITAL HYACINTH - 5 5 [facility] OUTPATIEN INC T OFFICE 10960 [facility] PEDROZA OUTPATIEN 5 5 FOOT & N SHABNAM T VISIT ANKLE CE 15 MINUTES OFFICE 58201 OLYA DOBSON OUTPATIEN 5 5 [facility] T VISIT 15 MINUTES OFFICE 13121 MATEO FOY OUTPATIEN 5 5 DIABETIC R TAR T VISIT CENTER 25 MINUTES EMERGENCY 34414 JUSTINA SOLORZANO 5 5 PHYSICIAN ANNA DEPARTMEN S, PLLC T VISIT MODERATE SEVERITY OFFICE 60957 [facility] SCHULSTAD OUTPATIEN 5 5 PHYSICIAN CAM T VISIT S GROUP 10 MINUTES HOSPITAL HYACINTH - 5 5 [facility] OUTPATIEN INC T OFFICE 96828 [facility] OJEDA OUTPATIEN 5 5 PHYSICIAN MARGOTH T VISIT S GROUP 15 MINUTES OFFICE 52954 [facility] SCHULSTAD OUTPATIEN 5 5 PHYSICIAN CAM T VISIT S GROUP 15 MINUTES EMERGENCY 93765 JUSTINA SOLORZANO 5 5 PHYSICIAN ANNA DEPARTMEN S, PLLC T VISIT HIGH/URGE NT SEVERITY OFFICE 45467 [facility] OJEDA OUTPATIEN 5 5 PHYSICIAN MARGOTH T VISIT S GROUP 15 MINUTES OFFICE 12451 [facility] OJEDA OUTPATIEN 5 5 PHYSICIAN MARGOTH T NEW 20 S GROUP MINUTES HOSPITAL HYACINTH - 5 5 [facility] OUTPATIEN INC T EMERGENCY 02351 JUSTINA ULLOA 5 5 PHYSICIAN LINARES DEPARTMEN S, PLLC T VISIT HIGH/URGE NT SEVERITY OFFICE 20447 OLYA DOBSON OUTPATIEN 5 5 [facility] T VISIT 15 MINUTES HOSPITAL HYACINTH - 5 5 [facility] OUTPATIEN INC T OFFICE 86222 MATEO COBIAN SOB OUTPATIEN 5 5 DIABETIC T VISIT CENTER, 25 P MINUTES OFFICE 70505 [facility] YMAN OUTPATIEN 5 5 PHYSICIAN EUG T VISIT S GROUP 10 MINUTES OFFICE 93168 [facility] JEANINE OUTPATIEN 5 5 PHYSICIAN ANNA T VISIT S GROUP 15 MINUTES OFFICE 32402 HYACINTH JIMENEZRON OUTPATIEN 5 5 [facility]IAL ANNA T VISIT HOSPITAL 15 MINUTES OFFICE 61756 MATEO COBIAN SOB OUTPATIEN 5 5 DIABETIC T VISIT CENTER [address]ES [address] PEDROZA OUTPATIEN 5 5 DANIEL Leon SHABNAM T VISIT MIRTA 15 DPM PSC MINUTES OFFICE 85025 OLYA DOBSON OUTPATIEN 5 5 [facility] T VISIT 15 MINUTES HOSPITAL HYACINTH - 5 5 [facility] OUTPATIEN INC T HOSPITAL CENTRAL - 5 5 [facility] OUTPATIEN HOSP T OFFICE 57089 [facility] OUTPATIEN 5 5 HEALTH AYAD T VISIT MEDICAL 40 GROUP MINUTES OFFICE 78110 JAQUELIN VILLEGAS OUTPATIEN 5 5 N FAMILY RANDY T VISIT CHIROPRAC 10 T MINUTES OFFICE 87985 [facility] LARA OUTPATIEN 4 4 PHYSICIAN DANIKA T VISIT S GROUP 15 MINUTES OFFICE 10340 OLYA DOBSON OUTPATIEN 4 4 [facility] T VISIT 15 MINUTES OFFICE 77684 [facility] JONES TRA OUTPATIEN 4 4 [place] T VISIT ORTHOPAED 15 ICS PLC MINUTES OFFICE 16702 [facility] CONSULTAT 4 4 NEUROLOGY AYAD ION NEW/ESTAB CONSULTAN PATIENT T 60 MIN OFFICE 45642 [facility] OUTPATIEN 4 4 PHYSICIAN T VISIT S GROUP 25 MINUTES OFFICE 38511 OLYA DOBSON OUTPATIEN 4 4 [facility] T VISIT 15 MINUTES OFFICE 49810 CEN[facility] JONES TRA OUTPATIEN 4 4 [place] T VISIT ORTHOPAED 15 [facility] MINUTES OFFICE 48695 OLYA DOBSON OUTPATIEN 4 4 [facility] T VISIT 15 MINUTES EMERGENCY 70009 [facility] 4 4 TRUDI DEPARTMEN EMERGENCY T VISIT PHYS HIGH/URGE NT SEVERITY OFFICE 31795 [place] RICHARDSO OUTPATIEN 4 4 FOOT & N SHABNAM T VISIT ANKLE CE 15 MINUTES OFFICE 94587 JONES TRA JONES TRA OUTPATIEN 4 4 T VISIT 15 MINUTES OFFICE 65929 [place] RICHARDSO OUTPATIEN 4 4 FOOT & N SHABNAM T NEW 30 ANKLE CE MINUTES OFFICE 00885 OLYA LYNNPATIEN 4 4 [facility] T VISIT 15 MINUTES OFFICE 47289 BAKARI PAL 4 4 RANDY RANDY T VISIT 10 MINUTES EMERGENCY 52588 JEANINE RICHARDSONEY 4 4 ANNA ANNA DEPARTMEN T VISIT HIGH/URGE NT SEVERITY OFFICE 05719 OLYA PAL 4 4 [facility] T VISIT 15 MINUTES OFFICE 70851 BAKARI PAL 4 4 RANDY RANDY T VISIT 10 MINUTES OFFICE 89079 BAKARI PAL 4 4 RANDY RANDY T VISIT 10 MINUTES OFFICE 40246 MARCO PAL 4 4 DANKIA DANIKA T VISIT 15 MINUTES HOSPITAL HYACINTH - 4 4 [facility] OUTPATIEN INC T OFFICE 72972 BAKARI LYNNPATINICHOLAS 4 4 RANDY RANDY T NEW 30 MINUTES OFFICE 91137 [facility]A PAL 4 4 [facility] T VISIT 15 MINUTES OFFICE 67327 OLYA DOBSON OUTPATINICHOLAS 4 4 [facility] T VISIT 15 MINUTES OFFICE 17620 OLYA OLYA OUTPATIEN 4 4 [facility] T VISIT 15 MINUTES PERIODIC 71752 [facility] LARA PREVENTIV 4 4 DANIKA DANIKA E MED EST PATIENT 18-39 YRS OFFICE 01080 OLYA DOBSON OUTPATIEN 3 3 [facility] T VISIT 15 MINUTES EMERGENCY 92452 PARISH NESBITT 3 3 DEPARTMEN T VISIT MODERATE SEVERITY OFFICE 90103 ADEOLA ANT ADEOLA ANT OUTPATIEN 3 3 T VISIT 15 MINUTES OFFICE 94967 OLYA DOBSON OUTPATINICHOALS 3 3 [facility] T VISIT 15 MINUTES EMERGENCY 11103 JEANINE SOLORZANO 3 3 ANNA ANNA DEPARTMEN T VISIT HIGH/URGE NT SEVERITY HOSPITAL HYACINTH - 3 3 [facility] OUTPATIEN INC T OFFICE 86509 ADEOLA ANT ADEOLA ANT OUTPATIEN 3 3 T VISIT 25 MINUTES OFFICE 49806 WILMER MUÑIZ OUTPATIEN 3 3 T VISIT 25 MINUTES H[facility] - 3 3 [facility] T EMERGENCY 05946 [facility] 3 3 [facility] DE[facility] T VISIT MODERATE SEVERITY EMERGENCY 89897 LUZ ESCOBAR DEPT 3 3 III FIDE III FIDE VISIT HIGH SEVERITY& THREAT FUN [facility] - 3 3 [facility] T OFFICE 16509 [facility] PAL 3 3 [facility] T [facility] 15 MINUTES OFFICE 41149 [facility] PAL 3 3 [facility] T VISIT 15 MINUTES OFFICE 44647 WILMER MUÑIZ OUTPATIEN 3 3 T VISIT 15 MINUTES [facility] - 3 3 [facility] T OFFICE 62880 ADEOLA VILLALTA ADEOLA ANT OUTPATIEN 3 3 T VISIT 25 MINUTES EMERGENCY 80781 SHAUN RASHID DEPT 3 3 EMERGENCY FIDE VISIT SERVICES HIGH SEVERITY& THREAT FUNCJ EMERGENCY 11514 [facility] 3 3 [facility] T VISIT LOW/MODER SEVERITY [facility] - 3 3 [facility] T OFFICE 85244 WLIMER MUÑIZ OUTPATIEN 2 2 T VISIT 15 MINUTES OFFICE 88529 [facility] DOBSON OUTPATIEN 2 2 [facility] 15 MINUTES OFFICE 08138 [facility] DOBSON OUTPATIEN 2 2 [facility] T VISIT 15 MINUTES OFFICE 66631 [facility]DE[facility]A AMBAR ADEOLA ANT OUTPATIEN 2 2 T VISIT 15 MINUTES [facility] 75647 MARCO LARA PREVENTIV 2 2 DANIKA DANIKA E MED EST PATIENT 18-39 YRS OFFICE 71661 [facility] OUTPATI[facility] 2 2 [facility] SLEEP T VISIT AND REHA 10 MINUTES [facility]OS[facility] - 2 2 [facility] T OFFICE 48055 [facility] DOBSON OUTPATIEN 2 2 [facility] 15 MINUTES OFFICE 24920 WILMER MUÑIZ OUTPATIEN 2 2 T VISIT 25 MINUTES OFFICE 85485 [facility]CO LARA OUTPATIEN 2 2 DANIKA DANIKA T VISIT 15 MINUTES [facility]OS[facility] - 2 2 [facility] T OFFICE 27038 [facility] DOBSON OUTPATIEN 2 2 [facility] T [facility]ISIT 15 MINUTES OFFICE 04447 COMMONMARCELINA RICH II OUTPATIEN 2 2 [facility] SLEEP VINCENT T NEW 30 AND REHA MINUTES OFFICE 76192 [facility] DOBSON OUTPATIEN 2 2 [facility] T VISIT 15 MINUTES OFFICE 76817 MARCO LARA OUTPATIEN 2 2 DANIKA DANIKA T VISIT 25 MINUTES [facility]OSP[facility] - 2 2 [facility] T OFFICE 41559 [facility]ILMER GUILLEN ANTONINO OUTPATIEN 2 2 T NEW 45 MINUTES OFFICE 35919 ADEOLA ANT ADEOLA ANT OUTPATIEN 2 2 T VISIT 25 MINUTES OFFICE 09134 SAMARIA MERA LANI OUTPATIEN 2 2 T NEW 30 MINUTES OFFICE 04256 WHDYLAN LANI WHANG LANI CONSULTAT 2 2 ION NEW/ESTAB PATIENT 40 MIN OFFICE 05549 JONES TRA JONES TRA OUTPATIEN 2 2 T VISIT 15 MINUTES OFFICE 14953 JONES TRA JONES TRA OUTPATIEN 2 2 T VISIT 10 MINUTES OFFICE 50596 JONES TRA JONES TRA OUTPATIEN 2 2 T VISIT 15 MINUTES OFFICE 18106 [facility] DOBSON OUTPATIEN 2 2 [facility]ES [facility] - 2 2 [facility] T OFFICE 18639 [facility] OUTPAT[facility] 2 2 T VISIT 15 MINUTES OFFICE 66545 ADEOLA ANT ADEOLA ANT OUTPATIEN 2 2 T VISIT 25 MINUTES OFFICE 67217 [facility] OUT[facility] 2 2 T VISIT 15 MINUTES EMERGENCY 90579 [facility] 2 2 [facility] DEPART[facility] INC T VISIT MODERATE SEVERITY EMERGENCY 45208 SHAUN CORLEY BAB DEPT 2 2 EMERGENCY VISIT SERVICES HIGH SEVERITY& THREAT [facility] - 2 2 [facility]PAT[facility] T OFFICE 36239 ADEOLA ANT ADEOLA ANT OUTPATIEN 2 2 T NEW 45 MINUTES OFFICE 61858 JEANINE SOLORZANO OUTPATIEN 2 2 ANNA ANNA T NEW 20 MINUTES OFFICE 82895 [facility] 2 2 T VISIT 15 MINUTES [facility] - 2 2 [facility] T OFFICE 33086 [facility] OUTPATIEN 2 2 [facility]ITAL MINUTES P OFFICE 67900 [facility] DOBSON OUTPATIEN 1 1 [facility] 15 MINUTES OFFICE 26301 [facility] 1 1 T VISIT 15 MINUTES OFFICE 99199 [facility] 1 1 T VISIT 15 MINUTES EMERGENCY 26394 [facility] 1 1 [facility] DE[facility] T VISIT MODERATE SEVERITY [facility] - 1 1 [facility] T EMERGENCY 68601 LIANG MARGOTH LIANG MARGOTH 1 1 DEPARTMEN T VISIT HIGH/URGE NT SEVERITY OFFICE 61284 [facility] 1 1 T VISIT 15 MINUTES OFFICE 11697 [facility] 1 1 T VISIT 15 MINUTES OFFICE 50746 [facility] 1 1 T VISIT 15 MINUTES OFFICE 99097 [facility] 1 1 T VISIT 15 MINUTES OFFICE 44151 [facility] LYNNPATIEN 1 1 [facility] 15 MINUTES OFFICE 23231 [facility] OUTPATIEN 1 1 [place] [facility] V[facility]OP[facility]ED 15 [facility] MINUTES OFFICE 79262 [facility] CONSULTAT 1 1 [place] [facility] [place] NEW/ESTAB [facility] PATIENT 40 MIN [facility]PITAL HYACINTH - 1 1 [facility] OUTPATIEN [facility] T EMERGENCY 23084 SHAUN PEREYRA 1 1 EMERGENCY [facility] SERVICES T VISIT HIGH/URGE NT SEVERITY EMERGENCY 14663 HYACINTH 1 1 [facility] T VISIT MODERATE SEVERITY HOSPITAL HYACIN[facility] - 1 1 [facility] OFFICE 33926 [facility] L[facility] OUT[facility] 1 1 [facility] T VISIT CLINIC OF 15 [place] MINUTES EMERGENCY 85115 SHAUN ESCOBAR 1 1 EMERGENCY III [facility] EMERGENCY DEPARTMENT SERVICES T VISIT HIGH/URGE NT SEVERITY EMERGENCY 74246 HYACINTH 1 1 [facility]GENC[facility] DEPARTMENT INC T VISIT LOW/MODER SEVERITY HOSPITAL HYACINTH - 1 1 [facility] OFFICE 11330 [facility] OUTPATI[facility] 1 1 [facility] T VISIT CLINIC OF 15 [place]OL[place] MINUTES HOSPITAL HYACIN[facility] - 1 1 [facility] OUTPATIEN [facility] HOSPITAL HYACINTH - 1 1 [facility] OUTPATIEN [facility] T OFFICE 97742 OLYA DOBSON OUTPATIEN 1 1 [facility] MIN[facility]ES OFFICE 48009 [facility] OUTPATI[facility] 1 1 [facility] T VISIT CLINIC OF 15 [place] MINUTES [facility] 44506 W[facility] PREVENTIV 0 0 [facility] E MED EST CLINIC OF PATIENT ROLAND 18-39 YRS EMERGENCY 06690 [facility]IN[facility] 0 0 [facility] LOW/MODER SEVERITY HOSPITAL [facility]IN[facility] - 0 0 [facility] EMERGENCY 56074 SHAUN MARCO ANTONIONETTIE 0 0 EMERGENCY III, DEPARTMEN SERVICES LESLEY T VISIT HIGH/URGE ASSOCIATE NT S SEVERITY OFFICE 62543 [facility], OUTPATIEN 9 9 [facility] J T VISIT CLINIC OF 15 MINUTES [facility] EMERGENCY 64723 HYACINTH 9 9 [facility] T VISIT LIMITED/M INOR PROB EMERGENCY 60626 SHAUN MARY, 9 9 EMERGENCY GOSIA R DEPARTMEN SERVICES T VISIT HIGH/URGE ASSOCIATE NT S [facility] HOSPITAL HYACINTH - 9 9 [facility] 35435 [facility], [facility] 9 9 [facility] J T VISIT CLINIC OF 25 MINUTES [facility] HYACINTH - 9 9 [facility] 19329 [facility], OUTPAT[facility]EN 9 9 [facility] J T VISIT CLINIC OF 15 MINUTES [facility] HYACINTH - 9 9 [facility] HYACINTH [facility] 9 9 [facility] 9 9 [facility] - 9 9 [facility] T OFFICE 76841 [facility], OUTPATIEN 9 9 [facility] J T VISIT CLINIC OF 15 MINUTES [facility] OFFICE 55945 [facility], OUTPATIEN 9 9 [facility] J T VISIT CLINIC OF 15 MINUTES [facility] CENTRAL - 9 9 [facility] OUTPATIEN [facility] T OFFICE 59183 MEET, CONSULTAT 9 9 SHANELLE ION DIAGNOSTI A NEW/ESTAB CCENTER PATIENT 15 MIN OFFICE 35206 ARIADNA ROSENTHAL OUTPATIEN 9 9 Kaylie DOMINGUEZ JR, J V T VISIT 15 MINUTES HOSPITAL [facility] - 9 9 [facility] INC T EMERGENCY 37156 MILLERCRISTINA SOLORZANO, 9 9 [facility] T VISIT ON MODERATE SEVERITY OFFICE 62948 [facility], OUT[facility] 9 9 [facility] J T VISIT CLINIC OF 15 MINUTES [facility] HYACINTH - 9 9 [facility] OUTPATIEN [facility] T OFFICE 46340 [facility] OUTPATIEN 9 9 [facility] J T VISIT CLINIC OF 15 MINUTES [facility] OFFICE 18039 [facility], OUTPATIEN 9 9 [facility] J T VISIT CLINIC OF 15 MINUTES [facility] HYACINTH - 9 9 [facility] OUTPATIEN [facility] T EMERGENCY 61921 HYACINTH 9 9 [facility] T VISIT LIMITED/M INOR PROB EMERGENCY 59431 ANGELA MAL, 9 9 [facility] T VISIT ON HIGH/URGE NT SEVERITY HOSPITAL HYACINTH - 9 9 [facility] OUTPATIEN INC T HOSPITAL CENTRAL - 9 9 [facility] HOSP T OFFICE 75346 ARIADNA ROSENTHAL OUTPATIEN 8 8 Kaylie DOMINGUEZ JR, J V T VISIT 15 MINUTES HOSPITAL [facility] - 8 8 [facility] OUT[facility] INC T EMERGENCY 42699 HYACINTH 8 8 [facility] DEPARTMEN INC T VISIT LIMITED/M INOR PROB HOSPITAL CENTRAL - 8 8 [facility] OUT[facility]IEN HOSP T OFFICE 75619 [facility] 8 8 [facility] T [facility] 10 BANK ACCT MINUTES OFFICE 59053 [facility] OUTPATIEN 8 8 [facility] T NEW 30 [facility] MINUTES [facility] ACCT EMERGENCY 38210 HYACINTH 8 8 [facility] DEPARTMEN INC T VISIT MODERATE SEVERITY HOSPITAL HYACINTH - 8 8 [facility] OUT[facility] T HOSPITAL HYACINTH - 8 8 [facility] OUT[facility] INC T EMERGENCY 55932 HYACINTH 8 8 [facility] DEPART[facility] INC T VISIT HIGH/URGE NT SEVERITY
[2016-08-24] MEDS ORDERED: FLONASE 50 MCG16 GM (21:03)
[2016-08-24] MEDS ORDERED: DOXYCYCLINE HY100 M4 PO (21:03)
--- NOTE | 2016-08-24 21:04 | Urgent Treatment Center Report ---
History of Present Issue Date/Time Seen by Provider 08/24/162051 Visit Reason Pt arrived:Walked Presenting Problem:PT FINISHED ANTIBIOTIC AND HAS VOMTING AND DIARRHEA Location if Accident: Onset of symptoms date/time:/ or onset unknown for:MEDICAL HX UNKNOWN Have you (or family members/close friends) recently traveled outside the [place]? N If Yes, where/when: Have you had exposure to infectious disease within the past month? TB? Other? Specify: c/o recurrent sinusitis. Seen 08/09 for same symptoms experiencing today, except diarrhea. Dx sinusitis. Rx augmentin and flonase. Reports symptoms resolved 2-3 days after starting antibiotic except the diarrhea that started around that time. However, once finishing the antibiotic 2-3 days ago per report, symptoms immediately returned. Pt was only prescribed 7 days of antibiotics and should have finished before 2-3 days ago. Admits she missed doses at times. c/o sinus pressure in forehead and cheeks, tenderness, frontal headaches, right ear pressure, purulent yellow sinus drainage causing her to vomit, occasional cough, intermittent sore throat. All symptoms worse at night. Diarrhea loose, brown, denies abnormal odor. No abdominal pain, cramping. Denies fever but has intermittent aches and "I am just so tired again". No known sick contacts. Hx of DM. BS currently >200 since feeling ill again. Source patient Exam Limitations no limitations ALLERGIES Coded Allergies: Honey Bee (BEE,HONEY) (Mild, 12/28/14) milk (Mild, 05/03/15) Uncoded Allergies: CONTRAST MEDIA (Mild, 05/03/15) TAPE (S-BLISTERING WELTS 04/13/11) DISHWASHING LIQUID (STATES IT EATS THE SKIN OFF HER HANDS 08/19/12) Home Medications Active Scripts Amoxicillin/Potassium Clav (Augmentin 875-125 Tablet) 1 EACH PO BID #14 TAB Prov: 08/09/16 Fluticasone Propionate (Flonase 50 Mcg Nasal Paden) 2 SPRAY NA DAILY #1 BOT Prov: 08/09/16 Ranitidine Hcl (Ranitidine 150MG) 150 MG PO DAILY #30 TAB Prov: 11/13/14 Reported Medications Metformin HCL (Metformin) 1,000 MG PO BID #60 TAB Albuterol Sulfate (Ventolin Hfa) 2 PUFFS IH PRN PRN SOA #18 LISINOPRIL (Lisinopril) 10 MG PO DAILY Meloxicam (Meloxicam 15MG) 15 MG PO DAILY #30 AMITRIPTYLINE HCL (Amitriptyline) 15 MG PO QHS History Medical History General CAD? No Angina: No AL: No Hypertension? Yes Hyperlipidemia? No CHF? No DVT? No PE? No COPD? No Asthma? Yes Anemia? No GERD? Yes Gastric ulcers? No GI Bleed? No Hernia? Yes Thyroid Problems? No Hypothyroidism? No CVA? No Seizures? No Diabetes? Yes Insulin Dependent: No Insulin Pump: No Home FSBS? No Renal Insuffiency? No UTI? No Stones? No BPH? No GB Disease: Yes Nephritic Syndrome? No Asplenia? No Hepatitis? No Sickle Cell Disease? No Arthritis? No Migraines? No Cataracts? No Glaucoma? No MRSA? No HIV? No TB? No Anxiety? No Depression? No Cancer? No More? Yes Additional hx: NEUROPATHY Immunization HX DT/Tetanus UNKNOWN Flu NEVER Pneumonia NEVER Surgical Hx Previous Surgery?Y CHOLECYSTECTOMY 2007 ERCP STENT REPLACEMENT& D & C C- SECTION 06/18/08 D&E Family History Family HX Diabetes Yes CAD No Hypertension Yes Hyperlipidemia Yes Cancer No TB No Social History Smoking Hx Smoker: Current Every Day Smoker Tobacco: Yes Type Cigarettes Packs/day 1 1/2 - 2 Packs Alcohol Alcohol: No Review of Systems All Other Systems Reviewed and Negative Constitutional see HPI Eyes denies drainage ENT see HPI, nose discharge. denies: ear discharge, nose congestion. Respiratory denies shortness of breath, denies wheezing Cardiovascular denies chest pain, denies palpitations Gastrointestinal see HPI Skin denies rash Psychiatric/Neurological see HPI, denies other (dizziness) Physical Exam Vital Signs Vital Signs Date Time Temp Pulse Resp B/P Pulse O2 O2 Flow FiO2 Ox Delivery Rate 08/24 2058 98.2 97 18 130/85 100 08/24 2052 98.2 97 18 130/ 100 General Appearance no apparent distress, obese Eye Exam - bilateral eye normal exam Ear, Nose, Throat marzena EACs and TMs normal, mild nasal congestion w/ swollen turbinates, cobblestoning without erythema in pharynx, moderate tenderness marzena frontal w/ mild tenderness marzena maxillary sinuses Neck non-tender, supple Respiratory Status No: respiratory distress, productive cough, non productive cough. Lung Sounds anterior: lungs clear. posterior: lungs clear. bilateral: lungs clear. Cardiovascular regular rate/rhythm, no peripheral edema, no murmur Gastrointestinal normal bowel sounds, non tender, soft Neurologic alert, oriented x 3 Mental status normal mood/affect Skin normal color, warm/dry Lymphatic no adenopathy Medical Decision Making LABS/Meds/Orders Pt receiving controlled substance in ED? No Departure Departure Time of Disposition 2056 Disposition DC Home or Self Care(routine) Clinical Impression Primary Impression: Sinusitis Qualifiers: Sinusitis location: other Chronicity: acute Recurrence: recurrent Qualified Code: J01.81 - Other acute recurrent sinusitis Condition STABLE Referrals Colby ENG,Satya Parr (Family) Follow up IMMEDIATELY for new or worsening symptoms OR no noticeable improvement over the next 3-4 days or if once symptoms resolve, they return again. 911 for difficulty breathing or swallowing. Patient Instructions DI for Sinusitis, Doxycycline Additional Instructions * Start antibiotic and be sure to take as ordered for the FULL length of time even if you feel better. Sinus infections do not get better overnight. It may take 2-3 days to notice much improvement so be sure to use conservative measures as discussed for symptoms. * Considered steroids PO but not at this time due to elevated blood sugars. * Flonase 2 sprays each nostril daily to help with nasal congestion, sinus and ear pressure/inflammation * Lots of fluids * Sleep elevated * Humidifier/vaporizer * sinus rinses Start probiotic immediately. Follow up if diarrhea continues/persist. Discharge Counseling Counseled pt/family regarding diagnosis, medications/RX, home care, follow up needs Prescriptions Current Visit Scripts Doxycycline Hyclate (Vibramycin) 100 MG PO BID #14 CAP Fluticasone Propionate (Flonase 50 Mcg Nasal Paden) 2 SPRAY NA DAILY #1 BOT at 2111
--- OUTSIDE RECORDS SUMMARY | 2016-08-24 21:05 | External Medical Summary Rpt ---
Demographics Preferred Language [place] Marital Status Unknown Rastafari Affiliation Unknown Race Unknown Ethnic Group Unknown Author Author , Organization [employer] Address Unknown Phone Unavailable Purpose Continuity of Care Document - through 2016 Immunization No patient found.
--- OUTSIDE RECORDS SUMMARY | 2016-08-24 21:05 | External Medical Summary Rpt ---
Demographics Preferred Language [place] Marital Status Unknown Adventism Affiliation Unknown Race Unknown Ethnic Group Unknown Author Author , Organization [employer] Address Unknown Phone Unavailable Purpose Continuity of Care Document - through 2016 Immunization No patient found.
== END 2016-08-24 21:05 | disposition home or self-care (01) ==
LOC: UTC 20:41
DX: J01.81 Other acute recurrent sinusitis (principal); I10 Essential (primary) hypertension; Z72.0 Tobacco use; K21.9 Gastro-esophageal reflux disease without esophagitis

== ENCOUNTER 2016-12-07 18:26 | Emergency (ER) | payer MEDICAID ==
[~2016-12-07] VITALS: Ht 170.2 cm; Wt 130.2 kg
[~2016-12-07 18:26] MED LIST changes: +DOXYCYCLINE HY100 M4 PO
--- OUTSIDE RECORDS SUMMARY | 2016-12-07 18:45 | External Medical Summary Rpt | CCD ---
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 5 CY MG OF TA BL CY ET NT HI AN A LI 68 06 07 30 30 00 HO Ac SI 00 -2 -2 .0 00 ME ti NO 10 0- 1- 00 06 TO ve MA 26 20 20 08 WN IL 80 17 17 37 8 80 PH 10 AR MA MG CY TA OF BL ET CY NT HI AN A ME 68 06 07 30 30 00 HO Ac LO 38 -1 -0 .0 00 ME ti XI 20 6- 7- 00 06 TO ve CA 05 20 20 08 WN M 10 17 17 91 15 5 82 PH AR MG MA CY TA BL OF ET CY NT HI AN A RA 68 06 07 60 30 00 HO Ac NI 46 -1 -0 .0 00 ME ti TI 20 3- 7- 00 06 TO ve DI 24 20 20 07 WN NE 80 17 17 79 5 52 PH 15 AR 0 MA MG CY TA OF BL ET CY NT HI AN A ME 68 05 06 60 30 00 HO Ac TF 38 -2 -2 .0 00 ME ti OR 20 4- 3- 00 06 TO ve SD 76 20 20 08 WN N 00 17 17 37 HC 5 79 PH L AR 1, MA 00 CY 0 MG OF TA CY BL NT ET HI AN A LI 68 05 06 30 30 00 HO Ac SI 00 -1 -0 .0 00 ME ti NO 10 8- 9- 00 06 TO ve MA 26 20 20 08 WN IL 80 [...] NT ET HI AN A FL 68 05 06 3. 3 00 HO Ac UC 46 -0 -0 00 00 ME ti ON 20 2- 2- 0 06 TO ve AZ 10 20 20 08 WN OL 34 17 17 25 E 0 83 PH 15 AR 0 MA MG CY TA OF BL ET CY NT HI AN A ME 68 04 05 21 6 00 HO Ac TH 00 -2 -1 .0 00 ME ti YL 10 5- 9- 00 06 TO ve MA 00 20 20 08 WN ED 50 17 17 57 NI 1 14 PH SO AR LO MA NE CY 4 OF MG CY DO NT SE HI PK AN A ME 68 04 05 60 30 00 HO Ac TF 38 -2 -1 .0 00 ME ti OR 20 4- 9- 00 06 TO ve SD 76 20 20 08 WN N 00 [...] 10 1- 5- 00 06 TO ve MA 26 20 20 08 WN IL 80 [...] 20 3- 4- 00 06 TO ve SD 76 20 20 08 WN N 00 [...] BL ET CY NT HI AN A NY 00 03 04 [address] 71 -1 -0 .0 00 ME ti AT 30 6- 7- 00 06 TO ve IN 67 20 20 08 WN 83 17 17 33 10 1 61 PH 0, AR 00 MA 0 CY UN IT OF /G M CY CR NT EA HI M AN A ST 00 08 04 24 [...] E NT HI AN A LI 68 03 [...] 20 2- 7- 00 06 TO ve SD 76 20 20 08 WN N 00 [...] 20 7- 0- 00 06 TO ve SD 76 20 20 07 WN N 00 17 17 34 HC 5 38 PH L AR 1, MA 00 CY 0 MG OF TA CY BL NT ET HI AN A LE 68 01 02 10 10 00 HO Ac VO 18 -1 -1 .0 00 ME ti FL 00 1- 0- 00 06 TO ve OX 24 20 20 07 WN AC 10 17 17 92 IN 8 93 PH AR 50 MA 0 CY MG OF TA BL CY ET NT HI AN A ME 68 01 [...] NT B HI AN A ME 68 12 01 60 30 00 HO Ac TF 38 -1 -1 .0 00 ME ti OR 20 4- 3- 00 06 TO ve SD 76 20 20 07 WN N 00 [...] OF ET CY NT HI AN A Ib 62 12 0 [...] 3- 6- 00 MA 88 LD ve SD 05 20 20 RT 9 N 06 [...] 3- 3- 00 MA 88 LD ve SD 05 20 20 RT 9 N 06 [...] Ac MA 14 -2 -2 .0 IN 92 ES ti OF 32 5- 5- 00 IC 41 TN ve LO 03 20 20 UT XA 70 11 11 PH CI 1 AR SD N MA CH HC CY AE L L 50 LL 0 C MG TA B MA 00 05 05 0 25 5 CL 23 CH Ac ED 05 -2 -2 .0 IN 92 ES ti NI 40 5- 5- 00 IC 42 TN ve SO 01 20 20 UT NE 72 11 11 PH 5 AR SD 10 MA CH CY AE MG L [...] C 00 05 05 0 10 2 AR 44 WE Ac 40 -0 -1 .0 L- 93 HR ti 60 9- 0- 00 MA 61 MA ve 35 20 20 RT 1 N 70 11 11 II 5 PH I AR WI MA LL CY IA # M E 10 05 91 ME 00 05 05 0 21 6 AR 71 WE Ac TH 60 -0 -1 .0 L- 18 HR ti YL 34 9- 0- 00 MA 65 MA ve MA 59 20 20 RT 2 N ED 31 11 11 II NI 5 PH I SO AR WI LO MA LL NE CY IA 4 # M E MG 10 05 DO 91 SE PK 00 05 05 0 15 5 AR 71 WE Ac 37 -0 -1 .0 L- 18 HR ti 80 9- 0- 00 MA 65 MA ve 75 20 20 RT 3 N 19 11 11 II 3 PH I AR WI MA LL CY IA # M E 10 05 91 AM 00 03 05 1 30 10 WA 71 AR Ac OX 78 -1 -0 [...] J CY #5 91 BUENROSTRO 53 05 05 00 14 7 [...] 93 HE 8 N 5- 32 5 00 04 05 00 30 2 WA 44 CL Ac 40 -2 -0 .0 L- 76 AR ti 60 1- 7- 00 MA 07 KE ve 35 20 20 RT 3 70 09 09 DE 5 PH RE AR K MA J CY #5 91 RA 00 10 05 04 60 30 WA 69 CL Ac NI 17 -2 -0 .0 L- 92 AR ti TI 24 4- 7- 00 MA 61 KE ve DI 35 20 20 RT 2 NE 77 08 09 DE 0 PH RE 15 AR K 0 MA J MG CY TA #5 BL 91 ET 59 10 04 05 30 30 WA [...] MG CY TA #5 BL 91 ET AZ 00 02 02 00 6. 5 WA 70 GA Ac IT 78 -0 -2 00 L- 07 IN ti HR 11 8- 6- 0 MA 21 EY ve OM 49 20 20 RT 7 YC 66 09 09 SD IN 8 PH CH AR AE 25 MA L 0 CY S MG #5 TA 91 BL ET ME 00 02 02 00 21 6 WA 70 GA Ac TH 60 -0 -2 .0 L- 07 IN ti YL 34 8- 6- 00 MA 21 EY ve MA 59 20 20 RT 8 ED 31 09 09 SD NI 5 PH CH SO AR AE LO MA L NE CY S 4 #5 MG 91 DO SE PK 59 10 02 03 30 30 WA 69 CL Ac 63 -2 -2 .0 L- 92 AR ti 00 4 6 00 MA 61 KE ve 41 20 20 RT 1 43 08 09 DE 5 PH RE AR K MA J CY #5 91 TE 51 01 01 01 20 3 WA 70 CL Ac RC 67 -0 -3 .0 L- 03 AR ti ON 21 9 0 00 MA 17 KE ve AZ 30 [...] -1 .0 L- 03 AR ti ON MA 17 KE ve AZ 30 20 20 RT 8 OL 20 09 09 DE E 0 PH RE 0. AR K 8% MA J CY CR EA #5 M 91 NA 00 12 01 00 17 30 WA 70 CA Ac SO 08 -2 -1 .0 L- 01 ST ti NE 51 9 5- 00 MA 64 IL ve X 28 20 20 RT 1 LO 50 80 08 09 1 PH JR MC AR J G MA V NA CY SA L #5 SP 91 RA Y LO 00 12 00 30 30 WA 88 CA Ac RA 78 -2 -1 .0 L- 13 ST ti TA 15 MA 27 IL ve DI 07 20 20 RT 8 LO NE 70 08 09 1 PH JR 10 AR J MA V MG CY TA #5 BL 91 ET CE 00 12 00 20 10 WA 70 CA Ac FD 78 -2 -1 .0 L- 01 ST ti IN 12 MA 64 IL ve IR 17 20 20 RT 0 LO 66 08 09 30 0 PH JR 0 AR J MG MA V CY CA PS #5 UL 91 E ME 00 02 20 00 21 6 WA 70 GO Ac TH 60 -0 -1 .0 L- 02 BL ti YL 34 3- 5- 00 MA 39 E ve MA 59 20 20 RT 1 RO ED 31 09 09 ND NI 5 PH AL SO AR E LO MA NE CY 4 #5 MG 91 DO SE PK 63 01 01 00 10 2 WA 44 GO Ac 30 -0 -1 .0 L- 73 BL ti 40 3- 5- 00 MA 33 E ve 56 20 20 RT 8 RO 00 09 09 ND 5 PH AL AR E MA CY #5 91 59 10 01 02 30 30 WA 69 CL Ac 63 -2 -1 .0 L- 92 AR ti 00 4- 5- 00 MA 61 KE ve 41 20 20 RT 1 43 08 09 DE 5 PH RE AR K MA J CY #5 91 FE 00 01 01 00 30 30 WA 88 CL Ac RR 67 -0 -1 .0 L- 13 AR ti OU 70 9- 5- 00 MA 33 KE ve S 07 20 20 RT 5 BUENROSTRO 01 09 09 DE LF 0 PH RE AT AR K E MA J 32 CY 5 MG #5 91 TA BL ET 00 12 01 00 18 7 WA 88 GA Ac 03 -1 -0 0. L- 13 IN ti 18 4- 1- 00 MA 21 EY ve 68 20 20 0 RT 8 51 08 09 SD 2 PH CH AR AE MA L CY S #5 91 ME 00 12 01 00 21 6 WA 69 GA Ac TH 60 -1 -0 .0 L- 99 IN ti YL 34 4- 1- 00 MA 82 EY ve MA 59 20 20 RT 7 ED 31 08 09 SD NI 5 PH CH SO AR AE LO MA L NE CY S 4 #5 MG 91 DO SE PK AZ 00 12 01 00 6. 5 WA 69 GA Ac IT 78 -1 -0 00 L- 99 IN ti HR 11 4- 1- 0 MA 82 EY ve OM 49 20 20 RT 8 YC 66 08 09 SD IN 8 PH CH AR AE 25 MA L 0 CY S MG #5 TA 91 BL ET RA 00 10 12 01 60 30 [...] MA J CY #5 91 59 10 12 01 30 [...] AR K MA J CY #5 91 Vital Signs 02-04-2013 21:04 Name Value [...] SerPl-c 22:25 Cnc LIPASE (11-25-2012 22:25) LIPASE 11-25- 104 U/L 73-393 complet 013 ed 22:25 CBC with AUTO DIFF (11-25-2012 22:25) WBC # 10-06-2 10.7 4.8-10. complet Bld 013 K/MM3 8 ed Auto 22:25 RBC # 1006-2 4.89 4.2-5.4 complet Bld 013 M/mm3 ed Auto 22:25 Hgb 06-2 14.9 12.2-16 complet Bld-mCn 013 g/dL .2 ed c 22:25 Hct Fr 11-25-2 43.1 % 37.0-47 complet Bld 013 .0 ed 22:25 MCV RBC 11-25-2 88.1 fl 82.2-97 complet 013 .8 ed 22:25 MCH RBC 11-25-2 30.4 pg 27-31.2 complet Qn 013 ed Auto 22:25 MEAN 11-25-2 34.5 31.8-35 complet CORPUSC 013 g/dl .4 ed ULAR 22:25 HGB CONC RDW RBC 11-25-2 14.0 % 11.5-17 complet Auto 013 .5 ed 22:25 Platele 11-25-2 302 142-424 complet t Bld 013 K/mm3 ed Ql 22:25 Manual MEAN 11-25-2 8.0 fl 7.4-10. complet PLATELE 013 4 ed T 22:25 VOLUME Granulo 11-25-2 67.1 % 37.0-80 complet cytes 013 .0 ed Fr Bld 22:25 Auto LYMPH % -06-2 25.8 % 10-50.0 complet 013 ed 22:25 Monocyt -06-2 4.5 % 1.7-9.3 complet es Fr 013 ed Bld 22:25 Auto Eosinop -06-2 2.1 % 0.1-12. complet hil Fr 013 0 ed Bld 22:25 Auto Basophi -06-2 0.4 % 0.1-2.0 complet ls Fr 013 ed Bld 22:25 Auto Granulo 10-06-2 7.2 1.8-7.8 complet cytes # 013 K/mm3 ed Bld 22:25 Auto Lymphoc 2 2.8 0.7-4.5 complet ytes Fr 013 K/mm3 ed Bld 22:25 Auto Monocyt 11-25-2 0.5 0.1-1.0 complet es # 013 K/mm3 ed Bld 22:25 Auto Eosinop 11-25-2 0.2 0.0-0.4 complet hil # 013 K/mm3 ed Bld 22:25 Auto Basophi 11-25-2 0.1 0-0.2 complet ls # 013 K/MM3 [...] SerPl-m 013 gm/dL ed Cnc 11:30 Albumin 08-19-2 3.6 3.4-5.0 complet 013 gm/dL ed SerPl-m 11:30 Cnc Globuli 08-19-2 4.0 1.3-3.2 complet n 013 gm/dL ed Ser-mCn 11:30 c Albumin 08-19-2 0.9 UNK 1.1-1.8 complet /Glob 013 ed SerPl-m 11:30 Rto Bilirub 08-19-2 0.3 0.2-1.0 complet 013 mg/dL ed SerPl-m [...] complet 013 .8 ed 11:30 MCH RBC 30-2 29.0 pg 27-31.2 complet Qn 013 ed [...] 013 #/hpf ed S CELLS 11:30 URINE 08-19-2 1+ O complet BACTERI 013 ed A 11:30 Procedures Procedure DOS Code Location Performer Comment HEMOGLOBI 56708 MATEO COBIAN N 7 DIABETIC GLYCOSYLA [facility] [place] [address] TRESA GARAY GLUTAMYLT 7 CECILIA CALLE MD,PSC GAMMA BLOOD 92529 TRESA GARAY COUNT 7 TRENTON CALLE MD,PSC AUTO&AUTO DIFRNTL WBC COMPREHEN 29609 TRESA GARAY SIVE 7 CHRISTIE CALLE MD,PSC PANEL DRUG TEST 86341 TRESA GARAY PRSMV 7 ASTRID CALLE MD,PSC CHEMISTRY ANALYZERS CHIROPRAC 08846 JAQUELIN VILLEGAS TIC 7 N FAMILY MANIPULAT CHIROPRAC ROSS TX T SPINAL 3-4 REGIONS CHIROPRAC 39518 JAQUELIN LONG TIC 7 N FAMILY MANIPULAT CHIROPRAC ROSS TX T SPINAL 3-4 REGIONS CHIROPRAC 47705 JAQUELIN V[place]LEGAS TIC 7 N FAMILY MANIPULAT CHIROPRAC ROSS TX T SPINAL 3-4 REGIONS CHIROPRAC 33894 JAQUELIN VILLEGAS TIC 7 N FAMILY MANIPULAT CHIROPRAC ROSS TX T SPINAL 3-4 REGIONS CHIROPRAC 33602 JAQUELIN VILLEGAS TIC 7 N FAMILY MANIPULAT CHIROPRAC ROSS TX T SPINAL 3-4 REGIONS CHIROPRAC 53356 JAQUELIN VILLEGAS TIC 7 N FAMILY MANIPULAT CHIROPRAC ROSS TX T SPINAL 3-4 REGIONS CHIROPRAC 16192 JAQUELIN VILLEGAS TIC 7 N FAMILY MANIPULAT CHIROPRAC ROSS TX T SPINAL 3-4 REGIONS CHIROPRAC 10168 JAQUELIN VILLEGAS TIC 7 N FAMILY MANIPULAT CHIROPRAC ROSS TX T SPINAL 3-4 REGIONS CHIROPRAC 04740 JAQUELIN VILLEGAS TIC 7 N FAMILY MANIPULAT CHIROPRAC ROSS TX T SPINAL 3-4 REGIONS CHIROPRAC 96347 LEODANSARAI VILLEGAS TIC 7 N FAMILY MANIPULAT CHIROPRAC ROSS TX T SPINAL 3-4 REGIONS CHIROPRAC 32659 JAQUELIN VILLEGAS TIC 7 N FAMILY MANIPULAT CHIROPRAC ROSS TX T SPINAL 3-4 REGIONS HEMOGLOBI 77759 MATEO AMJAD N 7 DIABETIC GLYCOSYLA [place], ASUNCION A1C P CHIROPRAC 23333 LEODANSARAI VILLEGAS TIC 7 N FAMILY MANIPULAT CHIROPRAC ROSS TX T SPINAL 3-4 REGIONS CHIROPRAC 47466 JAQUELIN LONG TIC 7 N FAMILY MANIPULAT CHIROPRAC ROSS TX T SPINAL 3-4 REGIONS CHIROPRAC 59182 LEODANSARAI VILLEGAS TIC 7 N FAMILY MANIPULAT CHIROPRAC ROSS TX T SPINAL 3-4 REGIONS CHIROPRAC 37768 LEODANSARAI VILLEGAS TIC 7 N FAMILY MANIPULAT CHIROPRAC ROSS TX T SPINAL 3-4 REGIONS CHIROPRAC 21367 LEODANSARAI VILLEGAS TIC 7 N FAMILY MANIPULAT CHIROPRAC ROSS TX T SPINAL 3-4 REGIONS CHIROPRAC 41867 LEODANSARAI VILLEGAS TIC 7 N FAMILY MANIPULAT CHIROPRAC ROSS TX T SPINAL 3-4 REGIONS HEMOGLOBI 85143 MATEO AMJAD N 6 DIABETIC GLYCOSYLA [place], ASUNCION A1C P BLOOD 24434 [facility] COUNT 6 [facility] COMPLETE INC INC AUTO&AUTO DIFRNTL WBC COMPREHEN 11986 [facility] SIVE 6 [facility] METABOLIC INC INC PANEL COLLECTIO 22694 [facility] N VENOUS 6 [facility] BLOOD INC INC VENIPUNCT URE LIPID 49067 [facility] PANEL 6 [facility] INC INC CHIROPRAC 01755 JAQUELIN VILLEGAS TIC 6 N FAMILY RANDY MANIPULAT CHIROPRAC ROSS TX T SPINAL 3-4 REGIONS CHIROPRAC 75699 JAQUELIN VILLEGAS TIC 6 N FAMILY RANDY MANIPULAT CHIROPRAC ROSS TX T SPINAL 3-4 REGIONS HEMOGLOBI 90186 MATEO AMJAD N 6 DIABETIC GLYCOSYLA REDDING, ASUNCION A1C P CHIROPRAC 97691 JAQUELIN VILLEGAS TIC 6 N FAMILY RANDY MANIPULAT CHIROPRAC ROSS TX T SPINAL 3-4 REGIONS CHIROPRAC 25343 JAQUELIN VILLEGAS TIC 6 N FAMILY RANDY MANIPULAT CHIROPRAC ROSS TX T SPINAL 3-4 REGIONS CHIROPRAC 60172 JAQUELIN LONG TIC 6 N FAMILY DARRON MANIPULAT CHIROPRAC ROSS TX T SPINAL 3-4 REGIONS CHIROPRAC 84433 JAQUELIN VILLEGAS TIC 6 N FAMILY RANDY MANIPULAT CHIROPRAC ROSS TX T SPINAL 3-4 REGIONS CHIROPRAC 60870 JAQUELIN LONG TIC 6 N FAMILY DARRON MANIPULAT CHIROPRAC ROSS TX T SPINAL 3-4 REGIONS CHIROPRAC 57846 JAQUELIN LONG TIC 6 N FAMILY DARRON MANIPULAT CHIROPRAC ROSS TX T SPINAL 3-[address] [place] [address] [facility] THYROID 6 [facility] STIMULATI INC INC NG HORMONE TSH LIPID 86003 [facility] PANEL 6 [facility] INC INC COLLECTIO 46143 [facility] N VENOUS 6 [facility] BLOOD INC INC VENIPUNCT URE COMPREHEN 10198 [facility] SIVE 6 [facility] METABOLIC INC INC PANEL CHIROPRAC 09638 JAQUELIN VILLEGAS TIC 6 N FAMILY RANDY MANIPULAT CHIROPRAC ROSS TX T SPINAL 3-4 REGIONS CHIROPRAC 86554 JAQUELIN VILLEGAS TIC 6 N FAMILY RANDY MANIPULAT CHIROPRAC ROSS TX T SPINAL 3-4 REGIONS HEMOGLOBI 23673 [place] AMJAD SOB N 6 DIABETIC GLYCOSYLA CENTER, ASUNCION A1C P CHIROPRAC 96561 JAQUELIN VILLEGAS TIC 6 N FAMILY RANDY MANIPULAT CHIROPRAC ROSS TX T SPINAL 3-4 REGIONS CHIROPRAC 03487 JAQUELIN VILLEGAS TIC 6 N FAMILY RANDY MANIPULAT CHIROPRAC ROSS TX T SPINAL 3-4 REGIONS CHIROPRAC 31670 LEODANSARAI BAKARI TIC 6 N FAMILY RANDY MANIPULAT CHIROPRAC ROSS TX T SPINAL 3-4 REGIONS CHIROPRAC 95403 LEODANSARAI ETHAN TIC 6 N FAMILY DARRON MANIPULAT CHIROPRAC ROSS TX T SPINAL 3-4 REGIONS HEMOGLOBI 31318 MATEO AMJAD SOB N 6 DIABETIC GLYCOSYLA CENTER, ASUNCION A1C P CHIROPRAC 90617 LEODANSARAI BAKARI TIC 6 N FAMILY RANDY MANIPULAT CHIROPRAC ROSS TX T SPINAL 3-4 REGIONS CHIROPRAC 23559 LEODANSARAI BAKARI TIC 6 N FAMILY RANDY MANIPULAT CHIROPRAC ROSS TX T SPINAL 3-4 REGIONS CHIROPRAC 53703 LEODANSARAI BAKARI TIC 6 N FAMILY RANDY MANIPULAT CHIROPRAC ROSS TX T SPINAL 3-4 REGIONS CHIROPRAC 22853 JAQUELIN VILLEGAS TIC 6 N FAMILY RANDY MANIPULAT CHIROPRAC ROSS TX T SPINAL 3-[address] [place] [address] [facility] LARA TRANSVAGI 6 PHYSICIAN DANIKA NAL S GROUP CHIROPRAC 94066 JAQUELIN ETHAN TIC 6 N FAMILY DARRON MANIPULAT CHIROPRAC ROSS TX T SPINAL 3-4 REGIONS CHIROPRAC 89549 LEODANSARAI BAKARI TIC 6 N FAMILY RANDY MANIPULAT CHIROPRAC ROSS TX T SPINAL 3-4 REGIONS CHIROPRAC 80759 JAQUELIN LONG TIC 6 N FAMILY DARRON MANIPULAT CHIROPRAC ROSS TX T SPINAL 3-4 REGIONS CHIROPRAC 14090 JAQUELIN VILLEGAS TIC 6 N FAMILY RANDY MANIPULAT CHIROPRAC ROSS TX T SPINAL 3-4 REGIONS CHIROPRAC 64509 JAQUELIN VILLEGAS TIC 6 N FAMILY RANDY MANIPULAT CHIROPRAC ROSS TX T SPINAL 3-4 [place] [address] [facility] LARA TRANSVAGI 6 PHYSICIAN DANIKA NAL S GROUP RADIOLOGI 33825 [place] GINGER C EXAM 6 MEDICAL EDIS CHEST 2 IMAGING VIEWS ASS FRONTAL&L ATERAL ECG 37177 HYACINTH MARTINEZ ROUTINE 6 [facility] W/LEAST P 12 LDS I&R ONLY URNLS DIP 91495 [facility] LARA 6 PHYSICIAN DANIKA STICK/TAB S GROUP LET RGNT NON-AUTO W/O MICRSCP HEMOGLOBI 45314 [place] AMJAD SOB N 6 DIABETIC GLYCOSYLA RED[place]ING, ASUNCION A1C P RADEX 58807 [place] BEINEKE FOOT 5 MEDICAL ROCIO COMPLETE IMAGING MINIMUM 3 ASS VIEWS SURGICAL L3260 ADVANCED ADVANCED BOOT/SHOE 5 TECHNOLOG TECHNOLOG EACH IES INC IES INC CHIROPRAC 53379 JAQUELIN VILLEGAS TIC 5 N FAMILY RANDY MANIPULAT CHIROPRAC ROSS TX T SPINAL 1-2 REGIONS HEMOGLOBI 01703 [place] AMJAD SOB N 5 DIABETIC GLYCOSYLA CENTER, ASUNCION A1C P GLUC BLD 13732 HYACINTH CLAROS GLUC MNTR 5 [facility] DEV INC INC [place] [address] [facility], [place] SURG 5 [facility] PATHOLOGY GROSS&ANNA ROSCOPIC EXAM ANESTHESI 88305 [facility] A 5 ANESTH INCOMPLET OF THE E/MISSED BLUE INJECTION J2405 [facility] CLAROS 5 [facility] ONDANSETR INC INC ON HCL PER 1 [place] [address] [facility] INFUSION 5 [facility] THERAPY INC INC PROPHYLAX IS/[place] [address] [facility]ACIN[facility] CLAR[facility] INFUSION 5 [facility] THERAPY/P INC INC ROPHYLAXI S /DX 1ST TO 1 HR THERAPEUT 68378 HY[facility]IN[facility] CLAROS IC 5 [facility] INJECTION INC INC IV PUSH EACH NEW DRUG ECG 21172 HYACINTH JAVIER JR ROUTINE 5 [facility] W/LEAST P 12 LDS I&R ONLY TX MISSED 15788 [facility] MARCO 5 PHYSICIAN DANIKA FIRST S GROUP TRIMESTER SURGICAL ECG 15711 HYACINTH CLAROS ROUTINE 5 [facility] ECG INC INC W/LEAST 12 LDS TRCG ONLY W/O I&R US PREG 66067 HYAC[facility] CLAROS UTERUS 5 [facility] REAL TIME INC INC W/IMAGE DCMTN TRANSVAG DETERMINA 82485 SHAUN DUNN SEFERINO 5 GRE GRE REFRACTIV E STATE OPHTH 80794 SHAUN DUNN [facility] 5 GRE GRE XM&EVAL COMPRHNSV ESTAB PT 1/> COMPREHEN 72714 HYACIN[facility] CLAROS SIVE 5 [facility] METABOLIC INC INC PANEL URNLS DIP 78007 [facility]OS 5 [facility] STICK/TAB INC INC LET REAGENT AUTO MICROSCOP Y BLOOD 23628 HYACIN[facility] CLAROS COUNT 5 [facility] COMPLETE INC INC AUTO&AUTO DIFRNTL WBC OBSTETRIC 11703 HYACIN[facility] CLAROS PANEL 5 [facility] INC INC COLLECTIO 99752 HYACINTH CLAR[facility] N VENOUS 5 [facility] BLOOD INC INC VENIPUNCT URE INF AGT G0432 [facility]AR[facility] AB DETECT 5 [facility] EIA TECH INC INC HIV-1&/HI V-2 SCR US PREG 01457 [facility] LARA UTERUS 5 PHYSICIAN DANIKA REAL TIME S GROUP W/IMAGE DCMTN TRANSVAG IADNA 11654 [facility] NEISSERIA 5 [facility] INC INC GONORRHOE AE AMPLIFIED PROBE TQ IADNA 63451 [facility] CHLAMYDIA 5 [facility] INC INC TRACHOMAT IS AMPLIFIED PROBE TQ RADEX 43789 [place] RICHARDSO FOOT 5 FOOT & N SHABNAM COMPLETE ANKLE CE MINIMUM 3 VIEWS HEMOGLOBI 66918 [place] ANTHONYTSINGE N 5 DIABETIC R TAR GLYCOSYLA CENTER ASUNCION A1C RADEX 35049 [place] [facility] FOOT 5 MEDICAL ROCIO COMPLETE IMAGING MINIMUM 3 [place] [address] [facility], PICKLESIM SURG 5 LLC ER [facility] PATHOLOGY GROSS&ANNA ROSCOPIC EXAM COLSC FLX 63447 [facility] JDSTAD 5 PHYSICIAN CAM W/REMOVAL S GROUP LESION BY HOT BX FORCEPS CHIROPRAC 38335 JAQUELIN VILLEGAS TIC 5 N FAMILY RANDY MANIPULAT CHIROPRAC ROSS TX T SPINAL 1-[address] [place] [address] [facility] ABDOMEN & 5 MEDICAL ROCIO PELVIS IMAGING W/O ASS CONTRAST MATERIAL CYTP C/V 53525 [facility], [facility] AUTO THIN 5 [facility] ER JR SUMIT LYR PREPJ SCR MNL RESCR PHYS URNLS DIP 77781 [facility] OJEDA 5 PHYSICIAN MARGOTH STICK/TAB S GROUP LET RGNT NON-AUTO W/O MICRSCP IADNA 17053 [facility], [facility] NEISSERIA 5 [facility] ER JR SUMIT GONORRHOE AE AMPLIFIED PROBE TQ IADNA 84936 [facility], [facility] CHLAMYDIA 5 LLC ER JR SUMIT TRACHOMAT IS AMPLIFIED PROBE TQ COLLECTIO 69962 [facility] N VENOUS 5 [facility] BLOOD INC INC VENIPUNCT URE GONADOTRO 76026 [facility] PIN 5 [facility] [place] [address] [facility] ABDOMEN & 5 MEDICAL ROCIO PELVIS IMAGING W/O ASS CONTRAST MATERIAL CHIROPRA 68736 JAQUELIN VILLEGAS TIC 5 N FAMILY RANDY MANIPULAT CHIROPRAC ROSS TX T SPINAL 1-2 REGIONS COLLECTIO 60571 [facility] N VENOUS 5 [facility] BLOOD INC INC VENIPUNCT URE LIPID 24880 [facility] PANEL 5 [facility] INC INC HEMOGLOBI 96084 [facility] COBIAN SOB N 5 DIABETIC GLYCOSYLA CENTER, ASUNCION A1C P DIAB ONLY A5500 [facility] AMJAD SOB FIT CSTM 5 DIABETIC PREP&SPL CENTER, SHOE MX P DNSITY INSRT FOR DIAB A5512 [facility] MUHAMMADD SOB ONLY MX 5 DIABETIC DNSITY CENTER, INSRT DIR P FORMD PRFAB EA THERAPEUT 29120 [facility] JEANINE IC 5 PHYSICIAN ANNA PROPHYLAC S GROUP TIC/DX INJECTION SUBQ/IM INJECTION J1040 [facility] JEANINE 5 PHYSICIAN ANNA METHYLPRE S GROUP DNISOLONE ACETATE 80 MG COLLECTIO 82180 [facility] CO[facility] SOB N VENOUS 5 DIABETIC BLOOD CENTER VENIPUNCT URE CHIROPRAC 94377 JAQUELIN VILLEGAS TIC 5 N FAMILY RANDY MANIPULAT CHIROPRAC ROSS TX T SPINAL 1-2 REG[place] THERAPEUT 34073 JAQUELIN VILLEGAS IC PX 1/> 5 N FAMILY RANDY AREAS CHIROPRAC EACH 15 T MIN EXERCISES CHIROPRAC 49249 JAQU[facility]IN V[facility]LEGAS TIC 5 N FAMILY RANDY MANIPULAT CHIROPRAC ROSS TX T SPINAL 1-2 REGIONS APPL 87479 JAQU[facility] V[facility]GAS MODALITY 5 N FAMILY RANDY 1/> AREAS CHIROPRAC TRACTION T MECHANICA L CHIROPRAC 59637 JAQUELIN VILLEGAS TIC 5 N FAMILY RANDY MANIPULAT CHIROPRAC ROSS TX T SPINAL 1-2 REGIONS THERAPEUT 39462 JAQUELIN VILLEGAS IC PX 1/> 5 N FAMILY RANDY AREAS CHIROPRAC EACH 15 T MIN EXERCISES [facility]- 31748 HYACINTH ROTH 5 [facility] DETECTION INC INC SCREENING MAMMOGRAP HY SCREENING G0202 [facility] 5 [facility] MAMMOGRAP INC INC HY CHIRAG INCL CAD WHEN PERFORMD CHIROPRAC 23742 JAQUELIN VILLEGAS TIC 5 N FAMILY RANDY MANIPULAT CHIROPRAC ROSS TX T SPINAL 1-2 REGIONS THERAPEUT 44744 JAQUELIN VILLEGAS IC PX 1/> 5 N FAMILY RANDY AREAS CHIROPRAC EACH 15 T MIN EXERCISES APPL 99166 JAQUELIN VILLEGAS MODALITY 5 N FAMILY RANDY 1/> AREAS CHIROPRAC ELEC T STIMJ EA 15 MIN HEMOGLOBI 67586 [facility] N [facility] ASUNCION A1C COMPREHEN 76131 [facility] SIVE 5 [facility] PANEL THERAPEUT 98685 JAQUELIN VILLEGAS IC PX 1/> 5 N FAMILY RANDY AREAS CHIROPRAC EACH 15 T MIN EXERCISES CHIROPRAC 12692 JAQUELIN VILLEGAS TIC 5 N FAMILY RANDY MANIPULAT CHIROPRAC ROSS TX T SPINAL 1-2 REGIONS 38191 [facility] LARA TRANSVAGI 4 PHYSICIAN DANIKA [facility] S GROUP NERVE 87721 [facility] CONDUCTIO 4 NEUROLOGY AYAD N STUDIES 11-12 CONSULTAN STUDIES T NEEDLE 06472 [facility] EMG EA 4 NEUROLOGY AYDA EXTREMTY W/PARASPI CONSULTAN NL AREA T COMPLETE SMR PRIM 85340 [facility] MARCO SRC WET 4 PHYSICIAN DANIKA [facility] S GROUP NFCT AGT MRI 10285 CENTRAL JONES TRA SPINAL 4 [place] CANAL ORTHOPAED LUMBAR ICS PLC W/O CONTRAST MATERIAL RADIOLOGI 58452 [facility] C EXAM 4 MEDICAL ROCIO CHEST 2 IMAGING VIEWS ASS FRONTAL&L ATERAL RADEX 30215 JONES TRA JONES TRA SPINE 4 LUMBOSACR AL 2/3 VIEWS CHIROPRAC 79365 BAKARI BAKARI TIC 4 RANDY RANDY MANIPULAT ROSS TX SPINAL 3-4 REGIONS THERAPEUT 02358 BAKARI BAKARI IC PX 1/> 4 RANDY RANDY AREAS EACH 15 MIN EXERCISES THERAPEUT 88219 BAKARI BAKARI IC PX 1/> 4 RANDY RANDY AREAS EACH 15 MIN EXERCISES APPL 84523 BAKARI BAKARI MODALITY 4 RANDY RANDY 1/> AREAS TRACTION MECHANICA L CHIROPRAC 62814 BAKARI BAKARI TIC 4 RANDY RANDY MANIPULAT ROSS [place] SPINAL 3-4 REGIONS CHIROPRAC 16731 BAKARI BAKARI TIC 4 RANDY RANDY MANIPULAT ROSS [place] SPINAL 3-4 REGIONS THERAPEUT 87774 BAKARI BAKARI IC PX 1/> 4 RANDY RANDY AREAS EACH 15 MIN EXERCISES THERAPEUT 09650 BAKARI BAKARI IC PX 1/> 4 RANDY RANDY AREAS EACH 15 MIN EXERCISES CHIROPRAC 20480 BAKARI BAKARI TIC 4 RANDY RANDY MANIPULAT ROSS [place] SPINAL 3-4 REGIONS RADEX 54950 [place] [facility] FOOT 4 FOOT & N SHABNAM COMPLETE ANKLE CE MINIMUM 3 VIEWS THERAPEUT 34671 BAKARI BAKARI IC PX 1/> 4 RANDY RANDY AREAS EACH 15 MIN EXERCISES CHIROPRAC 87077 BAKARI BAKARI TIC 4 RANDY RANDY MANIPULAT ROSS TX SPINAL 3-4 REGIONS CHIROPRAC 44293 BAKARI BAKARI TIC 4 RANDY RANDY MANIPULAT ROSS TX SPINAL 3-4 REGIONS THERAPEUT 55413 BAKARI BAKARI IC PX 1/> 4 RANDY RANDY AREAS EACH 15 MIN EXERCISES THERAPEUT 71550 BAKARI BAKARI IC PX 1/> 4 RANDY RANDY AREAS EACH 15 MIN EXERCISES CHIROPRAC 66991 BAKARI BAKARI TIC 4 RANDY RANDY MANIPULAT ROS[place] SPINAL 3-[address] [place] [address] [facility] ABDOMEN & 4 MEDICAL EDIS PELVIS IMAGING W/O ASS CONTRAST MATERIAL CHIROPRAC 16799 BAKARI BAKARI TIC 4 RANDY RANDY MANIPULAT ROSS TX SPINAL 3-4 REGIONS THERAPEUT 91508 BAKARI BAKARI IC PX 1/> 4 RANDY RANDY AREAS EACH 15 MIN EXERCISES THERAPEUT 93907 BAKARI BAKARI IC PX 1/> 4 RANDY RANDY AREAS EACH 15 MIN EXERCISES CHIROPRAC 79736 BAKARI BAKARI TIC 4 RANDY RANDY MANIPULAT ROSS TX SPINAL 3-4 REGIONS THERAPEUT 90641 BAKARI BAKARI IC PX 1/> 4 RANDY RANDY AREAS EACH 15 MIN EXERCISES CHIROPRAC 84497 BAKARI BAKARI TIC 4 RANDY RANDY MANIPULAT ROSS TX SPINAL 3-4 REGIONS THERAPEUT 22676 BAKARI BAKARI IC PX 1/> 4 RANDY RANDY AREAS EACH 15 MIN EXERCISES CHIROPRAC 35880 BAKARI BAKARI TIC 4 RANDY RANDY MANIPULAT ROSS TX SPINAL 3-4 REGIONS THERAPEUT 25320 BAKARI BAKARI IC PX 1/> 4 RANDY RANDY AREAS EACH 15 MIN EXERCISES CHIROPRAC 10225 BAKARI BAKARI TIC 4 RANDY RANDY MANIPULAT ROSS TX SPINAL 3-4 REGIONS CHIROPRAC 99971 BAKARI BAKARI TIC 4 RANDY RANDY MANIPULAT ROSS TX SPINAL 3-4 REGIONS THERAPEUT 81857 BAKARI BAKARI IC PX 1/> 4 RANDY RANDY AREAS EACH 15 MIN EXERCISES THERAPEUT 89820 BAKARI BAKARI IC PX 1/> 4 RANDY RANDY AREAS EACH 15 MIN EXERCISES CHIROPRAC 26998 BAKARI BAKARI TIC 4 RANDY RANDY MANIPULAT ROSS TX SPINAL 3-4 REGIONS CHIROPRAC 27851 BAKARI BAKARI TIC 4 RANDY RANDY MANIPULAT ROSS TX SPINAL 3-4 REGIONS THERAPEUT 69511 BAKARI VILLEGAS IC PX 1/> 4 RANDY RANDY AREAS EACH 15 MIN EXERCISES 69824 [facility] TRANSVAGI 4 DANIKA DANIKA NAL THERAPEUT 18306 BAKARI BAKARI IC PX 1/> 4 RANDY RANDY AREAS EACH 15 MIN EXERCISES CHIROPRAC 51827 BAKARI BAKARI TIC 4 RANDY RANDY MANIPULAT ROSS TX SPINAL 3-4 REGIONS CHIROPRAC 17070 BAKARI BAKARI TIC 4 RANDY RANDY MANIPULAT ROSS TX SPINAL 3-4 REGIONS THERAPEUT 25586 BAKARI VILLEGAS IC PX 1/> 4 RANDY RANDY AREAS EACH 15 MIN EXERCISES THERAPEUT 72617 BAKARI BAKARI IC PX 1/> 4 RANDY RANDY AREAS EACH 15 MIN EXERCISES APPL 62952 BAKARI BAKARI MODALITY 4 RANDY RANDY 1/> AREAS TRACTION MECHANICA L CHIROPRAC 93487 BAKARI VILLEGAS TIC 4 RANDY RANDY MANIPULAT ROSS TX SPINAL 3-4 REGIONS CHIROPRAC 40375 BAKARI BAKARI TIC 4 RANDY RANDY MANIPULAT ROSS TX SPINAL 3-4 REGIONS GONADOTRO 20145 [facility] PIN 4 [facility] CHORIONIC INC INC QUALITATI VE URINE 80184 [facility] 4 DANIKA DANIKA TEST VISUAL COLOR CMPRSN METHS APPL 99960 BAKARI BAKARI MODALITY 4 RANDY RANDY 1/> AREAS TRACTION MECHANICA L THERAPEUT 38331 BAKARI VILLEGAS IC PX 1/> 4 RANDY RANDY AREAS EACH 15 MIN EXERCISES THERAPEUT 80878 BAKARI VILLEGAS IC PX 1/> 4 RANDY RANDY AREAS EACH 15 MIN EXERCISES APPL 13156 BAKARI BAKARI MODALITY 4 RANDY RANDY 1/> AREAS TRACTION MECHANICA L CHIROPRAC 20559 BAKARI BAKARI TIC 4 RANDY RANDY MANIPULAT ROSS TX SPINAL 3-4 REGIONS CHIROPRAC 39793 BAKARI BAKARI TIC 4 RANDY RANDY MANIPULAT ROSS TX SPINAL 3-4 REGIONS APPL 87947 BAKARI BAKARI MODALITY 4 RANDY RANDY 1/> AREAS TRACTION MECHANICA L THERAPEUT 60644 BAKARI BAKARI IC PX 1/> 4 RANDY RANDY AREAS EACH 15 MIN EXERCISES APPL 34115 BAKARI VILLEGAS MODALITY 4 RANDY RANDY 1/> AREAS TRACTION MECHANICA L CHIROPRAC 01997 BAKARI VILLEGAS TIC 4 RANDY RANDY MANIPULAT RSOS [place] SPINAL 3-4 REGIONS IRON 59052 COMBINED COMBINED BINDING 4 PHYSICIAN [place] [address] COMBINED COMBINED FREE 4 PHYSICIAN PHYSICIAN THYROXINE S LA S LA LIPID 80631 COMBINED COMBINED PANEL 4 PHYSICIAN PHYSICIAN S LA S LA BLOOD 81165 COMBINED COMBINED COUNT 4 PHYSICIAN PHYSICIAN RETICULOC S LA S LA YTE AUTOMATED GENERAL 28382 COMBINED COMBINED HEALTH 4 PHYSICIAN PHYSICIAN PANEL S LA S LA SEDIMENTA 18485 COMBINED COMBINED TION RATE 4 PHYSICIAN PHYSICIAN RBC S LA S LA NON-AUTOM ATED 25 60490 COMBINED COMBINED HYDROXY 4 PHYSICIAN PHYSICIAN INCLUDES S LA S LA FRACTIONS IF PERFORMED CYANOCOBA 97998 COMBINED COMBINED SCOOTER 4 PHYSICIAN PHYSICIAN VITAMIN S LA S LA B-12 OPHTH 99906 [facility] MEDICAL 4 GRE GRE XM&EVAL COMPRHNSV ESTAB PT 1/> DETERMINA 24529 [facility] TION 4 GRE GRE REFRACTIV E STATE IADNA 51248 PICKLESIM PICKLESIM CHLAMYDIA 4 ER JR SUMIT ER JR SUMIT TRACHOMAT IS AMPLIFIED PROBE TQ IADNA 88615 PICKLESIM PICKLESIM NEISSERIA 4 ER JR SUMIT ER JR SUMIT GONORRHOE AE AMPLIFIED PROBE TQ CYTP C/V 69132 PICKLESIM PICKLESIM AUTO THIN 4 ER JR SUMIT ER JR SUMIT LYR PREPJ SCR MNL RESCR PHYS ADMINISTR G0008 [facility] DOBSON ATION OF 4 [facility] INFLUENZA VIRUS VACCINE INFLUENZA Q2038 [facility] VACC 4 [facility] SPLIT VIRUS 3 YRS & > IM FLUZONE RADEX 55135 [facility] HAND 3 EDIS EDIS MINIMUM 3 VIEWS WRIST L3908 [facility] HAND 3 ORTH[place] [address] [facility]ER ABDOMEN & 3 EDIS [place] [address] [facility] ABDOMINAL 3 [facility] REAL [place] TIME W/[place] [address] [facility] [facility] TRANSVAGI 3 DANIKA DANIKA NAL URINE 56172 [facility] 3 DANIKA DANIKA TEST VISUAL COLOR CMPRSN [place]HS [place] PREG 13416 [facility] UTERUS 3 DANIKA DANIKA REAL TIME W/IMAGE DCMTN TRANSVAG GONADOTRO 39190 [facility] PIN 3 [facility] CHORIONIC INC INC QUANTITAT ROSS GONADOTRO 55117 [facility] PIN 3 [facility] CHORIONIC INC [place] 01121 [facility] UTERUS 3 [facility] REAL TIME INC INC W/IMAGE DCMTN TRANSVAG URNLS DIP 38725 [facility] 3 [facility] STICK/TAB INC INC LET REAGENT AUTO MICROSCOP Y BLOOD 16513 [facility] COUNT 3 [facility] COMPLETE INC INC AUTO&AUTO DIFRNTL WBC URINE 57241 [facility] 3 [facility] TEST INC INC VISUAL COLOR CMPRSN METHS CULTURE 56661 [facility] RAM BACTERIAL 3 [facility] LIS INC QUANTTATI VE COLONY COUNT URINE COMPREHEN 88807 [facility] SIVE 3 [facility] METABOLIC INC INC PANEL COMPREHEN 02936 [facility] SIVE 3 [facility] METABOLIC INC INC PANEL HEMOGLOBI 41443 [facility] N 3 [facility] GLYCOSYLA INC INC ASUNCION A1C OPHTH 56550 [facility] 3 GRE GRE XM&EVAL COMPRHNSV ESTAB PT 1/> DETERMINA 23505 [facility] 3 GRE GRE REFRACTIV E STATE URINE 04721 [facility] 3 [facility] TEST INC INC VISUAL COLOR CMPRSN METHS URNLS DIP 95911 [facility] 3 [facility] STICK/TAB INC INC LET REAGENT AUTO MICROSCOP Y URNLS DIP 10-29-201 74102 [facility] 2 DANIKA DANIKA STICK/TAB LET RGNT NON-AUTO W/O MICRSCP CYTP C/V 10612 PICKLESIM PICKLESIM AUTO THIN 2 ER JR SUMIT ER JR SUMIT LYR PREPJ SCR MNL RESCR PHYS APPL 37793 [facility] MODALITY 2 [facility] 1/> AREAS INC INC ELEC STIMJ UNATTENDE D THERAPEUT 24899 [facility] IC PX 1/> 2 [facility] AREAS INC INC EACH 15 MIN EXERCISES APPLICATI 43932 [facility] ON 2 [facility] MODALITY INC INC 1/> AREAS HOT/COLD PACKS APPLICATI 43907 [facility] ON 2 [facility] MODALITY INC INC 1/> AREAS HOT/COLD PACKS THERAPEUT 44885 [facility] IC PX 1/> 2 [facility] AREAS INC INC EACH 15 MIN EXERCISES APPL 25236 [facility] MODALITY 2 [facility] 1/> AREAS INC INC ELEC STIMJ UNATTENDE D APPL 14585 [facility] MODALITY 2 [facility] 1/> AREAS INC INC ELEC STIMJ EA 15 MIN APPLICATI 68176 [facility] ON 2 [facility] MODALITY INC INC 1/> AREAS HOT/COLD PACKS APPL 76842 [facility] MODALITY 2 [facility] 1/> AREAS INC INC ELEC STIMJ UNATTENDE D THERAPEUT 28658 [facility] IC PX 1/> 2 [facility] AREAS INC INC EACH 15 MIN EXERCISES SEDIMENTA 63557 COMBINED COMBINED TION RATE 2 PHYSICIAN PHYSICIAN [place] [address] COMBINED COMBINED THYROXINE 2 PHYSICIAN PHYSICIAN TOTAL S LA S LA LIPID 68754 COMBINED COMBINED PANEL 2 PHYSICIAN PHYSICIAN S LA S LA GENERAL 69382 COMBINED COMBINED HEALTH 2 PHYSICIAN PHYSICIAN PANEL S LA S LA THYROID 57474 COMBINED COMBINED HORM 2 PHYSICIAN PHYSICIAN UPTK/THYR S LA S LA OID HORMONE BINDING RATIO PHYSICAL 60638 [facility] THERAPY 2 [facility] [place]UATIO [place] INC N 38246 [place] L[place] TRANSVAGI 2 DANIKA DANIKA NAL CYANOCOBA 31276 [facility] SCOOTER 2 [facility] B-12 ORGANIC 22763 [facility] ACID 1 2 [facility] ROSS HEMOGLOBI 39020 [facility] N 2 [facility] ASUNCION A1C GENERAL [address] NRV CNDJ 81568 GUILLEN ANTONINO GUILLEN ANTONINO AMPLITUDE 2 & LATENCY EACH NERVE SENSORY NRV CND 88143 GUILLEN ANTONINO GUILLEN ANTONINO AMPLT&LAT 2 ENCY EA NRV MOTOR W/F-WAVE STD COLLECTIO 83502 [facility] VENOUS 2 [facility] [place] [address] [facility] HOMOCYSTE 2 [facility] REMOVAL 79786 [facility] NON-BIODE 2 DANIKA DANIKA GRADABLE DRUG DELIVERY IMPLANT NEEDLE 02031 JONES TRA JONES TRA EMG EA 2 EXTREMTY W/PARASPI NL AREA COMPLETE NRV CNDJ 40840 JONES TRA JONES TRA AMPLT&LAT 2 ENCY EA NRV MOTOR W/F-WAVE STD NRV CNDJ 10398 JONES TRA JONES TRA AMPLITUDE 2 & LATENCY EACH NERVE SENSORY MRI 25669 JONES TRA JONES TRA SPINAL 2 CANAL CERVICAL W/O CONTRAST MATRL RADEX 60813 JONES TRA JONES TRA SPINE 2 CERVICAL 2 OR 3 VIEWS RADEX 23759 JONES TRA JONES TRA SPINE 2 THORACIC 2 VIEWS CUL BACT 39699 [facility] STOOL 2 [facility] AEROBIC INC INC ISOL SALMONELL A&[place] [address] HYACINTHSEFERINO GARCIAON CLOSTRIDI 2 [facility] [place] [address] [facility] GIARDIA 2 [facility] INC INC OVA&THUAN 06514 HY[facility] HYACINTH ITES 2 [facility] DIRECT INC INC SMEARS CONCENTRA TION & ID DRUG SCR G0434 [facility] NOT 2 CHROMATOG RAPHIC; ANY NUMBER PT ENC COMPREHEN 17870 [facility] SIVE 2 [facility] [address] [facility]ACINTHSEFERINO [facility] INFUSION 2 [facility] THERAPY INC INC PROPHYLAX IS/DX EA HOUR ANES 03409 [facility] LOWER 2 ANESTH INTESTINE OF [place] [address] HYACINTH HYACINTH INFUSION 2 [facility] THERAPY/P INC INC ROPHYLAXI S /DX 1ST TO 1 HR URINE 77553 [facility] 2 [facility] TEST INC INC VISUAL [place] CMPR[place]HS EGD 38066 [facility] TRANSORAL 2 [facility] BIOPSY INC INC [place]ING[place] [address] PATHOLOGY [facility] PAT SURG 2 & PATHOLOGY CYTOLOGY LAB GROSS&[place] [address] [facility] AMYLASE 2 [facility] INC INC URNLS DIP 22645 [facility] GARCIAON 2 [facility] STICK/TAB INC INC LET REAGENT AUTO MICROSCOP Y BLOOD 88448 [facility] COUNT 2 [facility] COMPLETE INC INC AUTO&AUTO DIFRNTL WBC CUL 57046 [facility] PRSMPTV 2 [facility] PTHGNC [place] [address] [facility] ABDOMEN & 2 [facility] PELVIS INC INC W/[place] [address] [facility] LIPASE 2 [facility] INC INC SPECIAL 49230 PATHOLOGY WILFRID PAT STAIN 2 & GROUP 1 CYTOLOGY MICROORGA LAB NISMS I&R SPCL STN 75833 PATHOLOGY WILFRID PAT 2 I&R 2 & EXCPT CYTOLOGY MICROORG/ LAB ENZYME/IM CYT COLONOSCO 48889 ADE[facility]A ANT ADEOLA ANT PY 2 W/BIOPSY SINGLE/MU [place]IP[place] COLSC FLX 30493 ADEOLA ANT ADEOLA ANT W/RMVL 2 [place] [address] [facility] ABDOMEN & 2 [facility] PELVIS INC INC W/O CONTRAST MATERIAL URNLS DIP 75329 OAKES OAKES 2 LC LC STICK/TAB LET RGNT NON-AUTO W/O MICRSCP DRUG SCR G0434 [facility] ABDI NOT 1 CHROMATOG RAPHIC; ANY NUMBER PT ENC PRESSURIZ 98882 [facility] ED/NONPRE 1 [facility] SSURIZED INC INC INHALATIO N TREATMENT RADIOLOGI 59748 [facility] EXAM 1 MEDICAL EDIS CHEST 2 IMAGING VIEWS ASS FRONTAL&L ATERAL INJECTION 37106 [facility] BRAVO HAM 1 SINGLE/ML T TRIGGER POINT 3/> MUSCLES NJX 13403 [facility] DX/THER 1 SBST EPIDURAL/ SUBARACH LUMBAR/SA CRAL FLUOR 09554 [facility] NEEDLE/CA 1 TH SPINE/PAR ASPINAL DX/THER ADDON OPHTH 21572 [facility] MEDICAL 1 VISION ANG XM&EVAL COMPRE NEW PT 1/> VST MRI 62442 NEURODIAG [place]OW SPINAL 1 NOSTICPSC ROL CANAL LUMBAR W/O CONTRAST MATERIAL RADEX 06804 [facility] J[facility]VIS SPINE 1 [place] LC LUMBOSACR ORTHOPAED AL 2/3 [facility] VIEWS PRESSURIZ 58951 [facility] ED/NONPRE 1 [facility] SSURIZED INC INC INHALATIO N TREATMENT US BREAST 27968 [facility] REAL 1 [facility] TIME [place] INC [place] [address] [facility] INFUSION 1 [facility] THERAPY INC INC PROPHYLAX IS/DX EA HOUR HYSTEROSC 52295 [facility] OPY BX 1 [facility] ENDOMETRI CLINIC OF UM&/POLYP [place] C W/[place] D&[place] [address] CHIPPS KIRK ANNA SURG 1 KIAH & PATHOLOGY DUBILIER GROSS&ANNA ROSCOPIC EXAM ANES 79756 [facility] HYSTEROSC 1 ANESTH ADRIANA OPY&/HYST OF THE EROSALPIN BLUE GOGRAPHY W/BX HYSTEROSC 6812 [facility] OPY 1 [facility] INC INC OTHER 6909 [facility] DILATION 1 [facility] AND INC INC CURETTAGE OF UTERUS GONADOTRO 61004 [facility] PIN 1 [facility] CHORIONIC INC INC QUALITATI VE BLOOD 94156 [facility] COUNT 1 [facility] COMPLETE INC INC AUTO&[place] [address] [facility] TRANSVAGI 1 [facility] NAL CLINIC OF [place] CYTP C/V 15713 PATHOLOGY PATHOLOGY AUTO THIN 0 & & LYR CYTOLOGY CYTOLOGY PREPJ SCR LAB LAB MNL RESCR PHYS IADNA 23420 PATHOLOGY PATHOLOGY NEISSERIA 0 & & CYTOLOGY CYTOLOGY GONORRHOE LAB LAB AE AMPLIFIED PROBE TQ IADNA 83925 PATHOLOGY PATHOLOGY CHLAMYDIA 0 & & CYTOLOGY CYTOLOGY TRACHOMAT LAB LAB IS AMPLIFIED PROBE TQ URINE 83236 [facility] 0 [facility] TEST CLINIC OF VISUAL [place] COLOR CMPRSN METHS ETONOGEST J7307 [facility] REL 0 [facility] CNTRACPT CLINIC OF IMPL SYS [place] INCL IMPL & SPL INSERTION 61552 [facility] 0 [facility] IMPLANTAB CLINIC OF LE [place] CONTRACEP TIVE CAPSULES URINE 01213 [facility] 0 [facility] TEST INC INC VISUAL COLOR CMPRSN METHS RADIOLOGI 61860 [facility] C EXAM 0 [facility] CHEST 2 INC INC VIEWS FRONTAL&L ATERAL URINE 36386 [facility], 9 [facility] J TEST CLINIC OF VISUAL COLOR [place] CMPRSN PLLC METHS LEVONORGE J7302 [facility], STREL-RLS 9 [facility] J E CLINIC OF INTRAUTER N [place] CNTRACPT PLLC 52 MG INSERTION 43479 [facility], 9 [facility] INTRAUTER CLINIC OF INE DEVICE [place] IUD PLLC COMPREHEN 23683 [facility] SIVE 9 [facility] METABOLIC INC INC PANEL BLOOD 07054 [facility] COUNT 9 [facility] COMPLETE INC INC AUTO&AUTO DIFRNTL WBC CYTP C/V 78459 PATHOLOGY PATHOLOGY AUTO THIN 9 & & LYR CYTOLOGY CYTOLOGY PREPJ SCR LAB LAB MNL RESCR [facility] 95062 [facility] 9 [facility] MIN/< SUBQ [address] PER [facility] DAY E/M S NORMAL CIRCUMCIS 50384 [facility] 9 [facility] W/CLAMP/O [facility] DEV S W/BLOCK SUBQ [address] PER [facility] DAY E/M S NORMAL LOW 741 [facility] CERVICAL 9 [facility] INC INC SECTION 1ST 26896 [facility]JIMBO 9 [facility] [place] [address] [facility], DELIVERY 9 [facility] CLINIC OF W/POSTPAR IVAN CARE [place] [facility] 17736 KING CARIAS, DELIVERY 9 ARETHA Andrade ONLY ANESTHESI 21792 [facility], A 9 ANESTH ABELINO F OF THE DELIVERY [place] ONLY 08598 [facility], BIOPHYSIC 9 [facility] AL CLINIC OF PROFILE W/O [place] NON-STRES [facility] [place] [address] [facility], [facility] LIMITED 1/> [place] FETUSES [facility] DOPPLER 61681 [facility], VELOCIMET 9 [facility] R[facility] UMBILICAL ARTERY [place] [facility] DOPPLER 23324 [facility], VELOCIMET 9 [facility] J R[facility] 44262 W[facility] BIOPHYSIC 9 [facility] J AL CLINIC OF PROFILE W/O [place] NON-STRES [place] P[place] 76649 [facility], UTERUS 9 [facility] J REAL TIME CLINIC OF F/U TRNSABDL [place] PER FETUS PLLC 21367 [facility], BIOPHYSIC 9 [facility] J AL CLINIC OF PROFILE W/[place] [address] [facility], 9 [facility] J UTERUS CLINIC OF LIMITED 1/> [place] FETUSES [facility] DOPPLER 62925 [facility], VELOCIMET 9 [facility] J RY CLINIC OF UMBILICAL ARTERY [place] [facility] DOPPLER 87431 [facility], VELOCIMET 9 [facility] J RY CLINIC OF UMBILICAL ARTERY [place] [facility] TRANSFERA 66264 [facility] SE 9 [facility] ASPARTATE INC INC AMINO AST SGOT BLOOD 13036 [facility] COUNT 9 [facility] COMPLETE INC INC AUTO&AUTO DIFRNTL WBC BASIC 30713 [facility] METABOLIC 9 [facility] PANEL INC INC CALCIUM TOTAL 48615 [facility] BIOPHYSIC 9 [facility] J AL CLINIC OF PROFILE W/O [place] NON-STRES [place] 67781 [facility], UTERUS 9 [facility] J REAL TIME CLINIC OF F/U TRNSABDL [place] PER FETUS [facility] THROMBOPL 82625 [facility] ASTIN 9 [facility] TIME INC INC PARTIAL PLASMA[place] [address] [facility] BLOOD/URI 9 [facility] C ACID INC INC FIBRINOGE 28196 [facility] N 9 [facility] ACTIVITY INC INC PROTHROMB 07258 [facility] IN TIME 9 [facility] INC INC TRANSFERA 04125 [facility] SE 9 [facility] ALANINE INC INC AMINO ALT SGPT FIBRIN 54003 [facility] DGRADJ 9 [facility] PRODUCTS INC INC D-DIMER QUAL/SEMI LACI OBSERVATI 02327 K[facility] CARI[facility], ON/INPATI 9 ARETHA Andrade [facility] CARE 55 MINUTES 99055 [facility] NONSTRESS 9 [facility] TEST INC INC URNLS DIP 56155 [facility] 9 [facility] STICK/TAB INC INC LET REAGENT AUTO MICROSCOP Y DOPPLER 76942 [facility], VELOCIMET 9 [facility] J RY CLINIC OF UMBILICAL ARTERY [place] [facility] US PREG 03494 [facility], UTERUS 9 [facility] J REAL TIME CLINIC OF F/U TRNSABDL [place] PER FETUS [facility] 22501 [facility], BIOPHYSIC 9 [facility] J AL CLINIC OF PROFILE W/O [place] NON-STRES [facility] S TESTING BLD GLU A4253 [facility] TEST/REAG 9 PHARMACY PHARMACY T STRIPS #591 #591 HOME BLD GLU MON-50 11094 WOMEN'S [place], BIOPHYSIC 9 HEALTH TASHA J AL CLINIC OF PROFILE W/O [place] NON-STRES [facility] [place] [address]1908 WOMEN'S LARA, UTERUS 9 HEALTH TASHA J REAL TIME CLINIC OF F/U TRNSABDL [place] PER [facility] CUL BACT 63385 COMBINED COMBINED XCPT 9 PHYSICIAN PHYSICIAN URINE S LAB S LAB BLOOD/STO OL AEROBIC ISOL DOPPLER 13828 WOMEN'S LARA, VELOCIMET 9 HEALTH TASHA J RY CLINIC OF UMBILICAL ARTERY [place] [facility] DOPPLER 93982 WOMEN'S MARCO, VELOCIMET 9 HEALTH TASHA J RY [facility] OF UMBILICAL ARTERY [place] [facility] US PREG 31849 WOMEN'S MARCO, UTERUS 9 HEALTH TASHA J REAL TIME CLINIC OF F/U TRNSABDL [place] PER [facility] 13862 WOMEN'S LARA, BIOPHYSIC 9 HEALTH TASHA J AL CLINIC OF PROFILE W/O [place] NON-STRES [facility] [place] 92869 KRAFT, UTERUS 9 FADI R REAL TIME DIAGNOSTI F/U CCENTER TRNSABDL PER FETUS CUL BACT 61006 COMBINED COMBINED XCPT 9 PHYSICIAN PHYSICIAN URINE S LAB S LAB BLOOD/STO OL AEROBIC ISOL ANTIBODY 38100 COMBINED COMBINED CHLAMYDIA 9 PHYSICIAN PHYSIC[place] 40670 MEET, UTERUS 9 SHANELLE REAL TIME DIAGNOSTI A F/U CCENTER TRNSABDL PER FETUS RADIOLOGI 06725 Imer GARNER 9 NATIONAL DANIEL S EXAMINATI CORPORATI ON CHEST ON SINGLE VIEW FRONTAL 13721 WOMEN'S LARA, NONSTRESS 9 Budding BiologistK J TEST CLINIC OF [place] [facility] 09785 WOMEN'S LARA, NONSTRESS 9 HEALTH TASHA J TEST CLINIC OF [place] [facility] URNLS DIP 12434 [facility]ACINTH CL[facility] 9 [facility] STICK/TAB INC INC [place] REAGENT [place] 00139 KRAFT, UTERUS 9 FADI R REAL TIME DIAGNOSTI F/U CCENTER TRNSABDL PER FETUS BLD GLU A4253 [facility] TEST/REAG 8 PHARMACY PHARMACY T STRIPS #591 #591 HOME BLD GLU MON-50 [place] P[place] 64338 [facility] UTERUS 8 [facility]ATH[facility] W/DETAIL HOSP HOSP ANISH 1ST GESTATION DIAB G0109 [facility] SELF-MGMT 8 [facility] TRN [facility] HOSP GROUP SESSION PER 30 MIN ALPHA-FET 31244 [facility] OPROTEIN 8 [employer] SERUM URNLS DIP 92159 DHS/CO HYACINTH 8 HEALTH CO HEALTH STICK/TAB [facility] LET RGNT BANK ACCT NON-AUTO W/O MICRSCP ASSAY OF 11-26-200 25493 [facility] ESTRIOL 8 [facility] GONADOTRO 87008 [facility] PIN 8 [facility] CHORIONIC QUANTITAT ROSS GLUC BLD 71839 [facility] GLUC MNTR [address] [place] [address] CLEARED BANK ACCT FDA SPEC HOME USE URNLS DIP 23053 [facility]/CO HYACINTH [address] [place] [address] HEALTH STICK/TAB [facility] LET RGNT BANK ACCT NON-AUTO W/O MICRSCP CYTP 00561 [facility] SSD/OK HYACINTH CERV/VAG [address] [place] [address] AUTO THIN [facility] LAYER BANK ACCT PREP MNL SCREEN BLOOD 66435 [facility] TYPING 8 [facility] SEROLOGIC RH (D) ANTIBODY 94983 [facility] SCREEN [address] [place] [address] RBC EACH SERUM TECHNIQUE BLOOD 33445 [facility] TYPING [address] [place] [address] SEROLOGIC ABO IADNA 66096 [facility] [address] [place] [address] GONORRHOE BANK ACCT AE AMPLIFIED PROBE TQ SYPHILIS 52976 [facility] TEST [address] [place] [address] NON-TREPO [facility] NEMAL BANK ACCT ANTIBODY QUAL COLLECTIO 75727 [facility] N VENOUS [address] [place] [address] VENIPUNCT BANK ACCT URE IADNA 00603 [facility] CHLAMYDIA [address] [place] [address] TRACHOMAT BANK ACCT IS AMPLIFIED PROBE TQ ANTIBODY 49180 [facility] RUBELLA [address] [place] [address] [place] [address] [facility] HEPATITIS [address] [place] [address] SURFACE BANK ACCT ANTIGEN GONADOTRO 23330 HYACINTH CLAROS PIN 8 [facility] CHORIONIC INC [place] [address] [place] UZIEL, UTERUS 8 MEDICAL RANI P REAL TIME IMAGING W/IMAGE ASSOCIATE DCMTN S TRANSVAG URNLS DIP 19378 HYACINTH CLAROS 8 [facility] STICK/TAB INC INC LET REAGENT AUTO MICROSCOP Y BLOOD 34876 HYACINTH CL[facility] COUNT 8 [facility] COMPLETE INC INC AUTO&AUTO DIFRNTL WBC CULTURE 24254 HYACINTH CLAROS [facility] QUANTTATI VE COLONY COUNT URINE CULTURE 90894 HYACINTH [facility] BACTERIAL [facility] QUANTTATI VE COLONY COUNT URINE URINE 75582 [facility]ACIN[facility]OS [facility] TEST INC INC VISUAL COLOR CMPRSN METHS COMPREHEN 01097 HYACIN[facility] SIVE 8 [facility] METABOLIC INC INC PANEL BLOOD 14283 HYACINTH [facility] COUNT 8 [facility] COMPLETE INC INC AUTO&AUTO DIFRNTL WBC URNLS DIP 43406 [facility] STICK/TAB INC INC [place] [address] HYACINTH CL[facility] AMYLASE 8 [facility] US PREG 86883 [facility] GINGER, UTERUS 8 MEDICAL SHANELLE REAL TIME IMAGING W/IMAGE [place] [address] HYACINTH CL[facility] LIPASE 8 [facility] APPLICATI 93.54 Camilla ON OF Parish ENG SPLINT Encounters Encounter Start End Date Code Location Performer Type Date OFFICE 81048 [facility] COBIAN OUTPATIEN 7 7 [facility], 25 P MINUTES OFFICE 70120 TRESA GARAY OUTPATIEN 7 7 Viviane CALLE MD,PSC MINUTES OFFICE 60900 [facility] OUTPATIEN 7 7 PHYSICIAN T VISIT GROUP 15 MINUTES OFFICE 11096 [facility] OUTPATIEN 7 7 PHYSICIAN T VISIT GROUP 15 MINUTES OFFICE 73187 M[facility]O COBIAN OUTPATIEN 7 7 [facility]ENTER, 25 P MINUTES OFFICE 46354 JAQUELIN VILLEGAS OUTPATIEN 7 7 N FAMILY T VISIT CHIROPRAC 10 T MINUTES OFFICE 81163 [place] AMJAD OUTPATIEN 6 6 DIABETIC T VISIT CENTER, 15 P MINUTES HOSPITAL HYACINTH - 6 6 [facility]IEN INC T OFFICE 16769 [facility] JEANINE OUTPATIEN 6 6 PHYSICIAN T VISIT S GROUP 25 MINUTES OFFICE 56151 MATEO AMJAD OUTPATIEN 6 6 DIABETIC T VISIT CENTER, 25 P MINUTES OFFICE 16886 OLYA DOBSON OUTPATIEN 6 6 [facility] HYACINTH - 6 6 [facility] OUTPATIEN INC T OFFICE 56935 [place] [facility] SOB OUTPATIEN 6 6 DIABETIC T VISIT CENTER, 25 P MINUTES OFFICE 18737 [place] [facility] SOB OUTPATIEN 6 6 DIABETIC T VISIT 5 CENTER, MINUTES P OFFICE 98805 JAQUELIN VILLEGAS OUTPATIEN 6 6 N FAMILY RANDY T VISIT CHIROPRAC 10 T MINUTES OFFICE 08265 OLYA DOBSON OUTPATIEN 6 6 [facility] T VISIT 15 MINUTES OFFICE 13968 [facility] LARA OUTPATIEN 6 6 PHYSICIAN DANIKA T VISIT S GROUP 15 MINUTES OFFICE 63109 OLYA DOBSON OUTPATIEN 6 6 [facility] T VISIT 15 MINUTES OFFICE 81204 MATEO FRANCOJAD SOB OUTPATIEN 6 6 DIABETIC T VISIT CENTER, 15 P MINUTES EMERGENCY 73877 JUSTINA SANCHEZ 5 5 PHYSICIAN DEPARTMEN S, PLLC T VISIT HIGH/URGE NT SEVERITY OFFICE 56436 OLYA REIDEN 5 5 [facility] T VISIT 15 MINUTES OFFICE 01115 JAQUELIN VILLEGAS OUTPATIEN 5 5 N FAMILY RANDY T VISIT CHIROPRAC 10 T MINUTES OFFICE 06655 [place] AMJAD SOB OUTPATIEN 5 5 DIABETIC T VISIT CENTER, 25 P MINUTES OFFICE 09641 [facility] MARCO OUTPATIEN 5 5 PHYSICIAN DANIKA T VISIT S GROUP 15 MINUTES EMERGENCY 26789 JUSTINA TELLEZ 5 5 PHYSICIAN DEPARTMEN S, PLLC T VISIT MODERATE SEVERITY HOSPITAL HYACINTH - 5 5 [facility] OUTPATIEN INC T EMERGENCY 71743 HYACINTH 5 5 [facility] DEPARTMEN INC T VISIT LIMITED/M [facility] HYACINTH - 5 5 [facility] OUTPATIEN INC T HOSPITAL HYACINTH - 5 5 [facility] OUTPATIEN INC T EMERGENCY 01521 HYACINTH 5 5 [facility] DEPARTMEN INC T VISIT MODERATE SEVERITY HOSPITAL HYACINTH - 5 5 [facility] OUTPATIEN [facility] T EMERGENCY 19338 JUSTINA BOWMAN 5 5 PHYSICIAN ANNA DEPARTMEN S, PLLC T VISIT HIGH/URGE NT SEVERITY HOSPITAL HYACINTH - 5 5 [facility] OUTPATI[facility] HYACINTH - 5 5 [facility] OUTPATIEN INC T OFFICE 76085 MATEO HAZELSWEETIE OUTPATIEN 5 5 FOOT & N SHABNAM T VISIT ANKLE CE 15 MINUTES OFFICE 32705 OLYA DOBSON OUTPATIEN 5 5 [facility] T VISIT 15 MINUTES OFFICE 18826 MATEO REESEMARJORIE OUTPATIEN 5 5 DIABETIC R TAR T VISIT CENTER 25 MINUTES EMERGENCY 64435 JUSTINA BOWMAN 5 5 PHYSICIAN ANNA DEPARTMEN S, PLLC T VISIT MODERATE SEVERITY OFFICE 73330 [facility] MIKAYLA OUTPATIEN 5 5 PHYSICIAN CAM T VISIT S GROUP 10 MINUTES HOSPITAL HYACINTH - 5 5 [facility] OUTPATIEN INC T OFFICE 96936 [facility] OJEDA OUTPATIEN 5 5 PHYSICIAN MARGOTH T VISIT S GROUP 15 MINUTES OFFICE 03104 [facility] SCHULSTAD OUTPATIEN 5 5 PHYSICIAN CAM T VISIT S GROUP 15 MINUTES EMERGENCY 55204 JUSTINA BOWMAN 5 5 PHYSICIAN ANNA DEPARTMEN S, PLLC T VISIT HIGH/URGE NT SEVERITY OFFICE 07497 [facility] OJEDA OUTPATIEN 5 5 PHYSICIAN MARGOTH T VISIT S GROUP 15 MINUTES OFFICE 18173 [facility] OJEDA OUTPATIEN 5 5 PHYSICIAN MARGOTH T NEW 20 S GROUP MINUTES HOSPITAL HYACINTH - 5 5 [facility] OUTPATIEN INC T EMERGENCY 99810 JUSTINA ULLOA 5 5 PHYSICIAN LINARES DEPARTMEN S, PLLC T VISIT HIGH/URGE NT SEVERITY HOSPITAL HYACINTH - 5 5 [facility] OUTPATIEN INC T OFFICE 60089 OLYA DOBSON OUTPATIEN 5 5 [facility] T VISIT 15 MINUTES OFFICE 06333 MATEO WOLF OUTPATIEN 5 5 DIABETIC T VISIT CENTER, 25 P MINUTES OFFICE 98901 [facility] YMAN OUTPATIEN 5 5 PHYSICIAN EUG T VISIT S GROUP 10 MINUTES OFFICE 64768 [facility] JEANINE OUTPATIEN 5 5 PHYSICIAN ANNA T VISIT S GROUP 15 MINUTES OFFICE 52131 HYACINTH PAIZ OUTPATIEN 5 5 [facility] ANNA T VISIT HOSPITAL 15 MINUTES OFFICE 75950 MATEO WOLF OUTPATIEN 5 5 DIABETIC T VISIT CENTER [address]ES [address] PEDROZA OUTPATIEN 5 5 DANIEL Leon SHABNAM T VISIT MIRTA 15 DPM PSC MINUTES OFFICE 84261 OLYA DOBSON OUTPATIEN 5 5 [facility] T VISIT 15 MINUTES HOSPITAL HYACINTH - 5 5 [facility]PATIEN [facility] T [facility]PITAL [facility] - 5 5 [facility] T OFF[facility] 22665 [facility] OUT[facility] 5 5 HEALTH AYAD T VISIT MEDICAL 40 GROUP MINUTES OFFICE 01553 JAQUELIN VILLEGAS OUTPATIEN 5 5 N FAMILY RANDY T VISIT CHIROPRAC 10 T MINUTES OFFICE 62437 [facility] LARA OUTPATIEN 4 4 PHYSICIAN DANIKA T VISIT S GROUP 15 MINUTES OFFICE 21101 OLYA DOBSON OUTPATIEN 4 4 [facility] T VISIT 15 MINUTES OFFICE 84068 [facility] JONES TRA OUTPATIEN 4 4 [place] T VISIT ORTHOPAED 15 [facility] MINUTES OFFICE 01512 [facility] CONSULTAT 4 4 NEUROLOGY AYAD ION NEW/ESTAB CONSULTAN PATIENT T 60 MIN OFFICE 49173 [facility] OUTPATIEN 4 4 PHYSICIAN T VISIT S GROUP 25 MINUTES OFFICE 37930 OLYA DOBSON OUTPATIEN 4 4 [facility] T VISIT 15 MINUTES OFFICE 83767 [facility] JONES TRA OUTPATIEN 4 4 [place] T VISIT ORTHOPAED 15 [facility] MINUTES OFFICE 36073 OLYA DOBSON OUTPATIEN 4 4 [facility] T VISIT 15 MINUTES EMERGENCY 82368 [facility] 4 4 TRUDI [facility] EMERGENCY T VISIT PHYS HIGH/URGE NT SEVERITY OFFICE 10688 MATE[facility] HAZELSO OUTPATIEN 4 4 FOOT & N SHABNAM T VISIT ANKLE CE 15 MINUTES OFFICE 70053 JONES TRA JONES TRA OUTPATIEN 4 4 T VISIT 15 MINUTES OFFICE 41070 [place] RICHARDSO OUTPATIEN 4 4 FOOT & N SHABNAM T NEW 30 ANKLE CE MINUTES OFFICE 07450 OLYA DOBSON OUTPATIEN 4 4 [facility] T VISIT 15 MINUTES OFFICE 54650 BAKARI VILLEGAS OUTPATIEN 4 4 RANDY RANDY T VISIT 10 MINUTES EMERGENCY 59813 JEANINE BOWMAN 4 4 ANNA ANNA DEPARTMEN T VISIT HIGH/URGE NT SEVERITY OFFICE 56644 OLYA DOBSON OUTNATALIE 4 4 [facility] T VISIT 15 MINUTES OFFICE 87468 BAKARI VILLEGAS OUTPATIEN 4 4 RANDY RANDY T VISIT 10 MINUTES OFFICE 49078 BAKARI VILLEGAS OUTPATIEN 4 4 RANDY RANDY T VISIT 10 MINUTES [facility] HYACINTH - 4 4 [facility] OUTPATIEN INC T OFFICE 15163 [place] OUTPATIEN 4 4 DANIKA DANIKA T VISIT 15 MINUTES OFFICE 10938 BAKARI LYNNPATINICHOLAS 4 4 RANDY RANDY T NEW 30 MINUTES OFFICE 83547 OLYA PAL 4 4 [facility] T VISIT 15 MINUTES OFFICE 61520 OLYA PAL 4 4 [facility] T VISIT 15 MINUTES OFFICE 94691 OLYA PAL 4 4 [facility] T VISIT 15 MINUTES PERIODIC 74279 [place] PREVENTIV 4 4 DANIKA DANIKA E MED EST PATIENT 18-39 YRS OFFICE 44470 OLYA PAL 3 3 [facility] T VISIT 15 MINUTES Emergency LILY Brooks MD (ER) 3 19:56 3 21:05 [facility] EMERGENCY 44307 PARISH NESBITT 3 3 DEPARTMEN T VISIT MODERATE SEVERITY OFFICE 94577 ADEOLA ANT ADEOLA ANT SHANEPATINICHOLAS 3 3 T VISIT 15 MINUTES OFFICE 29453 OLYA PAL 3 3 [facility] T VISIT 15 MINUTES Emergency LILY Bowman MD (ER) 3 21:55 3 23:44 [facility] EMERGENCY 63844 JEANINE BOWMAN 3 3 [facility] DEPARTMEN T VISIT HIGH/URGE NT SEVERITY HOSPITAL HYACINTH - 3 3 [facility] OUTPATIEN INC T OFFICE 86746 ADEOLA ANT ADEOLA ANT OUTPATIEN 3 3 T VISIT 25 MINUTES OFFICE 91991 WIL[facility] MUÑIZ OUTPATIEN 3 3 T VISIT 25 MINUTES HOSPITAL HYACINTH - 3 3 [facility] OUTPATIEN INC T Emergency LILY Escobar (ER) 3 11:33 3 15:32 [facility] HYACINTH - 3 3 [facility] OUTPATIEN INC T EMERGENCY 44666 HYACINTH 3 3 [facility] DEPARTMEN INC T VISIT MODERATE SEVERITY EMERGENCY 33741 LUZ ESCOBAR DEPT 3 3 III FIDE III FIDE VISIT HIGH SEVERITY& THREAT FUNCJ OFFICE 25497 OLYA LYNNPATIEN 3 3 [facility] T VISIT 15 MINUTES OFFICE 68935 OLYA REIDEN 3 3 [facility] T VISIT 15 MINUTES OFFICE 94246 WILMER MUÑIZ OUTPATIEN 3 3 T VISIT 15 MINUTES HOSPITAL HYACINTH - 3 3 [facility] OUTPATIEN INC T OFFICE 89642 ADEOLA ANT ADEOLA ANT OUTPATIEN 3 3 T VISIT 25 MINUTES EMERGENCY 00885 SHAUN RASHID DEPT 3 3 EMERGENCY FIDE VISIT SERVICES HIGH SEVERITY& THREAT FUNCJ EMERGENCY 64869 HYACINTH 3 3 [facility] DEPARTMEN INC T VISIT LOW/MODER SEVERITY HOSPITAL HYACINTH - 3 3 [facility] OUTPATIEN INC T OFFICE 03129 WILMER GUILLEN ANTONINO OUTPATIEN 2 2 T VISIT 15 MINUTES OFFICE 58187 OLYA DOBSON OUTPATIEN 2 2 [facility] T VISIT 15 MINUTES OFFICE 49579 OLYA DOBSON OUTPATIEN 2 2 [facility] T VISIT 15 MINUTES OFFICE 78373 ADEOLA ANT ADEOLA ANT OUTPATIEN 2 2 T VISIT 15 MINUTES PERIODIC 13072 [place] PREVENTIV 2 2 DANIKA DANIKA E MED EST PATIENT 18-39 YRS OFFICE 04603 [facility] OUTPATIEN 2 2 [facility] SLEEP T VISIT AND REHA 10 MINUTES HOSPITAL HYACINTH - 2 2 [facility] OUTPATIEN [facility] T OFFICE 22303 WILMER MUÑIZ GUILLNE ANTONINO OUTPATIEN 2 2 T VISIT 25 MINUTES OFFICE 79798 OLYA DOBSON OUTPATIEN 2 2 [facility] T VISIT 15 MINUTES HOSPITAL HYACINTH - 2 2 [facility] OUTPATIEN [facility] T OFFICE 22638 [facility] OUTPATIEN 2 2 DANIKA DANIKA T VISIT 15 MINUTES OFFICE 83653 OLYA NITESHVICKEY OUTPATIEN 2 2 [facility] T VISIT 15 MINUTES OFFICE 49449 [facility] HILARIO II OUTPATIEN 2 2 [facility] SLEEP VINCENT T NEW 30 AND REHA MINUTES OFFICE 91827 OLYA DOBSON OUTPATIEN 2 2 [facility] T VISIT 15 MINUTES OFFICE 63268 [facility] OUTPATIEN 2 2 DANIKA DANIKA T VISIT 25 MINUTES OFFICE 40703 WILMER MUÑIZ WILMER MUÑIZ OUTPATIEN 2 2 T NEW 45 MINUTES HOSPITAL ANTHONYON - 2 2 [facility] T OFFICE 25430 ADEOLA ANT ADEOLA ANT OUTPATIEN 2 2 T VISIT 25 MINUTES OFFICE 94185 SAMARIA GARIBAY CONSULTAT 2 2 ION NEW/ESTAB PATIENT 40 MIN OFFICE 65276 SAMARIA MERA LANI OUTPATIEN 2 2 T NEW 30 MINUTES OFFICE 65928 JONES TRA JONES TRA OUTPATIEN 2 2 T VISIT 15 MINUTES OFFICE 05301 JONES TRA JONES TRA OUTPATIEN 2 2 T VISIT 10 MINUTES OFFICE 87223 JONES TRA JONES TRA OUTPATIEN 2 2 T VISIT 15 MINUTES OFFICE 90260 OLYA DOBSON OUTPATIEN 2 2 [facility] T VISIT 15 MINUTES HOSPITAL HYACINTH - 2 2 [facility] OUTPATIEN INC T OFFICE 43442 ADEOLA ANT ADEOLA ANT OUTPATIEN 2 2 T VISIT 25 MINUTES OFFICE 08550 [facility] OUTPATIEN 2 2 T VISIT 15 MINUTES OFFICE 97197 [facility] OUTPATIEN 2 2 T VISIT 15 MINUTES HOSPITAL HYACINTH - 2 2 [facility] OUTPATIEN INC T EMERGENCY 56470 SHAUN HOLLAND DEPT 2 2 EMERGENCY VISIT SERVICES HIGH SEVERITY& THREAT FUN EMERGENCY 57664 HYACINTH 2 2 [facility] DEPARTMEN INC T VISIT MODERATE SEVERITY OFFICE 89118 ADEOLA ANT ADEOLA ANT OUTPATIEN 2 2 T NEW 45 MINUTES OFFICE 24096 JEANINE BOWMAN OUTPATIEN 2 2 ANNA ANNA T NEW 20 MINUTES OFFICE 71666 [facility] OUT[facility] 2 2 T VISIT 15 MINUTES HOSPITAL HYACINTH - 2 2 [facility] OUTPATIEN INC T OFFICE 77917 HYACINTH OUTPATIEN 2 2 [facility] 10 HOSPITAL MINUTES P OFFICE 27954 OLYA DOBSON OUTPATIEN 1 1 [facility] T VISIT 15 MINUTES OFFICE 71797 LAWRENCEKURT ABDI [facility] OUT[facility] 1 1 T VISIT 15 MINUTES OFFICE 90169 [facility]WR[facility] JIN [facility] OUTPATI[facility] 1 1 T VISIT 15 MINUTES EMERGENCY 44414 HYACINTH 1 1 [facility] DEPARTMEN INC T VISIT MODERATE SEVERITY EMERGENCY 11490 LIANG MARGOTH LIANG MARGOTH 1 1 DEPARTMEN T VISIT HIGH/URGE NT SEVERITY HOSPITAL HYACINTH - 1 1 [facility] OUTPATIEN INC T OFFICE 63391 [facility] OUTPAT[facility] 1 1 T VISIT 15 MINUTES OFFICE 16967 [facility] OUTPATIEN 1 1 T VISIT 15 MINUTES OFFICE 89683 [facility] OUTPATIEN 1 1 T VISIT 15 MINUTES OFFICE 69732 [facility] OUTPATIEN 1 1 T VISIT 15 MINUTES OFFICE 60793 OLYA DOBSON OUTPATIEN 1 1 [facility] T VISIT 15 MINUTES OFFICE 56502 [facility] OUTPATIEN 1 1 [place] T VISIT ORTHOPAED 15 [facility] MINUTES OFFICE 81979 [facility] J[facility]VIS CONSULTAT 1 1 [place] ION ORTHOPAED NEW/ESTAB [facility]CS PLC PATIENT 40 MIN EMERGENCY 64754 HYACINTH 1 1 [facility] DEPARTMEN INC T VISIT MODERATE SEVERITY HOSPITAL HYACINTH - 1 1 [facility] OUTPATIEN INC T EMERGENCY 73962 SHAUN PEREYRA 1 1 EMERGENCY ANNA DEPARTMEN SERVICES T VISIT HIGH/URGE NT SEVERITY HOSPITAL HYACINTH - 1 1 [facility] OUTPATIEN [facility] OFFICE 32141 [facility] 1 1 HEALTH DANIKA T VISIT CLINIC OF 15 [place]OLAND MINUTES HOSPITAL HYACINTH [facility] 1 1 [facility] 04285 HYACINTH [address] [facility] T VISIT LOW/MODER SEVERITY EMERGENCY 75712 SHAUN ESCOBAR 1 1 EMERGENCY III [facility] T VISIT HIGH/URGE NT SEVERITY OFFICE 22058 [facility] OUT[facility] 1 1 HEALTH DANIKA T VISIT CLINIC OF 15 [place]OLAND MINUTES HOSPITAL HYACINTH [facility] 1 1 [facility] HYACIN[facility] - 1 1 [facility] OFF[facility] 62193 OLYA DOBSON OUTPATIEN 1 1 [facility] T NEW 30 MINUTES OFFICE 29037 [facility] OUTPATIEN 1 1 HEALTH DANIKA T VISIT CLINIC OF 15 [place] MINUTES [facility] 18331 [facility] L[facility] PREVENTIV 0 0 HEALTH DANIKA E MED EST CLINIC OF PATIENT ROLAND 18-39 YRS EMERGENCY 05723 HYACINTH [address] [facility] T VISIT LOW/MODER SEVERITY EMERGENCY 46042 SHAUN ESCOBAR 0 0 EMERGENCY III, [facility] SERVICES ABELINO T VISIT HIGH/URGE ASSOCIATE NT S SEVERITY HOSPITAL HYACINTH - 0 0 [facility] OFFICE 89921 [facility], OUTPATIEN 9 9 HEALTH TASHA J T VISIT CLINIC OF 15 MINUTES [facility] EMERGENCY 39059 HYACINTH [address] [facility] T VISIT LIMITED/M [facility] HYACINTH [facility] 9 9 [facility] T EMERGENCY 38679 SHAUN HERNANDEZ, 9 9 EMERGENCY GOSIA Andrade [facility] T VISIT HIGH/URGE ASSOCIATE NT S SEVERITY OFFICE 15673 [facility], OUTPATIEN 9 9 HEALTH T[facility]HA J T VISIT CLINIC OF [address] [facility] HYACINTH - 9 9 [facility] OUTPATIEN [facility] OFFICE 84472 [facility], OUTPATIEN 9 9 HEALTH TASHA J T VISIT CLINIC OF [address] [facility] HYACINTH [facility] 9 9 [facility] - 9 9 [facility] HYACINTH - 9 9 [facility] OUTPATIEN [facility]TRAL - 9 9 [facility] T OFFICE 51729 [facility], OUT[facility] 9 9 [facility]ALTH [facility]HA J T VISIT CLINIC OF 15 MIN[facility]ES [facility] 24360 [facility] OUTPATIEN 9 9 [facility]ALTH T[facility]HA J T VISIT CLINIC OF [address] [facility] CENTRAL - 9 9 [facility] T OFFICE 36552 JORDON DSOUZA 9 9 SHANELLE ION DIAGNOSTI A NEW/ESTAB CCENTER PATIENT 15 MIN OFFICE 43627 [facility] ROSENTHAL OUTPATIEN 9 9 Kaylie DOMINGUEZ JR, Kaylie V T VISIT 15 MINUTES HOSPITAL HYACINTH - 9 9 [facility] OUTPATIEN [facility] EMERGENCY 91705 ANGELA BOWMAN, 9 9 [facility] T VISIT ON MODERATE SEVERITY OFFICE 36491 [facility] OUTPATIEN 9 9 HEALTH TASHA J T VISIT CLINIC OF [address] [facility] HYACINTH - 9 9 [facility] OUTPATIEN INC T OFFICE 68961 [facility] OUT[facility] 9 9 [facility]ALTH T[facility]HA Lott T VISIT CLINIC OF 15 [facility]ES [facility] - 9 9 [facility] OUTPATIEN INC T OFFICE 56628 [facility] 9 9 [facility]ALTH [facility] Lott T VISIT CLINIC OF 15 MIN[facility]ES [facility] 00201 ANGELA MAL, 9 [address] [facility] T VISIT ON HIGH/URGE NT SEVERITY HOSPITAL HYACINTH - 9 9 [facility] OUTPATIEN INC T EMERGENCY 13886 HYACINTH 9 9 [facility] DEPARTMEN INC T VISIT LIMITED/M [facility] HOSPITAL CENTRAL - 9 9 [facility] T OFFICE 63795 [facility] 8 8 JR, J V JR, J V T VISIT 15 MINUTES EMERGENCY 67872 [facility]ACINTH 8 8 [facility] DEPARTMEN INC T VISIT LIMITED/M [facility] HOSPITAL HYACINTH - 8 8 [facility] OUTPATIEN [facility] T HOSPITAL CENTRAL - 8 8 [facility] T OFFICE 78035 [facility] OUTPAT[facility]EN 8 8 [facility] T VISIT [facility] 10 [facility] ACCT MINUTES OFFICE 59161 [facility] OUTPATIEN 8 8 [facility] T NEW 30 [facility] MINUTES [facility] ACCT EMERGENCY 85164 HYACINTH 8 8 [facility] DEPARTMEN INC T VISIT MODERATE SEVERITY HOSPITAL HYACINTH - 8 8 [facility] OUTPATIEN INC T HOSPITAL HYACINTH - 8 8 [facility] OUTPATIEN INC T EMERGENCY 18290 HYACINTH 8 8 [facility] INC T VISIT HIGH/URGE NT SEVERITY
--- OUTSIDE RECORDS SUMMARY | 2016-12-07 18:45 | External Medical Summary Rpt | CCD ---
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 ROSS TX T SPINAL 3-4 REGIONS CHIROPRAC 37222 JAQUELIN LONG TIC 7 N FAMILY MANIPULAT CHIROPRAC ROSS TX T SPINAL 3-4 REGIONS CHIROPRAC 26151 JAQUELIN VILLEGAS TIC 7 N FAMILY MANIPULAT CHIROPRAC ROSS TX T SPINAL 3-4 REGIONS CHIROPRAC 68913 JAQUELIN VILLEGAS TIC 7 N FAMILY MANIPULAT CHIROPRAC ROSS TX T SPINAL 3-4 REGIONS CHIROPRAC 22143 JAQUELIN VILLEGAS TIC 7 N FAMILY MANIPULAT CHIROPRAC ROSS TX T SPINAL 3-4 REGIONS CHIROPRAC 37441 JAQUELIN VILLEGAS TIC 7 N FAMILY MANIPULAT CHIROPRAC ROSS TX T SPINAL 3-4 REGIONS CHIROPRAC 25532 JAQUELIN VILLEGAS TIC 7 N FAMILY MANIPULAT CHIROPRAC ROSS TX T SPINAL 3-4 REGIONS CHIROPRAC 59753 JAQUELIN VILLEGAS TIC 7 N FAMILY MANIPULAT CHIROPRAC ROSS TX T SPINAL 3-4 REGIONS CHIROPRAC 65979 JAQUELIN VILLEGAS TIC 7 N FAMILY MANIPULAT CHIROPRAC ROSS TX T SPINAL 3-4 REGIONS CHIROPRAC 56970 LEODANSARAI VILLEGAS TIC 7 N FAMILY MANIPULAT CHIROPRAC ROSS TX T SPINAL 3-4 REGIONS CHIROPRAC 61615 JAQUELIN VILLEGAS TIC 7 N FAMILY MANIPULAT CHIROPRAC ROSS TX T SPINAL 3-4 REGIONS HEMOGLOBI 08802 MATEO AMJAD N 7 DIABETIC GLYCOSYLA [place], ASUNCION A1C P CHIROPRAC 57408 LEODANSARAI VILLEGAS TIC 7 N FAMILY MANIPULAT CHIROPRAC ROSS TX T SPINAL 3-4 REGIONS CHIROPRAC 51067 JAQUELIN LONG TIC 7 N FAMILY MANIPULAT CHIROPRAC ROSS TX T SPINAL 3-4 REGIONS CHIROPRAC 84718 LEODANSARAI VILLEGAS TIC 7 N FAMILY MANIPULAT CHIROPRAC ROSS TX T SPINAL 3-4 REGIONS CHIROPRAC 75671 LEODANSARAI VILLEGAS TIC 7 N FAMILY MANIPULAT CHIROPRAC ROSS TX T SPINAL 3-4 REGIONS CHIROPRAC 34478 LEODANSARAI VILLEGAS TIC 7 N FAMILY MANIPULAT CHIROPRAC ROSS TX T SPINAL 3-4 REGIONS CHIROPRAC 22116 LEODANSARAI VILLEGAS TIC 7 N FAMILY MANIPULAT CHIROPRAC ROSS TX T SPINAL 3-4 REGIONS HEMOGLOBI 27171 MATEO AMJAD N 6 DIABETIC [facility]OSYLA [place], ASUNCION A1C P BLOOD 66642 [facility]IN[facility] COUNT 6 [facility] COMPLETE INC INC AUTO&AUTO DIFRNTL WBC COMPREHEN 90354 [facility] SIVE 6 [facility] METABOLIC INC INC PANEL COLLECTIO 26642 HY[facility]IN[facility] N VENOUS 6 [facility] BLOOD INC INC VENIPUNCT URE LIPID 68266 [facility]IN[facility] PANEL 6 [facility] INC INC CHIROPRAC 54210 JAQUELIN VILLEGAS TIC 6 N FAMILY RANDY MANIPULAT CHIROPRAC ROSS TX T SPINAL 3-4 REGIONS CHIROPRAC 70931 JAQUELIN VILLEGAS TIC 6 N FAMILY RANDY MANIPULAT CHIROPRAC ROSS TX T SPINAL 3-4 REGIONS HEMOGLOBI 03319 MATEO AMJAD N 6 DIABETIC GLYCOSYLA [place], ASUNCION A1C P CHIROPRAC 43039 JAQUELIN VILLEGAS TIC 6 N FAMILY RANDY MANIPULAT CHIROPRAC ROSS TX T SPINAL 3-4 REGIONS CHIROPRAC 09548 JAQUELIN VILLEGAS TIC 6 N FAMILY RANDY MANIPULAT CHIROPRAC ROSS TX T SPINAL 3-4 REGIONS CHIROPRAC 38445 JAQUELIN LONG TIC 6 N FAMILY DARRON MANIPULAT CHIROPRAC ROSS TX T SPINAL 3-4 REGIONS CHIROPRAC 86568 JAQUELIN VILLEGAS TIC 6 N FAMILY RANDY MANIPULAT CHIROPRAC ROSS TX T SPINAL 3-4 REGIONS CHIROPRAC 86664 JAQUELIN LONG TIC 6 N FAMILY DARRON MANIPULAT CHIROPRAC ROSS TX T SPINAL 3-4 REGIONS CHIROPRAC 32771 JAQUELIN LONG TIC 6 N FAMILY DARRON MANIPULAT CHIROPRAC ROSS TX T SPINAL 3-4 [place] [address] HYAC[facility] THYROID 6 [facility] STIMULATI INC INC NG HORMONE TSH LIPID 79495 HYACIN[facility] PANEL 6 [facility] INC INC COLLECTIO 20921 HYACINTH [facility] N VENOUS 6 [facility] BLOOD INC INC VENIPUNCT URE COMPREHEN 77799 HYACIN[facility] SIVE 6 [facility] METABOLIC INC INC PANEL CHIROPRAC 47869 JAQUELIN VILLEGAS TIC 6 N FAMILY RANDY MANIPULAT CHIROPRAC ROSS TX T SPINAL 3-4 REGIONS CHIROPRAC 74440 JAQUELIN VILLEGAS TIC 6 N FAMILY RANDY MANIPULAT CHIROPRAC ROSS TX T SPINAL 3-4 REGIONS HEMOGLOBI 79414 [place] AMJAD SOB N 6 DI[facility]IC [facility] CENTER, ASUNCION A1C P CHIROPRAC 77814 JAQUELIN VILLEGAS TIC 6 N FAMILY RANDY MANIPULAT CHIROPRAC ROSS TX T SPINAL 3-4 REGIONS CHIROPRAC 60185 JAQUELIN VILLEGAS TIC 6 N FAMILY RANDY MANIPULAT CHIROPRAC ROSS TX T SPINAL 3-4 REGIONS CHIROPRAC 00118 LEODANSARAI BAKARI TIC 6 N FAMILY RANDY MANIPULAT CHIROPRAC ROSS TX T SPINAL 3-4 REGIONS CHIROPRAC 87977 LEODANSARAI ETHAN TIC 6 N FAMILY DARRON MANIPULAT CHIROPRAC ROSS TX T SPINAL 3-4 REGIONS HEMOGLOBI 22866 MATEO AMJAD SOB N 6 [facility], ASUNCION A1C P CHIROPRAC 11069 LEODANSARAI BAKARI TIC 6 N FAMILY RANDY MANIPULAT CHIROPRAC ROSS TX T SPINAL 3-4 REGIONS CHIROPRAC 32802 LEODANSARAI BAKARI TIC 6 N FAMILY RANDY MANIPULAT CHIROPRAC ROSS TX T SPINAL 3-4 REGIONS CHIROPRAC 73378 LEODANSARAI BAKARI TIC 6 N FAMILY RANDY MANIPULAT CHIROPRAC ROSS TX T SPINAL 3-4 REGIONS CHIROPRAC 65890 JAQUELIN VILLEGAS TIC 6 N FAMILY RANDY MANIPULAT CHIROPRAC ROSS [place] T SPINAL 3-4 [place] [address] [facility] LARA TRANSVAGI 6 PHYSICIAN DANIKA NAL S GROUP CHIROPRAC 06586 JAQUELIN ETHAN TIC 6 N FAMILY DARRON MANIPULAT CHIROPRAC ROSS TX T SPINAL 3-4 REGIONS CHIROPRAC 05238 LEODANSARAI BAKARI TIC 6 N FAMILY RANDY MANIPULAT CHIROPRAC ROSS TX T SPINAL 3-4 REGIONS CHIROPRAC 13280 JAQUELIN LONG TIC 6 N FAMILY DARRON MANIPULAT CHIROPRAC ROSS TX T SPINAL 3-4 REGIONS CHIROPRAC 02437 JAQUELIN VILLEGAS TIC 6 N FAMILY RANDY MANIPULAT CHIROPRAC ROSS TX T SPINAL 3-4 REGIONS CHIROPRAC 01245 JAQUELIN VILLEGAS TIC 6 N FAMILY RANDY MANIPULAT CHIROPRAC ROSS TX T SPINAL 3-4 [place] [address] [facility] LARA TRANSVAGI 6 PHYSICIAN DANIKA NAL S GROUP RADIOLOGI 29920 [place] [facility] C EXAM 6 MEDICAL EDIS CHEST 2 IMAGING VIEWS ASS FRONTAL&L ATERAL ECG 62378 HYACINTH MARTINEZ ROUTINE 6 [facility] W/LEAST P 12 LDS I&R ONLY URNLS DIP 11799 [facility] LARA 6 PHYSICIAN DANIKA STICK/TAB S GROUP LET RGNT NON-AUTO W/O MICRSCP HEMOGLOBI 68264 [place] AMJAD SOB N 6 DIABETIC GL[place]OSYLA [place], ASUNCION A1C P RADEX 61715 [place] BEINEKE FOOT 5 MEDICAL ROCIO COMPLETE IMAGING MINIMUM 3 ASS VIEWS SURGICAL L3260 ADVANCED ADVANCED BOOT/SHOE 5 TECHNOLOG TECHNOLOG EACH IES INC IES INC CHIROPRAC 16548 JAQUELIN VILLEGAS TIC 5 N FAMILY RANDY MANIPULAT CHIROPRAC ROSS TX T SPINAL 1-2 REGIONS HEMOGLOBI 99982 [place] AMJAD SOB N 5 DIAB[facility]IC [facility] CENTER, ASUNCION A1C P GLUC BLD 74757 HYACINTH CLAROS GLUC MNTR 5 [facility] DEV INC INC [place] [address] [facility], SANABRIA SURG 5 [facility] PATHOLOGY GROSS&ANNA ROSCOPIC EXAM ANESTHESI 54742 [facility] MA[facility] A 5 ANESTH INCOMPLET OF THE E/MISSED BLUE INJECTION J2405 [facility]OS 5 [facility] ONDANSETR INC INC ON HCL PER 1 [place] [address] [facility] INFUSION 5 [facility] THERAPY INC [place] [address] HYAC[facility] INFUSION 5 [facility] THERAPY/P INC INC ROPHYLAXI S /DX 1ST TO 1 HR THERAPEUT 48043 HYACINTH CLAROS IC 5 [facility] INJECTION INC INC IV PUSH EACH NEW DRUG ECG 36772 HYACINTH JAVIER JR ROUTINE 5 [facility] W/LEAST P 12 LDS I&R ONLY TX MISSED 25807 [facility] MARCO 5 PHYSICIAN DANIKA FIRST S GROUP TRIMESTER SURGICAL ECG 86184 HYACINTH CLAROS ROUTINE 5 [facility] ECG INC INC W/LEAST 12 LDS TRCG ONLY W/O I&R US PREG 17450 HYACINTH CLAROS UTERUS 5 [facility] REAL TIME INC INC W/IMAGE DCMTN TRANSVAG DETERMINA 05566 [facility] DUNN SEFERINO 5 GRE GRE REFRACTIV E STATE OPHTH 44807 SHAUN DUNN [facility] 5 GRE GRE XM&EVAL COMPRHNSV ESTAB PT 1/> COMPREHEN 94687 HYACIN[facility] CLAROS SIVE 5 [facility] METABOLIC INC INC PANEL URNLS DIP 45885 [facility] 5 [facility] STICK/TAB INC INC LET REAGENT AUTO MICROSCOP Y BLOOD 02487 HYACIN[facility] CL[facility] COUNT 5 [facility] COMPLETE INC INC AUTO&AUTO DIFRNTL WBC OBSTETRIC 61793 HYACIN[facility] CL[facility] PANEL 5 [facility] INC INC COLLECTIO 12053 HYACINTH CLAR[facility] N VENOUS 5 [facility] BLOOD INC INC VENIPUNCT URE INF AGT G0432 HYACINTH CLAROS AB DETECT 5 [facility] EIA TECH INC INC HIV-1&/HI V-2 SCR US PREG 47006 [facility] LARA UTERUS 5 PHYSICIAN DANIKA REAL TIME S GROUP W/IMAGE DCMTN TRANSVAG IADNA 70134 HYACINTH CLAROS NEISSERIA 5 [facility] INC INC GONORRHOE AE AMPLIFIED PROBE TQ IADNA 77674 [facility] CHLAMYDIA 5 [facility] INC INC TRACHOMAT IS AMPLIFIED PROBE TQ RADEX 52467 SPARTA RICHARDSO FOOT 5 FOOT & N SHABNAM COMPLETE ANKLE CE MINIMUM 3 VIEWS HEMOGLOBI 65411 SPARTA ANTHONYTSINGE N 5 DIABETIC R TAR [facility]YLA CENTER ASUNCION A1C RADEX 80993 [place] [facility] FOOT 5 MEDICAL ROCIO COMPLETE IMAGING MINIMUM [place] [address] [facility], PICKLESIM SURG [facility] PATHOLOGY GROSS&ANNA ROSCOPIC EXAM [place] FLX [address] [facility] JDSTAD 5 PHYSICIAN CAM W/REMOVAL S GROUP LESION BY HOT BX FORCEPS CHIROPRAC 17004 JAQUELIN VILLEGAS TIC 5 N FAMILY RANDY MANIPULAT CHIROPRAC ROSS TX T SPINAL 1-[address] [place] [address] [facility] ABDOMEN & 5 MEDICAL ROCIO PELVIS IMAGING W/O ASS CONTRAST MATERIAL CYTP C/V 82266 [facility], [facility] AUTO THIN 5 [facility] ER JR SUMIT LYR PREPJ SCR MNL RESCR PHYS URNLS DIP 84411 [facility] OJEDA 5 PHYSICIAN MARGOTH STICK/TAB S GROUP LET RGNT NON-AUTO W/O MICRSCP IADNA 48427 [facility], [facility] NEISSERIA 5 LLC ER JR SUMIT GONORRHOE AE AMPLIFIED PROBE TQ IADNA 00263 [facility], [facility] CHLAMYDIA 5 LLC ER JR SUMIT TRACHOMAT IS AMPLIFIED PROBE TQ COLLECTIO 14321 [facility] N VENOUS 5 [facility] BLOOD INC INC VENIPUNCT URE GONADOTRO 55700 HYACINTH CLAROS PIN 5 [facility] [place] [address] [facility] ABDOMEN & 5 MEDICAL ROCIO PELVIS IMAGING W/O ASS CONTRAST MATERIAL CHIROPRA 65609 JAQUELIN VILLEGAS TIC 5 N FAMILY RANDY MANIPULAT CHIROPRAC ROSS TX T SPINAL 1-2 REGIONS COLLECTIO 37802 HYACINTH CLAROS N VENOUS 5 [facility] BLOOD INC INC VENIPUNCT URE LIPID 64174 HYACINTH CLAROS PANEL 5 [facility] INC INC HEMOGLOBI 58767 [place] COBIAN SOB N 5 [facility], ASUNCION A1C P DIAB ONLY A5500 MATEO AMJAD SOB FIT CSTM 5 DIABETIC PREP&SPL CENTER, SHOE MX P DNSITY INSRT FOR DIAB A5512 MATEO MUHAMMADD SOB ONLY MX 5 DIABETIC DNSITY CENTER, INSRT DIR P FORMD PRFAB EA THERAPEUT 52796 [facility] JEANINE IC 5 PHYSICIAN ANNA PROPHYLAC S GROUP TIC/DX INJECTION SUBQ/IM INJECTION J1040 [facility] JEANINE 5 PHYSICIAN ANNA METHYLPRE S GROUP DNISOLONE ACETATE 80 MG COLLECTIO 18722 [facility] COBIAN SOB N VENOUS 5 DIABETIC BLOOD CENTER VENIPUNCT URE CHIROPRAC 27351 JAQUELIN VILLEGAS TIC 5 N FAMILY RANDY MANIPULAT CHIROPRAC ROSS TX T SPINAL 1-2 REGIONS THERAPEUT 57687 JAQUELIN VILLEGAS IC PX 1/> 5 N FAMILY RANDY AREAS CHIROPRAC EACH 15 T MIN EXERCISES CHIROPRAC 84358 JAQUELIN VILLEGAS TIC 5 N FAMILY RANDY MANIPULAT CHIROPRAC ROSS TX T SPINAL 1-2 REGIONS APPL 65494 JAQUELIN VILLEGAS MODALITY 5 N FAMILY RANDY 1/> AREAS CHIROPRAC TRACTION T MECHANICA L CHIROPRAC 82936 JAQUELIN VILLEGAS TIC 5 N FAMILY RANDY MANIPULAT CHIROPRAC ROSS TX T SPINAL 1-2 REGIONS THERAPEUT 14611 JAQUELIN VILLEGAS IC PX 1/> 5 N FAMILY RANDY AREAS CHIROPRAC EACH 15 T MIN EXERCISES [facility]- 86996 HYACINTH ROTH 5 [facility] DETECTION INC INC SCREENING MAMMOGRAP HY SCREENING G0202 [facility]OS 5 [facility] MAMMOGRAP INC INC HY CHIRAG INCL CAD WHEN PERFORMD CHIROPRAC 22456 JAQUELIN VILLEGAS TIC 5 N FAMILY RANDY MANIPULAT CHIROPRAC ROSS TX T SPINAL 1-2 REGIONS THERAPEUT 37653 JAQUELIN VILLEGAS IC PX 1/> 5 N FAMILY RANDY AREAS CHIROPRAC EACH 15 T MIN EXERCISES APPL 24875 JAQUELIN VILLEGAS MODALITY 5 N FAMILY RANDY 1/> AREAS CHIROPRAC ELEC T STIMJ EA 15 MIN HEMOGLOBI 23077 [facility]AL N 5 MORMONISM MORMONISM [facility] HOSP ASUNCION A1C COMPREHEN 72862 [facility] SIVE 5 MORMONISM MORMONISM METABOLIC HOSP HOSP PANEL THERAPEUT 59946 JAQUELIN VILLEGAS IC PX 1/> 5 N FAMILY RANDY AREAS CHIROPRAC EACH 15 T MIN EXERCISES CHIROPRAC 26451 JAQUELIN VILLEGAS TIC 5 N FAMILY RANDY MANIPULAT CHIROPRAC ROSS TX T SPINAL 1-2 REGIONS 82812 [facility] LARA TRANSVAGI 4 PHYSICIAN DANIKA [facility] S GROUP NERVE 39981 [facility] CONDUCTIO 4 NEUROLOGY AYAD N STUDIES 11-12 CONSULTAN STUDIES T NEEDLE 14221 [facility] EMG EA 4 NEUROLOGY AYAD EXTREMTY W/PARASPI CONSULTAN NL AREA T COMPLETE SMR PRIM 71885 [facility] MARCO SRC WET 4 PHYSICIAN DANIKA [facility] S GROUP NFCT AGT MRI 33329 CENTRAL JONES TRA SPINAL 4 [place] CANAL ORTHOPAED LUMBAR ICS PLC W/O CONTRAST MATERIAL RADIOLOGI 77024 [facility] C EXAM 4 MEDICAL ROCIO CHEST 2 IMAGING VIEWS ASS FRONTAL&L ATERAL RADEX 68207 JONES TRA JONES TRA SPINE 4 LUMBOSACR AL 2/3 VIEWS CHIROPRAC 56139 BAKARI BAKARI TIC 4 RANDY RANDY MANIPULAT ROSS TX SPINAL 3-4 REGIONS THERAPEUT 78326 BAKARI BAKARI IC PX 1/> 4 RANDY RANDY AREAS EACH 15 MIN EXERCISES THERAPEUT 88249 BAKARI BAKARI IC PX 1/> 4 RANDY RANDY AREAS EACH 15 MIN EXERCISES APPL 97028 BAKARI BAKARI MODALITY 4 RANDY RANDY 1/> AREAS TRACTION MECHANICA L CHIROPRAC 10379 BAKARI BAKARI TIC 4 RANDY RANDY MANIPULAT ROSS TX SPINAL 3-4 REGIONS CHIROPRAC 11071 BAKARI BAKARI TIC 4 RANDY RANDY MANIPULAT ROSS TX SPINAL 3-4 REGIONS THERAPEUT 36937 BAKARI BAKARI IC PX 1/> 4 RANDY RANDY AREAS EACH 15 MIN EXERCISES THERAPEUT 39999 BAKARI BAKARI IC PX 1/> 4 RANDY RANDY AREAS EACH 15 MIN EXERCISES CHIROPRAC 18413 BAKARI BAKARI TIC 4 RANDY RANDY MANIPULAT ROSS TX SPINAL 3-4 REGIONS RADEX 38699 [place] RICHARDSO FOOT 4 FOOT & N SHABNAM COMPLETE ANKLE CE MINIMUM 3 VIEWS THERAPEUT 81058 BAKARI BAKARI IC PX 1/> 4 RANDY RANDY AREAS EACH 15 MIN EXERCISES CHIROPRAC 60324 BAKARI BAKARI TIC 4 RANDY RANDY MANIPULAT ROSS TX SPINAL 3-4 REGIONS CHIROPRAC 35046 BAKARI BAKARI TIC 4 RANDY RANDY MANIPULAT ROSS TX SPINAL 3-4 REGIONS THERAPEUT 14720 BAKARI BAKARI IC PX 1/> 4 RANDY RANDY AREAS EACH 15 MIN EXERCISES THERAPEUT 80404 BAKARI BAKARI IC PX 1/> 4 RANDY RANDY AREAS EACH 15 MIN EXERCISES CHIROPRAC 20652 BAKARI BAKARI TIC 4 RANDY RANDY MANIPULAT ROSS [place] SPINAL 3-[address] [place] [address] [facility] ABDOMEN & 4 MEDICAL EDIS PELVIS IMAGING W/O ASS CONTRAST MATERIAL CHIROPRAC 68115 BAKARI BAKARI TIC 4 RANDY RANDY MANIPULAT ROSS TX SPINAL 3-4 REGIONS THERAPEUT 80020 BAKARI BAKARI IC PX 1/> 4 RANDY RANDY AREAS EACH 15 MIN EXERCISES THERAPEUT 19890 BAKARI BAKARI IC PX 1/> 4 RANDY RANDY AREAS EACH 15 MIN EXERCISES CHIROPRAC 27462 BAKARI BAKARI TIC 4 RANDY RANDY MANIPULAT ROSS TX SPINAL 3-4 REGIONS THERAPEUT 65184 BAKARI BAKARI IC PX 1/> 4 RANDY RANDY AREAS EACH 15 MIN EXERCISES CHIROPRAC 73444 BAKARI BAKARI TIC 4 RANDY RANDY MANIPULAT ROSS TX SPINAL 3-4 REGIONS THERAPEUT 34193 BAKARI BAKARI IC PX 1/> 4 RANDY RANDY AREAS EACH 15 MIN EXERCISES CHIROPRAC 18086 BAKARI BAKARI TIC 4 RANDY RANDY MANIPULAT ROSS TX SPINAL 3-4 REGIONS THERAPEUT 35174 BAKARI BAKARI IC PX 1/> 4 RANDY RANDY AREAS EACH 15 MIN EXERCISES CHIROPRAC 99002 BAKARI BAKARI TIC 4 RANDY RANDY MANIPULAT ROSS TX SPINAL 3-4 REGIONS CHIROPRAC 65693 BAKARI BAKARI TIC 4 RANDY RANDY MANIPULAT ROSS TX SPINAL 3-4 REGIONS THERAPEUT 93317 BAKARI BAKARI IC PX 1/> 4 RANDY RANDY AREAS EACH 15 MIN EXERCISES THERAPEUT 42640 BAKARI BAKARI IC PX 1/> 4 RANDY RANDY AREAS EACH 15 MIN EXERCISES CHIROPRAC 62134 ABKARI BAKARI TIC 4 RANDY RANDY MANIPULAT ROSS TX SPINAL 3-4 REGIONS CHIROPRAC 64423 BAKARI BAKARI TIC 4 RANDY RANDY MANIPULAT ROSS TX SPINAL 3-4 REGIONS THERAPEUT 80801 BAKARI VILLEGAS IC PX 1/> 4 RANDY RANDY AREAS EACH 15 MIN EXERCISES 88100 [place] TRANSVAGI 4 DANIKA DANIKA NAL THERAPEUT 05721 BAKARI BAKARI IC PX 1/> 4 RANDY RANDY AREAS EACH 15 MIN EXERCISES CHIROPRAC 80835 BAKARI BAKARI TIC 4 RANDY RANDY MANIPULAT ROSS TX SPINAL 3-4 REGIONS CHIROPRAC 97202 BAKARI BAKARI TIC 4 RANDY RANDY MANIPULAT ROSS TX SPINAL 3-4 REGIONS THERAPEUT 62066 BAKARI VILLEGAS IC PX 1/> 4 RANDY RANDY AREAS EACH 15 MIN EXERCISES THERAPEUT 56110 BAKARI BAKARI IC PX 1/> 4 RANDY RANDY AREAS EACH 15 MIN EXERCISES APPL 02784 BAKARI BAKARI MODALITY 4 RANDY RANDY 1/> AREAS TRACTION MECHANICA L CHIROPRAC 80007 BAKARI VILLEGAS TIC 4 RANDY RANDY MANIPULAT ROSS TX SPINAL 3-4 REGIONS CHIROPRAC 05607 BAKARI BAKARI TIC 4 RANDY RANDY MANIPULAT ROSS TX SPINAL 3-4 REGIONS GONADOTRO 17488 HYACINTH CLAROS PIN 4 [facility] CHORIONIC INC INC QUALITATI VE URINE 65216 [facility] LARA 4 DANIKA DANIKA TEST VISUAL COLOR CMPRSN METHS APPL 83846 BAKARI BAKARI MODALITY 4 RANDY RANDY 1/> AREAS TRACTION MECHANICA L THERAPEUT 16446 BAKARI VILLEGAS IC PX 1/> 4 RANDY RANDY AREAS EACH 15 MIN EXERCISES THERAPEUT 39436 BAKARI VILLEGAS IC PX 1/> 4 RANDY RANDY AREAS EACH 15 MIN EXERCISES APPL 39171 BAKARI BAKARI MODALITY 4 RANDY RANDY 1/> AREAS TRACTION MECHANICA L CHIROPRAC 33381 BAKARI BAKARI TIC 4 RANDY RANDY MANIPULAT ROSS TX SPINAL 3-4 REGIONS CHIROPRAC 87953 BAKARI BAKARI TIC 4 RANDY RANDY MANIPULAT ROSS TX SPINAL 3-4 REGIONS APPL 24381 BAAKRI BAKARI MODALITY 4 RANDY RANDY 1/> AREAS TRACTION MECHANICA L THERAPEUT 30468 BAKARI BAKARI IC PX 1/> 4 RANDY RANDY AREAS EACH 15 MIN EXERCISES APPL 30165 BAKARI VILLEGAS MODALITY 4 RANDY RANDY 1/> AREAS TRACTION MECHANICA L CHIROPRAC 87192 BAKARI VILLEGAS TIC 4 RANDY RANDY MANIPULAT ROSS [place] SPINAL 3-4 REGIONS IRON 67800 COMBINED COMBINED BINDING 4 PHYSICIAN [place]YSIC[place] [address] COMBINED COMBINED FREE 4 PHYSICIAN PHYSICIAN THYROXINE S LA S [place] LIPID 80686 COMBINED COMBINED PANEL 4 PHYSICIAN PHYSICIAN S [place] BLOOD 76551 COMBINED COMBINED COUNT 4 PHYSICIAN PHYSICIAN RETICULOC S LA S LA YTE AUTOMATED GENERAL 81848 COMBINED COMBINED HEALTH 4 PHYSICIAN PHYSICIAN PANEL S LA S LA SEDIMENTA 44234 COMBINED COMBINED TION RATE 4 PHYSICIAN PHYSICIAN RBC S LA S LA NON-AUTOM ATED 25 56146 COMBINED COMBINED HYDROXY 4 PHYSICIAN PHYSICIAN INCLUDES S LA S LA FRACTIONS IF PERFORMED CYANOCOBA 93928 COMBINED COMBINED SCOOTER 4 PHYSICIAN PHYSICIAN VITAMIN S LA S LA B-12 OPHTH 81004 [facility] MEDICAL 4 GRE GRE XM&EVAL COMPRHNSV ESTAB PT 1/> DETERMINA 47873 [facility] TION 4 GRE GRE REFRACTIV E STATE IADNA 83856 PICK[facility]IM PICKLESIM CHLAMYDIA 4 ER JR SUMIT ER JR SUMIT TRACHOMAT IS AMPLIFIED PROBE TQ IADNA 19942 [facility] PICKLESIM NEISSERIA 4 ER JR SUMIT ER JR SUMIT GONORRHOE AE AMPLIFIED PROBE TQ CYTP C/V 87416 PICKLESIM PICKLESIM AUTO THIN 4 ER JR SUMIT ER JR SUMIT LYR PREPJ SCR MNL RESCR PHYS ADMINISTR G0008 [facility] ATION OF 4 [facility] INFLUENZA VIRUS VACCINE INFLUENZA Q2038 [facility] VACC 4 [facility] SPLIT VIRUS 3 YRS & > IM FLUZONE RADEX 87350 [facility] HAND 3 EDIS EDIS MINIMUM 3 VIEWS WRIST L3908 [facility] HAND 3 [place] [address] GINGER GINGER ABDOMEN & 3 EDIS ED[place]EL[place] [address] [facility]BDOMINAL 3 [facility] REAL [place] W/[place] [address] [facility] TRANSVAGI 3 DANIKA DANIKA NAL URINE 87188 [facility] 3 DANIKA DANIKA TEST VISUAL COLOR CMPRSN METHS [place] PREG 81933 [facility] UTERUS 3 DANIKA DANIKA REAL TIME W/IMAGE DCMTN TRANSVAG GONADOTRO 21210 [facility] PIN 3 [facility] CHORIONIC INC INC QUANTITAT ROSS GONADOTRO 95545 [facility] PIN 3 [facility]ORIONIC INC [place] PREG 14246 [facility] UTERUS 3 [facility] REAL TIME INC INC W/IMAGE DCMTN TRANSVAG URNLS DIP 49636 [facility] STICK/TAB INC INC LET REAGENT AUTO MICROSCOP Y BLOOD 94729 [facility] COUNT 3 [facility] COMPLETE INC INC AUTO&AUTO DIFRNTL WBC URINE 10965 [facility] TEST INC INC VISUAL COLOR CMPRSN METHS CULTURE 98461 [facility] BACTERIAL 3 [facility] LIS INC QUANTTATI VE COLONY COUNT URINE COMPREHEN 52706 [facility] SIVE 3 [facility] METABOLIC INC INC PANEL COMPREHEN 49228 [facility] SIVE 3 [facility] METABOLIC INC INC PANEL HEMOGLOBI 52440 [facility] N 3 [facility] GLYCOSYLA INC INC ASUNCION A1C OPHTH 55599 [facility] 3 GRE GRE XM&EVAL COMPRHNSV ESTAB PT 1/> DETERMINA 22123 [facility] GRE GRE REFRACTIV E STATE URINE 33478 [facility] TEST INC INC VISUAL COLOR CMPRSN METHS URNLS DIP 08321 [facility] 3 [facility] STICK/TAB INC INC LET REAGENT AUTO MICROSCOP Y URNLS DIP 10-29-201 44259 [facility] 2 DANIKA DANIKA STICK/TAB LET RGNT NON-AUTO W/O MICRSCP CYTP C/V 95036 PICKLESIM PICKLESIM AUTO THIN 2 ER JR SUMIT ER JR SUMIT LYR PREPJ SCR MNL RESCR PHYS APPL 54338 [facility] MODALITY 2 [facility] 1/> AREAS INC INC ELEC STIMJ UNATTENDE D THERAPEUT 39800 [facility] IC PX 1/> 2 [facility] AREAS INC INC EACH 15 MIN EXERCISES APPLICATI 70654 [facility] ON 2 [facility] MODALITY INC INC 1/> AREAS HOT/COLD PACKS APPLICATI 23849 [facility] ON [facility] MODALITY INC INC 1/> AREAS HOT/COLD PACKS THERAPEUT 87828 [facility] IC PX 1/> 2 [facility] AREAS INC INC EACH 15 MIN EXERCISES APPL 79065 [facility] MODALITY 2 [facility] 1/> AREAS INC INC ELEC STIMJ UNATTENDE D APPL 25772 [facility] MODALITY 2 [facility] 1/> AREAS INC INC ELEC STIMJ EA 15 MIN APPLICATI 44600 [facility] ON 2 [facility] MODALITY INC INC 1/> AREAS HOT/COLD PACKS APPL 55457 [facility] MODALITY 2 [facility] 1/> AREAS INC INC ELEC STIMJ UNATTENDE D THERAPEUT 52634 [facility] IC PX 1/> 2 [facility] AREAS INC INC EACH 15 MIN EXERCISES SEDIMENTA 91440 COMBINED COMBINED TION RATE 2 PHYSICIAN PHYSICIAN [place] [address] COMBINED COMBINED THYROXINE 2 PHYSICIAN PHYSICIAN TOTAL S LA S LA LIPID 32650 COMBINED COMBINED PANEL 2 PHYSICIAN PHYSICIAN S LA S LA GENERAL 38721 COMBINED COMBINED HEALTH 2 PHYSICIAN PHYSICIAN PANEL S LA S LA THYROID 73469 COMBINED COMBINED HORM 2 PHYSICIAN PHYSICIAN UPTK/THYR S LA S LA OID HORMONE BINDING RATIO PHYSICAL 36598 [facility] THERAPY 2 [facility] EVALUATIO INC INC N 76419 [facility] TRANSVAGI 2 DANIKA DANIKA NAL CYANOCOBA 59006 [facility] SCOOTER 2 [facility] B-12 ORGANIC 31943 [facility] ACID 1 2 [facility] ROSS HEMOGLOBI 67308 [facility] N 2 [facility] ASUNCION A1C GENERAL [address] NRV CNDJ 81828 GUILLEN ANTONINO GUILLEN ANTONINO AMPLITUDE 2 & LATENCY EACH NERVE SENSORY NRV CND 94024 GUILLEN ANTONINO GUILLEN ANTONINO AMPLT&LAT 2 ENCY EA NRV MOTOR W/F-WAVE STD COLLECTIO 30773 PSYCHIATRIC VENOUS [address] [facility] [place] [address] [facility] HOMOCYSTE 2 [facility] REMOVAL 26875 [facility] NON-BIODE 2 DANIKA DANIKA GRADABLE DRUG DELIVERY IMPLANT NEEDLE 96610 JONES TRA JONES TRA EMG EA 2 EXTREMTY W/PARASPI NL AREA COMPLETE NRV CNDJ 90901 JONES TRA JONES TRA AMPLT&LAT 2 ENCY EA NRV MOTOR W/F-WAVE STD NRV CNDJ 00986 JONES TRA JONES TRA AMPLITUDE 2 & LATENCY EACH NERVE SENSORY MRI 52760 JONES TRA JONES TRA SPINAL 2 CANAL CERVICAL W/O CONTRAST MATRL RADEX 35530 JONES TRA JONES TRA SPINE 2 CERVICAL 2 OR 3 VIEWS RADEX 00216 JONES TRA JONES TRA SPINE 2 THORACIC 2 VIEWS CUL BACT 31810 [facility] STOOL 2 [facility] AEROBIC INC INC ISOL SALMONELL A&[place] [address] HYACINTHSEFERINO GARCIAON CLOSTRIDI 2 [facility] [place] [address] [facility] GIARDIA 2 [facility] INC INC OVA&THUAN 05449 HY[facility] HYACINTH ITES 2 [facility] DIRECT INC INC SMEARS CONCENTRA TION & ID DRUG SCR G0434 [facility] NOT 2 CHROMATOG RAPHIC; ANY NUMBER PT ENC COMPREHEN 62736 [facility] SIVE 2 [facility] [address] HYACINTHSEFERINO CL[facility]OS INFUSION 2 [facility] THERAPY INC INC PROPHYLAX IS/DX EA HOUR ANES 68470 [facility] LOWER 2 ANESTH INTESTINE OF [place] [address] HYACINTH HYACINTH INFUSION 2 [facility] THERAPY/P INC INC ROPHYLAXI S /DX 1ST TO 1 HR URINE 26539 [facility] 2 [facility] TEST INC INC VISUAL COLOR CMPRSN METHS EGD 26324 [facility] TRANSORAL 2 [facility] BIOPSY INC INC SINGLE/[place] [address] PATHOLOGY WILFRID PAT SURG 2 & PATHOLOGY CYTOLOGY LAB GROSS&[place] [address] [facility] AMYLASE 2 [facility] INC INC URNLS DIP 61568 HY[facility] GARCIAON 2 [facility] STICK/TAB INC INC LET REAGENT AUTO MICROSCOP Y BLOOD 76154 [facility] COUNT 2 [facility] COMPLETE INC INC AUTO&AUTO DIFRNTL WBC CUL 73418 [facility] PRSMPTV 2 [facility] PTHGNC [place] [address] [facility] ABDOMEN & 2 [facility] PELVIS INC INC W/[place] [address] [facility] LIPASE 2 [facility] INC INC SPECIAL 13879 PATHOLOGY WILFRID PAT STAIN 2 & GROUP 1 CYTOLOGY MICROORGA LAB NISMS I&R SPCL STN 77155 PATHOLOGY WILFRID PAT 2 I&R 2 & EXCPT CYTOLOGY MICROORG/ LAB ENZYME/IM CYT COLONOSCO 23993 ADEOLA ANT ADEOLA ANT PY 2 W/BIOPSY SINGLE/MU LTIPLE COLSC FLX 51617 ADEOLA ANT ADEOLA ANT W/RMVL 2 [place] [address] [facility] ABDOMEN & 2 [facility] PELVIS INC INC W/O CONTRAST MATERIAL URNLS DIP 84588 OAKES OAKES 2 LC LC STICK/TAB LET RGNT NON-AUTO W/O MICRSCP DRUG SCR G0434 LA[facility]ENCE ABDI NOT 1 CHROMATOG RAPHIC; ANY NUMBER PT ENC PRESSURIZ 07755 [facility] ED/NONPRE 1 [facility] SSURIZED INC INC INHALATIO N TREATMENT RADIOLOGI 51026 [facility] EXAM 1 MEDICAL EDIS CHEST 2 IMAGING VIEWS ASS FRONTAL&L ATERAL INJECTION 57929 LAWRENCE BRAVO HAM 1 SINGLE/ML T TRIGGER POINT 3/> MUSCLES NJX 25494 [facility] BRAVO HAM DX/THER 1 SBST EPIDURAL/ SUBARACH LUMBAR/SA CRAL FLUOR 87116 [facility] BRAVO HAM NEEDLE/CA 1 TH SPINE/PAR ASPINAL DX/THER ADDON OPHTH 92269 [facility] 1 VISION ANG XM&EVAL COMPRE NEW PT 1/> VST MRI 45094 NEURODIAG TALANOW SPINAL 1 NOSTICPSC ROL CANAL LUMBAR W/O CONTRAST MATERIAL RADEX 53489 CENTRAL JARVIS SPINE 1 [place] LC LUMBOSACR ORTHOPAED AL 2/3 [facility]CS [facility] VIEWS PRESSURIZ 87861 [facility] ED/NONPRE 1 [facility] SSURIZED INC INC INHALATIO N TREATMENT US BREAST 62639 [facility] REAL 1 [facility] TIME [place] [address] Y[facility]ACIN[facility] INFUSION 1 [facility] THERAPY INC INC PROPHYLAX IS/DX EA HOUR HYSTEROSC 09042 [facility] OPY BX 1 [facility] ENDOMETRI CLINIC OF UM&/POLYP [place] C W/[place] D&[place] [address] CHIPPS KIRK ANNA SURG 1 KIAH & PATHOLOGY DUBILIER GROSS&ANNA ROSCOPIC EXAM ANES 60295 [facility] HYSTEROSC 1 ANESTH ADRIANA OPY&/HYST OF THE EROSALPIN BLUE GOGRAPHY W/BX HYSTEROSC 6812 [facility] OPY 1 [facility] INC INC OTHER 6909 [facility] DILATION 1 [facility] AND INC INC CURETTAGE OF UTERUS GONADOTRO 63520 [facility] PIN 1 [facility] CHORIONIC INC INC QUALITATI VE BLOOD 28785 [facility] COUNT 1 [facility] COMPLETE INC INC AUTO&[place] [address] [facility] TRANSVAGI 1 [facility]ALTH D[facility]IKA NAL CLINIC OF [place] CYTP C/V 18029 PATHOLOGY PATHOLOGY AUTO THIN 0 & & LYR CYTOLOGY CYTOLOGY PREPJ SCR LAB LAB MNL RESCR PHYS IADNA 77714 PATHOLOGY PATHOLOGY NEISSERIA 0 & & CYTOLOGY CYTOLOGY GONORRHOE LAB LAB AE AMPLIFIED PROBE TQ IADNA 70500 PATHOLOGY PATHOLOGY CHLAMYDIA 0 & & CYTOLOGY CYTOLOGY TRACHOMAT LAB LAB IS AMPLIFIED PROBE TQ URINE 90159 [facility] 0 [facility] TEST CLINIC OF VISUAL [place] COLOR CMPRSN METHS ETONOGEST J7307 [facility] REL 0 [facility] CNTRACPT CLINIC OF IMPL SYS [place] INCL IMPL & SPL INSERTION 39817 [facility] 0 [facility] IMPLANTAB CLINIC OF LE [place] CONTRACEP TIVE CAPSULES URINE 03005 [facility] 0 [facility] TEST INC INC VISUAL COLOR CMPRSN METHS RADIOLOGI 49918 [facility] C EXAM 0 [facility] CHEST 2 INC INC VIEWS FRONTAL&L ATERAL URINE 85687 [facility], 9 [facility] J TEST CLINIC OF VISUAL COLOR [place] CMPRSN PLLC METHS LEVONORGE J7302 [facility], STREL-RLS 9 [facility] J E CLINIC OF INTRAUTER N [place] CNTRACPT PLLC 52 MG INSERTION 82001 [facility], 9 [facility] TASHA INTRAUTER CLINIC OF INE DEVICE [place] IUD PLLC COMPREHEN 60534 [facility] SIVE 9 [facility] METABOLIC INC INC PANEL BLOOD 81866 [facility] COUNT 9 [facility] COMPLETE INC INC AUTO&AUTO DIFRNTL WBC CYTP C/V 24538 PATHOLOGY PATHOLOGY AUTO THIN 9 & & LYR CYTOLOGY CYTOLOGY PREPJ SCR LAB LAB MNL RESCR [facility] 02646 [facility] 9 [facility] MIN/< SUBQ [address] PER [facility] DAY E/M S NORMAL CIRCUMCIS 46115 [facility] 9 [facility] W/CLAMP/O [facility] DEV S W/BLOCK SUBQ [address] PER [facility] DAY E/M S NORMAL LOW 741 [facility] CERVICAL 9 [facility] INC INC SECTION 1ST 95730 [facility] 9 [facility] [place] [address] [facility], DELIVERY 9 [facility] CL[facility] OF W/POSTPAR IVAN CARE [place] [facility] 87514 KING CARIAS, DELIVERY 9 ARETHA Andrade ONLY ANESTHESI 68709 [facility], A 9 ANESTH ABELINO F OF THE DELIVERY [place] ONLY 07976 [facility], BIOPHYSIC 9 [facility] TASHA AL CLINIC OF PROFILE W/O [place] NON-STRES [facility] [address] [facility], [facility] LIMITED 1/> [place] FETUSES [facility] DOPPLER 96024 [facility], VELOCIMET 9 [facility] UMBILICAL ARTERY [place] [facility] DOPPLER 67366 [facility], VELOCIMET 9 [facility] J RY CLINIC [facility]MBILICAL ART[facility] [place] [facility] 42872 W[facility] BIOPHYSIC 9 [facility] J AL CLINIC OF PROFILE W/O [place] [address]68 [facility], UTERUS 9 [facility] J REAL TIME CLINIC OF F/U TRNSABDL [place] PER FETUS PLLC 90791 [facility], BIOPHYSIC 9 [facility] J AL CLINIC OF PROFILE W/[place] [address] [facility], 9 [facility] J UTERUS CLINIC OF LIMITED 1/> [place] FETUSES [facility] DOPPLER 58860 [facility], VELOCIMET 9 [facility] J RY CLINIC OF UMBILICAL ARTERY [place] [facility] DOPPLER 72523 [facility], VELOCIMET 9 [facility] J RY CLINIC OF UMBILICAL ARTERY [place] [facility] TRANSFERA 47192 [facility] SE 9 [facility] ASPARTATE INC INC AMINO AST SGOT BLOOD 74584 [facility] COUNT 9 [facility] COMPLETE INC INC AUTO&AUTO DIFRNTL WBC BASIC 49113 [facility] METABOLIC 9 [facility] PANEL INC INC CALCIUM TOTAL 75224 [facility] BIOPHYSIC 9 [facility] J AL CLINIC OF PROFILE W/O [place] [address]67 [facility], UTERUS 9 [facility] J REAL TIME CLINIC OF F/U TRNSABDL [place] PER FETUS [facility] THROMBOPL 67465 [facility] ASTIN 9 [facility] TIME INC INC PARTIAL PLASMA[place] [address] [facility] BLOOD/URI 9 [facility] C ACID INC INC FIBRINOGE 14913 [facility] N 9 [facility] ACTIVITY INC INC PROTHROMB 03620 [facility] IN TIME 9 [facility] INC INC TRANSFERA 26466 [facility] SE 9 [facility] ALANINE INC INC AMINO ALT SGPT FIBRIN 21702 [facility] DGRADJ 9 [facility] PRODUCTS INC INC D-DIMER QUAL/SEMI LACI OBSERVATI 33666 KING CARIAS, ON/INPATI 9 ARETHA Andrade [facility] CARE 55 MINUTES 88223 [facility] NONSTRESS 9 [facility] TEST INC INC URNLS DIP 25545 [facility] 9 [facility] STICK/TAB INC INC LET REAGENT AUTO MICROSCOP Y DOPPLER 51662 [facility], VELOCIMET 9 [facility] J RY CLINIC OF UMBILICAL ARTERY [place] [facility] US PREG 97726 [facility], UTERUS 9 [facility] J REAL TIME CLINIC OF F/U TRNSABDL [place] PER FETUS [facility] 38379 [facility], BIOPHYSIC 9 [facility] J AL CLINIC OF PROFILE W/O [place] NON-STRES [facility] S TESTING BLD GLU A4253 [facility] TEST/REAG 9 PHARMACY PHARMACY T STRIPS #591 #591 HOME BLD GLU MON-50 58195 [facility], BIOPHYSIC 9 [facility] J AL CLINIC OF PROFILE W/O [place] NON-STRES [facility] [place] 73385 [facility], UTERUS 9 [facility] J REAL TIME CLINIC OF F/U TRNSABDL [place] PER FETUS [facility] CUL BACT 87708 COMBINED COMBINED XCPT 9 PHYSICIAN PHYSICIAN URINE S LAB S LAB BLOOD/STO OL AEROBIC ISOL DOPPLER 54356 [facility], VELOCIMET 9 [facility] J RY CLINIC OF UMBILICAL ARTERY [place] [facility] DOPPLER 93319 [facility], VELOCIMET 9 [facility] J RY CLINIC OF UMBILICAL ARTERY [place] [facility] US PREG 37419 [facility], UTERUS 9 [facility] J REAL TIME CLINIC OF F/U TRNSABDL [place] PER FETUS [facility] 92600 [facility], BIOPHYSIC 9 [facility] J AL CLINIC OF PROFILE W/O [place] NON-STRES [facility] [place] 36250 KRAFT, UTERUS 9 FADI R REAL TIME DIAGNOSTI F/U CCENTER TRNSABDL PER FETUS CUL BACT 23113 COMBINED COMBINED XCPT 9 PHYSICIAN PHYSICIAN URINE S LAB S LAB BLOOD/STO OL AEROBIC ISOL ANTIBODY 12787 COMBINED COMBINED CHLAMYDIA 9 PHYSICIAN PHYSICIAN S [place] 34702 MEET, UTERUS 9 SHANELLE REAL TIME DIAGNOSTI A F/U CCENTER TRNSABDL PER FETUS RADIOLOGI 36081 Imer GARNER 9 NATIONAL DANIEL S EXAMINATI CORPORATI ON CHEST ON SINGLE VIEW FRONTAL 32153 [facility], NONSTRESS 9 [employer] J TEST CLINIC OF [place] [facility] 86748 [facility], NONSTRESS 9 [facility] J TEST CLINIC OF [place] [facility] URNLS DIP 71183 [facility]OS 9 [facility] STICK/TAB INC INC LET [place]AG[place] 13880 KRAFT, UTERUS 9 FADI R REAL TIME DIAGNOSTI F/U CCENTER TRNSABDL PER FETUS BLD GLU A4253 [facility] TEST/REAG 8 PHARMACY PHARMACY T STRIPS #591 #591 HOME BLD GLU MON-50 [place] PREG 49111 [facility] UTERUS 8 MORMONISM MORMONISM W/DETAIL HOSP HOSP ANISH 1ST GESTATION DIAB G0109 CEN[facility]AL C[facility]TRAL SELF-MGMT 8 MORMONISM MORMONISM TRN [facility] H[facility] HOSP GROUP SESSION PER 30 MIN ALPHA-FET 07921 [facility] OF OPROTEIN 8 FREECULTR INC FREECULTR INC SERUM URNLS DIP 63019 DHS/CO HYACINTH 8 HEALTH CO HEALTH STICK/TAB [facility]AL CENTER LET RGNT BANK ACCT NON-AUTO W/O MICRSCP [place] OF 11-26-200 28118 [facility] ESTRIOL 8 [facility] INC GONADOTRO 42596 [facility] OF PIN 8 [facility] CHORIONIC QUANTITAT ROSS GLUC BLD 35512 [facility] GLUC MNTR [address] [place] [address] CLEARED BANK ACCT FDA SPEC HOME USE URNLS DIP 28341 [facility]/CO HYACINTH [address] [place] [address] HEALTH STICK/TAB [facility] LET RGNT BANK ACCT NON-AUTO W/O MICRSCP CYTP 92389 [facility] HYACINTH CERV/VAG [address] [place] [address] AUTO THIN [facility] LAYER BANK ACCT PREP MNL SCREEN BLOOD 36309 [facility] OF TYPING 8 [facility] SEROLOGIC RH (D) ANTIBODY 48550 [facility] SCREEN [address] [place] [address] RBC EACH SERUM TECHNIQUE BLOOD 57615 [facility] TYPING [address] [place] [address] SEROLOGIC ABO IADNA 11247 [facility] NEISSERIA [address] [place] [address] GONORRHOE BANK ACCT AE AMPLIFIED PROBE TQ SYPHILIS 42905 [facility] TEST [address] [place] [address] NON-TREPO [facility] NEMAL BANK ACCT ANTIBODY QUAL COLLECTIO 34305 [facility] N VENOUS [address] [place] [address] VENIPUNCT BANK ACCT URE IADNA 36547 [facility] CHLAMYDIA [address] [place] [address] TRACHOMAT BANK ACCT IS AMPLIFIED PROBE TQ ANTIBODY 81039 [facility] RUBELLA [address] [place] [address] [place] [address] [facility] HEPATITIS [address] [place] [address] SURFACE BANK ACCT ANTIGEN GONADOTRO 89713 [facility] PIN 8 [facility] CHORIONIC INC [place] [address] [place] UZIEL, UTERUS 8 MEDICAL RANI P REAL TIME IMAGING W/IMAGE ASSOCIATE DCMTN S TRANSVAG URNLS DIP 63354 [facility] 8 [facility] STICK/TAB INC INC LET REAGENT AUTO MICROSCOP Y BLOOD 06691 [facility] COUNT 8 [facility] COMPLETE INC INC AUTO&AUTO DIFRNTL WBC CULTURE 97099 [facility] BACTERIAL 8 [facility] INC INC QUANTTATI VE COLONY COUNT URINE CULTURE 99454 [facility] BACTERIAL 8 [facility] INC INC QUANTTATI VE COLONY COUNT URINE URINE 92444 [facility] 8 [facility] TEST INC INC VISUAL COLOR CMPRSN METHS COMPREHEN 07999 [facility] SIVE 8 [facility] METABOLIC INC INC PANEL BLOOD 40470 [facility] COUNT 8 [facility] COMPLETE INC INC AUTO&AUTO DIFRNTL WBC URNLS DIP 25780 HY[facility]INTH HYACINTH 8 [facility] STICK/TAB INC INC [place] [address] [facility] AMYLASE 8 [facility] INC INC [place] PREG 41657 [facility] GINGER, UTERUS 8 MEDICAL SHANELLE REAL TIME IMAGING W/IMAGE [place] [address] [facility] LIPASE 8 [facility] INC INC APPLICATI 93.54 Camilla ON OF Parish ENG SPLINT Encounters Encounter Start End Date Code Location Performer Type Date OFFICE 31412 [facility] OUTPAT[facility]EN 7 7 DIABETIC T VISIT CENTER, 25 P MINUTES OFFICE 48955 TRESA GARAY OUTPATIEN 7 7 Viviane CALLE MD,PSC MINUTES OFFICE 12919 [facility] OUTPATIEN 7 7 PHYSICIAN T VISIT GROUP 15 MINUTES OFFICE 70780 [facility] OUTPATIEN 7 7 PHYSICIAN T VISIT GROUP 15 MINUTES OFFICE 04748 [facility] CO[facility]AN OUTPATIEN 7 7 DIABETIC T VISIT CENTER, 25 P MINUTES OFFICE 51999 JAQUELIN VILLEGAS OUTPATIEN 7 7 N FAMILY T VISIT CHIROPRAC 10 T MINUTES OFFICE 59123 [place] AMJAD OUTPATIEN 6 6 DIABETIC T VISIT CENTER, 15 P MINUTES HOSPITAL [facility] - 6 6 [facility] OUTPATIEN INC T OFFICE 98090 [facility] JEANINE OUTPATIEN 6 6 PHYSICIAN T VISIT S GROUP 25 MINUTES OFFICE 59280 [facility]JAD OUTPATIEN 6 6 DIABETIC T VISIT CENTER, 25 P MINUTES OFFICE 85490 [facility] DOBSON [facility]PATIEN 6 6 [facility]ES [facility] - 6 6 [facility] OUTPATIEN INC T OFFICE 62642 [place] [facility] SOB OUTPATIEN 6 6 DIABETIC T VISIT CENTER, 25 P MINUTES OFFICE 98664 [place] [facility] SOB OUTPATIEN 6 6 DIABETIC T VISIT 5 CENTER, MINUTES P OFFICE 48512 JAQUELIN VILLEGAS OUTPATIEN 6 6 N FAMILY RANDY T VISIT CHIROPRAC 10 T MINUTES OFFICE 93108 OLYA DOBSON OUTPATIEN 6 6 [facility] T VISIT 15 MINUTES OFFICE 78414 [facility] LARA OUTPATIEN 6 6 PHYSICIAN DANIKA T VISIT S GROUP 15 MINUTES OFFICE 08970 [facility] DOBSON OUTPATIEN 6 6 [facility] T VISIT 15 MINUTES OFFICE 59063 [facility] FRANCOJAD SOB OUTPATIEN 6 6 DIABETIC T VISIT CENTER, 15 P MINUTES EMERGENCY 25987 JUSTINA SANCHEZ 5 5 PHYSICIAN DEPARTMEN S, PLLC T VISIT HIGH/URGE NT SEVERITY OFFICE 53998 [facility]A REIDEN 5 5 [facility] T VISIT 15 MINUTES OFFICE 68363 JAQUELIN VILLEGAS OUTPATIEN 5 5 N FAMILY RANDY T VISIT CHIROPRAC 10 T MINUTES OFFICE 46253 [place] [facility] SOB OUTPATIEN 5 5 DIABETIC T VISIT CENTER, 25 P MINUTES OFFICE 44168 [facility] MARCO OUTPATIEN 5 5 PHYSICIAN DANIKA T VISIT S GROUP 15 MINUTES EMERGENCY 38835 JUSTINA TELLEZ 5 5 PHYSICIAN DEPARTMEN S, PLLC T VISIT MODERATE SEVERITY HOSPITAL [facility] - 5 5 [facility] OUTPATIEN INC T EMERGENCY 61907 [facility] 5 5 [facility] DEPARTMEN INC T VISIT LIMITED/M INOR PROB HOSPITAL HYACINTH - 5 5 [facility] OUTPATIEN INC T HOSPITAL HYACINTH - 5 5 [facility] OUTPATIEN INC T EMERGENCY 39854 [facility] 5 5 [facility] DEPARTMEN INC T VISIT MODERATE SEVERITY HOSPITAL HYACINTH - 5 5 [facility] OUTPATIEN [facility] T EMERGENCY 94905 JUSTINA BOWMAN 5 5 PHYSICIAN ANNA DEPARTMEN S, PLLC T VISIT HIGH/URGE NT SEVERITY HOSPITAL HYACINTH - 5 5 [facility] OUTPATIEN [facility]PITAL HYACINTH - 5 5 [facility] OUTPATIEN INC T OFFICE 71942 [facility] HAZELSWEETIE OUTPATIEN 5 5 FOOT & N SHABNAM T VISIT ANKLE CE 15 MINUTES OFFICE 01526 [facility] DOBSON OUTPATIEN 5 5 [facility] MECRY T VISIT 15 MINUTES OFFICE 55028 [facility] REESEMARJORIE OUTPATIEN 5 5 DIABETIC R TAR T VISIT CENTER 25 MINUTES EMERGENCY 63115 JUSTINA BOWMAN 5 5 PHYSICIAN ANNA DEPARTMEN S, PLLC T VISIT MODERATE SEVERITY OFFICE 84780 [facility] MIKAYLA OUTPATIEN 5 5 PHYSICIAN CAM T VISIT S GROUP 10 MINUTES HOSPITAL HYACINTH - 5 5 [facility] OUTPATIEN INC T OFFICE 64740 [facility] OJEDA OUTPATIEN 5 5 PHYSICIAN MARGOTH T VISIT S GROUP 15 MINUTES OFFICE 49079 [facility] SCHULSTAD OUTPATIEN 5 5 PHYSICIAN CAM T VISIT S GROUP 15 MINUTES EMERGENCY 45016 JUSTINA BOWMAN 5 5 PHYSICIAN ANNA DEPARTMEN S, PLLC T VISIT HIGH/URGE NT SEVERITY OFFICE 04701 [facility] OJEDA OUTPATIEN 5 5 PHYSICIAN MARGOTH T VISIT S GROUP 15 MINUTES OFFICE 57222 [facility] O[facility]ED[facility] OUTPATIEN 5 5 PHYSICIAN MARGOTH T NEW 20 S GROUP MINUTES HOSPITAL [facility]ACIN[facility] - 5 5 [facility] INC T EMERGENCY 88001 JUSTINA ULLOA 5 5 PHYSICIAN LINARES DEPARTMEN S, PLLC T VISIT HIGH/URGE NT SEVERITY [facility]OSPITAL [facility]IN[facility] - 5 5 [facility] T OFFICE 01884 [facility] DOBSON [facility]PAT[facility]EN 5 5 [facility] 15 MINUTES OFFICE 59139 MATEO WOLF OUTPATIEN 5 5 DIABETIC T VISIT CENTER, 25 P MINUTES OFFICE 47009 [facility] YMAN OUTPATIEN 5 5 PHYSICIAN EUG T VISIT S GROUP 10 MINUTES OFFICE 89175 [facility] JEANINE OUTPATIEN 5 5 PHYSICIAN ANNA T VISIT S GROUP 15 MINUTES OFFICE 82035 [facility] PAIZ OUTPATIEN 5 5 [facility] VISIT HOSPITAL 15 MINUTES OFFICE 14989 MATEO WOLF OUTPATIEN 5 5 DIABETIC T VISIT CENTER [address]ES [address] PEDROZA OUTPATIEN 5 5 DANIEL Leon SHABNAM T VISIT MIRTA 15 DPM PSC MINUTES OFFICE 06722 [facility] DOBSON OUTPATIEN 5 5 [facility]ES [facility] HYACIN[facility] - 5 5 [facility] T HOSPITAL CENTRAL - 5 5 [facility]OSP T OFFICE 84597 [facility] OUTPATIEN 5 5 HEALTH AYAD T VISIT MEDICAL 40 GROUP MINUTES OFFICE 11595 JAQUELIN VILLEGAS OUTPATIEN 5 5 N FAMILY RANDY T VISIT CHIROPRAC 10 T MINUTES OFFICE 01705 [facility] LARA OUTPATIEN 4 4 PHYSICIAN DANIKA T VISIT S GROUP 15 MINUTES OFFICE 13187 OLYA DOBSON OUTPATIEN 4 4 [facility] T VISIT 15 MINUTES OFFICE 87297 [facility] JONES TRA OUTPATIEN 4 4 [place] T VISIT ORTHOPAED 15 [facility] MINUTES OFFICE 65935 [facility] CONSULTAT 4 4 NEUROLOGY AYAD ION NEW/ESTAB CONSULTAN PATIENT T 60 MIN OFFICE 52000 [facility] OUTPATIEN 4 4 PHYSICIAN T VISIT S GROUP 25 MINUTES OFFICE 30168 OLYA DOBSON OUTPATIEN 4 4 [facility] T VISIT 15 MINUTES OFFICE 04458 [facility] TRA OUTPATIEN 4 4 [place] T VISIT ORTHOPAED 15 [facility] MINUTES OFFICE 33605 OLYA DOBSON OUTPATIEN 4 4 [facility] T VISIT 15 MINUTES EMERGENCY 73016 [facility] 4 4 [facility] EMERGENCY T VISIT PHYS HIGH/URGE NT SEVERITY OFFICE 02838 MATEO HAZELSO OUTPATIEN 4 4 FOOT & N SHABNAM T VISIT ANKLE CE 15 MINUTES OFFICE 37267 JONES TRA JONES TRA OUTPATIEN 4 4 T VISIT 15 MINUTES OFFICE 82969 [place] [facility] 4 4 FOOT & N SHABNAM T NEW 30 ANKLE CE MINUTES OFFICE 41164 OLYA DOBSON OUTPATIEN 4 4 [facility] T VISIT 15 MINUTES OFFICE 38526 BAKARI VILLEGAS OUTPATIEN 4 4 RANDY RANDY T VISIT 10 MINUTES EMERGENCY 09427 JEANINE BOWMAN 4 4 ANNA ANNA DEPARTMEN T VISIT HIGH/URGE NT SEVERITY OFFICE 65668 OLYA DOBSON OUTNATALIE 4 4 [facility] T VISIT 15 MINUTES OFFICE 94051 BAKARI VILLEGAS OUTPATIEN 4 4 RANDY RANDY T VISIT 10 MINUTES OFFICE 96906 BAKARI VILLEGAS OUTPATIEN 4 4 RANDY RANDY T VISIT 10 MINUTES [facility] HYACINTH - 4 4 [facility] T OFFICE 23284 [facility] LARA OUTPATIEN 4 4 DANIKA DANIKA T VISIT 15 MINUTES OFFICE 05206 BAKARI LYNNPATINICHOLAS 4 4 RANDY RANDY T NEW 30 MINUTES OFFICE 38791 OLYA PAL 4 4 [facility] T VISIT 15 MINUTES OFFICE 73092 OLYA PAL 4 4 [facility] T VISIT 15 MINUTES OFFICE 33493 OLYA PAL 4 4 [facility] T VISIT 15 MINUTES PERIODIC 72938 MARCO LARA PREVENTIV 4 4 DANIKA DANIKA E MED EST PATIENT 18-39 YRS OFFICE 03529 OLYA PAL 3 3 [facility] T VISIT 15 MINUTES Emergency LILY Brooks MD (ER) 3 19:56 3 21:05 [facility] EMERGENCY 60704 [place] [place] 3 3 DEPARTMEN T VISIT MODERATE SEVERITY OFFICE 60429 ADEOLA ANT ADEOLA ANT SHANEPATINICHOLAS 3 3 T VISIT 15 MINUTES OFFICE 49913 OLAY PAL 3 3 [facility] T VISIT 15 MINUTES Emergency LILY Bowman MD (ER) 3 21:55 3 23:44 [facility] EMERGENCY 64373 JEANINE BOWMAN 3 3 [facility] DEPARTMEN T VISIT HIGH/URGE NT SEVERITY HOSPITAL HYACINTH - 3 3 [facility] T OFFICE 20469 ADEOLA ANT ADEOLA ANT OUTPATIEN 3 3 T VISIT 25 MINUTES OFFICE 99886 WILMER MUÑIZ OUTPATIEN 3 3 T VISIT 25 MINUTES HOSPITAL [facility]ACIN[facility] - 3 3 [facility] T Emergency LILY Escobar (ER) 3 11:33 3 15:32 [facility] HYACINTH - 3 3 [facility] OUTPATIEN INC T EMERGENCY 45613 [facility]ACIN[facility] 3 3 [facility] DEPARTMEN INC T VISIT MODERATE SEVERITY EMERGENCY 26878 LUZ ESCOBAR DEPT 3 3 III FIDE III FIDE VISIT HIGH SEVERITY& THREAT FUNCJ OFFICE 09534 [facility] LYNNPATIEN 3 3 [facility]UTES OFFICE 88094 [facility]A REIDEN 3 3 [facility] T VISIT 15 MINUTES OFFICE 40758 WILMER MUÑIZ OUTPATIEN 3 3 T VISIT 15 MINUTES [facility]OSPITAL [facility] - [facility] T OFFICE 21874 ADEOLA ANT ADEOLA ANT OUTPATIEN 3 3 T VISIT 25 MINUTES EMERGENCY 13150 SHAUN RASHID DEPT 3 3 EMERGENCY FIDE VISIT SERVICES HIGH SEVERITY& THREAT FUNCJ EMERGENCY 06518 [facility] 3 3 [facility] T VISIT LOW/MODER SEVERITY [facility]OSPITAL [facility] - 3 3 [facility] T OFFICE 88450 WILMER GUILLEN ANTONINO OUTPATIEN 2 2 T VISIT 15 MINUTES OFFICE 03427 OLYA DOBSON OUTPATIEN 2 2 [facility] T [facility]ISIT 15 MINUTES OFFICE 23692 OLYA DOBSON OUTPATIEN 2 2 [facility] T VISIT 15 MINUTES OFFICE 45643 ADEOLA ANT ADEOLA ANT OUTPATIEN 2 2 T VISIT 15 MINUTES PERIODIC 62193 [facility]CO LARA PREVENTIV 2 2 DANIKA DANIKA E MED EST PATIENT 18-39 YRS OFFICE 57692 [facility] OUTPATIEN 2 2 [facility] SLEEP T VISIT AND REHA 10 MINUTES HOSPITAL [facility] - 2 2 [facility] T OFFICE 40417 WILMER MUÑIZ GUILLEN ANTONINO OUTPATIEN 2 2 T VISIT 25 MINUTES OFFICE 86337 OLYA DOBSON OUTPATIEN 2 2 [facility]ES [facility] - 2 2 [facility] T OFFICE 54027 MARCO LARA OUTPATIEN 2 2 DANIKA DANIKA T VISIT 15 MINUTES OFFICE 01310 OLYA NITESHVICKEY OUTPATIEN 2 2 [facility] T VISIT 15 MINUTES OFFICE 86552 [facility] HILARIO II OUTPATIEN 2 2 [facility] SLEEP VINCENT T NEW 30 AND REHA MINUTES OFFICE 48570 OLYA DOBSON OUTPATIEN 2 2 [facility] T VISIT 15 MINUTES OFFICE 75537 [facility] LARA OUTPATIEN 2 2 DANIKA DANIKA T VISIT 25 MINUTES OFFICE 03865 WILMER MUÑIZ WILMER MUÑIZ OUTPATIEN 2 2 T NEW 45 MINUTES HOSPITAL ANTHONYON - 2 2 [facility] T OFFICE 47975 ADEOLA ANT ADEOLA ANT OUTPATIEN 2 2 T VISIT 25 MINUTES OFFICE 20690 SAMARIA GARIBAY CONSULTAT 2 2 ION NEW/ESTAB PATIENT 40 MIN OFFICE 74421 SAMARIA MERA LANI OUTPATIEN 2 2 T NEW 30 MINUTES OFFICE 43296 JONES TRA JONES TRA OUTPATIEN 2 2 T VISIT 15 MINUTES OFFICE 24627 JONES TRA JONES TRA OUTPATIEN 2 2 T VISIT 10 MINUTES OFFICE 29432 JONES TRA JONES TRA OUTPATIEN 2 2 T VISIT 15 MINUTES OFFICE 01333 OLYA DOBSON OUTPATIEN 2 2 [facility]ES [facility] - 2 2 [facility] T OFFICE 96640 ADEOLA ANT ADEOLA ANT OUTPATIEN 2 2 T VISIT 25 MINUTES OFFICE 52181 [facility]AM [facility] OUTPAT[facility] 2 2 T VISIT 15 MINUTES OFFICE 35657 [facility]PAT[facility] 2 2 T VISIT 15 MINUTES HOSPITAL [facility] - 2 2 [facility] OUTPATIEN INC T EMERGENCY 37359 SHAUN HOLLAND DEPT 2 2 EMERGENCY VISIT SERVICES HIGH SEVERITY& THREAT FUN EMERGENCY 72564 [facility] 2 2 [facility] T VISIT MODERATE SEVERITY OFFICE 86092 ADEOLA ANT ADEOLA ANT OUTPATIEN 2 2 T NEW 45 MINUTES OFFICE 03222 JEANINE OBWMAN OUTPATIEN 2 2 ANNA ANNA T NEW 20 MINUTES OFFICE 98647 [facility] 2 2 T VISIT 15 MINUTES HOSPITAL [facility] - 2 2 [facility] T OFFICE 03501 [address] OUTPATIEN [address] [facility] 10 HOSPITAL MINUTES P OFFICE 23230 OLYA DOBSON OUTPATIEN 1 1 [facility] T VISIT 15 MINUTES OFFICE 85732 LAWRENCEKURT ABDI [facility] 1 1 T VISIT 15 MINUTES OFFICE 99698 [facility]WR[facility] JIN [facility] 1 1 T VISIT 15 MINUTES EMERGENCY 25522 [facility] 1 1 [facility] T VISIT MODERATE SEVERITY EMERGENCY 87549 LIANG MARGOTH LIANG MARGOTH 1 1 DEPARTMEN T VISIT HIGH/URGE NT SEVERITY HOSPITAL [facility] - 1 1 [facility] T OFFICE 29202 [facility] 1 1 T VISIT 15 MINUTES OFFICE 86809 [facility]PAT[facility] 1 1 T VISIT 15 MINUTES OFFICE 12898 [facility] OUTPAT[facility] 1 1 T VISIT 15 MINUTES OFFICE 12123 [facility] OUT[facility] 1 1 T VISIT 15 MINUTES OFFICE 23027 OLYA DOBSON OUTPATIEN 1 1 [facility] T VISIT 15 MINUTES OFFICE 17042 [facility] OUTPATIEN 1 1 [place] [facility] T VISIT [facility]THOPAED 15 [facility] MINUTES OFFICE 79874 [facility] JARVIS CONSULTAT 1 1 [place] [facility] ION ORTHOPAED NEW/ESTAB [facility] PATIENT 40 MIN EMERGENCY 17874 [facility] 1 1 [facility] T VISIT MODERATE SEVERITY [facility]OSP[facility] - 1 1 [facility] T EMERGENCY 17735 SHAUN PEREYRA 1 1 EMERGENCY ANNA DEPARTMEN SERVICES T VISIT HIGH/URGE NT SEVERITY HOSPITAL [facility] - 1 1 [facility] OFFICE 88158 [facility] OUTPATI[facility] 1 1 HEALTH DANIKA T VISIT CLINIC OF 15 [facility] MINUTES [facility]OSPITAL [facility] 1 1 [facility] 1 1 [facility] T VISIT LOW/MODER SEVERITY EMERGENCY 47872 SHAUN ESCOBAR 1 1 EMERGENCY III [facility] T VISIT HIGH/URGE NT SEVERITY OFFICE 17896 [facility] OUTPATIEN 1 1 HEALTH DANIKA T VISIT CLINIC OF 15 [place] MINUTES [facility]OSP[facility] - 1 1 [facility] 98771 OLYA DOBSON OUTPATIEN 1 1 [facility] T NEW 30 MINUTES OFFICE 01782 [facility] OUTPATI[facility] 1 1 HEALTH DANIKA T VISIT CLINIC OF 15 [place] MINUTES [facility] 90865 [facility] L[facility] PREVENTIV 0 0 HEALTH DANIKA E MED EST CLINIC OF PATIENT ROLAND 18-39 YRS EMERGENCY 19824 [facility] 0 0 [facility] T VISIT LOW/MODER SEVERITY EMERGENCY 38311 SHAUN ESCOBAR 0 0 EMERGENCY III, [facility] SERVICES ABELINO T VISIT HIGH/URGE ASSOCIATE NT S SEVERITY HOSPITAL [facility] - 0 0 [facility] OFF[facility] 26418 [facility], OUTPATIEN 9 9 HEALTH TASHA J T VISIT CLINIC OF 15 MINUTES [place] [facility] EMERGENCY 95630 [facility] 9 9 [facility] T VISIT LIMITED/M [facility] - 9 9 [facility] T EMERGENCY 21469 SHAUN HERNANDEZ, 9 9 EMERGENCY GOSIA Andrade [facility] T VISIT HIGH/URGE ASSOCIATE NT S SEVERITY OFFICE 07724 [facility], OUTPATIEN 9 9 HEALTH [facility]HA J T VISIT CLINIC OF 25 MINUTES [facility] HYACINTH - 9 9 [facility] OUTPATIEN [facility] OFFICE 16543 [facility] OUTPATIEN 9 9 [facility]ALTH [facility]HA J T VISIT CLINIC OF 15 MINUTES [facility] HYACIN[facility] - 9 9 [facility] INPATIENT [facility] HYACIN[facility] - 9 9 [facility] - 9 9 [facility] OUTPATIEN [facility] CENTRAL - 9 9 [facility] T OFFICE 52965 [facility], OUTPATIEN 9 9 [facility] J T VISIT CLINIC OF 15 MINUTES [facility] OFFICE 68016 [facility] OUTPATIEN 9 9 HEALTH [facility]HA J T VISIT CLINIC OF 15 MINUTES [facility] CENTRAL - 9 9 [facility] T OFFICE 96185 JORDON DSOUZA 9 9 SHANELLE ION DIAGNOSTI A NEW/ESTAB CCENTER PATIENT 15 MIN OFFICE 01689 ROSENTHAL ROSENTHAL OUTPATIEN 9 9 Kaylie DOMINGUEZ JR, Kaylie V T VISIT 15 MINUTES HOSP[facility] - 9 9 [facility] EMERGENCY 38317 ANGELA BOWMAN, 9 9 [facility] T VISIT ON MODERATE SEVERITY OFFICE 85471 [facility], OUTPATIEN 9 9 [facility]ALTH [facility] J T VISIT CLINIC OF 15 MINUTES [facility] HYACINTH - 9 9 [facility] T OFFICE 98997 [facility] OUTPATIEN 9 9 HEALTH T[facility]HA Lott T VISIT CLINIC OF 15 MINUTES [facility] HYACINTH - 9 9 [facility] INC T OFFICE 52042 [facility] OUTPATIEN 9 9 HEALTH T[facility]HA Lott T VISIT CLINIC OF 15 MINUTES [facility] EMERGENCY 91737 ANGELA MAL, 9 9 [facility] T VISIT ON HIGH/URGE NT SEVERITY HOSPITAL [facility] - 9 9 [facility] T EMERGENCY 63315 [facility] 9 9 [facility] DEPARTMEN INC T VISIT LIMITED/M INOR [facility] CENTRAL - 9 9 [facility] T OFFICE 16571 ROSENTHAL [facility]HAL [facility] 8 8 JR, J V JR, J V T VISIT 15 MINUTES EMERGENCY 83162 [facility] 8 8 [facility] DEPARTMEN INC T VISIT LIMITED/M INOR [facility] HY[facility]IN[facility] - 8 8 [facility] OUTPATIEN [facility] T HOSPITAL CENTRAL - 8 8 [facility] T OFFICE 54822 [facility] OUTPATIEN 8 8 [facility] T VISIT [facility] 10 [facility] ACCT MINUTES OFFICE 88719 [facility] OUTPATIEN 8 8 [facility] T NEW [facility] MINUTES [facility] ACCT EMERGENCY 81478 [facility] 8 8 [facility] DEPARTMEN INC T VISIT MODERATE SEVERITY [facility]OSPITAL [facility] - 8 8 [facility] T [facility]OSP[facility] - 8 8 [facility] T EMERGENCY 51772 [facility] 8 8 [facility] INC T VISIT HIGH/URGE NT SEVERITY
--- NOTE | 2016-12-07 18:55 | Urgent Treatment Center Report ---
History of Present Issue Date/Time Seen by Provider 12/07/16 3639 Visit Reason Pt arrived:Walked Presenting Problem:PT STATES SINUS AND EAR PAIN THAT STARTED LAST WEEK. PT C/O COUGH AT NIGHT Location if Accident: Onset of symptoms date/time:/ or onset unknown for:MEDICAL HX UNKNOWN Have you (or family members/close friends) recently traveled outside the [place]? N If Yes, where/when: Have you had exposure to infectious disease within the past month? TB? Other? Specify: Patient state that she has been having sinus pain and pressure along with pain in both ears since last week State that pain has continued to get worse State that she is blowing yellowish colored mucous from her nose and the drainage is making her cough at night ALLERGIES Coded Allergies: Honey Bee (BEE,HONEY) (Mild, 12/28/14) milk (Mild, 05/03/15) Uncoded Allergies: CONTRAST MEDIA (Mild, 05/03/15) TAPE (S-BLISTERING WELTS 04/13/11) DISHWASHING LIQUID (STATES IT EATS THE SKIN OFF HER HANDS 08/19/12) Home Medications Active Scripts Ranitidine Hcl (Ranitidine 150MG) 150 MG PO DAILY #30 TAB Prov: 11/13/14 Reported Medications LISINOPRIL (Lisinopril) 10 MG PO DAILY Meloxicam (Meloxicam 15MG) 15 MG PO DAILY #30 AMITRIPTYLINE HCL (Amitriptyline) 15 MG PO QHS History Medical History General CAD? No Angina: No NE: No Hypertension? Yes Hyperlipidemia? No CHF? No DVT? No PE? No COPD? No Asthma? Yes Anemia? No GERD? Yes Gastric ulcers? No GI Bleed? No Hernia? Yes Thyroid Problems? No Hypothyroidism? No CVA? No Seizures? No Diabetes? Yes Insulin Dependent: No Insulin Pump: No Home FSBS? No Renal Insuffiency? No UTI? No Stones? No BPH? No GB Disease: Yes Nephritic Syndrome? No Asplenia? No Hepatitis? No Sickle Cell Disease? No Arthritis? No Migraines? No Cataracts? No Glaucoma? No MRSA? No HIV? No TB? No Anxiety? No Depression? No Cancer? No More? Yes Additional hx: NEUROPATHY Immunization HX DT/Tetanus UNKNOWN Flu NEVER Pneumonia NEVER Surgical Hx Previous Surgery?Y CHOLECYSTECTOMY 2007 ERCP STENT REPLACEMENT& D & C C- SECTION 4/29/09 D&E Family History Family HX Diabetes Yes CAD No Hypertension Yes Hyperlipidemia Yes Cancer No TB No Social History Smoking Hx Smoker: Current Every Day Smoker Tobacco: Yes Type Cigarettes Packs/day 1 1/2 - 2 Packs Alcohol Alcohol: No Review of Systems All Other Systems Reviewed and Negative Constitutional chills, denies weakness ENT ear pain, nose congestion, throat pain. Respiratory cough, denies shortness of breath, denies wheezing Cardiovascular denies chest pain Gastrointestinal denies abdominal pain, denies diarrhea, denies nausea, denies vomiting Physical Exam Vital Signs Vital Signs Date Time Temp Pulse Resp B/P Pulse O2 O2 Flow FiO2 Ox Delivery Rate 12/07 1842 98.3 106 20 116/69 98 General Appearance normal appearance, WD/WN, no apparent distress Ear, Nose, Throat right ear bright red, TM buldging, throat red, irritated Respiratory Status Yes: trachea midline, chest symmetrical, non tender chest. No: respiratory distress. Cardiovascular normal exam, regular rate/rhythm Neurologic alert, normal exam, oriented x 3 Medical Decision Making LABS/Meds/Orders Pt receiving controlled substance in ED? No Departure Departure Time of Disposition 1903 Disposition DC Home or Self Care(routine) Clinical Impression Primary Impression: Otitis media Qualifiers: Otitis media type: unspecified Laterality: right Qualified Code: H66.91 - Otitis media, unspecified, right ear Condition STABLE Referrals Colby ENG,Satya Parr (Family) Patient Instructions DI for Otitis Media (Middle Ear Infection)-Child, Middle Ear Infection Additional Instructions * Monitor Temp. Tylenol and/or Ibuprofen as needed. ER if fever is no less than 101 despite alternating Tylenol and Ibuprofen * Encourage fluids, water, Gatorade, powerade, pedialyte if /toddler/or child * Warm salt water gargles for throat irritation *Warm fluids *Sore throat lozenges *Sleep elevated *humidifier or vaporizer Lots of rest Increase fluids, water, Gatorade, powerade Follow up IMMEDIATELY for new or worsening of symptoms OR no noticeable improvement over the next 48-72 hours. 911 immediately for any life threatening symptoms such as chest pain or difficulty breathing Discharge Counseling Counseled pt/family regarding diagnosis, medications/RX, home care, follow up needs Prescriptions Current Visit Scripts Amoxicillin Trihydrate (Amoxicillin 500MG) 500 MG PO TID #30 CAP Benzonatate (Tessalon Perle) 100 MG PO TID #15 SGL at 1904
--- OUTSIDE RECORDS SUMMARY | 2016-12-07 18:58 | External Medical Summary Rpt | CCD ---
Author Author , LOVE Organization [facility] Address Unknown Phone [email or web address] Care Team Providers Care Supervisor Order Takers Name Role Phone AOKES LC, OAKES Unavailable Unavailable LC [employer] Unavailable Unavailable INC, [employer] AMJAD, AMJAD Unavailable Unavailable AMJAD SOB, AMJAD SOB Unavailable Unavailable ARNOLD, ARNOLD Unavailable Unavailable ARNOLD MERCY, ARNOLD Unavailable Unavailable MERCY ARNOLD MERCY, ARNOLD Unavailable Unavailable MERCY SANDY SANCHEZ, SANDY LAURA Unavailable Unavailable TRESA CALLE, Unavailable Unavailable ,PSC, TRESA CALLE MD,PSC [facility] Unavailable Unavailable MEDICAL GROUP, [facility] FADI KRAFT, Unavailable Unavailable FADI KRAFT BEINEKE Unavailable Unavailable ROCIO BESMENDY MELINDA, BESSON Unavailable Unavailable MELINDA ADEOLA ANT, ADEOLA ANT Unavailable Unavailable ADEOLA ANT, ADEOLA ANT Unavailable Unavailable [facility] Unavailable Unavailable [facility] SHIRLEY WATSON Unavailable Unavailable ROSENTHALKaylie MATHEW JR V, Unavailable Unavailable ROSENTHAL JR, J V [facility], Unavailable Unavailable [facility] Unavailable Unavailable [facility] RODDY ANNA, RODDY Unavailable Unavailable ANNA CHIPPS KIAH & Unavailable Unavailable DUBILIER, CHIPPS KIAH & DUBILIER MARCO GARNICA, LARA Unavailable Unavailable DANIKA MARCO GARNICA, LRAA Unavailable Unavailable TASHA MARRERO, Unavailable Unavailable TASHA LARA [facility]available [facility], Unavailable [facility]available [facility] Unavailable Unavailable [facility], [facility] Unavailable Unavailable [facility], [facility]available Unavailable LAB, [facility] Unavailable Unavailable AND REHA, [facility] OF Unavailable Unavailable THE BLUE, [facility] WILFRID PAT, WILFRID PAT Unavailable Unavailable GINGER EDIS, Unavailable Unavailable GINGER EDIS GINGER EDIS, Unavailable Unavailable GINGER EDIS CURTSINGER TAR, Unavailable Unavailable CURTSINGER TAR JIMMIE VISION, Unavailable Unavailable JIMMIE [facility]ISION CHENCHO ANNA, CHENCHO Unavailable Unavailable ANNA FERRO AMKENZIE, FERRO MAKENZIE Unavailable Unavailable DR DANIEL KIRBY [...] DANIEL S, Unavailable Unavailable JEANINE, DANIEL S [facility] Unavailable Unavailable CHIROPRACT, [facility] MAL, RONDAL E, Unavailable Unavailable MAL, RONDAL E KIRK ANNA, KIRK ANNA Unavailable Unavailable LIANG MARGOTH, LIANG MARGOTH Unavailable Unavailable LIANG MARGOTH, LIANG MARGOTH Unavailable Unavailable KAITLIN ADRIANA, KAITLIN Unavailable Unavailable GOSIA FLOREZ, Unavailable Unavailable GOSIA HERNANDEZ GERALD R, Unavailable Unavailable KING CARIAS [facility] Unavailable Unavailable [place], [facility] Unavailable Unavailable INC, [facility] Unavailable Unavailable HOSPITAL, [facility] Unavailable Unavailable HOSPITAL P, [facility], Unavailable Unavailable [facility], Unavailable Unavailable [facility] ETHAN LONG Unavailable Unavailable ETHAN DAVIDSON Unavailable Unavailable DARRON JARROD, JARROD Unavailable Unavailable JONES TRA, JONES TRA Unavailable Unavailable JONES TRA, JONES TRA Unavailable Unavailable HILARIO II VINCENT, HILARIO Unavailable Unavailable II [facility] Unavailable Unavailable [facility], [facility], Unavailable Unavailable [facility], Unavailable Unavailable [facility] CONCEPCION JR DWI, CONCEPCION Unavailable Unavailable JR DWI [facility] Unavailable Unavailable CENTER, [facility] Unavailable Unavailable CENTER, P, [facility], [facility] & Unavailable Unavailable ANKLE CE, [facility] SANABRIA MERCY, SANABRIA Unavailable Unavailable MERCY LAWRENCE HAM, LAWRENCE HAM Unavailable Unavailable LAWRENCE HAM, LAWRENCE HAM Unavailable Unavailable SHAUN GRE, Unavailable Unavailable SHAUN GRE [facility], Unavailable Unavailable [facility] Unavailable Unavailable SERVICES, [facility] RAM LIS, RAM Unavailable Unavailable LIS SHANELLE DSOUZA, Unavailable Unavailable SHANELLE DSOUZA EMMETT P, Unavailable Unavailable RANI TRIPLETT P JONAS ELIZALDE, JONAS ELIZALDE Unavailable Unavailable LESLEY MCDANIEL, Unavailable Unavailable LESLEY [...] Unavailable LAB, [facility]OLOGY [facility] PICKLESIMER SUMIT, Unavailable Unavailable PICKPETROSIMER JR SUMIT FLORES SHABNAM, Unavailable Unavailable FLORES [...] [facility]ACY [id number] # Unavailable Unavailable [id number], [facility] # [id number] WEHRMAN DEJA ELIZALDE, Unavailable Unavailable WEHRMAN III LESLEY HALL III, Unavailable Unavailable LESLEY ESCOBAR III, WELLS KIM Unavailable Unavailable [facility] Unavailable Unavailable WHANG LANI, WHANG LANI Unavailable Unavailable WHANG LANI, WHANG LANI Unavailable Unavailable JARVIS LC, JARVIS Unavailable Unavailable LC [facility] Unavailable Unavailable OF [place], [facility] [place] Purpose Continuity of Care Document - 11-24-2007 through 2016 Problems Code Diagnosis DOS Provider Status E119 TYPE 2 11-04-2016 [facility], P WITHOUT COMPLICATIO NS E669 OBESITY 11-04-2016 [facility], P [id number] PAIN IN 11-04-2016 [place] UNSPECIFIED DIABETIC LIMB CENTER, P R000 TACHYCARDIA 11-04-2016 [facility]PEC[facility], P E1142 TYPE 2 11-01-2016 [facility] DI[facility]ES ALVA, MELLITUS ,PSC W/DIAB POLYNEUROPA THY G8921 CHRONIC 11-01-2016 [facility] PAIN DUE TO ALVA, TRAUMA ,[facility] [id number] SPONDYLOSIS 11-01-2016 [facility] W/O ALVA, MYELOPATH/R ,PSC ADICULOPATH Y LUMB RGN M5136 OT 11-01-2016 [facility] INTERVERTEB DUNG CALLE MD,PSC DEGEN LUMBAR REGION Q74701 MCFP 11-01-2016 [facility] CURRENT USE ALVA OF OPIATE ,[facility] ANALGESIC M5117 INTERVERTEB 10-12-2016 [facility] RAL DISC FAMILY D/O CHIROPRACT W/RADICULOP ATHY LS RGN M5137 OT 10-12-2016 [facility] INTERVERTEB FAMILY RAL DISC CHIROPRACT DEGEN LUMBOSACRAL REGION M5387 OTHER 10-12-2016 [facility] SPECIFIED FAMILY DORSOPATHIE CHIROPRACT S LUMBOSACRAL REGION [id number] MUSCLE 10-12-2016 [facility] SPASM OF FAMILY BACK CHIROPRACT M9902 SEGMENTAL & 10-12-2016 [facility] SOMATIC FAMILY DYSFUNCTION [facility] THORACIC REGION M9903 SEGMENTAL & 10-12-2016 [facility] SOMATIC FAMILY DYSFUNCTION [facility] OF LUMBAR REGION M9904 SEGMENTAL & 10-12-2016 [facility] SOMATIC FAMILY DYSFUNCTION CHIROPRACT OF SACRAL REGION H6503 ACUTE 10-07-[address] [facility] SEROUS PHYSICIAN OTITIS GROUP MEDIA BILATERAL J029 ACUTE 09-09-[address] [facility] PHARYNGITIS PHYSICIAN GROUP UNSPECIFIED J069 ACUTE UPPER 01-21-2016 [facility] RESPIRATORY INFECTION UNSPECIFIED J329 CHRONIC 01-21-2016 [facility] SINUSITIS UNSPECIFIED Z862 PERSONAL HX 01-21-2016 [facility] DZ BLOOD&BLOOD FORM ORGN IMMUNE [facility] M9901 SEGMENTAL & 01-11-2016 [facility] SOMATIC FAMILY DYSFUNCTION [facility]IR[facility]CT CERVICAL REGION B370 CANDIDAL 12-31-[address] [facility] STOMATITIS PHYSICIANS GROUP B3781 CANDIDAL 12-31-[address] [facility] ESOPHAGITIS PHYSICIANS GROUP B9789 OT VIRAL 12-31-[address] [facility] AGENT CAUSE PHYSICIANS DISEASES GROUP CLASSIFIED ELSW J0190 ACUTE 12-19-2015 [facility] SINUSITIS UNSPECIFIED H109 UNSPECIFIED 10-31-2015 [facility] CONJUNCTIVI TIS J209 ACUTE 10-31-2015 [facility] BRONCHITIS UNSPECIFIED H8109 MENIERES 08-04-2015 [facility] DISEASE UNSPECIFIED EAR N830 FOLLICULAR 06-10-[address] [facility] CYST OF PHYSICIANS OVARY GROUP R102 PELVIC AND 06-10-[address] [facility] PERINEAL PHYSICIANS PAIN GROUP Z6843 BODY MASS 06-10-[address] [facility] INDEX BMI PHYSICIANS 50-59.9 GROUP ADULT N926 IRREGULAR 05-11-[address] [facility] MENSTRUATIO PHYSICIANS N GROUP UNSPECIFIED G4700 INSOMNIA 2015 [facility] UNSPECIFIED E1121 TYPE 2 05-03-2015 [facility] P W/DIABETIC NEPHROPATHY E1165 TYPE 2 05-03-2015 [facility] [place] R0602 SHORTNESS 05-03-2015 [place] [facility] Z720 TOBACCO USE 05-03-2015 [facility] P S35151 PAIN IN 02-07-2015 [facility] LEFT ANKLE PHYSICIANS, PLLC Z41992 PAIN IN 02-07-2015 [place] [facility] FOOT [facility] V36804Q UNSPECIFIED 02-07-2015 [facility] SPRAIN UNS PHYSICIANS, TOES PLLC INITIAL ENCOUNTER B379 CANDIDIASIS 02-05-2015 ARNVICKEY [facility] UNSPECIFIED M9985 OTHER 01-08-2015 [facility] BIOMECHANIC FAMILY AL LESIONS CHIROPRACT OF PELVIC REGION Z09 ENC F/U 12-30-[address] [facility] EXAM AFTR PHYSICIANS CMPL TX OTH GROUP THAN MALIG NEOPLSM Z3009 ENCOUNTER 12-30-[address] 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 INDEX BMI PHYSICIANS 45.0-49.9 GROUP ADULT E089 DIABETES 12-28-2014 [facility] MELLITUS PHYSICIANS, D/T PLLC UNDERLYING COND W/O COMP T21482 UNSPECIFIED 12-28-2014 [facility] ASTHMA PHYSICIANS, WITH ACUTE PLLC EXACERBATIO N R05 COUGH 12-28-2014 [facility] INC O021 MISSED 12-16-[address] [facility] PHYSICIANS GROUP O034 INCOMPLETE 12-16-2014 [facility] SPONTANEOUS LLC W/O COMPLICATIO N Z3A00 WEEKS OF 12-16-2014 [facility] GESTATION ANESTH OF OF THE BLUE NOT SPECIFIED Z3A12 12 WEEKS 12-16-[address] [facility] GESTATION PHYSICIANS OF GROUP O200 THREATENED 12-15-2014 [facility] INC Z3A13 13 WEEKS 12-15-2014 [facility] GESTATION [facility] OF INC Z0100 ENCOUNTER 12-13-2014 [facility] EXAM EYES & GRE VISION W/O ABNORMAL FIND I10 ESSENTIAL 12-09-2014 [facility] HYPERTENSIO INC N O000 ABDOMINAL 12-09-2014 [facility] INC P14472 OTHER SPEC 12-09-2014 [facility] PHYSICIANS, RELATED PLLC COND 1ST TRIMESTER Z3480 ENC 11-25-2014 [facility]ION [facility] OTH NORMAL INC PREG UNS TRIMESTER O0941 SUPERVISION 11-21-[address] [facility] PREG PHYSICIANS W/GRAND GROUP MULTIPARITY FIRST TRI X83665 SUPERVISION 11-21-[address] [facility] ELDERLY PHYSICIANS MULTIGRAVID GROUP A FIRST TRIMESTER O2611 LOW WEIGHT 11-21-[address] [facility] GAIN IN PHYSICIANS GROUP FIRST TRIMESTER 57655 DIAB 10-10-2014 [place] W/NEURO FOOT & MANIFESTS ANKLE CE TYPE II/UNS TYPE UNCNTRL 7295 PAIN IN 10-10-2014 [place] SOFT FOOT & TISSUES OF ANKLE CE LIMB 7823 EDEMA 10-10-2014 [place] [address] SPRAIN AND 10-10-2014 [place] STRAIN OF FOOT & UNSPECIFIED ANKLE CE SITE OF FOOT 4619 ACUTE 10-09-2014 [facility] SINUSITIS, UNSPECIFIED 4659 ACUTE URIS 10-09-2014 [facility] OF UNSPECIFIED SITE 4739 UNSPECIFIED 10-09-[address] [facility] SINUSITIS 36332 MORBID 10-03-2014 [facility] V7791 SCREENING 10-03-2014 [facility] FOR LIPOID [facility] DISORDERS CENTER 8260 CLOSED 09-24-2014 [facility] FRACTURE OF PHYSICIANS, ONE OR PLLC MORE PHALANGES OF FOOT 2113 BENIGN 09-18-[address] [facility] NEOPLASM OF PHYSICIANS COLON GROUP 29928 ABDOMINAL 09-11-[address] [facility] PAIN, LEFT PHYSICIANS LOWER GROUP QUADRANT 6259 UNSPEC 09-01-[address] [facility] SYMPTOM PHYSICIANS ASSOC GROUP W/FEMALE GENITAL ORGANS 48803 ABDOMINAL 09-01-[address] [facility] PAIN, PHYSICIANS UNSPECIFIED GROUP SITE 7202 SACROILIITI 08-28-2014 [facility] S NOT FAMILY ELSEWHERE CHIROPRACT CLASSIFIED 52063 DEGEN 08-28-2014 [facility] LUMBAR/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 CHIROPRACT INTERVERTEB RAL DISC 7243 SCIATICA 08-28-2014 [facility] FAMILY CHIROPRACT 7393 NONALLOPATH 08-28-2014 [facility] IC LESION FAMILY OF LUMBAR CHIROPRACT REGION NEC 7394 NONALLOPATH 08-28-2014 [facility] IC LESION FAMILY OF SACRAL CHIROPRACT REGION NEC 04116 ABDOMINAL 08-26-[address] [facility] PAIN, PHYSICIANS GENERALIZED GROUP V7651 SPECIAL 08-26-[address] [facility] SCREENING PHYSICIANS FOR GROUP MALIGNANT NEOPLASMS COLON 93829 ABDOMINAL 08-23-2014 [facility] PAIN RIGHT PHYSICIANS, LOWER PLLC QUADRANT 4590 UNSPECIFIED 08-18-[address] [facility] HEMORRHAGE PHYSICIANS GROUP 28113 ABDOMINAL 08-18-[address] [facility] PAIN, PHYSICIANS EPIGASTRIC GROUP V7231 ROUTINE 08-13-2014 [facility] GYNECOLOG[facility] AL EXAMINATION V745 SCREENING 08-13-2014 [facility] EXAMINATION LLC FOR VENEREAL DISEASE V221 SUPERVISION 08-12-2014 [facility] OF OTHER [facility] NORMAL INC 5718 OTHER 08-10-2014 [facility] MEDICAL NONALCOHOLI IMAGING ASS C LIVER DISEASE 54403 ABDOMINAL 08-10-2014 [facility] PAIN OTHER PHYSICIANS, SPECIFIED PLLC SITE 63390 DIAB W/O 07-05-2014 [facility] COMP TYPE [facility] II/UNS NOT INC STATED UNCNTRL 4660 ACUTE 07-05-2014 [facility] BRONCHITIS 1120 CANDIDIASIS 05-22-[address] [facility] OF MOUTH PHYSICIANS GROUP 5278 OTHER 05-15-[address] [facility] SPECIFIED PHYSICIANS DISEASES OF GROUP THE SALIVARY GLANDS 4610 ACUTE 05-06-2014 [facility] 34713 DIAB 03-28-2014 DR SANCHEZ W/NEURO Imer KIRBY DPM MANIFESTS PSC TYPE II/UNS NOT UNCNTRL 83729 DIAB W/O 03-27-2014 [facility] MENTION DIABETIC COMP TYPE CENTER II/UNS TYPE UNCNTRL 24853 OBESITY, 03-27-2014 [facility] V770 SCREENING 03-27-2014 [facility] THYROID [facility]AB[facility] DISORDER CENTER 3829 UNSPECIFIED 03-07-2014 [facility] OTITIS MEDIA V7612 OTHER 03-06-2014 [facility] SCREENING [facility] MAMMOGRAM INC 2774 DISORDERS 03-03-2014 [facility] BILIRUBIN HOSP EXCRETION 15813 CAUSALGIA 03-03-2014 [facility] 3569 UNSPEC 03-03-2014 [facility] HEREDIT&IDI [facility] OPATHIC HOSP PERIPHERAL NEUROPATHY 7242 LUMBAGO 03-03-2014 [facility] 7820 DISTURBANCE 03-03-2014 [facility] SKIN [facility] SENSATION HOSP 13320 OTHER 03-03-2014 [facility] ABNORMAL [facility] GLUCOSE HOSP 7906 OTHER 03-03-2014 [facility] ABNORMAL [facility] BLOOD HOSP CHEMISTRY 6101 DIFFUSE 02-19-[address] [facility] CYSTIC PHYSICIANS MASTOPATHY GROUP 33897 MASTODYNIA 02-19-[address] [facility] PHYSICIANS GROUP 3574 POLYNEUROPA 01-02-2014 [facility] [place] THY OTHER ORTHOPAEDIC DISEASES S PLC CLASSIFIED ELSW 6253 DYSMENORRHE 12-31-[address] [facility] A PHYSICIANS GROUP 78672 UNSPECIFIED 12-25-[address] [facility] VAGINITIS PHYSICIANS AND GROUP VULVOVAGINI TIS 7881 DYSURIA 12-25-[address] [facility] PHYSICIANS GROUP 5110 PLEURISY 11-28-2013 [facility] MADRID WITHOUT MENTION EFFUS/CURRE NT TB 8460 SPRAIN AND 11-03-2013 [facility] STR[facility] OF N EMERGENCY LUMBOSACRAL PHYS E9288 OTHER 11-03-2013 [facility] ACCIDENT N EMERGENCY PHYS 7862 COUGH 11-02-2013 [facility] 7391 NONALLOPATH 10-14-2013 BAKARI RANDY IC LESION OF CERVICAL REGION NEC 7392 NONALLOPATH 10-14-2013 BAKARI RANDY IC LESION OF THORACIC REGION NEC 3559 MONONEURITI 09-19-2013 [facility] MADRID S OF UNSPECIFIED SITE 5789 UNSPECIFIED 09-10-2013 JEANINE ANNA HEMORRHAGE OF GASTROINTES TINAL TRACT 6202 OTHER AND 09-10-2013 [place] UNSPECIFIED MEDICAL OVARIAN IMAGING ASS CYST 462 [...] 05-01-2013 [facility] OF EYES GRE AND VISION 08351 OTHER 04-23-2013 [facility] MADRID MALAISE AND FATIGUE V0481 NEED 03-18-2013 [facility] PROPHYLACTI C VACCINATION &INOCULATIO N FLU 9248 CONTUSION 02-05-2013 [facility] MADRID OF MULTIPLE SITES NEC 81455 SWELLING OF 02-04-2013 [facility] LIMB EDIS 18121 SPRAIN AND 02-04-2013 [facility] STRAIN OF UNSPECIFIED SITE OF WRIST 29254 CONTUSION 02-04-2013 [facility] NESBITT OF HAND E9179 OTHER 02-04-2013 [facility] STRIKING EDIS AGAINST W/WO SUBSEQUENT FALL 5758 OTHER 01-16-2013 [facility] ANT SPECIFIED DISORDER OF GALLBLADDER 92195 ABDOMINAL 01-16-2013 [facility] ANT PAIN RIGHT UPPER QUADRANT 17564 UNS 11-29-2012 [facility]HV[facility] GASTRITIS&G ASTRODUODIT IS W/O MENTION HEMORR 5759 UNSPECIFIED 11-29-2012 [facility] MADRID DISORDER OF GALLBLADDER 632 MISSED 08-31-2012 LARA DANIKA 97078 NAUSEA 08-31-2012 GUILLEN ANTONINO ALONE 61355 UNSPEC 08-21-2012 [facility] HEMORRHAGE [facility] EARLY INC ANTEPARTUM 83798 OTH ABN 08-19-2012 [facility] SHAPE/POSIT EDIS ION GRAVID UTERUS ANTEPARTUM 7871 HEARTBURN 04-18-2012 [facility] ANT 29221 ASTHMA, 03-18-2012 [facility] UNSPECIFIED MEM HOS[facility] , INC UNSPECIFIED STATUS 70514 ABDOMINAL 03-18-2012 [facility] PAIN, LEFT MEM HOS[facility] UPPER INC QUADRANT 9195 OT 01-05-2012 [facility] MADRID MX&UNSPEC SITES INSECT BITE NONVENOMOUS INF 22501 DIARRHEA 12-21-2011 [facility] ANT 7213 LUMBOSACRAL 12-14-2011 [facility] SLEEP AND SPONDYLOSIS REHA WITHOUT MYELOPATHY 7231 CERVICALGIA 12-14-2011 [facility] SLEEP AND REHA 8472 LUMBAR 12-14-2011 [facility] SPRAIN AND H SLEEP AND STRAIN REHA 7831 ABNORMAL 11-02-2011 [facility] GARNICA WEIGHT GAIN V2509 OTH GENERAL 10-04-2011 [facility] DANIKA CNSL&ADVICE CONTRACEPT MANAGEMENT V2543 SURVEILLANC 09-06-2011 [facility] GARNICA E PREV PRSC IMPL SUBDERMAL CONTRACEPT 34847 PAIN IN 08-09-2011 WHANG LANI JOINT, ANKLE AND FOOT 7234 BRACHIAL 07-08-2011 JONES TRA NEURITIS OR RADICULITIS NOS 7294 UNSPECIFIED 07-08-2011 JONES TRA FASCIITIS 21206 UNSPECIFIED 04-13-2011 [facility] ANT ESOPHAGITIS 46679 REFLUX 04-13-2011 PATHOLOGY & ESOPHAGITIS CYTOLOGY LAB 49480 ATROPHIC 04-13-2011 PATHOLOGY & GASTRITIS CYTOLOGY WITHOUT LAB MENTION OF HEMORRHAGE 80490 OTHER SPEC 04-13-2011 [facility] ANT GASTRITIS WITHOUT MENTION HEMORRHAGE 5559 REGIONAL 04-13-2011 [facility] ANT ENTERITIS OF UNSPECIFIED SITE 51193 ULCERATION 04-13-2011 [facility] OF [facility]OS[facility] INTESTINE INC 90601 OTHER 04-13-2011 PATHOLOGY & SPECIFIED CYTOLOGY DISORDER OF LAB INTESTINES 5781 BLOOD IN 04-13-2011 [facility] 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[place] ANOMALIES MEDICAL OF SPLEEN IMAGING ASS 5693 HEMORRHAGE 03-30-2011 [facility] ANT OF RECTUM AND ANUS 46517 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 32125 HEMATURIA 02-28-2011 [facility] UNSPECIFIED [facility]OS[facility] INC 31996 GROSS 02-22-2011 [facility] P 5060 BRONCHITIS& 12-24-2010 LIANG MARGOTH PNEUMONITIS DUE TO FUMES&VAPOR S 5082 RESPIRATORY 12-24-2010 [place] CONDITIONS MEDICAL DUE TO IMAGING ASS SMOKE INHALATION 14965 SHORTNESS 12-24-2010 LIANG MARGOTH OF BREATH 48269 OTHER 12-24-2010 [place] NONSPECIFIC MEDICAL ABNORMAL IMAGING ASS FINDING OF LUNG FIELD 84530 BLISTERS 12-24-2010 [facility] W/EPID [facility] LOSS-BURN-S INC SHRAVAN DIGIT NOT THUMB 76166 BLISTERS 12-24-2010 [facility] WITH [facility] EPIDERMAL [...] N STICPSC INTERVERTEB RAL DISC SITE UNSPEC 47059 LUMP OR 07-05-2010 [place] MASS IN MEDICAL [...] IMPLANTABLE [place] [address] CHEST PAIN 05-23-2009 [place] UNSPECIFIED [facility]ING ASSOC[facility]ATES 08080 PAINFUL 05-23-2009 [facility] 67912 SPRAIN AND 05-23-2009 [facility] STRAIN OF MEM [facility]OS[facility] CHONDROSTER INC NAL 8489 UNSPECIFIED 05-23-2009 [place] SITE OF EMERGENCY SPRAIN AND SERVICES STRAIN ASSOCIATES V251 ENCOUNTER 08-05-2008 [facility] INSERT/[facility] VAZQUEZ IU CLINIC OF CONTRACEPTI HÉCTOR VE DEVICE [facility] 26979 NON-HEALING 07-29-2008 [facility] SURGICAL HEALTH WOUND NEC CLINIC OF CY[place] [facility] 00315 CHRONIC 07-17-2008 [facility] FATIGUE [facility] SYNDROME INC V242 ROUTINE 07-17-2008 [facility] HEALTH FOLLOW-UP CLINIC OF HÉCTOR [facility] 605 REDUNDANT 06-18-2008 [facility] PHIMOSIS 53067 ABNORMAL 06-18-2008 [facility] MATERNAL HEALTH GLUCOSE CLINIC OF [place] ANTEPARTUM [facility] 05469 HIGH 06-18-2008 [facility] HEAD AT ANESTH OF TERM, THE DELIVERED [place]UEGRASS 66962 FETOPELVIC 06-18-2008 [facility] ON, CLINIC OF DELIVERED CY[place] [facility] V270 OUTCOME OF 06-18-2008 [facility]OMEN'S DELIVERY HEALTH SINGLE CLINIC OF LIVEBORN [place] [facility] V3001 SINGLE 06-18-2008 [facility] [address] ABNORMAL 06-17-2008 [facility] MATERNAL [facility] GLUCOSE INC TOLERANCE W/DELIVERY 70604 OBESITY 06-17-2008 [facility] COMP PG [facility] CHILDBIRTH/ INC THE PP DELIVERED 07295 EXCESS 06-13-2008 [facility] A[facility] MGMT HÉCTOR MOTH PLL ANTPRTM 76009 TRANSIENT 06-03-2008 [facility] HYPERTENSIO [facility] N OF INC ANTEPARTUM 25115 POLYHYDRAMN 06-03-2008 [facility] ANTEPARTUM CLINIC OF [place]PLIC[place]IO [place] N PLLC 14966 THREATENED 05-29-2008 [facility] PREMATURE [facility] LABOR INC ANTEPARTUM 74391 OTHER 05-29-2008 KING CARIAS MD LABOR, ANTEPARTUM V220 SUPERVISION 05-20-2008 [facility] 41743 ABN MAT 04-30-2008 GLUCOSE DIAGNOSTICC TOLERANCE ENTER COMPL PG CB/PP UNS EOC 55791 OBES COMP 04-30-2008 [facility] PP ANTEPARTUM COND/COMP 16317 MATERNAL 04-03-2008 DIABETES DIAGNOSTICC MELLITUS ENTER ANTEPARTUM 490 BRONCHITIS 04-02-2008 Kaylie SOUSA JR, V SPECIFIED ACUTE OR CHRONIC 77721 OTHER 03-29-2008 MILLER SPECIFED [facility] N ANTEPARTUM V222 03-29-2008 [facility] STATE, [facility] INCIDENTAL INC 94998 LATE 03-17-2008 [facility] VOMITING OF [facility] INC ANTEPARTUM 8483 SPRAIN AND 02-23-2008 MILLER STRAIN OF [employer] 79555 OTH 02-22-2008 KNOWN/SUSPE DIAGNOSTICC CTED ENTER ABNORMALITY -NEC-APC/C 4720 CHRONIC 02-18-2008 ARIADNA RHINITIS Kaylie DOMINGUEZ V 7840 HEADACHE 02-18-[address] [place] [address] OTH SPEC 01-24-2008 COMP DIAGNOSTICC ENTER UNSPEC EPISODE CARE 98513 POOR 01-24-2008 [facility] ANTPRTM COND/COMP 80984 THREATENED 11-30-2007 [place] [facility] 5990 URINARY 11-24-2007 [facility] TRACT [facility] INFECTION INC SITE NOT SPECIFIED 99837 INFECTIONS 11-24-2007 [facility] OF [facility] GENITOURINA INC RY TRACT ANTEPARTUM Medications [...] 10 5- 3- 00 06 TO ve [place] 26 20 20 09 WN [place] 80 [...] 70 8- 9- 00 06 TO ve PA 56 20 20 08 WN N 31 [...] 20 7- 5- 00 06 TO ve PA 76 20 20 08 WN N 00 17 17 91 HC 5 83 PH L AR 1, MA 00 CY 0 MG OF TA CY BL NT ET HI AN A FE 00 07 08 30 30 00 HO Ac RR 90 -2 -2 .0 00 ME ti OU 47 7- 5- 00 06 TO ve S 59 20 20 08 WN BUENORSTRO 08 17 17 97 LF 0 36 PH AT AR E MA 32 CY 5 MG OF TA CY BL NT ET HI AN A LI 68 07 08 30 30 00 HO Ac SI 00 -2 -1 .0 00 ME ti NO 10 1- 8- 00 06 TO ve [place] 26 20 20 08 WN [place] 80 [...] BL ET CY NT HI AN A JA 00 07 08 30 30 00 HO Ac NU 00 -1 -1 .0 00 ME ti 60 7- 8- 00 06 TO ve A 27 20 20 08 WN 10 73 17 17 91 0 1 85 PH MG AR MA TA CY BL ET OF CY NT HI AN A ME 68 [...] BL CY ET NT HI AN A DO 68 07 [...] G NT SP HI R AN A ME 68 06 07 60 30 00 HO Ac TF 38 -2 -2 .0 00 ME ti OR 20 7- 8- 00 06 TO ve PA 76 20 20 08 WN N 00 17 17 37 HC 5 79 PH L AR 1, MA 00 CY 0 MG OF TA CY BL NT ET HI AN A AM 00 06 07 30 [...] ET CY NT HI AN A AM 65 06 07 [...] 10 0- 1- 00 06 TO ve [place] 26 20 20 08 WN [place] 80 [...] 20 4- 3- 00 06 TO ve PA 76 20 20 08 WN N 00 17 17 37 HC 5 79 PH L AR 1, MA 00 CY 0 MG OF TA CY BL NT ET HI AN A LI 68 05 06 30 30 00 HO Ac SI 00 -1 -0 .0 00 ME ti NO 10 8- 9- 00 06 TO ve [place] 26 20 20 08 WN [place] 80 [...] 10 5- 9- 00 06 TO ve [place] 00 20 20 08 WN ED 50 17 17 57 NI 1 14 PH SO AR LO MA NE CY 4 OF MG CY DO NT SE HI PK AN A ME 68 04 05 60 30 00 HO Ac TF 38 -2 -1 .0 00 ME ti OR 20 4- 9- 00 06 TO ve PA 76 20 20 08 WN N 00 17 17 37 HC 5 79 PH L AR 1, MA 00 CY 0 MG OF TA CY BL NT ET HI AN A LI 68 04 05 30 30 00 HO Ac SI 00 -1 -0 .0 00 ME ti NO 10 1- 5- 00 06 TO ve [place] 26 20 20 08 WN IL 80 [...] 20 3- 4- 00 06 TO ve PA 76 20 20 08 WN N 00 [...] BL ET CY NT HI AN A CE 68 03 04 40 [...] 20 2- 7- 00 06 TO ve PA 76 20 20 08 WN N 00 [...] BL CY ET NT HI AN A RA 53 01 [...] 20 7- 0- 00 06 TO ve PA 76 20 20 07 WN N 00 [...] 20 4- 3- 00 06 TO ve PA 76 20 20 07 WN N 00 [...] ME 00 06 08 99 60 30 WV 71 AR Ac TF 78 -0 -1 .0 L- 21 NO ti OR 15 3- 6- 00 MA 88 LD ve PA 05 20 20 RT 9 N 06 11 11 RI HC 1 PH CH L AR AR 50 MA D 0 CY W MG # TA 10 BL 05 ET 91 BUENROSTRO 53 07 08 1 20 10 WV 71 AR Ac LF 74 -2 -1 .0 L- 28 NO ti AM 60 8- 6- 00 MA 74 LD ve ET 27 20 20 RT 6 HO 20 11 11 RI XA 5 PH CH ZO AR AR LE MA D -T CY W MP # DS 10 05 TA 91 BL ET BUENROSTRO 53 07 07 1 20 10 WV 71 AR Ac LF 74 -2 -2 [...] Ac [place] 14 -2 -2 .0 IN 92 ES ti OF 32 5- 5- 00 IC 41 TN ve LO 03 20 20 UT XA 70 11 11 PH CI 1 AR PA N MA CH HC CY AE L L 50 LL 0 C MG TA B [place] 00 05 05 0 25 5 [...] FL 00 04 04 2 1. 1 WV 71 CL Ac UC 17 -1 -1 00 L- 15 AR ti ON 25 5- 8- 0 MA 42 KE ve AZ 41 20 20 RT 4 OL 21 11 11 DE E 1 PH RE 15 AR K 0 MA J MG CY # TA BL 10 ET 05 91 FL 00 04 04 2 1. 1 WV 71 CL Ac UC 17 -1 -1 [...] AN 43 03 03 1 15 15 WV 71 AR Ac TI 19 -1 -1 .0 L- 10 NO ti PY 90 4- 4- 00 MA 88 LD ve RI 01 20 20 RT 4 NE 61 11 11 RI -B 5 PH CH EN AR AR ZO MA D CA CY W IN # E EA [address] 91 OP AM 00 03 03 1 30 10 WV 71 AR Ac OX 78 -1 -1 .0 L- 10 NO ti IC 12 4- 4- 00 MA 88 LD ve IL 61 20 20 RT 5 LI 33 11 11 RI N 1 PH CH 50 AR AR 0 MA D MG CY W # CA PS 10 UL 05 E 91 00 02 02 0 16 5 WV 44 RU Ac 40 -2 -2 .0 L- 91 SH ti 60 1- 1- 00 MA 88 ve 35 20 20 RT 4 NE 70 11 11 IL 5 PH C AR MA CY # 10 05 91 00 02 02 0 16 4 WV 44 RU Ac 40 -1 -1 .0 L- 91 SH ti 60 6- 6- 00 MA 77 ve 35 20 20 RT 5 NE 70 11 11 IL 5 PH C AR MA CY # 10 05 91 AM 00 02 02 0 30 10 WV 71 RU Ac OX 78 -0 -0 .0 L- 05 SH ti IC 12 7- 7- 00 MA 87 ve IL 61 20 20 RT 4 NE LI 33 11 11 IL N 1 PH C 50 AR 0 MA MG CY # CA PS 10 UL 05 E 91 00 04 04 0 12 3 WV 44 WE Ac 40 -0 -0 .0 [...] J #3 TA 93 BL 8 ET OX 00 05 05 00 30 5 RI 78 CL Ac YC 40 -0 -2 .0 TE 24 AR ti OD 60 1- 1- 00 67 KE ve ON 51 20 20 AI E- 20 09 09 D DE AC 1 PH RE ET AR K AM M J IN #3 OP 93 HE 8 N 5- 32 5 00 05 05 00 7. 7 WA [...] 20 RT 7 YC 66 09 09 PA IN 8 PH CH AR AE 25 MA L 0 CY S MG #5 TA 91 BL ET ME 00 02 02 00 21 6 WA 70 GA Ac TH 60 -0 -2 .0 L- 07 IN ti YL 34 8- 6- 00 MA 21 EY ve [place] 59 20 20 RT 8 ED 31 09 09 PA NI 5 PH CH SO AR AE LO MA L NE CY S 4 #5 MG 91 DO SE PK TE 51 01 01 01 20 3 [...] -1 .0 L- 03 AR ti ON 9 5 00 MA 17 KE ve AZ 30 [...] .0 L- 01 ST ti IN 12 5 00 MA 64 IL ve IR 17 20 20 RT 0 LO 66 08 09 30 0 PH JR 0 AR J MG MA V CY CA PS #5 UL 91 E ME 00 01 01 00 21 6 [...] AL AR E MA CY #5 91 FE 00 01 01 00 30 30 WA 88 CL Ac RR 67 -0 -1 .0 L- 13 AR ti OU 70 9- 5- 00 MA 33 KE ve S 07 20 20 RT 5 BUENROSTRO 01 09 09 DE LF 0 PH RE AT AR K E MA J 32 CY 5 MG #5 91 TA BL ET 59 10 01 02 30 30 WA 69 CL Ac 63 -2 -1 .0 L- 92 AR ti 00 4- 5- 00 MA 61 KE ve 41 20 20 RT 1 43 08 09 DE 5 PH RE AR K MA J CY #5 91 AZ 00 12 01 00 6. 5 WA 69 GA Ac IT 78 -1 -0 00 L- 99 IN ti HR 11 4- 1- 0 MA 82 EY ve OM 49 20 20 RT 8 YC 66 08 09 PA IN 8 PH CH AR AE 25 MA L 0 CY S MG #5 TA 91 BL ET 00 12 01 00 18 7 WA 88 GA Ac 03 -1 -0 0. L- 13 IN ti 18 4- 1- 00 MA 21 EY ve 68 20 20 0 RT 8 51 08 09 PA 2 PH CH AR AE MA L CY S #5 91 ME 00 12 01 00 21 6 WA 69 GA Ac TH 60 -1 -0 .0 L- 99 IN ti YL 34 4- 1- 00 MA 82 EY ve [place] 59 20 20 RT 7 ED 31 08 09 PA NI 5 PH CH SO AR AE LO MA L NE CY S 4 #5 MG 91 DO SE PK RA 00 10 12 01 60 30 [...] Procedure DOS Code Location Performer Comment HEMOGLOBI 18317 MATEO COBIAN N 7 DIABETIC [place]OS[place]LA [place], [facility] A1C P BLOOD 15853 TRESA GARAY COUNT 7 TRENTON CALLE MD,PSC AUTO&AUTO DIFRNTL WBC COMPREHEN 32512 TRESA GARAY SIVE 7 CHRISTIE CALLE MD,PSC PANEL DRUG TEST 16112 TRESA GARAY PRSMV 7 ALVA INSTRMNViviane ENG,[place] [address] TRESA GARAY GLUTAMYLT 7 CECILIA CALLE MD,PSC GAMMA CHIROPRAC 71780 JAQUELIN VILLEGAS TIC 7 N FAMILY MANIPULAT CHIROPRAC ROSS TX T SPINAL 3-4 REGIONS CHIROPRAC 61812 JAQUELIN LONG TIC 7 N FAMILY MANIPULAT CHIROPRAC ROSS TX T SPINAL 3-4 [facility] CHIROPRAC 13910 JAQUELIN VILLEGAS TIC 7 N FAMILY MANIPULAT CHIROPRAC ROSS TX T SPINAL 3-4 REG[facility] CHIROPRAC 86133 JAQUELIN VILLEGAS TIC 7 N FAMILY MANIPULAT CHIROPRAC ROSS TX T SPINAL 3-4 REG[facility] CHIROPRAC 01055 JAQUELIN VILLEGAS TIC 7 N FAMILY MANIPULAT CHIROPRAC ROSS TX T SPINAL 3-4 REGIONS CHIROPRAC 10442 JAQUELIN VILLEGAS TIC 7 N FAMILY MANIPULAT CHIROPRAC ROSS TX T SPINAL 3-4 REGIONS CHIROPRAC 81204 JAQUELIN VILLEGAS TIC 7 N FAMILY MANIPULAT CHIROPRAC ROSS TX T SPINAL 3-4 REGIONS CHIROPRAC 47600 JAQUELIN VILLEGAS TIC 7 N FAMILY MANIPULAT CHIROPRAC ROSS TX T SPINAL 3-4 REGIONS CHIROPRAC 59492 LEODANSARAI VILLEGAS TIC 7 N FAMILY MANIPULAT CHIROPRAC ROSS TX T SPINAL 3-4 REGIONS CHIROPRAC 60844 LEODANSARAI VILLEGAS TIC 7 N FAMILY MANIPULAT CHIROPRAC ROSS TX T SPINAL 3-4 REGIONS CHIROPRAC 29032 JAQUELIN BAKARI TIC 7 N FAMILY MANIPULAT CHIROPRAC ROSS TX T SPINAL 3-4 REGIONS HEMOGLOBI 71478 [place] AMJAD N 7 DIABETIC GLYCOSYLA [place], [facility] A1C P CHIROPRAC 12052 JAQUELIN VILLEGAS TIC 7 N FAMILY MANIPULAT CHIROPRAC ROSS TX T SPINAL 3-4 REGIONS CHIROPRAC 10813 JAQUELIN LONG TIC 7 N FAMILY MANIPULAT CHIROPRAC ROSS TX T SPINAL 3-4 REGIONS CHIROPRAC 51261 JAQUELIN VILLEGAS TIC 7 N FAMILY MANIPULAT CHIROPRAC ROSS TX T SPINAL 3-4 REGIONS CHIROPRAC 77172 LEODNASARAI VILLEGAS TIC 7 N FAMILY MANIPULAT CHIROPRAC ROSS TX T SPINAL 3-4 REGIONS CHIROPRAC 34744 JAQUELIN VILLEGAS TIC 7 N FAMILY MANIPULAT CHIROPRAC ROSS TX T SPINAL 3-4 REGIONS CHIROPRAC 37753 LEODANSARAI VILLEGAS TIC 7 N FAMILY MANIPULAT CHIROPRAC ROSS TX T SPINAL 3-4 REGIONS HEMOGLOBI 49893 MATEO MUHAMMADD N 6 DIABETIC GLYCOSYLA [place], AS[facility]ION A1C P BLOOD 27225 HYACINTH CL[facility]OS COUNT 6 [facility] COMPLETE INC INC AUTO&AUTO DIFRNTL WBC COMPREHEN 17531 HYACIN[facility] SIVE 6 [facility] METABOLIC INC INC PANEL COLLECTIO 37083 HYACIN[facility] CL[facility] N VENOUS 6 [facility] BLOOD INC INC VENIPUNCT URE LIPID 53290 HYACIN[facility] CL[facility] PANEL 6 [facility] INC INC CHIROPRAC 32566 JAQUELIN VILLEGAS TIC 6 N FAMILY RANDY MANIPULAT CHIROPRAC ROSS TX T SPINAL 3-4 REGIONS CHIROPRAC 64832 JAQUELIN VILLEGAS TIC 6 N FAMILY RANDY MANIPULAT CHIROPRAC ROSS TX T SPINAL 3-4 REGIONS HEMOGLOBI 85760 [place] AMJAD N 6 DIABETIC GLYCOSYLA CENTER, ASUNCION A1C P CHIROPRAC 46918 LEODANSAMRARoman VILLEGAS TIC 6 N FAMILY RANDY MANIPULAT CHIROPRAC ROSS TX T SPINAL 3-4 REGIONS CHIROPRAC 38601 LEODANSARAI BAKARI TIC 6 N FAMILY RANDY MANIPULAT CHIROPRAC ROSS TX T SPINAL 3-4 REGIONS CHIROPRAC 60542 LEODANSARAI LONG TIC 6 N FAMILY DARRON MANIPULAT CHIROPRAC ROSS TX T SPINAL 3-4 REGIONS CHIROPRAC 40957 JAQUELIN BAKARI TIC 6 N FAMILY RANDY MANIPULAT CHIROPRAC ROSS TX T SPINAL 3-4 REGIONS CHIROPRAC 98805 JAQUELIN ETHAN TIC 6 N FAMILY DARRON MANIPULAT CHIROPRAC ROSS TX T SPINAL 3-4 REGIONS CHIROPRAC 91039 LEODANSARAI ETHAN TIC 6 N FAMILY DARRON MANIPULAT CHIROPRAC ROSS TX T SPINAL 3-4 [place] [address] HYACINTH CLAROS THYROID 6 [facility] STIMULATI INC INC NG HORMONE TSH LIPID 59358 HYACINTH CL[facility] PANEL 6 [facility] INC INC COLLECTIO 34628 HYACINTH CLAROS N VENOUS 6 [facility] BLOOD INC INC VENIPUNCT URE COMPREHEN 54484 HYACINTH CLAROS SIVE 6 [facility] METABOLIC INC INC PANEL CHIROPRAC 62174 JAQUELIN VILLEGAS TIC 6 N FAMILY RANDY MANIPULAT CHIROPRAC ROSS TX T SPINAL 3-4 REGIONS CHIROPRAC 24641 JAQUELIN VILLEGAS TIC 6 N FAMILY RANDY MANIPULAT CHIROPRAC ROSS TX T SPINAL 3-4 REGIONS HEMOGLOBI 75693 [place] AMJAD SOB N 6 DIABETIC GLYCOSYLA CENTER, ASUNCION A1C P CHIROPRAC 28091 JAQUELIN VILLEGAS TIC 6 N FAMILY RANDY MANIPULAT CHIROPRAC ROSS TX T SPINAL 3-4 REGIONS CHIROPRAC 25933 LEODANSARAI BAKARI TIC 6 N FAMILY RANDY MANIPULAT CHIROPRAC ROSS TX T SPINAL 3-4 REGIONS CHIROPRAC 96598 LEODANSARAI BAKARI TIC 6 N FAMILY RANDY MANIPULAT CHIROPRAC ROSS TX T SPINAL 3-4 REGIONS CHIROPRAC 54464 LEODANSARAI ETHAN TIC 6 N FAMILY DARRON MANIPULAT CHIROPRAC ROSS TX T SPINAL 3-4 REGIONS HEMOGLOBI 59663 MATEO AMJAD SOB N 6 DIABETIC GLYCOSYLA CENTER, ASUNCION A1C P CHIROPRAC 45413 JAQUELIN VILLEGAS TIC 6 N FAMILY RANDY MANIPULAT CHIROPRAC ROSS TX T SPINAL 3-4 REGIONS CHIROPRAC 53997 JAQUELIN BAKARI TIC 6 N FAMILY RANDY MANIPULAT CHIROPRAC ROSS TX T SPINAL 3-4 REGIONS CHIROPRAC 11561 JAQUELIN VILLEGAS TIC 6 N FAMILY RANDY MANIPULAT CHIROPRAC ROSS TX T SPINAL 3-4 REGIONS CHIROPRAC 72499 JAQUELIN BAKARI TIC 6 N FAMILY RANDY MANIPULAT CHIROPRAC ROS[place] SPINAL 3-[address] [place] [address] [facility] LARA TRANSVAGI 6 PHYSICIAN DANIKA NAL S GROUP CHIROPRAC 14847 JAQUELIN LONG TIC 6 N FAMILY DARRON MANIPULAT CHIROPRAC ROSS TX T SPINAL 3-4 REGIONS CHIROPRAC 07619 JAQUELIN BAKARI TIC 6 N FAMILY RANDY MANIPULAT CHIROPRAC ROSS TX T SPINAL 3-4 REGIONS CHIROPRAC 89645 JAQUELIN ETHAN TIC 6 N FAMILY DARRON MANIPULAT CHIROPRAC ROSS TX T SPINAL 3-4 REGIONS CHIROPRAC 74185 JAQUELIN VILLEGAS TIC 6 N FAMILY RANDY MANIPULAT CHIROPRAC ROSS TX T SPINAL 3-4 REGIONS CHIROPRAC 83720 JAQUELIN BAKARI TIC 6 N FAMILY RANDY MANIPULAT CHIROPRAC ROSS [place] T SPINAL 3-[place] [address] [facility] LARA TRANSVAGI 6 PHYSICIAN DANIKA NAL S GROUP RADIOLOGI 25401 [place] GINGER C EXAM 6 MEDICAL EDIS CHEST 2 IMAGING VIEWS ASS FRONTAL&L ATERAL ECG 50844 HYACINTH MARTINEZ ROUTINE 6 [facility] W/LEAST P 12 LDS I&R ONLY URNLS DIP [address] [facility] LARA 6 PHYSICIAN DANIKA STICK/TAB S GROUP LET RGNT NON-AUTO W/O MICRSCP HEMOGLOBI 12815 [place] AMJAD SOB N 6 DIABETIC GLYCOSYLA [place], ASUNCION A1C P SURGICAL L3260 ADVANCED ADVANCED BOOT/SHOE 5 TECHNOLOG TECHNOLOG EACH IES INC IES INC RADEX 92244 [place] BEINEKE FOOT 5 MEDICAL ROICO COMPLETE IMAGING MINIMUM 3 ASS VIEWS CHIROPRAC 55996 JAQUELIN VILLEGAS TIC 5 N FAMILY RANDY MANIPULAT CHIROPRAC ROSS TX T SPINAL 1-2 REG[facility] HEMOGLOBI 65774 MATEO AMJAD SOB N 5 DIABETIC GLYCOSYLA [place], [facility] [place] [address] HYACINTH CLAROS INFUSION 5 [facility] THERAPY/P INC INC ROPHYLAXI S /DX 1ST TO 1 HR THERAPEUT 40539 HYACINTH [facility]AROS IC 5 [facility] INJECTION INC INC IV PUSH EACH NEW DRUG ECG 83031 HYACINTH JAVIER JR ROUTINE 5 [facility] W/LEAST P 12 LDS I&R ONLY GLUC BLD 84175 HYACINTH CLAROS GLUC MNTR 5 [facility] DEV INC [place] [address] HYACIN[facility] CLAROS INFUSION 5 [facility] THERAPY INC INC PROPHYLAX IS/DX EA HOUR ECG 64975 HYACINTH CLAROS ROUTINE 5 [facility] ECG INC INC W/LEAST 12 LDS TRCG ONLY W/O I&R INJECTION J2405 HYACINTH CLAROS 5 [facility] ONDANSETR INC INC ON HCL PER 1 MG [place] MISSED [address] [facility] MARCO 5 PHYSICIAN DANIKA FIRST [place] [address] [facility], SANABRIA SURG 5 [facility] PATHOLOGY GROSS&ANNA ROSCOPIC EXAM ANESTHESI 35760 [facility] FERRO MAKENZIE A 5 ANESTH INCOMPLET OF THE E/MISSED BLUE US PREG 39506 [place]ER UTERUS 5 MEDICAL EDIS REAL TIME IMAGING W/IMAGE ASS DCMTN TRANSVAG OPHTH 16779 [facility] 5 GRE GRE XM&EVAL COMPRHNSV ESTAB PT 1/> DETERMINA 05498 [place] TION 5 GRE GRE REFRACTIV E STATE URNLS DIP 79915 HYACINTH CLAROS 5 [facility] STICK/TAB INC INC LET REAGENT AUTO MICROSCOP Y BLOOD 68383 HYACINTH CLAROS COUNT 5 [facility] COMPLETE INC INC AUTO&AUTO DIFRNTL WBC COMPREHEN 65250 HYACINTH CLAROS SIVE 5 [facility] METABOLIC INC INC PANEL OBSTETRIC 86645 HYACINTH CLAROS PANEL 5 [facility] INC INC INF AGT G0432 HYACINTH CLAROS AB DETECT 5 [facility] EIA TECH INC INC HIV-1&/HI V-2 SCR COLLECTIO 77931 HYACINTH CLAROS N VENOUS 5 [facility] BLOOD INC INC VENIPUNCT URE [place] PREG [address] [facility] LARA UTERUS 5 PHYSICIAN DANIKA REAL TIME S GROUP W/IMAGE DCMTN TRANSVAG IADNA 64607 HYACINTH CLAROS NEISSERIA 5 [facility] INC INC GONORRHOE AE AMPLIFIED PROBE TQ IADNA 32087 HYACIN[facility] CL[facility]OS CHLAMYDIA 5 [facility] INC INC TRACHOMAT IS AMPLIFIED PROBE TQ RADEX 76850 DENVER RICHARD FOOT 5 FOOT & N SHABNAM COMPLETE ANKLE CE MINIMUM 3 VIEWS HEMOGLOBI 06066 DENVER CURTSINGE N 5 DIABETIC R TAR GLYCOSYLA CENTER ASUNCION A1C RADEX 03257 [place] BEINEKE FOOT 5 MEDICAL ROCIO COMPLETE IMAGING MINIMUM 3 [place] [address] [facility], PICKLESIM SURG 5 LLC ER [facility] PATHOLOGY GROSS&ANNA ROSCOPIC EXAM COLSC FLX [address] [facility] MIKAYLA 5 PHYSICIAN CAM W/REMOVAL S GROUP LESION BY HOT BX FORCEPS CHIROPRAC 71832 JAQUELIN VILLEGAS TIC 5 N FAMILY RANDY MANIPULAT CHIROPRAC ROSS TX T SPINAL 1-[address] [place] [address] [facility] ABDOMEN & 5 MEDICAL ROCIO PELVIS IMAGING W/O ASS CONTRAST MATERIAL IADNA 92090 [facility], [facility]ICK[facility]IM CHLAMYDIA 5 LLC ER JR SUMIT TRACHOMAT IS AMPLIFIED PROBE TQ URNLS DIP [address] [facility] OJEDA 5 PHYSICIAN MARGOTH STICK/TAB S GROUP LET RGNT NON-AUTO W/O MICRSCP IADNA 93584 [facility], PICKLESIM NEISSERIA 5 LLC ER JR SUMIT GONORRHOE AE AMPLIFIED PROBE TQ CYTP C/V 98567 [facility], [facility] AUTO THIN 5 LLC ER JR SUMIT LYR PREPJ SCR MNL RESCR PHYS COLLECTIO 81572 HYACINTH CLAROS N VENOUS 5 [facility] BLOOD INC INC VENIPUNCT URE GONADOTRO 96087 HYACINTH CLAROS PIN 5 [facility] [place] [address] [facility] ABDOMEN & 5 MEDICAL ROCIO PELVIS IMAGING W/O ASS CONTRAST MATERIAL [facility] 86114 JAQUELIN VILLEGAS TIC 5 N FAMILY RANDY MANIPULAT CHIROPRAC ROSS TX T SPINAL 1-2 REGIONS COLLECTIO 34798 HYACINTH CLAROS N VENOUS 5 [facility] BLOOD INC INC VENIPUNCT URE LIPID 49663 HYACINTH CLAROS PANEL 5 [facility] INC INC FOR DIAB A5512 MATEO AMJAD SOB ONLY MX 5 DIABETIC DNSITY CENTER, INSRT DIR P FORMD PRFAB EA DIAB ONLY A5500 MATEO AMJAD SOB FIT CSTM 5 DIABETIC PREP&SPL CENTER, SHOE MX P DNSITY INSRT HEMOGLOBI 33502 MATEO AMJAD SOB N 5 DIABETIC GLYCOSYLA CENTER, ASUNCION A1C P INJECTION J1040 [facility] JEANINE 5 PHYSICIAN ANNA METHYLPRE S GROUP DNISOLONE ACETATE 80 MG THERAPEUT [address] [facility] JEANINE IC 5 PHYSICIAN ANNA PROPHYLAC S GROUP TIC/DX INJECTION SUBQ/IM COLLECTIO 39464 MATEO COBIAN SOB N VENOUS 5 DIABETIC BLOOD CENTER VENIPUNCT URE THERAPEUT 97844 LEODANSARAI VILLEGAS IC PX 1/> 5 N FAMILY RANDY AREAS CHIROPRAC EACH 15 T MIN EXERCISES CHIROPRAC 65859 LEODANSAMRARoman VILLEGAS TIC 5 N FAMILY RANDY MANIPULAT CHIROPRAC ROSS TX T SPINAL 1-2 REGIONS CHIROPRAC 47328 LEODANSARAI VILLEGAS TIC 5 N FAMILY RANDY MANIPULAT CHIROPRAC ROSS TX T SPINAL 1-2 REGIONS APPL 62652 LEODANSARAI VILLEGAS MODALITY 5 N FAMILY RANDY 1/> AREAS CHIROPRAC TRACTION T MECHANICA L THERAPEUT 07823 JAQUELIN VILLEGAS IC PX 1/> 5 N FAMILY RANDY AREAS CHIROPRAC EACH 15 T MIN EXERCISES CHIROPRAC 32521 JAQUELIN VILLEGAS TIC 5 N FAMILY RANDY MANIPULAT CHIROPRAC ROSS TX T SPINAL 1-2 REGIONS [facility]- 86798 HYACINTH CLAROS AIDED 5 [facility] DETECTION INC INC SCREENING MAMMOGRAP HY SCREENING G0202 HYACINTH CLAROS 5 [facility] MAMMOGRAP INC INC HY CHIRAG INCL CAD WHEN PERFORMD APPL 90516 LEODANSARAI VILLEGAS MODALITY 5 N FAMILY RANDY 1/> AREAS CHIROPRAC ELEC T STIMJ EA 15 MIN THERAPEUT 24164 JAQUELIN VILLEGAS IC PX 1/> 5 N FAMILY RANDY AREAS CHIROPRAC EACH 15 T MIN EXERCISES CHIROPRAC 31038 JAQUELIN VILLEGAS TIC 5 N FAMILY RANDY MANIPULAT CHIROPRAC ROSS TX T SPINAL 1-2 REGIONS COMPREHEN 61306 [facility] SIVE 5 JAINISM [facility] HOSP PANEL HEMOGLOBI 67738 CENTRAL CENTRAL N 5 JAINISM JAINISM GLYCOSYLA HOSP HOSP ASUNCION A1C THERAPEUT 44505 JAQUELIN VILLEGAS IC PX 1/> 5 N FAMILY RANDY AREAS CHIROPRAC EACH 15 T MIN EXERCISES CHIROPRAC 12676 JAQUELIN VILLEGAS TIC 5 N FAMILY RANDY MANIPULAT CHIROPRAC ROSS TX T SPINAL 1-2 REGIONS [address] [facility] MARCO TRANSVAGI 4 PHYSICIAN DANIKA [facility] S GROUP NEEDLE 51799 JAINISM [facility] EMG EA 4 NEUROLOGY AYAD EXTREMTY W/PARASPI CONSULTAN NL AREA T COMPLETE NERVE 01159 [facility] CONDUCTIO 4 NEUROLOGY AYAD N STUDIES -12 CONSULTAN STUDIES T SMR PRIM [address] [facility] MARCO SRC WET 4 PHYSICIAN DANIKA [place] [facility] NFCT AGT MRI 07413 CENTRAL JONES TRA SPINAL 4 [place] CANAL ORTHOPAED LUMBAR ICS PLC W/O CONTRAST MATERIAL RADIOLOGI [address] [place] [address] EXAM 4 MEDICAL ROCIO CHEST 2 IMAGING VIEWS ASS FRONTAL&L ATERAL RADEX 42421 JONES TRA JONES TRA SPINE 4 LUMBOSACR AL 2/3 VIEWS CHIROPRAC 71895 BAKARI BAKARI TIC 4 RANDY RANDY MANIPULAT ROSS TX SPINAL 3-4 REGIONS THERAPEUT 13349 BAKARI BAKARI IC PX 1/> 4 RANDY RANDY AREAS EACH 15 MIN EXERCISES THERAPEUT 97310 BAKARI BAKARI IC PX 1/> 4 RANDY RANDY AREAS EACH 15 MIN EXERCISES APPL 17005 BAKARI BAKARI MODALITY 4 RANDY RANDY 1/> AREAS TRACTION MECHANICA L CHIROPRAC 06998 BAKARI BAKARI TIC 4 RANDY RANDY MANIPULAT ROSS TX SPINAL 3-4 REGIONS CHIROPRAC 17908 BAKARI BAKARI TIC 4 RANDY RANDY MANIPULAT ROSS TX SPINAL 3-4 REGIONS THERAPEUT 92337 BAKARI BAKARI IC PX 1/> 4 RANDY RANDY AREAS EACH 15 MIN EXERCISES THERAPEUT 51117 BAKARI BAKARI IC PX 1/> 4 RANDY RANDY AREAS EACH 15 MIN EXERCISES CHIROPRAC 13483 BAKARI BAKARI TIC 4 RANDY RANDY MANIPULAT ROSS TX SPINAL 3-4 REGIONS RADEX 80327 [place] RICHARDSO FOOT 4 FOOT & N SHABNAM COMPLETE ANKLE CE MINIMUM 3 VIEWS THERAPEUT 24304 BAKARI BAKARI IC PX 1/> 4 RANDY RANDY AREAS EACH 15 MIN EXERCISES CHIROPRAC 84697 BAKARI BAKARI TIC 4 RANDY RANDY MANIPULAT ROSS TX SPINAL 3-4 REGIONS CHIROPRAC 09702 BAKARI BAKARI TIC 4 RANDY RANDY MANIPULAT ROSS TX SPINAL 3-4 REGIONS THERAPEUT 38420 BAKARI BAKARI IC PX 1/> 4 RANDY RANDY AREAS EACH 15 MIN EXERCISES THERAPEUT 16514 BAKARI BAKARI [place] PX 1/> 4 ARNDY RANDY AREAS EACH 15 MIN EXERCISES CHIROPRAC 64841 BAKARI BAKARI TIC 4 RANDY RANDY MANIPULAT ROSS [place] SPINAL 3-[address] [place] [address] [facility] ABDOMEN & 4 MEDICAL EDIS PELVIS IMAGING W/O ASS CONTRAST MATERIAL THERAPEUT 51029 BAKARI BAKARI IC PX 1/> 4 RANDY RANDY AREAS EACH 15 MIN EXERCISES CHIROPRAC 97121 BAKARI BAKARI TIC 4 RANDY RANDY MANIPULAT ROSS TX SPINAL 3-4 REGIONS THERAPEUT 82635 BAKARI BAKARI IC PX 1/> 4 RANDY RANDY AREAS EACH 15 MIN EXERCISES CHIROPRA 87952 BAKARI BAKARI TIC 4 RANDY RANDY MANIPULAT ROSS TX SPINAL 3-4 REGIONS THERAPEUT 25202 [place] PX 1/> 4 RANDY RANDY AREAS EACH 15 MIN EXERCISES CHIROPRAC 78794 BAKARI BAKARI TIC 4 RANDY RANDY MANIPULAT ROSS TX SPINAL 3-4 REGIONS THERAPEUT 02432 BAKARI BAKARI IC PX 1/> 4 RANDY RANDY AREAS EACH 15 MIN EXERCISES CHIROPRAC 63017 BAKARI BAKARI TIC 4 RANDY RANDY MANIPULAT ROSS TX SPINAL 3-4 REGIONS CHIROPRAC 04630 BAKARI BAKRAI TIC 4 RANDY RANDY MANIPULAT ROSS TX SPINAL 3-4 REGIONS THERAPEUT 41332 BAKARI BAKARI IC PX 1/> 4 RANDY RANDY AREAS EACH 15 MIN EXERCISES THERAPEUT 46524 BAKARI BAKARI IC PX 1/> 4 RANDY RANDY AREAS EACH 15 MIN EXERCISES CHIROPRAC 39406 BAKARI BAKARI TIC 4 RANDY RANDY MANIPULAT ROSS TX SPINAL 3-4 REGIONS CHIROPRAC 51913 BAKARI BAKARI TIC 4 RANDY RANDY MANIPULAT ROSS TX SPINAL 3-4 REGIONS THERAPEUT 49031 BAKARI BAKARI IC PX 1/> 4 RANDY RANDY AREAS EACH 15 MIN EXERCISES THERAPEUT 50752 BAKARI BAKARI IC PX 1/> 4 RANDY RANDY AREAS EACH 15 MIN EXERCISES 35381 [facility] TRANSVAGI 4 DANIKA DANIKA NAL CHIROPRAC 55463 BAKARI BAKARI TIC 4 RANDY RANDY MANIPULAT ROSS [place] SPINAL 3-4 REGIONS CHIROPRAC 07996 BAKARI BAKARI TIC 4 RANDY RANDY MANIPULAT ROSS TX SPINAL 3-4 REGIONS THERAPEUT 02813 BAKARI BAKARI IC PX 1/> 4 RANDY RANDY AREAS EACH 15 MIN EXERCISES THERAPEUT 74662 BAKARI BAKARI IC PX 1/> 4 RANDY RANDY AREAS EACH 15 MIN EXERCISES CHIROPRAC 84254 BAKARI BAKARI TIC 4 RANDY RANDY MANIPULAT ROSS TX SPINAL 3-4 REGIONS CHIROPRAC 34068 BAKARI BAKARI TIC 4 RANDY RANDY MANIPULAT ROSS TX SPINAL 3-4 REGIONS THERAPEUT 07563 BAKARI BAKARI IC PX 1/> 4 RANDY RNADY AREAS EACH 15 MIN EXERCISES APPL 33964 BAKARI BAKARI MODALITY 4 RANDY RANDY 1/> AREAS TRACTION MECHANICA L APPL 06972 BAKARI BAKARI MODALITY 4 RANDY RANDY 1/> AREAS TRACTION MECHANICA L THERAPEUT 19080 BAKARI BAKARI IC PX 1/> 4 RANDY RANDY AREAS EACH 15 MIN EXERCISES CHIROPRAC 14404 BAKARI BAKARI TIC 4 RANDY RANDY MANIPULAT ROSS [place] SPINAL 3-4 REGIONS [facility] 16523 [facility]ARA 4 DANIKA DANIKA TEST VISUAL COLOR CMPRSN METHS GONADOTRO 76462 [facility] PIN 4 [facility] INC QUALITATI VE CHIROPRAC 48165 BAKARI BAKARI TIC 4 RANDY RANDY MANIPULAT ROSS TX SPINAL 3-4 REGIONS APPL 58624 BAKARI BAKARI MODALITY 4 RANDY RANDY 1/> AREAS TRACTION MECHANICA L THERAPEUT 27081 BAKARI BAKARI IC PX 1/> 4 RANDY RANDY AREAS EACH 15 MIN EXERCISES APPL 43837 BAKARI BAKARI MODALITY 4 RANDY RANDY 1/> AREAS TRACTION MECHANICA L CHIROPRAC 79878 BAKARI BAKARI TIC 4 RANDY RANDY MANIPULAT ROSS [place] SPINAL 3-4 REGIONS THERAPEUT 78166 [place]AS IC PX 1/> 4 RANDY RANDY AREAS EACH 15 MIN EXERCISES CHIROPRAC 46505 BAKARI VILLEGAS TIC 4 RANDY RANDY MANIPULAT ROSS TX SPINAL 3-4 REGIONS APPL 33131 BAKARI VILLEGAS MODALITY 4 RANDY RANDY 1/> AREAS TRACTION MECHANICA L SEDIMENTA 58636 COMBINED COMBINED TION RATE 4 PHYSICIAN PHYSICIAN RBC S LA S LA NON-AUTOM ATED LIPID 95257 COMBINED COMBINED PANEL 4 PH[place] [address] COMBINED COMBINED FREE 4 PHYSICIAN PHYSICIAN THYROXINE S LA S LA GENERAL 93672 COMBINED COMBINED HEALTH 4 PHYSICIAN PHYSICIAN PANEL S LA S LA IRON 41442 COMBINED COMBINED BINDING 4 PHYSICIAN PHYSICIAN CAPACITY S LA S LA BLOOD 95091 COMBINED COMBINED COUNT 4 PHYSICIAN PHYSICIAN RETICULOC S LA S LA YTE AUTOMATED 25 29556 COMBINED COMBINED HYDROXY 4 PHYSICIAN PHYSICIAN INCLUDES S LA S LA FRACTIONS IF PERFORMED CYANOCOBA 18883 COMBINED COMBINED SCOOTER 4 PHYSICIAN PHYSICIAN VITAMIN S LA S LA B-12 DETERMINA 39276 SHAUN CHOALL TION 4 GRE GRE REFRACTIV E STATE OPHTH 31714 [facility] 4 GRE GRE XM&EVAL COMPRHNSV ESTAB PT 1/> IADNA 87490 PICKLESIM PICKLESIM CHLAMYDIA 4 ER JR SUMIT ER JR SUMIT TRACHOMAT IS AMPLIFIED PROBE TQ IADNA 95783 PICKLESIM PICKLESIM NEISSERIA 4 ER JR SUMIT ER JR SUMIT GONORRHOE AE AMPLIFIED PROBE TQ CYTP C/V 93072 PICKLESIM PICKLESIM AUTO THIN 4 ER JR SUMIT ER JR SUMIT LYR PREPJ SCR MNL RESCR PHYS ADMINISTR G0008 [facility] DOBSON ATION OF 4 [facility] INFLUENZA VIRUS VACCINE INFLUENZA Q2038 [facility] VACC 4 [facility] SPLIT VIRUS 3 YRS & > IM FLUZONE WRIST L3908 [facility] HAND 3 ORTHOSIS EXT CONTROL COCK-UP PREFAB RADEX 01995 GINGER GINGER HAND 3 ED[place] MIN[place] [address] [place] [address] GINGER GINGER ABDOMEN & 3 EDIS EDIS PELVIS [place] [address] [facility]ACIN[facility] ABDOMINAL 3 [facility] REAL [place] W/[place] [address] [place] TRANSVAGI 3 DANIKA [place]IK[place] PREG 81185 [facility] UTERUS 3 DANIKA DANIKA REAL TIME W/IMAGE DCMTN TRANSVAG URINE 23710 [facility] 3 DANIKA DANIKA TEST VISUAL COLOR CMPRSN METHS GONADOTRO 71921 [facility] PIN 3 [facility] CH[facility]IONIC INC INC QUANTITAT ROSS GONADOTRO 31809 [facility] PIN 3 [facility] INC INC QUANTITAT ROSS URINE 30105 [facility] 3 [facility] TEST INC INC VISUAL COLOR CMPRSN METHS URNLS DIP 20539 [facility] HYACINTH 3 [facility] STICK/TAB INC INC LET REAGENT AUTO MICROSCOP Y BLOOD 69117 [facility] COUNT 3 [facility] COMPLETE INC INC AUTO&AUTO [place]RNTL [place] PREG 26462 [facility] UTERUS 3 [facility] REAL TIME INC INC W/IMAGE DCMTN TRANSVAG COMPREHEN 53359 [facility] SIVE 3 [facility] METABOLIC INC INC PANEL CULTURE 67820 [facility]ACINTH RAM BACTERIAL 3 [facility] LIS INC QUANTTATI VE COLONY COUNT URINE COMPREHEN 94331 [facility] SIVE 3 [facility] METABOLIC INC INC PANEL HEMOGLOBI 63614 [facility] N 3 [facility] GLYCOSYLA INC INC ASUNCION A1C DETERMINA 29727 SHAUN RAO 3 GRE GRE REFRACTIV E STATE OPHTH 66423 SHAUN DUNN [facility] 3 GRE GRE XM&EVAL COMPRHNSV ESTAB PT 1/> URNLS DIP 76406 [facility] 3 [facility] STICK/TAB INC INC LET REAGENT AUTO MICROSCOP Y URINE 14444 [facility] 3 [facility] TEST INC INC VISUAL COLOR CMPRSN METHS URNLS DIP 67666 MARCO LARA 2 DANIKA DANIKA STICK/TAB LET RGNT NON-AUTO W/O MICRSCP CYTP C/V 12809 PICKLESIM PICKLESIM AUTO THIN 2 ER JR SUMIT ER JR SUMIT LYR PREPJ SCR MNL RESCR PHYS APPL 99850 [facility] MODALITY 2 [facility] 1/> AREAS INC INC ELEC STIMJ UNATTENDE D THERAPEUT 77729 HYACIN[facility] CL[facility]OS IC PX 1/> 2 [facility] AREAS INC INC EACH 15 MIN EXERCISES APPLICATI 38197 [facility] ON 2 [facility] MODALITY INC INC 1/> AREAS HOT/COLD PACKS APPLICATI 44056 [facility] ON 2 [facility] MODALITY INC INC 1/> AREAS HOT/COLD PACKS THERAPEUT 50292 HYACINTH CLAROS IC PX 1/> 2 [facility] AREAS INC INC EACH 15 MIN EXERCISES APPL 77832 [facility] MODALITY 2 [facility] 1/> AREAS INC INC ELEC STIMJ UNATTENDE D APPL 76050 [facility] MODALITY 2 [facility] 1/> AREAS INC INC ELEC STIMJ EA 15 MIN APPL 15792 [facility] MODALITY 2 [facility] 1/> AREAS INC INC ELEC STIMJ UNATTENDE D THERAPEUT 92250 HYACINTH CLAROS IC PX 1/> 2 [facility] AREAS INC INC EACH 15 MIN EXERCISES APPLICATI 79151 [facility] ON 2 [facility] MODALITY INC INC 1/> AREAS HOT/COLD PACKS GENERAL 90564 COMBINED COMBINED HEALTH 2 PHYSICIAN PHYSICIAN PANEL S LA S LA LIPID 56661 COMBINED COMBINED PANEL 2 PHYSICIAN PHYSICIAN S LA S LA SEDIMENTA 91294 COMBINED COMBINED TION RATE 2 PHYSICIAN PHYSICIAN [place] [address] COMBINED COMBINED THYROXINE 2 PHYSICIAN PHYSICIAN TOTAL S LA S LA THYROID 98821 COMBINED COMBINED HORM 2 PHYSICIAN PHYSICIAN UPTK/THYR S LA S LA OID HORMONE BINDING RATIO PHYSICAL 33618 HYACINTH HYACINTH THERAPY 2 [facility] EVALUATIO INC INC N 16897 [place] TRANSVAGI 2 DANIKA DANIKA NAL COLLECTIO 57249 [facility] VENOUS 2 [facility] VENIPUNCT URE GENERAL 89526 [facility] 2 [facility] NRV CNDJ 52735 GUILLEN ANTONINO GUILLEN ANTONINO AMPLITUDE 2 & LATENCY EACH NERVE SENSORY NRV D 70951 GUILLEN ANTONINO GUILLEN ANTONINO AMPLT&LAT 2 ENCY EA NRV MOTOR W/F-WAVE STD HEMOGLOBI 48762 [facility] 2 [facility] [place] [address] [facility] HOMOCYSTE 2 [facility] ORGANIC 99046 [facility] ACID 1 2 [facility] ROSS CYANOCOBA 00156 [facility] SCOOTER 2 [facility] B-12 REMOVAL 87764 [place]ARA NON-BIODE 2 DANIKA DANIKA GRADABLE DRUG DELIVERY IMPLANT NRV CNDJ 98609 JONES TRA JONES TRA AMPLITUDE 2 & LATENCY [place] N[place] [address] JONES TRA JONES TRA AMPLT&LAT 2 ENCY EA NRV MOTOR W/F-WAVE STD NEEDLE 96450 JONES TRA JONES TRA EMG EA 2 EXTREMTY W/PARASPI NL AREA COMPLETE MRI 44703 JONES TRA JONES TRA SPINAL 2 CANAL CERVICAL W/O CONTRAST MATRL RADEX 16157 JONES TRA JONES TRA SPINE 2 THORACIC 2 VIEWS RADEX 78304 JONES TRA JONES TRA SPINE 2 CERVICAL 2 OR 3 [place] [address] [facility] CLOSTRIDI 2 [facility] [place] [address] [facility] GIARDIA 2 [facility] INC INC OVA&THUAN 40374 HY[facility] ITES 2 [facility] DIRECT INC INC SMEARS CONCENTRA TION & ID CUL BACT 85545 [facility] STOOL 2 [facility] AEROBIC INC INC ISOL SALMONELL A&SHIGELL DRUG SCR G0434 [facility] NOT 2 CHROMATOG RAPHIC; [place] [address] [facility] AMYLASE 2 [facility] INC INC CUL 72030 [facility] PRSMPTV 2 [facility] PTHGNC INC INC ORGANISMS SCR DNS CHART SPECIAL 51847 PATHOLOGY WILFRID PAT STAIN 2 & GROUP 1 CYTOLOGY MICROORGA LAB NISMS I&R SPCL STN 94362 PATHOLOGY WILFR[place] PAT 2 I&R 2 & EXCPT CYTOLOGY MICROORG/ LAB ENZYME/[place] [address] PATHOLOGY [place] PAT SURG 2 & PATHOLOGY CYTOLOGY LAB GROSS&ANNA ROSCOPIC EXAM COMPREHEN 56088 [facility] SIVE 2 [facility] METABOLIC INC INC PANEL URINE 71806 HYACIN[facility] CL[facility]OS 2 [facility] TEST INC [place] [address] [facility] ABDOMEN & 2 MEDICAL EDIS PELVIS IMAGING W/O ASS CONTRAST MATERIAL COLONOSCO 27565 ADEOLA ANT ADEOLA ANT PY 2 W/BIOPSY SINGLE/MU LTIPLE COLSC FLX 34664 ADEOLA ANT ADEOLA ANT W/RMVL 2 [place] [address] [facility]IN[facility] INFUSION 2 [facility] THERAPY INC INC PROPHYLAX IS/DX EA HOUR ANES 96103 COMMUNITY MCDANIEL FIDE LOWER 2 ANESTH INTESTINE OF THE [place] [address] [facility] LIPASE 2 [facility] INC INC EGD 85677 ADEOLA ANT ADEOLA ANT TRANSORAL 2 BIOPSY SINGLE/[place] [address] HYACINTH HYACINTH INFUSION 2 [facility] THERAPY/P INC INC ROPHYLAXI S /DX 1ST TO 1 HR URNLS DIP 71395 HYACIN[facility] CLAROS 2 [facility] STICK/TAB INC INC LET REAGENT AUTO MICROSCOP Y BLOOD 88824 [facility]IN[facility] COUNT 2 [facility] COMPLETE INC INC AUTO&[place] [address] HY[facility]IN[facility] ABDOMEN & 2 [facility] PELVIS INC INC W/O CONTRAST MATERIAL URNLS DIP 52793 OAKES OAKES 2 LC LC STICK/TAB LET RGNT NON-AUTO W/O MICRSCP DRUG SCR G0434 [facility] ABDI NOT 1 CHROMATOG RAPHIC; ANY NUMBER PT ENC RADIOLOGI 65980 PAYAL MILES C EXAM 1 MEDICAL EDIS CHEST 2 IMAGING VIEWS ASS FRONTAL&L ATERAL PRESSURIZ 82064 HYACIN[facility] ED/NONPRE 1 [facility] SSURIZED INC INC INHALATIO N TREATMENT INJECTION 09563 [facility] BRAVO HAM 1 SINGLE/ML T TRIGGER POINT 3/> MUSCLES NJX 69351 [facility] DX/THER 1 SBST EPIDURAL/ SUBARACH LUMBAR/SA CRAL FLUOR 56914 [facility] NEEDLE/CA 1 TH SPINE/PAR ASPINAL DX/THER ADDON OPHTH 48196 [facility] 1 VISION ANG XM&EVAL COMPRE NEW PT 1/> VST MRI 24402 NEURODIAG TALANOW SPINAL 1 NOSTICPSC ROL CANAL LUMBAR W/O CONTRAST MATERIAL RADEX 92108 CENTRAL JARVIS SPINE 1 [place] LC LUMBOSACR ORTHOPAED AL 2/3 ICS PLC VIEWS PRESSURIZ 85571 HYACINTH CL[facility]OS ED/NONPRE 1 [facility] SSURIZED INC INC INHALATIO N TREATMENT US BREAST 15019 PAYAL MILES REAL 1 MEDICAL EDIS TIME IMAGING W/IMAGE ASS DOCUMENTA TION ANES 82035 COMMUNITY KAITLIN HYSTEROSC 1 ANESTH ADRIANA OPY&/HYST OF THE EROSALPIN BLUE GOGRAPHY W/BX HYSTEROSC 67229 HYACINTH CL[facility]OS OPY BX 1 [facility] ENDOMETRI INC INC UM&/POLYP C W/[place] D&[place] [address] CHIPPS KIRK ANNA SURG 1 KIAH & PATHOLOGY DUBILIER GROSS&ANNA ROSCOPIC EXAM HYSTEROSC 6812 HYACINTH GARCIAON OPY 1 [facility] INC INC OTHER 6909 HYACINTH CLAROS DILATION 1 [facility] [place] [address] HYACINTHSEFERINO GARCIAON INFUSION 1 [facility] THERAPY INC INC PROPHYLAX IS/DX EA HOUR BLOOD 33713 [facility]IN[facility] COUNT 1 [facility] COMPLETE INC INC AUTO&AUTO DIFRNTL WBC GONADOTRO 74844 HYACINTH [facility] PIN 1 [facility] [place] [address] [facility] TRANSVAGI 1 HEALTH DANIKA NAL [facility] IADNA 66164 PATHOLOGY PATHOLOGY NEISSERIA 0 & & CYTOLOGY CYTOLOGY GONORRHOE LAB LAB AE AMPLIFIED PROBE TQ CYTP C/V 06673 PATHOLOGY PATHOLOGY AUTO THIN 0 & & LYR CYTOLOGY CYTOLOGY PREPJ SCR LAB LAB MNL RESCR PHYS IADNA 90847 PATHOLOGY PATHOLOGY CHLAMYDIA 0 & & CYTOLOGY CYTOLOGY TRACHOMAT LAB LAB IS AMPLIFIED PROBE TQ INSERTION 93809 [facility] 0 [facility]ALTH DNAIKA IMPLANTAB [facility]IN[facility] [place] CONTRACEP TIVE CAPSULES ETONOGEST J7307 [facility] REL 0 HEALTH DANIKA CNTRACPT CLINIC OF IMPL SYS [place] INCL IMPL & SPL URINE 58151 [facility] 0 HEALTH DANIKA TEST CLINIC OF VISUAL [place] COLOR CMPRSN METHS URINE 15884 HYACINTH CLAROS 0 [facility] TEST INC INC VISUAL COLOR CMPRSN METHS RADIOLOGI 98351 Imer MONTAGUE EXAM 0 MEDICAL RANI P CHEST 2 IMAGING VIEWS ASSOCIATE FRONTAL&L S ATERAL URINE 99433 [facility], 9 [facility]ALTH TASHA J TEST CLINIC OF VISUAL COLOR [place] CMPRSN PLLC METHS LEVONORGE J7302 [facility], STREL-RLS 9 [facility] OF INTRAUTER N [place] CNTRACPT PLLC 52 MG INSERTION 92108 [facility], 9 [facility] J INTRAUTER CLINIC OF INE DEVICE [place] IUD PLLC COMPREHEN 97258 [facility]ACIN[facility] SIVE 9 [facility] METABOLIC INC INC PANEL CYTP C/V 56844 PATHOLOGY PATHOLOGY AUTO THIN 9 & & LYR CYTOLOGY CYTOLOGY PREPJ SCR LAB LAB MNL RESCR PHYS BLOOD 49115 [facility]IN[facility] COUNT 9 [facility] COMPLETE INC INC AUTO&AUTO DIFRNTL [facility] 82492 [facility] NIKITA, DISCHARGE 9 CARE R [facility] MANAGEMEN S T 30 MIN/< CIRCUMCIS 72805 [facility] 9 CARE [facility] W/CLAMP/O [facility] DEV S W/BLOCK SUBQ [address] CARE PER ASSOCIATE DAY E/M S NORMAL SUBQ 76892 [place] [address] CARE R [place] CARE PER ASSOCIATE DAY E/M S NORMAL 46321 KING DYEL, DELIVERY 9 ARETHA Andrade ONLY ANESTHESI 04969 [facility] 9 ANESTH LESLEY F OF THE DELIVERY [place] ONLY 54208 [facility], DELIVERY 9 [facility] ONLY CLINIC OF W/POSTPAR IVAN CARE [place] PLLC LOW 741 HYACINTH CL[facility]OS CERVICAL 9 [facility] INC INC SECTION 1ST 80874 [facility] NIKITA, HOSP/JIMBO 9 [facility] S CARE PER DAY NML NB DOPPLER 83602 [facility] VELOCIMET 9 [facility] OF UMBILICAL ARTERY [place] [facility] 66821 [facility], BIOPHYSIC 9 [facility] AL [facility]INIC OF PROFILE W/[place] [address] [facility], 9 [facility] J UTERUS CLINIC OF LIMITED 1/> [place] FETUSES PLLC DOPPLER 10235 [facility], VELOCIMET 9 [facility] J RY CLINIC OF UMBILICAL ARTERY [place] PLLC 66346 [facility], BIOPHYSIC 9 [facility] J AL CLINIC OF PROFILE W/O [place] P[place] 91427 [facility], UTERUS 9 [facility] J REAL TIME CLINIC OF F/U TRNSABDL [place] PER FETUS PLLC 27660 [facility], BIOPHYSIC 9 [facility] J AL CLINIC OF PROFILE W/O [place] NON-STRES [facility] S TESTING DOPPLER 44450 [facility], VELOCIMET 9 [facility]ALTH [facility] J RY CLINIC OF UMBILICAL ARTERY [place] [facility] [address] [facility], 9 [facility] J UTERUS CLINIC OF LIMITED 1/> [place] FETUSES PLLC BASIC 25647 [facility] METABOLIC 9 [facility] PANEL INC INC CALCIUM TOTAL THROMBOPL 44810 [facility] ASTIN 9 [facility] TIME INC INC PARTIAL PLASMA/WH OLE BLOOD TRANSFERA 06092 [facility] SE 9 [facility] ASPARTATE INC INC AMINO AST SGOT TRANSFERA 45279 [facility] SE 9 [facility] ALANINE INC INC AMINO ALT SGPT DOPPLER 79619 [facility], VELOCIMET 9 [facility] J RY [facility] OF UMBILICAL ARTERY [place] PLLC 22062 [facility], BIOPHYSIC 9 [facility] J AL CLINIC OF PROFILE W/O [place] NON-STRES PLLC [place] P[place] 36483 [facility], UTERUS 9 [facility] J REAL TIME CLINIC OF F/U TRNSABDL [place] PER FETUS PLL FIBRINOGE 42221 [facility]IN[facility] N 9 [facility] ACTIVITY INC INC PROTHROMB 70122 HYACINTH CLAROS IN TIME 9 [place] [address] HYACINTH CLAROS BLOOD/URI 9 [facility] C ACID INC INC FIBRIN 91984 HY[facility] DGRADJ 9 [facility] PRODUCTS INC INC D-DIMER QUAL/SEMI LACI BLOOD 43926 [facility]IN[facility] COUNT 9 [facility] COMPLETE INC INC AUTO&AUTO DIFRNTL WBC URNLS DIP 08695 HYACINTH CLAROS 9 [facility] STICK/TAB INC INC LET REAGENT AUTO MICROSCOP Y OBSERVATI 30372 KING CARIAS, ON/INPATI 9 ARETHA Andrade [facility] 55 MINUTES 15846 HY[facility] NONSTRESS 9 [facility] [place] [address] [facility], UTERUS 9 HEALTH TASHA J REAL TIME CLINIC OF F/U TRNSABDL [place] PER FETUS [facility] [address] [facility], BIOPHYSIC 9 [facility]ALTH [facility] J AL CLINIC OF PROFILE W/O [place] NON-STRES [facility] S TESTING DOPPLER 34239 [facility], VELOCIMET 9 [facility]ALTH [facility] J RY CLINIC OF UMBILICAL ARTERY [place] [facility] BLD GLU A4253 [facility] TEST/REAG 9 PHARMACY PHARMACY T STRIPS #591 #591 HOME BLD GLU MON-50 90478 [facility], BIOPHYSIC 9 [facility] J AL CLINIC OF PROFILE W/O [place] NON-STRES [facility] S TESTING DOPPLER 48813 [facility], VELOCIMET 9 [facility] J RY CLINIC OF UMBILICAL ARTERY [place] [facility] [place] PREG 27252 [facility], UTERUS 9 [facility]ALTH [facility]HA J REAL TIME CLINIC OF F/U TRNSABDL [place] PER FETUS [facility] CUL BACT 43642 COMBINED COMBINED XCPT 9 PHYSICIAN PHYSICIAN URINE S LAB S LAB BLOOD/STO OL [place]EROBIC ISOL [place] PREG 14499 [facility], UTERUS 9 [facility]ALTH T[facility]HA J REAL TIME CLINIC OF F/U TRNSABDL [place] PER FETUS [facility] DOPPLER 41514 [facility], VELOCIMET 9 [facility] J RY CLINIC OF UMBILICAL ARTERY [place] [facility] 70544 [facility] [place], BIOPHYSIC 9 [facility]ALTH T[facility]HA J AL CLINIC OF PROFILE W/O [place] NON-STRES [facility] [place] PREG 39316 CENTRAL CENTRAL UTERUS 9 JAINISM JAINISM REAL TIME HOSP HOSP F/U TRNSABDL PER FETUS ANTIBODY 45847 COMBINED COMBINED CHLAMYDIA 9 PHYSICIAN PHYSICIAN S LAB S LAB CUL BACT 05881 COMBINED COMBINED XCPT 9 PHYSICIAN PHYSICIAN URINE S LAB S LAB BLOOD/STO OL AEROBIC ISOL [place] PREG 88898 CENTRAL CENTRAL UTERUS 9 JAINISM JAINISM REAL TIME HOSP HOSP F/U TRNSABDL PER FETUS RADIOLOGI 13568 Imer MONTAGUE 9 MEDICAL RANI Pierson EXAMINATI IMAGING ON CHEST ASSOCIATE SINGLE S VIEW FRONTAL 21278 [facility], NONSTRESS 9 HEALTH T[facility]HA J TEST CLINIC OF [place] [facility] 42996 [facility], NONSTRESS 9 [facility]ALTH T[facility]HA J TEST CLINIC OF HÉCTOR [facility] URNLS DIP 82053 HYACINTH CLAROS 9 [facility] STICK/TAB INC INC LET REAGENT AUTO MICROSCOP [place] P[place] 71810 CENTRAL CENTRAL UTERUS 9 JAINISM JAINISM REAL TIME HOSP HOSP F/U TRNSABDL PER FETUS BLD GLU A4253 [facility] TEST/REAG 8 PHARMACY PHARMACY T STRIPS #591 #591 HOME BLD GLU MON-50 [place] PREG 05735 CENTRAL CENTRAL UTERUS 8 JAINISM JAINISM W/DETAIL HOSP HOSP ANISH 1ST GESTATION DIAB G0109 CENTRAL CENTRAL SELF-MGMT 8 JAINISM JAINISM TRN [facility] HOSP GROUP SESSION PER 30 MIN ALPHA-FET 09844 [facility]ONE OF OPROTEIN 8 gamigo INC gamigo INC SERUM URNLS DIP 01204 DHS/CO HYACINTH 8 HEALTH CO HEALTH STICK/TAB CENTRAL CENTER LET RGNT BANK ACCT NON-AUTO W/O MICRSCP GONADOTRO 36615 [facility] OF PIN 8 [facility] [place] [address] [facility] ESTRIOL 8 [facility] GLUC BLD 53954 [facility]/AL HYACINTH GLUC MNTR 8 [facility] DEV CENTRAL CENTER CLEARED BANK ACCT FDA SPEC HOME USE URNLS DIP 87914 DHS/CO HYACINTH [address] [place] [address] HEALTH STICK/TAB CENTRAL CENTER LET RGNT BANK ACCT NON-AUTO W/O MICRSCP CYTP 47784 [facility]/CO HYACINTH CERV/VAG [address] [place] [address] AUTO THIN [facility] LAYER BANK ACCT PREP MNL SCREEN BLOOD 49074 [facility] TYPING 8 [facility] SEROLOGIC RH (D) ANTIBODY 03780 [facility] OF SCREEN [address] [place] [address] RBC EACH SERUM TECHNIQUE BLOOD 14941 [facility] TYPING 8 [facility] SEROLOGIC ABO IADNA 92005 [facility]/CO HYACINTH NEISSERIA [address] [place] [address] GONORRHOE BANK ACCT AE AMPLIFIED PROBE TQ SYPHILIS 30676 [facility]/CO HYACINTH TEST [address] [place] [address] NON-TREPO [facility] NEMAL BANK ACCT ANTIBODY QUAL COLLECTIO 18652 DHS/CO HYACINTH N VENOUS [address] [place] [address] BLOOD [facility] VENIPUNCT BANK ACCT URE ANTIBODY 19441 DHS/CO HYACINTH RUBELLA [address] [place] [address] [place] [address] DHS/CO HYACINTH HEPATITIS [address] [place] [address] B [facility] SURFACE BANK ACCT ANTIGEN IADNA 83010 [facility]/PHELPS HEALTH CHLAMYDIA [address] [place] [address] TRACHOMAT BANK ACCT IS AMPLIFIED PROBE TQ CULTURE 09323 HY[facility]INTH CL[facility]OS BACTERIAL 8 [facility] INC INC QUANTTATI [place] [address] [place] UZIEL, UTERUS 8 MEDICAL RANI P REAL TIME IMAGING W/IMAGE ASSOCIATE DCMTN S TRANSVAG URNLS DIP 46824 HYACINTH CLAROS 8 [facility] STICK/TAB INC INC LET REAGENT AUTO MICROSCOP Y BLOOD 51125 HY[facility] COUNT 8 [facility] COMPLETE INC INC AUTO&AUTO DIFRNTL WBC GONADOTRO 71577 HYACINTH CLAROS PIN 8 [facility]OS[facility] CHORION[place] [address] HYACINTH CLAROS LIPASE 8 [facility] INC INC URINE 22569 HYACINTH CLAROS 8 [facility] TEST INC INC VISUAL COLOR CMPRSN METHS BLOOD 57362 HYACINTH CL[facility]OS COUNT 8 [facility] COMPLETE INC INC AUTO&AUTO DIFRNTL WBC URNLS DIP 03603 HYACINTH CLAROS 8 [facility] STICK/TAB INC INC LET REAGENT AUTO MICROSCOP Y [place] PREG 60991 HYACINTH CLAROS UTERUS 8 [facility] REAL TIME INC INC W/IMAGE DCMTN TRANSVAG COMPREHEN 25553 HY[facility]IN[facility] CL[facility]OS SIVE 8 [facility] METABOLIC INC INC PANEL CULTURE 51500 [facility] BACTERIAL 8 [facility] INC INC [place]TTAT[place] [address] HY[facility]INTH CL[facility]OS AMYLASE 8 [facility] INC INC Encounters Encounter Start End Date Code Location Performer Type Date OFFICE 70102 [facility] CO[facility] OUTPATIEN 7 7 [facility]ABETIC T [facility]IS[facility]ENTER, 25 P MINUTES OFFICE 92139 TRESA GARAY OUTPATIEN 7 7 Viviane CALLE MD,PSC MINUTES OFFICE 29546 Zena WATSON OUTPATIEN 7 7 PHYSICIAN T VISIT GROUP 15 MINUTES OFFICE [address] [facility] SHIRLEY OUTPATIEN 7 7 PHYSICIAN T VISIT GROUP 15 MINUTES OFFICE 87110 [facility] COBIAN OUTPATIEN 7 7 DIABETIC T VISIT CENTER, 25 P MINUTES OFFICE 83192 JAQUELIN VILLEGAS OUTPATIEN 7 7 N FAMILY T VISIT CHIROPRAC 10 T MINUTES OFFICE 98590 [facility] AMJAD OUTPATIEN 6 6 DIABETIC T VISIT CENTER, 15 P MINUTES HOSPITAL HYACINTH - 6 6 [facility] OUTPATIEN INC T OFFICE [address] [facility] JEANINE OUTPATIEN 6 6 PHYSICIAN T VISIT S GROUP 25 MINUTES OFFICE 96183 [facility] AMSTUARTD OUTPATIEN 6 6 DIABETIC T VISIT CENTER, 25 P MINUTES OFFICE 90684 OLYA OLYA OUTPATIEN 6 6 [facility] 15 MINUTES HOSPITAL HYACINTH - 6 6 [facility] OUTPATIEN INC T OFFICE 84540 [place] AMJAD SOB OUTPATIEN 6 6 DIABETIC T VISIT CENTER, 25 P MINUTES OFFICE 64945 MATEO AMJAD SOB OUTPATIEN 6 6 DIABETIC T VISIT 5 CENTER, MINUTES P OFFICE 72282 JAQUELIN VILLEGAS OUTPATIEN 6 6 N FAMILY RANDY T VISIT CHIROPRAC 10 T MINUTES OFFICE 48570 OLYA DOBSON OUTPATIEN 6 6 [facility] T VISIT 15 MINUTES OFFICE [address] [facility] LARA OUTPATIEN 6 6 PHYSICIAN DANIKA T VISIT S GROUP 15 MINUTES OFFICE 45093 OLYA DOBSON OUTPATIEN 6 6 [facility] T VISIT 15 MINUTES OFFICE 88428 MATEO MUHAMMADD SOB OUTPATIEN 6 6 DIABETIC T VISIT CENTER, 15 P MINUTES EMERGENCY 75581 JUSTINA SANCHEZ 5 5 PHYSICIAN DEPARTMEN S, PLLC T VISIT HIGH/URGE NT SEVERITY OFFICE 08631 OLYA PAL 5 5 [facility] T VISIT 15 MINUTES OFFICE 54994 JAQUELIN VILLEGAS OUTPATIEN 5 5 N FAMILY RANDY T VISIT CHIROPRAC 10 T MINUTES OFFICE 38947 [place] [facility]JAD [facility] OUTPATIEN 5 5 DIABETIC T VISIT CENTER, 25 P MINUTES OFFICE [address] [facility] LARA OUTPATIEN 5 5 PHYSICIAN DANIKA T VISIT S GROUP 15 MINUTES EMERGENCY 98132 JUSTINA TELLEZ 5 5 PHYSICIAN DEPARTMEN S, PLLC T VISIT MODERATE SEVERITY EMERGENCY 90429 [facility] 5 5 [facility] DEPARTMEN [facility] T VISIT LIMITED/M INOR PROB HOSPITAL HYACINTH - 5 5 [facility] OUTPATIEN [facility] T HOSPITAL HYACINTH - 5 5 [facility] OUTPATIEN [facility] T HOSPITAL HYACINTH - 5 5 [facility] OUTPATIEN [facility] HOSPITAL HYACINTH [facility] 5 5 [facility] OUTPATIEN [facility] T EMERGENCY 28489 JUSTINA SOLORZANO 5 5 PHYSICIAN ANNA DEPARTMEN S, [facility] T VISIT HIGH/URGE NT SEVERITY EMERGENCY 23015 HYACINTH 5 5 [facility] T VISIT MODERATE SEVERITY HOSPITAL HYACINTH - 5 5 [facility] OUTPATIEN [facility] HOSPITAL HYACINTH - 5 5 [facility] OUTPATIEN [facility] T OFFICE 28738 MATEO HAZELSWEETIE OUTPATIEN 5 5 FOOT & N SHABNAM T VISIT ANKLE CE 15 MINUTES OFFICE 36278 OLYA DOBSON OUTPATIEN 5 5 [facility] T VISIT 15 MINUTES OFFICE 71208 MATEO REESEMARJORIE OUTPATIEN 5 5 DIABETIC R TAR T VISIT CENTER 25 MINUTES EMERGENCY 57447 JUSTINA SOLORZANO 5 5 PHYSICIAN ANNA DEPARTMEN S, [facility] T VISIT MODERATE SEVERITY OFFICE [address] [facility] MIKAYLA OUTPATIEN 5 5 PHYSICIAN CAM T VISIT S GROUP 10 MINUTES HOSPITAL HYACINTH - 5 5 [facility] T OFFICE [address] [facility] OJEDA OUTPATIEN 5 5 PHYSICIAN MARGOTH T VISIT S GROUP 15 MINUTES OFFICE [address] [facility] SCHULSTAD OUTPATIEN 5 5 PHYSICIAN CAM T VISIT S GROUP 15 MINUTES EMERGENCY 92091 JUSTINA SOLORZANO 5 5 PHYSICIAN ANNA DEPARTMEN S, PLLC T VISIT HIGH/URGE NT SEVERITY OFFICE [address] [facility] OJEDA OUTPATIEN 5 5 PHYSICIAN MARGOTH T VISIT S GROUP 15 MINUTES OFFICE [address] [facility] OJEDA OUTPATIEN 5 5 PHYSICIAN MARGOTH T NEW 20 S GROUP MINUTES HOSPITAL HYACINTH - 5 5 [facility] OUTPATIEN INC T EMERGENCY 39407 JUSTINA ULLOA 5 5 PHYSICIAN LINARES DEPARTMEN S, PLLC T VISIT HIGH/URGE NT SEVERITY HOSPITAL HYACINTH - 5 5 [facility] OUTPATIEN INC T OFFICE 11428 OLYA DOBSON OUTPATIEN 5 5 [facility] T VISIT 15 MINUTES OFFICE 17687 MATEO WOLF OUTPATIEN 5 5 DIABETIC T VISIT CENTER, 25 P MINUTES OFFICE 412[address] [facility] YMAN OUTPATIEN 5 5 PHYSICIAN EUG T VISIT S GROUP 10 MINUTES OFFICE [address] [facility] JEANINE OUTPATIEN 5 5 PHYSICIAN ANNA T VISIT S GROUP 15 MINUTES OFFICE 69320 [facility] PAIZ OUTPATIEN 5 5 [facility] ANNA T VISIT HOSPITAL 15 MINUTES OFFICE 19714 MATEO WOLF OUTPATIEN 5 5 DIABETIC T VISIT CENTER [address]ES [address] PEDROZA OUTPATIEN 5 5 DANIEL Leon SHABNAM T VISIT MIRTA 15 DPM PSC MINUTES OFFICE 94129 OLYA DOBSON OUTPATIEN 5 5 [facility] T VISIT 15 MINUTES HOSPITAL HYACINTH - 5 5 [facility] OUTPATIEN INC T HOSPITAL CENTRAL - 5 5 JAINISM OUTPATIEN HOSP T OFFICE 08246 JAINISM [facility] OUTPATIEN 5 5 HEALTH AYAD T VISIT MEDICAL 40 GROUP MINUTES OFFICE 13547 JAQUELIN VILLEGAS OUTPATIEN 5 5 N FAMILY RANDY T VISIT CHIROPRAC 10 T MINUTES OFFICE [address] [facility] LARA OUTPATIEN 4 4 PHYSICIAN DANIKA T VISIT S GROUP 15 MINUTES OFFICE 66777 OLYA DOBSON OUTPATIEN 4 4 [facility] T VISIT 15 MINUTES OFFICE 30459 [facility] OUTPATIEN 4 4 [place] T VISIT ORTHOPAED 15 [facility] MINUTES OFFICE 67573 [facility] CONSULTAT 4 4 NEUROLOGY AYAD ION NEW/ESTAB CONSULTAN PATIENT T 60 MIN OFFICE [address]92[address] [facility] OUTPATIEN 4 4 PHYSICIAN T VISIT S GROUP 25 MINUTES OFFICE 01378 OLYA DOBSON OUTPATIEN 4 4 [facility] 15 MINUTES OFFICE 88360 [facility] TRA OUTPATIEN 4 4 [place] [facility] V[facility]ED [facility] MINUTES OFFICE 75643 OLYA DOBSON OUTPATIEN 4 4 [facility] T VISIT 15 MINUTES EMERGENCY 98926 [facility] 4 4 [facility] EMERGENCY T VISIT PHYS HIGH/URGE NT SEVERITY OFFICE 87326 [place] RICHARDSO OUTPATIEN 4 4 FOOT & N SHABNAM T VISIT ANKLE CE 15 MINUTES OFFICE 14133 JONES TRA JONES TRA OUTPATIEN 4 4 T VISIT 15 MINUTES OFFICE 70479 [place] RICHARDSO OUTPATIEN 4 4 FOOT & N SHABNAM T NEW 30 ANKLE CE MINUTES OFFICE 29354 OLYA DOBSON OUTPATIEN 4 4 [facility] T VISIT 15 MINUTES OFFICE 42624 BAKARI VILLEGAS OUTPATIEN 4 4 RANDY RANDY T VISIT 10 MINUTES EMERGENCY 72732 JEANINE SOLORZANO 4 4 ANNA ANNA DEPARTMEN T VISIT HIGH/URGE NT SEVERITY OFFICE 79994 OLYA DOBSON OUTGEOVANNAEN 4 4 [facility] T VISIT 15 MINUTES OFFICE 04945 BAKARI VILLEGAS OUTPATIEN 4 4 RANDY RANDY T VISIT 10 MINUTES OFFICE 20203 BAKARI VILLEGAS OUTPATIEN 4 4 RANDY RANDY T VISIT 10 MINUTES HOSPITAL [facility] - 4 4 [facility] T OFFICE 86828 [place] [facility] OUTPATIEN 4 4 DANIKA DANIKA T VISIT 15 MINUTES OFFICE 64306 BAKARI PAL 4 4 RANDY RANDY T NEW 30 MINUTES OFFICE 26417 OLYA PAL 4 4 [facility] T VISIT 15 MINUTES OFFICE 94268 OLYA PAL 4 4 [facility] T VISIT 15 MINUTES OFFICE 09634 OLYA PAL 4 4 [facility] T VISIT 15 MINUTES PERIODIC 84326 [facility] PREVENTIV 4 4 DANIKA DANIKA E MED EST PATIENT 18-39 YRS OFFICE 75624 OLYA PAL 3 3 [facility] T VISIT 15 MINUTES EMERGENCY 30069 PARISH NESBITT 3 3 DEPARTMEN T VISIT MODERATE SEVERITY OFFICE 16758 ADEOLA VILLALTA ADEOLA AMBAR OUTPATIEN 3 3 T VISIT 15 MINUTES OFFICE 85113 OLYA PAL 3 3 [facility] T VISIT 15 MINUTES EMERGENCY 27029 JEANINE SOLORZANO 3 3 ANNA ANNA DEPARTMEN T VISIT HIGH/URGE NT SEVERITY [facility] - 3 3 [facility] T OFFICE 22499 ADEOLA MCCANNCH ANT OUTPATIEN 3 3 T VISIT 25 MINUTES OFFICE 10314 WILMER MUÑIZ OUTPATIEN 3 3 T VISIT 25 MINUTES [facility]OSPITAL [facility] - 3 3 [facility] T EMERGENCY 51984 [facility] 3 3 [facility] DEPARTMEN INC T VISIT MODERATE SEVERITY [facility] - 3 3 [facility] T EMERGENCY 42934 LUZ ESCOBAR DEPT 3 3 III FIDE III FIDE VISIT HIGH SEVERITY& THREAT [facility] OFFICE 14263 OLYA PAL 3 3 [facility] T VISIT 15 MINUTES OFFICE 15082 OLYA PAL 3 3 [facility] T VISIT 15 MINUTES OFFICE 77535 WILMER MUÑIZ OUTPATIEN 3 3 T VISIT 15 MINUTES HOSPITAL [facility] - 3 3 [facility] T OFFICE 27230 ADEOLA MIR ANT OUTPATIEN 3 3 T VISIT 25 MINUTES EMERGENCY 87803 SHAUN RASHID DEPT 3 3 EMERGENCY FIDE VISIT SERVICES HIGH SEVERITY& THREAT [facility] HYACINTH - 3 3 [facility] OUTPATIEN INC T EMERGENCY 68322 [facility]IN[facility] 3 3 [facility] DEPARTMEN INC T VISIT LOW/MODER SEVERITY OFFICE 88898 GUILLENENS ANTONINO MUÑIZ OUTPATIEN 2 2 T VISIT 15 MINUTES OFFICE 60717 OLYA PAL 2 2 [facility] T VISIT 15 MINUTES OFFICE 75128 OLYA PAL 2 2 [facility] T VISIT 15 MINUTES OFFICE 15233 ADEOLA ANT ADEOLA ANT OUTPATIEN 2 2 T VISIT 15 MINUTES [facility] 48126 [place] L[place] PREVENTIV 2 2 DANIKA DANIKA E MED EST PATIENT 18-39 YRS OFFICE 88286 [facility] OUTPATIEN 2 2 LTH SLEEP T VISIT AND REHA 10 MINUTES [facility] HYACINTH - 2 2 [facility] OUTPATIEN INC T OFFICE 95424 OLYA DOBSON OUTPATIEN 2 2 [facility] T VISIT 15 MINUTES OFFICE 92599 WILMER GUILLEN ANTONINO OUTPATIEN 2 2 T VISIT 25 MINUTES OFFICE 33020 [place] OUTPATIEN 2 2 DANIKA DANIKA T VISIT 15 MINUTES [facility] HYACINTH - 2 2 [facility] OUTPATIEN [facility] T OFFICE 01389 OLYA DOBSON OUTPATIEN 2 2 [facility] T VISIT 15 MINUTES OFFICE 84688 [facility] HILARIO II OUTPATIEN 2 2 [facility] SLEEP VINCENT T NEW 30 AND REHA MINUTES OFFICE 34169 OLYA DOBSON OUTPATIEN 2 2 [facility] T VISIT 15 MINUTES OFFICE 69694 [place] OUTPATIEN 2 2 DANIKA DANIKA T VISIT 25 MINUTES HOSPITAL [facility] - 2 2 [facility] T OFFICE 53631 WILMER GUILLEN ANTONINO OUTPATIEN 2 2 T NEW 45 MINUTES OFFICE 84403 ADEOLA ANT ADEOLA ANT OUTPATIEN 2 2 T VISIT 25 MINUTES OFFICE 26655 WHANG LANI WHANG LANI CONSULTAT 2 2 ION NEW/ESTAB PATIENT 40 MIN OFFICE 31252 WHANG LANI WHANG LANI OUTPATIEN 2 2 T NEW 30 MINUTES OFFICE 91729 JONES TRA JONES TRA OUTPATIEN 2 2 T VISIT 15 MINUTES OFFICE 37625 JONES TRA JONES TRA OUTPATIEN 2 2 T VISIT 10 MINUTES OFFICE 40534 JONES TRA JONES TRA OUTPATIEN 2 2 T VISIT 15 MINUTES OFFICE 45170 OLYA DOWLINGOLD OUTPATIEN 2 2 [facility] T [facility]ES [facility] - 2 2 [facility] INC T OFFICE 75341 ADEOLA ANT ADEOLA ANT OUTPATIEN 2 2 T VISIT 25 MINUTES OFFICE 31431 [facility]WRENCE HAM [facility] OUTPATIEN 2 2 T VISIT 15 MINUTES OFFICE 45675 LAWRENCEKURT DIAZIK HAM OUTPATIEN 2 2 T VISIT 15 MINUTES EMERGENCY 70388 SHAUN HOLLAND DEPT 2 2 EMERGENCY VISIT SERVICES HIGH SEVERITY& THREAT FUN EMERGENCY 28606 [facility]ACINTH 2 2 [facility] DEPARTMEN INC T VISIT MODERATE SEVERITY HOSPITAL HYACITNH - 2 2 [facility] OUTPATIEN INC T OFFICE 05474 ADEOLA ANT ADEOLA ANT OUTPATIEN 2 2 T NEW 45 MINUTES OFFICE 60883 JEANINE JEANINE OUTPATIEN 2 2 ANNA ANNA T NEW 20 MINUTES OFFICE 92400 LAWRENCEKURT BRAVO HAM OUTPATIEN 2 2 T VISIT 15 MINUTES HOSPITAL [facility] - 2 2 [facility] T OFFICE 10794 [facility] OUTPATIEN 2 2 [facility] T NEW 10 HOSPITAL MINUTES P OFFICE 11724 NITESHVICKEY NITESHVICKEY OUTPATIEN 1 1 [facility] T VISIT 15 MINUTES OFFICE 73104 [facility] OUTPATIEN 1 1 T VISIT 15 MINUTES OFFICE 81752 [facility] OUTPATIEN 1 1 T VISIT 15 MINUTES EMERGENCY 54611 LIANG MARGOTH LIANG MARGOTH 1 1 DEPARTMEN T VISIT HIGH/URGE NT SEVERITY [facility]OSPITAL [facility] - 1 1 [facility] OUTPATIEN INC T EMERGENCY 42813 [facility]ACIN[facility] 1 1 [facility] DEPARTMEN INC T VISIT MODERATE SEVERITY OFFICE 36197 [facility] OUTPATIEN 1 1 T VISIT 15 MINUTES OFFICE 24118 [facility]WR[facility] OUTPATIEN 1 1 T VISIT 15 MINUTES OFFICE 68722 [facility]WR[facility]AM [facility] OUTPATIEN 1 1 T VISIT 15 MINUTES OFFICE 82440 [facility] OUTPATIEN 1 1 T VISIT 15 MINUTES OFFICE 22889 NITESHVICKEY DOBSON OUTPATIEN 1 1 [facility] T VISIT 15 MINUTES OFFICE 21093 [facility] JARVIS OUTPATIEN 1 1 [place] [facility] T VISIT ORTHOPAED 15 [facility] MINUTES OFFICE 11227 [facility] JARVIS CONSULTAT 1 1 [place] ION ORTHOPAED NEW/ESTAB [facility] PATIENT 40 MIN HOSPITAL [facility] - 1 1 [facility] OUTPATIEN INC T EMERGENCY 28565 HYACINTH 1 1 [facility] MODERATE SEVERITY EMERGENCY 97645 SHAUN PEREYRA 1 1 EMERGENCY [facility] SERVICES T VISIT HIGH/URGE NT SEVERITY HOSPITAL HYACINTH - 1 1 [facility] OUTPATIEN INC T OFFICE 54565 [facility] L[facility] 1 1 HEALTH DANIKA T VISIT CLINIC OF 15 ROLAND MINUTES EMERGENCY [address] LOW/MODER SEVERITY EMERGENCY 00217 SHAUN ESCOBAR 1 1 EMERGENCY III [facility] DEPARTMEN SERVICES T VISIT HIGH/URGE NT SEVERITY HOSPITAL HYACIN[facility] - 1 1 [facility] OUTPATIEN [facility] OFFICE 01967 [facility] OUTPAT[facility] 1 1 HEALTH DANIKA T VISIT CLINIC OF 15 ROLAND MINUTES HOSPITAL HYACINTH [facility] 1 1 [facility]EN [facility] 1 1 [facility] OUTPATIEN [facility] T OFFICE 79861 OLYA DOBSON OUTPATIEN 1 1 [facility] T NEW 30 MINUTES OFFICE 74149 [facility] OUTPATI[facility] 1 1 HEALTH DANIKA T VISIT CLINIC OF 15 ROLAND MINUTES [facility] 98599 [facility] L[facility] PREVENTIV 0 0 HEALTH DANIKA E MED EST CLINIC OF PATIENT ROLAND 18-39 YRS EMERGENCY 26193 SHAUN ESCOBAR 0 0 EMERGENCY III, [facility] SERVICES [facility] T VISIT HIGH/URGE ASSOCIATE NT S SEVERITY EMERGENCY 52338 HYACINTH 0 0 [facility] T VISIT LOW/MODER SEVERITY HOSPITAL HYACINTH - 0 0 [facility] 63924 [facility], OUTPATIEN 9 9 HEALTH TASHA J T VISIT CLINIC OF 15 MINUTES [facility] EMERGENCY 21338 SHAUN HERNANDEZ, 9 9 EMERGENCY [facility] SERVICES T VISIT HIGH/URGE ASSOCIATE NT S SEVERITY EMERGENCY 73342 [facility]ACIN[facility] 9 9 [facility] T VISIT LIMITED/M [facility] HYACINTH - 9 9 [facility] HYACINTH [facility] 9 9 [facility] T OFFICE 29275 [facility] OUTPATIEN 9 9 HEALTH TASHA J T VISIT CLINIC OF 25 MINUTES [facility] OFFICE 06129 [facility], OUTPATIEN 9 9 HEALTH [facility]HA J T VISIT CLINIC OF 15 MINUTES [facility] HYACINTH - 9 9 [facility] INPATIENT [facility] HYACINTH [facility] 9 9 [facility] OUT[facility]EN [facility] 9 9 [facility] OUTPATIEN [facility] HOSPITAL CENTRAL - 9 9 [facility] T OFFICE 59218 [facility] OUTPATIEN 9 9 [facility]ALTH [facility] J T VISIT CLINIC OF 15 MINUTES [facility] OFFICE 01776 [facility], OUTPATIEN 9 9 [facility] J T VISIT CLINIC OF 15 MINUTES [facility] OFFICE 55559 JORDON DSOUZA 9 9 SHANELLE ION DIAGNOSTI A NEW/ESTAB CCENTER PATIENT 15 MIN [facility] CENTRAL - 9 9 [facility] T OFFICE 14779 [facility]QUIN[facility] OUTPATIEN 9 9 Kaylie DOMINGUEZ JR, Kaylie Mariscal T VISIT 15 MINUTES [facility] HYACINTH - 9 9 [facility] 69121 HYACINTH 9 9 [facility] VISIT MODERATE SEVERITY OFFICE 26049 [facility], OUTPATIEN 9 9 HEALTH T[facility]HA J T VISIT CLINIC OF 15 MINUTES [facility] HYACINTH - 9 9 [facility] 58084 [facility] OUTPATIEN 9 9 HEALTH [facility]HA J T VISIT CLINIC OF 15 MINUTES [facility] HYACINTH - 9 9 [facility] T OFFICE 15281 [facility] OUTPATIEN 9 9 HEALTH [facility]ASHA J T VISIT CLINIC OF 15 MINUTES [facility] EMERGENC[facility] 82842 ANGELA MAL, 9 9 [facility] T VISIT ON HIGH/URGE NT SEVERITY [facility]OSPITAL [facility] - 9 9 [facility] OUTPATI[facility] INC T EMERGENCY 31636 [facility]IN[facility] 9 9 [facility] DEPARTMEN INC T VISIT LIMITED/M [facility] - 9 9 [facility] T OFFICE 11109 ARIADNA BAILEYILLO OUTPATIEN 8 8 JR, Kaylie V JR, J V T VISIT 15 MINUTES EMERGENCY 75758 [facility]IN[facility] 8 8 [facility] DEPARTMEN INC T VISIT LIMITED/M [facility] - 8 8 [facility] OUTPATIEN INC T [facility]PITAL C[facility]TRAL - 8 8 [facility] T OFFICE 18268 [facility] OUTPAT[facility]EN 8 8 [facility] T VISIT [facility] 10 [facility] MINUTES OFFICE 51728 [facility] OUTPATIEN 8 8 [facility] T NEW 30 [facility] MIN[facility]ES [facility] HYACINTH - 8 8 [facility] OUTPATIEN INC T EMERGENCY 76334 HYACINTH 8 8 [facility] DEPARTMEN INC T VISIT MODERATE SEVERITY EMERGENCY 97468 [facility] 8 8 [facility] DEPARTMEN INC T VISIT HIGH/URGE NT SEVERITY HOSPITAL HYACINTH - 8 8 [facility] OUTPATIEN INC T
--- OUTSIDE RECORDS SUMMARY | 2016-12-07 18:58 | External Medical Summary Rpt | CCD ---
Author Author , LOVE Organization [facility] Address Unknown Phone [email or web address] Care Team Providers Care Hospital Unit Coordinator Name Role Phone OAKES LC, OAKES Unavailable Unavailable LC [employer] Unavailable Unavailable INC, [employer] AMJAD, AMJAD Unavailable Unavailable AMJAD SOB, AMJAD SOB Unavailable Unavailable ARNOLD, ARNOLD Unavailable Unavailable ARNOLD MERCY, ARNOLD Unavailable Unavailable MERCY ARNOLD MERCY, ARNOLD Unavailable Unavailable MERCY SANDY SANCHEZ, SANDY LAURA Unavailable Unavailable TRESA CALLE, Unavailable Unavailable ,PSC, TRESA CALLE MD,PSC [facility] Unavailable Unavailable MEDICAL GROUP, [facility] FADI KRAFT, Unavailable Unavailable FADI KRAFT BEINEKE Unavailable Unavailable ROCIO BESMENDY MELINDA, BESSON Unavailable Unavailable MELINDA ADEOLA ANT, ADEOLA ANT Unavailable Unavailable ADEOLA ANT, ADEOLA ANT Unavailable Unavailable [facility] Unavailable Unavailable [facility] SHIRLEY WATSON Unavailable Unavailable ROSENTHALKaylie MATHEW JR V, Unavailable Unavailable ROSENTHAL JR, J V [facility], Unavailable Unavailable [facility] Unavailable Unavailable [facility] RODDY ANNA, RODDY Unavailable Unavailable ANNA CHIPPS KIAH & Unavailable Unavailable DUBILIER, CHIPPS KIAH & DUBILIER MARCO GARNICA, LARA Unavailable Unavailable DANIKA MARCO GARNICA, LARA Unavailable Unavailable TASHA MARRERO, Unavailable Unavailable TASHA LARA [facility], Un[facility]available [facility], Unavailable [facility]available [facility] Unavailable Unavailable [facility], [facility] Unavailable Unavailable [facility], [facility] Unavailable Unavailable LAB, [facility] Unavailable Unavailable AND REHA, [facility] OF Unavailable Unavailable THE BLUE, [facility] THE BLUE WILFRID [...] HERNANDEZ GERALD R, Unavailable Unavailable [facility] Unavailable Unavailable CARTHAGE, [facility] Unavailable Unavailable INC, [facility] Unavailable [facility]available HOSPITAL, [facility] Unavailable Unavailable HOSPITAL P, [facility], Unavailable Unavailable [facility], Unavailable Unavailable [facility] ETHAN LONG Unavailable Unavailable ETHAN DAVIDSON Unavailable Unavailable DARRON JARROD, JARROD Unavailable Unavailable JONES TRA, JONES TRA Unavailable Unavailable JONES TRA, JONES TRA Unavailable Unavailable HILARIO II VINCENT, HILARIO Unavailable Unavailable II VINCENT [facility] Unavailable Unavailable IMAGING [facility], [facility], Unavailable Unavailable [facility], Unavailable Unavailable [facility] CONCEPCION JR DWI, CONCEPCION Unavailable Unavailable JR DWI [facility] Un[facility] Unavailable CENTER, [facility] Unavailable Unavailable CENTER, P, [facility], P [facility] & Unavailable Unavailable ANKLE CE, [facility] SANABRIA MERCY, SANABRIA Unavailable Unavailable [facility] LAWRENCE HAM, LAWRENCE HAM Unavailable Unavailable LAWRENCE HAM, [facility] Unavailable Unavailable [facility], Unavailable Unavailable [facility], Unavailable Unavailable [facility] Unavailable Unavailable SERVICES, [facility] RAM LIS, RAM Unavailable Unavailable [...] Unavailable Unavailable BAKARI RANDY, BAKARI Unavailable Unavailable ARNDY BAKARI RANDY, BAKARI Unavailable Unavailable RANDY [facility] Unavailable Unavailable [address]591, [facility] Unavailable Unavailable [facility], [facility] # Unavailable Unavailable [id number], [facility] # [id number] WEHRMAN DEAJ ELIZALDE, Unavailable Unavailable WEHRMAN III LESLEY HALL III, Unavailable Unavailable LESLEY ESCOBAR III, WELLS KIM Unavailable Unavailable [facility] Unavailable Unavailable WHANG LANI, WHANG LANI Unavailable Unavailable WHANG LANI, WHANG LANI Unavailable Unavailable JARVIS LC, JARVIS Unavailable Unavailable LC [facility] Unavailable Unavailable OF [place], [facility] [place] Purpose Continuity of Care Document - 11-24-2007 through 2016 Problems Code Diagnosis DOS Provider Status E119 TYPE 2 11-04-2016 [facility], P WITHOUT COMPLICATIO NS E669 OBESITY 11-04-2016 [facility], P [id number] PAIN IN 11-04-2016 [place] UNSPECIFIED DIABETIC LIMB CENTER, P R000 TACHYCARDIA 11-04-2016 [facility] UNSPECIFIED CENTER, P E1142 TYPE 2 11-01-2016 [facility] ALVA, MELLITUS ,PSC W/DIAB POLYNEUROPA THY G8921 CHRONIC 11-01-2016 [facility] PAIN DUE TO ALVA, TRAUMA ,[facility] [id number] SPONDYLOSIS 11-01-2016 [facility] W/O ALAV, MYELOPATH/R ,PSC ADICULOPATH Y LUMB RGN M5136 OT 11-01-2016 [facility] INTERVERTEB DUNG CALLE MD,PSC DEGEN LUMBAR REGION P55932 ASSISTED 11-01-2016 [facility] CURRENT USE ALVA OF OPIATE ,[facility] ANALGESIC M5117 INTERVERTEB 10-12-2016 [place] RAL DISC FAMILY D/O CHIROPRACT W/RADICULOP ATHY LS RGN M5137 OT 10-12-2016 [place] INTERVERTEB FAMILY RAL DISC CHIROPRACT DEGEN LUMBOSACRAL REGION M5387 OTHER 10-12-2016 [place] SPECIFIED FAMILY DORSOPATHIE CHIROPRACT S LUMBOSACRAL REGION Q66923 MUSCLE 10-12-2016 [place] SPASM OF FAMILY BACK CHIROPRACT M9902 SEGMENTAL & 10-12-2016 [place] SOMATIC FAMILY DYSFUNCTION CHIROPRACT THORACIC REGION M9903 SEGMENTAL & 10-12-2016 [place] SOMATIC FAMILY DYSFUNCTION CHIROPRACT OF LUMBAR REGION M9904 SEGMENTAL & 10-12-2016 [place] SOMATIC FAMILY DYSFUNCTION CHIROPRACT OF SACRAL REGION H6503 ACUTE 10-07-[address] [facility] SEROUS PHYSICIAN OTITIS GROUP MEDIA BILATERAL J029 ACUTE 09-09-[address] [facility] PHARYNGITIS PHYSICIAN GROUP UNSPECIFIED J069 ACUTE UPPER 01-21-2016 [facility] RESPIRATORY INFECTION UNSPECIFIED J329 CHRONIC 01-21-2016 [facility] SINUSITIS UNSPECIFIED Z862 PERSONAL HX 01-21-2016 [facility] DZ BLOOD&BLOOD FORM ORGN [facility] M9901 SEGMENTAL & 01-11-2016 [place] SOMATIC FAMILY DYSFUNCTION CHIROPRACT CERVICAL REGION B370 CANDIDAL 12-31-[address] [facility] STOMATITIS PHYSICIANS GROUP B3781 CANDIDAL 12-31-[address] [facility] ESOPHAGITIS PHYSICIANS GROUP B9789 OT VIRAL 12-31-[address] [facility] AGENT CAUSE PHYSICIANS DISEASES GROUP CLASSIFIED ELSW J0190 ACUTE 12-19-2015 [facility] SINUSITIS UNSPECIFIED H109 UNSPECIFIED 10-31-2015 [facility] CONJUNCTIVI TIS J209 ACUTE 10-31-2015 [facility] BRONCHITIS UNSPECIFIED H8109 MENIERES 08-04-2015 [facility] DISEASE UNSPECIFIED EAR N830 FOLLICULAR 06-10-[address] [facility] CYST OF PHYSICIANS OVARY GROUP R102 PELVIC AND 06-10-[address] [facility] PERINEAL PHYSICIANS PAIN GROUP Z6843 BODY MASS 06-10-[address] [facility] INDEX BMI PHYSICIANS 50-59.9 GROUP ADULT N926 IRREGULAR 05-11-[address] [facility] MENSTRUATIO PHYSICIANS N GROUP UNSPECIFIED G4700 INSOMNIA 2015 [facility] UNSPECIFIED E1121 TYPE 2 05-03-2015 [facility] P W/DIABETIC NEPHROPATHY E1165 TYPE 2 05-03-2015 [facility] [place] R0602 SHORTNESS 05-03-2015 [place] OF BREATH [facility] Z720 TOBACCO USE 05-03-2015 [facility] P J04106 PAIN IN 02-07-2015 [facility] LEFT ANKLE PHYSICIANS, PLLC S67907 PAIN IN 02-07-2015 [place] LEFT FOOT [facility] [id number] UNSPECIFIED 02-07-2015 [facility] SPRAIN UNS PHYSICIANS, TOES PLLC INITIAL ENCOUNTER B379 CANDIDIASIS 02-05-2015 ARNVICKEY [facility] UNSPECIFIED M9985 OTHER 01-08-2015 [place] BIOMECHANIC FAMILY AL LESIONS CHIROPRACT OF PELVIC REGION Z09 ENC F/U 12-30-[address] [facility] EXAM AFTR PHYSICIANS CMPL TX OTH GROUP THAN MALIG NEOPLSM Z3009 ENCOUNTER 12-30-[address] 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 INDEX BMI PHYSICIANS 45.0-49.9 GROUP ADULT E089 DIABETES 12-28-2014 [facility] MELLITUS PHYSICIANS, D/T PLLC UNDERLYING COND W/O COMP N08940 UNSPECIFIED 12-28-2014 [facility] ASTHMA PHYSICIANS, WITH ACUTE PLLC EXACERBATIO N R05 COUGH 12-28-2014 [facility]OS[facility] INC O021 MISSED 12-16-[address] [facility] PHYSICIANS GROUP O034 INCOMPLETE 12-16-2014 [facility] SPONTANEOUS LLC W/O COMPLICATIO N Z3A00 WEEKS OF 12-16-2014 [facility]STATION ANESTH OF OF THE BLUE NOT SPECIFIED Z3A12 12 WEEKS 12-16-[address] [facility] GESTATION PHYSICIANS OF GROUP O200 THREATENED 12-15-2014 [facility] INC Z3A13 13 WEEKS 12-15-2014 [facility] GESTATION [facility] OF INC Z0100 ENCOUNTER 12-13-2014 [facility] EXAM EYES & GRE VISION W/O ABNORMAL FIND I10 ESSENTIAL 12-09-2014 [facility] HYPERTENSIO INC N O000 ABDOMINAL 12-09-2014 [facility] INC Q44003 OTHER SPEC 12-09-2014 [facility] PHYSICIANS, RELATED PLLC COND 1ST TRIMESTER Z3480 ENC 11-25-2014 [place] [facility] OTH NORMAL INC PREG UNS TRIMESTER O0941 SUPERVISION 11-21-[address] [facility] PREG PHYSICIANS W/GRAND GROUP MULTIPARITY FIRST TRI C60256 SUPERVISION 11-21-[address] [facility] ELDERLY PHYSICIANS MULTIGRAVID GROUP A FIRST TRIMESTER O2611 LOW WEIGHT 11-21-[address] [facility] GAIN IN PHYSICIANS GROUP FIRST TRIMESTER 73578 DIAB 10-10-2014 [place] W/NEURO FOOT & MANIFESTS ANKLE CE TYPE II/UNS TYPE UNCNTRL 7295 PAIN IN 10-10-2014 [place] SOFT FOOT & TISSUES OF ANKLE CE LIMB 7823 EDEMA 10-10-2014 [place] [address] SPRAIN AND 10-10-2014 [place] STRAIN OF FOOT & UNSPECIFIED ANKLE CE SITE OF FOOT 4619 ACUTE 10-09-2014 [facility] SINUSITIS, UNSPECIFIED 4659 ACUTE URIS 10-09-2014 [facility] OF UNSPECIFIED SITE 4739 UNSPECIFIED 10-09-2014 [facility] SINUSITIS 41378 MORBID 10-03-2014 [facility] V7791 SCREENING 10-03-2014 [facility]IPOID [facility] DISORDERS [facility] 8260 CLOSED 09-24-2014 [facility] FRACTURE OF PHYSICIANS, ONE OR PLLC MORE PHALANGES OF FOOT 2113 BENIGN 09-18-[address] [facility] NEOPLASM OF PHYSICIANS COLON GROUP 17119 ABDOMINAL 09-11-[address] [facility] PAIN, LEFT PHYSICIANS LOWER GROUP QUADRANT 6259 UNSPEC 09-01-[address] [facility] SYMPTOM PHYSICIANS ASSOC GROUP W/FEMALE GENITAL ORGANS 59364 ABDOMINAL 09-01-[address] [facility] PAIN, PHYSICIANS UNSPECIFIED GROUP SITE 7202 SACROILIITI 08-28-2014 [place] S NOT FAMILY ELSEWHERE CHIROPRACT CLASSIFIED 93532 DEGEN 08-28-2014 [place] LUMBAR/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 CHIROPRACT INTERVERTEB RAL DISC 7243 SCIATICA 08-28-2014 [place] FAMILY CHIROPRACT 7393 NONALLOPATH 08-28-2014 [place] IC LESION FAMILY OF LUMBAR CHIROPRACT REGION NEC 7394 NONALLOPATH 08-28-2014 [place] IC LESION FAMILY OF SACRAL CHIROPRACT REGION NEC 16740 ABDOMINAL 08-26-[address] [facility] PAIN, PHYSICIANS GENERALIZED GROUP V7651 SPECIAL 08-26-[address] [facility] SCREENING PHYSICIANS FOR GROUP MALIGNANT NEOPLASMS COLON 99377 ABDOMINAL 08-23-2014 [facility] PAIN RIGHT PHYSICIANS, LOWER PLLC QUADRANT 4590 UNSPECIFIED 08-18-[address] [facility] HEMORRHAGE PHYSICIANS GROUP 25145 ABDOMINAL 08-18-[address] [facility] PAIN, PHYSICIANS EPIGASTRIC GROUP V7231 ROUTINE 08-13-2014 [facility]YN[facility] AL EXAMINATION V745 SCREENING 08-13-2014 [facility] EXAM[facility]ATION LLC FOR VENEREAL DISEASE V221 SUPERVISION 08-12-2014 [facility] OF OTHER [facility] NORMAL INC 5718 OTHER 08-10-2014 [facility] MEDICAL NONALCOHOLI IMAGING ASS C LIVER DISEASE 63190 ABDOMINAL 08-10-2014 [facility] PAIN OTHER PHYSICIANS, SPECIFIED PLLC SITE 39362 DIAB W/O 07-05-2014 [facility] COMP TYPE [facility] II/UNS NOT INC STATED UNCNTRL 4660 ACUTE 07-05-2014 [facility] BRONCHITIS 1120 CANDIDIASIS 05-22-[address] [facility] OF MOUTH PHYSICIANS GROUP 5278 OTHER 05-15-[address] [facility] SPECIFIED PHYSICIANS DISEASES OF GROUP THE SALIVARY GLANDS 4610 ACUTE 05-06-2014 [facility] 54863 DIAB 03-28-2014 DR SANCHEZ W/NEURO Imer KIRBY DPM MANIFESTS PSC TYPE II/UNS NOT UNCNTRL 09319 DIAB W/O 03-27-2014 [facility] M[facility]ION DIABETIC COMP TYPE CENTER II/UNS TYPE UNCNTRL 12927 OBESITY, 03-27-2014 [facility] V770 SCREENING 03-27-2014 [facility] DISORDER [facility] 3829 UNSPECIFIED 03-07-2014 [facility] OTITIS MEDIA V7612 OTHER 03-06-2014 [facility] SCREENING [facility] MAMMOGRAM INC 2774 DISORDERS 03-03-2014 [facility] BILIRUBIN HOSP EXCRETION 53757 CAUSALGIA 03-03-2014 [facility] 3569 UNSPEC 03-03-2014 [facility] HEREDIT&IDI [facility] OPATHIC HOSP PERIPHERAL NEUROPATHY 7242 LUMBAGO 03-03-2014 [facility] 7820 DISTURBANCE 03-03-2014 [facility] OF SKIN [facility] SENSATION HOSP 89261 OTHER 03-03-2014 [facility] ABNORMAL [facility] GLUCOSE HOSP 7906 OTHER 03-03-2014 [facility] ABNORMAL [facility] BLOOD HOSP CHEMISTRY 6101 DIFFUSE 02-19-[address] [facility] CYSTIC PHYSICIANS MASTOPATHY GROUP 75988 MASTODYNIA 02-19-[address] [facility] PHYSICIANS GROUP 3574 POLYNEUROPA 01-02-2014 [facility] [place] THY OTHER ORTHOPAEDIC DISEASES S PLC CLASSIFIED ELSW 6253 DYSMENORRHE 12-31-[address] [facility] A PHYSICIANS GROUP 10737 UNSPECIFIED 12-25-[address] [facility] VAGINITIS PHYSICIANS AND GROUP VULVOVAGINI TIS 7881 DYSURIA 12-25-[address] [facility] PHYSICIANS GROUP 5110 PLEURISY 11-28-2013 [facility] MADRID WITHOUT MENTION EFFUS/CURRE NT TB 8460 SPRAIN AND 11-03-2013 [facility] STR[facility] OF N EMERGENCY LUMBOSACRAL PHYS E9288 OTHER 11-03-2013 [facility] ACCIDENT N EMERGENCY PHYS 7862 COUGH 11-02-2013 [facility] 7391 NONALLOPATH 10-14-2013 BAKARI RANDY IC LESION OF CERVICAL REGION NEC 7392 NONALLOPATH 10-14-2013 BAKARI RANDY IC LESION OF THORACIC REGION NEC 3559 MONONEURITI 09-19-2013 [facility] MADRID S OF UNSPECIFIED SITE 5789 UNSPECIFIED 09-10-2013 JEANINE ANNA HEMORRHAGE OF GASTROINTES TINAL TRACT 6202 OTHER AND 09-10-2013 [place] UNSPECIFIED MEDICAL OVARIAN IMAGING ASS CYST 462 [...] 05-01-2013 [facility] OF EYES GRE AND VISION 24884 OTHER 04-23-2013 [facility] MADRID MALAISE AND FATIGUE V0481 NEED 03-18-2013 [facility] PROPHYLACTI C VACCINATION &INOCULATIO N FLU 9248 CONTUSION 02-05-2013 [facility] MADRID OF MULTIPLE SITES NEC 41985 SWELLING OF 02-04-2013 [facility] EDIS 66431 SPRAIN AND 02-04-2013 [facility] STRAIN OF UNSPECIFIED SITE OF WRIST 09699 CONTUSION 02-04-2013 [facility] NESBITT OF HAND E9179 OTHER 02-04-2013 [facility] STRIKING EDIS AGAINST W/WO SUBSEQUENT FALL 5758 OTHER 01-16-2013 [facility] AN[facility] SPECIFIED DISORDER OF GALLBLADDER 56944 ABDOMINAL 01-16-2013 [facility] ANT PAIN RIGHT UPPER QUADRANT 48197 UNS 11-29-2012 [facility] GASTRITIS&G ASTRODUODIT IS W/O MENTION HEMORR 5759 UNSPECIFIED 11-29-2012 [facility] MADRID DISORDER OF GALLBLADDER 632 MISSED 08-31-2012 LARA DANIKA 67311 NAUSEA 08-31-2012 GUILLEN ANTONINO ALONE 87352 UNSPEC 08-21-2012 [facility] HEMORRHAGE [facility] EARLY INC ANTEPARTUM 81556 OTH ABN 08-19-2012 [facility] SHAPE/POSIT EDIS ION GRAVID UTERUS ANTEPARTUM 7871 HEARTBURN 04-18-2012 [facility] ANT 63372 ASTHMA, 03-18-2012 [facility] UNSPECIFIED [facility] , INC UNSPECIFIED STATUS 70145 ABDOMINAL 03-18-2012 [facility] PAIN, LEFT [facility] UPPER INC QUADRANT 9195 OT 01-05-2012 [facility] MADRID MX&UNSPEC SITES INSECT BITE NONVENOMOUS INF 82484 DIARRHEA 12-21-2011 [facility] ANT 7213 LUMBOSACRAL 12-14-2011 [facility] SLEEP AND SPONDYLOSIS REHA WITHOUT MYELOPATHY 7231 CERVICALGIA 12-14-2011 [facility] SLEEP AND REHA 8472 LUMBAR 12-14-2011 [facility] SPRAIN AND H SLEEP AND STRAIN REHA 7831 ABNORMAL 11-02-2011 [facility] GARNICA WEIGHT GAIN V2509 OTH GENERAL 10-04-2011 [facility] DANIKA CNSL&ADVICE CONTRACEPT MANAGEMENT V2543 SURVEILLANC 09-06-2011 [facility] GARNICA E PREV PRSC IMPL SUBDERMAL CONTRACEPT 32589 PAIN IN 08-09-2011 WHANG LANI JOINT, ANKLE AND FOOT 7234 BRACHIAL 07-08-2011 OJNES TRA NEURITIS OR RADICULITIS NOS 7294 UNSPECIFIED 07-08-2011 JONES TRA FASCIITIS 12155 UNSPECIFIED 04-13-2011 [facility] ANT ESOPHAGITIS 06187 REFLUX 04-13-2011 PATHOLOGY & ESOPHAGITIS CYTOLOGY LAB 44113 ATROPHIC 04-13-2011 PATHOLOGY & GASTRITIS CYTOLOGY WITHOUT LAB MENTION OF HEMORRHAGE 29807 OTHER SPEC 04-13-2011 [facility] ANT GASTRITIS WITHOUT MENTION HEMORRHAGE 5559 REGIONAL 04-13-2011 [facility] ANT ENTERITIS OF UNSPECIFIED SITE 88916 ULCERATION 04-13-2011 [facility] OF [facility]OS[facility] INTESTINE INC 57449 OTHER 04-13-2011 PATHOLOGY & SPECIFIED CYTOLOGY DISORDER OF LAB INTESTINES 5781 BLOOD IN 04-13-2011 [facility] 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[place] [facility]ICAL OF SPLEEN IMAGING ASS 5693 HEMORRHAGE 03-30-2011 [facility] ANT OF RECTUM AND ANUS 98986 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 71754 HEMATURIA 02-28-2011 [facility] UNSPECIFIED [facility]OSP INC 44369 GROSS 02-22-2011 [facility] P 5060 BRONCHITIS& 12-24-2010 LIANG MARGOTH PNEUMONITIS DUE TO FUMES&VAPOR S 5082 RESPIRATORY 12-24-2010 [place] CONDITIONS MEDICAL DUE TO IMAGING ASS SMOKE INHALATION 25970 SHORTNESS 12-24-2010 LIANG MARGOTH OF BREATH 39268 OTHER 12-24-2010 [place] NONSPECIFIC MEDICAL ABNORMAL IMAGING ASS FINDING OF LUNG FIELD 08710 BLISTERS 12-24-2010 [facility] W/EPID [facility] LOSS-BURN-S INC SHRAVAN DIGIT NOT THUMB 55993 BLISTERS 12-24-2010 [facility] WITH [facility] EPIDERMAL [...] N STICPSC INTERVERTEB RAL DISC SITE UNSPEC 76653 LUMP OR 07-05-2010 [place] MASS IN MEDICAL BREAST IMAGING ASS 6210 [...] IMPLANTABLE CLINIC [place] [address] CHEST PAIN 05-23-2009 [place] UNSPECIFIED [facility] IM[facility]ING ASSOC[facility]ATES 53388 PAINFUL 05-23-2009 [facility] 61162 SPRAIN AND 05-23-2009 [facility] STRAIN OF MEM HOS[facility] CHONDROSTER INC NAL 8489 UNSPECIFIED 05-23-2009 [place] SITE OF EMERGENCY SPRAIN AND SERVICES STRAIN ASSOCIATES V251 ENCOUNTER 08-05-2008 [facility] INSERT/[facility] IU CLINIC OF CONTRACEPTI HÉCTOR VE DEVICE [facility] 00670 NON-HEALING 07-29-2008 [facility] SURGICAL [facility] WOUND NEC CLINIC OF [place] [facility] 81143 CHRONIC 07-17-2008 [facility] FATIGUE [facility] SYNDROME INC V242 ROUTINE 07-17-2008 [facility] FOLLOW-UP CLINIC OF HÉCTOR [facility] 605 REDUNDANT 06-18-2008 [facility] PHIMOSIS 72592 ABNORMAL 06-18-2008 [facility] MATERNAL HEALTH GLUCOSE CLINIC OF [place] ANTEPARTUM [facility] 22115 HIGH 06-18-2008 [facility] HEAD AT ANESTH OF TERM, THE DELIVERED [place]UE[place]ASS 44579 FETOPELVIC 06-18-2008 [facility] ON, CLINIC OF DELIVERED [place] [facility] V270 OUTCOME OF 06-18-2008 [facility] DELIVERY HEALTH SINGLE CLINIC OF LIVEBORN [place] [facility] V3001 SINGLE 06-18-2008 [facility] [place] [address] ABNORMAL 06-17-2008 [facility] MATERNAL [facility] GLUCOSE INC [place]ANCE W/DELIVERY 18568 OBESITY 06-17-2008 [facility] COMP PG [facility] CHILDBIRTH/ INC THE PP DELIVERED 00458 EXCESS 06-13-2008 [facility] OF AFFECT MGMT HÉCTOR MOTH PLL ANTPRTM 37444 TRANSIENT 06-03-2008 [facility] HYPERTENSIO [facility]OS[facility] N OF INC ANTEPARTUM 73109 POLYHYDRAMN 06-03-2008 [facility] ANTEPARTUM CLINIC OF COMPLICATIO [place] N PLLC 12717 THREATENED 05-29-2008 [facility] PREMATURE [facility] LABOR INC ANTEPARTUM 35658 OTHER 05-29-2008 KING CARIAS MD LABOR, ANTEPARTUM V220 SUPERVISION 05-20-2008 [facility] NORMAL PHYSICIANS FIRST LAB 26053 ABN MAT 04-30-2008 GLUCOSE DIAGNOSTICC [place]ANCE ENTER COMPL PG CB/PP UNS EOC 52891 OBES COMP 04-30-2008 [facility] PG [facility] /THE HOSP PP ANTEPARTUM COND/COMP 13988 MATERNAL 04-03-2008 [facility]ES DIAGNOSTICC MELLITUS ENTER ANTEPARTUM 490 BRONCHITIS 04-02-2008 Kaylie SOUSA JR, V SPECIFIED ACUTE OR CHRONIC 15480 OTHER 03-29-2008 M[facility]ER SPECIFED Geelbe N ANTEPARTUM V222 03-29-2008 [facility], [facility] INCIDENTAL INC 11643 LATE 03-17-2008 [facility] INC ANTEPARTUM 8483 SPRAIN AND 02-23-2008 MILLER STRAIN OF VU Security 46748 OTH 02-22-2008 KNOWN/SUSPE DIAGNOSTICC CTED ENTER ABNORMALITY -NEC-APC/C 4720 CHRONIC 02-18-2008 ARIADNA RHINITIS Kaylie DOMINGUEZ V 7840 HEADACHE 02-18-[address] [place] [address] OTH SPEC 01-24-2008 COMP DIAGNOSTICC ENTER UNSPEC EPISODE CARE 79852 POOR 01-24-2008 [facility] ANTPRTM COND/COMP 03997 THREATENED 11-30-2007 [place] [facility] 5990 URINARY 11-24-2007 [facility] TRACT [facility] INFECTION INC SITE NOT SPECIFIED 95728 INFECTIONS 11-24-2007 [facility] GENITOURINA [...] 10 5- 3- 00 06 TO ve DC 26 20 20 09 WN IL 80 [...] 70 8- 9- 00 06 TO ve DE 56 20 20 08 WN N 31 [...] 20 7- 5- 00 06 TO ve DE 76 20 20 08 WN N 00 [...] 10 1- 8- 00 06 TO ve DC 26 20 20 08 WN IL 80 [...] 20 7- 8- 00 06 TO ve DE 76 20 20 08 WN N 00 [...] 10 0- 1- 00 06 TO ve DC 26 20 20 08 WN IL 80 [...] 20 4- 3- 00 06 TO ve DE 76 20 20 08 WN N 00 17 17 37 HC 5 79 PH L AR 1, MA 00 CY 0 MG OF TA CY BL NT ET HI AN A LI 68 05 06 30 30 00 HO Ac SI 00 -1 -0 .0 00 ME ti NO 10 8- 9- 00 06 TO ve DC 26 20 20 08 WN IL 80 [...] 10 5- 9- 00 06 TO ve DC 00 20 20 08 WN ED 50 17 17 57 NI 1 14 PH SO AR LO MA NE CY 4 OF MG CY DO NT SE HI PK AN A ME 68 04 05 60 30 00 HO Ac TF 38 -2 -1 .0 00 ME ti OR 20 4- 9- 00 06 TO ve DE 76 20 20 08 WN N 00 17 17 37 HC 5 79 PH L AR 1, MA 00 CY 0 MG OF TA CY BL NT ET HI AN A LI 68 04 05 30 30 00 HO Ac SI 00 -1 -0 .0 00 ME ti NO 10 1- 5- 00 06 TO ve DC 26 20 20 08 WN IL 80 [...] 20 3- 4- 00 06 TO ve DE 76 20 20 08 WN N 00 [...] ST 00 08 04 24 30 00 DC Ac ER 40 -1 -0 .0 00 [...] 00 3- 4- 00 06 TO ve DC 51 20 20 07 WN IL 40 17 17 84 3 60 PH 10 AR MA MG CY TA OF BL ET CY NT HI AN A ME 68 02 03 60 30 00 HO Ac TF 38 -2 -1 .0 00 ME ti OR 20 2- 7- 00 06 TO ve DE 76 20 20 08 WN N 00 [...] 00 5- 7- 00 06 TO ve DC 51 20 20 07 WN IL 40 [...] 20 7- 0- 00 06 TO ve DE 76 20 20 07 WN N 00 [...] 00 8- 0- 00 06 TO ve DC 51 20 20 07 WN IL 40 [...] 20 4- 3- 00 06 TO ve DE 76 20 20 07 WN N 00 [...] ME 00 06 08 99 60 30 DC 71 AR Ac TF 78 -0 -1 .0 L- 21 NO ti OR 15 3- 6- 00 MA 88 LD ve DE 05 20 20 RT 9 N 06 11 11 RI HC 1 PH CH L AR AR 50 MA D 0 CY W MG # TA 10 BL 05 ET 91 BUENROSTRO 53 07 08 1 20 10 DC 71 AR Ac LF 74 -2 -1 .0 L- 28 NO ti AM 60 8- 6- 00 MA 74 LD ve ET 27 20 20 RT 6 HO 20 11 11 RI XA 5 PH CH ZO AR AR LE MA D -T CY W MP # DS 10 05 TA 91 BL ET BUENROSTRO 53 07 07 1 20 10 DC 71 AR Ac LF 74 -2 -2 [...] 3- 3- 00 MA 88 LD ve DE 05 20 20 RT 9 N 06 [...] 0 14 7 CL 23 CH Ac DC 14 -2 -2 .0 IN 92 ES ti OF 32 5- 5- 00 IC 41 TN ve LO 03 20 20 UT XA 70 11 11 PH CI 1 AR DE N MA CH HC CY AE L L 50 LL 0 C MG TA B DC 00 05 05 0 25 5 CL 23 CH Ac ED 05 -2 -2 .0 IN 92 ES ti NI 40 5- 5- 00 IC 42 TN ve SO 01 20 20 UT NE 72 11 11 PH 5 AR DE 10 MA CH CY AE MG L [...] 9- 0- 00 MA 65 MA ve DC 59 20 20 RT 2 N ED [...] FL 00 04 04 2 1. 1 DC 71 CL Ac UC 17 -1 -1 00 L- 15 AR ti ON 25 5- 8- 0 MA 42 KE ve AZ 41 20 20 RT 4 OL 21 11 11 DE E 1 PH RE 15 AR K 0 MA J MG CY # TA BL 10 ET 05 91 FL 00 04 04 2 1. 1 DC 71 CL Ac UC 17 -1 -1 [...] AN 43 03 03 1 15 15 DC 71 AR Ac TI 19 -1 -1 .0 L- 10 NO ti PY 90 4- 4- 00 MA 88 LD ve RI 01 20 20 RT 4 NE 61 11 11 RI -B 5 PH CH EN AR AR ZO MA D CA CY W IN # E EA [address] 91 OP AM 00 03 03 1 30 10 DC 71 AR Ac OX 78 -1 -1 .0 L- 10 NO ti IC 12 4- 4- 00 MA 88 LD ve IL 61 20 20 RT 5 LI 33 11 11 RI N 1 PH CH 50 AR AR 0 MA D MG CY W # CA PS 10 UL 05 E 91 00 02 02 0 16 5 DC 44 RU Ac 40 -2 -2 .0 L- 91 SH ti 60 1- 1- 00 MA 88 ve 35 20 20 RT 4 NE 70 11 11 IL 5 PH C AR MA CY # 10 05 91 00 02 02 0 16 4 DC 44 RU Ac 40 -1 -1 .0 L- 91 SH ti 60 6- 6- 00 MA 77 ve 35 20 20 RT 5 NE 70 11 11 IL 5 PH C AR MA CY # 10 05 91 AM 00 02 02 0 30 10 DC 71 RU Ac OX 78 -0 -0 .0 L- 05 SH ti IC 12 7- 7- 00 MA 87 ve IL 61 20 20 RT 4 NE LI 33 11 11 IL N 1 PH C 50 AR 0 MA MG CY # CA PS 10 UL 05 E 91 00 04 04 0 12 3 DC 44 WE Ac 40 -0 -0 .0 [...] 00 60 30 CL 19 CL Ac DC 74 -0 -1 .0 IN 52 AR [...] 20 RT 7 YC 66 09 09 DE IN 8 PH CH AR AE 25 MA L 0 CY S MG #5 TA 91 BL ET ME 00 02 02 00 21 6 WA 70 GA Ac TH 60 -0 -2 .0 L- 07 IN ti YL 34 8- 6- 00 MA 21 EY ve DC 59 20 20 RT 8 ED 31 09 09 DE NI 5 PH CH SO AR AE [...] 3- 5- 00 MA 39 E ve DC 59 20 20 RT 1 RO ED [...] 20 RT 8 YC 66 08 09 DE IN 8 PH CH AR AE 25 MA L 0 CY S MG #5 TA 91 BL ET 00 12 01 00 18 7 WA 88 GA Ac 03 -1 -0 0. L- 13 IN ti 18 4- 1- 00 MA 21 EY ve 68 20 20 0 RT 8 51 08 09 DE 2 PH CH AR AE MA L CY S #5 91 ME 00 12 01 00 21 6 WA 69 GA Ac TH 60 -1 -0 .0 L- 99 IN ti YL 34 4- 1- 00 MA 82 EY ve DC 59 20 20 RT 7 ED 31 08 09 DE NI 5 PH CH SO AR AE [...] Procedure DOS Code Location Performer Comment HEMOGLOBI 48851 MATEO COBIAN N 7 DIABETIC GLYCOSYLA CARTHAGE, [facility] A1C P BLOOD 63429 TRESA GRAAY COUNT 7 TRENTON CALLE MD,PSC AUTO&AUTO DIFRNTL WBC COMPREHEN 68783 TRESA GARAY SIVE 7 CHRISTIE CALLE MD,PSC PANEL DRUG TEST 76096 TRESA GARAY PRSMV 7 ALVA INSTRMNViviane ENG,[place] [address] TRESA GARAY GLUTAMYLT 7 CECILIA CALLE MD,PSC GAMMA CHIROPRAC 85186 JAQUELIN VILLEGAS TIC 7 N FAMILY MANIPULAT CHIROPRAC ROSS TX T SPINAL 3-4 REGIONS CHIROPRAC 49344 JAQUELIN LONG TIC 7 N FAMILY MANIPULAT CHIROPRAC ROSS TX T SPINAL 3-4 REGIONS CHIROPRAC 24983 JAQUELIN VILLEGAS TIC 7 N FAMILY MANIPULAT CHIROPRAC ROSS TX T SPINAL 3-4 REGIONS CHIROPRAC 41635 JAQUELIN VILLEGAS TIC 7 N FAMILY MANIPULAT CHIROPRAC ROSS TX T SPINAL 3-4 REGIONS CHIROPRAC 56255 JAQUELIN VILLEGAS TIC 7 N FAMILY MANIPULAT CHIROPRAC ROSS TX T SPINAL 3-4 REGIONS CHIROPRAC 18855 JAQUELIN VILLEGAS TIC 7 N FAMILY MANIPULAT CHIROPRAC ROSS TX T SPINAL 3-4 REGIONS CHIROPRAC 65099 JAQUELIN VILLEGAS TIC 7 N FAMILY MANIPULAT CHIROPRAC ROSS TX T SPINAL 3-4 REGIONS CHIROPRAC 37045 JAQUELIN VILLEGAS TIC 7 N FAMILY MANIPULAT CHIROPRAC ROSS TX T SPINAL 3-4 REGIONS CHIROPRAC 27907 LEODANSARAI VILLEGAS TIC 7 N FAMILY MANIPULAT CHIROPRAC ROSS TX T SPINAL 3-4 REGIONS CHIROPRAC 16823 LEODANSARAI VILLEGAS TIC 7 N FAMILY MANIPULAT CHIROPRAC ROSS TX T SPINAL 3-4 REGIONS CHIROPRAC 63832 JAQUELIN BAKARI TIC 7 N FAMILY MANIPULAT CHIROPRAC ROSS TX T SPINAL 3-4 REGIONS HEMOGLOBI 62443 [place] AMJAD N 7 DIABETIC GLYCOSYLA CARTHAGE, [facility] A1C P CHIROPRAC 09035 JAQUELIN VILLEGAS TIC 7 N FAMILY MANIPULAT CHIROPRAC ROSS TX T SPINAL 3-4 REGIONS CHIROPRAC 91711 JAQUELIN LONG TIC 7 N FAMILY MANIPULAT CHIROPRAC ROSS TX T SPINAL 3-4 REGIONS CHIROPRAC 05567 JAQUELIN VILLEGAS TIC 7 N FAMILY MANIPULAT CHIROPRAC ROSS TX T SPINAL 3-4 REGIONS CHIROPRAC 54159 LEODANSARAI VILLEGAS TIC 7 N FAMILY MANIPULAT CHIROPRAC ROSS TX T SPINAL 3-4 REGIONS CHIROPRAC 85621 JAQUELIN VILLEGAS TIC 7 N FAMILY MANIPULAT CHIROPRAC ROSS TX T SPINAL 3-4 REGIONS CHIROPRAC 43628 LEODANSARAI VILLEGAS TIC 7 N FAMILY MANIPULAT CHIROPRAC ROSS TX T SPINAL 3-4 REGIONS HEMOGLOBI 30306 MATEO MUHAMMADD N 6 DIABETIC GLYCOSYLA CARTHAGE, [facility] A1C P BLOOD 67392 HYACINTH CL[facility]OS COUNT 6 [facility] COMPLETE INC INC AUTO&AUTO DIFRNTL WBC COMPREHEN 02780 HYACINTH CL[facility]OS SIVE 6 [facility] METABOLIC INC INC PANEL COLLECTIO 05353 HYACINTH CLAROS N VENOUS 6 [facility] BLOOD INC INC VENIPUNCT URE LIPID 77632 HYACINTH CL[facility]OS PANEL 6 [facility] INC INC CHIROPRAC 67370 JAQUELIN VILLEGAS TIC 6 N FAMILY RANDY MANIPULAT CHIROPRAC ROSS TX T SPINAL 3-4 REGIONS CHIROPRAC 56320 JAQUELIN VILLEGAS TIC 6 N FAMILY RANDY MANIPULAT CHIROPRAC ROSS TX T SPINAL 3-4 REGIONS HEMOGLOBI 47225 [place] AMJAD N 6 DIABETIC GLYCOSYLA CENTER, ASUNCION A1C P CHIROPRAC 30920 LEODANSAMRARoman VILLEGAS TIC 6 N FAMILY RANDY MANIPULAT CHIROPRAC ROSS TX T SPINAL 3-4 REGIONS CHIROPRAC 13515 LEODANSARAI BAKARI TIC 6 N FAMILY RANDY MANIPULAT CHIROPRAC ROSS TX T SPINAL 3-4 REGIONS CHIROPRAC 16176 LEODANSARAI LONG TIC 6 N FAMILY DARRON MANIPULAT CHIROPRAC ROSS TX T SPINAL 3-4 REGIONS CHIROPRAC 80902 JAQUELIN BAKARI TIC 6 N FAMILY RANDY MANIPULAT CHIROPRAC ROSS TX T SPINAL 3-4 REGIONS CHIROPRAC 93104 JAQUELIN ETHAN TIC 6 N FAMILY DARRON MANIPULAT CHIROPRAC ROSS TX T SPINAL 3-4 REGIONS CHIROPRAC 08579 LEODANSARAI ETHAN TIC 6 N FAMILY DARRON MANIPULAT CHIROPRAC ROSS TX T SPINAL 3-4 [place] [address] HYACINTH CLAROS THYROID 6 [facility] STIMULATI INC INC NG HORMONE TSH LIPID 76278 HYACINTH CL[facility]OS PANEL 6 [facility] INC INC COLLECTIO 44821 HYACINTH CLAROS N VENOUS 6 [facility] BLOOD INC INC VENIPUNCT URE COMPREHEN 28817 HYACINTH CL[facility]OS SIVE 6 [facility] METABOLIC INC INC PANEL CHIROPRAC 70005 JAQUELIN VILLEGAS TIC 6 N FAMILY RANDY MANIPULAT CHIROPRAC ROSS TX T SPINAL 3-4 REGIONS CHIROPRAC 09326 JAQUELIN VILLEGAS TIC 6 N FAMILY RANDY MANIPULAT CHIROPRAC ROSS TX T SPINAL 3-4 REGIONS HEMOGLOBI 86199 [place] AMJAD SOB N 6 DIABETIC GLYCOSYLA CENTER, ASUNCION A1C P CHIROPRAC 60829 JAQUELIN VILLEGAS TIC 6 N FAMILY RANDY MANIPULAT CHIROPRAC ROSS TX T SPINAL 3-4 REGIONS CHIROPRAC 27332 LEODANSARAI BAKARI TIC 6 N FAMILY RANDY MANIPULAT CHIROPRAC ROSS TX T SPINAL 3-4 REGIONS CHIROPRAC 33631 LEODANSARAI BAKARI TIC 6 N FAMILY RANDY MANIPULAT CHIROPRAC ROSS TX T SPINAL 3-4 REGIONS CHIROPRAC 84383 LEODANSARAI ETHAN TIC 6 N FAMILY DARRON MANIPULAT CHIROPRAC ROSS TX T SPINAL 3-4 REGIONS HEMOGLOBI 70443 MATEO AMJAD SOB N 6 DIABETIC GLYCOSYLA CENTER, ASUNCION A1C P CHIROPRAC 24044 JAQUELIN VILLEGAS TIC 6 N FAMILY RANDY MANIPULAT CHIROPRAC ROSS TX T SPINAL 3-4 REGIONS CHIROPRAC 87270 JAQUELIN BAKARI TIC 6 N FAMILY RANDY MANIPULAT CHIROPRAC ROSS TX T SPINAL 3-4 REGIONS CHIROPRAC 06916 JAUQELIN VILLEGAS TIC 6 N FAMILY RANDY MANIPULAT CHIROPRAC ROSS TX T SPINAL 3-4 REGIONS CHIROPRAC 11413 JAQUELIN BAKARI TIC 6 N FAMILY RANDY MANIPULAT CHIROPRAC ROSS [place] T SPINAL 3-[address] [place] [address] [facility] LARA TRANSVAGI 6 PHYSICIAN DANIKA NAL S GROUP CHIROPRAC 71264 JAQUELIN LONG TIC 6 N FAMILY DARRON MANIPULAT CHIROPRAC ROSS TX T SPINAL 3-4 REGIONS CHIROPRAC 19172 JAQUELIN BAKARI TIC 6 N FAMILY RANDY MANIPULAT CHIROPRAC ROSS TX T SPINAL 3-4 REGIONS CHIROPRAC 66435 JAQUELIN ETHAN TIC 6 N FAMILY DARRON MANIPULAT CHIROPRAC ROSS TX T SPINAL 3-4 REGIONS CHIROPRAC 16692 JAQUELIN VILLEGAS TIC 6 N FAMILY RANDY MANIPULAT CHIROPRAC ROSS TX T SPINAL 3-4 REGIONS CHIROPRAC 59369 JAQUELIN BAKARI TIC 6 N FAMILY RANDY MANIPULAT CHIROPRAC ROSS TX T SPINAL 3-[place] [address] [facility] LARA TRANSVAGI 6 PHYSICIAN DANIAK NAL S GROUP RADIOLOGI 94264 [place] GINGER C EXAM 6 MEDICAL EDIS CHEST 2 IMAGING VIEWS ASS FRONTAL&L ATERAL ECG 84516 HYACINTH MARTINEZ ROUTINE 6 [facility] W/LEAST P 12 LDS I&R ONLY URNLS DIP [address] [facility] LARA 6 PHYSICIAN DANIKA STICK/TAB S GROUP LET RGNT NON-AUTO W/O MICRSCP HEMOGLOBI 35618 [place] AMJAD SOB N 6 DIABETIC GLYCOSYLA CARTHAGE, ASUNCION A1C P SURGICAL L3260 ADVANCED ADVANCED BOOT/SHOE 5 TECHNOLOG TECHNOLOG EACH IES INC IES INC RADEX 43944 [place] BEINEKE FOOT 5 MEDICAL ROCIO COMPLETE IMAGING MINIMUM 3 ASS VIEWS CHIROPRAC 01975 JAQUELIN VILLEGAS TIC 5 N FAMILY RANDY MANIPULAT CHIROPRAC ROSS TX T SPINAL 1-2 REGIONS HEMOGLOBI 50407 MATEO AMJAD SOB N 5 DIABETIC GLYCOSYLA CARTHAGE, [facility] [place] [place] [address] HYACINTH CLAROS INFUSION 5 [facility] THERAPY/P INC INC ROPHYLAXI S /DX 1ST TO 1 HR THERAPEUT 30980 HYACINTH CLAROS IC 5 [facility] INJECTION INC INC IV PUSH EACH NEW DRUG ECG 41141 HYACINTH JAVIER JR ROUTINE 5 [facility] W/LEAST P 12 LDS I&R ONLY GLUC BLD 59612 HYACINTH CLAROS GLUC MNTR 5 [facility] DEV [place] [address] HYACINTH CLAROS INFUSION 5 [facility] THERAPY INC INC PROPHYLAX IS/DX EA HOUR ECG 41945 HYACINTH CLAROS ROUTINE 5 [facility] ECG INC INC W/LEAST 12 LDS TRCG ONLY W/O I&R INJECTION J2405 HYACINTH CLAROS 5 [facility] ONDANSETR INC INC ON HCL PER 1 MG TX MISSED [address] [facility] MARCO 5 PHYSICIAN DANIKA [place] [address] [facility], SANABRIA SURG 5 [facility] PATHOLOGY GROSS&ANNA ROSCOPIC EXAM ANESTHESI 16596 [facility] FERRO MAKENZIE A 5 ANESTH INCOMPLET OF THE E/MISSED BLUE US PREG 01783 [place] GINGER UTERUS 5 MEDICAL EDIS REAL TIME IMAGING W/IMAGE ASS DCMTN TRANSVAG OPHTH 21570 [facility] 5 GRE GRE XM&EVAL COMPRHNSV ESTAB PT 1/> DETERMINA 33070 [place] TION 5 GRE GRE REFRACTIV E STATE URNLS DIP 03495 HYACINTH CLAROS 5 [facility] STICK/TAB INC INC LET REAGENT AUTO MICROSCOP Y BLOOD 21804 HYACINTH CLAROS COUNT 5 [facility] COMPLETE INC INC AUTO&AUTO DIFRNTL WBC COMPREHEN 09496 HYACINTH CL[facility]OS SIVE 5 [facility] METABOLIC INC INC PANEL OBSTETRIC 14432 HYACINTH CLAROS PANEL 5 [facility] INC INC INF AGT G0432 HYACINTH CLAROS AB DETECT 5 [facility] EIA TECH INC INC HIV-1&/HI V-2 SCR COLLECTIO 62763 HYACINTH CLAROS N VENOUS 5 [facility] BLOOD INC INC VENIPUNCT URE US PREG [address] [facility] LARA UTERUS 5 PHYSICIAN DANIKA REAL TIME S GROUP W/IMAGE DCMTN TRANSVAG IADNA 33899 HYACINTH CLAROS NEISSERIA 5 [facility] INC INC GONORRHOE AE AMPLIFIED PROBE TQ IADNA 28639 HYACINTH CLAROS CHLAMYDIA 5 [facility] INC INC TRACHOMAT IS AMPLIFIED PROBE TQ RADEX 28631 BUTLER RICHARD FOOT 5 FOOT & N SHABNAM COMPLETE ANKLE CE MINIMUM 3 VIEWS HEMOGLOBI 41631 BUTLER CURTSINGE N 5 DIABETIC R TAR GLYCOSYLA CENTER ASUNCION A1C RADEX 03473 [place] BEINEKE FOOT 5 MEDICAL ROCIO COMPLETE IMAGING MINIMUM 3 [place] [address] [facility], PICKLESIM SURG 5 LLC ER [facility] PATHOLOGY GROSS&ANNA ROSCOPIC EXAM COLSC FLX [address] [facility] MIKAYLA 5 PHYSICIAN CAM W/REMOVAL S GROUP LESION BY HOT BX FORCEPS CHIROPRAC 59307 JAQUELIN VILLEGAS TIC 5 N FAMILY RANDY MANIPULAT CHIROPRAC ROSS TX T SPINAL 1-[address] [place] [address] [facility] ABDOMEN & 5 MEDICAL ROCIO PELVIS IMAGING W/O ASS CONTRAST MATERIAL IADNA 06972 [facility], [facility] CHLAMYDIA 5 LLC ER JR SUMIT TRACHOMAT IS AMPLIFIED PROBE TQ URNLS DIP [address] [facility] OJEDA 5 PHYSICIAN MARGOTH STICK/TAB S GROUP LET RGNT NON-AUTO W/O MICRSCP IADNA 75681 [facility], [facility] NEISSERIA 5 LLC ER JR SUMIT GONORRHOE AE AMPLIFIED PROBE TQ CYTP C/V 93631 [facility], [facility] AUTO THIN 5 LLC ER JR SUMIT LYR PREPJ SCR MNL RESCR PHYS COLLECTIO 46062 HYACINTH CLAROS N VENOUS 5 [facility] BLOOD INC INC VENIPUNCT URE GONADOTRO 87856 HYACINTH CLAROS PIN 5 [facility] [place] [address] [facility] ABDOMEN & 5 MEDICAL ROCIO PELVIS IMAGING W/O ASS CONTRAST MATERIAL [facility] 21860 JAQUELIN VILLEGAS TIC 5 N FAMILY RANDY MANIPULAT CHIROPRAC ROSS TX T SPINAL 1-2 REGIONS COLLECTIO 45631 HYACINTH CLAROS N VENOUS 5 [facility] BLOOD INC INC VENIPUNCT URE LIPID 08103 HYACINTH CLAROS PANEL 5 [facility] INC INC FOR DIAB A5512 MATEO AMJAD SOB ONLY MX 5 DIABETIC DNSITY CENTER, INSRT DIR P FORMD PRFAB EA DIAB ONLY A5500 MATEO AMJAD SOB FIT CSTM 5 DIABETIC PREP&SPL CENTER, SHOE MX P DNSITY INSRT HEMOGLOBI 22437 MATEO AMJAD SOB N 5 DIABETIC GLYCOSYLA CENTER, ASUNCION A1C P INJECTION J1040 [facility] JEANINE 5 PHYSICIAN ANNA METHYLPRE S GROUP DNISOLONE ACETATE 80 MG THERAPEUT [address] [facility] JEANINE IC 5 PHYSICIAN ANNA PROPHYLAC S GROUP TIC/DX INJECTION SUBQ/IM COLLECTIO 67597 MATEO COBIAN SOB N VENOUS 5 DIABETIC BLOOD CENTER VENIPUNCT URE THERAPEUT 54602 LEODANSARAI VILLEGAS IC PX 1/> 5 N FAMILY RANDY AREAS CHIROPRAC EACH 15 T MIN EXERCISES CHIROPRAC 87217 LEODANSAMRARoman VILLEGAS TIC 5 N FAMILY RANDY MANIPULAT CHIROPRAC ROSS TX T SPINAL 1-2 REGIONS CHIROPRAC 32863 LEODANSARAI VILLEGAS TIC 5 N FAMILY RANDY MANIPULAT CHIROPRAC ROSS TX T SPINAL 1-2 REGIONS APPL 24160 LEODANSARAI VILLEGAS MODALITY 5 N FAMILY RANDY 1/> AREAS CHIROPRAC TRACTION T MECHANICA L THERAPEUT 96961 JAQUELIN VILLEGAS IC PX 1/> 5 N FAMILY RANDY AREAS CHIROPRAC EACH 15 T MIN EXERCISES CHIROPRAC 21769 JAQUELIN VILLEGAS TIC 5 N FAMILY RANDY MANIPULAT CHIROPRAC ROSS TX T SPINAL 1-2 REGIONS [facility]- 97470 HYACINTH CLAROS AIDED 5 [facility] DETECTION INC INC SCREENING MAMMOGRAP HY SCREENING G0202 HYACINHT CLAROS 5 [facility] MAMMOGRAP INC INC HY CHIRAG INCL CAD WHEN PERFORMD APPL 37391 LEODANSARAI VILLEGAS MODALITY 5 N FAMILY RANDY 1/> AREAS CHIROPRAC ELEC T STIMJ EA 15 MIN THERAPEUT 13806 JAQUELIN VILLEGAS IC PX 1/> 5 N FAMILY RANDY AREAS CHIROPRAC EACH 15 T MIN EXERCISES CHIROPRAC 95359 JAQUELIN VILLEGAS TIC 5 N FAMILY RANDY MANIPULAT CHIROPRAC ROSS TX T SPINAL 1-2 REGIONS COMPREHEN 14455 [facility] SIVE 5 [facility]OSP PANEL HEMOGLOBI 68680 CEN[facility]AL CENTRAL N 5 [facility]ISM [facility] GLYCOSYLA HOSP HOSP ASUNCION A1C THERAPEUT 51496 JAQUELIN VILLEGAS IC PX 1/> 5 N FAMILY RANDY AREAS CHIROPRAC EACH 15 T MIN EXERCISES CHIROPRAC 10745 JAQUELIN VILLEGAS TIC 5 N FAMILY RANDY MANIPULAT CHIROPRAC ROSS TX T SPINAL 1-2 REGIONS [address] [facility] MARCO TRANSVAGI 4 PHYSICIAN DANIKA [facility] S GROUP NEEDLE 00180 [facility] EMG EA 4 NEUROLOGY AYAD EXTREMTY W/PARASPI CONSULTAN NL AREA T COMPLETE NERVE 53248 [facility] CONDUCTIO 4 NEUROLOGY AYAD N STUDIES -12 CONSULTAN STUDIES T SMR PRIM [address] [facility] MARCO SRC WET 4 PHYSICIAN DANIKA [facility] NFCT AGT MRI 05601 CENTRAL JONES TRA SPINAL 4 [place] CANAL ORTHOPAED LUMBAR ICS PLC W/O CONTRAST MATERIAL RADIOLOGI 02855 [place] [facility] C EXAM 4 MEDICAL ROCIO CHEST 2 IMAGING VIEWS ASS FRONTAL&L ATERAL RADEX 59087 JONES TRA JONES TRA SPINE 4 LUMBOSACR AL 2/3 VIEWS CHIROPRAC 64945 BAKARI BAKARI TIC 4 RANDY RANDY MANIPULAT ROSS TX SPINAL 3-4 REGIONS THERAPEUT 71618 BAKARI BAKARI IC PX 1/> 4 RANDY RANDY AREAS EACH 15 MIN EXERCISES THERAPEUT 68511 BAKARI BAKARI IC PX 1/> 4 RANDY RANDY AREAS EACH 15 MIN EXERCISES APPL 52178 BAKARI BAKARI MODALITY 4 RANDY RANDY 1/> AREAS TRACTION MECHANICA L CHIROPRAC 74059 BAKARI BAKARI TIC 4 RANDY RANDY MANIPULAT ROSS TX SPINAL 3-4 REGIONS CHIROPRAC 97053 BAKARI BAKARI TIC 4 RANDY RANDY MANIPULAT ROSS TX SPINAL 3-4 REGIONS THERAPEUT 40414 BAKARI BAKARI IC PX 1/> 4 RANDY RANDY AREAS EACH 15 MIN EXERCISES THERAPEUT 31799 BAKARI BAKARI IC PX 1/> 4 RANDY RANDY AREAS EACH 15 MIN EXERCISES CHIROPRAC 05524 BAKARI BAKARI TIC 4 RANDY RANDY MANIPULAT ROSS TX SPINAL 3-4 REGIONS RADEX 70328 [place] RICHARDSO FOOT 4 FOOT & N SHABNAM COMPLETE ANKLE CE MINIMUM 3 VIEWS THERAPEUT 47069 BAKARI BAKARI IC PX 1/> 4 RANDY RANDY AREAS EACH 15 MIN EXERCISES CHIROPRAC 56513 BAKARI BAKARI TIC 4 RANDY RANDY MANIPULAT ROSS TX SPINAL 3-4 REGIONS CHIROPRAC 70101 BAKARI BAKARI TIC 4 RANDY RANDY MANIPULAT ROSS TX SPINAL 3-4 REGIONS THERAPEUT 39678 BAKARI BAKARI IC PX 1/> 4 RANDY RANDY AREAS EACH 15 MIN EXERCISES THERAPEUT 58038 BAKARI BAKARI IC PX 1/> 4 RANDY RANDY AREAS EACH 15 MIN EXERCISES CHIROPRAC 56068 BAKARI BAKARI TIC 4 RANDY RANDY MANIPULAT ROSS [place] SPINAL 3-[address] [place] [address] [facility] ABDOMEN & 4 MEDICAL EDIS PELVIS IMAGING W/O ASS CONTRAST MATERIAL THERAPEUT 58054 BAKARI BAKARI IC PX 1/> 4 RANDY RANDY AREAS EACH 15 MIN EXERCISES CHIROPRAC 86314 BAKARI BAKARI TIC 4 RANDY RANDY MANIPULAT ROSS TX SPINAL 3-4 REGIONS THERAPEUT 89276 BAKARI BAKARI IC PX 1/> 4 RANDY RANDY AREAS EACH 15 MIN EXERCISES CHIROPRA 92991 BAKARI BAKARI TIC 4 RANDY RANDY MANIPULAT ROSS TX SPINAL 3-4 REGIONS THERAPEUT 11756 BAKARI BAKARI IC PX 1/> 4 RANDY RANDY AREAS EACH 15 MIN EXERCISES CHIROPRAC 16760 BAKARI BAKARI TIC 4 RANDY RANDY MANIPULAT ROSS TX SPINAL 3-4 REGIONS THERAPEUT 41301 BAKARI BAKARI IC PX 1/> 4 RANDY RANDY AREAS EACH 15 MIN EXERCISES CHIROPRAC 04886 BAKARI BAKARI TIC 4 RANDY RANDY MANIPULAT ROSS TX SPINAL 3-4 REGIONS CHIROPRAC 94445 BAKARI BAKARI TIC 4 RANDY RANDY MANIPULAT ROSS TX SPINAL 3-4 REGIONS THERAPEUT 35743 BAKARI BAKARI IC PX 1/> 4 RANDY RANDY AREAS EACH 15 MIN EXERCISES THERAPEUT 65112 BAKARI BAKARI IC PX 1/> 4 RANDY RANDY AREAS EACH 15 MIN EXERCISES CHIROPRAC 69538 BAKARI BAKARI TIC 4 RANDY RANDY MANIPULAT ROSS TX SPINAL 3-4 REGIONS CHIROPRAC 45873 BAKARI BAKARI TIC 4 RANDY RANDY MANIPULAT ROSS TX SPINAL 3-4 REGIONS THERAPEUT 96942 BAKARI BAKARI IC PX 1/> 4 RANDY RANDY AREAS EACH 15 MIN EXERCISES THERAPEUT 79204 BAKARI BAKARI IC PX 1/> 4 RANDY RANDY AREAS EACH 15 MIN EXERCISES 36267 [facility] TRANSVAGI 4 DANIKA DANIKA NAL CHIROPRAC 33754 BAKARI BAKARI TIC 4 RANDY RANDY MANIPULAT ROSS TX SPINAL 3-4 REGIONS CHIROPRAC 96628 BAKARI BAKARI TIC 4 RANDY RANDY MANIPULAT ROSS TX SPINAL 3-4 REGIONS THERAPEUT 73071 BAKARI BAKARI IC PX 1/> 4 RANDY RANDY AREAS EACH 15 MIN EXERCISES THERAPEUT 57460 BAKARI BAKARI IC PX 1/> 4 RANDY RANDY AREAS EACH 15 MIN EXERCISES CHIROPRAC 45388 BAKARI BAKARI TIC 4 RANDY RANDY MANIPULAT ROSS TX SPINAL 3-4 REGIONS CHIROPRAC 07655 BAKARI BAKARI TIC 4 RANDY RANDY MANIPULAT ROSS TX SPINAL 3-4 REGIONS THERAPEUT 93044 BAKARI BAKARI IC PX 1/> 4 RANDY RANDY AREAS EACH 15 MIN EXERCISES APPL 25416 BAKARI BAKARI MODALITY 4 RANDY RANDY 1/> AREAS TRACTION MECHANICA L APPL 42439 BAKARI BAKARI MODALITY 4 RANDY RANDY 1/> AREAS TRACTION MECHANICA L THERAPEUT 51401 BAKARI BAKARI IC PX 1/> 4 RANDY RANDY AREAS EACH 15 MIN EXERCISES CHIROPRAC 79410 BAKARI BAKARI TIC 4 RANDY RANDY MANIPULAT ROSS TX SPINAL 3-4 REGIONS [facility] 86149 [facility] LARA 4 DANIKA DANIKA TEST VISUAL COLOR CMPRSN METHS GONADOTRO 76003 HYACINTH CLAROS PIN 4 [facility] CHORIONIC INC INC QUALITATI VE CHIROPRAC 39261 BAKARI BAKARI TIC 4 RANDY RANDY MANIPULAT ROSS TX SPINAL 3-4 REGIONS APPL 08584 BAKARI BAKARI MODALITY 4 RANDY RANDY 1/> AREAS TRACTION MECHANICA L THERAPEUT 06698 BAKARI BAKARI IC PX 1/> 4 RANDY RANDY AREAS EACH 15 MIN EXERCISES APPL 24443 BAKARI BAKARI MODALITY 4 RANDY RANDY 1/> AREAS TRACTION MECHANICA L CHIROPRAC 43668 BAKARI BAKARI TIC 4 RANDY RANDY MANIPULAT ROSS TX SPINAL 3-4 REGIONS THERAPEUT 39106 BAKARI VILLEGAS IC PX 1/> 4 RANDY RANDY AREAS EACH 15 MIN EXERCISES CHIROPRAC 56599 BAKARI VILLEGAS TIC 4 RANDY RANDY MANIPULAT ROSS TX SPINAL 3-4 REGIONS APPL 47770 BAKARI VILLEGAS MODALITY 4 RANDY RANDY 1/> AREAS TRACTION MECHANICA L SEDIMENTA 05381 COMBINED COMBINED TION RATE 4 PHYSICIAN PHYSICIAN RBC S LA S LA NON-AUTOM ATED LIPID 20815 COMBINED COMBINED PANEL 4 PH[place] [address] COMBINED COMBINED FREE 4 PHYSICIAN PHYSICIAN THYROXINE S LA S LA GENERAL 25943 COMBINED COMBINED HEALTH 4 PHYSICIAN PHYSICIAN PANEL S LA S LA IRON 56416 COMBINED COMBINED BINDING 4 PHYSICIAN PHYSICIAN CAPACITY S LA S LA BLOOD 39985 COMBINED COMBINED COUNT 4 PHYSICIAN PHYSICIAN RETICULOC S LA S LA YTE AUTOMATED 25 59334 COMBINED COMBINED HYDROXY 4 PHYSICIAN PHYSICIAN INCLUDES S LA S LA FRACTIONS IF PERFORMED CYANOCOBA 61246 COMBINED COMBINED SCOOTER 4 PHYSICIAN PHYSICIAN VITAMIN S LA S LA B-12 DETERMINA 17166 SHAUN CHOALL TION 4 GRE GRE REFRACTIV E STATE OPHTH 49035 [facility] 4 GRE GRE XM&EVAL COMPRHNSV ESTAB PT 1/> IADNA 75233 PICKLESIM PICKLESIM CHLAMYDIA 4 ER JR USMIT ER JR SUMIT TRACHOMAT IS AMPLIFIED PROBE TQ IADNA 75145 PICKLESIM PICKLESIM NEISSERIA 4 ER JR SUMIT ER JR SUMIT GONORRHOE AE AMPLIFIED PROBE TQ CYTP C/V 33919 PICKLESIM PICKLESIM AUTO THIN 4 ER JR SUMIT ER JR SUMIT LYR PREPJ SCR MNL RESCR PHYS ADMINISTR G0008 [facility] DOBSON ATION OF 4 [facility] INFLUENZA VIRUS VACCINE INFLUENZA Q2038 [facility] VACC 4 [facility] SPLIT VIRUS 3 YRS & > IM FLUZONE WRIST L3908 [facility] HAND 3 ORTHOSIS EXT CONTROL COCK-UP PREFAB RADEX 03567 GINGER GINGER HAND 3 ED[place] MIN[place] [address] [place] [address] GINGER GINGER ABDOMEN & 3 EDIS ED[place] PELVIS W/[place] [address] [facility] ABDOMINAL 3 [facility] REAL [place] TIME W/[place] [address] [facility] TRANSVAGI 3 DANIKA [place] PREG 64392 [facility] UTERUS 3 DANIKA DANIKA REAL TIME W/IMAGE DCMTN TRANSVAG URINE 39279 [facility] 3 DANIKA DANIKA TEST VISUAL COLOR CMPRSN METHS GONADOTRO 34223 [facility] PIN 3 [facility] INC QUANTITAT ROSS GONADOTRO 95309 [facility] PIN 3 [facility] INC QUANTITAT ROSS URINE 68052 [facility] 3 [facility] TEST INC INC VISUAL COLOR CMPRSN METHS URNLS DIP 85304 [facility] HYACINTH 3 [facility] STICK/TAB INC INC LET REAGENT AUTO MICROSCOP Y BLOOD 82366 [facility] COUNT 3 [facility] COMPLETE INC INC AUTO&[place] PREG 49418 [facility] UTERUS 3 [facility] REAL TIME INC INC W/IMAGE DCMTN TRANSVAG COMPREHEN 96806 [facility] SIVE 3 [facility] METABOLIC INC INC PANEL CULTURE 21004 [facility] RAM BACTERIAL 3 [facility] LIS INC QUANTTATI VE COLONY COUNT URINE COMPREHEN 23315 [facility] SIVE 3 [facility] METABOLIC INC INC PANEL HEMOGLOBI 61985 [facility] N 3 [facility] GLYCOSYLA INC INC ASUNCION A1C DETERMINA 38646 SHAUN RAO 3 GRE GRE REFRACTIV E STATE OPHTH 03491 SHAUN DUNN [facility] 3 GRE GRE XM&EVAL COMPRHNSV ESTAB PT 1/> URNLS DIP 99089 [facility] 3 [facility] STICK/TAB INC INC LET REAGENT AUTO MICROSCOP Y URINE 89071 [facility] 3 [facility] TEST INC INC VISUAL COLOR CMPRSN METHS URNLS DIP 55420 [facility] 2 DANIKA DANIKA STICK/TAB LET RGNT NON-AUTO W/O MICRSCP CYTP C/V 59573 PICKLESIM PICKLESIM AUTO THIN 2 ER JR SUMIT ER JR SUMIT LYR PREPJ SCR MNL RESCR PHYS APPL 07704 [facility] MODALITY 2 [facility] 1/> AREAS INC INC ELEC STIMJ UNATTENDE D THERAPEUT 65969 [facility] IC PX 1/> 2 [facility] AREAS INC INC EACH 15 MIN EXERCISES APPLICATI 97542 [facility] ON 2 [facility] MODALITY INC INC 1/> AREAS HOT/COLD PACKS APPLICATI 15917 [facility] ON 2 [facility] MODALITY INC INC 1/> AREAS HOT/COLD PACKS THERAPEUT 34587 [facility] IC PX 1/> 2 [facility] AREAS INC INC EACH 15 MIN EXERCISES APPL 20451 [facility] MODALITY 2 [facility] 1/> AREAS INC INC ELEC STIMJ UNATTENDE D APPL 24207 [facility] MODALITY 2 [facility] 1/> AREAS INC INC ELEC STIMJ EA 15 MIN APPL 98821 [facility] MODALITY 2 [facility] 1/> AREAS INC INC ELEC STIMJ UNATTENDE D THERAPEUT 86576 [facility] IC PX 1/> 2 [facility] AREAS INC INC EACH 15 MIN EXERCISES APPLICATI 07753 [facility] ON 2 [facility] MODALITY INC INC 1/> AREAS HOT/COLD PACKS GENERAL 47345 COMBINED COMBINED HEALTH 2 PHYSICIAN PHYSICIAN PANEL S LA S LA LIPID 01410 COMBINED COMBINED PANEL 2 PHYSICIAN PHYSICIAN S LA S LA SEDIMENTA 78369 COMBINED COMBINED TION RATE 2 PHYSICIAN PHYSICIAN [place] [address] COMBINED COMBINED THYROXINE 2 PHYSICIAN PHYSICIAN TOTAL S LA S LA THYROID 51124 COMBINED COMBINED HORM 2 PHYSICIAN PHYSICIAN UPTK/THYR S LA S LA OID HORMONE BINDING RATIO PHYSICAL 16393 [facility] THERAPY 2 [facility] EVALUATIO INC INC N 63429 [place] TRANSVAGI 2 DANIKA DANIKA NAL COLLECTIO 12451 [facility] VENOUS 2 [facility] VENIPUNCT URE GENERAL 64462 [facility] 2 [facility] NRV CNDJ 33687 GUILLEN ANTONINO GUILLEN ANTONINO AMPLITUDE 2 & LATENCY EACH NERVE SENSORY NRV D 81558 GUILLEN ANTONINO GUILLEN ANTONINO AMPLT&LAT 2 ENCY EA NRV MOTOR W/F-WAVE STD HEMOGLOBI 46478 [facility] 2 [facility] [place] [address] [facility] HOMOCYSTE 2 [facility] ORGANIC 79078 [facility] ACID 1 2 [facility] ROSS CYANOCOBA 67025 [facility] SCOOTER 2 [facility] B-12 REMOVAL 45760 [facility] NON-BIODE 2 DANIKA DANIKA GRADABLE DRUG DELIVERY IMPLANT NRV CNDJ 37733 JONES TRA JONES TRA AMPLITUDE 2 & LATENCY EACH NERVE SENSORY [place] DJ 04018 JONES TRA JONES TRA AMPLT&LAT 2 ENCY EA NRV MOTOR W/F-WAVE STD NEEDLE 14864 JONES TRA JONES TRA EMG EA 2 EXTREMTY W/PARASPI NL AREA COMPLETE MRI 76789 JONES TRA JONES TRA SPINAL 2 CANAL CERVICAL W/O CONTRAST MATRL RADEX 36364 JONES TRA JONES TRA SPINE 2 THORACIC 2 VIEWS RADEX 54804 JONES TRA JONES TRA SPINE 2 CERVICAL 2 OR 3 [place] [address] [facility] CLOSTRIDI 2 [facility] [place] [address] [facility] GIARDIA 2 [facility] INC INC OVA&THUAN 52527 [facility] ITES 2 [facility] DIRECT INC INC SMEARS CONCENTRA TION & ID CUL BACT 64052 [facility] STOOL 2 [facility] AEROBIC INC INC ISOL SALMONELL A&SHIGELL DRUG SCR G0434 [facility] NOT 2 CHROMATOG [place]; [place] [address] [facility] AMYLASE 2 [facility] INC INC CUL 13014 [facility] PRSMPTV 2 [facility] PTHGNC INC INC ORGANISMS SCR DNS CHART SPECIAL 08604 PATHOLOGY WILFRID PAT STAIN 2 & GROUP 1 CYTOLOGY MICROORGA LAB NISMS I&R SPCL STN 99305 PATHOLOGY WILFR[place] PAT 2 I&R 2 & EXCPT CYTOLOGY MICROORG/ LAB ENZYME/[place] [address] PATHOLOGY [place] PAT SURG 2 & PATHOLOGY CYTOLOGY LAB GROSS&ANNA ROSCOPIC EXAM COMPREHEN 38301 [facility] SIVE 2 [facility] METABOLIC INC INC PANEL URINE 00953 [facility] 2 [facility] TEST INC [place] [address] [facility] ABDOMEN & 2 MEDICAL EDIS PELVIS IMAGING W/O ASS CONTRAST MATERIAL COLONOSCO 90854 ADEOLA ANT ADEOLA ANT PY 2 W/BIOPSY SINGLE/MU LTIPLE COLSC FLX 69806 ADEOLA ANT ADEOLA ANT W/RMVL 2 [place] [address] [facility] INFUSION 2 [facility] THERAPY INC INC PROPHYLAX IS/DX EA HOUR ANES 14370 COMMUNITY MCDANIEL FIDE LOWER 2 ANESTH INTESTINE OF THE [place] [address] [facility] LIPASE 2 [facility] INC INC EGD 68694 ADEOLA ANT ADEOLA ANT TRANSORAL 2 BIOPSY SINGLE/[place] [address] HYACINTH HYACINTH INFUSION 2 [facility] THERAPY/P INC INC ROPHYLAXI S /DX 1ST TO 1 HR URNLS DIP 14307 [facility]OS 2 [facility] STICK/TAB INC INC LET REAGENT AUTO MICROSCOP Y BLOOD 87632 [facility] COUNT 2 [facility] COMPLETE INC INC AUTO&[place] [address] [facility] ABDOMEN & 2 [facility] PELVIS INC INC W/O CONTRAST MATERIAL URNLS DIP 09952 OAKES OAKES 2 LC LC STICK/TAB LET RGNT NON-AUTO W/O MICRSCP DRUG SCR G0434 [facility] ABDI NOT 1 CHROMATOG RAPHIC; ANY NUMBER PT ENC RADIOLOGI 69246 PAYAL MILES C EXAM 1 MEDICAL EDIS CHEST 2 IMAGING VIEWS ASS FRONTAL&L ATERAL PRESSURIZ 33493 [facility] ED/NONPRE 1 [facility] SSURIZED INC INC INHALATIO N TREATMENT INJECTION 90102 [facility] BRAVO HAM 1 SINGLE/ML T TRIGGER POINT 3/> MUSCLES NJX 57986 [facility]VO HAM DX/THER 1 SBST EPIDURAL/ SUBARACH LUMBAR/SA CRAL FLUOR 06650 [facility] BRAVO HAM NEEDLE/CA 1 TH SPINE/PAR ASPINAL DX/THER ADDON OPHTH 62137 [facility]IM[facility]E [facility] 1 VISION ANG XM&EVAL COMPRE NEW PT 1/> VST MRI 31341 NEURODIAG TALANOW SPINAL 1 NOSTICPSC ROL CANAL LUMBAR W/O CONTRAST MATERIAL RADEX 24565 CENTRAL JARVIS SPINE 1 [place] LC LUMBOSACR ORTHOPAED AL 2/3 ICS PLC VIEWS PRESSURIZ 49677 [facility] ED/NONPRE 1 [facility] SSURIZED INC INC INHALATIO N TREATMENT US BREAST 14271 PAYAL MILES REAL 1 MEDICAL EDIS TIME IMAGING W/IMAGE ASS DOCUMENTA TION ANES 64732 COMMUNITY KAITLIN HYSTEROSC 1 ANESTH ADRIANA OPY&/HYST OF THE EROSALPIN BLUE GOGRAPHY W/BX HYSTEROSC 86562 [facility] OPY BX 1 [facility] ENDOMETRI INC INC UM&/POLYP C W/[place] [address] CHIPPS KIRK ANNA SURG 1 KIAH & PATHOLOGY DUBILIER GROSS&ANNA ROSCOPIC EXAM HYSTEROSC 6812 HYACINTH GARCIAON OPY 1 [facility] INC INC OTHER 6909 [facility] DILATION 1 [facility] [place] [address] HYACINTHSEFERINO GARCIAON INFUSION 1 [facility] THERAPY INC INC PROPHYLAX IS/DX EA HOUR BLOOD 95945 [facility] COUNT 1 [facility] COMPLETE INC INC AUTO&AUTO DIFRNTL WBC GONADOTRO 66674 [facility] PIN 1 [facility] [place] [address] [facility] TRANSVAGI 1 HEALTH DANIKA NAL [facility] OF [facility] IADNA 64154 PATHOLOGY PATHOLOGY NEISSERIA 0 & & CYTOLOGY CYTOLOGY GONORRHOE LAB LAB AE AMPLIFIED PROBE TQ CYTP C/V 65022 PATHOLOGY PATHOLOGY AUTO THIN 0 & & LYR CYTOLOGY CYTOLOGY PREPJ SCR LAB LAB MNL RESCR PHYS IADNA 71669 PATHOLOGY PATHOLOGY CHLAMYDIA 0 & & CYTOLOGY CYTOLOGY TRACHOMAT LAB LAB IS AMPLIFIED PROBE TQ INSERTION 58445 [facility] 0 [facility] IMPLANTAB [facility] [place] CONTRACEP TIVE CAPSULES ETONOGEST J7307 [facility] REL 0 HEALTH DANIKA CNTRACPT CLINIC OF IMPL SYS [place] INCL IMPL & SPL URINE 04498 [facility] 0 [facility]ALTH DANIKA TEST CLINIC OF VISUAL [place] COLOR CMPRSN METHS URINE 44921 [facility] 0 [facility] TEST INC INC VISUAL COLOR CMPRSN METHS RADIOLOGI 26018 Imer MONTAGUE EXAM 0 MEDICAL RANI P CHEST 2 IMAGING VIEWS ASSOCIATE FRONTAL&L S ATERAL URINE 35648 [facility], 9 [facility] T[facility]HA J TEST CLINIC OF VISUAL COLOR [place] CMPRSN PLLC METHS LEVONORGE J7302 [facility], STREL-RLS 9 [facility] INTRAUTER N [place] CNTRACPT PLLC 52 MG INSERTION 34346 [facility], [facility] J INTRAUTER CLINIC OF INE DEVICE [place] IUD PLLC COMPREHEN 50258 [facility] SIVE 9 [facility] METABOLIC INC INC PANEL CYTP C/V 30031 PATHOLOGY PATHOLOGY AUTO THIN 9 & & LYR CYTOLOGY CYTOLOGY PREPJ SCR LAB LAB MNL RESCR PHYS BLOOD 72651 [facility] COUNT 9 [facility] COMPLETE INC INC AUTO&AUTO DIFRNTL [facility] 90912 [facility] NIKITA, DISCHARGE 9 CARE R [facility] MANAGEMEN S T 30 MIN/< CIRCUMCIS 81737 [facility] 9 CARE [facility] W/CLAMP/O PENDING SALE TO [facility] DEV S W/BLOCK SUBQ [address] CARE PER ASSOCIATE DAY E/M S NORMAL SUBQ 54525 [place] [address] CARE R [place] CARE PER ASSOCIATE DAY E/M S NORMAL 60069 KING DYEL, DELIVERY 9 ARETHA Andrade ONLY ANESTHESI 39353 [facility] 9 ANESTH LESLEY F OF THE DELIVERY [place] ONLY 92918 [facility], DELIVERY 9 [facility] ONLY CLINIC OF W/POSTPAR IVAN CARE [place] PLLC LOW 741 [facility] CERVICAL 9 [facility] INC INC SECTION 1ST 05087 [facility] NIKITA, HOSP/JIMBO 9 [facility] S CARE PER DAY NML NB DOPPLER 15558 [facility] VELOCIMET 9 [facility] RY CLINIC OF UMBILICAL ARTERY [place] [facility] [address]99 [facility], BIOPHYSIC 9 [facility] AL CLINIC OF PROFILE W/[place] [address] [facility], 9 [facility]ALTH T[facility] J UTERUS CLINIC OF LIMITED 1/> [place] FETUSES PLLC DOPPLER 94419 [facility], VELOCIMET 9 [facility] J RY [facility] OF UMBILICAL ARTERY [place] PLLC 54106 [facility], BIOPHYSIC 9 [facility] J AL CLINIC OF PROFILE W/O [place] 14300 [facility], UTERUS 9 [facility] J REAL TIME CLINIC OF F/U TRNSABDL [place] PER FETUS PLLC 89474 [facility], BIOPHYSIC 9 [facility] J AL CLINIC OF PROFILE W/O [place] NON-STRES [facility] TEST[facility] DOPPLER 61004 [facility], VELOCIMET 9 [facility] J RY [facility] [place] [place] [address] [facility], 9 [facility] J UTERUS CLINIC OF LIMITED 1/> [place] FETUSES PLLC BASIC 49540 [facility] METABOLIC 9 [facility] PANEL INC INC CALCIUM TOTAL THROMBOPL 43425 [facility] ASTIN 9 [facility] TIME INC INC PARTIAL PLASMA/WH OLE BLOOD TRANSFERA 83117 [facility] SE 9 [facility] ASPARTATE INC INC AMINO AST SGOT TRANSFERA 93833 [facility] SE 9 [facility] ALANINE INC INC AMINO ALT SGPT DOPPLER 83281 [facility], VELOCIMET 9 [facility]ALTH [facility] J RY [facility] UMBILICAL ARTERY [place] PLLC 59899 [facility], BIOPHYSIC 9 [facility] J AL CLINIC OF PROFILE W/O [place] NON-STRES PLLC [place] P[place] 67909 [facility], UTERUS 9 [facility]ALTH [facility] J REAL TIME CLINIC OF F/U TRNSABDL [place] PER FETUS PLL FIBRINOGE 31573 [facility] N 9 [facility] ACTIVITY INC INC PROTHROMB 13628 HYACINTH CLAROS IN TIME 9 [place] [address] HYACIN[facility] BLOOD/URI 9 [facility] C ACID INC INC FIBRIN 30691 [facility] DGRADJ 9 [facility] PRODUCTS INC INC D-DIMER QUAL/SEMI LACI BLOOD 17732 [facility] COUNT 9 [facility] COMPLETE INC INC AUTO&AUTO DIFRNTL WBC URNLS DIP 82810 [facility] 9 [facility] STICK/TAB INC INC LET REAGENT AUTO MICROSCOP Y OBSERVATI 43864 KING CARIAS, ON/INPATI 9 ARETHA Andrade [facility] CARE 55 MINUTES 96243 HY[facility]INTH CL[facility] NONSTRESS 9 [facility] [place] [address]678 [facility] UTERUS 9 HEALTH TASHA J REAL TIME CLINIC OF F/U TRNSABDL [place] PER FETUS [facility] 83564 [facility], BIOPHYSIC 9 HEALTH TASHA J AL CLINIC OF PROFILE W/O [place] NON-STRES [facility] S TESTING DOPPLER 09235 [facility], VELOCIMET 9 HEALTH TASHA J RY CLINIC OF UMBILICAL ARTERY [place] [facility] BLD GLU A4253 [facility] TEST/REAG 9 PHARMACY PHARMACY T STRIPS #591 #591 HOME BLD GLU MON-50 02324 [facility], BIOPHYSIC 9 HEALTH TASHA J AL CLINIC OF PROFILE W/O [place] NON-STRES [facility] S TESTING DOPPLER 11058 [facility], VELOCIMET 9 [facility] J RY CLINIC OF UMBILICAL ARTERY [place] [facility] US PREG 09767 [facility], UTERUS 9 HEALTH TASHA J REAL TIME CLINIC OF F/U TRNSABDL [place] PER FETUS [facility] CUL BACT 72528 COMBINED COMBINED XCPT 9 PHYSICIAN PHYSICIAN URINE S LAB S LAB BLOOD/STO [place]EROBIC [place]OL [place] PREG 55894 [facility], UTERUS 9 HEALTH TASHA J REAL TIME CLINIC OF F/U TRNSABDL [place] PER FETUS [facility] DOPPLER 86266 [facility], VELOCIMET 9 HEALTH TASHA J RY CLINIC OF UMBILICAL ARTERY [place] [facility] 24418 [facility], BIOPHYSIC 9 HEALTH TASHA J AL CLINIC OF PROFILE W/O [place] NON-STRES [facility] [place] P[place] 53799 CENTRAL CENTRAL UTERUS 9 TENRIISM TENRIISM REAL TIME HOSP HOSP F/U TRNSABDL PER FETUS ANTIBODY 88852 COMBINED COMBINED CHLAMYDIA 9 PHYSICIAN PHYSICIAN S LAB S LAB CUL BACT 67262 COMBINED COMBINED XCPT 9 PHYSICIAN PHYSICIAN URINE S LAB S LAB BLOOD/STO OL AEROBIC ISOL US PREG 34819 [facility]ENTRAL CENTRAL UTERUS 9 TENRIISM TENRIISM REAL TIME HOSP HOSP F/U TRNSABDL PER FETUS RADIOLOGI 05001 Imer MONTAGUE 9 MEDICAL RANI Pierson EXAMINATI IMAGING ON CHEST ASSOCIATE SINGLE S VIEW FRONTAL 75816 [facility], NONSTRESS 9 HEALTH TASHA J TEST CLINIC OF [place] [facility] 04477 [facility], NONSTRESS 9 HEALTH TASHA J TEST CLINIC OF HÉCTOR [facility] URNLS DIP 16701 HYACIN[facility] CLAROS 9 [facility] STICK/TAB INC INC LET REAGENT AUTO MICROSCOP Y [place] PREG 86960 [facility]AL CENTRAL UTERUS 9 TENRIISM TENRIISM REAL TIME HOSP HOSP F/U TRNSABDL PER FETUS BLD GLU A4253 [facility] TEST/REAG 8 PHARMACY PHARMACY T STRIPS #591 #591 HOME BLD GLU MON-50 [place] PREG 04156 [facility] UTERUS 8 TENRIISM TENRIISM W/DETAIL HOSP HOSP ANISH 1ST GESTATION DIAB G0109 CENTRAL CENTRAL SELF-MGMT 8 TENRIISM TENRIISM TRN [facility]VC HOSP HOSP GROUP SESSION PER 30 MIN ALPHA-FET 05213 [facility] OF LABONE OF OPROTEIN 8 Tongal INC Tongal INC SERUM URNLS DIP 52586 DHS/CO HYACINTH 8 HEALTH CO HEALTH STICK/TAB [facility]EN[facility]AL CENTER LET RGNT BANK ACCT NON-AUTO W/O MICRSCP GONADOTRO 25317 [facility] OF PIN 8 [facility] [place] [address] [facility] OF ESTRIOL 8 [facility] GLUC BLD 31906 [facility] GLUC MNTR 8 [facility] CLEARED BANK ACCT FDA SPEC HOME USE URNLS DIP 94565 DHS/CO HYACINTH [address] [place] [address] HEALTH STICK/TAB [facility]ENTRAL CENTER LET RGNT BANK ACCT NON-AUTO W/O MICRSCP CYTP 96783 [facility] CERV/VAG [address] [place] [address] AUTO THIN [facility] LAYER BANK ACCT PREP MNL SCREEN BLOOD 80045 [facility] OF TYPING 8 [facility] SEROLOGIC RH (D) ANTIBODY 16640 [facility] OF SCREEN [address] [place] [address] RBC EACH SERUM TECHNIQUE BLOOD 97059 [facility] TYPING 8 [facility] SEROLOGIC ABO IADNA 26607 [facility] NEISSERIA [address] [place] [address] GONORRHOE BANK ACCT AE AMPLIFIED PROBE TQ SYPHILIS 59488 [facility] TEST [address] [place] [address] NON-TREPO [facility] NEMAL BANK ACCT ANTIBODY QUAL COLLECTIO 78136 [facility]/CO HY[facility] N VENOUS [address] [place] [address] BLOOD [facility] VENIPUNCT BANK ACCT URE ANTIBODY 97721 DHS/CO HYACINTH RUBELLA [address] [place] [address] [place] [address] DHS/CO HY[facility]INTH HEPATITIS [address] [place] [address] B [facility] SURFACE BANK ACCT ANTIGEN IADNA 54926 [facility] CHLAMYDIA [address] [place] [address] TRACHOMAT BANK ACCT IS AMPLIFIED PROBE TQ CULTURE 32921 [facility] BACTERIAL 8 [facility] INC INC QUANTTATI [place] [address] [place] UZIEL, UTERUS 8 MEDICAL RANI P REAL TIME IMAGING W/IMAGE ASSOCIATE DCMTN S TRANSVAG URNLS DIP 66198 [facility] CL[facility]OS 8 [facility] STICK/TAB INC INC LET REAGENT AUTO MICROSCOP Y BLOOD 75304 [facility] COUNT 8 [facility] COMPLETE INC INC AUTO&AUTO DIFRNTL WBC GONADOTRO 50307 [facility] PIN 8 [facility] CHORIONIC [place] [address] HY[facility]IN[facility] CL[facility] LIPASE 8 [facility]OS[facility] INC INC URINE 97780 HYACINTH CLAROS 8 [facility] TEST INC INC VISUAL COLOR CMPRSN METHS BLOOD 23307 [facility] COUNT 8 [facility] COMPLETE INC INC AUTO&AUTO DIFRNTL WBC URNLS DIP 22970 [facility] CL[facility]OS 8 [facility] STICK/TAB INC INC LET REAGENT AUTO MICROSCOP [place] PREG 43538 [facility] UTERUS 8 [facility] REAL TIME INC INC W/IMAGE DCMTN TRANSVAG COMPREHEN 38154 [facility] SIVE 8 [facility] METABOLIC INC INC PANEL CULTURE 84544 [facility] BACTERIAL 8 [facility] INC INC QU[place]TTAT[place] [address] [facility] AMYLASE 8 [facility] INC INC Encounters Encounter Start End Date Code Location Performer Type Date OFFICE 58308 [facility] COBIAN OUTPATIEN 7 7 DIABETIC T VISIT CENTER, 25 P MINUTES OFFICE 20549 TRESA GARAY OUTPATIEN 7 7 Viviane CALLE MD,PSC MINUTES OFFICE 49490 Zena WATSON OUTPATIEN 7 7 PHYSICIAN T VISIT GROUP 15 MINUTES OFFICE [address] [facility] [place]IRLEY OUTPATIEN 7 7 PHYSICIAN T VISIT GROUP 15 MINUTES OFFICE 46303 M[facility]O COBIAN OUTPATIEN 7 7 DIABETIC T VISIT CENTER, 25 P MINUTES OFFICE 92374 JAQUELIN VILLEGAS OUTPATIEN 7 7 N FAMILY T VISIT CHIROPRAC 10 T MINUTES OFFICE 43053 MATEO AMJAD OUTPATIEN 6 6 DIABETIC T VISIT CENTER, 15 P MINUTES HOSPITAL HYACINTH - 6 6 [facility] OUTPATIEN INC T OFFICE [address] [facility] JEANINE OUTPATIEN 6 6 PHYSICIAN T VISIT S GROUP 25 MINUTES OFFICE 52222 MATEO AMSTUARTD OUTPATIEN 6 6 DIABETIC T VISIT CENTER, 25 P MINUTES OFFICE 59551 OLYA OLYA OUTPATIEN 6 6 [facility] T VISIT 15 MINUTES HOSPITAL HYACINTH - 6 6 [facility] OUTPATIEN INC T OFFICE 09526 [place] AMJAD SOB OUTPATIEN 6 6 DIABETIC T VISIT CENTER, 25 P MINUTES OFFICE 42131 MATEO AMJAD SOB OUTPATIEN 6 6 DIABETIC T VISIT 5 CENTER, MINUTES P OFFICE 00160 JAQUELIN VILLEGAS OUTPATIEN 6 6 N FAMILY RANDY T VISIT CHIROPRAC 10 T MINUTES OFFICE 23119 OLYA DOBSON OUTPATIEN 6 6 [facility] T VISIT 15 MINUTES OFFICE [address] [facility] LARA OUTPATIEN 6 6 PHYSICIAN DANIKA T VISIT S GROUP 15 MINUTES OFFICE 06853 OLYA DOBSON OUTPATIEN 6 6 [facility] T VISIT 15 MINUTES OFFICE 15213 MATEO MUHAMMADD SOB OUTPATIEN 6 6 DIABETIC T VISIT CENTER, 15 P MINUTES EMERGENCY 84497 JUSTINA SANCHEZ 5 5 PHYSICIAN DEPARTMEN S, PLLC T VISIT HIGH/URGE NT SEVERITY OFFICE 57327 OLYA PAL 5 5 [facility] T VISIT 15 MINUTES OFFICE 80358 JAQUELIN VILLEGAS OUTPATIEN 5 5 N FAMILY RANDY T VISIT CHIROPRAC 10 T MINUTES OFFICE 57640 [place] AMJAD SOB OUTPATIEN 5 5 DIABETIC T VISIT CENTER, 25 P MINUTES OFFICE [address] [facility] LARA OUTPATIEN 5 5 PHYSICIAN DANIKA T VISIT S GROUP 15 MINUTES EMERGENCY 97194 JUSTINA TELLEZ 5 5 PHYSICIAN DEPARTMEN S, PLLC T VISIT MODERATE SEVERITY EMERGENCY 39720 [facility] 5 5 [facility] DEPARTMEN [facility] T VISIT LIMITED/M INOR PROB HOSPITAL HYACINTH - 5 5 [facility] OUTPATIEN [facility] T HOSPITAL HYACINTH - 5 5 [facility] OUTPATIEN [facility] T HOSPITAL HYACINTH [facility] 5 5 [facility] OUTPATIEN [facility] HOSPITAL HYACINTH - 5 5 [facility] OUTPATIEN [facility] T EMERGENCY 71761 JUSTINA SOLORZANO 5 5 PHYSICIAN ANNA DEPARTMEN S, [facility] T [facility]IS[facility] HIGH/URGE NT SEVERITY EMERGENCY 37811 HYACINTH 5 5 [facility] T VISIT MODERATE SEVERITY HOSPITAL HYACINTH - 5 5 [facility] OUTPATIEN [facility] HOSPITAL HYACINTH - 5 5 [facility] OUTPATIEN [facility] T OFFICE 90804 MATEO HAZELSWEETIE OUTPATIEN 5 5 FOOT & N SHABNAM T VISIT ANKLE CE 15 MINUTES OFFICE 92154 OLYA DOBSON OUTPATIEN 5 5 [facility] T VISIT 15 MINUTES OFFICE 68264 MATEO REESEMARJORIE OUTPATIEN 5 5 DIABETIC R TAR T VISIT CENTER 25 MINUTES EMERGENCY 72723 JUSTINA SOLORZANO 5 5 PHYSICIAN ANNA DEPARTMEN S, [facility] T VISIT MODERATE SEVERITY OFFICE [address] [facility] MIKAYLA OUTPATIEN 5 5 PHYSICIAN CAM T VISIT S GROUP 10 MINUTES HOSPITAL HYACINTH - 5 5 [facility] OUTPATIEN [facility] T OFFICE [address] [facility] OJEDA OUTPATIEN 5 5 PHYSICIAN MARGOTH T VISIT S GROUP 15 MINUTES OFFICE [address] [facility] SCHULSTAD OUTPATIEN 5 5 PHYSICIAN CAM T VISIT S GROUP 15 MINUTES EMERGENCY 92979 JUSTINA SOLORZANO 5 5 PHYSICIAN ANNA DEPARTMEN S, PLLC T VISIT HIGH/URGE NT SEVERITY OFFICE [address] [facility] [place] OUTPATIEN 5 5 PHYSICIAN MARGOTH T VISIT S GROUP 15 MINUTES OFFICE [address] [facility] OJED[place] OUTPATIEN 5 5 PHYSICIAN MARGOTH T NEW 20 S GROUP MINUTES HOSPITAL [facility] - 5 5 [facility] T EMERGENCY 02242 JUSTINA ULLOA 5 5 PHYSICIAN LINARES DEPARTMEN S, PLLC T VISIT HIGH/URGE NT SEVERITY HOSPITAL [facility]ACIN[facility] - 5 5 [facility] INC T OFFICE 95072 OLYA DOBSON OUTPATIEN 5 5 [facility] T VISIT 15 MINUTES OFFICE 21157 MATEO WOLF OUTPATIEN 5 5 DIABETIC T VISIT CENTER, 25 P MINUTES OFFICE [address] [facility] YMAN OUTPATIEN 5 5 PHYSICIAN EUG T VISIT S GROUP 10 MINUTES OFFICE [address] [facility] JEANINE OUTPATIEN 5 5 PHYSICIAN ANNA T VISIT S GROUP 15 MINUTES OFFICE 04375 [facility]AC[facility] PAIZ OUTPATIEN 5 5 [facility] ANNA T VISIT HOSPITAL 15 MINUTES OFFICE 18226 MATEO WOLF OUTPATIEN 5 5 DIABETIC T VISIT CENTER [address] PEDROZA OUTPATIEN 5 5 DANIEL Leon SHABNAM T VISIT MIRTA 15 DPM PSC MINUTES OFFICE 91320 OLYA DOBSON OUTPATIEN 5 5 [facility] T [facility] 15 MINUTES [facility]OSP[facility] HYACINTH - 5 5 [facility] T [facility] - 5 5 [facility] T OFF[facility] 81961 [facility] OUTPATIEN 5 5 HEALTH AYAD T VISIT MEDICAL 40 GROUP MINUTES OFFICE 38016 JAQUELIN VILLEGAS OUTPATIEN 5 5 N FAMILY RANDY T VISIT CHIROPRAC 10 T MINUTES OFFICE [address] [facility] LARA OUTPATIEN 4 4 PHYSICIAN DANIKA T VISIT S GROUP 15 MINUTES OFFICE 87178 OLYA DOBSON OUTPATIEN 4 4 [facility] T VISIT 15 MINUTES OFFICE 22997 [facility] JONES TRA OUTPATIEN 4 4 [place] T VISIT ORTHOPAED 15 [facility] MINUTES OFFICE 49015 [facility] CONSULTAT 4 4 NEUROLOGY AYAD ION NEW/ESTAB CONSULTAN PATIENT T 60 MIN OFFICE [address] [facility] OUTPATIEN 4 4 PHYSICIAN T VISIT S GROUP 25 MINUTES OFFICE 96791 OLYA DOBSON OUTPATIEN 4 4 [facility] T VISIT 15 MINUTES OFFICE 29000 [facility] JONES TRA OUTPATIEN 4 4 [place] T VISIT ORTHOPAED 15 [facility] MINUTES OFFICE 05612 OLYA DOBSON OUTPATIEN 4 4 [facility] T V[facility] [address] [facility] 4 4 [facility] EMERGENC[facility] T VISIT PHYS HIGH/URGE NT SEVERITY OFFICE 89161 [place] RICHARDSO OUTPATIEN 4 4 FOOT & N SHABNAM T VISIT ANKLE CE 15 MINUTES OFFICE 84024 JONES TRA JONES TRA OUTPATIEN 4 4 T VISIT 15 MINUTES OFFICE 99252 [place] RICH[facility] OUTPATIEN 4 4 FOOT & N SHABNAM T NEW 30 ANKLE CE MINUTES OFFICE 89842 OLYA DOBSON OUTPATIEN 4 4 [facility] T VISIT 15 MINUTES OFFICE 90961 BAKARI VILLEGAS OUTPATIEN 4 4 RANDY RANDY T VISIT 10 MINUTES EMERGENCY 49429 JEANINE SOLORZANO 4 4 ANNA ANNA DEPARTMEN T VISIT HIGH/URGE NT SEVERITY OFFICE 75831 OLYA DOBSON OUTGEOVANNAEN 4 4 [facility] T VISIT 15 MINUTES OFFICE 24726 BAKARI VILLEGAS OUTPATIEN 4 4 RANDY RANDY T VISIT 10 MINUTES OFFICE 75345 BAKARI VILLEGAS OUTPATIEN 4 4 RANDY RANDY T VISIT 10 MINUTES HOSPITAL HYACINTH - 4 4 [facility] OUTPATIEN INC T OFFICE 92471 [facility] L[place] OUTPATIEN 4 4 DANIKA DANIKA T VISIT 15 MINUTES OFFICE 34360 BAKARI PAL 4 4 RANDY RANDY T NEW 30 MINUTES OFFICE 18174 OLYA PAL 4 4 [facility] T VISIT 15 MINUTES OFFICE 05041 OLYA PAL 4 4 [facility] T VISIT 15 MINUTES OFFICE 56367 OLYA PAL 4 4 [facility] T VISIT 15 MINUTES PERIODIC 17435 [facility] [place] PREVENTIV 4 4 DANIKA DANIKA E MED EST PATIENT 18-39 YRS OFFICE 16047 OLYA PAL 3 3 [facility] T VISIT 15 MINUTES EMERGENCY 14560 PARISH NESBITT 3 3 DEPARTMEN T VISIT MODERATE SEVERITY OFFICE 85340 ADEOLA VILLALTA ADEOLA AMBAR OUTPATIEN 3 3 T VISIT 15 MINUTES OFFICE 19132 OLYA PAL 3 3 [facility] T VISIT 15 MINUTES EMERGENCY 28762 JEANINE SOLORZANO 3 3 ANNA ANNA DEPARTMEN T VISIT HIGH/URGE NT SEVERITY [facility]OSPITAL [facility]ACIN[facility] - 3 3 [facility]PATI[facility] INC T OFFICE 10164 ADEOLA MCCANNCH ANT OUTPATIEN 3 3 T VISIT 25 MINUTES OFFICE 18958 WIL[facility] MUÑIZ OUTPATIEN 3 3 T VISIT 25 MINUTES HOSPITAL HYACINTH - 3 3 [facility] OUTPATIEN INC T EMERGENCY 95956 HYACINTH 3 3 [facility] DEPARTMEN INC T VISIT MODERATE SEVERITY [facility]OSPITAL HYACINTH - 3 3 [facility] OUTPATIEN INC T EMERGENCY 01386 LUZ ESCOBAR DEPT 3 3 III FIDE III FIDE VISIT HIGH SEVERITY& THREAT [facility] OFFICE 67935 OLYA PAL 3 3 [facility] T VISIT 15 MINUTES OFFICE 93690 OLYA PAL 3 3 [facility] T VISIT 15 MINUTES OFFICE 77685 WILMER MUÑIZ OUTPATIEN 3 3 T VISIT 15 MINUTES [facility]OSP[facility] - [facility] 3 [facility] T OFFICE 01197 ADEOLA MIR ANT OUTPATIEN 3 3 T VISIT 25 MINUTES EMERGENCY 72060 SHAUN RASHID DEPT 3 3 EMERGENCY FIDE VISIT SERVICES HIGH SEVERITY& THREAT [facility] HYACINTH - 3 3 [facility] T EMERGENCY 19532 HYACITNH 3 3 [facility] DEPARTMEN INC T VISIT LOW/MODER SEVERITY OFFICE 03301 GUILLENENS ANTONINO MUÑIZ OUTPATIEN 2 2 T VISIT 15 MINUTES OFFICE 37182 [facility]A PAL 2 2 [facility]UTES OFFICE 99623 OLYA PAL 2 2 [facility] T [facility]ISIT 15 MINUTES OFFICE 27183 ADEOLA ANT ADEOLA ANT OUTPATIEN 2 2 T VISIT 15 MINUTES [facility] 94023 [place] L[place] PREVENTIV 2 2 DANIKA DANIKA E MED EST PATIENT 18-39 YRS OFFICE 03999 [facility] OUTPATIEN 2 2 LTH SLEEP T VISIT AND REHA 10 MINUTES [facility] HYACINTH - 2 2 [facility] OUTPATIEN INC T OFFICE 37863 OLYA DOBSON OUTPATIEN 2 2 [facility] T VISIT 15 MINUTES OFFICE 66789 WILMER GUILLEN ANTONINO OUTPATIEN 2 2 T VISIT 25 MINUTES OFFICE 40435 [place] OUTPATIEN 2 2 DANIKA DANIKA T VISIT 15 MINUTES [facility] HYACINTH - 2 2 [facility] OUTPATIEN [facility] T OFFICE 52381 OLYA DOBSON OUTPATIEN 2 2 [facility] T VISIT 15 MINUTES OFFICE 58925 [facility] HILARIO II OUTPATIEN 2 2 [facility] SLEEP VINCENT T NEW 30 AND REHA MINUTES OFFICE 54691 OLYA DOBSON OUTPATIEN 2 2 [facility] T VISIT 15 MINUTES OFFICE 49307 [place] OUTPATIEN 2 2 DANIKA DANIKA T VISIT 25 MINUTES HOSPITAL [facility] - 2 2 [facility] T OFFICE 43910 WILMER GUILLEN ANTONINO OUTPATIEN 2 2 T NEW 45 MINUTES OFFICE 90095 ADEOLA ANT ADEOLA ANT OUTPATIEN 2 2 T VISIT 25 MINUTES OFFICE 31806 WHANG LANI WHANG LANI CONSULTAT 2 2 ION NEW/ESTAB PATIENT 40 MIN OFFICE 09698 WHANG LANI WHANG LANI OUTPATIEN 2 2 T NEW 30 MINUTES OFFICE 60451 JONES TRA JONES TRA OUTPATIEN 2 2 T VISIT 15 MINUTES OFFICE 00302 JONES TRA JONES TRA OUTPATIEN 2 2 T VISIT 10 MINUTES OFFICE 70361 JONES TRA JONES TRA OUTPATIEN 2 2 T VISIT 15 MINUTES OFFICE 63492 OLYA DOWLINGOLD OUTPATIEN 2 2 [facility]UTES [facility]ACIN[facility] - 2 2 [facility] T OFFICE 69007 ADEOLA ANT ADEOLA ANT OUTPATIEN 2 2 T VISIT 25 MINUTES OFFICE 84648 LAWRENCE HAM LAWRENCE HAM OUTPATIEN 2 2 T VISIT 15 MINUTES OFFICE 77430 LAWRENCEKURT DIAZIK HAM OUTPATIEN 2 2 T VISIT 15 MINUTES EMERGENCY 09492 SHAUN HOLLAND DEPT 2 2 EMERGENCY VISIT SERVICES HIGH SEVERITY& THREAT [facility] EMERGENCY 68822 HYACINTH 2 2 [facility] DEPARTMEN INC T VISIT MODERATE SEVERITY [facility]OSPITAL HYACINTH - 2 2 [facility] OUT[facility] INC T OFFICE 01003 ADEOLA ANT ADEOLA ANT OUTPATIEN 2 2 T NEW 45 MINUTES OFFICE 16417 JEANINE JEANINE OUTPATIEN 2 2 ANNA ANNA T NEW 20 MINUTES OFFICE 84037 LAWRENCEKURT BRAVO HAM OUTPATIEN 2 2 T VISIT 15 MINUTES HOSPITAL HYACINTH - 2 2 [facility] T OFFICE 10453 HYACINTH OUTPATIEN 2 2 [facility] NEW 10 HOSPITAL MINUTES P OFFICE 34109 NITESHVICKEY NITESHVICKEY OUTPATIEN 1 1 [facility] T VISIT 15 MINUTES OFFICE 98625 LAWRENCE HAM LAWRENCE HAM OUTPATIEN 1 1 T VISIT 15 MINUTES OFFICE 81932 LAWRENCE HAM LAWRENCE HAM OUTPATIEN 1 1 T VISIT 15 MINUTES EMERGENCY 15186 LIANG MARGOTH LIANG MARGOTH 1 1 DEPARTMEN T VISIT HIGH/URGE NT SEVERITY [facility]OSP[facility] - 1 1 [facility] T EMERGENCY 88155 HYACINTH 1 1 [facility] DEPARTMEN INC T VISIT MODERATE SEVERITY OFFICE 91103 LAWRENCE HAM LAWRENCE HAM OUTPATIEN 1 1 T VISIT 15 MINUTES OFFICE 93831 LAWRENCE HAM LAWRENCE HAM OUTPATIEN 1 1 T VISIT 15 MINUTES OFFICE 08378 LAWRENCE HAM LAWRENCE HAM OUTPATIEN 1 1 T VISIT 15 MINUTES OFFICE 29307 LAWRENCE HAM LAWRENCE HAM OUTPATIEN 1 1 T VISIT 15 MINUTES OFFICE 62290 NITESHVICKEY DOBSON OUTPATIEN 1 1 [facility] T VISIT 15 MINUTES OFFICE 39317 [facility]ENTRAL JARVIS OUTPATIEN 1 1 [place] [facility] T VISIT ORTHOPAED 15 [facility] MINUTES OFFICE 29398 CENTRAL JARVIS CONSULTAT 1 1 [place] [facility] ION ORTHOPAED NEW/ESTAB [facility] PATIENT 40 MIN HOSPITAL HYACINTH - 1 1 [facility] OUTPATIEN INC T EMERGENCY 41600 HYACINTH 1 1 [facility] MODERATE SEVERITY EMERGENCY 75172 SHAUN PEREYRA 1 1 EMERGENCY [facility] T VISIT HIGH/URGE NT SEVERITY HOSPITAL HYACINTH - 1 1 [facility] OUTPATIEN INC T OFFICE 37957 [facility] OUTPATIEN 1 1 HEALTH DANIKA T VISIT CLINIC OF 15 [place]OL[place] MINUTES EMERGENCY 43597 [facility] LOW/MODER SEVERITY EMERGENCY 22168 SHAUN ESCOBAR 1 1 EMERGENCY III [facility] DEPARTMEN SERVICES T VISIT HIGH/URGE NT SEVERITY HOSPITAL HYACINTH - 1 1 [facility] OUTPATIEN [facility] OFFICE 82148 [facility] OUTPATIEN 1 1 HEALTH DANIKA T VISIT CLINIC OF 15 [place]OL[place] MINUTES HOSPITAL HYACINTH - 1 1 [facility] OUTPATIEN [facility] HYACINTH - 1 1 [facility] OUTPATIEN [facility] T OFFICE 23297 OLYA DOBSON OUTPATIEN 1 1 [facility] T NEW 30 MINUTES OFFICE 60810 [facility] OUTPATIEN 1 1 HEALTH DANIKA T VISIT CLINIC OF 15 [place] MINUTES [facility] 91043 [facility] L[facility] PREVENTIV 0 0 HEALTH DANIKA E MED EST CLINIC OF PATIENT ROLAND 18-39 YRS EMERGENCY 88645 SHAUN ESCOBAR 0 0 EMERGENCY III, [facility] T VISIT HIGH/URGE ASSOCIATE NT S SEVERITY EMERGENCY 76074 HYACINTH 0 0 [facility] T VISIT LOW/MODER SEVERITY HOSPITAL HYACINTH - 0 0 [facility] 91837 [facility], OUTPATIEN 9 9 HEALTH TASHA J T VISIT CLINIC OF 15 MINUTES [facility] EMERGENCY 41787 SHAUN HERNANDEZ, 9 9 [facility] T VISIT HIGH/URGE ASSOCIATE NT S SEVERITY EMERGENCY 68768 HYCAINTH 9 9 [facility] T VISIT LIMITED/M [facility] HYACINTH - 9 9 [facility] HOSPITAL HYACINTH - 9 9 [facility] T OFFICE 35002 [facility], OUTPATIEN 9 9 HEALTH TASHA J T VISIT CLINIC OF 25 MINUTES [facility] OFFICE 39291 [facility], OUTPATIEN 9 9 HEALTH TASHA J T VISIT CLINIC OF 15 MINUTES [facility] HYACINTH - 9 9 [facility] INPATIENT [facility] HYACINTH - 9 9 [facility] OUTPATIEN [facility] HYACINTH - 9 9 [facility] OUTPATIEN [facility] HOSPITAL CENTRAL - 9 9 [facility] T OFFICE 69128 [facility], OUTPATIEN 9 9 HEALTH TASHA J T VISIT CLINIC OF 15 MINUTES [facility] OFFICE 78288 [facility], OUTPATIEN 9 9 HEALTH TASHA J T VISIT CLINIC OF 15 MINUTES [facility] OFFICE 00140 JORDON DSOUZA 9 9 SHANELLE ION DIAGNOSTI A NEW/ESTAB CCENTER PATIENT 15 MIN [facility] CENTRAL - 9 9 [facility] T OFFICE 68734 ROSENTHALQUINCY ROSENTHAL OUTPATIEN 9 9 Kaylie DOMINGUEZ JR, Kaylie Mariscal T VISIT 15 MINUTES [facility] HYACINTH - 9 9 [facility] 79313 HYACINTH 9 9 [facility] VISIT MODERATE SEVERITY OFFICE 88474 [facility], OUTPATIEN 9 9 HEALTH TASHA J T VISIT CLINIC OF 15 MINUTES [facility] HYACINTH - 9 9 [facility] 01020 [facility], OUTPATIEN 9 9 HEALTH TASHA J T VISIT CLINIC OF 15 MINUTES [facility] HYACINTH - 9 9 [facility] T OFFICE 24917 [facility], OUTPATIEN 9 9 HEALTH TASHA J T VISIT CLINIC OF 15 MINUTES [facility] 25015 ANGELA MAL, 9 9 [facility] VISIT ON HIGH/URGE NT SEVERITY [facility]OSPITAL HYACINTH - 9 9 [facility] OUTPAT[facility] INC T EMERGENCY 23144 HYACINTH 9 9 [facility] DEPARTMEN INC T VISIT LIMITED/M [facility] CENTRAL - 9 9 [facility] T OFFICE 72948 ARIADNA BAILEYILLO OUTPATIEN 8 8 JR, Kaylie V JR, J V T VISIT 15 MINUTES EMERGENCY 66200 HYACINTH 8 8 [facility] DEPARTMEN INC T VISIT LIMITED/M [facility] HYACINTH - 8 8 [facility] OUTPAT[facility]EN [facility] T HOSPITAL CENTRAL - 8 8 [facility] T OFFICE 72819 [facility] OUTPAT[facility] 8 8 [facility] T VISIT [facility] 10 [facility] MINUTES OFFICE 42444 [facility] HYACIN[facility] OUTPATIEN 8 8 [facility] T NEW 30 [facility] MINUTES [facility] YHACINTH - 8 8 [facility] OUTPATIEN INC T EMERGENCY 83916 HYACINTH 8 8 [facility] DEPARTMEN INC T VISIT MODERATE SEVERITY EMERGENCY 54274 HYACINTH 8 8 [facility] DEPARTMEN INC T VISIT HIGH/URGE NT SEVERITY HOSPITAL HYACINTH - 8 8 [facility] OUTPAT[facility]EN INC T
--- OUTSIDE RECORDS SUMMARY | 2016-12-07 19:01 | External Medical Summary Rpt | CCD ---
Demographics Preferred Language Latvian Marital Status Unknown Quaker Affiliation Unknown Race Unknown Ethnic Group Unknown Author Author , SHAILESH ALEMAN Address Unknown Phone Immunization Unable to retrieve immunization data due to connection failure with Immunization Registry. Please try again later.
--- OUTSIDE RECORDS SUMMARY | 2016-12-07 19:01 | External Medical Summary Rpt | CCD ---
Demographics Preferred Language Estonian Marital Status Unknown Catholic Affiliation Unknown Race Unknown Ethnic Group Unknown Author Author , SHAILESH ALEMAN Address Unknown Phone Immunization Unable to retrieve immunization data due to connection failure with Immunization Registry. Please try again later.
[2016-12-07] MEDS ORDERED: TESSALON PERLE100 M1 PO (19:05)
[2016-12-07] MEDS ORDERED: AMOXICILLIN 50500 MG PO (19:05)
[2016-12-07 19:09] VITALS: BP 116/69
== END 2016-12-07 19:13 | disposition home or self-care (01) ==
LOC: UTC 18:26
DX: H66.91 Otitis media, unspecified, right ear (principal); I10 Essential (primary) hypertension; J45.909 Unspecified asthma, uncomplicated; E11.40 Type 2 diabetes mellitus with diabetic neuropathy, unspecified; Z79.899 Other long term (current) drug therapy; F17.210 Nicotine dependence, cigarettes, uncomplicated

== ENCOUNTER 2017-01-15 19:01 | Emergency (ER) | payer MEDICAID ==
[~2017-01-15] VITALS: Ht 170.2 cm; Wt 126.6 kg
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
--- OUTSIDE RECORDS SUMMARY | 2017-01-15 19:06 | External Medical Summary Rpt | CCD ---
Author Author Conduent Organization Conduent Address Unknown Phone Unavailable Purpose Continuity of Care Document - through 2016
--- OUTSIDE RECORDS SUMMARY | 2017-01-15 19:06 | External Medical Summary Rpt | CCD ---
Demographics Preferred Language Mozambican Marital Status Unknown Zoroastrianism Affiliation Unknown Race Unknown Ethnic Group Unknown Author Author , SHAILESH ALEMAN Address Unknown Phone Immunization No patient found.
--- OUTSIDE RECORDS SUMMARY | 2017-01-15 19:06 | External Medical Summary Rpt | CCD ---
Demographics Preferred Language Grenadian Marital Status Unknown Baptism Affiliation Unknown Race Unknown Ethnic Group Unknown Author Author , SHAILESH ALEMAN Address Unknown Phone Immunization No patient found.
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
--- NOTE | 2017-01-15 19:53 | Urgent Treatment Center Report ---
History of Present Issue Date/Time Seen by Provider 01/15/171951 Visit Reason Pt arrived:Walked Presenting Problem:COUGH, SORE THROAT, DRAINGE Location if Accident: Onset of symptoms date/time:/ or onset unknown for:MEDICAL HX UNKNOWN Have you (or family members/close friends) recently traveled outside the [place]? N If Yes, where/when: Have you had exposure to infectious disease within the past month? TB? Other? Specify: c/o cough, rhinorrhea, nasal congestion, sore throat x 3-4 days. No improvement with dayquil once. Hasn't taken or tried anything else. Son with same symptoms. Source patient Exam Limitations no limitations ALLERGIES Coded Allergies: Honey Bee (BEE,HONEY) (Mild, 12/28/14) milk (Mild, 05/03/15) Uncoded Allergies: CONTRAST MEDIA (Mild, 05/03/15) TAPE (S-BLISTERING WELTS 04/13/11) DISHWASHING LIQUID (STATES IT EATS THE SKIN OFF HER HANDS 08/19/12) Home Medications Active Scripts Ranitidine Hcl (Ranitidine 150MG) 150 MG PO DAILY #30 TAB Prov: 11/13/14 Reported Medications LISINOPRIL (Lisinopril) 10 MG PO DAILY Meloxicam (Meloxicam 15MG) 15 MG PO DAILY #30 AMITRIPTYLINE HCL (Amitriptyline) 15 MG PO QHS History Medical History General CAD? No Angina: No PR: No Hypertension? Yes Hyperlipidemia? No CHF? No DVT? No PE? No COPD? No Asthma? Yes Anemia? No GERD? Yes Gastric ulcers? No GI Bleed? No Hernia? Yes Thyroid Problems? No Hypothyroidism? No CVA? No Seizures? No Diabetes? Yes Insulin Dependent: No Insulin Pump: No Home FSBS? No Renal Insuffiency? No UTI? No Stones? No BPH? No GB Disease: Yes Nephritic Syndrome? No Asplenia? No Hepatitis? No Sickle Cell Disease? No Arthritis? No Migraines? No Cataracts? No Glaucoma? No MRSA? No HIV? No TB? No Anxiety? No Depression? No Cancer? No More? Yes Additional hx: NEUROPATHY Immunization HX DT/Tetanus UNKNOWN Flu NEVER Pneumonia NEVER Surgical Hx Previous Surgery?Y CHOLECYSTECTOMY 2007 ERCP STENT REPLACEMENT& D & C C- SECTION 06/18/08 D&E Family History Family HX Diabetes Yes CAD No Hypertension Yes Hyperlipidemia Yes Cancer No TB No Social History Smoking Hx Smoker: Current Every Day Smoker Tobacco: Yes Type Cigarettes Packs/day 1 1/2 - 2 Packs Alcohol Alcohol: No Review of Systems All Other Systems Reviewed and Negative Constitutional see HPI, denies chills, denies fever, denies malaise Eyes denies drainage ENT see HPI, ear pain ("more pressure"), throat pain ("in the morning and nights"). denies: ear discharge. Respiratory see HPI, denies shortness of breath, denies stridor, denies wheezing Cardiovascular denies chest pain Gastrointestinal denies no symptoms reported Musculoskeletal denies joint pain Skin denies rash Psychiatric/Neurological denies headache Physical Exam Vital Signs Vital Signs Date Time Temp Pulse Resp B/P Pulse O2 O2 Flow FiO2 Ox Delivery Rate 01/15 1921 98.4 88 16 133/78 98 General Appearance normal appearance, no apparent distress Ear, Nose, Throat normal ENT inspection (x/ nasal congestion & PND) Neck non-tender, supple Respiratory Status Yes: trachea midline, chest symmetrical, non productive cough. No: respiratory distress, use of accessory muscles. Lung Sounds anterior: lungs clear. posterior: lungs clear. bilateral: lungs clear. Cardiovascular regular rate/rhythm, no peripheral edema, no murmur Neurologic alert, oriented x 3 Mental status normal mood/affect Skin normal color, warm/dry Lymphatic no adenopathy Medical Decision Making LABS/Meds/Orders Pt receiving controlled substance in ED? No Results/Orders Laboratory Tests 01/15/171924: Group A Strep Screen NOT DETECTED Orders Procedure Date/time Status [facility] STREP SCREEN 01/15 1925 Complete Departure Departure Time of Disposition 2014 Disposition DC Home or Self Care(routine) Clinical Impression Primary Impression: Upper respiratory virus Condition STABLE Referrals Colby ENG,Satya Parr (Family) IMMEDIATELY for new or worsening symptoms OR no noticeable improvement over the next 48-72 hours. 911 for difficulty breathing or swallowing. Patient Instructions DI for Viral Upper Respiratory Infection -- Adult Additional Instructions * No sign of bacterial infection. Likely viral. Virus can take 7-14 days to run their course * Monitor Temp. FU if fever develops * Encourage fluids, water, gatorade, powerade, pedialyte if /toddler/child * warm salt water gargles * warm fluids * sore throat lozenges * sleep elevated * humidifier/vaporizer * flonase 2 sprays each nostril daily but may take 2-3 days to notice improvement with it. * Bromfed may cause drowsiness. Know how it effects you (or your child) before driving, caring for small children, or sending your child to school. No other antihistamines/allergy medications while taking bromfed. * * Your throat swab was sent for culture. Those results are typically sent to your primary care. Be sure to follow up in 2-3 days if no improvement so they can review those results and treat if necessary. If you don't have primary care, I recommend you get one but in the mean time, you will have to return to a walk in clinic. Discharge Counseling Counseled pt/family regarding diagnosis, test results, medications/RX, home care, follow up needs Prescriptions Current Visit Scripts D-METHORPHAN HB/P-EPD HCL/BPM (Bromfed Dm Cough Syrup) 10 ML PO QIDP PRN cough #240 ML at 2023
[2017-01-15] MEDS ORDERED: BROMFED DM COU118 ML PO (20:18)
[2017-01-15 20:19] VITALS: BP 133/78
== END 2017-01-15 20:21 | disposition home or self-care (01) ==
LOC: UTC 19:01
DX: J06.9 Acute upper respiratory infection, unspecified (principal); I10 Essential (primary) hypertension; F17.210 Nicotine dependence, cigarettes, uncomplicated

== ENCOUNTER → 2017-01-28 | Outpatient (CLI) | payer MEDICAID ==
[~2017-01-28] MED LIST changes: +BROMFED DM COU118 ML PO
[2017-01-28 14:38] LABS: BUN 11 mg/dL (7-18)
[2017-01-28 14:39] LABS: GFR (ESTIMATED) 69 ML/MIN (59-)
== END ==
LOC: LAB 10:57
PROVIDERS: Family Medicine
DX: I10 Essential (primary) hypertension (principal); E11.9 Type 2 diabetes mellitus without complications